=== PATIENT | male | born 1945 | race Caucasian/White ===

== ENCOUNTER 2021-04-12 05:41 | Emergency (ER) | payer MEDICARE, SELFPAY ==
[2021-04-12 05:44] VITALS: BP 166/84; PULSE 102; RESP 18; TEMP 36.9; O2SAT 96
[2021-04-12 06:13] LABS: Add Urine Microscopic? YES; Appearance Urine Cloudy (Clear); Bacteria Urine Trace /hpf; Bilirubin Urine Negative (Negative); Blood Urine 1+ (Negative); Color Urine Yellow (Yellow); Glucose Urine UA 3+ mg/dL (Negative); Ketones Urine Trace mg/dL (Negative); Leukocyte Esterase Ur 3+ LEU/UL (Negative); Mucus Urine Rare /lpf; Nitrate Urine Negative (Negative); Protein Urine 3+ mg/dL (Negative); RBC Urine 21-50 /hpf (0-2); Specific Grav Ur 1.009 (1.001-1.035); Squamous Epithelial Cell Urine Rare /hpf (Few); Urobilinogen Urine Negative mg/dL (<2.0); WBC Urine >75 /hpf
[2021-04-12 06:16] LABS: Alanine Aminotransferase 18 U/L (4-50); Albumin Level 3.9 g/dL (3.5-5.1); Alkaline Phosphatase 96 U/L (38-126); Anion Gap 9 mmol/L (8-16); Aspartate Amino Transferase 27 U/L (17-59); Bilirubin,Total 0.7 mg/dL (0.2-1.3); Blood Urea Nitrogen 22 mg/dL (9-20); Calcium 9.1 mg/dL (8.4-10.2); Carbon Dioxide 26 mmol/L (22-30); Chloride 103 mmol/L (98-107); Estimated CRCL calculation 54 ml/min; Estimated Glomerular Filt Rate 49; Glucose 238 mg/dL (75-110); Potassium 4.1 mmol/L (3.4-5.0); Sodium 138 mmol/L (137-145)
[2021-04-12 06:24] LABS: Basophils Absolute Auto 0.1 K/mm3 (0.0-0.1); Basophils Percent Auto 0.5 % (0.2-1.2); Eosinophils Absolute Auto 0.1 K/mm3 (0-0.3); Eosinophils Percent Auto 0.8 % (0-4.4); Hematocrit 38.4 % (42.0-52.0); Hemoglobin 12.4 g/dL (14.0-18.0); Immature Granulocyte Absolute 0.05 K/mm3 (0.00-0.031); Immature Granulocyte Percent A 0.4 % (0-0.5); Lymphocytes Absolute Auto 1.09 K/mm3 (0.9-3.2); Lymphocytes Percent Auto 8.8 % (18.3-44.2); Mean Corpuscular HGB Conc 32.3 g/dl (32-36); Mean Platelet Volume 10.3 fl (7.4-10.4); Monocytes Percent Auto 7.7 % (2.6-8.5); Neutrophils Absolute Auto 10.1 K/mm3 (1.3-6.7); Neutrophils Percent Auto 81.8 % (45.5-73.1); Platelet Count Result 193 k/mm3 (150-375); Red Blood Count 3.88 M/mm3 (4.6-6.20); Red Cell Distribution Width 15.7 % (11.5-14.5); White Blood Count 12.4 K/mm3 (4.5-10.0)
--- NOTE | 2021-04-12 07:06 | ED.MALEGU ---
HPI - Male Genitourinary General Chief complaint: Urogenital-Male Stated complaint: INCREASE URINATION Time Seen by Provider: 04/12/21 07:05 History of Present Illness HPI Narrative: dysuria, urinary frequency, urgency for the past 2 days. Reports going a small amount every 10 minutes. He has never had this problem before. No h/o BPH, UTI. Denies abdominal pain, vomiting, fever, hematuria, chest pain, SOB. Reports good blood sugar control. Last A1C 6.7. Related Data Home Medications Medication Instructions Recorded Confirmed allopurinol 300 mg PO BID 04/12/21 04/12/21 amlodipine benzoate 10 mg PO DAILY 04/12/21 04/12/21 clopidogrel 75 mg PO DAILY 04/12/21 04/12/21 doxazosin [Cardura] 2 mg PO DAILY 04/12/21 04/12/21 glipizide mg PO 04/12/21 hydralazine-hydrochlorothiazid cap PO 04/12/21 insulin detemir U-100 [Levemir 100 unit SUBCUT DAILY 04/12/21 04/12/21 U-100 Insulin] isosorbide mononitrate 120 mg PO DAILY 04/12/21 04/12/21 levothyroxine 88 mcg PO DAILY 04/12/21 04/12/21 levothyroxine [Euthyrox] 88 mcg PO DAILY 04/12/21 04/12/21 losartan 25 mg PO DAILY 04/12/21 04/12/21 magnesium oxide 400 mg PO DAILY 04/12/21 04/12/21 metoprolol succinate 25 mg PO DAILY 04/12/21 04/12/21 Allergies Allergy/AdvReac Type Severity Reaction Status Date / Time Hbavlbb-Xza-Uhy Reductase Allergy Rash Verified 04/12/21 06:00 Inhibitor Review of Systems Review of Systems: All systems reviewed & are unremarkable except as noted in HPI and below Constitutional: Constitutional: Denies chills and Denies fever(s) Cardiovascular: Cardiovascular: Denies chest pain Respiratory: Respiratory: Denies dyspnea Gastrointestinal: Gastrointestinal: Denies abdominal pain, Denies diarrhea and Denies vomiting Genitourinary: Genitourinary: Denies hematuria, Reports dysuria, Denies penile discharge, Denies testicular pain, Reports urinary frequency and Denies urinary incontinence Musculoskeletal: Musculoskeletal: Denies back pain Neurologic: Reports system reviewed and no additional complaints, except as documented Endocrine: Endocrine: Reports polyuria PMFSH Past Medical History Medical History (Updated 04/12/21 @ 07:27 by Josh Kraft MD) A-fib Chronic kidney disease Coronary artery disease Diabetes Hypertension Hypothyroidism Myocardial infarct, old Obesities, morbid Sleep apnea Social History Social History (Updated 04/12/21 @ 07:23 by Josh Kraft MD) Substance use: never Gender identity (if verbalized by the patient): Male Sexual Orientation (if Verbalized by the Patient): Straight or Heterosexual Exam Const: General: no acute distress and alert Orientation/consciousness: patient oriented x3 HENMT: Head: normal to inspection Neck: Neck: normal visual inspection Resp: Effort & Inspection: normal respiratory effort Auscultation: clear to auscultation bilaterally, no rales, no rhonchi and no wheezes Cardio: Jugular venous distension: no JVD Rate: regular rate Rhythm: regular rhythm Heart sounds: no murmurs GI: Inspection: non-distended GI Palp: Yes Soft to palpation and No Tenderness to palpation present (GI) : General: Yes bladder normal to palpation and Yes no CVA tenderness Skin: General skin exam: normal color Neuro: General: patient oriented x3, moves all extremities and no focal motor deficits Cranial nerves: Yes CN's II-XII intact bilaterally Speech: normal speech Extrem: General: edema left (mild) Psych: Appearance: well kempt Affect: normal affect Course Vital Signs Vital signs: Vital Signs Temperature 36.9 C 04/12/21 05:44 Pulse Rate 102 H 04/12/21 05:44 Respiratory Rate 18 04/12/21 05:44 Blood Pressure 166/84 H 04/12/21 05:44 Pulse Oximetry 96 04/12/21 05:44 Temperature 36.9 C 04/12/21 05:44 Pulse Rate 92 04/12/21 07:45 Respiratory Rate 16 04/12/21 07:45 Blood Pressure 160/78 H 04/12/21 07:45 Pulse Oximetry 95 04/12/21 07:45
--- NOTE | 2021-04-12 07:22 | PC.NURSE ---
Pt states he recently moved to the area from [place], after the second Pzifer shot on January 13, I needed 140cc blood drained from my L knee, and then I had 60cc blood drained from R knee. I was hospitalized for 28 days, now I need to walk with a walker . Denies pain at rest, difficulty when getting OOB. Endorses urinary frequeny
[2021-04-12 07:45] VITALS: BP 160/78; PULSE 92; RESP 16; O2SAT 95
[2021-04-12 08:45] VITALS: BP 147/67; PULSE 82; RESP 15; O2SAT 95
--- NOTE | 2021-04-12 09:24 | PC.NURSE ---
Pt resting on cart HOB elevated, provided water. Transport called for return to [facility], pt will be d/davi with antibiotic printed rxn, verbalizes understanding
--- NOTE | 2021-04-12 10:21 | PC.NURSE ---
[facility] transport ETA 30 min
== END 2021-04-12 11:06 ==
PROVIDERS: Emergency Medicine; Emergency Provider Emergency Medicine; PCP Registered Nurse
DX: N30.00 Acute cystitis without hematuria (principal); I48.91 Unspecified atrial fibrillation; E11.22 Type 2 diabetes mellitus with diabetic chronic kidney disease; I12.9 Hypertensive chronic kidney disease with stage 1 through stage 4 chronic kidney disease, or unspecified chronic kidney disease; N18.9 Chronic kidney disease, unspecified; Z79.4 Long term (current) use of insulin; I25.10 Atherosclerotic heart disease of native coronary artery without angina pectoris; E03.9 Hypothyroidism, unspecified; I25.2 Old myocardial infarction; G47.30 Sleep apnea, unspecified; E66.01 Morbid (severe) obesity due to excess calories; Z68.32 Body mass index [BMI] 32.0-32.9, adult
CPT/HCPCS: 36415; 80053; 81001; 85025; 87077; 87086; 87186; 96365; 99284; J0696

== ENCOUNTER 2021-05-07 18:38 | Emergency (ER) | payer MEDICARE, SELFPAY ==
--- NOTE | ~2021-05-07 | XR_ITS ---
EXAMINATION: XR chest 2V DATE: 05/07/2021 19:05 INDICATION: Shortness of breath. Left lower limb edema. TECHNIQUE: frontal and lateral views of the chest were obtained. COMPARISON: None FINDINGS: Asymmetric hazy opacity in the left lower lung zone with loss of definition of the left heart border which on the lateral projection appears to correspond to a prominent pericardial fat pad. Also in the lateral lung zone is calcified nodule at the posterior upper lung zone consistent with old granuloma tous disease. No other airspace opacities, pulmonary edema, pleural effusion or pneumothorax. The car diomediastinal silhouette is within normal limits for AP technique. There are bridging osteophytes at multiple levels in the spine, consistent with diffuse idiopathic skeletal hyperostosis (DISH). Likel y cholecystectomy clips in the upper abdomen. IMPRESSION: 1. No acute cardiopulmonary disease. Reviewed, dictated and finalized at location A.
--- NOTE | ~2021-05-07 | CT_ITS ---
EXAMINATION: CTA chest PE protocol DATE: 05/07/2021 21:54 INDICATION: Shortness of breath TECHNIQUE: Computed tomography (CT) pulmonary angiogram of the chest was performed with 100 mL Omnipa que-350 intravenous contrast. Additional 3D reconstructions utilizing coronal maximum intensity proje ction (MIP) were performed. Automated exposure control and iterative reconstruction technique were em ployed. The dose-length product was 887.53 mGy-cm. COMPARISON: None FINDINGS: Good contrast opacification of the pulmonary arteries. There is moderate streak artifact from dense c ontrast in the superior vena cava and right atrium. Moderate respiratory motion artifact most promine nt at the lower lung zones where it decreases sensitivity in the subsegmental pulmonary arteries. No pulmonary embolism identified. Unilateral calcified pleural plaques in the left hemithorax suggesting a prior exudative effusion. Calcified right upper lobe nodule consistent with old granulomatous dise ase. There are a few linear bands of discoid atelectasis/scarring in the lingula and left upper and l ower lobes. No pneumonia, pulmonary edema, pleural effusion or pneumothorax. Heart size is normal. At herosclerotic coronary artery calcifications and likely coronary artery stenting. Aortic valve calcif ication. No pericardial effusion. No pathologically enlarged thoracic lymphadenopathy. Visualized upp er abdomen is unremarkable. Mild thoracic spondylosis with bridging osteophytes at multiple levels co nsistent with diffuse idiopathic skeletal hyperostosis (DISH). IMPRESSION: 1. No pulmonary embolus or other acute cardiopulmonary disease. Reviewed, dictated and finalized at location A.
[2021-05-07 18:47] VITALS: BP 161/66; PULSE 72; RESP 16; TEMP 36.8; O2SAT 97
--- NOTE | 2021-05-07 18:50 | ECG_ITS ---
Measurements Intervals [place] Rate: 70 P: GA: 0 QRS: -3 QRSD: 125 T: 55 QT: 469 QTc: 506 Interpretive Statements ATRIAL FLUTTER/TACHYCARDIA INTRAVENTRICULAR CONDUCTION DELAY BORDERLINE ST-T WAVE ABNORMALITY- ANTEROLAT/HIGH LAT LEADS BASELINE ARTIFACT- I, II, III, AVR, AVL, AVF, V1-V6 ABNORMAL ECG Electronically Signed On 05-08-2021 7:23:39 CDT by Raghav Robins D.O.
[2021-05-07 18:52] VITALS: PULSE 71
[2021-05-07 19:04] LABS: Basophils Absolute Auto 0.1 K/mm3 (0.0-0.1); Basophils Percent Auto 0.8 % (0.2-1.2); Eosinophils Absolute Auto 0.4 K/mm3 (0-0.3); Eosinophils Percent Auto 5.6 % (0-4.4); Hematocrit 37.5 % (42.0-52.0); Hemoglobin 11.5 g/dL (14.0-18.0); Immature Granulocyte Absolute 0.03 K/mm3 (0.00-0.031); Immature Granulocyte Percent A 0.4 % (0-0.5); Lymphocytes Absolute Auto 2.41 K/mm3 (0.9-3.2); Lymphocytes Percent Auto 30.6 % (18.3-44.2); Mean Corpuscular HGB Conc 30.7 g/dl (32-36); Mean Corpuscular Hemoglobin 31.1 pg (26-34); Mean Corpuscular Volume 101.4 fl (80-100); Mean Platelet Volume 9.9 fl (7.4-10.4); Monocytes Absolute Auto 0.7 K/mm3 (0.1-0.6); Monocytes Percent Auto 9.3 % (2.6-8.5); Neutrophils Absolute Auto 4.2 K/mm3 (1.3-6.7); Neutrophils Percent Auto 53.3 % (45.5-73.1); Platelet Count Result 234 k/mm3 (150-375); White Blood Count 7.9 K/mm3 (4.5-10.0)
--- NOTE | 2021-05-07 19:25 | ED.GENADULT ---
HPI - General Adult General Chief complaint: Shortness of Breath/Dyspnea Stated complaint: SOB Time Seen by Provider: 05/07/21 19:05 History of Present Illness HPI narrative: Patient 76-year-old gentleman who presents the emergency department with chief complaint of left lower extremity swelling and shortness of breath. The patient reports he has history of a heart attack in the past also has had peripheral edema for extremities. Patient states that he noticed that his left leg was a little bit more swollen than normal and then this evening also was short of breath when he was ambulating. Patient states his breathing he thinks is related to his mask because he reports he hates wearing a mask patient denies fever denies chills denies productive cough denies chest pain Related Data Home Medications Medication Instructions Recorded Confirmed allopurinol 300 mg PO BID 04/12/21 04/12/21 amlodipine benzoate 10 mg PO DAILY 04/12/21 04/12/21 clopidogrel 75 mg PO DAILY 04/12/21 04/12/21 doxazosin [Cardura] 2 mg PO DAILY 04/12/21 04/12/21 glipizide mg PO 04/12/21 hydralazine-hydrochlorothiazid cap PO 04/12/21 insulin detemir U-100 [Levemir 100 unit SUBCUT DAILY 04/12/21 04/12/21 U-100 Insulin] isosorbide mononitrate 120 mg PO DAILY 04/12/21 04/12/21 levothyroxine 88 mcg PO DAILY 04/12/21 04/12/21 levothyroxine [Euthyrox] 88 mcg PO DAILY 04/12/21 04/12/21 losartan 25 mg PO DAILY 04/12/21 04/12/21 magnesium oxide 400 mg PO DAILY 04/12/21 04/12/21 metoprolol succinate 25 mg PO DAILY 04/12/21 04/12/21 Allergies Allergy/AdvReac Type Severity Reaction Status Date / Time Jldeycj-Qgt-Fqt Reductase Allergy Rash Verified 05/07/21 18:51 Inhibitor Review of Systems Review of Systems: Narrative: A 10 system review of systems was completed on the patient and is negative except for what is stated in the HPI. Nursing and ancillary documentation was reviewed. [facility] Past Medical History Medical History A-fib Chronic kidney disease Coronary artery disease Diabetes Hypertension Hypothyroidism Myocardial infarct, old Obesities, morbid Sleep apnea Social History Social History Substance use: never Gender identity (if verbalized by the patient): Male Exam Narrative: Exam Narrative: GENERAL: Well-appearing, well-nourished, and in no acute distress. HEAD: Normocephalic, atraumatic. EYES: PERRLA and EOMI. ENT: Nares clear, no rhinorrhea or epistaxis. Mucous membranes moist. NECK: Supple. CHEST: Clear to auscultation. No respiratory distress. HEART: Regular rate and rhythm. No murmur heard. Normal peripheral pulses. ABDOMEN: Soft, nontender, nondistended, normal active bowel sounds. EXTREMITIES: Normal range of motion. +1 edema. SKIN: Warm, dry, no rash. NEURO: No focal deficits. Alert and oriented x3. PSYCH: Normal mood and affect. Course Vital Signs Vital signs: Vital Signs Temperature 36.8 C 05/07/21 18:47 Pulse Rate 72 05/07/21 18:47 Respiratory Rate 16 05/07/21 18:47 Blood Pressure 161/66 H 05/07/21 18:47 Pulse Oximetry 97 05/07/21 18:47 Temperature 36.8 C 05/07/21 18:47 Pulse Rate 69 05/07/21 22:01 Respiratory Rate 14 05/07/21 22:01 Blood Pressure 158/62 H 05/07/21 22:01 Pulse Oximetry 94 05/07/21 22:01 Medical Decision Making Vital Signs Vital Signs: Vital Signs Temperature 36.8 C 05/07/21 18:47 Pulse Rate 72 05/07/21 18:47 Respiratory Rate 16 05/07/21 18:47 Blood Pressure 161/66 H 05/07/21 18:47 Pulse Oximetry 97 05/07/21 18:47 Temperature 36.8 C 05/07/21 18:47 Pulse Rate 69 05/07/21 22:01 Respiratory Rate 14 05/07/21 22:01 Blood Pressure 158/62 H 05/07/21 22:01 Pulse Oximetry 94 05/07/21 22:01 Lab Data Result diagrams: 05/07/21 18:59 05/07/21 18:59 Labs: Lab Results
[2021-05-07 19:39] VITALS: BP 156/68; PULSE 71; RESP 17; O2SAT 98
[2021-05-07 20:03] LABS: INR 1.4; Prothrombin Time 17.1 Seconds (11.1-14.7)
[2021-05-07 20:04] LABS: Partial Thromboplastin Time 35.1 SECONDS (22.3-36.8)
[2021-05-07 20:23] VITALS: BP 167/62; PULSE 67; RESP 19; O2SAT 96
--- NOTE | 2021-05-07 20:31 | PC.NURSE ---
legal editor called lab on bnp, bmp, and baseline that hasnt resulted and spoke to meaghan. she states she sees that it was sent down at 659pm and isn't sure why it isnt resulted yet. she states she will look into it.
[2021-05-07 20:47] LABS: Anion Gap 8 mmol/L (8-16); Blood Urea Nitrogen 31 mg/dL (9-20); Calcium 8.9 mg/dL (8.4-10.2); Carbon Dioxide 25 mmol/L (22-30); Chloride 106 mmol/L (98-107); Estimated CRCL calculation 50 ml/min; Estimated Glomerular Filt Rate 42; Glucose 223 mg/dL (65-110); Potassium 4.1 mmol/L (3.4-5.0); Sodium 139 mmol/L (137-145)
[2021-05-07 20:55] LABS: NT Pro B Type Natriuretic Pept 447 pg/mL (5-100)
[2021-05-07 22:01] VITALS: BP 158/62; PULSE 69; RESP 14; O2SAT 94
[2021-05-08] MEDS: ENOXAPARIN 100 MG/ML SYRINGE SUB-Q
[2021-05-08] MEDS: ENOXAPARIN 30 MG/0.3 ML SYRINGE SUB-Q
[2021-05-08 00:05] VITALS: BP 152/63; PULSE 67; RESP 14; O2SAT 100
== END 2021-05-08 00:10 | disposition home or self-care (01) ==
PROVIDERS: Emergency Medicine; Emergency Provider Emergency Medicine; PCP Registered Nurse
DX: R60.0 Localized edema (principal); I25.2 Old myocardial infarction; I48.91 Unspecified atrial fibrillation; I25.10 Atherosclerotic heart disease of native coronary artery without angina pectoris; E11.22 Type 2 diabetes mellitus with diabetic chronic kidney disease; I12.9 Hypertensive chronic kidney disease with stage 1 through stage 4 chronic kidney disease, or unspecified chronic kidney disease; N18.9 Chronic kidney disease, unspecified; Z79.4 Long term (current) use of insulin; E03.9 Hypothyroidism, unspecified; E66.01 Morbid (severe) obesity due to excess calories; Z68.39 Body mass index [BMI] 39.0-39.9, adult; G47.30 Sleep apnea, unspecified; I48.92 Unspecified atrial flutter; I45.9 Conduction disorder, unspecified; R00.0 Tachycardia, unspecified
CPT/HCPCS: 36415; 71046; 71275; 80048; 83880; 84484; 85025; 85610; 85730; 93005; 96372; 99284; J1650; Q9967

== ENCOUNTER 2021-05-08 07:13 | Outpatient (CLI) | payer MEDICARE, SELFPAY ==
--- NOTE | ~2021-05-08 | US_ITS ---
EXAMINATION: US venous doppler [facility] DATE: 05/08/2021 07:37 INDICATION: Left lower limb swelling TECHNIQUE: [place] scale images without and with compression and Doppler images of the left lower extrem ity veins were obtained. COMPARISON: None FINDINGS: The left common femoral vein, profunda femoral vein, femoral vein, popliteal vein, peroneal trunk, posterior tibial veins, and greater saphenous vein are patent. IMPRESSION: 1. Patent left lower extremity veins. No evidence of deep venous thrombosis. Reviewed, dictated and finalized at location A.
== END 2021-05-08 07:14 | disposition home or self-care (01) ==
LOC: ANHIMG 07:14
PROVIDERS: PCP Registered Nurse; Visit Provider Emergency Medicine
DX: M79.89 Other specified soft tissue disorders (principal)
CPT/HCPCS: 93971

== ENCOUNTER 2021-06-02 08:30 | Outpatient (CLI) | payer MEDICARE, SELFPAY ==
--- NOTE | 2021-06-02 | ECHO_ITS ---
Patient Info Name: Nigel aWng Age: 76 years : 1945 Gender: Male Ht: 72 in Wt: 278 lbs BSA: 2.58 m2 HR: 72 bpm BP: 156 / 77 mmHg Technical Quality: Good Exam Date: 06/02/2021 9:04 AM Exam Location: [facility] Patient Status: Outpatient Admit Date: 06/02/2021 Staff Ordering Physician: Candace, Amanda BUTLER Rehab Technician: Jaimee Mercado RDCS Attending Provider: Candace, Amanda BUTLER Exam Type: CA echo doppler color flow Study Info Indications - HTN JOSE GUADALUPE Complete two-dimensional, color flow and Doppler transthoracic echocardiogram is performed. Summary 1. Complete two-dimensional, color flow and Doppler transthoracic echocardiogram is performed. 2. Left ventricular systolic function is hyperdynamic, estimated at 65-70%. 3. There is mildly increased left ventricular wall thickness. 4. The left ventricular diastolic function is abnormal. 5. Left atrial chamber dimension is mildly enlarged. 6. There is mild aortic valve calcification. 7. The aortic valve is trileaflet. 8. There is no aortic valve stenosis. 9. There is mild mitral valve calcification. 10. There is mild tricuspid valve regurgitation. 11. Moderate pulmonary hypertension, estimated pulmonary arterial systolic pressure is 49 mmHg. 12. There is mild pulmonic regurgitation. Left Ventricle Left ventricular chamber dimension is normal. Left ventricular systolic function is hyperdynamic, estimated at 65-70%. There is mildly increased left ventricular wall thickness. Left ventricular septal wall motion is normal. The left ventricular diastolic function is abnormal. Right Ventricle Right ventricular chamber dimension is normal. Right ventricular systolic function is normal. Left Atria Left atrial chamber dimension is mildly enlarged. Right Atria Right atrial chamber dimension is normal. Atrial Septum Intact interatrial septum visualized by color flow imaging. Aortic Valve The aortic valve is trileaflet. There is no aortic valve stenosis. There is no aortic valve regurgitation. There is mild aortic valve calcification. Pulmonic Valve The pulmonic valve is normal. There is no pulmonic valve stenosis. There is mild pulmonic regurgitation. Mitral Valve The mitral valve has normal leaflets. There is no mitral valve stenosis. There is no mitral valve regurgitation. There is mild mitral valve calcification. Tricuspid Valve The tricuspid valve leaflets are normal. There is no significant tricuspid valve stenosis. There is mild tricuspid valve regurgitation. Moderate pulmonary hypertension, estimated pulmonary arterial systolic pressure is 49 mmHg. Pericardium/Pleural The pericardium appears normal. There is no pericardial effusion. Inferior Vena Cava Normal inferior vena cava with >50% collapse upon inspiration consistent with elevated right atrial pressure, 10 mmHg. Aorta The aortic root size at the sinus of Valsalva is normal. The prox ascending aorta size is normal. Left Ventricular Outflow Tract Name Value Normal LVOT 2D LVOT Diameter 2.1 cm LVOT Doppler LVOT Peak Gradient
== END 2021-06-02 08:31 | disposition home or self-care (01) ==
LOC: ANHCARD 08:33
PROVIDERS: PCP Registered Nurse; Visit Provider Registered Nurse
DX: R60.0 Localized edema (principal); I48.0 Paroxysmal atrial fibrillation; I10 Essential (primary) hypertension; I08.3 Combined rheumatic disorders of mitral, aortic and tricuspid valves
CPT/HCPCS: 93306

== ENCOUNTER 2021-06-06 11:52 | Emergency (ER) | payer MEDICARE, SELFPAY ==
--- NOTE | ~2021-06-06 | XR_ITS ---
XR foot RT min 3V 06/06/2021 12:44 Indication: Right foot pain Procedure: 4 views right foot Comparison: No prior studies for comparison. Findings: There is polyarticular osteoarthritis. No acute fracture or traumatic malalignment. There i s a healed fracture of the fourth proximal phalanx. There is moderate diffuse soft tissue swelling of the foot. Osteopenia. No foreign bodies. There are prominent degenerative calcaneal enthesophytes. T here are extensive atherosclerotic changes. Impression: 1: No acute fracture. Reviewed, dictated and finalized at location A. Impression: 1: No acute fracture.
[2021-06-06 12:00] VITALS: BP 148/60; PULSE 106; RESP 20; TEMP 36.5; O2SAT 96
[2021-06-06 12:47] LABS: Basophils Absolute Auto 0.1 K/mm3 (0.0-0.1); Basophils Percent Auto 0.7 % (0.2-1.2); Eosinophils Absolute Auto 0.3 K/mm3 (0-0.3); Eosinophils Percent Auto 2.7 % (0-4.4); Hematocrit 36.4 % (42.0-52.0); Hemoglobin 11.3 g/dL (14.0-18.0); Immature Granulocyte Absolute 0.05 K/mm3 (0.00-0.031); Immature Granulocyte Percent A 0.5 % (0-0.5); Immature Platelet Fraction Pct 1.8 % (0.9-11.2); Lymphocytes Absolute Auto 1.41 K/mm3 (0.9-3.2); Lymphocytes Percent Auto 13.8 % (18.3-44.2); Mean Corpuscular Hemoglobin 30.6 pg (26-34); Mean Corpuscular Volume 98.6 fl (80-100); Mean Platelet Volume 9.9 fl (7.4-10.4); Monocytes Absolute Auto 0.8 K/mm3 (0.1-0.6); Monocytes Percent Auto 7.5 % (2.6-8.5); Neutrophils Absolute Auto 7.6 K/mm3 (1.3-6.7); Neutrophils Percent Auto 74.8 % (45.5-73.1); Platelet Count Result 280 k/mm3 (150-375); Red Blood Count 3.69 M/mm3 (4.6-6.20); Red Cell Distribution Width 15.2 % (11.5-14.5); White Blood Count 10.2 K/mm3 (4.5-10.0)
[2021-06-06 12:56] LABS: INR 1.8; Prothrombin Time 20.8 Seconds (11.1-14.7)
[2021-06-06 12:57] LABS: Partial Thromboplastin Time 28.3 SECONDS (22.3-36.8)
[2021-06-06 13:48] LABS: Alanine Aminotransferase 15 U/L (4-50); Albumin Level 3.9 g/dL (3.5-5.1); Alkaline Phosphatase 99 U/L (38-126); Anion Gap 6 mmol/L (8-16); Bilirubin,Total 0.3 mg/dL (0.2-1.3); Blood Urea Nitrogen 32 mg/dL (9-20); CRP 8.5 mg/dL (<1.0); Calcium 9.2 mg/dL (8.4-10.2); Carbon Dioxide 24 mmol/L (22-30); Chloride 106 mmol/L (98-107); Estimated CRCL calculation 51 ml/min; Estimated Glomerular Filt Rate 46; Glucose 208 mg/dL (65-110); Potassium 3.7 mmol/L (3.4-5.0); Sodium 136 mmol/L (137-145)
[2021-06-06 13:53] LABS: Aspartate Amino Transferase 24 U/L (17-59)
[2021-06-06 15:29] VITALS: BP 159/64; PULSE 82; RESP 20; TEMP 36.8; O2SAT 99
--- NOTE | 2021-06-06 17:18 | ED.WOUNDLAC ---
HPI - Wound/Laceration General Chief Complaint: Wound/Laceration Stated Complaint: SORE TOE Time Seen by Provider: 06/06/21 16:04 History of Present Illness HPI narrative: Patient is a 76-year-old male who presents to the ER with possible infection to his right toe and foot. Reports 5 days ago he was walking into his closet when he stepped on a toothpick. He removed from his toe. 2 days later he developed redness and swelling to his foot and toe. He has noticed some purulent drainage since then as well. He saw his PCP today who then referred him to the ER for further evaluation. Patient denies any fevers or chills or sweats. He has no exertional fatigue. He has no chest pain. He denies significant pain in his toe or foot only some aching. Worse with walking. Better with rest. Related Data Home Medications Medication Instructions Recorded Confirmed allopurinol 300 mg PO BID 04/12/21 04/12/21 amlodipine benzoate 10 mg PO DAILY 04/12/21 04/12/21 clopidogrel 75 mg PO DAILY 04/12/21 04/12/21 doxazosin [Cardura] 2 mg PO DAILY 04/12/21 04/12/21 glipizide mg PO 04/12/21 hydralazine-hydrochlorothiazid cap PO 04/12/21 insulin detemir U-100 [Levemir 100 unit SUBCUT DAILY 04/12/21 04/12/21 U-100 Insulin] isosorbide mononitrate 120 mg PO DAILY 04/12/21 04/12/21 levothyroxine 88 mcg PO DAILY 04/12/21 04/12/21 levothyroxine [Euthyrox] 88 mcg PO DAILY 04/12/21 04/12/21 losartan 25 mg PO DAILY 04/12/21 04/12/21 magnesium oxide 400 mg PO DAILY 04/12/21 04/12/21 metoprolol succinate 25 mg PO DAILY 04/12/21 04/12/21 Allergies Allergy/AdvReac Type Severity Reaction Status Date / Time Wlhiape-Hyg-Woq Reductase AdvReac Cramping Verified 06/06/21 15:44 Inhibitor of the Muscles Review of Systems Review of Systems: All systems reviewed & are unremarkable except as noted in HPI and below Constitutional: Constitutional: Denies chills, Denies fever(s) and Denies weakness Cardiovascular: Cardiovascular: Denies chest pain, Denies rapid heart rate and Denies radiating jaw, neck or arm pain Respiratory: Respiratory: Denies cough and Denies dyspnea Musculoskeletal: Musculoskeletal: Denies arthralgias, Denies joint swelling and Denies muscle cramps Integumentary/Breasts: Skin/Breast: Reports erythema, Denies rash and Denies skin ulcer PMFSH Past Medical History Medical History (Updated 06/06/21 @ 17:25 by Jomar Madera MD) A-fib Chronic kidney disease Coronary artery disease Diabetes Hypertension Hypothyroidism Myocardial infarct, old Obesities, morbid Sleep apnea Surgical History Surgical History (Updated 06/06/21 @ 17:20 by Jomar Madera MD) History of cholecystectomy History of percutaneous coronary intervention Social History Social History Substance use: never Gender identity (if verbalized by the patient): Male Exam Narrative: GENERAL: Well-appearing, overweight, and in no acute distress. HEAD: Normocephalic, atraumatic. ENT: Mucous membranes moist. CHEST: Clear to auscultation. No respiratory distress. HEART: Regular rate and rhythm. Normal peripheral pulses. ABDOMEN: Soft, nontender, nondistended. EXTREMITIES: Normal range of motion. 2+ edema. SKIN: Warm, dry. Right great toe with wound to distal/medial aspect draining purulent material. This area has some translucent skin that appears to be the shedding of skin. No necrosis noted. Surrounding cellulitis of the toe that has moved proximally towards the ankle. Only mild tenderness at the great toe. No tenderness of the midfoot/ankle. NEURO: No focal deficits. Alert and oriented x3. PSYCH: Normal mood and affect. Course Course Emergency Course: I contacted Fiona Rodríguez who is on-call for the patient's primary nurse practitioner. Patient was updated with his Tdap today. We have discussed lab results and imaging results. Patient would prefer to have outpatient treatment
[2021-06-06] MEDS: DOXYCYCLINE HYCLATE 100 MG TABLET PO (17:38)
[2021-06-06 18:19] VITALS: BP 160/61; PULSE 82; RESP 16; O2SAT 97
== END 2021-06-06 18:21 | disposition home or self-care (01) ==
PROVIDERS: Emergency Medicine; Emergency Provider Emergency Medicine; PCP Registered Nurse
DX: L08.9 Local infection of the skin and subcutaneous tissue, unspecified (principal); I48.91 Unspecified atrial fibrillation; E11.22 Type 2 diabetes mellitus with diabetic chronic kidney disease; I12.9 Hypertensive chronic kidney disease with stage 1 through stage 4 chronic kidney disease, or unspecified chronic kidney disease; N18.9 Chronic kidney disease, unspecified; I25.2 Old myocardial infarction; E66.01 Morbid (severe) obesity due to excess calories; Z68.36 Body mass index [BMI] 36.0-36.9, adult; G47.30 Sleep apnea, unspecified; Z79.4 Long term (current) use of insulin
CPT/HCPCS: 36415; 73630; 80053; 83605; 85025; 85055; 85610; 85730; 86140; 87040; 87070; 87147; 87205; 96365; 99284; A9270; J0696

== ENCOUNTER 2021-07-01 04:13 | Emergency (ER) | payer MEDICARE, SELFPAY ==
--- NOTE | ~2021-07-01 | XR_ITS ---
EXAMINATION: XR knee LT 3V DATE: 07/01/2021 04:47 INDICATION: Left lower limb swelling. TECHNIQUE: 3 views of left knee were obtained. COMPARISON: None. FINDINGS: Bone alignment is normal. No fracture. There is mariola and screw fixation of diaphysis of left femur. There is mild osteoarthritis of medial compartment and moderate osteoarthritis of lateral and patellofemoral compartments. There is a moderate-sized knee joint effusion. IMPRESSION: 1. Moderate left knee osteoarthritis. 2. Moderate-sized left knee joint effusion. Reviewed, dictated and finalized at location A.
[2021-07-01 04:13] VITALS: BP 153/62; PULSE 74; RESP 20; TEMP 36.4; O2SAT 99
--- NOTE | 2021-07-01 04:26 | ED.GENADULT ---
HPI - General Adult General Chief complaint: Extremity Injury, Upper Stated complaint: l knee pain History of Present Illness HPI narrative: Patient presents with left knee pain. Patient reports pain has been getting progressively worse over the past 3 days and associated with edema. He does report a history of gout and osteoarthritis. Denies any trauma to the area reports pain is diffuse, achy, worse with use his knee. Denies history of IV drug use she denies fevers, chills, nausea, vomiting. Patient also reports left arm soreness which started this evening. Reports he has been relying on his left arm a bit more to get around as he has had lower extremity pain and is using his arm for balance. Thinks maybe he pulled a muscle. Pain is achy, constant, worse with using the left upper extremity, no radiation again patient denies any trauma Related Data Home Medications Medication Instructions Recorded Confirmed allopurinol 300 mg PO BID 04/12/21 04/12/21 amlodipine benzoate 10 mg PO DAILY 04/12/21 04/12/21 clopidogrel 75 mg PO DAILY 04/12/21 04/12/21 doxazosin [Cardura] 2 mg PO DAILY 04/12/21 04/12/21 glipizide mg PO 04/12/21 hydralazine-hydrochlorothiazid cap PO 04/12/21 insulin detemir U-100 [Levemir 100 unit SUBCUT DAILY 04/12/21 04/12/21 U-100 Insulin] isosorbide mononitrate 120 mg PO DAILY 04/12/21 04/12/21 levothyroxine 88 mcg PO DAILY 04/12/21 04/12/21 levothyroxine [Euthyrox] 88 mcg PO DAILY 04/12/21 04/12/21 losartan 25 mg PO DAILY 04/12/21 04/12/21 magnesium oxide 400 mg PO DAILY 04/12/21 04/12/21 metoprolol succinate 25 mg PO DAILY 04/12/21 04/12/21 Allergies Allergy/AdvReac Type Severity Reaction Status Date / Time Qaxoijw-Srf-Kgd Reductase AdvReac Cramping Verified 06/06/21 15:44 Inhibitor of the Muscles Review of Systems Review of Systems: CONSTITUTIONAL: Denies fever, chills, or sweats. EYES: Denies visual changes, redness, or discharge. ENT: Denies rhinorrhea, congestion, sore throat, or otalgia. CARDIOVASCULAR: Denies chest pain, palpitations, or edema. RESPIRATORY: Denies cough or dyspnea. GASTROINTESTINAL: Denies abdominal pain, nausea, vomiting, or diarrhea. GENITOURINARY: Denies dysuria or hematuria. SKIN: Denies rash or itching. MUSCULOSKELETAL: Denies back pain, or myalgia. NEUROLOGIC: Denies headache, numbness, dizziness, or weakness. PSYCHIATRIC: Denies anxiety or depression. All systems reviewed & are unremarkable except as noted in HPI and below PMFSH Past Medical History Medical History A-fib Chronic kidney disease Coronary artery disease Diabetes Hypertension Hypothyroidism Myocardial infarct, old Obesities, morbid Sleep apnea Surgical History Surgical History History of cholecystectomy History of percutaneous coronary intervention Social History Social History Substance use: never Gender identity (if verbalized by the patient): Male Sexual Orientation (if Verbalized by the Patient): Straight or Heterosexual Exam Narrative: GENERAL: Well-appearing, well-nourished, and in no acute distress. HEAD: Normocephalic, atraumatic. EYES: PERRLA and EOMI. ENT: Nares clear, no rhinorrhea or epistaxis. Mucous membranes moist. NECK: Supple. No masses. No JVD EXTREMITIES: Moderate edema to the left knee no erythema no warmth mild diffuse tenderness no focal bony tenderness no obvious deformity range of motion limited due to pain and edema SKIN: Warm, dry, no rash. NEURO: No focal deficits. Alert and oriented x3. PSYCH: Normal mood and affect. Course Reevaluation(s) Reevaluation #1: Patient is resting comfortably work-up reviewed with patient. Primary concern is for arthritis patient is appropriate for continued outpatient supportive therapies. Patient comfortable with outpatient plan. Date: 07/01/21 Ti
[2021-07-01 04:57] LABS: Basophils Absolute Auto 0.1 K/mm3 (0.0-0.1); Basophils Percent Auto 0.6 % (0.2-1.2); Eosinophils Absolute Auto 0.2 K/mm3 (0-0.3); Eosinophils Percent Auto 2.6 % (0-4.4); Hematocrit 35.8 % (42.0-52.0); Hemoglobin 11.5 g/dL (14.0-18.0); Immature Granulocyte Absolute 0.03 K/mm3 (0.00-0.031); Immature Granulocyte Percent A 0.3 % (0-0.5); Lymphocytes Absolute Auto 1.19 K/mm3 (0.9-3.2); Lymphocytes Percent Auto 13.1 % (18.3-44.2); Mean Corpuscular HGB Conc 32.1 g/dl (32-36); Mean Corpuscular Hemoglobin 31.6 pg (26-34); Mean Corpuscular Volume 98.4 fl (80-100); Mean Platelet Volume 9.6 fl (7.4-10.4); Monocytes Percent Auto 10.5 % (2.6-8.5); Neutrophils Absolute Auto 6.6 K/mm3 (1.3-6.7); Neutrophils Percent Auto 72.9 % (45.5-73.1); Platelet Count Result 191 k/mm3 (150-375); Red Blood Count 3.64 M/mm3 (4.6-6.20); Red Cell Distribution Width 15.4 % (11.5-14.5); White Blood Count 9.1 K/mm3 (4.5-10.0)
[2021-07-01 05:07] LABS: Anion Gap 6 mmol/L (8-16); Blood Urea Nitrogen 29 mg/dL (9-20); Calcium 8.9 mg/dL (8.4-10.2); Carbon Dioxide 27 mmol/L (22-30); Chloride 105 mmol/L (98-107); Estimated CRCL calculation 54 ml/min; Estimated Glomerular Filt Rate 46; Glucose 110 mg/dL (65-110); Potassium 3.4 mmol/L (3.4-5.0); Sodium 138 mmol/L (137-145)
[2021-07-01 05:33] VITALS: BP 181/70; PULSE 73; RESP 20; O2SAT 97
[2021-07-01] MEDS: ACETAMINOPHEN 500 MG TABLET 1000 MG PO (05:38)
[2021-07-01 06:02] VITALS: BP 183/75; PULSE 77; RESP 20; O2SAT 97
== END 2021-07-01 07:06 | disposition home or self-care (01) ==
PROVIDERS: Emergency Provider Emergency Medicine; PCP Registered Nurse
DX: M25.562 Pain in left knee (principal); M25.561 Pain in right knee; I48.91 Unspecified atrial fibrillation; E11.22 Type 2 diabetes mellitus with diabetic chronic kidney disease; I12.9 Hypertensive chronic kidney disease with stage 1 through stage 4 chronic kidney disease, or unspecified chronic kidney disease; N18.9 Chronic kidney disease, unspecified; I25.10 Atherosclerotic heart disease of native coronary artery without angina pectoris; E03.9 Hypothyroidism, unspecified; I25.2 Old myocardial infarction; G47.30 Sleep apnea, unspecified; E66.01 Morbid (severe) obesity due to excess calories; Z68.38 Body mass index [BMI] 38.0-38.9, adult; M17.12 Unilateral primary osteoarthritis, left knee; M10.9 Gout, unspecified; Z79.4 Long term (current) use of insulin
CPT/HCPCS: 36415; 73562; 80048; 84550; 85025; 99283; A9270

== ENCOUNTER 2021-07-26 11:51 | Outpatient (CLI) | payer MEDICARE, SELFPAY ==
[2021-07-26 13:28] LABS: Prothrombin Time 58.8 Seconds (11.1-14.7)
[2021-07-26 14:54] LABS: INR 7.2
== END 2021-07-26 11:52 | disposition home or self-care (01) ==
LOC: ANHLAB 11:53
PROVIDERS: PCP Registered Nurse; Visit Provider Registered Nurse
DX: I48.91 Unspecified atrial fibrillation (principal); Z79.01 Long term (current) use of anticoagulants
CPT/HCPCS: 36415; 85610

== ENCOUNTER 2021-07-26 16:46 | Emergency (ER) | payer MEDICARE, SELFPAY ==
[2021-07-26] VITALS (8 sets, daily range): BP systolic 132–159; BP diastolic 68–80; PULSE 85–90; RESP 16–20; TEMP 36.6–36.8; O2SAT 97–98
--- NOTE | ~2021-07-26 | CT_ITS ---
EXAMINATION: CT brain wo con EXAM DATE: 07/26/2021 17:37 INDICATION: Coagulopathy. TECHNIQUE: Spiral CT of the head was performed without contrast. Axial, coronal and sagittal images were reviewed. The dose-length product (DLP) for this examination was 605.33 mGy-cm. The exposure w as tailored according to patient size, and iterative reconstruction (ASIR) was used as additional dos e reduction technique. There is no prior study for comparison. FINDINGS: There is no acute intraparenchymal hemorrhage. No evidence of intraparenchymal brain mass lesion. No evidence of acute infarction. Please note that initial head CT has limited sensitivity f or small or acute infarctions. There is mild periventricular and subcortical hypodensity, nonspecific but probably related to small vessel ischemic disease. There is mild to moderate prominence of the sulci and ventricles related to cerebral atrophy. There is intracranial carotid arteriosclerosis. There are no extra-axial collections. There is no mass effect or midline shift. The orbits are unr emarkable. Soft tissue is unremarkable. Mild mucoperiosteal thickening. IMPRESSION: 1. No acute intracranial findings. 2. Chronic age related findings. Reviewed, dictated and finalized at location A.
[2021-07-26] MEDS: SODIUM CHLORIDE 0.9% IV 1,000 ML 999 ML IV CONT (17:08)
[2021-07-26 17:13] LABS: Basophils Absolute Auto 0.1 K/mm3 (0.0-0.1); Basophils Percent Auto 0.8 % (0.2-1.2); Eosinophils Absolute Auto 0.2 K/mm3 (0-0.3); Hematocrit 34.6 % (42.0-52.0); Hemoglobin 11.1 g/dL (14.0-18.0); Immature Granulocyte Absolute 0.02 K/mm3 (0.00-0.031); Immature Granulocyte Percent A 0.3 % (0-0.5); Lymphocytes Absolute Auto 1.86 K/mm3 (0.9-3.2); Lymphocytes Percent Auto 24.6 % (18.3-44.2); Mean Corpuscular HGB Conc 32.1 g/dl (32-36); Mean Corpuscular Hemoglobin 30.3 pg (26-34); Mean Corpuscular Volume 94.5 fl (80-100); Mean Platelet Volume 9.3 fl (7.4-10.4); Monocytes Absolute Auto 0.5 K/mm3 (0.1-0.6); Neutrophils Absolute Auto 4.9 K/mm3 (1.3-6.7); Neutrophils Percent Auto 64.3 % (45.5-73.1); Platelet Count Result 373 k/mm3 (150-375); Red Blood Count 3.66 M/mm3 (4.6-6.20); Red Cell Distribution Width 15.5 % (11.5-14.5); White Blood Count 7.6 K/mm3 (4.5-10.0)
[2021-07-26 17:25] LABS: Alanine Aminotransferase 31 U/L (4-50); Albumin Level 3.7 g/dL (3.5-5.1); Alkaline Phosphatase 107 U/L (38-126); Anion Gap 7 mmol/L (8-16); Aspartate Amino Transferase 42 U/L (17-59); Bilirubin,Total 0.3 mg/dL (0.2-1.3); Blood Urea Nitrogen 33 mg/dL (9-20); Calcium 9.2 mg/dL (8.4-10.2); Carbon Dioxide 28 mmol/L (22-30); Chloride 105 mmol/L (98-107); Estimated CRCL calculation 50 ml/min; Estimated Glomerular Filt Rate 46; Glucose 207 mg/dL (65-110); Potassium 4.2 mmol/L (3.4-5.0); Sodium 140 mmol/L (137-145)
[2021-07-26 17:29] LABS: Prothrombin Time 55.6 Seconds (11.1-14.7)
[2021-07-26 17:31] LABS: Partial Thromboplastin Time 100.9 SECONDS (22.3-36.8)
[2021-07-26 17:34] LABS: INR 6.6
--- NOTE | 2021-07-26 21:02 | ED.RECABL ---
HPI - Recheck/Abnormal Lab/Rx General Chief Complaint: Recheck/Abnormal Lab/Rx Stated Complaint: ABNORMAL LABS Time Seen by Provider: 07/26/21 16:56 Source: patient Mode of arrival: EMS Limitations: no limitations History of Present Illness HPI narrative: 76-year-old male with history of A. fib, CKD, CAD and diabetes sent from assisted living for elevated INR drawn at [facility] this morning. Patient with no complaints. No history of falls, no headache, no hematemesis, no dark tarry stools, no hematuria. No bleeding gums. States he bruises easily but no more than usual. Patient states he was sent for further evaluation from the senior living and he currently has no complaints. He currently takes Coumadin and was told to hold his Coumadin today. Related Data Home Medications Medication Instructions Recorded Confirmed allopurinol 300 mg PO BID 04/12/21 04/12/21 amlodipine benzoate 10 mg PO DAILY 04/12/21 04/12/21 clopidogrel 75 mg PO DAILY 04/12/21 04/12/21 doxazosin [Cardura] 2 mg PO DAILY 04/12/21 04/12/21 glipizide mg PO 04/12/21 hydralazine-hydrochlorothiazid cap PO 04/12/21 insulin detemir U-100 [Levemir 100 unit SUBCUT DAILY 04/12/21 04/12/21 U-100 Insulin] isosorbide mononitrate 120 mg PO DAILY 04/12/21 04/12/21 levothyroxine 88 mcg PO DAILY 04/12/21 04/12/21 levothyroxine [Euthyrox] 88 mcg PO DAILY 04/12/21 04/12/21 losartan 25 mg PO DAILY 04/12/21 04/12/21 magnesium oxide 400 mg PO DAILY 04/12/21 04/12/21 metoprolol succinate 25 mg PO DAILY 04/12/21 04/12/21 Allergies Allergy/AdvReac Type Severity Reaction Status Date / Time Wkzihjx-ZRK-NeQ Reductase AdvReac Cramping Verified 07/26/21 16:56 Inhibitor of the [Hkfrrff-Bfk-Pwz Reductase Muscles Inhibitor] Review of Systems Review of Systems: CONSTITUTIONAL: no fever, no weight loss, no confusion EYES: no vision changes, no eye pain ENT: no rhinorrhea, no sore throat, no difficulty swallowing CARDIOVASCULAR: no chest pain, no leg edema, no palpitations RESPIRATORY: no cough, no shortness of breath, no hemoptysis GASTROINTESTINAL: no abdominal pain, no nausea, no vomiting, no diarrhea GENITOURINARY: no flank pain, no dysuria, no hematuria SKIN: no rash, no jaundice MUSCULOSKELETAL: no back pain, no trauma. NEUROLOGIC: No headache, no dizziness, no focal weakness PSYCHIATRIC: No hallucinations, no suicidal ideation [facility] Past Medical History Medical History A-fib Chronic kidney disease Coronary artery disease Diabetes Hypertension Hypothyroidism Myocardial infarct, old Obesities, morbid Sleep apnea Surgical History Surgical History History of cholecystectomy History of percutaneous coronary intervention Social History Social History Substance use: never Gender identity (if verbalized by the patient): Male Sexual Orientation (if Verbalized by the Patient): Straight or Heterosexual Exam Narrative: General: alert, afebrile, answering all questions appropriately Head: normocephalic, atraumatic Eyes: EOMI bilaterally, anicteric, no injection ENT: moist mucous membranes, oropharynx patent, no rhinorrhea Neck: supple, trachea midline, no JVD Chest: equal chest rise bilaterally, no chest wall trauma noted Lungs: clear to auscultation bilaterally, respirations unlabored CV: regular rate, no JOSE GUADALUPE B, calf size equal bilaterally Abd: soft, non-distended, non-tender, no rebound, no gaurding, negative Soni's EXT: no deformity noted, moving all extremities equally Skin: warm, dry, no pallor Neuro: alert, oriented x 3; CN 2-12 grossly intact, no dysarthria Psych: affect appropriate, though content normal Course Course Emergency Course: CT brain without acute process, INR is now 6.6 down from 7.25 hours prior. Hemoglobin is 11.1 which is patient's baseline as of Se
--- NOTE | 2021-07-26 21:30 | PC.NURSE ---
Pt states there is no one that can pick him up and take to [facility]. Came in to hospital per ambulance. [facility] notified of pending return, states that they cannot provide transportation but would be able to assist pt out of car and into building. Pt agrees to taxi at discharge.
== END 2021-07-26 21:55 ==
PROVIDERS: Emergency Provider Emergency Medicine; PCP Registered Nurse
DX: R79.1 Abnormal coagulation profile (principal); I48.91 Unspecified atrial fibrillation; E11.22 Type 2 diabetes mellitus with diabetic chronic kidney disease; I12.9 Hypertensive chronic kidney disease with stage 1 through stage 4 chronic kidney disease, or unspecified chronic kidney disease; N18.9 Chronic kidney disease, unspecified; E03.9 Hypothyroidism, unspecified; I25.2 Old myocardial infarction; G47.30 Sleep apnea, unspecified; E66.01 Morbid (severe) obesity due to excess calories; Z68.35 Body mass index [BMI] 35.0-35.9, adult; Z79.84 Long term (current) use of oral hypoglycemic drugs; Z79.01 Long term (current) use of anticoagulants; Z79.4 Long term (current) use of insulin
CPT/HCPCS: 36415; 70450; 80053; 85025; 85610; 85730; 86850; 86900; 86901; 96360; 99284; J7030

== ENCOUNTER 2021-08-26 15:00 | Emergency (ER) | payer MEDICARE, SELFPAY ==
[2021-08-26 15:01] VITALS: BP 137/61; PULSE 70; RESP 18; TEMP 36.7; O2SAT 99
[2021-08-26] MEDS: MORPHINE SULFATE (*CRX) 4 MG/ML INJ IV PUSH (15:20)
[2021-08-26 15:37] LABS: Anion Gap 9 mmol/L (8-16); Blood Urea Nitrogen 34 mg/dL (9-20); Calcium 9.1 mg/dL (8.4-10.2); Carbon Dioxide 25 mmol/L (22-30); Chloride 105 mmol/L (98-107); Estimated CRCL calculation 58 ml/min; Estimated Glomerular Filt Rate 46; Glucose 171 mg/dL (65-110); Potassium 4.2 mmol/L (3.4-5.0); Sodium 139 mmol/L (137-145)
[2021-08-26 15:43] LABS: Basophils Absolute Auto 0.1 K/mm3 (0.0-0.1); Basophils Percent Auto 0.6 % (0.2-1.2); Eosinophils Absolute Auto 0.3 K/mm3 (0-0.3); Hematocrit 35.4 % (42.0-52.0); Hemoglobin 11.3 g/dL (14.0-18.0); Immature Granulocyte Absolute 0.03 K/mm3 (0.00-0.031); Immature Granulocyte Percent A 0.4 % (0-0.5); Lymphocytes Absolute Auto 2.05 K/mm3 (0.9-3.2); Lymphocytes Percent Auto 24.9 % (18.3-44.2); Mean Corpuscular HGB Conc 31.9 g/dl (32-36); Mean Corpuscular Hemoglobin 31.4 pg (26-34); Mean Corpuscular Volume 98.3 fl (80-100); Mean Platelet Volume 9.7 fl (7.4-10.4); Monocytes Absolute Auto 0.7 K/mm3 (0.1-0.6); Monocytes Percent Auto 7.9 % (2.6-8.5); Neutrophils Absolute Auto 5.1 K/mm3 (1.3-6.7); Neutrophils Percent Auto 62.2 % (45.5-73.1); Platelet Count Result 269 k/mm3 (150-375); Red Cell Distribution Width 17.4 % (11.5-14.5); White Blood Count 8.2 K/mm3 (4.5-10.0)
[2021-08-26 16:27] LABS: Add Urine Microscopic? YES; Appearance Urine Clear (Clear); Bilirubin Urine Negative (Negative); Blood Urine Negative (Negative); Color Urine Yellow (Yellow); Glucose Urine UA Negative (Negative); Ketones Urine Negative (Negative); Leukocyte Esterase Ur Negative LEU/UL (Negative); Mucus Urine Rare /lpf; Nitrate Urine Negative (Negative); Protein Urine 3+ mg/dL (Negative); RBC Urine 0-2 /hpf (0-2); Specific Grav Ur 1.017 (1.001-1.035); Squamous Epithelial Cell Urine Rare /hpf (Few); Urobilinogen Urine Negative mg/dL (<2.0); WBC Urine 0-3 /hpf
--- NOTE | 2021-08-26 17:12 | ED.BACK ---
HPI - Back Pain/Injury General Chief Complaint: Urogenital-Male Stated Complaint: flank pain History of Present Illness HPI Narrative: Patient is 76-year-old male who presents ER with right-sided back pain. Began a couple days ago when he is trying to get up out of his wheelchair. Hamill a sudden pain. Its been mild. He has been taking Tylenol without relief of pain. Today the pain increased. He is concerned it may be related to a kidney stone. He has had kidney stones in the past. There is no radiation into his abdomen. No nausea or vomiting. No sweats. No urinary frequency urgency. He is without hematuria. Pain is worse with twisting and bending. Related Data Home Medications Medication Instructions Recorded Confirmed allopurinol 300 mg PO BID 04/12/21 04/12/21 amlodipine benzoate 10 mg PO DAILY 04/12/21 04/12/21 clopidogrel 75 mg PO DAILY 04/12/21 04/12/21 doxazosin [Cardura] 2 mg PO DAILY 04/12/21 04/12/21 glipizide mg PO 04/12/21 hydralazine-hydrochlorothiazid cap PO 04/12/21 insulin detemir U-100 [Levemir 100 unit SUBCUT DAILY 04/12/21 04/12/21 U-100 Insulin] isosorbide mononitrate 120 mg PO DAILY 04/12/21 04/12/21 levothyroxine 88 mcg PO DAILY 04/12/21 04/12/21 levothyroxine [Euthyrox] 88 mcg PO DAILY 04/12/21 04/12/21 losartan 25 mg PO DAILY 04/12/21 04/12/21 magnesium oxide 400 mg PO DAILY 04/12/21 04/12/21 metoprolol succinate 25 mg PO DAILY 04/12/21 04/12/21 Allergies Allergy/AdvReac Type Severity Reaction Status Date / Time Rexfuca-JEX-KtJ Reductase AdvReac Cramping Verified 08/26/21 15:10 Inhibitor of the [Bwwkpcg-Irm-Sac Reductase Muscles Inhibitor] Review of Systems Review of Systems: All systems reviewed & are unremarkable except as noted in HPI and below Constitutional: Constitutional: Denies chills, Denies fever(s) and Denies weakness Cardiovascular: Cardiovascular: Denies chest pain and Denies radiating jaw, neck or arm pain Respiratory: Respiratory: Denies cough and Denies dyspnea Genitourinary: Genitourinary: Denies hematuria, Denies dysuria, Denies urinary frequency and Denies urinary incontinence Musculoskeletal: Musculoskeletal: Reports back pain, Denies arthralgias and Reports muscle cramps Neurologic: Denies headache(s), Denies focal weakness and Denies numbness PMFSH Past Medical History Medical History A-fib Chronic kidney disease Coronary artery disease Diabetes Hypertension Hypothyroidism Myocardial infarct, old Obesities, morbid Sleep apnea Surgical History Surgical History History of cholecystectomy History of percutaneous coronary intervention Social History Social History Substance use: never Gender identity (if verbalized by the patient): Male Sexual Orientation (if Verbalized by the Patient): Straight or Heterosexual Exam Narrative: GENERAL: Well-appearing, well-nourished, and in no acute distress. HEAD: Normocephalic, atraumatic. CHEST: Clear to auscultation. No respiratory distress. HEART: Regular rate and rhythm. Normal peripheral pulses. ABDOMEN: Soft, nontender, nondistended. BACK: No reproducible midline tenderness of the thoracic or lumbar spine. There is right-sided paraspinal lumbar tenderness at the level of L2. Palpable spasm. EXTREMITIES: Normal range of motion. No edema. SKIN: Warm, dry, no rash. NEURO: Alert and oriented x3. PSYCH: Normal mood and affect. Course Course Emergency Course: Pain improved with morphine. Discharge home. Vital Signs Vital signs: Vital Signs Temperature 98.0 F 08/26/21 15:01 Pulse Rate 70 08/26/21 15:01 Respiratory Rate 18 08/26/21 15:01 Blood Pressure 137/61 08/26/21 15:01 Pulse Oximetry 99 08/26/21 15:01 Temperature 98.0 F 08/26/21 15:01 Pulse Rate 70 08/26/21 15:01 Respiratory Rate
[2021-08-26 17:59] VITALS: BP 132/68; PULSE 80; RESP 18; O2SAT 99
== END 2021-08-26 18:00 | disposition home or self-care (01) ==
PROVIDERS: Emergency Provider Emergency Medicine; PCP Registered Nurse
DX: M62.830 Muscle spasm of back (principal); I48.91 Unspecified atrial fibrillation; E11.22 Type 2 diabetes mellitus with diabetic chronic kidney disease; I12.9 Hypertensive chronic kidney disease with stage 1 through stage 4 chronic kidney disease, or unspecified chronic kidney disease; N18.9 Chronic kidney disease, unspecified; I25.10 Atherosclerotic heart disease of native coronary artery without angina pectoris; E03.9 Hypothyroidism, unspecified; I25.2 Old myocardial infarction; G47.30 Sleep apnea, unspecified; E66.01 Morbid (severe) obesity due to excess calories; Z68.41 Body mass index [BMI] 40.0-44.9, adult; Z95.5 Presence of coronary angioplasty implant and graft; Z87.442 Personal history of urinary calculi; Z79.4 Long term (current) use of insulin
CPT/HCPCS: 36415; 80048; 81001; 85025; 96374; 99284; J2270

== ENCOUNTER 2022-01-27 09:34 | Inpatient (IN) | payer MEDICARE, SELFPAY ==
[2022-01-27] VITALS (24 sets, daily range): BP systolic 131–153; BP diastolic 59–82; PULSE 60–84; RESP 13–22; TEMP 35.7–36.9; O2SAT 94–98; BMI 37.4
--- NOTE | ~2022-01-27 | XR_ITS ---
EXAMINATION: XR chest 1V portable DATE: 01/27/2022 10:00 INDICATION: Chest pain. Blood pressure issues. TECHNIQUE: frontal view of the chest was obtained. COMPARISON: Chest radiograph and CT dated 05/07/2021 FINDINGS: Mild linear discoid atelectasis/scarring in the lateral left midlung zone. No pulmonary edema, pleura l effusion or pneumothorax. The cardiomediastinal silhouette is normal. Coronary artery stenting. IMPRESSION: 1. Mild discoid atelectasis/scarring in the left midlung zone. Reviewed, dictated and finalized at location B.
--- NOTE | ~2022-01-27 | CT_ITS ---
EXAMINATION: CT brain wo con DATE: 01/27/2022 10:06 INDICATION: Dizziness TECHNIQUE: Computed tomography (CT) of the head was performed without intravenous contrast. Sagittal and coronal reconstructions were performed. The mA was adjusted according to patient size. Iterative reconstruction technique was employed. The dose-length product was 756.67 mGy-cm. COMPARISON: head CT dated 07/26/2021 FINDINGS: No acute intracranial hemorrhage, acute infarction or abnormal extra axial fluid collection. There is mild scattered white matter hypoattenuation consistent with chronic small vessel ischemic disease. S ymmetric prominence of the sulci and subarachnoid spaces overlying the convexities consistent with mi ld age-appropriate diffuse cerebral volume loss. Ventricles are normal and symmetric. No mass/mass ef fect. Persistent mild mucosal thickening in the right sphenoid sinus. Left mastoid effusion. The orbi ts are normal. IMPRESSION: 1. No acute intracranial process. 2. Age-related changes including mild diffuse volume loss and mild scattered white matter hypoattenua tion consistent with chronic small vessel ischemic disease. Reviewed, dictated and finalized at location B. IMPRESSION: 1. No acute intracranial process. 2. Age-related changes including mild diffuse volume loss and mild scattered wh ite matter hypoattenuation consistent with chronic small vessel ischemic diseas e.
--- NOTE | ~2022-01-27 | XR_ITS ---
EXAMINATION: XR hip RT min 2V EXAM DATE: 01/29/2022 10:22 INDICATION: Right hip pain. No known recent injury. TECHNIQUE: Right hip frontal, 'frog leg' projections for interpretation. There is no prior study for comparison. FINDINGS: Smooth right hip femoral head contour, no radiographic evidence of avascular necrosis. The re is moderate right hip primary osteoarthritis. Some vascular calcifications. There are no acute fr actures identified. IMPRESSION: Moderate right hip osteoarthritis. Reviewed, dictated and finalized at location A.
--- NOTE | ~2022-01-27 | XR_ITS ---
EXAMINATION: XR shoulder LT min 2V DATE: 01/30/2022 16:12 INDICATION: Left shoulder pain. TECHNIQUE: 3 views of left shoulder were obtained. COMPARISON: None. FINDINGS: Bone alignment is normal. No fracture. There is mild osteoarthritis of glenohumeral joint a nd severe osteoarthritis of acromioclavicular joint. IMPRESSION: 1. Polyarticular osteoarthritis. Reviewed, dictated and finalized at location A.
--- NOTE | 2022-01-27 09:42 | ECG_ITS ---
Measurements Intervals [place] Rate: 61 P: 33 FL: 286 QRS: 19 QRSD: 129 T: 36 QT: 505 QTc: 510 Interpretive Statements SINUS RHYTHM WITH FIRST DEGREE AV BLOCK MODERATE INTRAVENTRICULAR CONDUCTION DELAY [110+ ms QRS DURATION] MODERATE ST DEPRESSION [0.05+ mV ST DEPRESSION] PROLONGED QT INTERVAL INTERPRETATION BASED ON A DEFAULT AGE OF 40 YEARS COMPARED TO ECG 05/07/2021 18:56:33 NO OBVIOUS CHANGE. BASELINE ECG QUALITY IS IMPROVED AND P WAVES ARE NOW DISCERNED SUSPECT NO CHANGE COMPARED TO TRACING FROM 05/07/2021 Electronically Signed On 01-27-2022 11:19:40 CDT by Jono Davies M.D.
--- NOTE | 2022-01-27 09:42 | PC.NURSE ---
Pt states he is not supposed to take ASA
[2022-01-27 09:50] LABS: Basophils Absolute Auto 0.1 K/mm3 (0.0-0.1); Basophils Percent Auto 1.1 % (0.2-1.2); Eosinophils Absolute Auto 0.4 K/mm3 (0-0.3); Eosinophils Percent Auto 4.3 % (0-4.4); Hematocrit 35.2 % (42.0-52.0); Hemoglobin 11.1 g/dL (14.0-18.0); Immature Granulocyte Absolute 0.04 K/mm3 (0.00-0.031); Immature Granulocyte Percent A 0.5 % (0-0.5); Lymphocytes Percent Auto 32.6 % (18.3-44.2); Mean Corpuscular HGB Conc 31.5 g/dl (32-36); Mean Corpuscular Hemoglobin 32.6 pg (26-34); Mean Corpuscular Volume 103.5 fl (80-100); Mean Platelet Volume 9.8 fl (7.4-10.4); Monocytes Absolute Auto 0.6 K/mm3 (0.1-0.6); Monocytes Percent Auto 6.9 % (2.6-8.5); Neutrophils Absolute Auto 4.5 K/mm3 (1.3-6.7); Neutrophils Percent Auto 54.6 % (45.5-73.1); Platelet Count Result 219 k/mm3 (150-375); Red Cell Distribution Width 14.5 % (11.5-14.5); White Blood Count 8.3 K/mm3 (4.5-10.0)
[2022-01-27 10:05] LABS: Alanine Aminotransferase 14 U/L (4-50); Albumin Level 3.4 g/dL (3.5-5.1); Alkaline Phosphatase 72 U/L (38-126); Anion Gap 7 mmol/L (8-16); Aspartate Amino Transferase 25 U/L (17-59); Bilirubin,Total 0.2 mg/dL (0.2-1.3); Blood Urea Nitrogen 36 mg/dL (9-20); Calcium 8.2 mg/dL (8.4-10.2); Carbon Dioxide 25 mmol/L (22-30); Chloride 107 mmol/L (98-107); Estimated CRCL calculation 39 ml/min; Estimated Glomerular Filt Rate 33; Glucose 191 mg/dL (65-110); Lipase 40 U/L (23-300); Potassium 3.8 mmol/L (3.4-5.0); Sodium 139 mmol/L (137-145)
[2022-01-27 10:25] LABS: Troponin I 0.194 ng/mL (0.000-0.034)
--- NOTE | 2022-01-27 10:31 | ED.CHESTPAIN ---
HPI - Chest Pain General Chief Complaint: Chest Pain Stated Complaint: chest pain Time Seen by Provider: 01/27/22 09:34 Source: RN notes reviewed History of Present Illness HPI narrative: Patient presents emergency department from [facility] via EMS for chest pain and dizziness. Patient states he is coming back from breakfast this morning was on his scooter he states he developed dizziness and felt like he is going to pass out as well as as a feeling of blurred vision in his eyes he states that those symptoms have since improved he also states he developed left-sided chest pain that was described as a pressure and did not radiate he states his chest pain is now resolved he denies any fever chills abdominal pain nausea vomiting. States he felt fine going before going to breakfast. When EMS initially arrived they had a blood pressure of 60s over 30s initially that has improved with IV fluids Related Data Home Medications Medication Instructions Recorded Confirmed allopurinol 900 mg PO DAILY 04/12/21 01/27/22 amlodipine benzoate 10 mg PO DAILY 04/12/21 01/27/22 clopidogrel 75 mg PO DAILY 04/12/21 01/27/22 doxazosin [Cardura] 2 mg PO HS 04/12/21 01/27/22 glipizide 10 mg PO BID 04/12/21 01/27/22 insulin detemir U-100 [Levemir 25 unit SUBCUT 04/12/21 01/27/22 U-100 Insulin] isosorbide mononitrate 120 mg PO DAILY 04/12/21 01/27/22 levothyroxine [Euthyrox] 88 mcg PO QAM 04/12/21 01/27/22 acetaminophen 325 mg PO PRN PRN 01/27/22 01/27/22 calcium carbonate [Antacid 200 mg PO BID 01/27/22 01/27/22 (calcium carbonate)] hydralazine 100 mg PO Q8H 01/27/22 01/27/22 hydrochlorothiazide 25 mg PO DAILY 01/27/22 01/27/22 omega-3 fatty acids-vitamin E 1,000 cap PO BID 01/27/22 01/27/22 [Fish Oil] Allergies Allergy/AdvReac Type Severity Reaction Status Date / Time exenatide [From Byetta] AdvReac Gastrointestinal Verified 01/27/22 14:23 Upset Qlpiftn-GSY-ZbM Reductase AdvReac Cramping Verified 08/26/21 15:10 Inhibitor of the [Sznmffp-Oyt-Isq Reductase Muscles Inhibitor] Review of Systems Review of Systems: Gen.: Denies fevers or chills Eyes: Reports blurred vision that has resolved ENT: Denies congestion Respiratory: Denies shortness of breath or cough CV: See HPI GI: Denies abdominal pain nausea, emesis or diarrhea denies burning, urgency, frequency or hematuria Musculoskeletal: Denies back pain or muscle pain Neuro: reports dizziness Skin: Denies rash Except as documented, all other systems reviewed and negative [facility] Past Medical History Medical History A-fib Chronic kidney disease Coronary artery disease Diabetes Hypertension Hypothyroidism Myocardial infarct, old Obesities, morbid Sleep apnea Surgical History Surgical History History of cholecystectomy History of percutaneous coronary intervention Family History Family History (Updated 01/27/22 @ 15:03 by Richelle Feliz RN) Father Cerebrovascular accident Diabetes mellitus Mother Diabetes mellitus Social History Social History Years smoked: 20 Smoking status: Former smoker Tobacco type: cigars Second hand tobacco smoke exposure: No Alcohol intake: never Substance use: never Substance use type: does not use Gender identity (if verbalized by the patient): Male Sexual Orientation (if Verbalized by the Patient): Straight or Heterosexual Spiritual care concerns: No Exam Narrative: APPEARANCE: No acute distress, nontoxic, resting in bed EYES: EOMI HEENT: Normocephalic, atraumatic, OMM RESPIRATORY: No respiratory distress Clear to auscultation bilaterally with no rhonchi wheezing or rales. CARDIOVASCULAR: Regular rate and rhythm without murmurs rubs or gallops. ABDOMINAL: Soft, nontender, nondistended, no rebound or guarding MUSCULOSKELETAl: Moves
[2022-01-27 10:34] LABS: INR 2.3; Prothrombin Time 24.3 Seconds (11.1-14.7)
[2022-01-27 10:35] LABS: Partial Thromboplastin Time 39.4 SECONDS (22.3-36.8)
--- NOTE | 2022-01-27 10:48 | PC.NURSE ---
attempted to get urine sample from pt. pt unable to urinate. pt refusing straight catheter.
--- NOTE | 2022-01-27 13:06 | PC.NURSE ---
Patient care report called to JACQUIE Fisher in IMU.
[2022-01-27 13:12] LABS: Add Urine Microscopic? YES; Appearance Urine Cloudy (Clear); Bacteria Urine Trace /hpf; Bilirubin Urine Negative (Negative); Blood Urine Negative (Negative); Color Urine Yellow (Yellow); Glucose Urine UA 1+ mg/dL (Negative); Ketones Urine Negative (Negative); Leukocyte Esterase Ur Negative LEU/UL (Negative); Mucus Urine Rare /lpf; Nitrate Urine Negative (Negative); Protein Urine 3+ mg/dL (Negative); Specific Grav Ur 1.018 (1.001-1.035); Squamous Epithelial Cell Urine Occasional /hpf (Few); Urobilinogen Urine Negative mg/dL (<2.0)
--- NOTE | 2022-01-27 13:51 | PM.CNCAR ---
Assessment and Plan Additional Plan 76-year-old man with: Left axillary pain for about an hour earlier this morning which has resolved. The patient does not describe any ischemic type chest pain in my opinion. The axillary pain he says did not resemble previous ischemic pain that he was experiencing prior to his revascularization. Obviously we do not have any records regarding his previous care/ treatment but he states that he has been clinically doing well since his revascularization procedure something like 6-8 years ago. We will follow him with you during his hospitalization and leave any further recommendations regarding ischemia workup depending on the pattern of his troponins. The 1st sample is mildly elevated but again the clinical presentation in my opinion is rather atypical. He is a poor candidate for invasive evaluation today as he is systemically anticoagulated with Coumadin. Would also mention that I do not think his medication list that I see on the chart is accurate since he states he is on Coumadin and that is not listed as 1 of his medications. He also states he is on 1 of the injectable PSK9 inhibitors and that does not appear on the med list either. Jono Davies MD [facility] History of Present Illness History of Present Illness Consult date/time: 01/27/22 13:51 Consult reason: chest pain Reason For Visit: Chest pain/elevated troponin/dizziness Narrative: This is a 76-year-old man who is currently in the emergency room waiting for a bed upstairs he is being admitted to the hospitalist service with the diagnosis of chest pain. He is unknown to me prior to this encounter. The patient states that he was brought to the hospital here this morning because of some pain in the region of the left axilla. He states this was a severe aching pain that began this morning without any particular aggravating factor. He thinks it lasted altogether for about 60-90 minutes before subsiding spontaneously and has not recurred since then. He is now also having some pain in the region of the left posterior neck that he finds rather bothersome and is making him uncomfortable in the emergency room. He is also having pain in the region of the right sciatic nerve distribution which he says is not unusual for him he has a history of spinal stenosis and sciatic pain off and on. He seems to be very uncomfortable because of his neck and sciatic pain at the time of this interview. He offers no other plan complaints currently. This is a gentleman apparently was a history of coronary artery disease as well as history of paroxysmal atrial fibrillation. He receives none of his cardiac care here at [facility]. Apparently was found to have coronary disease and atrial fibrillation sometime between 6 and 8 years ago according to his best estimate where he was evaluated in a hospital up in [facility]. It sounds like he sees cardiologists from the [place] [facility] at that time and since then. He states that he received a total of about 8 stents in his coronary arteries at that time a and told by physician that a good result was obtained any has not had the need for a catheterization again since then. Around the same time he had a couple of episodes of atrial fibrillation he describes being electrically cardioverted and being treated with Coumadin since then. He used to reside up in the area of [facility] in [place] he moved to this area last year. He mainly moved to this area because he had problems with immobility related to a difficulty with his lumbar spine as well as his knees. He states he had severe pain in his knees he was hospitalized up in [place] last year and describes having had infusions of his knees tapped and having severe pain. He also states that he has had some severe spinal stenosis pain as I mentioned above. Because of this he is no longer able to ambulate and has to use a scooter to get around. He has not been experiencing any
--- NOTE | 2022-01-27 14:20 | ADMGEN ---
This patient, Nigel Wang, was admitted to IMU Room 204-01 AT 1350. Patient/family oriented to hospital policies and general routines including ID bracelet, bed and alarms, visiting hours, pain management, procedures, bathroom and other care routines, personal items, smoking policy, room service/diet, and visiting hours. Information on how to activate the Rapid Response Team has been discussed. Patient/Family are encouraged to report perceived risks to care and to ask questions if they do not understand what they are told or what they should do.
[2022-01-27 14:48] LABS: Troponin I 0.199 ng/mL (0.000-0.034)
[2022-01-27 17:04] LABS: Troponin I 0.275 ng/mL (0.000-0.034)
[2022-01-27] MEDS: CYCLOBENZAPRINE HCL 10 MG TABLET PO (20:16)
--- NOTE | 2022-01-27 20:47 | PM.IMHP ---
H&P: HPI History of Present Illness Date/Time: Patient was placed observation status for expected length of stay less than 23 hours for management, will plan to re-evaluate tomorrow for improvement. 01/27/22 20:47 Chief Complaint: Atypical chest discomfort Narrative: Mr. Wang there is a 76-year-old gentleman who presented emergency room with complaints of atypical chest discomfort. Patient states he ate breakfast at the assisted living establishment he resides that and went back to his room and started to feel ?funny?. Patient states that his blood pressure was taken by the nursing staff at the [facility] and his blood pressure was quite low. Patient states he had pain in his left neck area that radiated down to his left axilla area. Patient denies any associated shortness of breath, nausea, vomiting, or diaphoresis. Patient states he has had up to 10 stents previously performed at [facility] in [facility], but recently moved down here and has a new clinical trial assistant to he follows up with at [facility]. Patient states this is not the typical pain he has had in the past when he has had chest discomfort. Patient states that he cannot recall having discomfort like this when he did have his myocardial infarction. Upon evaluation in emergency room patient had a mild elevation in his 1st troponin it was decided to monitor patient overnight and have Cardiology to evaluate and treat. Patient has a known history of coronary artery disease status post multivessel stent placement, atrial fibrillation status post cardioversion x2, diabetes mellitus, hypertension, dyslipidemia, and chronic kidney disease. Review of Systems Review of Systems: A 12 point review of systems was completed patient all pertinent positive and negative per HPI the remainder are unremarkable. [facility] Past Medical History Medical History A-fib Chronic kidney disease Coronary artery disease Diabetes Hypertension Hypothyroidism Myocardial infarct, old Obesities, morbid Sleep apnea Surgical History Surgical History History of cholecystectomy History of percutaneous coronary intervention Family History Family History (Updated 01/27/22 @ 15:03 by iRchelle Feliz RN) Father Cerebrovascular accident Diabetes mellitus Mother Diabetes mellitus Social History Social History Years smoked: 20 Smoking status: Former smoker Tobacco type: cigars Second hand tobacco smoke exposure: No Alcohol intake: never Substance use: never Substance use type: does not use Gender identity (if verbalized by the patient): Male Sexual Orientation (if Verbalized by the Patient): Straight or Heterosexual Spiritual care concerns: No Meds Home Medications and Allergies Home Medications Medication Instructions Recorded Confirmed Type clopidogrel 75 mg PO DAILY 04/12/21 01/27/22 History doxazosin [Cardura] 2 mg PO HS 04/12/21 01/27/22 History insulin detemir U-100 [Levemir 25 unit SUBCUT HS 04/12/21 01/27/22 History U-100 Insulin] isosorbide mononitrate 120 mg PO DAILY 04/12/21 01/27/22 History acetaminophen 325 mg PO PRN PRN 01/27/22 01/27/22 History alirocumab [Praluent Pen] 150 mg SUBCUT [id number] 01/27/22 01/27/22 History amiodarone 200 mg PO HS 01/27/22 01/27/22 History amlodipine 5 mg PO DAILY 01/27/22 01/27/22 History ascorbate calcium (vitamin C) 500 mg PO DAILY 01/27/22 01/27/22 History calcium carbonate [Antacid 200 mg PO BID 01/27/22 01/27/22 History (calcium carbonate)] cholecalciferol (vitamin D3) 150 mcg PO DAILY 01/27/22 01/27/22 History cyclobenzaprine 10 mg PO BID 01/27/22 01/27/22 History hydralazine 100 mg PO TID 01/27/22 01/27/22 History hydrochlorothiazide 25 mg PO DAILY 01/27/22 01/27/22 History insulin aspart U-100 [Novolog 25 unit SUBCUT TIDWM 01/27/22 01/27/22 His
[2022-01-27 20:49] LABS: Glucose Point of Care 190 mg/dl (65-105)
[2022-01-27] MEDS: AMIODARONE HCL 200 MG TABLET PO (21:53)
[2022-01-27] MEDS: VITAMIN E 1,000 UNIT CAPSULE 1000 UNIT PO (21:54)
[2022-01-27] MEDS: DOXAZOSIN MESYLATE 2 MG TABLET PO (21:54)
[2022-01-27] MEDS: OMEGA 3 POLYUNSAT FATTY ACIDS 1 GM CAP PO (21:54)
[2022-01-27] MEDS: INSULIN GLARGINE (*BKC) 100 UNITS/ML 25 UNITS SUB-Q (22:53)
[2022-01-27 23:33] LABS: Troponin I 0.387 ng/mL (0.000-0.034)
[2022-01-28] VITALS (13 sets, daily range): BP systolic 125–162; BP diastolic 48–69; PULSE 61–80; RESP 16–22; TEMP 36.2–37.1; O2SAT 95–98
[2022-01-28 05:10] LABS: Basophils Absolute Auto 0.1 K/mm3 (0.0-0.1); Basophils Percent Auto 0.7 % (0.2-1.2); Eosinophils Absolute Auto 0.3 K/mm3 (0-0.3); Eosinophils Percent Auto 3.6 % (0-4.4); Hematocrit 36.2 % (42.0-52.0); Hemoglobin 11.3 g/dL (14.0-18.0); Immature Granulocyte Absolute 0.03 K/mm3 (0.00-0.031); Immature Granulocyte Percent A 0.4 % (0-0.5); Lymphocytes Absolute Auto 2.03 K/mm3 (0.9-3.2); Lymphocytes Percent Auto 25.3 % (18.3-44.2); Mean Corpuscular HGB Conc 31.2 g/dl (32-36); Mean Corpuscular Hemoglobin 32.1 pg (26-34); Mean Corpuscular Volume 102.8 fl (80-100); Mean Platelet Volume 9.8 fl (7.4-10.4); Monocytes Absolute Auto 0.7 K/mm3 (0.1-0.6); Monocytes Percent Auto 8.5 % (2.6-8.5); Neutrophils Absolute Auto 4.9 K/mm3 (1.3-6.7); Neutrophils Percent Auto 61.5 % (45.5-73.1); Platelet Count Result 221 k/mm3 (150-375); Red Blood Count 3.52 M/mm3 (4.6-6.20); Red Cell Distribution Width 14.2 % (11.5-14.5)
[2022-01-28 05:20] LABS: INR 2.3; Prothrombin Time 24.2 Seconds (11.1-14.7)
[2022-01-28 05:23] LABS: Alanine Aminotransferase 14 U/L (4-50); Albumin Level 3.4 g/dL (3.5-5.1); Alkaline Phosphatase 74 U/L (38-126); Anion Gap 6 mmol/L (8-16); Aspartate Amino Transferase 24 U/L (17-59); Bilirubin,Total 0.3 mg/dL (0.2-1.3); Blood Urea Nitrogen 32 mg/dL (9-20); Calcium 8.4 mg/dL (8.4-10.2); Carbon Dioxide 27 mmol/L (22-30); Chloride 106 mmol/L (98-107); Estimated CRCL calculation 43 ml/min; Estimated Glomerular Filt Rate 37; Glucose 181 mg/dL (65-110); Sodium 139 mmol/L (137-145)
[2022-01-28 05:37] LABS: Troponin I 0.296 ng/mL (0.000-0.034)
[2022-01-28] MEDS: LEVOTHYROXINE SODIUM 112 MCG TABLET PO (06:08)
[2022-01-28 08:36] LABS: Glucose Point of Care 153 mg/dl (65-105)
[2022-01-28] MEDS: CHOLECALCIFEROL 1,000 UNITS TABLET 6000 UNITS PO (09:16)
[2022-01-28] MEDS: ASCORBIC ACID 500 MG TABLET PO (09:17)
[2022-01-28] MEDS: hydrALAZINE HCL 50 MG TABLET 100 MG PO ×2 (09:17→16:17)
[2022-01-28] MEDS: CYCLOBENZAPRINE HCL 10 MG TABLET PO ×2 (09:17→16:16)
[2022-01-28] MEDS: CALCIUM CARBONATE (TUMS) 500 MG (200 MG ELEMENTAL) PO ×2 (09:17→16:16)
[2022-01-28] MEDS: SPIRONOLACTONE 25 MG TABLET PO (09:18)
[2022-01-28] MEDS: CLOPIDOGREL BISULFATE 75 MG TABLET PO (09:18)
[2022-01-28] MEDS: MULTIVITS W-FE,MIN CHEWABLE TABLET 2 TABLET PO (09:18)
[2022-01-28] MEDS: ISOSORBIDE MONONITRATE 60 MG TAB.ER.24H 120 MG PO (09:18)
[2022-01-28] MEDS: METOPROLOL SUCCINATE EXT REL 25 MG TABCR PO (09:19)
[2022-01-28] MEDS: amLODIPine BESYLATE 5 MG TABLET PO (09:19)
[2022-01-28] MEDS: PANTOPRAZOLE 40 MG TABLET PO (09:19)
[2022-01-28] MEDS: hydroCHLOROthiazide 25 MG TABLET PO (09:20)
[2022-01-28] MEDS: LOSARTAN POTASSIUM 25 MG TABLET PO (09:20)
[2022-01-28] MEDS: MAGNESIUM OXIDE 400 MG TABLET PO ×2 (09:20→16:20)
[2022-01-28] MEDS: ACETAMINOPHEN 325 MG TABLET PO ×2 (09:23→19:59)
[2022-01-28 11:52] LABS: Glucose Point of Care 178 mg/dl (65-105)
--- NOTE | 2022-01-28 12:51 | PM.IMPN ---
Progress Note: A&P Assessment and Plan (1) Chest pain: Code(s): R07.9 - Chest pain, unspecified Status: Acute Assessment and Plan: Likely related to left-sided shoulder and musculoskeletal pain (2) Elevated troponin: Code(s): R77.8 - Other specified abnormalities of plasma proteins Status: Acute Assessment and Plan: Per cardiology, no workup needed. No substernal chest pain (3) Acute renal insufficiency: Code(s): N28.9 - Disorder of kidney and ureter, unspecified Status: Acute Assessment and Plan: Baseline creatinine is between 1.5 and 1.6. Currently he is at 1.8. Monitor. Possible new baseline. Subjective Date/time seen: 01/28/22 12:51 Still complaining of left shoulder pain and right hip and right low back pain. No substernal chest pain Review of Systems Review of Systems: All systems reviewed & are unremarkable except as noted in HPI and below Exam Narrative: Constitutional: Patient is well-nourished in no acute distress. Patient is alert and oriented x3 HEENT: Moist mucous membranes. No scleral icterus. No lymphadenopathy. Neck: No carotid bruits noted no JVD noted Lungs: Lung sounds are clear to auscultation bilaterally. No accessory muscle use. No rhonchi, rales, or wheezes noted. Cardiovascular: Apical pulse is regular rate and rhythm. S1-S2 noted, no S3 or S4 noted. 2/6 systolic murmur noted Abdomen: Soft, round, and nontender. No palpable masses. Extremities: No edema. Nontender. Skin: No rashes or lesions. Warm and dry. Skin is intact. Neurological: No focal neurological deficits. Cranial nerves II-XII grossly intact. Psychiatric: Cooperative, appropriate mood, and affect Objective Data Vital Signs Vital Signs: Vital Signs - 24 hr 01/27/22 14:26 01/27/22 15:58 01/27/22 16:00 Temperature 96.5 F L 96.3 F L Pulse Rate 69 70 64 Respiratory Rate 22 H 22 H Blood Pressure 153/82 H 147/72 H Pulse Oximetry 97 97 01/27/22 17:56 01/27/22 19:37 01/27/22 20:00 Temperature 98.5 F Pulse Rate 60 71 71 Respiratory Rate 18 18 Blood Pressure 151/71 H Pulse Oximetry 94 94 01/27/22 21:53 01/27/22 22:00 01/27/22 23:22 Temperature 98 F Pulse Rate 84 62 70 Respiratory Rate 18 Blood Pressure 150/66 H Pulse Oximetry 96 01/27/22 23:57 01/28/22 00:00 01/28/22 02:00 Temperature Pulse Rate 70 75 67 Respiratory Rate 18 Blood Pressure Pulse Oximetry 96 01/28/22 04:00 01/28/22 06:00 01/28/22 08:00 Temperature 98.7 F Pulse Rate 67 61 70 Respiratory Rate 16 Blood Pressure 125/48 L Pulse Oximetry 95 01/28/22 08:11 01/28/22 08:31 01/28/22 09:19 Temperature 98.4 F Pulse Rate 69 80 Respiratory Rate 22 H Blood Pressure 162/65 H Pulse Oximetry 95 98 01/28/22 10:00 01/28/22 12:00 01/28/22 12:36 Temperature 98.3 F Pulse Rate 80 69 67 Respiratory Rate 22 H Blood Pressure 138/64 Pulse Oximetry 96 Intake/Output Intake/Output: Intake & Output 01/25/22 01/26/22 01/27/22 01/28/22 23:59 23:59 23:59 23:59 Intake Total 690 640 Output Total 1170 1580 Balance -480 -940 Meds/Results Medications: Active Medications Generic Name Dose Route Start Last Admin Trade Name Freq PRN Reason Stop Dose Admin Acetaminophen 325 - 650 mg 01/27/22 20:46 01/28/22 09:23 Acetaminophen 325 Mg Tablet PO 650 mg Q6H PRN Administration Pain 1-3 Amiodarone HCl 200 mg 01/27/22 21:00 01/27/22 21:53 Amiodarone Hcl 200 Mg Tablet PO 200 mg HS ALBERTO Administration Amlodipine Besylate 5 mg 01/28/22 09:00 01/28/22 09:19 Amlodipine Besylate 5 Mg Tablet PO 5 mg DAILY ALBERTO Administration Ascorbic Acid 500 mg 01/28/22 09:00 01/28/22 09:17 Ascorbic Acid 500 Mg Tablet PO 500 mg DAILY ALBERTO Administration Calcium Carbonate 200 mg 01/28/22 09:00 01/28/22 09:17 Calcium Carbonate (Tums) 500 Mg (200 Mg Elemental) PO 200 mg BID ALBERTO Admi
--- NOTE | 2022-01-28 13:09 | PM.PNCARD ---
Progress Note: A&P Additional Plan Elevated trop, with no significant delta and no symptoms consistent with ACS, likely related to JOSE F/CKD. Left shoulder pain is muscloskeletal, precipitated with movement. He had Hx of CAD and prior PCI in OSH. HTHN, DM and dyslipidemia on PCSk9 inhibtor. Hx of AF on amiodarone and wearfarin Cont on Plavix, warfarin, statin, B-matt, amlodipine, amiodarone, losartan and aldactone Invasive cardiac work up can be considered if trop rises more significantly or patient has clinical or EKG signs of ACS. Discussed this option with patient and he agrees to plan. F/U renal panel Subjective Date/time seen: 01/28/22 13:09 Interval history: no acute events persistent left shoulder pain and rt hip pain, worse with movement, cramp like, moderate in severity Review of Systems Review of Systems: All systems reviewed & are unremarkable except as noted in HPI and below Exam Const: General: comfortable and no acute distress Other: Able to lie flat Resp: Auscultation: clear to auscultation bilaterally and lung sounds not diminished Other: No chest wall tenderness Cardio: Rate: regular rate Rhythm: regular rhythm Heart sounds: no gallops, no murmurs and no rubs GI: GI Palp: Yes Soft to palpation and No Tenderness to palpation present (GI) Auscultation: normal bowel sounds Skin: General skin exam: normal color, rashes and/or lesions noted and no erythema Other: Warm Objective Data Vital Signs Vital Signs: Vital Signs - 24 hr 01/27/22 14:26 01/27/22 15:58 01/27/22 16:00 Temperature 35.8 C L 35.7 C L Pulse Rate 69 70 64 Respiratory Rate 22 H 22 H Blood Pressure 153/82 H 147/72 H Pulse Oximetry 97 97 01/27/22 17:56 01/27/22 19:37 01/27/22 20:00 Temperature 36.9 C Pulse Rate 60 71 71 Respiratory Rate 18 18 Blood Pressure 151/71 H Pulse Oximetry 94 94 01/27/22 21:53 01/27/22 22:00 01/27/22 23:22 Temperature 36.6 C Pulse Rate 84 62 70 Respiratory Rate 18 Blood Pressure 150/66 H Pulse Oximetry 96 01/27/22 23:57 01/28/22 00:00 01/28/22 02:00 Temperature Pulse Rate 70 75 67 Respiratory Rate 18 Blood Pressure Pulse Oximetry 96 01/28/22 04:00 01/28/22 06:00 01/28/22 08:00 Temperature 37.1 C Pulse Rate 67 61 70 Respiratory Rate 16 Blood Pressure 125/48 L Pulse Oximetry 95 01/28/22 08:11 01/28/22 08:31 01/28/22 09:19 Temperature 36.9 C Pulse Rate 69 80 Respiratory Rate 22 H Blood Pressure 162/65 H Pulse Oximetry 95 98 01/28/22 10:00 01/28/22 12:00 01/28/22 12:36 Temperature 36.8 C Pulse Rate 80 69 67 Respiratory Rate 22 H Blood Pressure 138/64 Pulse Oximetry 96 Intake/Output Intake/Output: Intake & Output 01/25/22 01/26/22 01/27/22 01/28/22 23:59 23:59 23:59 23:59 Intake Total 690 640 Output Total 1170 1580 Balance -480 -940 Meds/Results Medications: Active Medications Generic Name Dose Route Start Last Admin Trade Name Freq PRN Reason Stop Dose Admin Acetaminophen 325 - 650 mg 01/27/22 20:46 01/28/22 09:23 Acetaminophen 325 Mg Tablet PO 650 mg Q6H PRN Administration Pain 1-3 Amiodarone HCl 200 mg 01/27/22 21:00 01/27/22 21:53 Amiodarone Hcl 200 Mg Tablet PO 200 mg HS ALBERTO Administration Amlodipine Besylate 5 mg 01/28/22 09:00 01/28/22 09:19 Amlodipine Besylate 5 Mg Tablet PO 5 mg DAILY ALBERTO Administration Ascorbic Acid 500 mg 01/28/22 09:00 01/28/22 09:17 Ascorbic Acid 500 Mg Tablet PO 500 mg DAILY ALBERTO Administration Calcium Carbonate 200 mg 01/28/22 09:00 01/28/22 09:17 Calcium Carbonate (Tums) 500 Mg (200 Mg Elemental) PO 200 mg BID ALBERTO Administration Clopidogrel Bisulfate 75 mg 01/28/22 09:00 01/28/22 09:18 Clopidogrel Bisulfate 75 Mg Tablet PO 75 mg DAILY ALBERTO Administration Cyclobenzaprine HCl 10 mg 01/28/22 09:00 01/28/22 09:17 Cyclobenzaprine Hcl 10 Mg Tablet PO 10 mg
[2022-01-28 13:29] LABS: Prothrombin Time 22.2 Seconds (11.1-14.7)
--- NOTE | 2022-01-28 13:48 | PC.NURSE ---
This patient, Nigel Wang, was received from IMU on 01/28/22 at 1348. Patient/family oriented to unit policies and routines
--- NOTE | 2022-01-28 14:00 | PC.NURSE ---
This patient, Nigel Wang, was transferred to [[id number] ] on 01/28/22 at 1344. Personal belongings sent with patient. Report given to [ Natalia]. Appropriate documentation sent with patient.
[2022-01-28 16:25] LABS: Glucose Point of Care 171 mg/dl (65-105)
[2022-01-28] MEDS: INSULIN ASPART (*BKC) 100 UNITS/ML 25 UNITS SUB-Q (16:26)
[2022-01-28 19:33] LABS: Glucose Point of Care 164 mg/dl (65-105)
[2022-01-28] MEDS: VITAMIN E 1,000 UNIT CAPSULE 1000 UNIT PO (20:13)
[2022-01-28] MEDS: AMIODARONE HCL 200 MG TABLET PO (20:13)
[2022-01-28] MEDS: DOXAZOSIN MESYLATE 2 MG TABLET PO (20:13)
[2022-01-28] MEDS: OMEGA 3 POLYUNSAT FATTY ACIDS 1 GM CAP PO (20:13)
[2022-01-28] MEDS: INSULIN GLARGINE (*BKC) 100 UNITS/ML 25 UNITS SUB-Q (20:14)
[2022-01-28] MEDS: WARFARIN (*PBKC) 3 MG TABLET 6 MG PO (20:24)
[2022-01-29] MEDS: ACETAMINOPHEN 325 MG TABLET PO ×2 (03:55→20:43)
[2022-01-29] MEDS: LEVOTHYROXINE SODIUM 112 MCG TABLET PO (05:19)
[2022-01-29 05:34] LABS: INR 1.7; Prothrombin Time 19.3 Seconds (11.1-14.7)
[2022-01-29 06:40] VITALS: BP 151/66; PULSE 65; RESP 18; TEMP 36.4; O2SAT 97
[2022-01-29 07:39] LABS: Glucose Point of Care 108 mg/dl (65-105)
[2022-01-29] MEDS: LOSARTAN POTASSIUM 25 MG TABLET PO (08:24)
[2022-01-29] MEDS: ASCORBIC ACID 500 MG TABLET PO (08:24)
[2022-01-29] MEDS: hydrALAZINE HCL 50 MG TABLET 100 MG PO ×2 (08:25→17:02)
[2022-01-29] MEDS: ISOSORBIDE MONONITRATE 60 MG TAB.ER.24H 120 MG PO (08:25)
[2022-01-29] MEDS: CHOLECALCIFEROL 1,000 UNITS TABLET 6000 UNITS PO (08:25)
[2022-01-29 08:26] VITALS: PULSE 70
[2022-01-29] MEDS: CLOPIDOGREL BISULFATE 75 MG TABLET PO (08:26)
[2022-01-29] MEDS: METOPROLOL SUCCINATE EXT REL 25 MG TABCR PO (08:26)
[2022-01-29] MEDS: SPIRONOLACTONE 25 MG TABLET PO (08:26)
[2022-01-29] MEDS: hydroCHLOROthiazide 25 MG TABLET PO (08:26)
[2022-01-29] MEDS: PANTOPRAZOLE 40 MG TABLET PO (08:26)
[2022-01-29] MEDS: CALCIUM CARBONATE (TUMS) 500 MG (200 MG ELEMENTAL) PO ×2 (08:26→17:02)
[2022-01-29] MEDS: CYCLOBENZAPRINE HCL 10 MG TABLET PO ×2 (08:26→17:02)
[2022-01-29] MEDS: MAGNESIUM OXIDE 400 MG TABLET PO ×2 (08:26→17:02)
[2022-01-29] MEDS: MULTIVITS W-FE,MIN CHEWABLE TABLET 2 TABLET PO (08:26)
[2022-01-29] MEDS: amLODIPine BESYLATE 5 MG TABLET PO (08:27)
--- NOTE | 2022-01-29 09:42 | PM.IMPN ---
Progress Note: A&P Assessment and Plan (1) Chest pain: Code(s): R07.9 - Chest pain, unspecified Status: Acute Assessment and Plan: Likely related to left-sided shoulder and musculoskeletal pain. nothing from a cardiac standpoint needs to be done. Monitor. (2) Elevated troponin: Code(s): R77.8 - Other specified abnormalities of plasma proteins Status: Acute Assessment and Plan: Per cardiology, no workup needed. No substernal chest pain (3) Acute renal insufficiency: Code(s): N28.9 - Disorder of kidney and ureter, unspecified Status: Acute Assessment and Plan: Baseline creatinine is between 1.5 and 1.6. Currently he is at 1.8. Monitor. Possible new baseline. (4) A-fib: Code(s): I48.91 - Unspecified atrial fibrillation Status: Inactive Assessment and Plan: Continue anticoagulation with Coumadin. Currently he is not in RVR. Continue other cardiac medications. INR is 1.7. But he did miss 1 day of his Coumadin. Will likely return tomorrow. Repeat INR in the morning. (5) Hypertension: Code(s): I10 - Essential (primary) hypertension Status: Inactive Assessment and Plan: Continue home meds. Monitor (6) Diabetes: Code(s): E11.9 - Type 2 diabetes mellitus without complications Status: Inactive Assessment and Plan: Continue with insulin. Monitor blood sugars. (7) Coronary artery disease: Code(s): I25.10 - Atherosclerotic heart disease of [place] coronary artery without angina pectoris Status: Inactive (8) Chronic kidney disease: Code(s): N18.9 - Chronic kidney disease, unspecified Status: Inactive Assessment and Plan: Baseline appears to be around a creatinine of 1.6. Will repeat creatinine the morning. Questionable new baseline. (9) Hip pain: Code(s): M25.559 - Pain in unspecified hip Status: Acute Assessment and Plan: Will get an x-ray. Continue with PT OT. Patient is from assisted living facility but he believes he will likely need SNF placement will have case management look into this tomorrow. Subjective Date/time seen: 01/29/22 09:42 The patient reports shoulder pain and muscle spasms are improved. Still complaining of moderate to severe right hip and right low back pain. denies any falls or traumas. Review of Systems Review of Systems: All systems reviewed & are unremarkable except as noted in HPI and below Exam Narrative: Constitutional: Patient is well-nourished in no acute distress. Patient is alert and oriented x3 HEENT: Moist mucous membranes. No scleral icterus. No lymphadenopathy. Neck: No carotid bruits noted no JVD noted Lungs: Lung sounds are clear to auscultation bilaterally. No accessory muscle use. No rhonchi, rales, or wheezes noted. Cardiovascular: Apical pulse is regular rate and rhythm. S1-S2 noted, no S3 or S4 noted. 2/6 systolic murmur noted Abdomen: Soft, round, and nontender. No palpable masses. Extremities: No edema. Nontender. Skin: No rashes or lesions. Warm and dry. Skin is intact. Neurological: No focal neurological deficits. Cranial nerves II-XII grossly intact. Psychiatric: Cooperative, appropriate mood, and affect Objective Data Vital Signs Vital Signs: Vital Signs - 24 hr 01/28/22 10:00 01/28/22 12:00 01/28/22 12:36 Temperature 98.3 F Pulse Rate 80 69 67 Respiratory Rate 22 H Blood Pressure 138/64 Pulse Oximetry 96 01/28/22 20:13 01/28/22 22:00 01/29/22 06:40 Temperature 97.2 F L 97.5 F L Pulse Rate 63 63 65 Respiratory Rate 18 18 Blood Pressure 159/69 H 151/66 H Pulse Oximetry 96 97 01/29/22 08:26 Temperature Pulse Rate 70 Respiratory Rate Blood Pressure Pulse Oximetry Intake/Output Intake/Output: Intake & Output 01/26/22 01/27/22 01/28/22 01/29/22 23:59 23:59 23:59 23:59 Intake Total 690 1080 1040 Output Total 1170 2030 1100 Balance -480 -
[2022-01-29 11:40] LABS: Glucose Point of Care 149 mg/dl (65-105)
--- NOTE | 2022-01-29 13:34 | PM.PNCARD ---
Progress Note: A&P Additional Plan Elevated trop, with no significant delta and no symptoms consistent with ACS, likely related to JOSE F/CKD. Left shoulder pain is muscloskeletal, precipitated with movement. He had Hx of CAD and prior PCI in OSH. HTHN, DM and dyslipidemia on PCSk9 inhibtor. Hx of AF on amiodarone and wearfarin Cont on Plavix, warfarin, statin, B-matt, amlodipine, amiodarone, losartan and aldactone Invasive cardiac work up can be considered if trop rises more significantly or patient has clinical or EKG signs of ACS. Subjective Date/time seen: 01/29/22 13:34 Interval history: no acute events Review of Systems Review of Systems: All systems reviewed & are unremarkable except as noted in HPI and below Exam Const: General: comfortable and no acute distress Other: Able to lie flat HENMT: Mouth: Yes moist mucous membranes Eyes: Sclera: sclerae normal Neck: Neck: no JVD Other: no carotid bruits are audible Resp: Effort & Inspection: normal respiratory effort Auscultation: clear to auscultation bilaterally and lung sounds not diminished Other: No chest wall tenderness Cardio: Rate: regular rate Rhythm: regular rhythm Heart sounds: no gallops, no murmurs and no rubs Other: soft grade 2 systolic murmur audible at the left sternal border no diastolic murmur no gallop GI: Auscultation: normal bowel sounds Skin: General skin exam: normal color, rashes and/or lesions noted and no erythema Other: Warm Neuro: Cognition (Neuro): normal cognition Extrem: Other: mild to moderate chronic appearing edema adequate distal pulses Objective Data Vital Signs Vital Signs: Vital Signs - 24 hr 01/28/22 20:13 01/28/22 22:00 01/29/22 06:40 Temperature 36.2 C L 36.4 C L Pulse Rate 63 63 65 Respiratory Rate 18 18 Blood Pressure 159/69 H 151/66 H Pulse Oximetry 96 97 01/29/22 08:26 Temperature Pulse Rate 70 Respiratory Rate Blood Pressure Pulse Oximetry Intake/Output Intake/Output: Intake & Output 01/26/22 01/27/22 01/28/22 01/29/22 23:59 23:59 23:59 23:59 Intake Total 690 1080 1280 Output Total 1170 2030 1100 Balance -480 -950 180 Meds/Results Medications: Active Medications Generic Name Dose Route Start Last Admin Trade Name Aakash PRN Reason Stop Dose Admin Acetaminophen 325 - 650 mg 01/27/22 20:46 01/29/22 03:55 Acetaminophen 325 Mg Tablet PO 650 mg Q6H PRN Administration Pain 1-3 Amiodarone HCl 200 mg 01/27/22 21:00 01/28/22 20:13 Amiodarone Hcl 200 Mg Tablet PO 200 mg HS ALBERTO Administration Amlodipine Besylate 5 mg 01/28/22 09:00 01/29/22 08:27 Amlodipine Besylate 5 Mg Tablet PO 5 mg DAILY ALBERTO Administration Ascorbic Acid 500 mg 01/28/22 09:00 01/29/22 08:24 Ascorbic Acid 500 Mg Tablet PO 500 mg DAILY ALBERTO Administration Calcium Carbonate 200 mg 01/28/22 09:00 01/29/22 08:26 Calcium Carbonate (Tums) 500 Mg (200 Mg Elemental) PO 200 mg BID ALBERTO Administration Clopidogrel Bisulfate 75 mg 01/28/22 09:00 01/29/22 08:26 Clopidogrel Bisulfate 75 Mg Tablet PO 75 mg DAILY ALBERTO Administration Cyclobenzaprine HCl 10 mg 01/28/22 09:00 01/29/22 08:26 Cyclobenzaprine Hcl 10 Mg Tablet PO 10 mg BID ALBERTO Administration Doxazosin Mesylate 2 mg 01/27/22 21:00 01/28/22 20:13 Doxazosin Mesylate 2 Mg Tablet PO 2 mg HS ALBERTO Administration Fish Oil 1 gm 01/27/22 21:00 01/28/22 20:13 [place] 3 Polyunsat Fatty Acids 1 Gm Cap PO 1 gm HS ALBERTO Administration Hydralazine HCl 100 mg 01/28/22 17:00 01/29/22 08:25 Hydralazine Hcl 50 Mg Tablet PO 100 mg BID ALBERTO Administration Hydrochlorothiazide 25 mg 01/28/22 09:00 01/29/22 08:26 Hydrochlorothiazide 25 Mg Tablet PO 25 mg DAILY ALBERTO Administration Insulin Aspart 25 units 01/28/22 08:00 01/29/22 11:46 Insulin Aspart (*Bkc) 100 Units/Ml SUB-Q Not Given TIDWM [facility] Insulin Glargine 25 units
[2022-01-29 16:00] VITALS: BP 118/64; PULSE 70; RESP 18; TEMP 37.2; O2SAT 97
[2022-01-29 16:39] LABS: Glucose Point of Care 144 mg/dl (65-105)
[2022-01-29 20:00] VITALS: PULSE 80; RESP 18; O2SAT 97
[2022-01-29 20:24] LABS: Glucose Point of Care 175 mg/dl (65-105)
[2022-01-29] MEDS: INSULIN GLARGINE (*BKC) 100 UNITS/ML 25 UNITS SUB-Q (20:30)
[2022-01-29 20:38] VITALS: PULSE 80
[2022-01-29] MEDS: WARFARIN (*PBKC) 3 MG TABLET 6 MG PO (20:38)
[2022-01-29] MEDS: AMIODARONE HCL 200 MG TABLET PO (20:38)
[2022-01-29] MEDS: OMEGA 3 POLYUNSAT FATTY ACIDS 1 GM CAP PO (20:39)
[2022-01-29] MEDS: DOXAZOSIN MESYLATE 2 MG TABLET PO (20:39)
[2022-01-29] MEDS: VITAMIN E 1,000 UNIT CAPSULE 1000 UNIT PO (20:39)
[2022-01-29 22:00] VITALS: BP 158/62; PULSE 69; RESP 20; TEMP 36.1; O2SAT 98
[2022-01-30 05:18] LABS: INR 1.6; Prothrombin Time 18.2 Seconds (11.1-14.7)
[2022-01-30 05:25] LABS: Anion Gap 6 mmol/L (8-16); Blood Urea Nitrogen 33 mg/dL (9-20); Calcium 8.5 mg/dL (8.4-10.2); Carbon Dioxide 27 mmol/L (22-30); Chloride 103 mmol/L (98-107); Estimated CRCL calculation 40 ml/min; Estimated Glomerular Filt Rate 35; Glucose 140 mg/dL (65-110); Potassium 3.5 mmol/L (3.4-5.0); Sodium 136 mmol/L (137-145)
[2022-01-30] MEDS: LEVOTHYROXINE SODIUM 112 MCG TABLET PO (05:57)
[2022-01-30 06:00] VITALS: BP 150/65; PULSE 63; RESP 20; TEMP 36.3; O2SAT 98
[2022-01-30 07:37] LABS: Glucose Point of Care 168 mg/dl (65-105)
[2022-01-30] MEDS: CALCIUM CARBONATE (TUMS) 500 MG (200 MG ELEMENTAL) PO ×2 (08:01→16:10)
[2022-01-30 08:02] VITALS: PULSE 67
[2022-01-30] MEDS: hydroCHLOROthiazide 25 MG TABLET PO (08:02)
[2022-01-30] MEDS: hydrALAZINE HCL 50 MG TABLET 100 MG PO ×2 (08:02→16:10)
[2022-01-30] MEDS: MAGNESIUM OXIDE 400 MG TABLET PO ×2 (08:02→16:10)
[2022-01-30] MEDS: ISOSORBIDE MONONITRATE 60 MG TAB.ER.24H 120 MG PO (08:02)
[2022-01-30] MEDS: MULTIVITS W-FE,MIN CHEWABLE TABLET 2 TABLET PO (08:02)
[2022-01-30] MEDS: LOSARTAN POTASSIUM 25 MG TABLET PO (08:02)
[2022-01-30] MEDS: CYCLOBENZAPRINE HCL 10 MG TABLET PO ×2 (08:02→16:10)
[2022-01-30] MEDS: METOPROLOL SUCCINATE EXT REL 25 MG TABCR PO (08:02)
[2022-01-30] MEDS: SPIRONOLACTONE 25 MG TABLET PO (08:02)
[2022-01-30] MEDS: PANTOPRAZOLE 40 MG TABLET PO (08:02)
[2022-01-30] MEDS: ASCORBIC ACID 500 MG TABLET PO (08:03)
[2022-01-30] MEDS: amLODIPine BESYLATE 5 MG TABLET PO (08:03)
[2022-01-30] MEDS: CHOLECALCIFEROL 1,000 UNITS TABLET 6000 UNITS PO (08:03)
[2022-01-30] MEDS: CLOPIDOGREL BISULFATE 75 MG TABLET PO (08:03)
[2022-01-30] MEDS: ACETAMINOPHEN 325 MG TABLET PO ×2 (08:04→16:22)
--- NOTE | 2022-01-30 08:56 | PM.PNCARD ---
Progress Note: A&P Assessment and Plan (1) Chest pain: Code(s): R07.9 - Chest pain, unspecified Status: Acute Assessment and Plan: Atypical, non-cardiac. His chest pain is reproducible and musculoskeletal in nature. No further cardiac workup indicated or recommended. (2) Elevated troponin: Code(s): R77.8 - Other specified abnormalities of plasma proteins Status: Acute Assessment and Plan: His troponins were elevated but he does not have any symptoms that are consistent with ACS. Elevation in troponin probably related to JOSE F/CKD. No further cardiac workup indicated or recommended. He follows with Dr. Wheeler - would recommend follow up 2-4 weeks post discharge. We can see him on an as needed basis, no acute cardiac issues present. Subjective Date/time seen: 01/30/22 08:56 Cardiology follow up for chest pain, elevated trop, Afib He is complaining of nausea and back spasms this morning. Denies any chest pain, shortness of breath, palpitations. Review of Systems Review of Systems: All systems reviewed & are unremarkable except as noted in HPI and below Constitutional: Constitutional: Reports fatigue Eyes: Eyes: Reports no additional eye complaints ENT: Reports system reviewed and no additional complaints, except as documented and Reports neck pain Cardiovascular: Cardiovascular: Reports as per HPI Respiratory: Respiratory: Reports no additional respiratory complaints Gastrointestinal: Gastrointestinal: Reports no additional gastrointestinal complaints Musculoskeletal: Musculoskeletal: Reports as per HPI and Reports neck pain Integumentary/Breasts: Skin/Breast: Reports system reviewed and no additional complaints, except as docu Endocrine: Endocrine: Reports no additional endocrine complaints and Reports fatigue Hematologic/Lymphatic: Hematologic/Lymphatic: Reports no additional hematologic/lymphatic complaints Allergic/Immunologic: Allergic/Immunologic: Reports no additional allergic/immunologic complaints Exam Const: General: comfortable and no acute distress HENMT: Mouth: Yes moist mucous membranes Eyes: Sclera: sclerae normal Neck: Neck: no JVD Other: Resp: Effort & Inspection: normal respiratory effort Auscultation: clear to auscultation bilaterally and lung sounds not diminished Cardio: Palpation: other (reproducible chest wall pain to palpation ) Rate: regular rate Rhythm: regular rhythm Heart sounds: no gallops, Murmur heart sound present systolic and no rubs GI: Auscultation: normal bowel sounds Skin: General skin exam: normal color, rashes and/or lesions noted and no erythema Other: Warm Neuro: Cognition (Neuro): normal cognition Extrem: Other: mild to moderate chronic appearing edema adequate distal pulses Objective Data Vital Signs Vital Signs: Vital Signs - 24 hr 01/29/22 16:00 01/29/22 20:00 01/29/22 20:38 Temperature 37.2 C Pulse Rate 70 80 80 Respiratory Rate 18 18 Blood Pressure 118/64 Pulse Oximetry 97 97 01/29/22 22:00 01/30/22 06:00 01/30/22 08:02 Temperature 36.1 C L 36.3 C L Pulse Rate 69 63 67 Respiratory Rate 20 20 Blood Pressure 158/62 H 150/65 H Pulse Oximetry 98 98 Intake/Output Intake/Output: Intake & Output 01/27/22 01/28/22 01/29/22 01/30/22 23:59 23:59 23:59 23:59 Intake Total 690 1080 2420 1090 Output Total 1170 2030 2100 1500 Balance -480 -950 320 -410 Meds/Results Medications: Active Medications Generic Name Dose Route Start Last Admin Trade Name Aakash PRN Reason Stop Dose Admin Acetaminophen 325 - 650 mg 01/27/22 20:46 01/30/22 08:04 Acetaminophen 325 Mg Tablet PO 650 mg Q6H PRN Administration Pain 1-3 Amiodarone HCl 200 mg 01/27/22 21:00 01/29/22 20:38 Amiodarone Hcl 200 Mg Tablet PO 200 mg HS ALBERTO Administration Amlodipine Besylate 5 mg 01/28/22 09:00 01/30/22 08:03 Amlodipine Besylate 5 Mg Tablet PO 5 mg DAILY ALBERTO Administrat
--- NOTE | 2022-01-30 10:56 | PCOTNOTE ---
Attempted to see patient for OT. Patient refused, stating he's sat up already this AM and bathed yesterday. Patient continued to decline therapy despite encouragement for optimal recovery and increased wellness. Patient not seen this date for OT.
[2022-01-30 11:35] LABS: Glucose Point of Care 212 mg/dl (65-105)
[2022-01-30] MEDS: INSULIN ASPART (*BKC) 100 UNITS/ML SUB-Q (12:07)
--- NOTE | 2022-01-30 14:38 | PM.IMPN ---
Progress Note: A&P Assessment and Plan (1) Chest pain: Code(s): R07.9 - Chest pain, unspecified Status: Acute Assessment and Plan: Likely related to left-sided shoulder pain. Unlikely to be cardiac. (2) Elevated troponin: Code(s): R77.8 - Other specified abnormalities of plasma proteins Status: Acute Assessment and Plan: Per cardiology, no workup needed. No substernal chest pain (3) Acute renal insufficiency: Code(s): N28.9 - Disorder of kidney and ureter, unspecified Status: Acute Assessment and Plan: Creat is 1.9 continue to hydrate (4) A-fib: Code(s): I48.91 - Unspecified atrial fibrillation Status: Inactive Assessment and Plan: ControllEd stable AF Repeat INR in the morning. (5) Hypertension: Code(s): I10 - Essential (primary) hypertension Status: Inactive Assessment and Plan: Continue home meds. Monitor (6) Diabetes: Code(s): E11.9 - Type 2 diabetes mellitus without complications Status: Inactive Assessment and Plan: Continue with insulin. Monitor blood sugars. (7) Coronary artery disease: Code(s): I25.10 - Atherosclerotic heart disease of [place] coronary artery without angina pectoris Status: Inactive (8) Chronic kidney disease: Code(s): N18.9 - Chronic kidney disease, unspecified Status: Inactive Assessment and Plan: Baseline appears to be around a creatinine of 1.6. creat is 1.9 today (9) Hip pain: Code(s): M25.559 - Pain in unspecified hip Status: Acute Assessment and Plan: Moderate hip OA pt is on tramadol and tylenol for pain consult orthopedics possible bursitis of hip joint ? benefits from steroid shot Subjective Date/time seen: 01/30/22 14:38 Interval history: Mr. Wang there is a 76-year-old gentleman who presented emergency room with complaints of atypical chest discomfort. Patient states he ate breakfast at the assisted living establishment he resides that and went back to his room and started to feel ?funny?. Pt is complaining of R hip pain and L neck and shoulder pain. Chest pain he states is more right sided. Pt was seen by cardiology chest pain appears non cardiac in nature. Pt asking for more pain medications as his hip hurts. Review of Systems Review of Systems: All systems reviewed & are unremarkable except as noted in HPI and below Exam Const: Nutritional Appearance: overweight Orientation/consciousness: oriented to person HENMT: Head: normal to inspection Resp: Effort & Inspection: no respiratory distress Auscultation: no rhonchi and no wheezes Cardio: Rate: regular rate Rhythm: regular rhythm GI: Inspection: normal to inspection GI Palp: No abdominal tenderness, No Guarding due to palpation present (GI) and No Hepatomegaly present Auscultation: normal bowel sounds Neuro: General: oriented to person Extrem: Other: R hip TTP over joint Objective Data Vital Signs Vital Signs: Vital Signs - 24 hr 01/29/22 16:00 01/29/22 20:00 01/29/22 20:38 Temperature 37.2 C Pulse Rate 70 80 80 Respiratory Rate 18 18 Blood Pressure 118/64 Pulse Oximetry 97 97 01/29/22 22:00 01/30/22 06:00 01/30/22 08:02 Temperature 36.1 C L 36.3 C L Pulse Rate 69 63 67 Respiratory Rate 20 20 Blood Pressure 158/62 H 150/65 H Pulse Oximetry 98 98 Intake/Output Intake/Output: Intake & Output 01/27/22 01/28/22 01/29/22 01/30/22 23:59 23:59 23:59 23:59 Intake Total 690 1080 2420 1330 Output Total 1170 2030 2100 1550 Balance -480 -950 320 -220 Meds/Results Medications: Active Medications Generic Name Dose Route Start Last Admin Trade Name Freq PRN Reason Stop Dose Admin Acetaminophen 325 - 650 mg 01/27/22 20:46 01/30/22 08:04 Acetaminophen 325 Mg Tablet PO 650 mg Q6H PRN Administration Pain 1-3 Amiodarone HCl 200 mg 01/27/22 21:00 01/29/22 20:38 Amiodarone Hcl 20
[2022-01-30 14:50] VITALS: BP 137/61; PULSE 65; RESP 16; TEMP 36.9; O2SAT 96
--- NOTE | 2022-01-30 15:53 | PM.CNOR ---
Assessment and Plan Assessment and plan (1) Trochanteric bursitis, right hip: Code(s): M70.61 - Trochanteric bursitis, right hip Status: Acute Assessment and Plan: Patient reports a new onset right lateral-sided hip pain since time admission. History, exam and radiographs reviewed with the patient. Radiographs of the right hip reveal moderate degenerative changes. No signs of AVN. Patient has no groin pain. Mild limitations with internal rotation. Patient has lateral-sided hip pain with external rotation and internal rotation. Mild strength limitations with hip abduction. Patient has pain over the greater trochanter of the right hip with palpation. Discussed condition, nature, etiology and course of natural history. Conservative treatment options reviewed as well as the risks and benefits of each. Patient may benefit from cortisone injection. Patient reports a history of elevated blood glucose levels with cortisone injection in the past. He currently feels as though he is not improving with oral pain medication. Patient is also on a blood thinner. Recommend initiating lidocaine patch at this time. We will plan for trochanteric bursitis injection if cleared by medicine team. We will also await left shoulder radiographs to determine potential need for shoulder injection as well. Obtain consent in the interim. We will continue to follow. Plan for cortisone injection likely tomorrow. (2) Left shoulder pain: Qualifiers: Chronicity: acute Qualified Code(s): M25.512 - Pain in left shoulder Code(s): M25.512 - Pain in left shoulder Status: Acute Assessment and Plan: Patient reports left shoulder pain which radiates into the neck and over the anterior lateral acromion. He denies known injury. No radiographs obtained up to this point. Patient has pain with internal rotation. Good range of motion with forward flexion. We will obtain radiographs for further evaluation. (3) Type 2 diabetes mellitus: Code(s): E11.9 - Type 2 diabetes mellitus without complications Status: Acute Assessment and Plan: Patient has a history of diabetes. Currently on insulin. Patient has risk of elevated blood glucose levels status post cortisone injection. Patient has a history of blood glucose levels into the 400s status post injection in the past per patient report. Hospitalist service treating and managing diabetes currently. Possible need for alterations to medication if elevations arise with cortisone injection. We will defer such treatment to medicine service. (4) Elevated troponin: Code(s): R77.8 - Other specified abnormalities of plasma proteins Status: Acute Assessment and Plan: Cleared by Cardiology. Patient to follow-up with pouncing lat[facility] operator 2-4 weeks post discharge per cardiology recommendations. No acute cardiac issues present for cardiology team. (5) Chest pain: Code(s): R07.9 - Chest pain, unspecified Status: Acute Assessment and Plan: Chest pain felt to be musculoskeletal in nature. At this time, patient denies chest pain and shortness of breath. He does report lateral shoulder pain which radiates into the lateral aspect of the neck. Additional Plan This document was completed by using [employer] Direct speech recognition software, therefore support teacher variances may occur. Despite proofreading, typographical errors may also occur. History of Present Illness HPI Consult date: 01/30/22 Requesting physician: Jihan Nunez MD Consult reason: other (Right Hip, Left Shoulder Pain ) Chief complaint: Chest pain/elevated troponin/dizziness Narrative: 76-year-old male admitted on January 27 from [facility] emergency room due to atypical chest pain and a mildly elevated troponin. Cardiology was originally consulted. Per cardiology, he has no symptoms consistent with ACS. They feel his elevated troponin are likely due to JOSE F/CKD. They feel
[2022-01-30 16:22] LABS: INR 1.6; Prothrombin Time 18.3 Seconds (11.1-14.7)
[2022-01-30 16:40] LABS: Glucose Point of Care 175 mg/dl (65-105)
[2022-01-30 19:29] VITALS: BP 117/66; PULSE 65; RESP 20; TEMP 36.6; O2SAT 96
[2022-01-30 20:00] VITALS: PULSE 65; RESP 20; O2SAT 96
[2022-01-30] MEDS: INSULIN GLARGINE (*BKC) 100 UNITS/ML 25 UNITS SUB-Q (20:24)
[2022-01-30 20:28] VITALS: PULSE 65
[2022-01-30] MEDS: WARFARIN (*PBKC) 5 MG TABLET PO (20:28)
[2022-01-30] MEDS: VITAMIN E 1,000 UNIT CAPSULE 1000 UNIT PO (20:28)
[2022-01-30] MEDS: AMIODARONE HCL 200 MG TABLET PO (20:28)
[2022-01-30] MEDS: DOXAZOSIN MESYLATE 2 MG TABLET PO (20:29)
[2022-01-30] MEDS: OMEGA 3 POLYUNSAT FATTY ACIDS 1 GM CAP PO (20:29)
[2022-01-30 20:35] LABS: Glucose Point of Care 188 mg/dl (65-105)
[2022-01-31] VITALS (7 sets, daily range): BP systolic 109–147; BP diastolic 44–70; PULSE 60–74; RESP 16–20; TEMP 36.4–37.1; O2SAT 92–100
[2022-01-31 05:57] LABS: Anion Gap 6 mmol/L (8-16); Blood Urea Nitrogen 38 mg/dL (9-20); Calcium 8.3 mg/dL (8.4-10.2); Carbon Dioxide 27 mmol/L (22-30); Chloride 102 mmol/L (98-107); Estimated CRCL calculation 36 ml/min; Estimated Glomerular Filt Rate 28; Glucose 171 mg/dL (65-110); INR 1.6; Potassium 3.9 mmol/L (3.4-5.0); Prothrombin Time 18.4 Seconds (11.1-14.7); Sodium 135 mmol/L (137-145)
[2022-01-31] MEDS: LEVOTHYROXINE SODIUM 112 MCG TABLET PO (06:02)
[2022-01-31 07:51] LABS: Glucose Point of Care 155 mg/dl (65-105)
[2022-01-31] MEDS: ASCORBIC ACID 500 MG TABLET PO (08:04)
[2022-01-31] MEDS: CALCIUM CARBONATE (TUMS) 500 MG (200 MG ELEMENTAL) PO ×2 (08:04→16:33)
[2022-01-31] MEDS: MULTIVITS W-FE,MIN CHEWABLE TABLET 2 TABLET PO (08:04)
[2022-01-31] MEDS: SPIRONOLACTONE 25 MG TABLET PO (08:04)
[2022-01-31] MEDS: CHOLECALCIFEROL 1,000 UNITS TABLET 6000 UNITS PO (08:04)
[2022-01-31] MEDS: MAGNESIUM OXIDE 400 MG TABLET PO ×2 (08:04→16:33)
[2022-01-31] MEDS: CYCLOBENZAPRINE HCL 10 MG TABLET PO ×2 (08:05→16:33)
[2022-01-31] MEDS: METOPROLOL SUCCINATE EXT REL 25 MG TABCR PO (08:05)
[2022-01-31] MEDS: PANTOPRAZOLE 40 MG TABLET PO (08:05)
[2022-01-31] MEDS: ISOSORBIDE MONONITRATE 60 MG TAB.ER.24H 120 MG PO (08:05)
[2022-01-31] MEDS: amLODIPine BESYLATE 5 MG TABLET PO (08:05)
[2022-01-31] MEDS: CLOPIDOGREL BISULFATE 75 MG TABLET PO (08:05)
[2022-01-31] MEDS: LIDOCAINE 5% PATCH 1 PATCH TRANSDERM (08:06)
[2022-01-31] MEDS: hydroCHLOROthiazide 25 MG TABLET PO (08:06)
[2022-01-31] MEDS: LOSARTAN POTASSIUM 25 MG TABLET PO (08:06)
[2022-01-31] MEDS: hydrALAZINE HCL 50 MG TABLET 100 MG PO ×2 (08:06→16:33)
--- NOTE | 2022-01-31 08:56 | PM.PNORT ---
Progress Note: A&P Assessment and Plan (1) Trochanteric bursitis, right hip: Code(s): M70.61 - Trochanteric bursitis, right hip Status: Acute Assessment and Plan: Patient with continued right lateral sided hip pain. Continues to deny groin pain. History, exam and radiographs reviewed with the patient once again. Condition, nature, etiology and course of natural history discussed. Conservative and operative treatment options reviewed as well as the risks and benefits of both. Recommended proceeding with cortisone injection of the trochanteric bursitis. The risks of injection were reviewed including but not limited to skin color changes, atrophy of the soft tissue, tendon or soft tissue rupture, joint degeneration, hyper inflammatory response, allergic reaction, continued pain or dysfunction. Specific risks of the procedure including deep infection or soft tissue rupture or recurrence of symptoms reviewed. No guarantees were offered. The patient understands the need for possible further treatment. Injection performed, tolerated well. Post injection instructions discussed. Continue PT/OT for strengthening. WBAT. Walker for fall prevention. Continue lidocaine patch. May follow up as an outpatient for recurrent pain. Would recommend PT/OT at patient's facility for continued lower extremity strengthening. (2) DJD of shoulder: Qualifiers: Osteoarthritis type: primary Laterality: left Qualified Code(s): M19.012 - Primary osteoarthritis, left shoulder Code(s): M19.019 - Primary osteoarthritis, unspecified shoulder Status: Acute Assessment and Plan: Radiographs of the left shoulder reveal severe AC joint DJD and mild glenohumeral joint DJD. Patient reports improvement in shoulder pain today. Continues to endorse left lateral sided neck pain. If improvement in right hip pain, may transition lidocaine patch to neck for pain relief. Patient may be a candidate for left shoulder joint injection; however, he has had difficulties with elevated blood glucose levels in the past s/p injection. Would advise against two injections at this time. If continued left shoulder pain and stable blood glucose levels, may proceed with injection. May also f/u as an outpatient for shoulder pain. Continue PT/OT. WBAT. (3) Type 2 diabetes mellitus: Code(s): E11.9 - Type 2 diabetes mellitus without complications Status: Acute Assessment and Plan: Discussed possibility of rise in blood glucose levels with cortisone injection. Patient verbalized understanding of explained risks and wishes to proceed. Counseled on close monitoring of blood glucose readings for the next week and contact PCP for elevations and adjustments in regimen pending discharge. Medicine service to follow and treat blood glucose levels in the interim while hospitalized. Time Spent With Patient Time with patient: 15 - 25 minutes Subjective Subjective Date/Time Seen: 01/31/22 08:56 Interval history: Patient reports mild improvement in left shoulder pain. Continued right hip pain. Worked well with PT/OT this AM. No new concerns. Review of Systems Review of Systems: All systems reviewed & are unremarkable except as noted in HPI and below Constitutional: Constitutional: Reports as per HPI Exam Const: General: comfortable and no acute distress Nutritional Appearance: overweight Orientation/consciousness: patient oriented x3 Limitations: no limitations HENMT: Head: normal to inspection Ears: hearing grossly normal bilaterally General nose exam: Normal external nose present Face and sinus: normal facial exam Mouth: Yes moist mucous membranes Teeth and gingiva: dentition normal Eyes: General: appearance normal, both eyes and all related structures Pupils: Equal, round and reactive pupils present EOM: EOMs intact bilaterally Neck: Neck: supple and no JVD Chest: Chest palpation & inspection: normal inspection of the chest Resp: E
--- NOTE | 2022-01-31 08:56 | PM.OP ---
Procedure Note - Brief Procedure Note - Brief Date of procedure: 01/31/22 Pre-op diagnosis: Chest pain/elevated troponin/dizziness Right Hip Trochanteric Bursitis Post-op diagnosis: Same Procedure performed: Right Hip Trochanteric Bursitis Injection Description of procedure: Right lateral hip prepped with alcohol and iodine. 1mL cortisone injection performed under sterile conditions (40mg/mL methylprednisolone acetate injectable). Adhesive dressing applied. Anesthesia: local (Lidocaine 1%- 2mL/ Marcaine 5%- 2mL ) Surgeon: BO Harris Office Executive: n/a Estimated blood loss (mL): 0 Tourniquet time (min): 0 IV fluids (mL): 0 Urine output (mL): 0 Drains: No Packing: No Pathology: None sent Complications: No immediate complications Condition: Stable Disposition: Floor
[2022-01-31] MEDS: traMADol HCL (*CRX) 50 MG TABLET PO (10:50)
[2022-01-31 11:11] LABS: Glucose Point of Care 204 mg/dl (65-105)
--- NOTE | 2022-01-31 11:23 | PCOTNOTE ---
Attempted to see patient twice this am. First attempt, patient was with physical therapy. Second attempt, patient refused secondary to pain. Pt frequently grimacing stating, Every time I move. RN notified.
--- NOTE | 2022-01-31 11:44 | PM.IMPN ---
Progress Note: A&P Assessment and Plan (1) Chest pain: Code(s): R07.9 - Chest pain, unspecified Status: Acute Assessment and Plan: Likely related to left-sided shoulder pain. Unlikely to be cardiac. Can try Lidoderm patch for left shoulder, can xray shoulder (2) Elevated troponin: Code(s): R77.8 - Other specified abnormalities of plasma proteins Status: Acute Assessment and Plan: Per cardiology, no workup needed. No substernal chest pain (3) Acute renal insufficiency: Code(s): N28.9 - Disorder of kidney and ureter, unspecified Status: Acute Assessment and Plan: Creat is 2.3 worse from yesterday (4) A-fib: Code(s): I48.91 - Unspecified atrial fibrillation Status: Inactive Assessment and Plan: Controlled stable AF Repeat INR in the morning. (5) Hypertension: Code(s): I10 - Essential (primary) hypertension Status: Inactive Assessment and Plan: Continue home meds. Monitor (6) Diabetes: Code(s): E11.9 - Type 2 diabetes mellitus without complications Status: Inactive Assessment and Plan: Continue with insulin. Monitor blood sugars. (7) Coronary artery disease: Code(s): I25.10 - Atherosclerotic heart disease of [place] coronary artery without angina pectoris Status: Inactive (8) Chronic kidney disease: Code(s): N18.9 - Chronic kidney disease, unspecified Status: Inactive Assessment and Plan: Baseline appears to be around a creatinine of 1.6. creat is 2.3 today continue to watch and hydrate, pt with iv fluids pt creat continues to worsen consult nephrology. (9) Hip pain: Code(s): M25.559 - Pain in unspecified hip Status: Acute Assessment and Plan: Moderate hip OA pt is on tramadol and tylenol for pain consult orthopedics possible bursitis of hip joint pt had steroid shot today Subjective Date/time seen: 01/31/22 11:44 Interval history: Mr. Wang there is a 76-year-old gentleman who presented emergency room with complaints of atypical chest discomfort. Patient states he ate breakfast at the assisted living establishment he resides that and went back to his room and started to feel ?funny?. Pt is complaining of R hip pain and L neck and shoulder pain. Chest pain he states is more right sided. Pt was seen by cardiology chest pain appears non cardiac in nature. Pt seen by orthopedics today had steroid shot into his hip today continue to watch blood sugars today, pt is very sensitive to steroids, pts creat is worsened today Review of Systems Review of Systems: All systems reviewed & are unremarkable except as noted in HPI and below Exam Const: Nutritional Appearance: overweight Orientation/consciousness: oriented to person HENMT: Head: normal to inspection Resp: Effort & Inspection: no respiratory distress Auscultation: no rhonchi and no wheezes Cardio: Rate: regular rate Rhythm: regular rhythm GI: Inspection: normal to inspection Auscultation: normal bowel sounds Neuro: General: oriented to person Extrem: Other: R hip TTP over joint TTP over Left shoulder tip Objective Data Vital Signs Vital Signs: Vital Signs - 24 hr 01/30/22 14:50 01/30/22 19:29 01/30/22 20:00 Temperature 36.9 C 36.6 C Pulse Rate 65 65 65 Respiratory Rate 16 20 20 Blood Pressure 137/61 117/66 Pulse Oximetry 96 96 96 01/30/22 20:28 01/31/22 00:00 01/31/22 04:32 Temperature 36.8 C 37.1 C Pulse Rate 65 70 65 Respiratory Rate 20 20 Blood Pressure 112/50 L 147/70 H Pulse Oximetry 92 95 01/31/22 08:05 01/31/22 08:51 Temperature 36.6 C Pulse Rate 67 74 Respiratory Rate 18 Blood Pressure 127/54 L Pulse Oximetry 98 Intake/Output Intake/Output: Intake & Output 01/28/22 01/29/22 01/30/22 01/31/22 23:59 23:59 23:59 23:59 Intake Total 1080 2420 1810 790 Output Total 2029 2099 1850 1100 Balance -950 320 -40 -310 Meds/Results
[2022-01-31] MEDS: INSULIN ASPART (*BKC) 100 UNITS/ML SUB-Q ×2 (12:08→16:54)
[2022-01-31] MEDS: SODIUM CHLORIDE 0.9% IV 1,000 ML 70 ML IV CONT (12:08)
[2022-01-31 14:57] LABS: INR 1.6; Prothrombin Time 18.4 Seconds (11.1-14.7)
--- NOTE | 2022-01-31 16:00 | PM.CNOR ---
Assessment and Plan Assessment and plan (1) Left shoulder pain: Qualifiers: Chronicity: acute Qualified Code(s): M25.512 - Pain in left shoulder Code(s): M25.512 - Pain in left shoulder Status: Acute Assessment and Plan: Orthopedic consultation reviewed and agree with findings. Radiographs reviewed. No acute changes noted left shoulder and right hip. Plan for right hip trochanteric bursa injection. We will see how he does with this. May consider a left shoulder injection. (2) DJD of shoulder: Qualifiers: Osteoarthritis type: primary Laterality: left Qualified Code(s): M19.012 - Primary osteoarthritis, left shoulder Code(s): M19.019 - Primary osteoarthritis, unspecified shoulder Status: Acute (3) Trochanteric bursitis, right hip: Code(s): M70.61 - Trochanteric bursitis, right hip Status: Acute (4) Hip pain: Code(s): M25.559 - Pain in unspecified hip Status: Acute History of Present Illness HPI Consult date: 01/31/22 Requesting physician: Jihan Nunez MD Consult reason: joint pain Chief complaint: Chest pain/elevated troponin/dizziness Narrative: 76-year-old male admitted on January 27 from [place] emergency room due to atypical chest pain and a mildly elevated troponin. He complains of left shoulder pain which radiates into the left side of the neck. He also complains of right lateral-sided hip pain. Radiographs of the hips were obtained which reveal moderate right hip DJD. Patient has no groin pain. His pain is all lateral in nature. His left shoulder is painful with internal rotation only. Shoulder radiographs show degenerative changes of the AC joint, mild degenerative changes glenohumeral joint. No acute changes. He reports a history of bilateral knee pain status post COVID-19 injection which required aspirations and hospitalization. Review of Systems Review of Systems: All systems reviewed & are unremarkable except as noted in HPI and below Constitutional: Constitutional: Reports fatigue Eyes: Eyes: Reports no additional eye complaints ENT: Reports system reviewed and no additional complaints, except as documented and Reports neck pain Cardiovascular: Cardiovascular: Reports as per HPI Respiratory: Respiratory: Reports no additional respiratory complaints Gastrointestinal: Gastrointestinal: Reports no additional gastrointestinal complaints Musculoskeletal: Musculoskeletal: Reports as per HPI and Reports neck pain Integumentary/Breasts: Skin/Breast: Reports system reviewed and no additional complaints, except as docu Endocrine: Endocrine: Reports no additional endocrine complaints and Reports fatigue Hematologic/Lymphatic: Hematologic/Lymphatic: Reports no additional hematologic/lymphatic complaints Allergic/Immunologic: Allergic/Immunologic: Reports no additional allergic/immunologic complaints [facility] Past Medical History Medical History A-fib Chronic kidney disease Coronary artery disease Diabetes DJD of shoulder Hypertension Hypothyroidism Left shoulder pain Myocardial infarct, old Obesities, morbid Sleep apnea Trochanteric bursitis, right hip Type 2 diabetes mellitus Surgical History Surgical History History of cholecystectomy History of percutaneous coronary intervention Family History Family History Father Cerebrovascular accident Diabetes mellitus Mother Diabetes mellitus Social History Social History Years smoked: 20 Smoking status: Former smoker Tobacco type: cigars Second hand tobacco smoke exposure: No Alcohol intake: never Substance use: never Substance use type: does not use Gender identity (if verbalized by the patient): Male Sexual Orientation (if
[2022-01-31 16:33] LABS: Glucose Point of Care 208 mg/dl (65-105)
[2022-01-31] MEDS: ACETAMINOPHEN 325 MG TABLET PO (16:34)
[2022-01-31] MEDS: HYDROcodone/acetaminophen (*CRX) 5-325 MG TABLET 1 TAB PO (19:55)
[2022-01-31] MEDS: INSULIN GLARGINE (*BKC) 100 UNITS/ML 25 UNITS SUB-Q (20:37)
[2022-01-31] MEDS: AMIODARONE HCL 200 MG TABLET PO (20:40)
[2022-01-31] MEDS: OMEGA 3 POLYUNSAT FATTY ACIDS 1 GM CAP PO (20:40)
[2022-01-31] MEDS: VITAMIN E 1,000 UNIT CAPSULE 1000 UNIT PO (20:40)
[2022-01-31] MEDS: DOXAZOSIN MESYLATE 2 MG TABLET PO (20:41)
[2022-01-31] MEDS: WARFARIN (*PBKC) 3 MG TABLET 6 MG PO (20:42)
[2022-01-31 21:07] LABS: Glucose Point of Care 206 mg/dl (65-105)
[2022-02-01] VITALS (7 sets, daily range): BP systolic 121–134; BP diastolic 57–58; PULSE 53–72; RESP 16–21; TEMP 36.1–36.6; O2SAT 95–100
[2022-02-01] MEDS: traMADol HCL (*CRX) 50 MG TABLET PO ×2 (01:11→08:57)
[2022-02-01] MEDS: SODIUM CHLORIDE 0.9% IV 1,000 ML 70 ML IV CONT ×2 (01:11→15:40)
[2022-02-01 05:45] LABS: INR 1.6; Prothrombin Time 18.4 Seconds (11.1-14.7)
[2022-02-01] MEDS: LEVOTHYROXINE SODIUM 112 MCG TABLET PO (05:47)
[2022-02-01 05:56] LABS: Potassium 4.5 mmol/L (3.4-5.0)
[2022-02-01 07:48] LABS: Glucose Point of Care 191 mg/dl (65-105)
[2022-02-01] MEDS: LIDOCAINE 5% PATCH 1 PATCH TRANSDERM ×2 (08:47→08:48)
[2022-02-01] MEDS: amLODIPine BESYLATE 5 MG TABLET PO (08:47)
[2022-02-01] MEDS: ASCORBIC ACID 500 MG TABLET PO (08:49)
[2022-02-01] MEDS: CLOPIDOGREL BISULFATE 75 MG TABLET PO (08:49)
[2022-02-01] MEDS: METOPROLOL SUCCINATE EXT REL 25 MG TABCR PO (08:50)
[2022-02-01] MEDS: hydroCHLOROthiazide 25 MG TABLET PO (08:50)
[2022-02-01] MEDS: SPIRONOLACTONE 25 MG TABLET PO (08:50)
[2022-02-01] MEDS: PANTOPRAZOLE 40 MG TABLET PO (08:50)
[2022-02-01] MEDS: ISOSORBIDE MONONITRATE 60 MG TAB.ER.24H 120 MG PO (08:51)
[2022-02-01] MEDS: CALCIUM CARBONATE (TUMS) 500 MG (200 MG ELEMENTAL) PO ×2 (08:51→16:48)
[2022-02-01] MEDS: MULTIVITS W-FE,MIN CHEWABLE TABLET 2 TABLET PO (08:52)
[2022-02-01] MEDS: CYCLOBENZAPRINE HCL 10 MG TABLET PO ×2 (08:52→16:48)
[2022-02-01] MEDS: MAGNESIUM OXIDE 400 MG TABLET PO ×2 (08:52→16:50)
[2022-02-01] MEDS: hydrALAZINE HCL 50 MG TABLET 100 MG PO ×2 (08:52→16:49)
[2022-02-01] MEDS: LOSARTAN POTASSIUM 25 MG TABLET PO (08:52)
[2022-02-01] MEDS: CHOLECALCIFEROL 1,000 UNITS TABLET 6000 UNITS PO (08:52)
[2022-02-01 11:18] LABS: Glucose Point of Care 189 mg/dl (65-105)
--- NOTE | 2022-02-01 15:30 | PM.IMPN ---
Progress Note: A&P Assessment and Plan (1) Chest pain: Code(s): R07.9 - Chest pain, unspecified Status: Acute Assessment and Plan: Likely related to left-sided shoulder pain. Unlikely to be cardiac. Can try Lidoderm patch for left shoulder, XRay shows arthritis of left shoulder. PT having L shoulder tip pain and neck spasm on going control pain control and PT possible dc back to [facility] with home health services in 1-2 days time (2) Elevated troponin: Code(s): R77.8 - Other specified abnormalities of plasma proteins Status: Acute Assessment and Plan: Per cardiology, no workup needed. No substernal chest pain (3) Acute renal insufficiency: Code(s): N28.9 - Disorder of kidney and ureter, unspecified Status: Acute Assessment and Plan: Creat is 2.3 pt has been on fluids recheck creat today (4) A-fib: Code(s): I48.91 - Unspecified atrial fibrillation Status: Inactive Assessment and Plan: Controlled stable AF Repeat INR in the morning. (5) Hypertension: Code(s): I10 - Essential (primary) hypertension Status: Inactive Assessment and Plan: Continue home meds. Monitor (6) Diabetes: Code(s): E11.9 - Type 2 diabetes mellitus without complications Status: Inactive Assessment and Plan: Continue with insulin. Monitor blood sugars. (7) Coronary artery disease: Code(s): I25.10 - Atherosclerotic heart disease of [place] coronary artery without angina pectoris Status: Inactive (8) Chronic kidney disease: Code(s): N18.9 - Chronic kidney disease, unspecified Status: Inactive Assessment and Plan: Baseline appears to be around a creatinine of 1.6. creat is 2.3 today continue to watch and hydrate, pt with iv fluids pt creat continues to worsen consult nephrology. (9) Hip pain: Code(s): M25.559 - Pain in unspecified hip Status: Acute Assessment and Plan: Moderate hip OA pt is on tramadol and tylenol for pain consult orthopedics possible bursitis of hip joint pt had steroid shot walking some Subjective Date/time seen: 02/01/22 15:30 Interval history: Mr. Wang there is a 76-year-old gentleman who presented emergency room with complaints of atypical chest discomfort. Patient states he ate breakfast at the assisted living establishment he resides that and went back to his room and started to feel ?funny?. Pt is complaining of R hip pain and L neck and shoulder pain. Chest pain he states is more right sided. Pt was seen by cardiology chest pain appears non cardiac in nature. 01/31/2022 Pt seen by orthopedics today pt had steroid shot into his hip 02/01/2022 Pt started walking little, still having pain in the L side of his neck and R hip worse at night Review of Systems Review of Systems: All systems reviewed & are unremarkable except as noted in HPI and below Exam Const: Nutritional Appearance: overweight Orientation/consciousness: oriented to person HENMT: Head: normal to inspection Resp: Effort & Inspection: no respiratory distress Auscultation: no rhonchi and no wheezes Cardio: Rate: regular rate Rhythm: regular rhythm GI: Inspection: normal to inspection Auscultation: normal bowel sounds Neuro: General: oriented to person Extrem: Other: R hip Non tender TTP over Left shoulder tip and L side of his neck Objective Data Vital Signs Vital Signs: Vital Signs - 24 hr 01/31/22 20:40 01/31/22 23:52 02/01/22 05:15 Temperature 36.4 C 36.4 C Pulse Rate 70 60 72 Respiratory Rate 18 16 Blood Pressure 123/59 L 134/58 L Pulse Oximetry 100 96 02/01/22 08:50 02/01/22 09:21 02/01/22 14:11 Temperature 36.6 C Pulse Rate 71 59 L Respiratory Rate 16 Blood Pressure 121/57 L Pulse Oximetry 96 95 Intake/Output Intake/Output: Intake & Output 01/29/22 01/30/22 01/31/22 02/01/22 23:59 23:59 23:59 23:59 Intake Total 2420 18
[2022-02-01 15:31] LABS: INR 1.7; Prothrombin Time 19.1 Seconds (11.1-14.7)
[2022-02-01 16:21] LABS: Anion Gap 6 mmol/L (8-16); Blood Urea Nitrogen 38 mg/dL (9-20); Calcium 8.7 mg/dL (8.4-10.2); Carbon Dioxide 28 mmol/L (22-30); Chloride 102 mmol/L (98-107); Estimated CRCL calculation 43 ml/min; Estimated Glomerular Filt Rate 35; Glucose 223 mg/dL (65-110); Potassium 4.5 mmol/L (3.4-5.0); Sodium 136 mmol/L (137-145)
[2022-02-01 16:30] LABS: Glucose Point of Care 221 mg/dl (65-105)
[2022-02-01] MEDS: DICLOFENAC SODIUM 1% 100 GM GEL (*BKC) 1 APPLIC TOPICAL ×2 (16:48→20:46)
[2022-02-01] MEDS: INSULIN ASPART (*BKC) 100 UNITS/ML SUB-Q (16:50)
[2022-02-01] MEDS: INSULIN GLARGINE (*BKC) 100 UNITS/ML 25 UNITS SUB-Q (20:39)
[2022-02-01] MEDS: WARFARIN (*PBKC) 5 MG TABLET PO (20:43)
[2022-02-01] MEDS: AMIODARONE HCL 200 MG TABLET PO (20:43)
[2022-02-01] MEDS: VITAMIN E 1,000 UNIT CAPSULE 1000 UNIT PO (20:43)
[2022-02-01] MEDS: OMEGA 3 POLYUNSAT FATTY ACIDS 1 GM CAP PO (20:43)
[2022-02-01] MEDS: DOXAZOSIN MESYLATE 2 MG TABLET PO (20:43)
[2022-02-01 21:51] LABS: Glucose Point of Care 258 mg/dl (65-105)
[2022-02-02 05:45] LABS: INR 1.9; Prothrombin Time 20.8 Seconds (11.1-14.7)
[2022-02-02] MEDS: SODIUM CHLORIDE 0.9% IV 1,000 ML 70 ML IV CONT (05:46)
[2022-02-02] MEDS: LEVOTHYROXINE SODIUM 112 MCG TABLET PO (05:47)
[2022-02-02 05:56] LABS: Anion Gap 5 mmol/L (8-16); Blood Urea Nitrogen 39 mg/dL (9-20); Calcium 8.4 mg/dL (8.4-10.2); Carbon Dioxide 27 mmol/L (22-30); Chloride 102 mmol/L (98-107); Estimated CRCL calculation 38 ml/min; Estimated Glomerular Filt Rate 33; Glucose 211 mg/dL (65-110); Potassium 4.4 mmol/L (3.4-5.0); Sodium 134 mmol/L (137-145)
[2022-02-02 06:00] VITALS: BP 157/69; PULSE 71; RESP 20; TEMP 36.4; O2SAT 98
[2022-02-02 07:40] LABS: Glucose Point of Care 223 mg/dl (65-105)
[2022-02-02] MEDS: INSULIN ASPART (*BKC) 100 UNITS/ML SUB-Q (07:51)
[2022-02-02 08:00] VITALS: BP 154/61; PULSE 64; RESP 14; TEMP 36.7; O2SAT 100
[2022-02-02 08:07] VITALS: PULSE 55
[2022-02-02] MEDS: METOPROLOL SUCCINATE EXT REL 25 MG TABCR PO (08:07)
[2022-02-02] MEDS: PANTOPRAZOLE 40 MG TABLET PO (08:07)
[2022-02-02] MEDS: SPIRONOLACTONE 25 MG TABLET PO (08:07)
[2022-02-02] MEDS: MAGNESIUM OXIDE 400 MG TABLET PO (08:07)
[2022-02-02] MEDS: MULTIVITS W-FE,MIN CHEWABLE TABLET 2 TABLET PO (08:07)
[2022-02-02] MEDS: CALCIUM CARBONATE (TUMS) 500 MG (200 MG ELEMENTAL) PO (08:08)
[2022-02-02] MEDS: amLODIPine BESYLATE 5 MG TABLET PO (08:08)
[2022-02-02] MEDS: ISOSORBIDE MONONITRATE 60 MG TAB.ER.24H 120 MG PO (08:08)
[2022-02-02] MEDS: ASCORBIC ACID 500 MG TABLET PO (08:09)
[2022-02-02] MEDS: LIDOCAINE 5% PATCH 1 PATCH TRANSDERM ×2 (08:09)
[2022-02-02] MEDS: CLOPIDOGREL BISULFATE 75 MG TABLET PO (08:09)
[2022-02-02] MEDS: LOSARTAN POTASSIUM 25 MG TABLET PO (08:09)
[2022-02-02] MEDS: CYCLOBENZAPRINE HCL 10 MG TABLET PO (08:09)
[2022-02-02] MEDS: CHOLECALCIFEROL 1,000 UNITS TABLET 6000 UNITS PO (08:09)
[2022-02-02] MEDS: hydrALAZINE HCL 50 MG TABLET 100 MG PO (08:09)
[2022-02-02] MEDS: hydroCHLOROthiazide 25 MG TABLET PO (08:09)
[2022-02-02] MEDS: DICLOFENAC SODIUM 1% 100 GM GEL (*BKC) 1 APPLIC TOPICAL ×2 (08:11→12:08)
[2022-02-02] MEDS: traMADol HCL (*CRX) 50 MG TABLET PO (08:23)
--- NOTE | 2022-02-02 08:27 | PM.PNORT ---
Progress Note: A&P Assessment and Plan (1) Trochanteric bursitis, right hip: Code(s): M70.61 - Trochanteric bursitis, right hip Status: Acute Assessment and Plan: Injection 2 days ago right hip with minimal bump in blood sugar today. Continue with physical therapy, weight bear as tolerated. Okay to discharge from orthopedic standpoint. Continue physical therapy at [facility]. (2) DJD of shoulder: Qualifiers: Osteoarthritis type: primary Laterality: left Qualified Code(s): M19.012 - Primary osteoarthritis, left shoulder Code(s): M19.019 - Primary osteoarthritis, unspecified shoulder Status: Acute Assessment and Plan: Some improvement with therapy, lidoderm patch and diclofenac gel. Recommend interval between right hip and left shoulder injection at least 3 weeks. Not sure that the risk of cortisone injection for the shoulder is worth the potential relief. Okay for discharge from orthopedic standpoint. Continue physical therapy at care facility. Agree with Lidoderm patch and diclofenac gel. Follow-up as needed. (3) Type 2 diabetes mellitus: Code(s): E11.9 - Type 2 diabetes mellitus without complications Status: Acute Assessment and Plan: Time Spent With Patient Time with patient: 15 - 25 minutes Subjective Subjective Date/Time Seen: 02/02/22 08:27 Principal diagnosis: Left shoulder pain, right hip pain Interval history: Cortisone injection right hip 2 days ago with some relief. Still has pain with weight-bearing. Blood sugar spike today to 250. Patient states last time he had cortisone injection was 400. Left shoulder pain better but still has radiating pain from the top of the shoulder to the and base of the skull and neck. Started diclofenac gel yesterday. Exam Const: General: comfortable and no acute distress Nutritional Appearance: overweight Orientation/consciousness: patient oriented x3 Limitations: no limitations HENMT: Head: normal to inspection Ears: hearing grossly normal bilaterally General nose exam: Normal external nose present Face and sinus: normal facial exam Mouth: Yes moist mucous membranes Teeth and gingiva: dentition normal Eyes: General: appearance normal, both eyes and all related structures Pupils: Equal, round and reactive pupils present EOM: EOMs intact bilaterally Neck: Neck: supple and no JVD Chest: Chest palpation & inspection: normal inspection of the chest Resp: Effort & Inspection: normal respiratory effort Cardio: Jugular venous distension: no JVD Rate: regular rate Rhythm: regular rhythm GI: Inspection: non-distended GI Palp: Yes Soft to palpation and No Tenderness to palpation present (GI) Neuro: General: gait normal Cranial nerves: Yes Equal, round and reactive pupils present and Yes Normal hearing present Cognition (Neuro): normal cognition Speech: normal speech Extrem: General: normal to inspection and full ROM Right upper extremity: normal to inspection and full ROM Left upper extremity: normal to inspection, normal capillary refill, shoulder/upper arm tenderness of the proximal humerus and over the subacromial bursa, axillary nerve sensory function normal, abnormal ROM pain with active ROM in ABduction, in flexion (120 degrees ) and in internal rotation (to hip ) and with range as follows (FF: 120 degrees// IR: to hip ) and crepitus; no ecchymosis and no unsual warmth, elbow/forearm normal to inspection and normal ROM; no tenderness and no swelling, wrist normal to inspection, normal ROM, radial pulse present and ulnar pulse present; no tenderness and no swelling and hand normal to inspection, normal capillary refill, neuromotor exam normal and neurosensory exam normal Right lower extremity: full ROM (No groin pain ) and hip/thigh Details: normal to inspection, tenderness (marked tenderness with palpation over the greater trochanter of the RIGHT hip. ) and other (Decreased strength with abduction/adduc
[2022-02-02 11:32] LABS: Glucose Point of Care 182 mg/dl (65-105)
--- NOTE | 2022-02-02 12:01 | PM.DS ---
DS: Admitting Diagnosis Discharge Date 02/02/22 Admitting Diagnosis Right Hip Pain Left Shoulder Pain DS: Discharge Diagnosis Discharge Diagnosis (1) DJD of shoulder: Qualifiers: Osteoarthritis type: primary Laterality: left Qualified Code(s): M19.012 - Primary osteoarthritis, left shoulder Code(s): M19.019 - Primary osteoarthritis, unspecified shoulder Status: Acute (2) Left shoulder pain: Qualifiers: Chronicity: acute Qualified Code(s): M25.512 - Pain in left shoulder Code(s): M25.512 - Pain in left shoulder Status: Acute (3) Trochanteric bursitis, right hip: Code(s): M70.61 - Trochanteric bursitis, right hip Status: Acute DS: Summary Hospital Course Hospital Course: 76-year-old gentleman who presented emergency room with complaints of atypical chest discomfort. Seen by cardiology, no further testing/management as per cardiology as his pain was thought be non cardiac. Orthopedic was consulted, found to have right hip bursitis s/p steroid injection. Pain was managed with topical and systemic pain meds for left shoulder pain as well. Advised to follow up with orthopedics as outpatient in few weeks for further care. Discharged to Assisted Living in stable condition. Status at Discharge Functional status at discharge: uses cane/walker Overall status at discharge: patient is progressing back to baseline Time Spent with Patient Time attestation: Total time spent providing and/or coordinating discharge services: Time spent: Greater than 30 minutes Exam Const: General: no acute distress HENMT: Mouth: Yes Abnormal oral and palatal mucosa present Eyes: EOM: EOMs intact bilaterally Neck: Neck: supple Resp: Auscultation: clear to auscultation bilaterally Cardio: Rate: regular rate GI: GI Palp: Yes Soft to palpation Auscultation: normal bowel sounds Psych: Mental Status: mental status grossly normal DS: Data Data Completed and Pending Labs on day of discharge: Labs from last 24 hours 02/02/22 02/02/22 02/02/22 11:27 07:37 05:12 PT 20.8 H INR 1.9 Sodium Potassium Chloride Carbon Dioxide Anion Gap BUN Creatinine Estim Creat Clear Calc Estimated GFR Glucose POC Capillary Glucose 182 H 223 H Calcium 02/02/22 02/01/22 02/01/22 05:12 20:15 16:27 PT INR Sodium 134 L Potassium 4.4 Chloride 102 Carbon Dioxide 27 Anion Gap 5 L BUN 39 H Creatinine 2.00 H Estim Creat Clear Calc 38 Estimated GFR 33 L Glucose 211 H POC Capillary Glucose 258 H 221 H Calcium 8.4 02/01/22 02/01/22 16:00 15:05 PT 19.1 H INR 1.7 Sodium 136 L Potassium 4.5 Chloride 102 Carbon Dioxide 28 Anion Gap 6 L BUN 38 H Creatinine 1.90 H Estim Creat Clear Calc 43 Estimated GFR 35 L Glucose 223 H POC Capillary Glucose Calcium 8.7 Discharge Plan Discharge Attending physician on discharge: Malaika Rodriguez Consulting providers: Jono Davies ; Michele Garcia Discharging Clinician: Malaika Rodriguez Anticipated Discharge Date/Time: 02/02/22 11:55 Patient Disposition: NH Half-Way/Asst Living Activity: may shower and follow weight bearing status Diet: diabetic Discharge Instructions: Orthopedic Recommendations Radha Wilson NP/Dr. Michele Garcia [phone] Weight bearing as tolerated. Continue PT/OT for lower extremity and upper extremity strengthening. Lidocaine or pain patch to left shoulder/neck and right hip. Diclofenac gel to left shoulder as directed. Follow up as needed. Contact information below. Patient Instructions: Antibiotic Form, Heart Failure (GEN), Safe Use of Anticoagulants (GEN), Blood Thinners (GEN) Stand Alone Forms: General Discharge Information Follow-up/Referrals: Radha Wilson [employer] [Advanced Practice Nurse] - Call for Appointment (Call for appt if needed for recurrent or contin
[2022-02-02 12:32] LABS: EDCOVIDSCREEN Negative (Negative)
--- NOTE | 2022-02-02 14:05 | PC.NURSE ---
On 02/02/22, the students, [Kareem Felder, Sukumar Mistry], provided care and completed [employer] documentation on this patient. I have reviewed the student's documentation and agree with the findings.
== END 2022-02-02 15:16 | DRG 558 ==
LOC: ANHED 10:13 → ANHIMU 12:43 → ANH2MED 01-28 13:39
PROVIDERS: Chiropractor; Family Medicine; Internal Medicine Cardiovascular Disease; Nurse Practitioner Adult Health; Admitting Provider Internal Medicine; Emergency Provider Emergency Medicine; PCP Registered Nurse; Visit Provider Internal Medicine
DX: M70.61 Trochanteric bursitis, right hip (principal); Z20.822 Contact with and (suspected) exposure to COVID-19; M19.012 Primary osteoarthritis, left shoulder; I12.9 Hypertensive chronic kidney disease with stage 1 through stage 4 chronic kidney disease, or unspecified chronic kidney disease; R07.89 Other chest pain; E11.22 Type 2 diabetes mellitus with diabetic chronic kidney disease; N18.9 Chronic kidney disease, unspecified; I25.10 Atherosclerotic heart disease of native coronary artery without angina pectoris; I48.91 Unspecified atrial fibrillation; E03.9 Hypothyroidism, unspecified; G47.30 Sleep apnea, unspecified; E66.01 Morbid (severe) obesity due to excess calories; Z68.35 Body mass index [BMI] 35.0-35.9, adult; Z90.49 Acquired absence of other specified parts of digestive tract; I25.2 Old myocardial infarction; Z95.5 Presence of coronary angioplasty implant and graft
CPT/HCPCS: 36415; 70450; 71045; 73030; 73502; 80048; 80053; 81001; 82948; 83690; 84132; 84484; 85025; 85610; 85730; 87426; 93005; 97110; 97116; 97161; 97165; 97530; 97535; 99239; 99285; A9270; C9803; G0378; J1815; J7030

== ENCOUNTER 2022-03-23 01:16 | Emergency (ER) | payer MEDICARE, SELFPAY ==
[2022-03-23] VITALS (7 sets, daily range): BP systolic 104–133; BP diastolic 61–74; PULSE 69–100; RESP 16–18; TEMP 36.8; O2SAT 93–96
[2022-03-23] MEDS: KETOROLAC 30 MG/ML VIAL (*BKC) IM (03:39)
[2022-03-23] MEDS: HYDROcodone/acetaminophen (*CRX) 5-325 MG TABLET 1 TAB PO (03:40)
--- NOTE | 2022-03-23 05:20 | ED.EXTPRO ---
HPI - Extremity Problem General Chief complaint: Extremity Problem,Nontraumatic Stated complaint: rt hip, lt shoulder & neck pain 6 wks Time Seen by Provider: 03/23/22 03:02 History of Present Illness HPI Narrative: Patient is a 76-year-old male who presents ER with right hip pain and left shoulder pain. Shoulder pain associated with some pain going into his left neck. This is been a recurring issue over the last 6 weeks. He has been seen in the ER and had x-rays of shoulder and hip that show osteoarthritis, he also had trochanteric bursitis. Orthopedic surgery treated with injectable steroids as well as Lidoderm patches and topical diclofenac. Reports he will occasionally have radiating pain down his left arm. No chest pain or chest pressure or shortness of breath. Pain is worse with movements of the head and neck. He has tenderness with palpation. He reports that he has tried tramadol and muscle relaxers with minimal relief. He cannot take anti-inflammatories due to the fact that he is anticoagulated. He has no recent trauma or injury. The pain increased this evening so he did come in for evaluation. Related Data Home Medications Medication Instructions Recorded Confirmed clopidogrel 75 mg tablet 75 mg PO DAILY 04/12/21 01/27/22 doxazosin 2 mg tablet (Cardura) 2 mg PO HS 04/12/21 01/27/22 insulin detemir U-100 100 unit/mL 25 unit subcut HS 04/12/21 01/27/22 subcutaneous solution (Levemir U-100 Insulin) isosorbide mononitrate 120 mg 120 mg PO DAILY 04/12/21 01/27/22 tablet,extended release 24 hr acetaminophen 325 mg tablet 325 mg PO PRN PRN Pain 01/27/22 01/27/22 alirocumab 150 mg/mL subcutaneous 150 mg subcut [id number] 01/27/22 01/27/22 pen injector (Praluent Pen) amiodarone 200 mg tablet 200 mg PO HS 01/27/22 01/27/22 amlodipine 5 mg tablet 5 mg PO DAILY 01/27/22 01/27/22 ascorbate calcium (vitamin C) 500 500 mg PO DAILY 01/27/22 01/27/22 mg tablet calcium carbonate 200 mg calcium 200 mg PO BID PRN Acid Reflux 01/27/22 01/27/22 (500 mg) chewable tablet (Antacid (calcium carbonate)) cholecalciferol (vitamin D3) 50 150 mcg PO DAILY 01/27/22 01/27/22 mcg (2,000 unit) chewable tablet hydralazine 100 mg tablet 100 mg PO BID 01/27/22 01/28/22 hydrochlorothiazide 25 mg tablet 25 mg PO DAILY 01/27/22 01/27/22 insulin aspart U-100 100 unit/mL 25 unit subcut TIDWM 01/27/22 01/27/22 (3 mL) subcutaneous pen (Novolog Flexpen U-100 Insulin aspart) levothyroxine 112 mcg tablet 112 mcg PO DAILY 01/27/22 01/27/22 (Euthyrox) losartan 50 mg tablet 25 mg PO DAILY 01/27/22 01/27/22 magnesium oxide 400 mg (241.3 mg 400 mg PO BID 01/27/22 01/27/22 magnesium) tablet metoprolol succinate 25 mg 25 mg PO DAILY 01/27/22 01/27/22 tablet,extended release 24 hr multivitamin with minerals-folic 2 tablet PO DAILY 01/27/22 01/27/22 acid 200 mcg chewable tablet (Adult Multivitamin Gummies) omega-3 fatty acids-vitamin E 1,000 cap PO HS 01/27/22 01/27/22 1,000 mg capsule pantoprazole 40 mg tablet,delayed 40 mg PO DAILY 01/27/22 01/27/22 release spironolactone 25 mg tablet 25 mg PO DAILY 01/27/22 01/27/22 warfarin 5 mg tablet 5 mg PO 3XW 01/27/22 01/28/22 warfarin 6 mg tablet 6 mg PO 4XW 01/27/22 01/28/22 Allergies Allergy/AdvReac Type Severity Reaction Status Date / Time exenatide [From Byetta] AdvReac Gastrointestinal Verified 01/27/22 14:23 Upset Qcxpabh-RZP-FtS Reductase AdvReac Cramping Verified 08/26/21 15:10 Inhibitor of the [Hrruaqx-Mst-Vam Reductase Muscles Inhibitor] Review of Systems Review of Systems: All systems reviewed & are unremarkable except as noted in HPI and below Constitutional: Constitutional: Denies chills and Denies fever(s) Cardiovascular: Cardiovascular: Denies chest pain, Denies rapid heart rate and Denies radiating jaw, neck or arm pain Respiratory: Respiratory: Denies cough and Denies dyspnea Musculoskeletal: Musculoskeletal: Denies back pain, Reports a
== END 2022-03-23 06:19 | disposition home or self-care (01) ==
PROVIDERS: Emergency Provider Emergency Medicine; PCP Registered Nurse
DX: M25.512 Pain in left shoulder (principal); M25.551 Pain in right hip; G89.29 Other chronic pain; I48.91 Unspecified atrial fibrillation; I25.10 Atherosclerotic heart disease of native coronary artery without angina pectoris; E11.22 Type 2 diabetes mellitus with diabetic chronic kidney disease; I12.9 Hypertensive chronic kidney disease with stage 1 through stage 4 chronic kidney disease, or unspecified chronic kidney disease; N18.9 Chronic kidney disease, unspecified; E03.9 Hypothyroidism, unspecified; I25.2 Old myocardial infarction; E66.01 Morbid (severe) obesity due to excess calories; Z68.38 Body mass index [BMI] 38.0-38.9, adult; G47.30 Sleep apnea, unspecified; M16.11 Unilateral primary osteoarthritis, right hip; M19.012 Primary osteoarthritis, left shoulder; Z87.891 Personal history of nicotine dependence; Z79.4 Long term (current) use of insulin; Z79.01 Long term (current) use of anticoagulants
CPT/HCPCS: 96372; 99283; 99284; A9270; J1885

== ENCOUNTER 2022-10-24 09:14 | Outpatient (CLI) | payer MEDICARE, MEDICAID, SELFPAY ==
--- NOTE | ~2022-10-24 | CT_ITS ---
EXAMINATION: CT lumbar spine wo con DATE: 10/24/2022 09:42 INDICATION: Lumbar radiculopathy. TECHNIQUE: Computed tomography (CT) of the lumbar spine was performed without intravenous contrast. A utomated exposure control and iterative reconstruction technique were employed. The dose-length produ ct was 1245.72 mGy-cm. COMPARISON: None FINDINGS: There is 5 degrees levocurvature of lumbar spine. There is 2 mm retrolisthesis of L2 on L3. There is mild chronic anterior wedging of T11 and T12 vertebral bodies, likely physiologic. There is mildly decreased disc height at L1-L2, severely decreased disc height at L2-L3, mildly decreased dis c height at L3-L4, and moderately decreased disc height at L4-L5. The following disc levels are speci fically discussed: L1-L2: The disc is bulging. There is moderate bilateral facet joint osteoarthritis. There is mild jayesh ateral neural foraminal stenosis. There is mild central canal stenosis. L2-L3: The disc is bulging. There is mild bilateral facet joint osteoarthritis. There is moderate jayesh ateral neural foraminal stenosis. There is mild central canal stenosis. L3-L4: The disc is bulging. There is mild lateral facet joint osteoarthritis. There is mild right and moderate left neural foraminal stenosis. There is mild central canal stenosis. L4-L5: The disc is bulging. There is severe bilateral facet joint osteoarthritis. There is mild right and moderate left neural foraminal stenosis. There is mild central canal stenosis. L5-S1: The disc is bulging. There is severe bilateral facet joint osteoarthritis. There is mild bilat eral neural foraminal stenosis. There is mild central canal stenosis. IMPRESSION: 1. Severe lumbar spondylosis. Reviewed, dictated and finalized at location A. [employer]
== END 2022-10-24 09:15 | disposition home or self-care (01) ==
PROVIDERS: PCP Registered Nurse; Visit Provider Registered Nurse
DX: M54.16 Radiculopathy, lumbar region (principal); M43.06 Spondylolysis, lumbar region
CPT/HCPCS: 72131

== ENCOUNTER 2022-12-19 09:17 | Outpatient (CLI) | payer MEDICARE, MEDICAID, SELFPAY ==
--- NOTE | 2022-12-19 | ECHO_ITS ---
Patient Info Name: Nigel Wang Age: 77 years : 1945 Gender: Male Ht: 72 in Wt: 265 lbs BSA: 2.51 m2 HR: 68 bpm BP: 142 / 75 mmHg Heart Rhythm: Atrial Fibrillation Technical Quality: Fair Exam Date: 12/19/2022 9:48 AM Exam Location: [facility] Patient Status: Outpatient Admit Date: 12/19/2022 Staff Ordering Physician: Summer, Raymond Arias MD Accessories Repairer: Marimar Wagner RDCS Attending Provider: Naif, Raymond Arias MD Referring Physician: Summer DIAZ; Exam Type: CA echo doppler color flow Study Info Indications I48.0 - Paroxysmal atrial fibrillation Complete two-dimensional, color flow and Doppler transthoracic echocardiogram is performed. Summary 1. Complete two-dimensional, color flow and Doppler transthoracic echocardiogram is performed. 2. Left ventricular chamber dimension is normal. 3. Left ventricular systolic function is normal, estimated at 55-60%. 4. There is mildly increased left ventricular wall thickness. 5. Global longitudinal strain is abnormal at -12 %. 6. Right ventricular systolic function is normal. 7. Left atrial chamber dimension is moderately enlarged. 8. Right atrial chamber dimension is mildly enlarged. 9. There is moderate aortic valve calcification. 10. There is mild aortic valve stenosis with a peak velocity of 245 cm/s, mean gradient of 12 mmHg, and aortic valve area of 1.9 cm2. 11. The mitral valve annulus is mildly calcified. 12. There is mild mitral valve regurgitation. 13. There is mild tricuspid valve regurgitation. 14. Pulmonary hypertension with estimated PASP of 52mmHg. Left Ventricle Left ventricular chamber dimension is normal. Left ventricular systolic function is normal, estimated at 55-60%. There is mildly increased left ventricular wall thickness. Global longitudinal strain is abnormal at -12 %. Right Ventricle Right ventricular chamber dimension is normal. Right ventricular systolic function is normal. Left Atria Left atrial chamber dimension is moderately enlarged. Right Atria Right atrial chamber dimension is mildly enlarged. Atrial Septum Intact interatrial septum visualized by color flow imaging. Aortic Valve The aortic valve is trileaflet. There is mild aortic valve stenosis with a peak velocity of 245 cm/s, mean gradient of 12 mmHg, and aortic valve area of 1.9 cm2. There is no aortic valve regurgitation. There is moderate aortic valve calcification. Pulmonic Valve The pulmonic valve is not well visualized. Mitral Valve The mitral valve has normal leaflets. There is mild mitral valve regurgitation. The mitral valve annulus is mildly calcified. Tricuspid Valve There is mild tricuspid valve regurgitation. Pericardium/Pleural There is small pericardial effusion. Inferior Vena Cava Dilated inferior vena cava with <50% collapse upon inspiration consistent with elevated right atrial pressure, 15 mmHg. Aorta The aortic root size at the sinus of Valsalva is normal. Left Ventricular Outflow Tract Name Value Normal LVOT 2D LVOT Diameter 2.2 cm LVOT Doppler LVOT Peak Gradient 6 mmHg
== END 2022-12-19 09:18 | disposition home or self-care (01) ==
LOC: ANHCARD 09:19
PROVIDERS: PCP Registered Nurse; Visit Provider Internal Medicine Cardiovascular Disease
DX: I48.0 Paroxysmal atrial fibrillation (principal); R93.1 Abnormal findings on diagnostic imaging of heart and coronary circulation; I08.3 Combined rheumatic disorders of mitral, aortic and tricuspid valves
CPT/HCPCS: 93306

== ENCOUNTER 2022-12-29 11:35 | Inpatient (IN) | payer MEDICARE, MEDICAID, SELFPAY ==
[2022-12-29] VITALS (28 sets, daily range): BP systolic 128–167; BP diastolic 67–98; PULSE 74–100; RESP 16–26; TEMP 36.4–36.6; O2SAT 91–97; BMI 36.6
--- NOTE | ~2022-12-29 | XR_ITS ---
EXAMINATION: XR chest 1V portable DATE: 12/30/2022 00:39 INDICATION: Increasing shortness of breath TECHNIQUE: frontal view of the chest was obtained. COMPARISON: Chest radiograph dated 12/29/2022 FINDINGS: Increase in the previously lower lung interstitial and mild airspace opacities now extending more cep halad throughout the right lung and into the left midlung zone. No pneumothorax. Likely small bilater al pleural effusions. Linear discoid atelectasis/scarring at the lateral left midlung zone. The cardi omediastinal silhouette is normal. IMPRESSION: 1. Increasing bilateral lung disease which could represent worsening mild to moderate pulmonary edema and/or pneumonia. 2. Likely small bilateral pleural effusions. Reviewed, dictated and finalized at location A. [place] IMPRESSION: 1. Increasing bilateral lung disease which could represent worsening mild to mo derate pulmonary edema and/or pneumonia. 2. Likely small bilateral pleural effusions.
--- NOTE | ~2022-12-29 | XR_ITS ---
Clinical Indication: Pneumonia AP and lateral views of the chest: Comparison: 12/30/2022 Findings: There is been near complete interval resolution of airspace disease as compared to prior ex am. Cardiomediastinal silhouette is within normal limits. Bones and soft tissues are unremarkable. Impression: Lungs are essentially clear. Essentially complete resolution of pulmonary disease since prior exam. Reviewed, dictated and finalized at location . Impression: Lungs are essentially clear. Essentially complete resolution of pulmonary disea se since prior exam.
--- NOTE | ~2022-12-29 | XR_ITS ---
EXAMINATION: XR chest 2V DATE: 12/29/2022 12:20 INDICATION: Shortness of breath. TECHNIQUE: Frontal and lateral views of the chest were obtained. COMPARISON: Chest single view 01/27/2022, chest CT 05/07/2021 FINDINGS: There is discoid atelectasis in left mid and lower lung zones. There is interstitial patter n in the lungs with a lower lung predominance, consistent mild pulmonary edema. There are small pleur al effusions. No pneumothorax. The heart size is normal. IMPRESSION: 1. Mild pulmonary edema. 2. Small pleural effusions. Reviewed, dictated and finalized at location A. [employer]
--- NOTE | ~2022-12-29 | US_ITS ---
Renal-Bladder ultrasound Clinical History: Elevated creatinine Technique: Real-time sonographic imaging of the kidneys and urinary bladder was performed. Findings: The right kidney measures 14.2 cm in length and the left kidney measures 14.0 cm. There is no hydronephrosis or renal calculus identified. Renal cortical echogenicity is within normal limits. Right renal cysts are noted. The urinary bladder is moderately distended at the time of this exam. No intraluminal echoes are iden tified. No abnormal wall thickening is seen. Impression: No significant abnormality seen. Reviewed, dictated and finalized at location . Impression: No significant abnormality seen.
--- NOTE | 2022-12-29 11:41 | ECG_ITS ---
Measurements Intervals [place] Rate: 88 P: WI: 0 QRS: 16 QRSD: 125 T: 56 QT: 419 QTc: 508 Interpretive Statements ATRIAL FIBRILLATION INTRAVENTRICULAR CONDUCTION DELAY PROLONGED QT INTERVAL BASELINE ARTIFACT- I, II, III, AVR, AVL, AVF ABNORMAL ECG COMPARED TO ECG 01/27/2022 09:39:58 ATRIAL FIBRILLATION NOW PRESENT Electronically Signed On 12-29-2022 13:36:03 [employer] MARKETING STRATEGIST by Raghav Robins D.O.
--- NOTE | 2022-12-29 12:02 | ED.GENADULT ---
HPI - General Adult General Chief complaint: Shortness of Breath/Dyspnea Stated complaint: increased swelling to bilat feet Time Seen by Provider: 12/29/22 11:36 History of Present Illness HPI narrative: 77-year-old male with history of MS and congestive heart failure presented to the emergency department for evaluation of increased congestion, hypoxia and increased lower extremity edema. Patient states he has been on antibiotics for a suspected pneumonia since Sunday. Patient was found to be hypoxic today and was placed on oxygen by EMS. Patient was saturating at 90% on room air during my examination. Patient was placed on 2 L of oxygen by nasal cannula. Patient does have a prior history of MS and reports he has 10 stents. Patient reports reproducible left-sided chest pain that is worsened with cough and is reproducible to palpation. Related Data Home Medications Medication Instructions Recorded Confirmed clopidogrel 75 mg tablet 75 mg PO DAILY 04/12/21 12/29/22 doxazosin 2 mg tablet (Cardura) 2 mg PO HS 04/12/21 12/29/22 insulin detemir U-100 100 unit/mL 25 unit subcut HS 04/12/21 12/29/22 subcutaneous solution (Levemir U-100 Insulin) isosorbide mononitrate 120 mg 120 mg PO DAILY 04/12/21 12/29/22 tablet,extended release 24 hr acetaminophen 325 mg tablet 325 mg PO Q6H PRN Pain 01/27/22 12/29/22 alirocumab 150 mg/mL subcutaneous 150 mg subcut MONTHLY 01/27/22 12/29/22 pen injector (Praluent Pen) amiodarone 200 mg tablet 200 mg PO DAILY 01/27/22 12/29/22 amlodipine 5 mg tablet 10 mg PO DAILY 01/27/22 12/29/22 ascorbate calcium (vitamin C) 500 500 mg PO DAILY 01/27/22 12/29/22 mg tablet hydralazine 100 mg tablet 100 mg PO Q8H PRN Blood Pressure 01/27/22 12/29/22 levothyroxine 112 mcg tablet 88 mcg PO DAILY 01/27/22 12/29/22 (Euthyrox) losartan 50 mg tablet 25 mg PO DAILY 01/27/22 12/29/22 magnesium oxide 400 mg (241.3 mg 400 mg PO BID 01/27/22 12/29/22 magnesium) tablet metoprolol succinate 25 mg 25 mg PO DAILY 01/27/22 12/29/22 tablet,extended release 24 hr omega-3 fatty acids-vitamin E 1,000 cap PO HS 01/27/22 12/29/22 1,000 mg capsule pantoprazole 40 mg tablet,delayed 40 mg PO DAILY 01/27/22 12/29/22 release spironolactone 25 mg tablet 25 mg PO DAILY 01/27/22 12/29/22 warfarin 5 mg tablet 5 mg PO HS 01/27/22 12/29/22 allopurinol 300 mg tablet 300 mg PO DAILY 12/29/22 12/29/22 azithromycin 250 mg tablet 250 mg PO DAILY 12/29/22 12/29/22 cefuroxime axetil 250 mg tablet 250 mg PO BID 12/29/22 12/29/22 glipizide 10 mg tablet 10 mg PO BID 12/29/22 12/29/22 hydrocodone 5 mg-acetaminophen 325 5 - 325 tablet PO Q6H PRN Pain 12/29/22 12/29/22 mg tablet Allergies Allergy/AdvReac Type Severity Reaction Status Date / Time exenatide [From Byetta] AdvReac Gastrointestinal Verified 01/27/22 14:23 Upset Meqjfxi-RDJ-FhV Reductase AdvReac Cramping Verified 08/26/21 15:10 Inhibitor of the [Mpgeqfw-Uku-Hea Reductase Muscles Inhibitor] Review of Systems Review of Systems: CONSTITUTIONAL: Denies fever, chills, or sweats. EYES: Denies visual changes, redness, or discharge. ENT: Denies rhinorrhea, congestion, sore throat, or otalgia. CARDIOVASCULAR: See HPI RESPIRATORY: Denies cough or dyspnea. GASTROINTESTINAL: Denies abdominal pain, nausea, vomiting, or diarrhea. GENITOURINARY: Denies dysuria or hematuria. SKIN: Denies rash or itching. MUSCULOSKELETAL: Denies back pain, joint pain, or myalgia. NEUROLOGIC: Denies headache, numbness, or weakness. [facility] Past Medical History Medical History (Updated 12/29/22 @ 17:14 by Claudia Arndt PA-C) Aortic stenosis, mild Atrial fibrillation Chronic anticoagulation Chronic kidney disease Coronary artery disease Heart failure with preserved ejection fraction Hypertension Hypothyroidism Insulin dependent type 2 diabetes mellitus Myocardial infarct, old Obstructive sleep apnea Pulmonary hypertension Surgical History Surgical History (Up
[2022-12-29 12:55] LABS: Basophils Absolute Auto 0.1 K/mm3 (0.0-0.1); Basophils Percent Auto 0.7 % (0.2-1.2); Eosinophils Absolute Auto 0.3 K/mm3 (0-0.3); Eosinophils Percent Auto 3.2 % (0-4.4); Hematocrit 32.5 % (42.0-52.0); Hemoglobin 10.1 g/dL (14.0-18.0); Immature Granulocyte Absolute 0.03 K/mm3 (0.00-0.031); Immature Granulocyte Percent A 0.4 % (0-0.5); Lymphocytes Absolute Auto 1.21 K/mm3 (0.9-3.2); Lymphocytes Percent Auto 14.7 % (18.3-44.2); Mean Corpuscular HGB Conc 31.1 g/dl (32-36); Mean Corpuscular Hemoglobin 31.6 pg (26-34); Mean Corpuscular Volume 101.6 fl (80-100); Mean Platelet Volume 10.1 fl (7.4-10.4); Monocytes Absolute Auto 0.6 K/mm3 (0.1-0.6); Monocytes Percent Auto 7.4 % (2.6-8.5); Neutrophils Absolute Auto 6.1 K/mm3 (1.3-6.7); Neutrophils Percent Auto 73.6 % (45.5-73.1); Platelet Count Result 237 k/mm3 (150-375); Red Cell Distribution Width 15.6 % (11.5-14.5); White Blood Count 8.2 K/mm3 (4.5-10.0)
[2022-12-29 13:03] LABS: Alanine Aminotransferase 17 U/L (6-50); Albumin Level 3.9 g/dL (3.5-5.1); Alkaline Phosphatase 90 U/L (38-126); Anion Gap 7 mmol/L (8-16); Aspartate Amino Transferase 19 U/L (17-59); Bilirubin,Total 0.4 mg/dL (0.2-1.3); Blood Urea Nitrogen 45 mg/dL (9-20); Calcium 8.7 mg/dL (8.4-10.2); Carbon Dioxide 23 mmol/L (22-30); Chloride 107 mmol/L (98-107); Estimated CRCL calculation 35 ml/min; Estimated Glomerular Filt Rate 29; Glucose 179 mg/dL (65-110); Potassium 4.6 mmol/L (3.4-5.0); Sodium 137 mmol/L (137-145)
[2022-12-29 13:15] LABS: NT Pro B Type Natriuretic Pept 3920 pg/mL (19.9-100); Troponin I 0.022 ng/mL (0.000-0.034)
[2022-12-29 13:25] LABS: INR 2.8; Partial Thromboplastin Time 48.8 SECONDS (22.3-36.8); Prothrombin Time 28.4 Seconds (11.1-14.7)
[2022-12-29 13:40] LABS: Influenza A QL RT-PCR Negative (Negative); Influenza B QL RT-PCR Negative (Negative); RSV RNA, RT-PCR Negative (Negative); SARS-CoV-2 RNA PCR Negative
[2022-12-29] MEDS: FUROSEMIDE INJ 40 MG/4 ML VIAL IV PUSH ×2 (14:16→20:30)
[2022-12-29] MEDS: MORPHINE SULFATE (*CRX) 4 MG/ML INJ IV PUSH (14:16)
[2022-12-29 14:31] LABS: Appearance Urine Clear (Clear); Bacteria Urine None Seen /hpf; Bilirubin Urine Negative (Negative); Blood Urine Negative (Negative); Color Urine Yellow (Yellow); Glucose Urine UA Negative (Negative); Ketones Urine Negative (Negative); Leukocyte Esterase Ur Negative LEU/UL (Negative); Nitrate Urine Negative (Negative); Non Pathogenic Casts 0-2; Protein Urine 3+ mg/dL (Negative); RBC Urine 0-2 /hpf (0-2); Specific Grav Ur 1.015 (1.001-1.035); Squamous Epithelial Cell Urine None seen /hpf (Few); Urobilinogen Urine 0.2 mg/dL (<2.0); WBC Urine 0-5 /hpf; pH Urine 5.5 (5.0-9.0)
[2022-12-29 14:36] LABS: Add Urine Microscopic? YES
[2022-12-29 15:27] LABS: Troponin I 0.022 ng/mL (0.000-0.034)
--- NOTE | 2022-12-29 16:45 | PM.IMHP ---
H&P: HPI History of Present Illness Date/Time: 12/29/22 16:45 Chief Complaint: Shortness of breath and swelling. Narrative: This is a pleasant 77-year-old male with history of atrial fibrillation on chronic anticoagulation, coronary artery disease, chronic kidney disease, insulin-dependent diabetes, hypertension, dyslipidemia, sleep apnea (documented however patient denies), chronic anemia, and hypothyroidism who presented to the emergency department via EMS from [facility] for evaluation of shortness of breath and swelling. Patient provides the following history. Over the past 2.5 weeks he has developed shortness of breath, lower extremity edema, and he reports an 8 lb weight gain. He has an occasional cough which has thus far been nonproductive up until last night when he had a coughing jag in which she coughed up and eventually vomited up a large amount of mostly clear mucous though some of the mucus appeared to be light green. Earlier this week he was started on cefuroxime and azithromycin for presumed pneumonia. He was sent in today due to continued shortness of breath and increasing lower extremity edema. He had some chills today but no fever or sweats. He denies headache, neck ache, sinus congestion, sore throat, nausea, vomiting (aside from post-tussive emesis last night), and diarrhea. He denies overt orthopnea, paroxysmal nocturnal dyspnea, and chest pain. He was afebrile on arrival to the ED with stable vital signs. He is currently on 2 L nasal cannula as his SpO2 was around 90% on room air. Pertinent labs include a WBC of 8.2 INR 2.8, sodium 137, potassium 4.6, BUN 45, creatinine 2.20, proBNP 3920, troponin 0.022. Urinalysis showed 3+ protein and it looks as though he has chronic proteinuria. Chest x-ray shows mild pulmonary edema and small pleural effusions. EKG showed atrial fibrillation, rate controlled, with intraventricular conduction delay and prolonged QT with a QTc of 508. He is being admitted in this setting for diuresis. Of known echocardiogram done on 12/19/2022 showed normal LV size and function with an EF of 55 to 60%, increased LV wall thickness, normal right ventricular function, pulmonary hypertension with an estimated PASP of 52 mmHg, and mild aortic valve stenosis with a valve area of 1.9 cm2. Review of Systems Review of Systems: Twelve systems were reviewed and are negative except for as per HPI. 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 History of percutaneous coronary intervention Family History Family History Father Cerebrovascular accident Diabetes mellitus Mother Diabetes mellitus Social History Social History (Updated 12/29/22 @ 16:59 by Claudia Arndt PA-C) Social History: Healthcare power of traffic law attorney: Bhanu Widden, son. Code status: Do not resuscitate. Years smoked: 20 Smoking status: Former smoker Tobacco type: cigars Second hand tobacco smoke exposure: No Additional smoking assessment comments: smoked 25 years ago Alcohol intake: current Substance use: current Substance use type: painkillers Lack of Transportation: No Lack of Food: Never True Current Housing: Decline to Answer Concerned About Future Housing: Decline to Answer Difficulty Paying Gas/Electric Bills: Decline to Answer Difficulty Paying for Meds: Decline to
[2022-12-29 17:28] LABS: Glucose Point of Care 139 mg/dl (65-105)
--- NOTE | 2022-12-29 17:39 | ADMGEN ---
This patient, Nigel Wang, was admitted to Medical Room 349-01. Patient/family oriented to hospital policies and general routines including ID bracelet, bed and alarms, visiting hours, pain management, procedures, bathroom and other care routines, personal items, smoking policy, room service/diet, and visiting hours. Information on how to activate the Rapid Response Team has been discussed. Patient/Family are encouraged to report perceived risks to care and to ask questions if they do not understand what they are told or what they should do.
[2022-12-29 21:09] LABS: Glucose Point of Care 213 mg/dl (65-105)
[2022-12-29] MEDS: hydrALAZINE HCL 25 MG TABLET PO (23:22)
[2022-12-29] MEDS: DOXAZOSIN MESYLATE 2 MG TABLET PO (23:22)
[2022-12-29] MEDS: VITAMIN E 400 UNIT CAPSULE PO (23:22)
[2022-12-29] MEDS: WARFARIN (*PBKC) 5 MG TABLET PO (23:22)
[2022-12-29] MEDS: OMEGA 3 POLYUNSAT FATTY ACIDS 1 GM CAP PO (23:23)
[2022-12-29] MEDS: INSULIN GLARGINE (*BKC) 100 UNITS/ML 25 UNITS SUB-Q (23:28)
[2022-12-30] VITALS (16 sets, daily range): BP systolic 108–136; BP diastolic 71–86; PULSE 55–106; RESP 20–22; TEMP 36.1–36.6; O2SAT 92–97
[2022-12-30] MEDS: BUMETANIDE INJ 1 MG/4 ML VIAL IV PUSH (00:14)
[2022-12-30] MEDS: ALBUTEROL SULFATE NEB 2.5 MG/3 ML INH INHALATION (00:15)
[2022-12-30] MEDS: LORazepam INJ (*CRX) 2 MG/ML VIAL (00:56)
--- NOTE | 2022-12-30 01:43 | PCRCNOTE ---
Patient refused apnea link, stating he knows he has sleep apnea. He has a cpap at home, which he is noncompliant.
[2022-12-30 05:34] LABS: Hematocrit 33.7 % (42.0-52.0); Hemoglobin 10.3 g/dL (14.0-18.0); Mean Corpuscular HGB Conc 30.6 g/dl (32-36); Mean Corpuscular Hemoglobin 31.2 pg (26-34); Mean Corpuscular Volume 102.1 fl (80-100); Platelet Count Result 232 k/mm3 (150-375); Red Cell Distribution Width 15.7 % (11.5-14.5)
[2022-12-30 05:45] LABS: INR 2.6; Prothrombin Time 26.7 Seconds (11.1-14.7)
[2022-12-30] MEDS: LEVOTHYROXINE SODIUM 88 MCG TABLET PO (05:52)
[2022-12-30 05:59] LABS: Alanine Aminotransferase 17 U/L (6-50); Alkaline Phosphatase 91 U/L (38-126); Anion Gap 7 mmol/L (8-16); Aspartate Amino Transferase 19 U/L (17-59); Bilirubin,Total 0.5 mg/dL (0.2-1.3); Blood Urea Nitrogen 45 mg/dL (9-20); Calcium 8.9 mg/dL (8.4-10.2); Carbon Dioxide 27 mmol/L (22-30); Chloride 103 mmol/L (98-107); Estimated CRCL calculation 32 ml/min; Estimated Glomerular Filt Rate 26; Glucose 183 mg/dL (65-110); Magnesium 2.1 mg/dL (1.6-2.3); Phosphorus 4.1 mg/dL (2.5-4.5); Potassium 4.6 mmol/L (3.4-5.0); Sodium 137 mmol/L (137-145)
[2022-12-30 08:34] LABS: Glucose Point of Care 153 mg/dl (65-105)
[2022-12-30] MEDS: AMIODARONE HCL 200 MG TABLET PO (08:42)
[2022-12-30] MEDS: LOSARTAN POTASSIUM 25 MG TABLET PO (08:43)
[2022-12-30] MEDS: glipiZIDE 5 MG TABLET 10 MG PO (08:43)
[2022-12-30] MEDS: amLODIPine BESYLATE 5 MG TABLET 10 MG PO (08:43)
[2022-12-30] MEDS: PANTOPRAZOLE 40 MG TABLET PO (08:43)
[2022-12-30] MEDS: SPIRONOLACTONE 25 MG TABLET PO (08:43)
[2022-12-30] MEDS: CLOPIDOGREL BISULFATE 75 MG TABLET PO (08:44)
[2022-12-30] MEDS: MAGNESIUM OXIDE 400 MG TABLET PO ×2 (08:44→16:55)
[2022-12-30] MEDS: METOPROLOL SUCCINATE EXT REL 25 MG TABCR PO (08:44)
[2022-12-30] MEDS: ASCORBIC ACID 500 MG TABLET PO (08:44)
[2022-12-30] MEDS: hydrALAZINE HCL 50 MG TABLET 100 MG PO (08:44)
[2022-12-30] MEDS: ISOSORBIDE MONONITRATE 60 MG TAB.ER.24H 120 MG PO (08:45)
[2022-12-30] MEDS: FUROSEMIDE INJ 40 MG/4 ML VIAL IV PUSH ×2 (08:45→20:38)
--- NOTE | 2022-12-30 09:17 | PM.CNNEP ---
Assessment and Plan Assessment and plan (1) Chronic kidney disease, stage 3b: Code(s): N18.32 - Chronic kidney disease, stage 3b Status: Acute Assessment and Plan: The patient has chronic kidney disease stage IIIB. He is seen by a surgical appliance fitter as an outpatient. Most likely this is caused by diabetes and hypertension. He has stage IIIB chronic kidney disease according to his surgical appliance fitter. This would be in keeping with his chronic creatinine of around 2. Now his creatinine has risen to 2.2 and then 2.4. He did receive diuretics yesterday and made some urine but not a lot. Possibly the higher creatinine is because of this. He did receive antibiotics on Sunday. It seems a little early for allergic interstitial nephritis, he has no rash, and no peripheral eosinophilia. So I doubt if this is AIN. If he had walking pneumonia on Sunday it does not seem to appear on chest x-ray today, and his white count not that high and has no fever. His urine is bland. So I doubt of infection is playing a role here. Obstruction could be playing a role. Will check a renal ultrasound. Just lab variation could cause of bump in creatinine. Will repeat this tomorrow as well. Rhabdomyolysis is always a possibility. Will check for this. So will check a renal ultrasound, urine electrolytes, and fractional excretion of urea. (2) Volume overload: Code(s): E87.70 - Fluid overload, unspecified Status: Acute Assessment and Plan: The patient is getting diuretics. He is still fairly short of breath. He had an echo on December 19 showing normal LVEF but diastolic dysfunction, and pulmonary hypertension. Perhaps the sleep apnea is an issue here. An apnea link was ordered. Even though his creatinine is a little bit higher I agree with continued diuretics. Will give a single dose of metolazone to see if we can get the urine output going. (3) Atrial fibrillation: Code(s): I48.91 - Unspecified atrial fibrillation Status: Acute Assessment and Plan: His rate is pretty well controlled (4) Obstructive sleep apnea: Code(s): G47.33 - Obstructive sleep apnea (adult) (pediatric) Status: Acute Assessment and Plan: Apnea link has been ordered (5) Insulin dependent type 2 diabetes mellitus: Code(s): E11.9 - Type 2 diabetes mellitus without complications; Z79.4 - nursing home (current) use of insulin Status: Acute Assessment and Plan: Is on Accu-Cheks and sliding scale insulin per hospitalists. (6) Hypertension: Code(s): I10 - Essential (primary) hypertension Status: Acute Assessment and Plan: His blood pressure ranges from 128 to 152. It should improve with diuresis. History of Present Illness Reason for Consult Consult date: 12/30/22 Chief Complaint Chief complaint: CHF/Hypoxia History of Present Illness Narrative: Nigel is a very pleasant 77-year-old gentleman who has multiple medical problems including chronic kidney disease stage IIIB but he does not know his baseline creatinine, managed by Dr. Keller in [place]. He also has diabetes for 10-20 years, hypertension for 20 years plus, hyperlipidemia, sleep apnea but does not use a CPAP machine, anemia, hypothyroidism, heart attack in the past, aortic stenosis which is mild, atrial fibrillation, chronic anticoagulation, and pulmonary hypertension. The patient has been seeing his surgical appliance fitter fairly routinely. His numbers worsen in the past year or so and then the last 2 times his numbers were relatively stable. We do not have these values. At [facility], a year ago, his creatinine seemed to be running around 1.8-2. On admission to this hospital it was 2.2 and today was 2.4 so renal consultation was requested. He was admitted for shortness of breath. He says this is been going on for a week or so. On Sunday he went to his primary care physician who said it was walking pneumonia and
[2022-12-30 12:39] LABS: Glucose Point of Care 88 mg/dl (65-105)
--- NOTE | 2022-12-30 15:15 | PM.IMPN ---
Progress Note: A&P Assessment and Plan (1) Diastolic congestive heart failure: Code(s): I50.30 - Unspecified diastolic (congestive) heart failure Status: Acute (2) Heart failure with preserved ejection fraction: Code(s): I50.30 - Unspecified diastolic (congestive) heart failure Status: Acute (3) Chronic kidney disease: Code(s): N18.9 - Chronic kidney disease, unspecified Status: Acute (4) Proteinuria: Code(s): R80.9 - Proteinuria, unspecified Status: Acute (5) Atrial fibrillation: Code(s): I48.91 - Unspecified atrial fibrillation Status: Acute (6) Chronic anticoagulation: Code(s): Z79.01 - termite inspector (current) use of anticoagulants Status: Acute (7) Obstructive sleep apnea: Code(s): G47.33 - Obstructive sleep apnea (adult) (pediatric) Status: Acute (8) Insulin dependent type 2 diabetes mellitus: Code(s): E11.9 - Type 2 diabetes mellitus without complications; Z79.4 - termite inspector (current) use of insulin Status: Acute (9) Hypertension: Code(s): I10 - Essential (primary) hypertension Status: Acute (10) Hypothyroidism: Code(s): E03.9 - Hypothyroidism, unspecified Status: Acute Plan The patient presented to the emergency department for evaluation of shortness of breath, increasing edema, and weight gain over the past 2.5 weeks. # acute on chronic diastolic congestive heart failure: Continue diuresis as ordered echo 12/19/2022 EF 55-60% mild aortic stenosis no significant valvular abnormality pulmonary hypertension with PASP of 52 mm Hg # acute on chronic renal failure stage IIIB: baseline creatinine around 2. Nephrology on board. Monitor renal function with diuresis clinically volume overloaded . Renal ultrasound # protein urea urine with 3+ protein. Will order quantitative test # EILEEN does not use his CPAP at night # hypertension # atrial fibrillation chronic on amiodarone. Warfarin with therapeutic INR # type 2 diabetes on insulin continue home medication Accu-Cheks monitoring check A1c Will hold glipizide. Lower Lantus # hypothyroidism # hyperlipidemia # chronic anticoagulation with warfarin # DVT prophylaxis warfarin with therapeutic INR # code status do not resuscitate Subjective Date/time seen: 12/30/22 15:15 Interval history: no overnight events. Patient reports shortness of breath on exertion. Leg swelling has worsened. Cough with some expectoration. No chest pain Review of Systems Review of Systems: All systems reviewed & are unremarkable except as noted in HPI and below Exam Narrative: APPEARANCE: Well appearing, no distress, well-nourished. HEAD: normocephalic, atraumatic. EYES: PERRLA/EOMI, conjunctivae clear. NOSE: Normal no drainage NECK: Supple. No adenopathy, no masses. RESPIRATORY: Airway patent, respirations nonlabored. Diminished breath sounds bilaterally, no rales, rhonchi, wheezing. CARDIOVASCULAR: Regular rate and rhythm without murmurs rubs or gallops. ABDOMINAL: Soft, nontender, nondistended, normal bowel sounds MUSCULOSKELETAL: Moves all extremities.? Lower extremity swelling worse on left than right NEURO: Alert. Cranial nerves II through XII intact.? Grossly intact SKIN: Warm, dry. Normal Color Objective Data Vital Signs Vital Signs: Vital Signs - 24 hr 12/29/22 15:20 12/29/22 15:30 12/29/22 15:31 Temperature Pulse Rate 99 89 95 Respiratory Rate 19 23 H 21 H Blood Pressure 128/80 Pulse Oximetry 93 93 94 Oxygen Delivery Oxygen Flow Rate 12/29/22 15:45 12/29/22 15:46 12/29/22 16:36 Temperature Pulse Rate 92 98 98 Respiratory Rate 26 H 24 H 20 Blood Pressure 140/83 167/87 H Pulse Oximetry 94 96 95 Oxygen Delivery Oxygen Flow Rate 12/29/22 20:00 12/29/22 21:40 12/29/22 20:00 Temperature 97.8 F Pulse Rate 96 74 Respiratory Rate 20 Blood Pressure 152/82 H Pulse Oximetry 97 97 Oxygen Deliver
[2022-12-30 16:48] LABS: Glucose Point of Care 82 mg/dl (65-105)
[2022-12-30] MEDS: WARFARIN (*PBKC) 5 MG TABLET PO (16:55)
[2022-12-30 20:08] LABS: Glucose Point of Care 142 mg/dl (65-105)
[2022-12-30] MEDS: DOXAZOSIN MESYLATE 2 MG TABLET PO (20:38)
[2022-12-30] MEDS: OMEGA 3 POLYUNSAT FATTY ACIDS 1 GM CAP PO (20:38)
[2022-12-30] MEDS: VITAMIN E 400 UNIT CAPSULE PO (20:38)
[2022-12-30] MEDS: INSULIN GLARGINE (*BKC) 100 UNITS/ML 18 UNITS SUB-Q (20:56)
[2022-12-31] VITALS (11 sets, daily range): BP systolic 117–138; BP diastolic 65–79; PULSE 58–89; RESP 16–22; TEMP 36.5–36.9; O2SAT 96–97
[2022-12-31 05:55] LABS: Basophils Absolute Auto 0.1 K/mm3 (0.0-0.1); Basophils Percent Auto 0.7 % (0.2-1.2); Eosinophils Absolute Auto 0.3 K/mm3 (0-0.3); Eosinophils Percent Auto 3.5 % (0-4.4); Hematocrit 31.2 % (42.0-52.0); Hemoglobin 9.9 g/dL (14.0-18.0); Immature Granulocyte Absolute 0.02 K/mm3 (0.00-0.031); Immature Granulocyte Percent A 0.3 % (0-0.5); Lymphocytes Absolute Auto 1.77 K/mm3 (0.9-3.2); Mean Corpuscular HGB Conc 31.7 g/dl (32-36); Mean Corpuscular Hemoglobin 30.9 pg (26-34); Mean Corpuscular Volume 97.5 fl (80-100); Mean Platelet Volume 9.6 fl (7.4-10.4); Monocytes Absolute Auto 0.7 K/mm3 (0.1-0.6); Monocytes Percent Auto 8.8 % (2.6-8.5); Neutrophils Absolute Auto 4.9 K/mm3 (1.3-6.7); Neutrophils Percent Auto 63.7 % (45.5-73.1); Platelet Count Result 235 k/mm3 (150-375); Red Cell Distribution Width 15.3 % (11.5-14.5); White Blood Count 7.7 K/mm3 (4.5-10.0)
[2022-12-31 06:06] LABS: Alanine Aminotransferase 15 U/L (6-50); Albumin Level 3.7 g/dL (3.5-5.1); Alkaline Phosphatase 84 U/L (38-126); Anion Gap 6 mmol/L (8-16); Aspartate Amino Transferase 20 U/L (17-59); Bilirubin,Total 0.5 mg/dL (0.2-1.3); Blood Urea Nitrogen 54 mg/dL (9-20); Calcium 8.8 mg/dL (8.4-10.2); Carbon Dioxide 26 mmol/L (22-30); Chloride 103 mmol/L (98-107); Estimated CRCL calculation 32 ml/min; Estimated Glomerular Filt Rate 25; Glucose 107 mg/dL (65-110); Magnesium 2.1 mg/dL (1.6-2.3); Potassium 4.1 mmol/L (3.4-5.0); Sodium 135 mmol/L (137-145)
[2022-12-31 06:08] LABS: INR 2.4; Prothrombin Time 25.3 Seconds (11.1-14.7)
--- NOTE | 2022-12-31 06:25 | PC.NURSE ---
Daylight Savings Time For Daylight Savings Time Ending in the Fall - Clocks are moved back. For Daylight Savings Time Beginning in the Spring - Clocks are moved ahead. For [facility], the time of change occurs at 0200 hrs. Time is taken from the restaurant line server. This entry on the patient's chart recognizes the change in time reflected during documentation. Example: 2 entries for vital signs may be charted for 0200 hrs.
[2022-12-31] MEDS: LEVOTHYROXINE SODIUM 88 MCG TABLET PO (06:56)
[2022-12-31 08:56] LABS: Glucose Point of Care 102 mg/dl (65-105)
[2022-12-31] MEDS: metOLazone 5 MG TABLET PO (09:24)
[2022-12-31] MEDS: FUROSEMIDE INJ 40 MG/4 ML VIAL 80 MG IV PUSH ×2 (09:24→20:46)
[2022-12-31] MEDS: METOPROLOL SUCCINATE EXT REL 25 MG TABCR PO (09:25)
[2022-12-31] MEDS: MAGNESIUM OXIDE 400 MG TABLET PO ×2 (09:25→20:47)
[2022-12-31] MEDS: ISOSORBIDE MONONITRATE 60 MG TAB.ER.24H 120 MG PO (09:25)
[2022-12-31] MEDS: SPIRONOLACTONE 25 MG TABLET PO (09:25)
[2022-12-31] MEDS: ASCORBIC ACID 500 MG TABLET PO (09:25)
[2022-12-31] MEDS: CLOPIDOGREL BISULFATE 75 MG TABLET PO (09:26)
[2022-12-31] MEDS: amLODIPine BESYLATE 5 MG TABLET 10 MG PO (09:26)
[2022-12-31] MEDS: PANTOPRAZOLE 40 MG TABLET PO (09:26)
[2022-12-31] MEDS: LOSARTAN POTASSIUM 25 MG TABLET PO (09:26)
[2022-12-31] MEDS: AMIODARONE HCL 200 MG TABLET PO (09:26)
--- NOTE | 2022-12-31 10:23 | PM.IMPN ---
Progress Note: A&P Assessment and Plan (1) Diastolic congestive heart failure: Code(s): I50.30 - Unspecified diastolic (congestive) heart failure Status: Acute (2) Heart failure with preserved ejection fraction: Code(s): I50.30 - Unspecified diastolic (congestive) heart failure Status: Acute (3) Chronic kidney disease: Code(s): N18.9 - Chronic kidney disease, unspecified Status: Acute (4) Proteinuria: Code(s): R80.9 - Proteinuria, unspecified Status: Acute (5) Atrial fibrillation: Code(s): I48.91 - Unspecified atrial fibrillation Status: Acute (6) Chronic anticoagulation: Code(s): Z79.01 - utility aide (current) use of anticoagulants Status: Acute (7) Obstructive sleep apnea: Code(s): G47.33 - Obstructive sleep apnea (adult) (pediatric) Status: Acute (8) Insulin dependent type 2 diabetes mellitus: Code(s): E11.9 - Type 2 diabetes mellitus without complications; Z79.4 - utility aide (current) use of insulin Status: Acute (9) Hypertension: Code(s): I10 - Essential (primary) hypertension Status: Acute (10) Hypothyroidism: Code(s): E03.9 - Hypothyroidism, unspecified Status: Acute Plan The patient presented to the emergency department for evaluation of shortness of breath, increasing edema, and weight gain over the past 2.5 weeks. # acute on chronic diastolic congestive heart failure: Continue diuresis as ordered echo 12/19/2022 EF 55-60% mild aortic stenosis no significant valvular abnormality pulmonary hypertension with PASP of 52 mm Hg monitor renal function with diuresis. Improved # acute on chronic renal failure stage IIIB: baseline creatinine around 2. Nephrology on board. Monitor renal function with diuresis clinically volume overloaded . Renal ultrasound # protein urea urine with 3+ protein. Will order quantitative test # EILEEN does not use his CPAP at night refused ApneaLink testing # hypertension # atrial fibrillation chronic on amiodarone. Warfarin with therapeutic INR # type 2 diabetes on insulin continue home medication Accu-Cheks monitoring check A1c Will hold glipizide. Lower Lantus. Continue to monitor Accu-Chek. At goal. # hypothyroidism # hyperlipidemia # chronic anticoagulation with warfarin # DVT prophylaxis warfarin with therapeutic INR # code status do not resuscitate Subjective Date/time seen: 12/31/22 10:23 Interval history: no overnight events. Patient reports shortness of breath on exertion. Leg swelling has worsened. Cough with some expectoration. No chest pain 12/31/2022: Feels better. Board and wants to go for a walk. Leg swelling still persist left worse than the right. He had injury on the left side in the past. Urine output to 1475 yesterday. 825 cc today so far labs reviewed. Review of Systems Review of Systems: All systems reviewed & are unremarkable except as noted in HPI and below Exam Narrative: APPEARANCE: Well appearing, no distress, well-nourished. HEAD: normocephalic, atraumatic. EYES: PERRLA/EOMI, conjunctivae clear. NOSE: Normal no drainage NECK: Supple. No adenopathy, no masses. RESPIRATORY: Airway patent, respirations nonlabored. Diminished breath sounds bilaterally, no rales, rhonchi, wheezing. CARDIOVASCULAR: Regular rate and rhythm without murmurs rubs or gallops. ABDOMINAL: Soft, nontender, nondistended, normal bowel sounds MUSCULOSKELETAL: Moves all extremities.? Lower extremity swelling worse on left than right NEURO: Alert. Cranial nerves II through XII intact.? Grossly intact SKIN: Warm, dry. Normal Color Objective Data Vital Signs Vital Signs: Vital Signs - 24 hr 12/30/22 10:18 12/30/22 10:19 12/30/22 14:00 Temperature 96.9 F L Pulse Rate 55 L Respiratory Rate 20 20 20 Blood Pressure 108/80 Pulse Oximetry 97 97 96 Oxygen Delivery Nasal Cannula Oxygen Flow Rate 3 12/30/22 12:00 12/30/22 16:
--- NOTE | 2022-12-31 10:32 | PM.PNNEP ---
Progress Note: A&P Assessment and Plan (1) Chronic kidney disease, stage 3b: Code(s): N18.32 - Chronic kidney disease, stage 3b Status: Acute Assessment and Plan: The patient has chronic kidney disease stage IIIB. He is seen by a breastfeeding peer counselor as an outpatient. Most likely this is caused by diabetes and hypertension. He has stage IIIB chronic kidney disease according to his breastfeeding peer counselor. This would be in keeping with his chronic creatinine of around 2. Now his creatinine has risen to 2.2 and then 2.4 and now 2.5. Renal ultrasound not done. UA shows 3+ protein will check quantitation of this He is getting diuretics which is possibly responsible for the higher creatinine but he is in heart failure so we need to get this fluid off. (2) Volume overload: Code(s): E87.70 - Fluid overload, unspecified Status: Acute Assessment and Plan: The patient is getting diuretics. He is still fairly short of breath but better. He had an echo on December 19 showing normal LVEF but diastolic dysfunction, and pulmonary hypertension. Perhaps the sleep apnea is an issue here. An apnea link was ordered. continue diuretic. I added metolazone as a routine (3) Atrial fibrillation: Code(s): I48.91 - Unspecified atrial fibrillation Status: Acute Assessment and Plan: His rate is pretty well controlled (4) Obstructive sleep apnea: Code(s): G47.33 - Obstructive sleep apnea (adult) (pediatric) Status: Acute Assessment and Plan: Apnea link has been ordered (5) Insulin dependent type 2 diabetes mellitus: Code(s): E11.9 - Type 2 diabetes mellitus without complications; Z79.4 - care home (current) use of insulin Status: Acute Assessment and Plan: Is on Accu-Cheks and sliding scale insulin per hospitalists. (6) Hypertension: Code(s): I10 - Essential (primary) hypertension Status: Acute Assessment and Plan: His blood pressure his good this morning It should improve with diuresis. Subjective Date/time seen: 12/31/22 10:32 Interval history: Patient is feeling a little better. Abdominal bloating is lessened. Breathing is a little better. Swelling is about the same Review of Systems Cardiovascular: Cardiovascular: Reports no additional cardiovascular complaints Respiratory: Respiratory: Reports no additional respiratory complaints Gastrointestinal: Gastrointestinal: Reports no additional gastrointestinal complaints Genitourinary: Genitourinary: Reports no additional male genitourinary complaints Exam Narrative: WDWN in NAD skin no rash head ncat lungs few crackles bilaterally cor reg no rub abd BS+ nontender and soft ext 2+ bilateral edema. Objective Data Vital Signs Vital Signs: Vital Signs - 24 hr 12/30/22 10:18 12/30/22 10:19 12/30/22 14:00 Temperature 96.9 F L Pulse Rate 55 L Respiratory Rate 20 20 20 Blood Pressure 108/80 Pulse Oximetry 97 97 96 Oxygen Delivery Nasal Cannula Oxygen Flow Rate 3 12/30/22 12:00 12/30/22 16:00 12/30/22 19:43 Temperature 97.7 F Pulse Rate 92 88 84 Respiratory Rate 22 H Blood Pressure 136/86 Pulse Oximetry 96 Oxygen Delivery Oxygen Flow Rate 12/30/22 20:00 12/31/22 00:00 12/31/22 04:00 Temperature Pulse Rate 75 85 83 Respiratory Rate Blood Pressure Pulse Oximetry Oxygen Delivery Oxygen Flow Rate 12/31/22 05:24 12/31/22 09:25 12/31/22 09:26 Temperature 97.7 F Pulse Rate 58 L 87 87 Respiratory Rate 22 H Blood Pressure 117/70 Pulse Oximetry 97 Oxygen Delivery Oxygen Flow Rate 12/31/22 08:00 Temperature Pulse Rate 83 Respiratory Rate Blood Pressure Pulse Oximetry Oxygen Delivery Oxygen Flow Rate Intake/Output Intake/Output: Intake & Output 12/28/22 12/29/22 12/30/22 01/01/23 23:59 23:59 23:59 00:59 Intake Total 1240 240 Output Total 795 1475 825
[2022-12-31 11:15] LABS: Creatine Kinase 46 U/L (55-170)
[2022-12-31 12:14] LABS: Glucose Point of Care 225 mg/dl (65-105)
[2022-12-31 13:26] LABS: Total Protein Urine Random 60 mg/dL; Ur Ttl Prot Creatinine Ratio 1.67 mg/mg (0-0.20)
[2022-12-31 13:27] LABS: Creatinine Urine 35.8 mg/dL; Total Protein Urine Random 59 mg/dL; Ur Ttl Prot Creatinine Ratio 1.65 mg/mg (0-0.20)
--- NOTE | 2022-12-31 13:46 | PCPTNOTE ---
Attempted to see for PT initial evaluation, pt states he is feeling nauseous like he is either going to have diarrhea or throw up. Requested PT to come back later, will continue to follow. RN notified.
[2022-12-31 17:30] LABS: Glucose Point of Care 173 mg/dl (65-105)
[2022-12-31 20:25] LABS: Glucose Point of Care 277 mg/dl (65-105)
[2022-12-31] MEDS: OMEGA 3 POLYUNSAT FATTY ACIDS 1 GM CAP PO (20:47)
[2022-12-31] MEDS: DOXAZOSIN MESYLATE 2 MG TABLET PO (20:47)
[2022-12-31] MEDS: VITAMIN E 400 UNIT CAPSULE PO (20:47)
[2022-12-31] MEDS: WARFARIN (*PBKC) 5 MG TABLET PO (20:47)
[2022-12-31] MEDS: INSULIN GLARGINE (*BKC) 100 UNITS/ML 18 UNITS SUB-Q (20:53)
[2023-01-01] VITALS (12 sets, daily range): BP systolic 121–140; BP diastolic 70–80; PULSE 72–95; RESP 16–22; TEMP 36.4–36.9; O2SAT 94–99
[2023-01-01] MEDS: LEVOTHYROXINE SODIUM 88 MCG TABLET PO (06:03)
[2023-01-01 06:16] LABS: Basophils Absolute Auto 0.1 K/mm3 (0.0-0.1); Eosinophils Absolute Auto 0.4 K/mm3 (0-0.3); Eosinophils Percent Auto 4.4 % (0-4.4); Hematocrit 31.8 % (42.0-52.0); Hemoglobin 9.9 g/dL (14.0-18.0); Immature Granulocyte Absolute 0.02 K/mm3 (0.00-0.031); Immature Granulocyte Percent A 0.2 % (0-0.5); Lymphocytes Absolute Auto 1.65 K/mm3 (0.9-3.2); Lymphocytes Percent Auto 20.6 % (18.3-44.2); Mean Corpuscular HGB Conc 31.1 g/dl (32-36); Mean Corpuscular Volume 99.7 fl (80-100); Mean Platelet Volume 9.7 fl (7.4-10.4); Monocytes Absolute Auto 0.7 K/mm3 (0.1-0.6); Monocytes Percent Auto 8.6 % (2.6-8.5); Neutrophils Absolute Auto 5.2 K/mm3 (1.3-6.7); Neutrophils Percent Auto 65.2 % (45.5-73.1); Platelet Count Result 247 k/mm3 (150-375); Red Blood Count 3.19 M/mm3 (4.6-6.20); Red Cell Distribution Width 15.3 % (11.5-14.5)
[2023-01-01 06:26] LABS: INR 2.2; Prothrombin Time 24.1 Seconds (11.1-14.7)
[2023-01-01 06:31] LABS: Alanine Aminotransferase 17 U/L (6-50); Albumin Level 3.7 g/dL (3.5-5.1); Alkaline Phosphatase 83 U/L (38-126); Anion Gap 5 mmol/L (8-16); Aspartate Amino Transferase 22 U/L (17-59); Bilirubin,Total 0.4 mg/dL (0.2-1.3); Blood Urea Nitrogen 60 mg/dL (9-20); Calcium 8.7 mg/dL (8.4-10.2); Carbon Dioxide 29 mmol/L (22-30); Chloride 100 mmol/L (98-107); Estimated CRCL calculation 30 ml/min; Estimated Glomerular Filt Rate 24; Glucose 138 mg/dL (65-110); Magnesium 2.1 mg/dL (1.6-2.3); Phosphorus 4.3 mg/dL (2.5-4.5); Potassium 4.1 mmol/L (3.4-5.0); Sodium 134 mmol/L (137-145)
[2023-01-01 08:21] LABS: Glucose Point of Care 115 mg/dl (65-105)
[2023-01-01] MEDS: CLOPIDOGREL BISULFATE 75 MG TABLET PO (08:29)
[2023-01-01] MEDS: amLODIPine BESYLATE 5 MG TABLET 10 MG PO (08:29)
[2023-01-01] MEDS: ISOSORBIDE MONONITRATE 60 MG TAB.ER.24H 120 MG PO (08:29)
[2023-01-01] MEDS: ASCORBIC ACID 500 MG TABLET PO (08:29)
[2023-01-01] MEDS: METOPROLOL SUCCINATE EXT REL 25 MG TABCR PO (08:29)
[2023-01-01] MEDS: metOLazone 5 MG TABLET PO (08:29)
[2023-01-01] MEDS: PANTOPRAZOLE 40 MG TABLET PO (08:30)
[2023-01-01] MEDS: FUROSEMIDE INJ 40 MG/4 ML VIAL 80 MG IV PUSH ×2 (08:30→22:33)
[2023-01-01] MEDS: AMIODARONE HCL 200 MG TABLET PO (08:30)
[2023-01-01] MEDS: MAGNESIUM OXIDE 400 MG TABLET PO ×2 (08:30→17:03)
[2023-01-01] MEDS: LOSARTAN POTASSIUM 25 MG TABLET PO (08:30)
[2023-01-01] MEDS: SPIRONOLACTONE 25 MG TABLET PO (08:30)
--- NOTE | 2023-01-01 12:36 | PM.PNNEP ---
Progress Note: A&P Assessment and Plan (1) Chronic kidney disease, stage 3b: Code(s): N18.32 - Chronic kidney disease, stage 3b Status: Acute Assessment and Plan: The patient has chronic kidney disease stage IIIB. He is seen by a human resource professional as an outpatient. Most likely this is caused by diabetes and hypertension. He has stage IIIB chronic kidney disease according to his human resource professional. This would be in keeping with his chronic creatinine of around 2. Now his creatinine has risen to 2.2 and then 2.4 and now 2.6 Renal ultrasound not done. upro 1650 not enough to lead to severe volume retension. He is getting diuretics which is possibly responsible for the higher creatinine but he is in heart failure so we need to get this fluid off. will go one more day and see how the creatinine is (2) Volume overload: Code(s): E87.70 - Fluid overload, unspecified Status: Acute Assessment and Plan: The patient is getting diuretics. He is still fairly short of breath but better. He had an echo on December 19 showing normal LVEF but diastolic dysfunction, and pulmonary hypertension. Perhaps the sleep apnea is an issue here. An apnea link was ordered. continue diuretic. on metolazone (3) Atrial fibrillation: Code(s): I48.91 - Unspecified atrial fibrillation Status: Acute Assessment and Plan: His rate is pretty well controlled (4) Obstructive sleep apnea: Code(s): G47.33 - Obstructive sleep apnea (adult) (pediatric) Status: Acute Assessment and Plan: Apnea link has been ordered (5) Insulin dependent type 2 diabetes mellitus: Code(s): E11.9 - Type 2 diabetes mellitus without complications; Z79.4 - USP (current) use of insulin Status: Acute Assessment and Plan: Is on Accu-Cheks and sliding scale insulin per hospitalists. (6) Hypertension: Code(s): I10 - Essential (primary) hypertension Status: Acute Assessment and Plan: His blood pressure is under good control. It should improve with diuresis. Subjective Date/time seen: 01/01/23 12:36 Interval history: Patient is feeling a little better. Abdominal bloating is lessened. Breathing is a little better. Swelling is about the same Exam Narrative: WDWN in NAD skin no rash head ncat lungs few crackles bilaterally cor reg no rub abd BS+ nontender and soft ext 2+ bilateral edema. Objective Data Vital Signs Vital Signs: Vital Signs - 24 hr 12/31/22 14:00 12/31/22 16:00 12/31/22 22:00 Temperature 97.8 F 98.4 F Pulse Rate 74 78 60 Respiratory Rate 16 20 Blood Pressure 127/65 138/79 Pulse Oximetry 96 97 Oxygen Delivery Oxygen Flow Rate 12/31/22 20:00 01/01/23 00:00 01/01/23 04:00 Temperature Pulse Rate 58 L 95 72 Respiratory Rate Blood Pressure Pulse Oximetry Oxygen Delivery Oxygen Flow Rate 01/01/23 06:00 01/01/23 08:29 01/01/23 08:30 Temperature 98.4 F Pulse Rate 78 72 72 Respiratory Rate 20 Blood Pressure 133/80 Pulse Oximetry 97 Oxygen Delivery Oxygen Flow Rate 01/01/23 08:00 01/01/23 11:16 01/01/23 11:38 Temperature Pulse Rate 81 Respiratory Rate Blood Pressure Pulse Oximetry 98 Oxygen Delivery Nasal Cannula Nasal Cannula Oxygen Flow Rate 3 1 01/01/23 12:00 Temperature Pulse Rate 84 Respiratory Rate Blood Pressure Pulse Oximetry Oxygen Delivery Oxygen Flow Rate Intake/Output Intake/Output: Intake & Output 12/29/22 12/30/22 12/31/22 01/01/23 22:59 22:59 23:59 23:59 Intake Total 790 Output Total 1850 Balance -1060 Meds/Results Medications: Active Medications Generic Name Dose Route Start Last Admin Trade Name Freq PRN Reason Stop Dose Admin Acetaminophen 325 - 650 mg 12/29/22 22:22 Acetaminophen 325 Mg Tablet PO Q6H PRN Pain Rated 1-3 Hydrocodone Bitart/Acetaminophen 1 tab 12/29
[2023-01-01 12:37] LABS: Glucose Point of Care 172 mg/dl (65-105)
[2023-01-01] MEDS: guaiFENesin 12 HR 600 MG TABCR PO ×2 (12:51→22:33)
[2023-01-01] MEDS: FLUTICASONE PROPIONATE 0.05% NA SPR 16 GM BTL (*BKC) 1 SPRAY NASAL ×2 (12:51→22:36)
[2023-01-01] MEDS: LORATADINE 10 MG TABLET PO (12:51)
--- NOTE | 2023-01-01 16:28 | PM.IMPN ---
Progress Note: A&P Assessment and Plan (1) Diastolic congestive heart failure: Code(s): I50.30 - Unspecified diastolic (congestive) heart failure Status: Acute (2) Heart failure with preserved ejection fraction: Code(s): I50.30 - Unspecified diastolic (congestive) heart failure Status: Acute (3) Chronic kidney disease: Code(s): N18.9 - Chronic kidney disease, unspecified Status: Acute (4) Proteinuria: Code(s): R80.9 - Proteinuria, unspecified Status: Acute (5) Atrial fibrillation: Code(s): I48.91 - Unspecified atrial fibrillation Status: Acute (6) Chronic anticoagulation: Code(s): Z79.01 - rat exterminator (current) use of anticoagulants Status: Acute (7) Obstructive sleep apnea: Code(s): G47.33 - Obstructive sleep apnea (adult) (pediatric) Status: Acute (8) Insulin dependent type 2 diabetes mellitus: Code(s): E11.9 - Type 2 diabetes mellitus without complications; Z79.4 - rat exterminator (current) use of insulin Status: Acute (9) Hypertension: Code(s): I10 - Essential (primary) hypertension Status: Acute (10) Hypothyroidism: Code(s): E03.9 - Hypothyroidism, unspecified Status: Acute Plan The patient presented to the emergency department for evaluation of shortness of breath, increasing edema, and weight gain over the past 2.5 weeks. # acute on chronic diastolic congestive heart failure: Continue diuresis as ordered echo 12/19/2022 EF 55-60% mild aortic stenosis no significant valvular abnormality pulmonary hypertension with PASP of 52 mm Hg monitor renal function with diuresis. Improved # acute on chronic renal failure stage IIIB: baseline creatinine around 2. Nephrology on board. Monitor renal function with diuresis clinically volume overloaded . Renal ultrasound # protein urea urine with 3+ protein. Will order quantitative test # EILEEN does not use his CPAP at night refused ApneaLink testing # hypertension # atrial fibrillation chronic on amiodarone. Warfarin with therapeutic INR # type 2 diabetes on insulin continue home medication Accu-Cheks monitoring check A1c Will hold glipizide. Lower Lantus. Continue to monitor Accu-Chek. At goal. # hypothyroidism # hyperlipidemia # chronic anticoagulation with warfarin # DVT prophylaxis warfarin with therapeutic INR # code status do not resuscitate 01/01/2023 interval history: patient states feeling much better compared to when he arrived, not as short of breath however complains of stuffiness and sinus headache will give the patient guaifenesin, Claritin and Flonase, patient with congestive heart failure patient is being diuresed, Subjective Date/time seen: 01/01/23 16:28 The patient presented to the emergency department for evaluation of shortness of breath, increasing edema, and weight gain over the past 2.5 weeks. # acute on chronic diastolic congestive heart failure: Continue diuresis as ordered echo 12/19/2022 EF 55-60% mild aortic stenosis no significant valvular abnormality pulmonary hypertension with PASP of 52 mm Hg monitor renal function with diuresis. Improved # acute on chronic renal failure stage IIIB: baseline creatinine around 2. Nephrology on board. Monitor renal function with diuresis clinically volume overloaded . Renal ultrasound # protein urea urine with 3+ protein. Will order quantitative test # EILEEN does not use his CPAP at night refused ApneaLink testing # hypertension # atrial fibrillation chronic on amiodarone. Warfarin with therapeutic INR # type 2 diabetes on insulin continue home medication Accu-Cheks monitoring check A1c Will hold glipizide. Lower Lantus. Continue to monitor Accu-Chek. At goal. # hypothyroidism # hyperlipidemia # chronic anticoagulation with warfarin # DVT prophylaxis warfarin with therapeutic INR # code status do not resuscitate 01/01/2023 interval history: patient states feeling much
[2023-01-01] MEDS: WARFARIN (*PBKC) 5 MG TABLET PO (17:03)
[2023-01-01 18:12] LABS: Glucose Point of Care 194 mg/dl (65-105)
[2023-01-01 21:05] LABS: Glucose Point of Care 244 mg/dl (65-105)
[2023-01-01] MEDS: OMEGA 3 POLYUNSAT FATTY ACIDS 1 GM CAP PO (22:33)
[2023-01-01] MEDS: DOXAZOSIN MESYLATE 2 MG TABLET PO (22:33)
[2023-01-01] MEDS: VITAMIN E 400 UNIT CAPSULE PO (22:33)
[2023-01-01] MEDS: INSULIN GLARGINE (*BKC) 100 UNITS/ML 18 UNITS SUB-Q (22:33)
[2023-01-02] VITALS (10 sets, daily range): BP systolic 110–139; BP diastolic 50–68; PULSE 61–87; RESP 20–22; TEMP 36.5–36.7; O2SAT 97–99
[2023-01-02] MEDS: LEVOTHYROXINE SODIUM 88 MCG TABLET PO (05:50)
[2023-01-02 06:20] LABS: Albumin Level 3.8 g/dL (3.5-5.1); Anion Gap 7 mmol/L (8-16); Blood Urea Nitrogen 66 mg/dL (9-20); Calcium 8.6 mg/dL (8.4-10.2); Carbon Dioxide 28 mmol/L (22-30); Chloride 99 mmol/L (98-107); Estimated CRCL calculation 28 ml/min; Estimated Glomerular Filt Rate 22; Glucose 119 mg/dL (65-110); Magnesium 2.2 mg/dL (1.6-2.3); Phosphorus 4.5 mg/dL (2.5-4.5); Potassium 3.8 mmol/L (3.4-5.0); Sodium 134 mmol/L (137-145)
[2023-01-02 06:25] LABS: INR 2.1; Prothrombin Time 22.9 Seconds (11.1-14.7)
[2023-01-02 08:42] LABS: Glucose Point of Care 186 mg/dl (65-105)
[2023-01-02] MEDS: FUROSEMIDE INJ 40 MG/4 ML VIAL 80 MG IV PUSH (09:23)
[2023-01-02] MEDS: LORATADINE 10 MG TABLET PO (09:24)
[2023-01-02] MEDS: CLOPIDOGREL BISULFATE 75 MG TABLET PO (09:24)
[2023-01-02] MEDS: LOSARTAN POTASSIUM 25 MG TABLET PO (09:24)
[2023-01-02] MEDS: METOPROLOL SUCCINATE EXT REL 25 MG TABCR PO (09:24)
[2023-01-02] MEDS: AMIODARONE HCL 200 MG TABLET PO (09:24)
[2023-01-02] MEDS: amLODIPine BESYLATE 5 MG TABLET 10 MG PO (09:24)
[2023-01-02] MEDS: MAGNESIUM OXIDE 400 MG TABLET PO ×2 (09:24→17:11)
[2023-01-02] MEDS: ASCORBIC ACID 500 MG TABLET PO (09:24)
[2023-01-02] MEDS: guaiFENesin 12 HR 600 MG TABCR PO ×2 (09:24→20:57)
[2023-01-02] MEDS: ISOSORBIDE MONONITRATE 60 MG TAB.ER.24H 120 MG PO (09:24)
[2023-01-02] MEDS: FLUTICASONE PROPIONATE 0.05% NA SPR 16 GM BTL (*BKC) 1 SPRAY NASAL ×2 (09:25→20:57)
[2023-01-02] MEDS: metOLazone 5 MG TABLET PO (09:25)
[2023-01-02] MEDS: PANTOPRAZOLE 40 MG TABLET PO (09:25)
[2023-01-02] MEDS: SPIRONOLACTONE 25 MG TABLET PO (09:25)
[2023-01-02 12:15] LABS: Glucose Point of Care 190 mg/dl (65-105)
--- NOTE | 2023-01-02 14:44 | PM.PNNEP ---
Progress Note: A&P Assessment and Plan (1) Chronic kidney disease, stage 3b: Code(s): N18.32 - Chronic kidney disease, stage 3b Status: Acute Assessment and Plan: The patient has chronic kidney disease stage IIIB. He is seen by a cardiac rehab nurse as an outpatient. Most likely this is caused by diabetes and hypertension. He has stage IIIB chronic kidney disease according to his cardiac rehab nurse. This would be in keeping with his chronic creatinine of around 2. Now his creatinine has risen to 2.2 and then 2.4 and now 2.6 Renal ultrasound is normal upro 1650 not enough to lead to severe volume retension. Creatinine marek again today. Swelling is better and shortness of breath is better so will cut back on the diuretics. (2) Volume overload: Code(s): E87.70 - Fluid overload, unspecified Status: Acute Assessment and Plan: The patient is getting diuretics. He is still fairly short of breath but better. He had an echo on December 19 showing normal LVEF but diastolic dysfunction, and pulmonary hypertension. Perhaps the sleep apnea is an issue here. An apnea link was ordered. Cut back the diuretics. (3) Atrial fibrillation: Code(s): I48.91 - Unspecified atrial fibrillation Status: Acute Assessment and Plan: His rate is pretty well controlled (4) Obstructive sleep apnea: Code(s): G47.33 - Obstructive sleep apnea (adult) (pediatric) Status: Acute Assessment and Plan: Apnea link has been ordered (5) Insulin dependent type 2 diabetes mellitus: Code(s): E11.9 - Type 2 diabetes mellitus without complications; Z79.4 - long term (current) use of insulin Status: Acute Assessment and Plan: Is on Accu-Cheks and sliding scale insulin per hospitalists. (6) Hypertension: Code(s): I10 - Essential (primary) hypertension Status: Acute Assessment and Plan: His blood pressure is doing well with a systolic 110 Subjective Date/time seen: 01/02/23 14:44 Interval history: Patient is feeling a little better. Sitting up in a chair. Swelling is much better. Eating is almost normal. He has oxygen off and is going to get an oxygen saturation. Exam Narrative: WDWN in NAD skin no rash head ncat lungs fairly clear cor reg no rub abd BS+ nontender and soft ext 1+ bilateral edema. Objective Data Vital Signs Vital Signs: Vital Signs - 24 hr 01/01/23 16:00 01/01/23 22:00 01/01/23 20:00 Temperature 98.0 F Pulse Rate 82 78 75 Respiratory Rate 22 H Blood Pressure 140/71 Pulse Oximetry 99 01/02/23 00:00 01/02/23 04:00 01/02/23 06:00 Temperature 98.0 F Pulse Rate 87 71 76 Respiratory Rate 22 H Blood Pressure 139/68 Pulse Oximetry 99 01/02/23 09:24 01/02/23 09:24 01/02/23 08:00 Temperature Pulse Rate 74 74 69 Respiratory Rate Blood Pressure Pulse Oximetry 01/02/23 12:00 01/02/23 14:00 Temperature 97.7 F Pulse Rate 76 76 Respiratory Rate 20 Blood Pressure 110/60 Pulse Oximetry 98 Intake/Output Intake/Output: Intake & Output 12/30/22 12/31/22 01/01/23 01/02/23 22:59 23:59 23:59 23:59 Intake Total 1510 480 Output Total 2050 1150 Balance -540 -670 Meds/Results Medications: Active Medications Generic Name Dose Route Start Last Admin Trade Name Freq PRN Reason Stop Dose Admin Acetaminophen 325 - 650 mg 12/29/22 22:22 Acetaminophen 325 Mg Tablet PO Q6H PRN Pain Rated 1-3 Hydrocodone Bitart/Acetaminophen 1 tab 12/29/22 22:45 Hydrocodone/Acetaminophen (*Crx) 5-325 Mg Tablet PO Q6H PRN Pain Rated 4-6 Albuterol 2.5 mg 12/30/22 00:01 12/30/22 00:15 Albuterol Sulfate Neb 2.5 Mg/3 Ml Inh INHALATION 2.5 mg Q4HRT PRN Administration Shortness Of Breath Amiodarone HCl 200 mg 12/30/22 08:00 01/02/23 09:24 Amiodarone Hcl 200 Mg Tablet PO 200 mg DAILY@0800 ALBERTO Administration Amlodipine
[2023-01-02 16:29] LABS: Glucose Point of Care 197 mg/dl (65-105)
--- NOTE | 2023-01-02 16:29 | PM.IMPN ---
Progress Note: A&P Assessment and Plan (1) Diastolic congestive heart failure: Code(s): I50.30 - Unspecified diastolic (congestive) heart failure Status: Acute (2) Heart failure with preserved ejection fraction: Code(s): I50.30 - Unspecified diastolic (congestive) heart failure Status: Acute (3) Chronic kidney disease: Code(s): N18.9 - Chronic kidney disease, unspecified Status: Acute (4) Proteinuria: Code(s): R80.9 - Proteinuria, unspecified Status: Acute (5) Atrial fibrillation: Code(s): I48.91 - Unspecified atrial fibrillation Status: Acute (6) Chronic anticoagulation: Code(s): Z79.01 - intermediate card tender (current) use of anticoagulants Status: Acute (7) Obstructive sleep apnea: Code(s): G47.33 - Obstructive sleep apnea (adult) (pediatric) Status: Acute (8) Insulin dependent type 2 diabetes mellitus: Code(s): E11.9 - Type 2 diabetes mellitus without complications; Z79.4 - intermediate card tender (current) use of insulin Status: Acute (9) Hypertension: Code(s): I10 - Essential (primary) hypertension Status: Acute (10) Hypothyroidism: Code(s): E03.9 - Hypothyroidism, unspecified Status: Acute Plan The patient presented to the emergency department for evaluation of shortness of breath, increasing edema, and weight gain over the past 2.5 weeks. # acute on chronic diastolic congestive heart failure: Continue diuresis as ordered echo 12/19/2022 EF 55-60% mild aortic stenosis no significant valvular abnormality pulmonary hypertension with PASP of 52 mm Hg monitor renal function with diuresis. Improved # acute on chronic renal failure stage IIIB: baseline creatinine around 2. Nephrology on board. Monitor renal function with diuresis clinically volume overloaded . Renal ultrasound # protein urea urine with 3+ protein. Will order quantitative test # EILEEN does not use his CPAP at night refused ApneaLink testing # hypertension # atrial fibrillation chronic on amiodarone. Warfarin with therapeutic INR # type 2 diabetes on insulin continue home medication Accu-Cheks monitoring check A1c Will hold glipizide. Lower Lantus. Continue to monitor Accu-Chek. At goal. # hypothyroidism # hyperlipidemia # chronic anticoagulation with warfarin # DVT prophylaxis warfarin with therapeutic INR # code status do not resuscitate 01/02/2023 interval history: patient states feeling much better compared to when he arrived, not as short of breath however complains of stuffiness and sinus headache will give the patient guaifenesin, Claritin and Flonase, patient with congestive heart failure patient is being diuresed, repeat chest x-ray today shows resolution of pulmonary disease, however patient is weak and tired has difficulty with ambulation will continue PT OT will benefit going to rehab continue to monito Subjective Date/time seen: 01/02/23 16:29 01/02/2023 interval history: patient states feeling much better compared to when he arrived, not as short of breath however complains of stuffiness and sinus headache will give the patient guaifenesin, Claritin and Flonase, patient with congestive heart failure patient is being diuresed, repeat chest x-ray today shows resolution of pulmonary disease, however patient is weak and tired has difficulty with ambulation will continue PT OT will benefit going to rehab continue to monitor. Review of Systems Review of Systems: All systems reviewed & are unremarkable except as noted in HPI and below Exam Narrative: morbidly obese Patient is comfortable, NAD HEENT: eyes are clear and none icteric LUNGS: bilateral fair entry with minimal rales HEART: RR S1S2 ABD: BS+, Soft and nontender Lower extremities: edema SKIN: nonjaundiced Neuro: grossly intact. Objective Data Vital Signs Vital Signs: Vital Signs - 24 hr 01/01/23 22:00 01/01/23 20:00 01/02/23 00:00 Temperature 98.0 F Puls
[2023-01-02] MEDS: WARFARIN (*PBKC) 5 MG TABLET PO (17:11)
[2023-01-02] MEDS: VITAMIN E 400 UNIT CAPSULE PO (20:57)
[2023-01-02] MEDS: INSULIN GLARGINE (*BKC) 100 UNITS/ML 18 UNITS SUB-Q (20:57)
[2023-01-02] MEDS: OMEGA 3 POLYUNSAT FATTY ACIDS 1 GM CAP PO (20:57)
[2023-01-02 21:00] LABS: Glucose Point of Care 275 mg/dl (65-105)
[2023-01-02] MEDS: DOXAZOSIN MESYLATE 2 MG TABLET PO (21:00)
[2023-01-03] VITALS (7 sets, daily range): BP systolic 116–119; BP diastolic 51–54; PULSE 56–73; RESP 20; TEMP 36.1–36.7; O2SAT 97–98
[2023-01-03 05:50] LABS: Prothrombin Time 22.3 Seconds (11.1-14.7)
[2023-01-03 05:51] LABS: Albumin Level 3.7 g/dL (3.5-5.1); Anion Gap 10 mmol/L (8-16); Blood Urea Nitrogen 72 mg/dL (9-20); Calcium 8.2 mg/dL (8.4-10.2); Carbon Dioxide 27 mmol/L (22-30); Chloride 100 mmol/L (98-107); Estimated CRCL calculation 28 ml/min; Estimated Glomerular Filt Rate 22; Glucose 141 mg/dL (65-110); Magnesium 2.2 mg/dL (1.6-2.3); Phosphorus 4.7 mg/dL (2.5-4.5); Potassium 3.9 mmol/L (3.4-5.0); Sodium 137 mmol/L (137-145)
[2023-01-03] MEDS: LEVOTHYROXINE SODIUM 88 MCG TABLET PO (06:08)
[2023-01-03 08:27] LABS: Glucose Point of Care 127 mg/dl (65-105)
[2023-01-03] MEDS: FUROSEMIDE 40 MG TABLET PO (09:20)
[2023-01-03] MEDS: SPIRONOLACTONE 25 MG TABLET PO (09:21)
[2023-01-03] MEDS: ASCORBIC ACID 500 MG TABLET PO (09:21)
[2023-01-03] MEDS: PANTOPRAZOLE 40 MG TABLET PO (09:21)
[2023-01-03] MEDS: LOSARTAN POTASSIUM 25 MG TABLET PO (09:21)
[2023-01-03] MEDS: LORATADINE 10 MG TABLET PO (09:21)
[2023-01-03] MEDS: CLOPIDOGREL BISULFATE 75 MG TABLET PO (09:21)
[2023-01-03] MEDS: amLODIPine BESYLATE 5 MG TABLET PO (09:21)
[2023-01-03] MEDS: guaiFENesin 12 HR 600 MG TABCR PO (09:21)
[2023-01-03] MEDS: MAGNESIUM OXIDE 400 MG TABLET PO ×2 (09:21→16:10)
[2023-01-03] MEDS: ISOSORBIDE MONONITRATE 60 MG TAB.ER.24H 120 MG PO (09:21)
[2023-01-03] MEDS: AMIODARONE HCL 200 MG TABLET PO (09:22)
[2023-01-03] MEDS: METOPROLOL SUCCINATE EXT REL 25 MG TABCR PO (09:22)
[2023-01-03] MEDS: FLUTICASONE PROPIONATE 0.05% NA SPR 16 GM BTL (*BKC) 1 SPRAY NASAL (09:25)
--- NOTE | 2023-01-03 12:26 | PM.DS ---
DS: Admitting Diagnosis Discharge Date 01/03/2023 Admitting Diagnosis Shortness of breath and swelling. DS: Discharge Diagnosis Discharge Diagnosis (1) Diastolic congestive heart failure: Code(s): I50.30 - Unspecified diastolic (congestive) heart failure Status: Acute (2) Heart failure with preserved ejection fraction: Code(s): I50.30 - Unspecified diastolic (congestive) heart failure Status: Acute (3) Chronic kidney disease: Code(s): N18.9 - Chronic kidney disease, unspecified Status: Acute (4) Proteinuria: Code(s): R80.9 - Proteinuria, unspecified Status: Acute (5) Atrial fibrillation: Code(s): I48.91 - Unspecified atrial fibrillation Status: Acute (6) Chronic anticoagulation: Code(s): Z79.01 - FPC (current) use of anticoagulants Status: Acute (7) Obstructive sleep apnea: Code(s): G47.33 - Obstructive sleep apnea (adult) (pediatric) Status: Acute (8) Insulin dependent type 2 diabetes mellitus: Code(s): E11.9 - Type 2 diabetes mellitus without complications; Z79.4 - assistant terminal manager (current) use of insulin Status: Acute (9) Hypertension: Code(s): I10 - Essential (primary) hypertension Status: Acute (10) Hypothyroidism: Code(s): E03.9 - Hypothyroidism, unspecified Status: Acute Plan The patient presented to the emergency department for evaluation of shortness of breath, increasing edema, and weight gain over the past 2.5 weeks. # acute on chronic diastolic congestive heart failure: Continue diuresis as ordered echo 12/19/2022 EF 55-60% mild aortic stenosis no significant valvular abnormality pulmonary hypertension with PASP of 52 mm Hg monitor renal function with diuresis. Improved # acute on chronic renal failure stage IIIB: baseline creatinine around 2. Nephrology on board. Monitor renal function with diuresis clinically volume overloaded . Renal ultrasound # protein urea urine with 3+ protein. Will order quantitative test # EILEEN does not use his CPAP at night refused ApneaLink testing # hypertension # atrial fibrillation chronic on amiodarone. Warfarin with therapeutic INR # type 2 diabetes on insulin continue home medication Accu-Cheks monitoring check A1c Will hold glipizide. Lower Lantus. Continue to monitor Accu-Chek. At goal. # hypothyroidism # hyperlipidemia # chronic anticoagulation with warfarin # DVT prophylaxis warfarin with therapeutic INR # code status do not resuscitate 01/02/2023 interval history: patient states feeling much better compared to when he arrived, not as short of breath however complains of stuffiness and sinus headache will give the patient guaifenesin, Claritin and Flonase, patient with congestive heart failure patient is being diuresed, repeat chest x-ray today shows resolution of pulmonary disease, however patient is weak and tired has difficulty with ambulation will continue PT OT will benefit going to rehab continue to monito DS: Summary Hospital Course Reason for hospitalization: Shortness of breath and swelling. Narrative: This is a pleasant 77-year-old male with history of atrial fibrillation on chronic anticoagulation, coronary artery disease, chronic kidney disease, insulin-dependent diabetes, hypertension, dyslipidemia, sleep apnea (documented however patient denies), chronic anemia, and hypothyroidism who presented to the emergency department via EMS from [facility] for evaluation of shortness of breath and swelling. Patient provides the following history. Over the past 2.5 weeks he has developed shortness of breath, lower extremity edema, and he reports an 8 lb weight gain. He has an occasional cough which has thus far been nonproductive up until last night when he had a coughing jag in which she coughed up and eventually vomited up a large amount of mostly clear mucous though some of the mucus appeared to be light green. Earlier this week he
[2023-01-03 12:53] LABS: Glucose Point of Care 191 mg/dl (65-105)
[2023-01-03] MEDS: WARFARIN (*PBKC) 5 MG TABLET PO (16:09)
== END 2023-01-03 16:40 | DRG 291 ==
LOC: ANHED 14:20 → ANH3MED 16:24
PROVIDERS: Internal Medicine; Internal Medicine Nephrology; Physician Assistant; Admitting Provider Student in an Organized Health Care Education/Training Program; Emergency Provider Emergency Medicine; PCP Registered Nurse; Visit Provider Family Medicine
DX: I13.0 Hypertensive heart and chronic kidney disease with heart failure and stage 1 through stage 4 chronic kidney disease, or unspecified chronic kidney disease (principal); I50.33 Acute on chronic diastolic (congestive) heart failure; N17.9 Acute kidney failure, unspecified; I48.20 Chronic atrial fibrillation, unspecified; N18.32 Chronic kidney disease, stage 3b; D63.1 Anemia in chronic kidney disease; E03.9 Hypothyroidism, unspecified; E78.5 Hyperlipidemia, unspecified; E11.22 Type 2 diabetes mellitus with diabetic chronic kidney disease; G47.33 Obstructive sleep apnea (adult) (pediatric); I27.20 Pulmonary hypertension, unspecified; I25.2 Old myocardial infarction; I35.0 Nonrheumatic aortic (valve) stenosis; I25.10 Atherosclerotic heart disease of native coronary artery without angina pectoris; R09.02 Hypoxemia; R80.8 Other proteinuria; Z66 Do not resuscitate; Z20.822 Contact with and (suspected) exposure to COVID-19; Z95.5 Presence of coronary angioplasty implant and graft; Z79.02 Long term (current) use of antithrombotics/antiplatelets; Z79.4 Long term (current) use of insulin; Z79.84 Long term (current) use of oral hypoglycemic drugs; Z79.01 Long term (current) use of anticoagulants; Z90.49 Acquired absence of other specified parts of digestive tract; Z87.891 Personal history of nicotine dependence
CPT/HCPCS: 36415; 71045; 71046; 76775; 80053; 80069; 81001; 82550; 82570; 82948; 83735; 83880; 84100; 84156; 84443; 84484; 85025; 85027; 85610; 85730; 87637; 93005; 94640; 96374; 96375; 96376; 97161; 99285; A9270; G0378; J1815; J1940; J2060; J2270

== ENCOUNTER 2023-02-17 07:17 | Inpatient (IN) | payer MEDICARE, MEDICAID, SELFPAY ==
[2023-02-17] VITALS (36 sets, daily range): BP systolic 75–151; BP diastolic 34–95; PULSE 72–113; RESP 15–30; TEMP 35.9–36.8; O2SAT 88–100; BMI 36.6; BMI 36.4
--- NOTE | ~2023-02-17 | XR_ITS ---
EXAMINATION: XR barium swallow modified DATE: 02/23/2023 09:01 INDICATION: Dysphagia TECHNIQUE: Modified barium esophagram was performed by myself who administered fluoroscopy, in conju nction with speech pathologist who administered barium in varying consistencies as per speech patholo gist documentation. This was recorded on tape. A single fluoroscopic spot image was recorded. Fluoros copy exposure time was 1.4 minutes. The DAP for this procedure was 1.436 Gycm2. FINDINGS: Oral stage: Adequate function. Pharyngeal phase: [id number] vallecular residue. Laryngeal penetration: None. Aspiration: None. Laryngeal sensitivity: Not applicable. IMPRESSION: Modified barium swallow as above. Please refer to speech pathologist findings and specifi c feeding recommendations. Reviewed, dictated and finalized at location A. IMPRESSION: Modified barium swallow as above. Please refer to speech pathologis t findings and specific feeding recommendations.
--- NOTE | ~2023-02-17 | XR_ITS ---
EXAMINATION: [id number]_[id number]_CR DATE: 02/20/2023 10:08 INDICATION: Neck pain and stiffness. TECHNIQUE: 4 views of cervical spine were obtained. COMPARISON: Chest CT 05/07/2021 FINDINGS: Bone alignment is normal. Vertebral body heights and intervertebral disc heights are normal . There is multilevel mild facet joint osteoarthritis. No central canal stenosis or prevertebral soft tissue swelling. IMPRESSION: 1. Mild cervical facet joint osteoarthritis. Reviewed, dictated and finalized at location A.
--- NOTE | ~2023-02-17 | XR_ITS ---
Portable chest x-ray Comparison: 02/19/2023 Clinical History: Respiratory failure Findings: Moderate pulmonary edema pattern is present. Small right pleural effusion present. Cardio mediastinal silhouette is stable. Bones and soft tissues are unremarkable. Impression: Moderate pulmonary edema pattern with small right pleural effusion. Correlate clinically for infectio n. Reviewed, dictated and finalized at [facility]. Impression: Moderate pulmonary edema pattern with small right pleural effusion. Correlate c linically for infection.
--- NOTE | ~2023-02-17 | XR_ITS ---
EXAMINATION: XR chest 1V portable DATE: 02/18/2023 12:40 INDICATION: Hypoxia. Respiratory distress. TECHNIQUE: frontal view of the chest was obtained. COMPARISON: Chest radiograph dated 02/17/2023 FINDINGS: Small lung volumes. Opacities in bilateral mid and lower lung zones. This includes small bilateral pl eural effusions with blunting at the left costophrenic angle and small amount of fluid tracking along the right major fissure. No pneumothorax. Cardiomegaly. IMPRESSION: 1. Small lung volumes with opacities in bilateral mid and lower lung zones due at least in part to sm all bilateral pleural effusions with superimposed pulmonary edema, atelectasis, pneumonia or some com bination thereof. 2. Cardiomegaly. Reviewed, dictated and finalized at location A. IMPRESSION: 1. Small lung volumes with opacities in bilateral mid and lower lung zones due at least in part to small bilateral pleural effusions with superimposed pulmona ry edema, atelectasis, pneumonia or some combination thereof. 2. Cardiomegaly.
--- NOTE | ~2023-02-17 | XR_ITS ---
Portable chest x-ray Comparison: 02/20/2023 Clinical History: Respiratory failure Findings: Moderate pulmonary edema pattern is similar to prior exam. Possible small right pleural ef fusion. Cardiomediastinal silhouette is stable. Bones and soft tissues are unremarkable. Impression: Moderate pulmonary edema pattern and possible small right pleural effusion, similar to prior exam. Reviewed, dictated and finalized at [facility]. Impression: Moderate pulmonary edema pattern and possible small right pleural effusion, sim ilar to prior exam.
--- NOTE | ~2023-02-17 | XR_ITS ---
EXAMINATION: XR chest 1V portable Exam Date/Time: 02/28/2023 17:40 CDT HISTORY: CHF and hypoxia Comparison: 02/22/2023. RESULT: Lines, tubes, and devices: Coronary artery stents. Lungs and pleura: Improved aeration of the lung bases. Persistent diffuse reticular opacities. Decre ased right costophrenic angle blunting. Cardiomediastinal silhouette: Stable. Other: No acute osseous or upper abdominal finding. IMPRESSION: Improving aeration. Decreasing size of right pleural effusion. Persistent interstitial edema. Reviewed, dictated and finalized at location K. IMPRESSION: Improving aeration. Decreasing size of right pleural effusion. Persistent inter stitial edema.
--- NOTE | ~2023-02-17 | XR_ITS ---
Portable chest x-ray Comparison: 03/20/2023 Clinical History: Respiratory failure Findings: Moderate pulmonary edema pattern and probable small right pleural effusion are stable from prior exam. Cardiomediastinal silhouette is stable. Bones and soft tissues are unremarkable. Impression: No interval change. Moderate presumed pulmonary edema pattern and probable small right pleural effusi on. Reviewed, dictated and finalized at location . Impression: No interval change. Moderate presumed pulmonary edema pattern and probable smal l right pleural effusion.
--- NOTE | ~2023-02-17 | XR_ITS ---
Portable chest x-ray Comparison: 02/18/2023 Clinical History: Respiratory failure Findings: Mild to moderate pulmonary edema pattern is present. Possible minimal pleural effusion. C ardiomediastinal silhouette is stable. Bones and soft tissues are unremarkable. Impression: [id number] pulmonary edema pattern with possible minimal pleural effusions. Reviewed, dictated and finalized at [facility]. Impression: [id number] pulmonary edema pattern with possible minimal pleural effusion s.
--- NOTE | ~2023-02-17 | XR_ITS ---
EXAMINATION: XR chest 1V portable INDICATION: Shortness of breath TECHNIQUE: Portable AP chest at 0805 hours COMPARISON: 01/02/2023 FINDINGS: There are airspace opacities of the lung bases with slight increase. No pleural effusion or pneumothorax. The cardiomediastinal silhouette is stable. IMPRESSION: 1. Bibasilar airspace opacities with slight increase, consistent with atelectasis versus pneumonia. Reviewed, dictated and finalized at location A. IMPRESSION: 1. Bibasilar airspace opacities with slight increase, consistent with atelectas is versus pneumonia.
--- NOTE | 2023-02-17 07:50 | ECG_ITS ---
Measurements Intervals [place] Rate: 81 P: [place]: 0 QRS: 1 QRSD: 131 T: 45 QT: 434 QTc: 504 Interpretive Statements ATRIAL FIBRILLATION INTRAVENTRICULAR CONDUCTION DELAY [130+ ms QRS DURATION] COMPARED TO ECG 12/29/2022 12:30:22 PROLONGED QT INTERVAL NO LONGER PRESENT Electronically Signed On 02-17-2023 12:17:05 CDT by Grady Lindquist M.D.
[2023-02-17] MEDS: ONDANSETRON INJ 4 MG/2 ML VIAL IV PUSH (08:02)
--- NOTE | 2023-02-17 08:32 | ED.GENADULT ---
HPI - General Adult General Chief complaint: Shortness of Breath/Dyspnea Stated complaint: SOB Time Seen by Provider: 02/17/23 07:32 History of Present Illness HPI narrative: 77-year-old male with history of CHF presented to the emergency department for evaluation of worsening shortness of breath. Patient had a hospitalization at mid December for A-fib CHF. Patient states he had been on Lasix at that time but they stopped his Lasix due to an adverse reaction. Patient states he is still on some water pills. Patient states that since he was discharged she has been monitoring his weight and it has been fine. Patient reports over the last 2 days he has had increased water weight gain, increased lower extremity swelling and increased shortness of breath and cough. Patient denies any associated chest pain with this. Patient states he has been taking his hydrochlorothiazide spironolactone and other medications. Patient does have a past medical history of CHF, chronic kidney disease, atrial fibrillation, sleep apnea, type 2 diabetes, hypertension, coronary artery disease with 10 stents Related Data Home Medications Medication Instructions Recorded Confirmed clopidogrel 75 mg tablet 75 mg PO DAILY 04/12/21 02/17/23 doxazosin 2 mg tablet (Cardura) 2 mg PO HS 04/12/21 02/17/23 insulin detemir U-100 100 unit/mL 25 unit subcut HS 04/12/21 02/17/23 subcutaneous solution (Levemir U-100 Insulin) isosorbide mononitrate 120 mg 120 mg PO DAILY 04/12/21 02/17/23 tablet,extended release 24 hr acetaminophen 325 mg tablet 325 mg PO Q6H PRN Pain 01/27/22 02/17/23 alirocumab 150 mg/mL subcutaneous 150 mg subcut MONTHLY 01/27/22 02/17/23 pen injector (Praluent Pen) amiodarone 200 mg tablet 200 mg PO DAILY 01/27/22 02/17/23 amlodipine 5 mg tablet 10 mg PO DAILY 01/27/22 02/17/23 ascorbate calcium (vitamin C) 500 1,000 mg PO DAILY 01/27/22 02/17/23 mg tablet hydralazine 100 mg tablet 50 mg PO TID 01/27/22 02/17/23 levothyroxine 112 mcg tablet 88 mcg PO DAILY 01/27/22 02/17/23 (Euthyrox) losartan 50 mg tablet 25 mg PO DAILY 01/27/22 02/17/23 magnesium oxide 400 mg (241.3 mg 400 mg PO BID 01/27/22 02/17/23 magnesium) tablet metoprolol succinate 25 mg 25 mg PO DAILY 01/27/22 02/17/23 tablet,extended release 24 hr omega-3 fatty acids-vitamin E 1 cap PO DAILY 01/27/22 02/17/23 1,000 mg capsule pantoprazole 40 mg tablet,delayed 40 mg PO DAILY 01/27/22 02/17/23 release spironolactone 25 mg tablet 25 mg PO DAILY 01/27/22 02/17/23 warfarin 5 mg tablet 5 mg PO HS 01/27/22 02/17/23 allopurinol 300 mg tablet 300 mg PO DAILY 12/29/22 02/17/23 glipizide 10 mg tablet 10 mg PO BID 12/29/22 02/17/23 calcium 500 mg tablet 500 mg PO BID 02/17/23 02/17/23 cholecalciferol (vitamin D3) 50 50 mcg PO DAILY 02/17/23 02/17/23 mcg (2,000 unit) tablet (Vitamin D3) ferrous sulfate 325 mg (65 mg 325 mg PO DAILY 02/17/23 02/17/23 iron) tablet hydrochlorothiazide 25 mg tablet 25 mg PO DAILY 02/17/23 02/17/23 multivitamin,tx-minerals 1 tablet PO DAILY 02/17/23 02/17/23 nitroglycerin 0.4 mg sublingual 0.4 mg sublingual Q5M PRN Chest 02/17/23 02/17/23 tablet Pain ondansetron 8 mg disintegrating 8 mg PO Q8H PRN Nausea And Vomiting 02/17/23 02/17/23 tablet potassium chloride 10 mEq 10 meq PO BID 02/17/23 02/17/23 tablet,extended release Allergies Allergy/AdvReac Type Severity Reaction Status Date / Time exenatide [From [place]] AdvReac Gastrointestinal Verified 01/27/22 14:23 Upset [place]-TAM-YvL Reductase AdvReac Cramping Verified 08/26/21 15:10 Inhibitor of the [Ialdbvl-Xip-Sal Reductase Muscles Inhibitor] Review of Systems Review of Systems: All systems reviewed & are unremarkable except as noted in HPI and below PMFSH Past Medical History Medical History Aortic stenosis, mild Atrial fibrillation Chronic anticoagulation Chronic kidney disease Coronary artery diseas
[2023-02-17 08:33] LABS: Basophils Percent Auto 0.5 % (0.2-1.2); Eosinophils Absolute Auto 0.2 K/mm3 (0-0.3); Eosinophils Percent Auto 2.7 % (0-4.4); Hematocrit 31.3 % (42.0-52.0); Hemoglobin 9.7 g/dL (14.0-18.0); Immature Granulocyte Absolute 0.01 K/mm3 (0.00-0.031); Immature Granulocyte Percent A 0.1 % (0-0.5); Lymphocytes Absolute Auto 0.98 K/mm3 (0.9-3.2); Lymphocytes Percent Auto 12.7 % (18.3-44.2); Mean Corpuscular Hemoglobin 30.2 pg (26-34); Mean Corpuscular Volume 97.5 fl (80-100); Mean Platelet Volume 10.1 fl (7.4-10.4); Monocytes Absolute Auto 0.6 K/mm3 (0.1-0.6); Monocytes Percent Auto 7.9 % (2.6-8.5); Neutrophils Absolute Auto 5.9 K/mm3 (1.3-6.7); Neutrophils Percent Auto 76.1 % (45.5-73.1); Platelet Count Result 241 k/mm3 (150-375); Red Blood Count 3.21 M/mm3 (4.6-6.20); Red Cell Distribution Width 15.6 % (11.5-14.5); White Blood Count 7.7 K/mm3 (4.5-10.0)
[2023-02-17 08:44] LABS: Alanine Aminotransferase 19 U/L (6-50); Albumin Level 3.8 g/dL (3.5-5.1); Alkaline Phosphatase 95 U/L (38-126); Anion Gap 8 mmol/L (8-16); Aspartate Amino Transferase 20 U/L (17-59); Bilirubin,Total 0.5 mg/dL (0.2-1.3); Blood Urea Nitrogen 58 mg/dL (9-20); Calcium 8.9 mg/dL (8.4-10.2); Carbon Dioxide 22 mmol/L (22-30); Chloride 110 mmol/L (98-107); Estimated CRCL calculation 32 ml/min; Estimated Glomerular Filt Rate 26; Glucose 75 mg/dL (65-110); Potassium 4.1 mmol/L (3.4-5.0); Sodium 140 mmol/L (137-145)
[2023-02-17 08:49] LABS: INR 2.9; Partial Thromboplastin Time 49.5 SECONDS (22.3-36.8); Prothrombin Time 32.8 Seconds (11.1-14.7)
[2023-02-17 09:07] LABS: NT Pro B Type Natriuretic Pept 7560 pg/mL (19.9-100); Troponin I 0.093 ng/mL (0.000-0.034)
[2023-02-17 09:09] LABS: Influenza A QL RT-PCR Negative (Negative); Influenza B QL RT-PCR Negative (Negative); RSV RNA, RT-PCR Negative (Negative); SARS-CoV-2 RNA PCR Negative (Negative)
[2023-02-17] MEDS: CEFEPIME 2 GM/NS 50 ML 2 GM/50 ML BAG IVPB (10:02)
[2023-02-17] MEDS: FUROSEMIDE INJ 40 MG/4 ML VIAL IV PUSH (10:52)
--- NOTE | 2023-02-17 11:39 | PM.IMHP ---
H&P: HPI History of Present Illness Date/Time: 02/17/23 11:39 Chief Complaint: dyspnea Narrative: This elderly gentleman with known chronic diastolic congestive heart failure and chronic kidney disease and anemia of chronic kidney disease presented the emergency department today due to increasing shortness of breath and swelling of lower extremities. Over the last 2-3 days he has had increased cough and some diarrhea a few times per day. None today so far however. No bleeding with the. No fevers or chills or abdominal pain. He noted that he was becoming more short of breath and his feet were becoming more swollen. He denied noncompliance with medication or his low-salt diet. He is more short of breath with lying flat. He is short of breath with walking any distance. His cough has been productive of clear to white sputum. No hemoptysis. He denied any sore throat but does have some upper respiratory congestion. Of note, he was discharged from [facility] on January 03 after being treated for acute on chronic diastolic heart failure and possible pneumonia. He was sent home on daily furosemide. However, couple of weeks ago his primary physician discontinue that due to some issues with nausea. He denied chest pain palpitations syncope presyncope. Denied other GI or issues. Denied abnormal bleeding. Denied focal weakness or numbness. Does have generalized achiness and fatigue. He denied any exposure to ill individuals. Review of Systems Review of Systems: All systems reviewed & are unremarkable except as noted in HPI and below PMFSH Past Medical History Medical History Aortic stenosis, mild Atrial fibrillation Chronic anticoagulation Chronic kidney disease Coronary artery disease Heart failure with preserved ejection fraction Hypertension Hypothyroidism 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 History of percutaneous coronary intervention Family History Family History Father Cerebrovascular accident Diabetes mellitus Mother Diabetes mellitus Social History Social History Social History: Healthcare power of title attorney: Bhanu Yadav, son. Code status: Do not resuscitate. Years smoked: 20 Smoking status: Former smoker Tobacco type: cigars Second hand tobacco smoke exposure: No Additional smoking assessment comments: smoked 25 years ago Alcohol intake: current Substance use: current Substance use type: painkillers Lack of Transportation: No Lack of Food: Never True Current Housing: Decline to Answer Concerned About Future Housing: Decline to Answer Difficulty Paying Gas/Electric Bills: Decline to Answer Difficulty Paying for Meds: Decline to Answer Currently Unemployed: Decline to Answer Education: Don't Know Difficulty w/ Childcare or Family Care: Decline to Answer Additional living arrangements comments: with 2 sons. Lives in assisted living at [facility]. 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 Spiritual care concerns: No Meds Home Medications and Allergies Home Medications Medication Instructions Recorded Confirmed Type clopidogrel 75 mg tablet 75 mg PO DAILY 04/12/21 12/29/22 History doxazosin 2 mg tablet (Cardura) 2 mg PO HS 04/12/21 12/29/22 History insulin detemir U-100 100 unit/mL 25 unit subcut HS 04/12/21 12/29/22 History subcutaneous solution (Levemir U-100 Insulin) isosorbide mononitrate 120 mg 120 mg PO DAILY 04/12/21 12/29/22
--- NOTE | 2023-02-17 11:53 | PM.CNCAR ---
Assessment and Plan Assessment and plan (1) Acute on chronic diastolic (congestive) heart failure: Code(s): I50.33 - Acute on chronic diastolic (congestive) heart failure Status: Acute Assessment and Plan: Agree with intermittent IV diuresis. Will start Lasix 40mg IV BID. Please monitor strict I/Os, and close monitoring of renal function. Recent echocardiogram in 11/2022 shows LVEF 55-60%, mild , mild MR, mild TR, pulmonary hypertension. (2) Atrial fibrillation: Code(s): I48.91 - Unspecified atrial fibrillation Status: Acute Assessment and Plan: Rate controlled. Continue Amiodarone 200mg daily and beta matt. Continue Warfarin with goal INR of 2-3. (3) Chronic anticoagulation: Code(s): Z79.01 - assisted (current) use of anticoagulants Status: Acute Assessment and Plan: Continue Warfarin with goal INR of 2-3. (4) Elevated troponin: Code(s): R77.8 - Other specified abnormalities of plasma proteins Status: Acute Assessment and Plan: Trend troponin until peak. No chest pain. EKG without ischemic changes. Likely not ACS. History of Present Illness History of Present Illness Consult date/time: 02/17/23 11:53 Requesting physician: Santy De Los Santos MD Consult reason: congestive heart failure Reason For Visit: Congestive Heart Failure,Chronic Kidney Disease,Dy Narrative: We are consulted for decompensated heart failure and elevated troponin. This is a 77-year-old male with a history of coronary artery disease, atrial fibrillation, chronic kidney disease, insulin-dependent diabetes, hypertension, hyperlipidemia, sleep apnea, hypothyroidism who presented for worsening shortness of breath and lower extremity edema over past couple of days. Was admitted in December for acute on chronic diastolic heart failure and JOSE F on CKD. Patient states he usually has some swelling in his ankles, but it has gone up to the knees know. No chest pain. Reports full compliance with his medications at home. Patient noted to be satting 91% on room air on arrival to the ED, placed on supplemental oxygen with improvement. Given IV Lasix. Initial troponin at 0.093. BNP is higher than his previous admission in December. EKG showing rate controlled atrial fibrillation without ischemic changes. 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 History of percutaneous coronary intervention Family History Family History Father Cerebrovascular accident Diabetes mellitus Mother Diabetes mellitus Social History Social History Social History: Healthcare power of attorney lawyer: Bhanu Yadav, son. Code status: Do not resuscitate. Years smoked: 20 Smoking status: Former smoker Tobacco type: cigars Second hand tobacco smoke exposure: No Additional smoking assessment comments: smoked 25 years ago Alcohol intake: current Substance use: current Substance use type: painkillers Lack of Transportation: No Lack of Food: Never True Current Housing: Decline to Answer Concerned About Future Housing: Decline to Answer Difficulty Paying Gas/Electric Bills: Decline to Answer Difficulty Paying for
[2023-02-17 12:01] LABS: Troponin I 0.094 ng/mL (0.000-0.034)
[2023-02-17 14:03] LABS: Glucose Point of Care 92 mg/dl (65-105)
--- NOTE | 2023-02-17 15:23 | PC.NURSE ---
[facility] flyer was given to patient.
[2023-02-17] MEDS: ONDANSETRON HCL ODT 4 MG TABLET 8 MG (15:36)
--- NOTE | 2023-02-17 15:42 | PC.NURSE ---
[address] Admission Note: The patient,Nigel Wang,77 y/o, was given written information regarding hospital policies was admitted to room 202 from ED at 1415, unit procedures and contact persons. Patient's smoking status: Former smoker.
[2023-02-17 16:37] LABS: CRP 2.8 mg/dL (<1.0)
[2023-02-17] MEDS: BUMETANIDE INJ 1 MG/4 ML VIAL IV PUSH (16:55)
[2023-02-17 16:58] LABS: Procalcitonin 0.2 ng/mL
[2023-02-17 17:09] LABS: Glucose Point of Care 111 mg/dl (65-105)
[2023-02-17 17:11] LABS: Glucose Point of Care 110 mg/dl (65-105)
[2023-02-17 17:12] LABS: Thyroid Stimulating Hormone Reflex < 0.015 uIU/mL (0.465-4.68)
[2023-02-17] MEDS: PROMETHAZINE HCL 25 MG/ML AMPUL 12.5 MG IV PUSH (17:38)
--- NOTE | 2023-02-17 17:48 | PC.NURSE ---
Pt is refusing all PM medication at this time due to Nausea and burning in stomach has been trying to vomit, this nurse made Dr Cruz aware and he placed order for Compazine 12.5 mg PRN this nurse gave and pt cont to refuse Coumadin at this time made aware
--- NOTE | 2023-02-17 19:11 | PCRCNOTE ---
pt not tolerating BIPAP. informed pt placed on NRB 15 Liters. Sp02 91%, RR-32.
--- NOTE | 2023-02-17 19:24 | ECG_ITS ---
Measurements Intervals [place] Rate: 91 P: VT: 0 QRS: 204 QRSD: 134 T: 112 QT: 391 QTc: 481 Interpretive Statements ATRIAL FIBRILLATION INTRAVENTRICULAR CONDUCTION DELAY [130+ ms QRS DURATION] ARM LEAD REVERSAL PRESENT COMPARED TO ECG 02/17/2023 07:28:48 LEAD REVERSAL PRESENT Electronically Signed On 02-18-2023 13:39:50 CDT by Grady Lindquist M.D.
[2023-02-17 19:44] LABS: Base Excess ABG -6.8 mEq/l (+/-2.0); Fractional Inspired Oxygen 90 %; HCO3 ABG 19.2 mEq/l (22.0-26.0); Oxygen Content ABG 14.6 %vol (16.0-22.0); Oxygen Saturation ABG 96.1 % (95.0-100.0); Oxyhemoglobin 94.4 % THb (90.0-100.0); PCO2 ABG 40.4 mmHg (35.0-45.0); PO2 ABG 90.3 mmHg (80.0-100.0); Total Hemoglobin 10.9 g/dL (12.0-18.0)
[2023-02-17 19:49] LABS: Modified Allen's Test Pass; Site Drawn RIGHT BRACHIAL; pH ABG 7.295 (7.350-7.450)
[2023-02-17 19:50] LABS: Device NON-REBREATHER MASK
--- NOTE | 2023-02-17 19:56 | PC.NURSE ---
Pt gave verbal confirmation to code status that he is a DNR pt is axox3
[2023-02-17 20:16] LABS: Glucose Point of Care 168 mg/dl (65-105)
[2023-02-17] MEDS: SODIUM BICARBONATE 8.4% 50 MEQ/50 ML SYRINGE (20:17)
[2023-02-17] MEDS: BUMETANIDE INJ 1 MG/4 ML VIAL 2 MG IV PUSH (20:17)
[2023-02-17 20:27] LABS: Troponin I 0.069 ng/mL (0.000-0.034)
[2023-02-17] MEDS: LEVALBUTEROL NEB 1.25 MG/3 ML INHALATION (21:52)
[2023-02-17] MEDS: IPRATROPIUM BR 0.02% INH SOLN 0.5 MG/2.5 ML VIAL INHALATION (21:52)
--- NOTE | 2023-02-17 22:01 | PC.NURSE ---
Attempted to call Bhanu Shabazzdavisparul, (son), POA to give him an update on his father regarding increasing oxygen demand. Message left on voice mail to call me back.
--- NOTE | 2023-02-17 22:30 | PM.EVENT ---
Event Note Event Note Event Note: 02/17/2023 at 20:15 Patient has chronic kidney disease stage III and pulmonary hypertension with history of AFib. He is therapeutic on his Coumadin. He is admitted for CHF exacerbation jessica and has developed respiratory distress. Patient has required increasing amounts of oxygen since arrival to the hospital. Right before shift change the patient was moved to the IMU and placed on BiPAP. The patient did not tolerate BiPAP. He was dyssynchronous with the BiPAP and was ripping it off. He was not maintaining his oxygen saturations on high-flow nasal cannula. Respiratory therapy put the patient on non-rebreather any was maintaining oxygen saturations in the upper 90s. It weaned the non-rebreather down to 8 L initially and the patient was maintaining his oxygen saturations but still complaining that he could not breathe. I after sign-out I went and evaluated the patient. He was in breathing about 25 times a minute with abdominal respirations. He had expiratory wheezing anterior and posterior morelos right greater than left. He had some crackles at the bases. He was cool but not diaphoretic. He was alert oriented x3. He was in AFib with heart rate ranging between 100-120. The patient reports that he has had some hypotension at home yesterday but blood pressures improved without intervention. He received 1 dose of 1 mg IV Bumex earlier in the day with only 100 mL of urine output. A 2nd dose of 2 mg of Bumex was provided approximately 2 hours ago and the patient is still only had another 100 mL of urine output. The patient denies any chest pain. Due to the patient's respiratory symptoms I have went into the room to evaluate him multiple times. He reconfirms that he does not want intubation or CPR. During my last evaluation the patient's blood pressures did briefly dropped to 75 over 40. His mean arterial pressures were still 61. I did discuss the potential for central line placement with the patient a but he was confused at that time his oxygen saturations had dropped to the low 80s with nebulizer treatment. While the the patient's oxygen was being switched back over he did drop briefly down to 76. He was placed back on the non-rebreather at 10 L with improvement in oxygen saturations between 88 and 92. Nursing staff had tried to call the patient's family from the desk phone earlier in the evening without response. We did ask the patient open his phone and called and talked to the patient's [id number] and son who are his POA. I explained to them the patient's condition in that if he does not want intubation or further resuscitation that there is not much else we can do for him. I did have nursing staff repeat the place since blood pressure several times and the patient's blood pressure had improved between 102 systolic up to 110 systolic. At this time I am going to place half an inch of nitropaste on the patient to see if this does not help with some of the patient's issues with pre load. If the nitropaste does not work and the patient is still this uncomfortable we can either try Ativan and then place patient on BiPAP or simply make the patient comfort measures. These options were discussed with the patient and with the patient's family over the phone. The family is on their way in to see the patient. 100 minutes spent in critical care activities. Due to a high probability of clinically significant, life threatening deterioration, the patient required my highest level of preparedness to intervene emergently and I personally spent this critical care time directly and personally managing the patient. This critical care time included obtaining a history; examining the patient; pulse oximetry; ordering and review of studies; arranging urgent treatment with development of a management plan; evaluation of patient's response to treatment; frequent reassessment; and discussions with other providers. It was exclusive of [facility]
[2023-02-17] MEDS: NITROGLYCERIN OINTMENT 1 INCH DOSE 0.5 INCH TRANSDERM (22:50)
--- NOTE | 2023-02-17 22:57 | PC.NURSE ---
Addendum entered by Sylvia Lama RN 02/17/23 23:08: Family was contacted at [phone]. Original Note: Was able to reach Alesia Wang (NOEMI) by patients phone. Her number is [phone]. Update given regarding low blood pressure, 15L non rebreather. Dr. Braun at bedside and also spoke with Alesia. Patient still wanting DNR status and does not want to be intubated and placed on a ventilator. Family will come in to see patient.
--- NOTE | 2023-02-17 23:07 | PC.NURSE ---
Family here to see patient, son, DIL, and . Update given.
[2023-02-18] VITALS (21 sets, daily range): BP systolic 83–137; BP diastolic 44–77; PULSE 93–108; RESP 16–28; TEMP 36.1–37.3; O2SAT 90–97
--- NOTE | 2023-02-18 00:44 | PC.NURSE ---
Patient called me into the room stating I can't breathe . Patient repositioned, family at bedside. I had a long discussion with Bhanu (son) and Alesia (DIL) regarding comfort measures. Dr. Braun notified of discussion. Will make comfort measures and place order for Morphine and Ativan. Patient remains alert and again does not want to be intubated and placed on a ventilator.
[2023-02-18] MEDS: MORPHINE SULFATE (*CRX) 2 MG/ML INJ IV PUSH ×3 (01:10→09:57)
[2023-02-18] MEDS: LORazepam INJ (*CRX) 2 MG/ML VIAL 0.5 MG IV PUSH ×2 (02:15→06:44)
[2023-02-18 07:36] LABS: Free T4 Free Thyroxine Reflex 2.59 ng/dL (0.78-2.19)
[2023-02-18 07:54] LABS: Glucose Point of Care 221 mg/dl (65-105)
--- NOTE | 2023-02-18 10:58 | PC.NURSE ---
This patient, Nigel Wang, was transferred to [facility] on 02/18/23 at 1058. Personal belongings sent with patient. Report given to RN. Appropriate documentation sent with patient.
--- NOTE | 2023-02-18 11:49 | PM.IMPN ---
Progress Note: A&P Assessment and Plan (1) Acute on chronic diastolic (congestive) heart failure: Code(s): I50.33 - Acute on chronic diastolic (congestive) heart failure Status: Acute Assessment and Plan: Feeling better with nitro, morphine Sats still only upper 80's on NRB D/w Dr. Ayala in ICU and will transfer their (2) Chronic kidney disease: Code(s): N18.9 - Chronic kidney disease, unspecified Status: Acute Assessment and Plan: Urine output improved a bit overnight Nephrology consulted (3) Viral syndrome: Code(s): B34.9 - Viral infection, unspecified Status: Acute Assessment and Plan: Is syndrome of cough productive of clear to white sputum gastrointestinal upset with some diarrhea and upper respiratory congestion are more consistent with a viral syndrome than with bacterial pneumonia He received 1 dose of cefepime in the emergency department CRP 2.8, procalcitonin 0.2 (4) Elevated troponin: Code(s): R77.8 - Other specified abnormalities of plasma proteins Status: Acute Assessment and Plan: Likely due to acute on chronic congestive heart failure in the setting of chronic kidney disease stage IIIB (5) Hypertension: Code(s): I10 - Essential (primary) hypertension Status: Acute (6) Hypothyroidism: Code(s): E03.9 - Hypothyroidism, unspecified Status: Acute (7) Type 2 diabetes mellitus: Code(s): E11.9 - Type 2 diabetes mellitus without complications Status: Acute (8) Atrial fibrillation: Code(s): I48.91 - Unspecified atrial fibrillation Status: Acute (9) Proteinuria: Code(s): R80.9 - Proteinuria, unspecified Status: Acute (10) Chronic anticoagulation: Code(s): 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 Met with patient and his family at bedside. Upon further discussion with patient he now wishes to resume treatment of his condition rather than be comfort care only. He said he will submit to tracheal intubation if it is only temporary. He wishes to rescind his DNR status. He will submit to dialysis if necessary again only if it is temporary. Currently he is feeling better than last night. He ate a cinnamon roll and drink some liquids this morning. He is not feeling short of breath at rest. He is not having abdominal discomfort. Review of Systems Review of Systems: All systems reviewed & are unremarkable except as noted in HPI and below Exam Narrative: HEENT: EOMI, PERRL, sclerae nonicteric, pharyngeal mucosa pink and intact NECK: Mild JVD CHEST: BILATERAL BASILAR CRACKLES, MILDLY TACHYPNEIC HEART: NL S1/S2, regular, 2/6 SYSTOLIC EJECTION MURMUR RIGHT UPPER STERNAL BORDER ABDOMEN: BS+, soft, nontender, no mass, no bruits EXTREMITIES: 1+ PITTING EDEMA OF FEET ANKLES AND DISTAL LEGS THAT APPEARS TO BE SUPERIMPOSED ON SOME NONPITTING EDEMA NEUROLOGIC: CN intact and symmetric to inspection. MUSCULOSKELETAL: Tone and strength symmetric. PSYCH: Alert, pleasant and cooperative. Objective Data Vital Signs Vital Signs: Vital Signs - 24 hr 02/17/23 12:16 02/17/23 13:16 02/17/23 13:31 Temperature Pulse Rate 76 82 93 Respiratory Rate 20 21 H 22 H Blood Pressure 104/48 L 151/90 H 141/95 H Pulse Oximetry 89 L 92 94 Oxygen Delivery Oxygen Flow Rate 02/17/23 14:44 02/17/23 16:00 02/17/23 16:00 Temperature 96.9 F L Pulse Rate 82 77 77 Respiratory Rate 28 H 28 H Blood Pressure 117/44 L Pulse Oximetry 94 94 Oxygen Delivery Nasal Cannula Oxygen Flow Rate 4 02/17/23 16:00 02/17/23 18:00 02/17/23 18:50 Temperature 97.1 F L Pulse Rate 90 107 H Respiratory Rate 20 Blood Pressure 101/34 L Pulse Oximetry 90 90 Oxygen Delivery High Flow Nasal Cannula Oxygen Flow Rate 8 02/17/23 20:32 04
[2023-02-18 12:16] LABS: Alveolar/Arterial O2 Gradient 305.3 mmHg; Base Excess ABG -5.9 mEq/l (+/-2.0); Fractional Inspired Oxygen 60 %; Oxygen Content ABG 14.8 %vol (16.0-22.0); Oxygen Saturation ABG 94.4 % (95.0-100.0); Oxyhemoglobin 93.4 % THb (90.0-100.0); PCO2 ABG 40.8 mmHg (35.0-45.0); PO2 ABG 77.6 mmHg (80.0-100.0); PO2 FiO2 Ratio Arterial Blood 1.29 %; Total Hemoglobin 11.2 g/dL (12.0-18.0); pH ABG 7.308 (7.350-7.450)
[2023-02-18 12:18] LABS: Device NON-REBREATHER MASK; Modified Allen's Test Pass; Site Drawn RIGHT RADIAL
--- NOTE | 2023-02-18 12:43 | WPDCNINT ---
Assessment and Plan Assessment and plan (1) Acute respiratory failure: Code(s): J96.00 - Acute respiratory failure, unspecified whether with hypoxia or hypercapnia Status: Acute Assessment and Plan: Acute respiratory failure likely secondary to pulmonary edema secondary to congestive heart failure and chronic kidney disease leading to volume overload Pneumonia unlikely possibility as patient is afebrile, normal WBC and low procalcitonin level Blood cultures have been sent and are pending. continue empiric antibiotics for now Patient has been poorly responsive to IV Lasix. Will start IV Lasix infusion Currently saturating adequately on 10 L face mask and will be continued ABG reviewed and shows no hypercarbia Chest x-ray reviewed shows bilateral infiltrates Patient did not tolerate BiPAP last night but does not remember and currently denies any nausea vomiting Will retry BiPAP if needed but patient may need intubation and mechanical ventilation hypoxia worsens or patient was respiratory distress and does not tolerate NIPPV (2) CHF (congestive heart failure): Qualifiers: Heart failure chronicity: unspecified Heart failure type: unspecified Qualified Code(s): I50.9 - Heart failure, unspecified Code(s): I50.9 - Heart failure, unspecified Status: Acute Assessment and Plan: Echo Summary ? 1. Complete two-dimensional, color flow and Doppler transthoracic echocardiogram is performed. ? 2. Left ventricular chamber dimension is normal. ? 3. Left ventricular systolic function is normal, estimated at 55-60%. ? 4. There is mildly increased left ventricular wall thickness. ? 5. Global longitudinal strain is abnormal at -12 %. ? 6. Right ventricular systolic function is normal. ? 7. Left atrial chamber dimension is moderately enlarged. ? 8. Right atrial chamber dimension is mildly enlarged. ? 9. There is moderate aortic valve calcification. ? 10. There is mild aortic valve stenosis with a peak velocity of 245 cm/s, mean gradient of 12 mmHg, and aortic valve area of 1.9 cm2. ? 11. The mitral valve annulus is mildly calcified. ? 12. There is mild mitral valve regurgitation. ? 13. There is mild tricuspid valve regurgitation. ? 14. Pulmonary hypertension with estimated PASP of 52mmHg. Cardiology following Lasix infusion for volume overload May need ionotropic support (3) Chronic kidney disease: Code(s): N18.9 - Chronic kidney disease, unspecified Status: Acute Assessment and Plan: Patient has chronic kidney disease and baseline creatinine is close to 2 Electrolytes have been acceptable tele but patient has volume overload Patient has been poorly responsive to IV bolus Lasix Will start IV Lasix infusion Patient may need MEDIA [employer]OB [employer]ITLES Consult nephrology Check electrolytes (4) Pneumonia: Qualifiers: Laterality: unspecified laterality Lung location: unspecified part of lung Pneumonia type: due to unspecified organism Qualified Code(s): J18.9 - Pneumonia, unspecified organism Code(s): J18.9 - Pneumonia, unspecified organism Status: Acute Assessment and Plan: See above (5) Type 2 diabetes mellitus: Code(s): E11.9 - Type 2 diabetes mellitus without complications Status: Acute Assessment and Plan: SSI and Lantus (6) Atrial fibrillation: Code(s): I48.91 - Unspecified atrial fibrillation Status: Acute Assessment and Plan: Continue p.o. amiodarone Hold anticoagulation (7) Chronic anticoagulation: Code(s): Z79.01 - skilled nursing (current) use of anticoagulants Status: Acute Assessment and Plan: Hold warfarin anticoagulation as patient will likely need invasive procedures Plan DVT prophylaxis -anticoagulated with warfarin Stress ulcer prophylaxis -already on PPI Nutrition -diabetic diet Code Status -I had extensive discussion with patient in presence of his son and his . Patient was adamant that he does
--- NOTE | 2023-02-18 13:14 | PM.PNCARD ---
Progress Note: A&P Assessment and Plan (1) Acute on chronic diastolic (congestive) heart failure: Code(s): I50.33 - Acute on chronic diastolic (congestive) heart failure Status: Acute Assessment and Plan: Recent echocardiogram in 11/2022 shows LVEF 55-60%, mild , mild MR, mild TR, pulmonary hypertension. Worsening respiratory status with CXR now showing bilateral pleural effusions and diffuse pulmonary edema. ICU team consulted and given his respiratory status, will be moved to the ICU. Will try Lasix bolus + drip for diuresis. May be difficult to diuresis given his renal dysfunction. If he does not respond, can try Dopamine to increase his renal perfusion to assist with diuresis. Nephrology consulted as well. (2) Atrial fibrillation: Code(s): I48.91 - Unspecified atrial fibrillation Status: Acute Assessment and Plan: Continue Amiodarone 200mg daily and beta matt. Continue Warfarin with goal INR of 2-3. 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 (4) Elevated troponin: Code(s): R77.8 - Other specified abnormalities of plasma proteins Status: Acute Assessment and Plan: No chest pain. EKG without ischemic changes. Likely not ACS. Likely due to decompensated heart failure. Subjective Date/time seen: 02/18/23 13:14 Interval history: Reason for visit: Decompensated diastolic heart failure. HPI: This is a 77-year-old male with a history of coronary artery disease, atrial fibrillation, chronic kidney disease, insulin-dependent diabetes, hypertension, hyperlipidemia, sleep apnea, hypothyroidism who presented for worsening shortness of breath and lower extremity edema over past couple of days. Was admitted in December for acute on chronic diastolic heart failure and JOSE F on CKD. Patient states he usually has some swelling in his ankles, but it has gone up to the knees know. No chest pain. Reports full compliance with his medications at home. Patient noted to be satting 91% on room air on arrival to the ED, placed on supplemental oxygen with improvement. Given IV Lasix. Initial troponin at 0.093. BNP is higher than his previous admission in December. EKG showing rate controlled atrial fibrillation without ischemic changes. Date of service 02/18: Overnight, patient with worsening respiratory distress. Needed BIPAP but was not tolerating it. Minimal urine output with the Lasix, and was changed to Bumex. Overnight team had discussions with the patient and family, and since he was not tolerating BIPAP, patient had initially just wanted to be comfort care, so comfort care measures were initiated, however, this morning, patient changed his mind. Currently on non-rebreather with shortness of breath. Still with significant bilateral lower extremity edema. Review of Systems Review of Systems: 8 point ROS obtained. Negative, unless stated in HPI. Exam Const: General: no acute distress Other: On nonrebreather Eyes: General: appearance normal, both eyes and all related structures Sclera: sclerae normal Neck: Neck: supple Resp: Other: On nonrebreather. Decreased breath sounds bilaterally Cardio: Rate: tachycardic Rhythm: abnormal rhythm irregularly irregular Neuro: Speech: normal speech Extrem: Other: 3+ bilateral lower extremity edema Psych: Mental Status: mental status grossly normal Affect: normal affect Objective Data Vital Signs Vital Signs: Vital Signs - 24 hr 02/17/23 13:16 02/17/23 13:31 02/17/23 14:44 Temperature 36.1 C L Pulse Rate 82 93 82 Respiratory Rate 21 H 22 H 28 H Blood Pressure 151/90 H 141/95 H 117/44 L Pulse Oximetry 92 94 94 Oxygen Delivery Oxygen Flow Rate 02/17/23 16:00 02/17/23 16:00 02/17/23 16:00 Temperature 36.2 C L Pulse Rate 77 77 90 Respiratory Rate 28 H 20 Bloo
[2023-02-18] MEDS: FUROSEMIDE INJ 100 MG/10 ML VIAL 80 MG IV PUSH (13:24)
[2023-02-18 13:30] LABS: Anion Gap 10 mmol/L (8-16); Blood Urea Nitrogen 74 mg/dL (9-20); Calcium 8.7 mg/dL (8.4-10.2); Carbon Dioxide 23 mmol/L (22-30); Chloride 107 mmol/L (98-107); Estimated CRCL calculation 23 ml/min; Estimated Glomerular Filt Rate 18; Glucose 186 mg/dL (65-110); Potassium 4.9 mmol/L (3.4-5.0); Sodium 140 mmol/L (137-145)
[2023-02-18 13:52] LABS: Glucose Point of Care 186 mg/dl (65-105)
[2023-02-18] MEDS: CEFEPIME 2 GM/NS 50 ML 2 GM/50 ML BAG IVPB (13:52)
[2023-02-18] MEDS: FUROSEMIDE INJ 100 MG in SODIUM CHLORIDE 0.9% IV 90 ML IV CONT (14:13)
[2023-02-18 16:44] LABS: Glucose Point of Care 180 mg/dl (65-105)
--- NOTE | 2023-02-18 18:00 | PCRCNOTE ---
Per RN pt wants to eat so we switched pt from 15L NRB to 15L HFNC.
[2023-02-18 20:19] LABS: Glucose Point of Care 238 mg/dl (65-105)
[2023-02-19] VITALS (24 sets, daily range): BP systolic 110–136; BP diastolic 64–93; PULSE 80–103; RESP 16–29; TEMP 36.1–37.3; O2SAT 93–98
[2023-02-19 00:27] LABS: Glucose Point of Care 265 mg/dl (65-105)
[2023-02-19 03:55] LABS: Hematocrit 33.5 % (42.0-52.0); Mean Corpuscular HGB Conc 29.9 g/dl (32-36); Mean Corpuscular Hemoglobin 29.9 pg (26-34); Mean Corpuscular Volume 100.3 fl (80-100); Platelet Count Result 241 k/mm3 (150-375); Red Blood Count 3.34 M/mm3 (4.6-6.20); Red Cell Distribution Width 15.9 % (11.5-14.5); White Blood Count 9.6 K/mm3 (4.5-10.0)
[2023-02-19 03:56] LABS: Mean Platelet Volume 10.6 fl (7.4-10.4)
[2023-02-19 04:09] LABS: Alanine Aminotransferase 20 U/L (6-50); Albumin Level 3.7 g/dL (3.5-5.1); Alkaline Phosphatase 97 U/L (38-126); Anion Gap 10 mmol/L (8-16); Aspartate Amino Transferase 24 U/L (17-59); Bilirubin,Total 0.5 mg/dL (0.2-1.3); Blood Urea Nitrogen 79 mg/dL (9-20); Calcium 8.5 mg/dL (8.4-10.2); Carbon Dioxide 24 mmol/L (22-30); Chloride 105 mmol/L (98-107); Estimated CRCL calculation 21 ml/min; Estimated Glomerular Filt Rate 16; Glucose 274 mg/dL (65-110); Magnesium 2.4 mg/dL (1.6-2.3); Potassium 4.9 mmol/L (3.4-5.0); Sodium 139 mmol/L (137-145)
[2023-02-19] MEDS: LEVOTHYROXINE SODIUM 88 MCG TABLET PO (06:29)
[2023-02-19 07:46] LABS: Glucose Point of Care 244 mg/dl (65-105)
[2023-02-19] MEDS: FUROSEMIDE INJ 100 MG in SODIUM CHLORIDE 0.9% IV 90 ML IV CONT (07:48)
[2023-02-19] MEDS: CLOPIDOGREL BISULFATE 75 MG TABLET PO (09:14)
[2023-02-19] MEDS: PANTOPRAZOLE 40 MG TABLET PO (09:14)
[2023-02-19] MEDS: TRIAMCINOLONE ACET 0.1% OINT 15 GM TUBE 1 APPLIC TOPICAL (09:15)
[2023-02-19] MEDS: THERAPEUTIC MULTIVITAMINS/MINERALS TAB (*BKC) 1 TABLET PO (09:15)
[2023-02-19] MEDS: AMIODARONE HCL 200 MG TABLET PO (09:16)
[2023-02-19] MEDS: METOPROLOL TARTRATE 25 MG TABLET PO ×2 (09:18→20:15)
[2023-02-19] MEDS: INSULIN ASPART (*BKC) 100 UNITS/ML SUB-Q ×3 (09:20→16:58)
[2023-02-19] MEDS: INSULIN GLARGINE (*BKC) 100 UNITS/ML 20 UNITS SUB-Q (09:21)
[2023-02-19 09:24] LABS: INR 3.3
--- NOTE | 2023-02-19 10:22 | PM.CNNEP ---
Assessment and Plan Assessment and plan (1) JOSE F (acute kidney injury): Code(s): N17.9 - Acute kidney failure, unspecified Status: Acute Assessment and Plan: acute versus progression of disease (see #2) acute CHF and necessity of high dose diuretics likely playing a role as well perhaps a component of renal hypoperfusion soft BPs contributing but better hemodynamics noted at this time not opposed to trial of dopamine or perhaps midodrine (but not clear if he would really benefit) urine electrolytes difficult to interpret given high dose diuretics renal ultrasound (done a month ago) with any acute issue/problems remains at risk for 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 particularly if conservative therapy fails to improve his volume status continue diuretic gtt follow repeat labs and UOP (2) Chronic kidney disease, stage 3b: Code(s): N18.32 - Chronic kidney disease, stage 3b Status: Chronic Assessment and Plan: baseline creatinine runs ~ 2.0mg/dl due to HTN, DM, CHF, vascular disease, EILEEN/pulmonary hypertension, and age-related change however, from his last hospitalization a month ago her, his creatinine was running higher due to diuresis and need for high dose diuretics this may have led to some CKD progression to CKD stage 4 versus the fact that he needs a higher creatinine to achieve relative euvolemia follows with Dr. Rodriguez for management of his CKD (3) Acute respiratory failure: Code(s): J96.00 - Acute respiratory failure, unspecified whether with hypoxia or hypercapnia Status: Acute Assessment and Plan: secondary to pulmonary edema from CHF and advancing CKD possible pneumonia playing a role but seems less likely follow culture data - on empiric antibiotics NRB for respiratory support continue attempts at diuresis (4) CHF (congestive heart failure): Code(s): I50.9 - Heart failure, unspecified Status: Acute Assessment and Plan: acute on chronic (diastolic) on lasix gtt with marginal improvement in UOP recent Echo noted Cardiology following (5) Atrial fibrillation: Qualifiers: Atrial fibrillation type: paroxysmal Qualified Code(s): I48.0 - Paroxysmal atrial fibrillation Code(s): I48.91 - Unspecified atrial fibrillation Status: Acute Assessment and Plan: continue rate control strategy anticoagulation on hold (6) Type 2 diabetes mellitus: Code(s): E11.9 - Type 2 diabetes mellitus without complications Status: Acute Assessment and Plan: follow accuchecks on SSI and Lantus per intensivisit/hospitalists Long extensive discussion (greater than 25 minutes) with the patient regarding his worsening renal dysfunction in combination with his volume/fluid overload and the concern that conservative therapy may not optimize his respiratory status. I also voiced my concerns that he may require renal replacement therapy/dialysis to better control his fluid status if diuretics are not enough to achieve this. He seemed to be quite resistant to the idea of renal replacement therapy/dialysis whether it be temporary or long-term. I will continue to follow patient with you while he means hospitalized and make further recommendations during his hospital course Thank you for allowing me to participate in the care this patient. History of Present Illness Reason for Consult Consult date: 02/19/23 Reason for consult: acute renal failure (on chronic kidney disease) Chief Complaint Chief complaint: Congestive Heart Failure,Chronic Kidney Disease,Dy History of Present Illness Narrative: The patient is 77-year-old male with a past medical history as outlined below who presented to [facility] Emergency Room with complaints of shortness of breath and increasing swelling of his lower extremities. The patient reports that his shortness of breath has been going on for last few da
--- NOTE | 2023-02-19 10:22 | P.CONNP_ITS ---
Assessment and Plan Assessment and plan (1) JOSE F (acute kidney injury): Code(s): N17.9 - Acute kidney failure, unspecified Status: Acute Assessment and Plan: * acute versus progression of disease (see #2) * acute CHF and necessity of high dose diuretics likely playing a role as well * perhaps a component of renal hypoperfusion soft BPs contributing but better hemodynamics noted at this time * not opposed to trial of dopamine or perhaps midodrine (but not clear if he would really benefit) * urine electrolytes difficult to interpret given high dose diuretics * renal ultrasound (done a month ago) with any acute issue/problems * remains at risk for needing/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/dialysis particularly if conservative therapy fails to improve his volume status * continue diuretic gtt * follow repeat labs and UOP (2) Chronic kidney disease, stage 3b: Code(s): N18.32 - Chronic kidney disease, stage 3b Status: Chronic Assessment and Plan: * baseline creatinine runs ~ 2.0mg/dl * due to HTN, DM, CHF, vascular disease, EIELEN/pulmonary hypertension, and age- related change * however, from his last hospitalization a month ago her, his creatinine was running higher due to diuresis and need for high dose diuretics * this may have led to some CKD progression to CKD stage 4 versus the fact that he needs a higher creatinine to achieve relative euvolemia * follows with Dr. Rodriguez for management of his CKD (3) Acute respiratory failure: Code(s): J96.00 - Acute respiratory failure, unspecified whether with hypoxia or hy percapnia Status: Acute Assessment and Plan: * secondary to pulmonary edema from CHF and advancing CKD * possible pneumonia playing a role but seems less likely * follow culture data - on empiric antibiotics * NRB for respiratory support * continue attempts at diuresis (4) CHF (congestive heart failure): Code(s): I50.9 - Heart failure, unspecified Status: Acute Assessment and Plan: * acute on chronic (diastolic) * on lasix gtt with marginal improvement in UOP * recent Echo noted * Cardiology following (5) Atrial fibrillation: Qualifiers: Atrial fibrillation type: paroxysmal Qualified Code(s): I48.0 - Paroxysmal atrial fibrillation Code(s): I48.91 - Unspecified atrial fibrillation Status: Acute Assessment and Plan: * continue rate control strategy * anticoagulation on hold (6) Type 2 diabetes mellitus: Code(s): E11.9 - Type 2 diabetes mellitus without complications Status: Acute Assessment and Plan: * follow accuchecks * on SSI and Lantus per intensivisit/hospitalists Long extensive discussion (greater than 25 minutes) with the patient regarding his worsening renal dysfunction in combination with his volume/fluid overload and the concern that conservative therapy may not optimize his respiratory status. I also voiced my concerns that he may require renal replacement therapy/dialysis to better control his fluid status if diuretics are not enough to achieve this. He seemed to be quite resistant to the idea of renal repla cement therapy/dialysis whether it be temporary or long-term. I will continue to follow patient with you while he means hospitalized and make further recommendations during his hospital course Thank you for allowing me to participate in the care this patient. History of Present Illness Reason for Consult Consult date: 02/19/23 Reason for consult: acute renal failure (on chronic kidney disease) Chief Complaint
--- NOTE | 2023-02-19 10:59 | WPDINTPN ---
Progress Note: A&P Assessment and Plan (1) Acute respiratory failure: Code(s): J96.00 - Acute respiratory failure, unspecified whether with hypoxia or hypercapnia Status: Acute Assessment and Plan: Acute respiratory failure likely secondary to pulmonary edema secondary to congestive heart failure and chronic kidney disease leading to volume overload Pneumonia unlikely possibility as patient is afebrile, normal WBC and low procalcitonin level Blood cultures have been sent and are pending. continue empiric antibiotics for now Patient has been poorly responsive to IV Lasix. 02/18 He was started on iV Lasix infusion and his urine output has improved Currently on non-rebreather face mask and will be continued. Continue BiPAP as tolerated p.r.n. and at night ABG on admission shows no hypercarbia Chest x-ray reviewed shows bilateral infiltrates Patient may need intubation and mechanical ventilation hypoxia worsens or patient was respiratory distress and does not tolerate NIPPV (2) CHF (congestive heart failure): Qualifiers: Heart failure chronicity: unspecified Heart failure type: unspecified Qualified Code(s): I50.9 - Heart failure, unspecified Code(s): I50.9 - Heart failure, unspecified Status: Acute Assessment and Plan: Echo Summary ? 1. Complete two-dimensional, color flow and Doppler transthoracic echocardiogram is performed. ? 2. Left ventricular chamber dimension is normal. ? 3. Left ventricular systolic function is normal, estimated at 55-60%. ? 4. There is mildly increased left ventricular wall thickness. ? 5. Global longitudinal strain is abnormal at -12 %. ? 6. Right ventricular systolic function is normal. ? 7. Left atrial chamber dimension is moderately enlarged. ? 8. Right atrial chamber dimension is mildly enlarged. ? 9. There is moderate aortic valve calcification. ? 10. There is mild aortic valve stenosis with a peak velocity of 245 cm/s, mean gradient of 12 mmHg, and aortic valve area of 1.9 cm2. ? 11. The mitral valve annulus is mildly calcified. ? 12. There is mild mitral valve regurgitation. ? 13. There is mild tricuspid valve regurgitation. ? 14. Pulmonary hypertension with estimated PASP of 52mmHg. 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 need CLOTH PICKER Consulted nephrology Acceptable electrolytes and acid-base status at this time (4) Pneumonia: Qualifiers: Laterality: unspecified laterality Lung location: unspecified part of lung Pneumonia type: due to unspecified organism Qualified Code(s): J18.9 - Pneumonia, unspecified organism Code(s): J18.9 - Pneumonia, unspecified organism Status: Acute Assessment and Plan: See above (5) Type 2 diabetes mellitus: Code(s): E11.9 - Type 2 diabetes mellitus without complications Status: Acute Assessment and Plan: SSI and Lantus (6) Atrial fibrillation: Code(s): I48.91 - Unspecified atrial fibrillation Status: Acute Assessment and Plan: Continue p.o. 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 P
[2023-02-19 11:53] LABS: Glucose Point of Care 209 mg/dl (65-105)
[2023-02-19] MEDS: CEFEPIME 2 GM/NS 50 ML 2 GM/50 ML BAG IVPB (12:20)
--- NOTE | 2023-02-19 13:48 | PM.PNCARD ---
Progress Note: A&P Assessment and Plan (1) Acute on chronic diastolic (congestive) heart failure: Code(s): I50.33 - Acute on chronic diastolic (congestive) heart failure Status: Acute Assessment and Plan: Recent echocardiogram in 11/2022 shows LVEF 55-60%, mild , mild MR, mild TR, pulmonary hypertension. Worsening respiratory status on non-rebreather bilateral pulmonary edema. Partial response with Lasix infusion 5 milligram/hour a suboptimal 1800 cc out overnight including today. Discussed with Nephrology at length. Patient is hemodynamically stable so addition of inotrope therapy not felt to be beneficial. Heart rate controlled. Nephrology believes he is clearly moving towards hemodialysis although will attempt volume management without dialysis for long as possible. However, he remains on non-rebreather and renal function is declining. All urine bleeding so we discussed relative risks and benefits of increasing Lasix infusion. Will monitor closely increase Lasix infusion to 7.5 milligram/hour and monitor renal function as he is dyspneic with conversation on non-rebreather. Recommendation to follow. Furthermore, pt is hyperthyroid on Levothyroxine TSH<0.015 while not primary contributor certainly is helping management. Complicated management. Patient remains critically ill. (2) Atrial fibrillation: Qualifiers: Atrial fibrillation type: paroxysmal Qualified Code(s): I48.0 - Paroxysmal atrial fibrillation Code(s): I48.91 - Unspecified atrial fibrillation Status: Acute Assessment and Plan: Continue Amiodarone 200mg daily and metoprolol tartrate 25 mg twice daily. Continue Warfarin with goal INR of 2-3. Heart rate controlled at this time. Will continue monitor on telemetry. (3) Hyperthyroidism: Code(s): E05.90 - Thyrotoxicosis, unspecified without thyrotoxic crisis or storm Status: Acute Assessment and Plan: As above, reduce levothyroxine, management per Critical Care. (4) JOSE F (acute kidney injury): Code(s): N17.9 - Acute kidney failure, unspecified Status: Acute Assessment and Plan: Nephrology involved. Greatly appreciate recommendations involvement. Reason function continues to decline, urine output while improved remains suboptimal. Will cautiously increase diuretic therapy close. (5) Elevated troponin: Code(s): R77.8 - Other specified abnormalities of plasma proteins Status: Acute Assessment and Plan: No chest pain. EKG without ischemic changes. Likely not ACS. Likely due to decompensated heart failure in setting of acute on chronic renal failure. (6) Chronic anticoagulation: Code(s): Z79.01 - [facility] (current) use of anticoagulants Status: Acute Assessment and Plan: Continue Warfarin with goal INR of 2-3. Under 3.3 today although laslt dose of warfarin 02/18/23. Continue to monitor closely. Monitor for bleeding, follow H&H. Subjective Date/time seen: Date of service: 02/19/23 13:48 Interval history: Reason for visit: Decompensated diastolic heart failure. HPI: This is a 77-year-old male with a history of coronary artery disease, atrial fibrillation, chronic kidney disease, insulin-dependent diabetes, hypertension, hyperlipidemia, sleep apnea, hypothyroidism who presented for worsening shortness of breath and lower extremity edema over past couple of days. Was admitted in December for acute on chronic diastolic heart failure and JOSE F on CKD. Patient states he usually has some swelling in his ankles, but it has gone up to the knees know. No chest pain. Reports full compliance with his medications at home. Patient noted to be satting 91% on room air on arrival to the ED, placed on supplemental oxygen with improvement. Given IV Lasix. Initial troponin at 0.093. BNP is higher than his previous admission in December. EKG showing rate controlled atrial fibrillation without ischemic changes. 02/18: Overnight, mini
[2023-02-19 16:05] LABS: Glucose Point of Care 262 mg/dl (65-105)
[2023-02-19] MEDS: TOLNAFTATE 1% POWDER 45 GM BTL 1 APPLIC TOPICAL ×2 (16:59→20:15)
[2023-02-19] MEDS: FUROSEMIDE INJ 100 MG in SODIUM CHLORIDE 0.9% IV 90 ML 7.5 MG IV CONT (21:10)
[2023-02-19 21:21] LABS: Glucose Point of Care 155 mg/dl (65-105)
[2023-02-20] VITALS (21 sets, daily range): BP systolic 104–141; BP diastolic 55–109; PULSE 65–108; RESP 12–25; TEMP 36.1–37.3; O2SAT 91–99; BMI 37.4
[2023-02-20 04:32] LABS: Hematocrit 34.7 % (42.0-52.0); Hemoglobin 10.6 g/dL (14.0-18.0); Mean Corpuscular HGB Conc 30.5 g/dl (32-36); Mean Corpuscular Hemoglobin 30.4 pg (26-34); Mean Corpuscular Volume 99.4 fl (80-100); Mean Platelet Volume 9.9 fl (7.4-10.4); Platelet Count Result 259 k/mm3 (150-375); Red Blood Count 3.49 M/mm3 (4.6-6.20); Red Cell Distribution Width 15.9 % (11.5-14.5); White Blood Count 10.8 K/mm3 (4.5-10.0)
[2023-02-20 04:42] LABS: Alanine Aminotransferase 23 U/L (6-50); Albumin Level 3.6 g/dL (3.5-5.1); Alkaline Phosphatase 97 U/L (38-126); Anion Gap 9 mmol/L (8-16); Aspartate Amino Transferase 28 U/L (17-59); Bilirubin,Total 0.7 mg/dL (0.2-1.3); Blood Urea Nitrogen 86 mg/dL (9-20); Calcium 8.6 mg/dL (8.4-10.2); Carbon Dioxide 26 mmol/L (22-30); Chloride 105 mmol/L (98-107); Estimated CRCL calculation 22 ml/min; Estimated Glomerular Filt Rate 17; Glucose 158 mg/dL (65-110); Magnesium 2.4 mg/dL (1.6-2.3); Potassium 4.5 mmol/L (3.4-5.0); Sodium 140 mmol/L (137-145)
[2023-02-20 04:43] LABS: INR 2.9; Prothrombin Time 32.7 Seconds (11.1-14.7)
[2023-02-20] MEDS: LEVOTHYROXINE SODIUM 50 MCG TABLET PO (06:23)
[2023-02-20] MEDS: ACETAMINOPHEN 325 MG TABLET PO ×2 (07:52→16:28)
[2023-02-20] MEDS: AMIODARONE HCL 200 MG TABLET PO (07:53)
[2023-02-20] MEDS: METOPROLOL TARTRATE 25 MG TABLET PO ×2 (07:54→20:18)
[2023-02-20] MEDS: CLOPIDOGREL BISULFATE 75 MG TABLET PO (07:54)
[2023-02-20] MEDS: THERAPEUTIC MULTIVITAMINS/MINERALS TAB (*BKC) 1 TABLET PO (07:55)
[2023-02-20] MEDS: PANTOPRAZOLE 40 MG TABLET PO (07:56)
[2023-02-20] MEDS: INSULIN GLARGINE (*BKC) 100 UNITS/ML 20 UNITS SUB-Q (08:01)
[2023-02-20] MEDS: TOLNAFTATE 1% POWDER 45 GM BTL 1 APPLIC TOPICAL ×2 (08:03→20:18)
[2023-02-20 08:14] LABS: Glucose Point of Care 156 mg/dl (65-105)
--- NOTE | 2023-02-20 09:21 | WPDINTPN ---
Progress Note: A&P Assessment and Plan (1) Acute respiratory failure: Qualifiers: Respiratory failure complication: hypoxia and hypercapnia Qualified Code(s): J96.01 - Acute respiratory failure with hypoxia; J96.02 - Acute respiratory failure with hypercapnia; J96.02 - Acute respiratory failure with hypercapnia Code(s): J96.00 - Acute respiratory failure, unspecified whether with hypoxia or hypercapnia Status: Acute Assessment and Plan: Acute respiratory failure likely secondary to pulmonary edema secondary to congestive heart failure and chronic kidney disease leading to volume overload -Pneumonia unlikely possibility as patient is afebrile, normal WBC and low procalcitonin level -02/17: Blood cultures -preliminary results with no growth -continue cefepime (02/18) -patient was poorly responsive to IV Lasix so on 02/18 he was started on Lasix infusion with improvement in his urine output -Currently on 8-10 L high-flow nasal cannula. Continue BiPAP as tolerated p.r.n. and at night -chest x-ray this morning: Moderate pulmonary edema pattern with small right pleural effusion. Correlate clinically for infection. -Patient may need intubation and mechanical ventilation hypoxia worsens or patient was respiratory distress and does not tolerate NIPPV (2) CHF (congestive heart failure): Qualifiers: Heart failure chronicity: unspecified Heart failure type: unspecified Qualified Code(s): I50.9 - Heart failure, unspecified Code(s): I50.9 - Heart failure, unspecified Status: Acute Assessment and Plan: Echo Summary ? 1. Complete two-dimensional, color flow and Doppler transthoracic echocardiogram is performed. ? 2. Left ventricular chamber dimension is normal. ? 3. Left ventricular systolic function is normal, estimated at 55-60%. ? 4. There is mildly increased left ventricular wall thickness. ? 5. Global longitudinal strain is abnormal at -12 %. ? 6. Right ventricular systolic function is normal. ? 7. Left atrial chamber dimension is moderately enlarged. ? 8. Right atrial chamber dimension is mildly enlarged. ? 9. There is moderate aortic valve calcification. ? 10. There is mild aortic valve stenosis with a peak velocity of 245 cm/s, mean gradient of 12 mmHg, and aortic valve area of 1.9 cm2. ? 11. The mitral valve annulus is mildly calcified. ? 12. There is mild mitral valve regurgitation. ? 13. There is mild tricuspid valve regurgitation. ? 14. Pulmonary hypertension with estimated PASP of 52mmHg. Cardiology following Lasix infusion for volume overload Discussed with Nephrology and Cardiology, will start midodrine for adequate blood pressure support and increase renal perfusion (3) Chronic kidney disease: Code(s): N18.9 - Chronic kidney disease, unspecified Status: Acute Assessment and Plan: Patient has chronic kidney disease and baseline creatinine is close to 2 Electrolytes have been acceptable tele but patient has volume overload Patient has been poorly responsive to IV bolus Lasix Currently creatinine is 3.5 Continue IV Lasix infusion Appreciate nephrology following the patient Acceptable electrolytes and acid-base status at this time (4) Pneumonia: Qualifiers: Laterality: unspecified laterality Lung location: unspecified part of lung Pneumonia type: due to unspecified organism Qualified Code(s): J18.9 - Pneumonia, unspecified organism Code(s): J18.9 - Pneumonia, unspecified organism Status: Acute Assessment and Plan: See above (5) Type 2 diabetes mellitus: Code(s): E11.9 - Type 2 diabetes mellitus without complications Status: Acute Assessment and Plan: SSI and Lantus (6) Atrial fibrillation: Qualifiers: Atrial fibrillation type: paroxysmal Qualified Code(s): I48.0 - Paroxysmal atrial fibrillation Code(s): I48.91 - Unspecified atrial fibrillation Status: Acute Assessm
--- NOTE | 2023-02-20 10:15 | PM.PNNEP ---
Progress Note: A&P Assessment and Plan (1) JOSE F (acute kidney injury): Code(s): N17.9 - Acute kidney failure, unspecified Status: Acute Assessment and Plan: acute versus progression of disease (see #2) acute CHF and necessity of high dose diuretics likely playing a role as well perhaps a component of renal hypoperfusion/soft BPs contributing but better hemodynamics noted at this time consider trial of midodrine - discussed with Dr. George renal ultrasound (done a month ago) with any acute issue/problems remains at risk for needing/requiring ATG ARCHITECT/dialysis particularly if conservative therapy fails to improve his volume status continue diuretic gtt and titrate as needed follow repeat labs and UOP (2) Chronic kidney disease, stage 3b: Code(s): N18.32 - Chronic kidney disease, stage 3b Status: Chronic Assessment and Plan: baseline creatinine runs ~ 2.0mg/dl due to HTN, DM, CHF, vascular disease, EILEEN/pulmonary hypertension, and age-related change however, from his last hospitalization a month ago her, his creatinine was running higher due to diuresis and need for high dose diuretics this may have led to some CKD progression to CKD stage 4 versus the fact that he needs a higher creatinine to achieve relative euvolemia follows with Dr. Rodriguez for management of his CKD (3) Acute respiratory failure: Code(s): J96.00 - Acute respiratory failure, unspecified whether with hypoxia or hypercapnia Status: Acute Assessment and Plan: secondary to pulmonary edema from CHF and advancing CKD possible pneumonia playing a role but seems less likely follow culture data - on empiric antibiotics NRB for respiratory support continue attempts at diuresis (4) CHF (congestive heart failure): Code(s): I50.9 - Heart failure, unspecified Status: Acute Assessment and Plan: acute on chronic (diastolic) on lasix gtt with marginal improvement in UOP recent Echo noted Cardiology following (5) Atrial fibrillation: Qualifiers: Atrial fibrillation type: paroxysmal Qualified Code(s): I48.0 - Paroxysmal atrial fibrillation Code(s): I48.91 - Unspecified atrial fibrillation Status: Acute Assessment and Plan: continue rate control strategy anticoagulation on hold (6) Type 2 diabetes mellitus: Code(s): E11.9 - Type 2 diabetes mellitus without complications Status: Acute Assessment and Plan: follow accuchecks on SSI and Lantus per intensivisit/hospitalists Will continue to follow. Subjective Date/time seen: 02/20/23 10:15 Interval history: Follow-up for acute kidney injury on chronic kidney disease and volume/fluid overload. Better urine output with increase in lasix gtt with relative stability in creatinine/renal function; respiratory status seems a bit better; otherwise with relatively stable hemodynamics; no other acute complaints voiced at the time of my visit; no apparent distress noted. Exam Narrative: General: elderly male in NAD Heart:IRRR, normal S1 and S2; no rub Lungs: bibasilar crackles/rales Abdomen: soft, nontender, nondistended, positive bowel sounds Extremities: no cyanosis or clubbing; 2 - 3+ edema Skin: warm and dry Objective Data Vital Signs Vital Signs: Vital Signs Temp Pulse Resp BP Pulse Ox O2 Del Method O2 Flow Rate 02/20/23 08:00 108 H 19 91 High Flow Nasal Cannula 8 02/20/23 10:00 90 19 114/80 91 02/20/23 10:00 90 02/20/23 08:00 97.8 F 108 H 19 139/80 91 02/20/23 08:00 108 H 02/20/23 07:54 101 H 02/20/23 07:53 96 02/20/23 06:00 85 15 141/66 H 97 02/20/23 06:00 85 02/20/23 04:00 97 24 H 104/92 H 91 02/20/23 04:00 97 02/20/23 04:00 92 High Flow Nasal Cannula 8 02/20/23 03:10 97 High Flow Nasal Cannula 8 02/20/23 02:00 78 16 133/109
--- NOTE | 2023-02-20 10:15 | P.PNNP_ITS ---
Progress Note: A&P Assessment and Plan (1) JOSE F (acute kidney injury): Code(s): N17.9 - Acute kidney failure, unspecified Status: Acute Assessment and Plan: * acute versus progression of disease (see #2) * acute CHF and necessity of high dose diuretics likely playing a role as well * perhaps a component of renal hypoperfusion/soft BPs contributing but better hemodynamics noted at this time * consider trial of midodrine - discussed with Dr. George * renal ultrasound (done a month ago) with any acute issue/problems * remains at risk for needing/requiring CASE PICKER/dialysis particularly if conservative therapy fails to improve his volume status * continue diuretic gtt and titrate as needed * follow repeat labs and UOP (2) Chronic kidney disease, stage 3b: Code(s): N18.32 - Chronic kidney disease, stage 3b Status: Chronic Assessment and Plan: * baseline creatinine runs ~ 2.0mg/dl * due to HTN, DM, CHF, vascular disease, EILEEN/pulmonary hypertension, and age-related change * however, from his last hospitalization a month ago her, his creatinine was running higher due to diuresis and need for high dose diuretics * this may have led to some CKD progression to CKD stage 4 versus the fact that he needs a higher creatinine to achieve relative euvolemia * follows with Dr. Rodriguez for management of his CKD (3) Acute respiratory failure: Code(s): J96.00 - Acute respiratory failure, unspecified whether with hypoxia or hypercapnia Status: Acute Assessment and Plan: * secondary to pulmonary edema from CHF and advancing CKD * possible pneumonia playing a role but seems less likely * follow culture data - on empiric antibiotics * NRB for respiratory support * continue attempts at diuresis (4) CHF (congestive heart failure): Code(s): I50.9 - Heart failure, unspecified Status: Acute Assessment and Plan: * acute on chronic (diastolic) * on lasix gtt with marginal improvement in UOP * recent Echo noted * Cardiology following (5) Atrial fibrillation: Qualifiers: Atrial fibrillation type: paroxysmal Qualified Code(s): I48.0 - Paroxysmal atrial fibrillation Code(s): I48.91 - Unspecified atrial fibrillation Status: Acute Assessment and Plan: * continue rate control strategy * anticoagulation on hold (6) Type 2 diabetes mellitus: Code(s): E11.9 - Type 2 diabetes mellitus without complications Status: Acute Assessment and Plan: * follow accuchecks * on SSI and Lantus per intensivisit/hospitalists Will continue to follow. Subjective Date/time seen: 02/20/23 10:15 Interval history: Follow-up for acute kidney injury on chronic kidney disease and volume/fluid overload. Better urine output with increase in lasix gtt with relative stability in creatinine/renal function; respiratory status seems a bit better; otherwise with relatively stable hemodynamics; no other acute complaints voiced at the time of my visit; no apparent distress noted. Exam Narrative: General: elderly male in NAD Heart:IRRR, normal S1 and S2; no rub Lungs: bibasilar crackles/rales Abdomen: soft, nontender, nondistended, positive bowel sounds Extremities: no cyanosis or clubbing; 2 - 3+ edema Skin: warm and dry Objective Data Vital Signs Vital Signs: Vital Signs Temp Pulse Resp BP Pul
--- NOTE | 2023-02-20 10:26 | PM.PNCARD ---
Progress Note: A&P Assessment and Plan (1) Acute on chronic diastolic (congestive) heart failure: Code(s): I50.33 - Acute on chronic diastolic (congestive) heart failure Status: Acute Assessment and Plan: Recent echocardiogram in 11/2022 shows LVEF 55-60%, mild , mild MR, mild TR, pulmonary hypertension. Worsening respiratory status on non-rebreather with bilateral pulmonary edema. Partial response with Lasix infusion 5 milligram/hour. Patient is hemodynamically stable so addition of inotrope therapy not felt to be beneficial. Heart rate controlled. Nephrology following along - does not need dialysis at this time, may get more renal perfusion with higher blood pressures so Nephrology recommending midodrine. Lasix infusion was incrased to 7.5mg/hour with improvement in urine output to 1900ccs on 02/19 with net negative of 500ccs. Discussed with Dr. George at bedside this morning. Can increase Lasix drip to 10mg/hour to see if we can facilitate more diuresis to get at least net negative 1-2 liters/daily. Furthermore, pt is hyperthyroid on Levothyroxine TSH<0.015 while not primary contributor certainly is helping management. Complicated management. Patient remains critically ill. (2) Atrial fibrillation: Qualifiers: Atrial fibrillation type: paroxysmal Qualified Code(s): I48.0 - Paroxysmal atrial fibrillation Code(s): I48.91 - Unspecified atrial fibrillation Status: Acute Assessment and Plan: Continue Amiodarone 200mg daily and metoprolol tartrate 25 mg twice daily. Heart rate controlled at this time. Will continue monitor on telemetry. INR remains therapeutic despite last dose of Warfarin 02/18. (3) Hyperthyroidism: Code(s): E05.90 - Thyrotoxicosis, unspecified without thyrotoxic crisis or storm Status: Acute Assessment and Plan: As above, reduce levothyroxine, management per Critical Care. (4) JOSE F (acute kidney injury): Code(s): N17.9 - Acute kidney failure, unspecified Status: Acute Assessment and Plan: Nephrology involved. Greatly appreciate recommendations involvement. Urine output while improved remains suboptimal. Will cautiously increase diuretic therapy dose. (5) Elevated troponin: Code(s): R77.8 - Other specified abnormalities of plasma proteins Status: Acute Assessment and Plan: No chest pain. EKG without ischemic changes. Likely not ACS. Likely due to decompensated heart failure in setting of acute on chronic renal failure. 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 Subjective Date/time seen: 02/20/23 10:26 Interval history: Reason for visit: Decompensated diastolic heart failure. HPI: This is a 77-year-old male with a history of coronary artery disease, atrial fibrillation, chronic kidney disease, insulin-dependent diabetes, hypertension, hyperlipidemia, sleep apnea, hypothyroidism who presented for worsening shortness of breath and lower extremity edema over past couple of days. Was admitted in December for acute on chronic diastolic heart failure and JOSE F on CKD. Patient states he usually has some swelling in his ankles, but it has gone up to the knees know. No chest pain. Reports full compliance with his medications at home. Patient noted to be satting 91% on room air on arrival to the ED, placed on supplemental oxygen with improvement. Given IV Lasix. Initial troponin at 0.093. BNP is higher than his previous admission in December. EKG showing rate controlled atrial fibrillation without ischemic changes. Date of service 02/18: Overnight, patient with worsening respiratory distress. Needed BIPAP but was not tolerating it. Minimal urine output with the Lasix, and was changed to Bumex. Overnight team had discussions with the patient and family, and since he was no
[2023-02-20] MEDS: MIDODRINE HCL 10 MG TABLET PO ×3 (10:28→16:29)
[2023-02-20 12:12] LABS: Glucose Point of Care 232 mg/dl (65-105)
[2023-02-20] MEDS: FUROSEMIDE INJ 100 MG in SODIUM CHLORIDE 0.9% IV 90 ML 7.5 MG IV CONT (12:13)
[2023-02-20] MEDS: INSULIN ASPART (*BKC) 100 UNITS/ML SUB-Q (12:13)
[2023-02-20] MEDS: CEFEPIME 2 GM/NS 50 ML 2 GM/50 ML BAG IVPB (12:22)
[2023-02-20 16:39] LABS: Glucose Point of Care 177 mg/dl (65-105)
[2023-02-20 22:12] LABS: Glucose Point of Care 235 mg/dl (65-105)
[2023-02-21] VITALS (23 sets, daily range): BP systolic 119–152; BP diastolic 58–82; PULSE 66–95; RESP 15–24; TEMP 36.3–37.1; O2SAT 93–100
[2023-02-21] MEDS: FUROSEMIDE INJ 100 MG in SODIUM CHLORIDE 0.9% IV 90 ML 7.5 MG IV CONT ×2 (02:08→15:16)
[2023-02-21 04:42] LABS: Hematocrit 32.5 % (42.0-52.0); Hemoglobin 9.9 g/dL (14.0-18.0); Mean Corpuscular HGB Conc 30.5 g/dl (32-36); Mean Corpuscular Hemoglobin 29.8 pg (26-34); Mean Corpuscular Volume 97.9 fl (80-100); Platelet Count Result 275 k/mm3 (150-375); Red Blood Count 3.32 M/mm3 (4.6-6.20); Red Cell Distribution Width 15.4 % (11.5-14.5); White Blood Count 10.1 K/mm3 (4.5-10.0)
[2023-02-21 04:52] LABS: INR 2.5; Prothrombin Time 28.7 Seconds (11.1-14.7)
[2023-02-21 05:00] LABS: Alanine Aminotransferase 27 U/L (6-50); Albumin Level 3.6 g/dL (3.5-5.1); Alkaline Phosphatase 83 U/L (38-126); Anion Gap 8 mmol/L (8-16); Aspartate Amino Transferase 30 U/L (17-59); Bilirubin,Total 0.7 mg/dL (0.2-1.3); Blood Urea Nitrogen 105 mg/dL (9-20); Calcium 8.4 mg/dL (8.4-10.2); Carbon Dioxide 27 mmol/L (22-30); Chloride 103 mmol/L (98-107); Estimated CRCL calculation 27 ml/min; Estimated Glomerular Filt Rate 21; Glucose 177 mg/dL (65-110); Magnesium 2.4 mg/dL (1.6-2.3); Potassium 4.4 mmol/L (3.4-5.0); Sodium 138 mmol/L (137-145)
[2023-02-21] MEDS: LEVOTHYROXINE SODIUM 50 MCG TABLET PO (06:37)
[2023-02-21 07:54] LABS: Glucose Point of Care 169 mg/dl (65-105)
[2023-02-21] MEDS: PANTOPRAZOLE 40 MG TABLET PO (08:50)
[2023-02-21] MEDS: AMIODARONE HCL 200 MG TABLET PO (08:50)
[2023-02-21] MEDS: INSULIN GLARGINE (*BKC) 100 UNITS/ML 20 UNITS SUB-Q (08:52)
[2023-02-21] MEDS: THERAPEUTIC MULTIVITAMINS/MINERALS TAB (*BKC) 1 TABLET PO (09:42)
[2023-02-21] MEDS: METOPROLOL TARTRATE 25 MG TABLET PO ×2 (09:42→20:31)
[2023-02-21] MEDS: MIDODRINE HCL 10 MG TABLET PO ×3 (09:42→16:32)
[2023-02-21] MEDS: CLOPIDOGREL BISULFATE 75 MG TABLET PO (09:42)
[2023-02-21] MEDS: TOLNAFTATE 1% POWDER 45 GM BTL 1 APPLIC TOPICAL ×2 (09:43→20:30)
--- NOTE | 2023-02-21 11:33 | WPDINTPN ---
Progress Note: A&P Assessment and Plan (1) Acute respiratory failure: Qualifiers: Respiratory failure complication: hypoxia and hypercapnia Qualified Code(s): J96.01 - Acute respiratory failure with hypoxia; J96.02 - Acute respiratory failure with hypercapnia; J96.02 - Acute respiratory failure with hypercapnia Code(s): J96.00 - Acute respiratory failure, unspecified whether with hypoxia or hypercapnia Status: Acute Assessment and Plan: Acute respiratory failure likely secondary to pulmonary edema secondary to congestive heart failure and chronic kidney disease leading to volume overload -Pneumonia unlikely possibility as patient is afebrile, normal WBC and low procalcitonin level -02/17: Blood cultures -preliminary results with no growth -continue cefepime total of 5 days (started on 02/18) -patient was poorly responsive to IV Lasix so on 02/18 he was started on Lasix infusion with improvement in his urine output and negative fluid balance -Currently on 6 L nasal cannula with adequate O2 sats. Continue BiPAP as tolerated p.r.n. and at night -chest x-ray this morning: Moderate pulmonary edema pattern and possible small right pleural effusion, similar to prior exam. (2) CHF (congestive heart failure): Qualifiers: Heart failure chronicity: unspecified Heart failure type: unspecified Qualified Code(s): I50.9 - Heart failure, unspecified Code(s): I50.9 - Heart failure, unspecified Status: Acute Assessment and Plan: Echo Summary ? 1. Complete two-dimensional, color flow and Doppler transthoracic echocardiogram is performed. ? 2. Left ventricular chamber dimension is normal. ? 3. Left ventricular systolic function is normal, estimated at 55-60%. ? 4. There is mildly increased left ventricular wall thickness. ? 5. Global longitudinal strain is abnormal at -12 %. ? 6. Right ventricular systolic function is normal. ? 7. Left atrial chamber dimension is moderately enlarged. ? 8. Right atrial chamber dimension is mildly enlarged. ? 9. There is moderate aortic valve calcification. ? 10. There is mild aortic valve stenosis with a peak velocity of 245 cm/s, mean gradient of 12 mmHg, and aortic valve area of 1.9 cm2. ? 11. The mitral valve annulus is mildly calcified. ? 12. There is mild mitral valve regurgitation. ? 13. There is mild tricuspid valve regurgitation. ? 14. Pulmonary hypertension with estimated PASP of 52mmHg. Cardiology following Lasix infusion for volume overload 02/20: Discussed with Nephrology and Cardiology, will start midodrine for adequate blood pressure support and increase renal perfusion (3) Chronic kidney disease: Code(s): N18.9 - Chronic kidney disease, unspecified Status: Acute Assessment and Plan: Patient has chronic kidney disease and baseline creatinine is close to 2.0 Electrolytes have been acceptable tele but patient has volume overload Patient has been poorly responsive to IV bolus Lasix so was started on Lasix infusion on 02/18/2023 with good urine output, negative fluid balance, improvement in creatinine Appreciate nephrology following the patient Acceptable electrolytes and acid-base status at this time (4) Pneumonia: Qualifiers: Laterality: unspecified laterality Lung location: unspecified part of lung Pneumonia type: due to unspecified organism Qualified Code(s): J18.9 - Pneumonia, unspecified organism Code(s): J18.9 - Pneumonia, unspecified organism Status: Acute Assessment and Plan: See above (5) Type 2 diabetes mellitus: Code(s): E11.9 - Type 2 diabetes mellitus without complications Status: Acute Assessment and Plan: SSI and Lantus (6) Atrial fibrillation: Qualifiers: Atrial fibrillation type: paroxysmal Qualified Code(s): I48.0 - Paroxysmal atrial fibrillation Code(s): I48.91 - Unspecified atrial fibrillation Status: Acute Assessment
[2023-02-21] MEDS: INSULIN ASPART (*BKC) 100 UNITS/ML SUB-Q ×2 (11:56→16:32)
[2023-02-21 11:59] LABS: Glucose Point of Care 280 mg/dl (65-105)
[2023-02-21] MEDS: CEFEPIME 2 GM/NS 50 ML 2 GM/50 ML BAG IVPB (11:59)
--- NOTE | 2023-02-21 12:19 | P.PNNP_ITS ---
Progress Note: A&P Assessment and Plan (1) JOSE F (acute kidney injury): Code(s): N17.9 - Acute kidney failure, unspecified Status: Acute Assessment and Plan: * acute versus progression of disease (see #2) * creatinine a bit better but BUN higher * acute CHF and necessity of high dose diuretics likely playing a role as well * perhaps a component of renal hypoperfusion/soft BPs contributing but better hemodynamics noted at this time * on midodrine at this time * renal ultrasound (done a month ago) with any acute issue/problems * still remains at risk for needing/requiring [facility]/dialysis but it seems to be doing better with conservative therapy * continue diuretic gtt and titrate as needed * follow repeat labs and UOP (2) Chronic kidney disease, stage 3b: Code(s): N18.32 - Chronic kidney disease, stage 3b Status: Chronic Assessment and Plan: * baseline creatinine runs ~ 2.0mg/dl * due to HTN, DM, CHF, vascular disease, EILEEN/pulmonary hypertension, and age-related change * however, from his last hospitalization a month ago her, his creatinine was running higher due to diuresis and need for high dose diuretics * this may have led to some CKD progression to CKD stage 4 versus the fact that he needs a higher creatinine to achieve relative euvolemia * follows with Dr. Rodriguez for management of his CKD (3) Acute respiratory failure: Qualifiers: Respiratory failure complication: hypoxia and hypercapnia Qualified Code(s): J96.01 - Acute respiratory failure with hypoxia; J96.02 - Acute respiratory failure with hypercapnia; J96.02 - Acute respiratory failure with hypercapnia Code(s): J96.00 - Acute respiratory failure, unspecified whether with hypoxia or hypercapnia Status: Acute Assessment and Plan: * secondary to pulmonary edema from CHF and advancing CKD * questionable pneumonia * follow culture data - on antibiotics and to complete course tomorrow * NRB/BiPAP for respiratory support; on supplemental oxygen * continue diuresis (4) CHF (congestive heart failure): Code(s): I50.9 - Heart failure, unspecified Status: Acute Assessment and Plan: * acute on chronic (diastolic) * on lasix gtt with good diuresis in the last 24 hours * recent Echo noted * Cardiology following (5) Atrial fibrillation: Qualifiers: Atrial fibrillation type: paroxysmal Qualified Code(s): I48.0 - Paroxysmal atrial fibrillation Code(s): I48.91 - Unspecified atrial fibrillation Status: Acute Assessment and Plan: * continue rate control strategy * anticoagulation on hold (6) Type 2 diabetes mellitus: Code(s): E11.9 - Type 2 diabetes mellitus without complications Status: Acute Assessment and Plan: * follow accuchecks * on SSI and Lantus per intensivisit/hospitalists Will continue to follow. Subjective Date/time seen: 02/21/23 12:19 Interval history: Follow-up for acute kidney injury on chronic kidney disease and volume/fluid overload. Better urine output with increase in lasix gtt with relative stability if not improvement in creatinine/renal function; respiratory status seems a bit better as he has been weaned down to nasal cannula but continues to report ongoing shortness of breath; stable if not improved hemodynamics with use of midodrine; no other acute issues/events overnight or earlier this morning. Exam Narrative: General: elderly male in NAD Heart:IRRR, normal S1 and S2; no
--- NOTE | 2023-02-21 12:19 | PM.PNNEP ---
Progress Note: A&P Assessment and Plan (1) JOSE F (acute kidney injury): Code(s): N17.9 - Acute kidney failure, unspecified Status: Acute Assessment and Plan: acute versus progression of disease (see #2) creatinine a bit better but BUN higher acute CHF and necessity of high dose diuretics likely playing a role as well perhaps a component of renal hypoperfusion/soft BPs contributing but better hemodynamics noted at this time on midodrine at this time renal ultrasound (done a month ago) with any acute issue/problems still remains at risk for needing/requiring [employer] MACH[employer] T[employer]ER/dialysis but it seems to be doing better with conservative therapy continue diuretic gtt and titrate as needed follow repeat labs and UOP (2) Chronic kidney disease, stage 3b: Code(s): N18.32 - Chronic kidney disease, stage 3b Status: Chronic Assessment and Plan: baseline creatinine runs ~ 2.0mg/dl due to HTN, DM, CHF, vascular disease, EILEEN/pulmonary hypertension, and age-related change however, from his last hospitalization a month ago her, his creatinine was running higher due to diuresis and need for high dose diuretics this may have led to some CKD progression to CKD stage 4 versus the fact that he needs a higher creatinine to achieve relative euvolemia follows with Dr. Rodriguez for management of his CKD (3) Acute respiratory failure: Qualifiers: Respiratory failure complication: hypoxia and hypercapnia Qualified Code(s): J96.01 - Acute respiratory failure with hypoxia; J96.02 - Acute respiratory failure with hypercapnia; J96.02 - Acute respiratory failure with hypercapnia Code(s): J96.00 - Acute respiratory failure, unspecified whether with hypoxia or hypercapnia Status: Acute Assessment and Plan: secondary to pulmonary edema from CHF and advancing CKD questionable pneumonia follow culture data - on antibiotics and to complete course tomorrow NRB/BiPAP for respiratory support; on supplemental oxygen continue diuresis (4) CHF (congestive heart failure): Code(s): I50.9 - Heart failure, unspecified Status: Acute Assessment and Plan: acute on chronic (diastolic) on lasix gtt with good diuresis in the last 24 hours recent Echo noted Cardiology following (5) Atrial fibrillation: Qualifiers: Atrial fibrillation type: paroxysmal Qualified Code(s): I48.0 - Paroxysmal atrial fibrillation Code(s): I48.91 - Unspecified atrial fibrillation Status: Acute Assessment and Plan: continue rate control strategy anticoagulation on hold (6) Type 2 diabetes mellitus: Code(s): E11.9 - Type 2 diabetes mellitus without complications Status: Acute Assessment and Plan: follow accuchecks on SSI and Lantus per intensivisit/hospitalists Will continue to follow. Subjective Date/time seen: 02/21/23 12:19 Interval history: Follow-up for acute kidney injury on chronic kidney disease and volume/fluid overload. Better urine output with increase in lasix gtt with relative stability if not improvement in creatinine/renal function; respiratory status seems a bit better as he has been weaned down to nasal cannula but continues to report ongoing shortness of breath; stable if not improved hemodynamics with use of midodrine; no other acute issues/events overnight or earlier this morning. Exam Narrative: General: elderly male in NAD Heart:IRRR, normal S1 and S2; no rub Lungs: bibasilar crackles/rales Abdomen: soft, nontender, nondistended, positive bowel sounds Extremities: no cyanosis or clubbing; 2+ edema Skin: warm and intact Objective Data Vital Signs Vital Signs: Vital Signs Temp Pulse Resp BP Pulse Ox O2 Del Method O2 Flow Rate 02/21/23 12:00 84 131/78 02/21/23 12:00 98.7 F 90 19 120/65 97 02/21/23 12:00 90 02/21/23 12:00 95 High Flow Nasal Cannula 4 0
--- NOTE | 2023-02-21 14:12 | PM.PNCARD ---
Progress Note: A&P Assessment and Plan (1) Acute on chronic diastolic (congestive) heart failure: Code(s): I50.33 - Acute on chronic diastolic (congestive) heart failure Status: Acute Assessment and Plan: Recent echocardiogram in 11/2022 shows LVEF 55-60%, mild , mild MR, mild TR, pulmonary hypertension. -he remains on significant O2 supplementation. Wean as tolerated. -continue Lasix infusion at 7.5mg/hour given his significant increase in urine output as long as he is responding and renal function and BP permit. Continue to monitor renal function electrolytes closely. -midodrine 10 mg 3 times daily added to bolster his blood pressure and potentially improve perfusion and response to diuretic therapy. He otherwise has been stable lowest blood pressure 105/56 typically running in the 120s to 130s systolic blood pressure. Complicated management. Patient remains critically ill. (2) Atrial fibrillation: Qualifiers: Atrial fibrillation type: paroxysmal Qualified Code(s): I48.0 - Paroxysmal atrial fibrillation Code(s): I48.91 - Unspecified atrial fibrillation Status: Acute Assessment and Plan: Heart rate adequately controlled at this time. Continue Amiodarone 200mg daily and metoprolol tartrate 25 mg twice daily. Heart rate controlled at this time. Previously on warfarin to reduce embolic stroke risk. INR stable at 2.5. (3) Hyperthyroidism: Code(s): E05.90 - Thyrotoxicosis, unspecified without thyrotoxic crisis or storm Status: Acute Assessment and Plan: As above, reduce levothyroxine, management per Critical Care. TSH less than 0.015 (4) JOSE F (acute kidney injury): Code(s): N17.9 - Acute kidney failure, unspecified Status: Acute Assessment and Plan: Nephrology involved. Greatly appreciate recommendations involvement. Urine output improving significantly with Lasix infusion. Creatinine 2.9 BUN increased to 105. Continue to monitor closely. Significant likelihood he will require dialysis at some point in the future. (5) Elevated troponin: Code(s): R77.8 - Other specified abnormalities of plasma proteins Status: Acute Assessment and Plan: No anginal symptoms. EKG without ischemic changes. Likely not ACS. Likely due to decompensated heart failure in setting of acute on chronic renal failure. (6) Chronic anticoagulation: Code(s): Z79.01 - custodial (current) use of anticoagulants Status: Acute Assessment and Plan: Previously on warfarin for stroke risk reduction in AFib. INR 2.5 as above. Subjective Date/time seen: Date of service: 02/21/23 14:12 Interval history: Reason for visit: Decompensated diastolic heart failure. HPI: This is a 77-year-old male with a history of coronary artery disease, atrial fibrillation, chronic kidney disease, insulin-dependent diabetes, hypertension, hyperlipidemia, sleep apnea, hypothyroidism who presented for worsening shortness of breath and lower extremity edema over past couple of days. Was admitted in December for acute on chronic diastolic heart failure and JOSE F on CKD. Patient states he usually has some swelling in his ankles, but it has gone up to the knees know. No chest pain. Reports full compliance with his medications at home. Patient noted to be satting 91% on room air on arrival to the ED, placed on supplemental oxygen with improvement. Given IV Lasix. Initial troponin at 0.093. BNP is higher than his previous admission in December. EKG showing rate controlled atrial fibrillation without ischemic changes. Date of service 02/18: Overnight, patient with worsening respiratory distress. Needed BIPAP but was not tolerating it. Minimal urine output with the Lasix, and was changed to Bumex. Overnight team had discussions with the patient and family, and since he was not tolerating BIPAP, patient had initially just wanted to be comfort care, so comfort care measures were initia
[2023-02-21] MEDS: ONDANSETRON HCL ODT 4 MG TABLET 8 MG PO (15:15)
[2023-02-21] MEDS: ACETAMINOPHEN 325 MG TABLET PO (16:33)
[2023-02-21 16:53] LABS: Glucose Point of Care 260 mg/dl (65-105)
--- NOTE | 2023-02-21 19:37 | PC.NURSE ---
This patient, Nigel Wang, was transferred to [201 ] on 02/21/23 at 1937. Personal belongings sent with patient. Report given to [JACQUIE Greene ]. Appropriate documentation sent with patient.
[2023-02-21] MEDS: BENZOCAINE/MENTHOL (*BKC) 18 EA LOZENGE 1 LOZENGE PO (20:33)
[2023-02-22] VITALS (21 sets, daily range): BP systolic 120–147; BP diastolic 56–89; PULSE 56–105; RESP 18–24; TEMP 36.1–36.6; O2SAT 92–98
[2023-02-22] MEDS: diphenhydrAMINE HCl CAP 25 MG CAPSULE 50 MG PO (00:34)
[2023-02-22] MEDS: LEVOTHYROXINE SODIUM 50 MCG TABLET PO (05:12)
[2023-02-22] MEDS: FUROSEMIDE INJ 100 MG in SODIUM CHLORIDE 0.9% IV 90 ML 7.5 MG IV CONT ×2 (05:12→20:12)
[2023-02-22 05:17] LABS: Hematocrit 34.1 % (42.0-52.0); Hemoglobin 10.5 g/dL (14.0-18.0); Mean Corpuscular HGB Conc 30.8 g/dl (32-36); Mean Corpuscular Hemoglobin 29.7 pg (26-34); Mean Corpuscular Volume 96.3 fl (80-100); Mean Platelet Volume 10.9 fl (7.4-10.4); Platelet Count Result 321 k/mm3 (150-375); Red Blood Count 3.54 M/mm3 (4.6-6.20); Red Cell Distribution Width 15.2 % (11.5-14.5)
[2023-02-22 05:43] LABS: Alanine Aminotransferase 26 U/L (6-50); Albumin Level 3.7 g/dL (3.5-5.1); Alkaline Phosphatase 107 U/L (38-126); Anion Gap 9 mmol/L (8-16); Aspartate Amino Transferase 27 U/L (17-59); Bilirubin,Total 0.7 mg/dL (0.2-1.3); Blood Urea Nitrogen 101 mg/dL (9-20); Carbon Dioxide 31 mmol/L (22-30); Chloride 100 mmol/L (98-107); Estimated CRCL calculation 24 ml/min; Estimated Glomerular Filt Rate 20; Glucose 150 mg/dL (65-110); Magnesium 2.3 mg/dL (1.6-2.3); Potassium 3.7 mmol/L (3.4-5.0); Sodium 140 mmol/L (137-145)
[2023-02-22 08:14] LABS: Glucose Point of Care 153 mg/dl (65-105)
[2023-02-22] MEDS: AMIODARONE HCL 200 MG TABLET PO (08:53)
[2023-02-22] MEDS: CLOPIDOGREL BISULFATE 75 MG TABLET PO (08:53)
[2023-02-22] MEDS: METOPROLOL TARTRATE 25 MG TABLET PO ×2 (08:54→20:12)
[2023-02-22] MEDS: MIDODRINE HCL 10 MG TABLET PO (08:54)
[2023-02-22] MEDS: PANTOPRAZOLE 40 MG TABLET PO (08:55)
[2023-02-22] MEDS: TOLNAFTATE 1% POWDER 45 GM BTL 1 APPLIC TOPICAL ×2 (08:56→20:13)
[2023-02-22] MEDS: THERAPEUTIC MULTIVITAMINS/MINERALS TAB (*BKC) 1 TABLET PO (08:56)
[2023-02-22] MEDS: INSULIN GLARGINE (*BKC) 100 UNITS/ML 20 UNITS SUB-Q (08:56)
--- NOTE | 2023-02-22 11:49 | PM.PNCARD ---
Progress Note: A&P Assessment and Plan (1) Acute on chronic diastolic (congestive) heart failure: Code(s): I50.33 - Acute on chronic diastolic (congestive) heart failure Status: Acute Assessment and Plan: Recent echocardiogram in 11/2022 shows LVEF 55-60%, mild , mild MR, mild TR, pulmonary hypertension. -he remains on significant O2 supplementation. Wean as tolerated. -recommend continuation of Lasix infusion at 7.5mg/hour given his significant increase in urine output as long as he is responding and renal function and BP permit. Continue to monitor renal function electrolytes closely. He is now 4.3 L negative. Creatinine increased to 3.1, BUN remains significantly elevated at 101. -midodrine 10 mg 3 times daily added to bolster his blood pressure and potentially improve perfusion and response to diuretic therapy. Continue for now. BP stable. Patient remains complicated. (2) Atrial fibrillation: Qualifiers: Atrial fibrillation type: paroxysmal Qualified Code(s): I48.0 - Paroxysmal atrial fibrillation Code(s): I48.91 - Unspecified atrial fibrillation Status: Acute Assessment and Plan: Continue Amiodarone 200mg daily and metoprolol tartrate 25 mg twice daily. Heart rate controlled at this time. Previously on warfarin to reduce embolic stroke risk. INR stable at 2.0. Resume warfarin 3 mg daily this evening. Daily INR. (3) Hyperthyroidism: Code(s): E05.90 - Thyrotoxicosis, unspecified without thyrotoxic crisis or storm Status: Acute Assessment and Plan: Levothyroxine reduced to 50 mcg daily, management per primary service TSH less than 0.015 (4) JOSE F (acute kidney injury): Code(s): N17.9 - Acute kidney failure, unspecified Status: Acute Assessment and Plan: Nephrology involved. Greatly appreciate recommendations involvement. Urine output improving significantly with Lasix infusion. Creatinine 3.1 BUN 101. Continue to monitor closely. Significant likelihood he will require dialysis at some point in the future. (5) Elevated troponin: Code(s): R77.8 - Other specified abnormalities of plasma proteins Status: Acute Assessment and Plan: No anginal symptoms. EKG without ischemic changes. Likely not ACS. Likely due to decompensated heart failure in setting of acute on chronic renal failure. (6) Chronic anticoagulation: Code(s): Z79.01 - nursing home (current) use of anticoagulants Status: Acute Assessment and Plan: Previously on warfarin for stroke risk reduction in AFib. INR 2.0 as above. Resume warfarin this evening at 3 mg daily may need to reduce further based on nutritional status. H&H stable. Daily INR. Subjective Date/time seen: Date of service: 02/22/23 11:49 Interval history: Reason for visit: Decompensated diastolic heart failure. HPI: This is a 77-year-old male with a history of coronary artery disease, atrial fibrillation, chronic kidney disease, insulin-dependent diabetes, hypertension, hyperlipidemia, sleep apnea, hypothyroidism who presented for worsening shortness of breath and lower extremity edema over past couple of days. Was admitted in December for acute on chronic diastolic heart failure and JOSE F on CKD. Patient states he usually has some swelling in his ankles, but it has gone up to the knees know. No chest pain. Reports full compliance with his medications at home. Patient noted to be satting 91% on room air on arrival to the ED, placed on supplemental oxygen with improvement. Given IV Lasix. Initial troponin at 0.093. BNP is higher than his previous admission in December. EKG showing rate controlled atrial fibrillation without ischemic changes. Date of service 02/18: Overnight, patient with worsening respiratory distress. Needed BIPAP but was not tolerating it. Minimal urine output with the Lasix, and was changed to Bumex. Overnight team had discussions with the patient and family, and since h
[2023-02-22 12:01] LABS: Glucose Point of Care 189 mg/dl (65-105)
--- NOTE | 2023-02-22 13:03 | P.PNNP_ITS ---
Progress Note: A&P Assessment and Plan (1) JOSE F (acute kidney injury): Code(s): N17.9 - Acute kidney failure, unspecified Status: Acute Assessment and Plan: * acute versus progression of disease (see #2) * creatinine a bit better but BUN higher * acute CHF and necessity of high dose diuretics likely playing a role as well * perhaps a component of renal hypoperfusion/soft BPs contributing but better hemodynamics noted at this time * on midodrine at this time * renal ultrasound (done a month ago) with any acute issue/problems * still remains at risk for needing/requiring [facility]/dialysis but it seems to be doing better with conservative therapy * continue diuretic gtt and titrate as needed * follow repeat labs and UOP (2) Chronic kidney disease, stage 3b: Code(s): N18.32 - Chronic kidney disease, stage 3b Status: Chronic Assessment and Plan: * baseline creatinine runs ~ 2.0mg/dl * due to HTN, DM, CHF, vascular disease, EILEEN/pulmonary hypertension, and age-related change * however, from his last hospitalization a month ago her, his creatinine was running higher due to diuresis and need for high dose diuretics * this may have led to some CKD progression to CKD stage 4 versus the fact that he needs a higher creatinine to achieve relative euvolemia * follows with Dr. Rodriguez for management of his CKD (3) Acute respiratory failure: Qualifiers: Respiratory failure complication: hypoxia and hypercapnia Qualified Code(s): J96.01 - Acute respiratory failure with hypoxia; J96.02 - Acute respiratory failure with hypercapnia; J96.02 - Acute respiratory failure with hypercapnia Code(s): J96.00 - Acute respiratory failure, unspecified whether with hypoxia or hypercapnia Status: Acute Assessment and Plan: * secondary to pulmonary edema from CHF and advancing CKD * questionable pneumonia * follow culture data - on antibiotics and to complete course tomorrow * NRB/BiPAP for respiratory support; on supplemental oxygen * continue diuresis (4) CHF (congestive heart failure): Code(s): I50.9 - Heart failure, unspecified Status: Acute Assessment and Plan: * acute on chronic (diastolic) * on lasix gtt with good diuresis in the last 24 hours * almost 4.8L negative since admission * recent Echo noted * follow I/Os, respiratory status, and exam * Cardiology following (5) Atrial fibrillation: Qualifiers: Atrial fibrillation type: paroxysmal Qualified Code(s): I48.0 - Paroxysmal atrial fibrillation Code(s): I48.91 - Unspecified atrial fibrillation Status: Acute Assessment and Plan: * continue rate control strategy * anticoagulation on hold (6) Type 2 diabetes mellitus: Code(s): E11.9 - Type 2 diabetes mellitus without complications Status: Acute Assessment and Plan: * follow accuchecks * on SSI and Lantus per hospitalists Will continue to follow. Subjective Date/time seen: 02/22/23 13:03 Interval history: Follow-up for acute kidney injury on chronic kidney disease and volume/fluid overload. Continues to have reasonable diuresis with lasix gtt with relative stability of creatinine although BUN remains elevated; patient reports some improvement in breathing; edema/swelling significantly better as well; moved out of ICU to IMU; no other acute complaints voiced at this time. Exam Narrative: General: elderly male in NAD Heart:IRRR, normal S1 and S2; no rub Piyush
--- NOTE | 2023-02-22 13:03 | PM.PNNEP ---
Progress Note: A&P Assessment and Plan (1) JOSE F (acute kidney injury): Code(s): N17.9 - Acute kidney failure, unspecified Status: Acute Assessment and Plan: acute versus progression of disease (see #2) creatinine a bit better but BUN higher acute CHF and necessity of high dose diuretics likely playing a role as well perhaps a component of renal hypoperfusion/soft BPs contributing but better hemodynamics noted at this time on midodrine at this time renal ultrasound (done a month ago) with any acute issue/problems still remains at risk for needing/requiring [employer]IN[employer]/dialysis but it seems to be doing better with conservative therapy continue diuretic gtt and titrate as needed follow repeat labs and UOP (2) Chronic kidney disease, stage 3b: Code(s): N18.32 - Chronic kidney disease, stage 3b Status: Chronic Assessment and Plan: baseline creatinine runs ~ 2.0mg/dl due to HTN, DM, CHF, vascular disease, EILEEN/pulmonary hypertension, and age-related change however, from his last hospitalization a month ago her, his creatinine was running higher due to diuresis and need for high dose diuretics this may have led to some CKD progression to CKD stage 4 versus the fact that he needs a higher creatinine to achieve relative euvolemia follows with Dr. Rodriguez for management of his CKD (3) Acute respiratory failure: Qualifiers: Respiratory failure complication: hypoxia and hypercapnia Qualified Code(s): J96.01 - Acute respiratory failure with hypoxia; J96.02 - Acute respiratory failure with hypercapnia; J96.02 - Acute respiratory failure with hypercapnia Code(s): J96.00 - Acute respiratory failure, unspecified whether with hypoxia or hypercapnia Status: Acute Assessment and Plan: secondary to pulmonary edema from CHF and advancing CKD questionable pneumonia follow culture data - on antibiotics and to complete course tomorrow NRB/BiPAP for respiratory support; on supplemental oxygen continue diuresis (4) CHF (congestive heart failure): Code(s): I50.9 - Heart failure, unspecified Status: Acute Assessment and Plan: acute on chronic (diastolic) on lasix gtt with good diuresis in the last 24 hours almost 4.8L negative since admission recent Echo noted follow I/Os, respiratory status, and exam Cardiology following (5) Atrial fibrillation: Qualifiers: Atrial fibrillation type: paroxysmal Qualified Code(s): I48.0 - Paroxysmal atrial fibrillation Code(s): I48.91 - Unspecified atrial fibrillation Status: Acute Assessment and Plan: continue rate control strategy anticoagulation on hold (6) Type 2 diabetes mellitus: Code(s): E11.9 - Type 2 diabetes mellitus without complications Status: Acute Assessment and Plan: follow accuchecks on SSI and Lantus per hospitalists Will continue to follow. Subjective Date/time seen: 02/22/23 13:03 Interval history: Follow-up for acute kidney injury on chronic kidney disease and volume/fluid overload. Continues to have reasonable diuresis with lasix gtt with relative stability of creatinine although BUN remains elevated; patient reports some improvement in breathing; edema/swelling significantly better as well; moved out of ICU to IMU; no other acute complaints voiced at this time. Exam Narrative: General: elderly male in NAD Heart:IRRR, normal S1 and S2; no rub Lungs: coarse breath sounds with scattered crackles at bases Abdomen: soft, nontender, nondistended, positive bowel sounds Extremities: no cyanosis or clubbing; trace edema Skin: no rash Objective Data Vital Signs Vital Signs: Vital Signs Temp Pulse Resp BP Pulse Ox O2 Del Method O2 Flow Rate 02/22/23 12:00 98 High Flow Nasal Cannula 5 02/22/23 12:06 97.3 F L 84 22 H 140/56 L 97 02/22/23 10:00 87 02/22/23 08:00 88
--- NOTE | 2023-02-22 14:05 | PM.IMPN ---
Progress Note: A&P Assessment and Plan (1) Acute respiratory failure: Qualifiers: Respiratory failure complication: hypoxia and hypercapnia Qualified Code(s): J96.01 - Acute respiratory failure with hypoxia; J96.02 - Acute respiratory failure with hypercapnia; J96.02 - Acute respiratory failure with hypercapnia Code(s): J96.00 - Acute respiratory failure, unspecified whether with hypoxia or hypercapnia Status: Acute Assessment and Plan: Acute respiratory failure likely secondary to pulmonary edema secondary to congestive heart failure and chronic kidney disease leading to volume overload -Pneumonia unlikely possibility as patient is afebrile, normal WBC and low procalcitonin level -02/17: Blood cultures -preliminary results with no growth -continue cefepime total of 5 days (started on 02/18) -patient was poorly responsive to IV Lasix so on 02/18 he was started on Lasix infusion with improvement in his urine output and negative fluid balance Patient remains on high-flow nasal cannula and BiPAP at night. P.r.n. BiPAP and during daytime. Chest x-ray with moderate pulmonary edema (2) CHF (congestive heart failure): Qualifiers: Heart failure chronicity: unspecified Heart failure type: unspecified Qualified Code(s): I50.9 - Heart failure, unspecified Code(s): I50.9 - Heart failure, unspecified Status: Acute Assessment and Plan: Echo Summary ? 1. Complete two-dimensional, color flow and Doppler transthoracic echocardiogram is performed. ? 2. Left ventricular chamber dimension is normal. ? 3. Left ventricular systolic function is normal, estimated at 55-60%. ? 4. There is mildly increased left ventricular wall thickness. ? 5. Global longitudinal strain is abnormal at -12 %. ? 6. Right ventricular systolic function is normal. ? 7. Left atrial chamber dimension is moderately enlarged. ? 8. Right atrial chamber dimension is mildly enlarged. ? 9. There is moderate aortic valve calcification. ? 10. There is mild aortic valve stenosis with a peak velocity of 245 cm/s, mean gradient of 12 mmHg, and aortic valve area of 1.9 cm2. ? 11. The mitral valve annulus is mildly calcified. ? 12. There is mild mitral valve regurgitation. ? 13. There is mild tricuspid valve regurgitation. ? 14. Pulmonary hypertension with estimated PASP of 52mmHg. Cardiology following Lasix infusion for volume overload 02/20: Discussed with Nephrology and Cardiology, will start midodrine for adequate blood pressure support and increase renal perfusion Five 0 continue diuresis with Lasix drip. Monitor renal function nephrology on board (3) Chronic kidney disease: Code(s): N18.9 - Chronic kidney disease, unspecified Status: Acute Assessment and Plan: Patient has chronic kidney disease and baseline creatinine is close to 2.0 Electrolytes have been acceptable tele but patient has volume overload Patient has been poorly responsive to IV bolus Lasix so was started on Lasix infusion on 02/18/2023 with good urine output, negative fluid balance, improvement in creatinine Appreciate nephrology following the patient Acceptable electrolytes and acid-base status at this time Urine output 3.5 L Today so far 3.3 L (4) Pneumonia: Qualifiers: Laterality: unspecified laterality Lung location: unspecified part of lung Pneumonia type: due to unspecified organism Qualified Code(s): J18.9 - Pneumonia, unspecified organism Code(s): J18.9 - Pneumonia, unspecified organism Status: Acute Assessment and Plan: See above (5) Type 2 diabetes mellitus: Code(s): E11.9 - Type 2 diabetes mellitus without complications Status: Acute Assessment and Plan: SSI and Lantus (6) Atrial fibrillation: Qualifiers: Atrial fibrillation type: paroxysmal Qualified Code(s): I48.0 - Paroxysmal atrial fibrillation Code(s): I48.91 - Unspecified atrial fibrillation
[2023-02-22 15:48] LABS: Glucose Point of Care 224 mg/dl (65-105)
[2023-02-22] MEDS: INSULIN ASPART (*BKC) 100 UNITS/ML SUB-Q (17:06)
[2023-02-22] MEDS: WARFARIN (*PBKC) 3 MG TABLET PO (17:43)
[2023-02-22 20:22] LABS: Glucose Point of Care 190 mg/dl (65-105)
--- NOTE | 2023-02-22 22:58 | PC.NURSE ---
patients heart rate decreased down to mid to low 30's. ran into room to check on patient and he was choking on a small bite of a sandwich. lots of coughing and turning red, sandwich taken away took a few minutes but patient is better . heart rate increased almost immediately.
[2023-02-23] VITALS (21 sets, daily range): BP systolic 121–143; BP diastolic 73–96; PULSE 59–94; RESP 18–22; TEMP 36.3–36.6; O2SAT 90–100
[2023-02-23] MEDS: ONDANSETRON HCL ODT 4 MG TABLET 8 MG PO ×2 (04:02→15:17)
[2023-02-23 05:23] LABS: Hematocrit 34.7 % (42.0-52.0); Hemoglobin 10.8 g/dL (14.0-18.0); Mean Corpuscular HGB Conc 31.1 g/dl (32-36); Mean Corpuscular Hemoglobin 29.5 pg (26-34); Mean Corpuscular Volume 94.8 fl (80-100); Mean Platelet Volume 10.7 fl (7.4-10.4); Platelet Count Result 327 k/mm3 (150-375); Red Blood Count 3.66 M/mm3 (4.6-6.20); Red Cell Distribution Width 15.2 % (11.5-14.5)
[2023-02-23 05:33] LABS: Alanine Aminotransferase 24 U/L (6-50); Albumin Level 3.9 g/dL (3.5-5.1); Alkaline Phosphatase 113 U/L (38-126); Anion Gap 9 mmol/L (8-16); Aspartate Amino Transferase 25 U/L (17-59); Bilirubin,Total 0.6 mg/dL (0.2-1.3); Blood Urea Nitrogen 97 mg/dL (9-20); Calcium 9.2 mg/dL (8.4-10.2); Carbon Dioxide 33 mmol/L (22-30); Chloride 98 mmol/L (98-107); Estimated CRCL calculation 27 ml/min; Estimated Glomerular Filt Rate 22; Glucose 217 mg/dL (65-110); Magnesium 2.3 mg/dL (1.6-2.3); Potassium 3.6 mmol/L (3.4-5.0); Sodium 140 mmol/L (137-145)
[2023-02-23 05:39] LABS: INR 1.7; Prothrombin Time 21.1 Seconds (11.1-14.7)
[2023-02-23] MEDS: LEVOTHYROXINE SODIUM 50 MCG TABLET PO (06:01)
--- NOTE | 2023-02-23 06:27 | PC.NURSE ---
patient is on 5l hfnc, he takes it off and picks his nose until it bleeds. patient was informed that he should not pick his nose, just blow it. patient was informed about the high amount of o2 that he is on and on blood thinners. he has humidity attached.
[2023-02-23 07:39] LABS: Glucose Point of Care 207 mg/dl (65-105)
[2023-02-23] MEDS: FUROSEMIDE INJ 100 MG in SODIUM CHLORIDE 0.9% IV 90 ML 7.5 MG IV CONT ×2 (08:46→20:16)
--- NOTE | 2023-02-23 08:53 | PM.IMPN ---
Progress Note: A&P Assessment and Plan (1) Acute respiratory failure: Qualifiers: Respiratory failure complication: hypoxia and hypercapnia Qualified Code(s): J96.01 - Acute respiratory failure with hypoxia; J96.02 - Acute respiratory failure with hypercapnia; J96.02 - Acute respiratory failure with hypercapnia Code(s): J96.00 - Acute respiratory failure, unspecified whether with hypoxia or hypercapnia Status: Acute Assessment and Plan: Acute respiratory failure likely secondary to pulmonary edema secondary to congestive heart failure and chronic kidney disease leading to volume overload -Pneumonia unlikely possibility as patient is afebrile, normal WBC and low procalcitonin level -02/17: Blood cultures -preliminary results with no growth -continue cefepime total of 5 days (started on 02/18) -patient was poorly responsive to IV Lasix so on 02/18 he was started on Lasix infusion with improvement in his urine output and negative fluid balance Patient remains on high-flow nasal cannula and BiPAP at night. P.r.n. BiPAP and during daytime. Chest x-ray with moderate pulmonary edema. Continue on IV Lasix as tolerated. (2) CHF (congestive heart failure): Qualifiers: Heart failure chronicity: unspecified Heart failure type: unspecified Qualified Code(s): I50.9 - Heart failure, unspecified Code(s): I50.9 - Heart failure, unspecified Status: Acute Assessment and Plan: Echo Summary ? 1. Complete two-dimensional, color flow and Doppler transthoracic echocardiogram is performed. ? 2. Left ventricular chamber dimension is normal. ? 3. Left ventricular systolic function is normal, estimated at 55-60%. ? 4. There is mildly increased left ventricular wall thickness. ? 5. Global longitudinal strain is abnormal at -12 %. ? 6. Right ventricular systolic function is normal. ? 7. Left atrial chamber dimension is moderately enlarged. ? 8. Right atrial chamber dimension is mildly enlarged. ? 9. There is moderate aortic valve calcification. ? 10. There is mild aortic valve stenosis with a peak velocity of 245 cm/s, mean gradient of 12 mmHg, and aortic valve area of 1.9 cm2. ? 11. The mitral valve annulus is mildly calcified. ? 12. There is mild mitral valve regurgitation. ? 13. There is mild tricuspid valve regurgitation. ? 14. Pulmonary hypertension with estimated PASP of 52mmHg. Cardiology following Lasix infusion for volume overload 02/20: Discussed with Nephrology and Cardiology, will start midodrine for adequate blood pressure support and increase renal perfusion continue diuresis with Lasix drip. Monitor renal function nephrology on board (3) Chronic kidney disease: Code(s): N18.9 - Chronic kidney disease, unspecified Status: Acute Assessment and Plan: Patient has chronic kidney disease and baseline creatinine is close to 2.0 Electrolytes have been acceptable tele but patient has volume overload Patient has been poorly responsive to IV bolus Lasix so was started on Lasix infusion on 02/18/2023 with good urine output, negative fluid balance, improvement in creatinine Appreciate nephrology following the patient Acceptable electrolytes and acid-base status at this time Remains negative (4) Pneumonia: Qualifiers: Laterality: unspecified laterality Lung location: unspecified part of lung Pneumonia type: due to unspecified organism Qualified Code(s): J18.9 - Pneumonia, unspecified organism Code(s): J18.9 - Pneumonia, unspecified organism Status: Acute Assessment and Plan: See above (5) Type 2 diabetes mellitus: Code(s): E11.9 - Type 2 diabetes mellitus without complications Status: Acute Assessment and Plan: SSI and Lantus (6) Atrial fibrillation: Qualifiers: Atrial fibrillation type: paroxysmal Qualified Code(s): I48.0 - Paroxysmal atrial fibrillation Code(s): I48.91 - Unspecified atrial fibrillat
[2023-02-23] MEDS: AMIODARONE HCL 200 MG TABLET PO (09:25)
[2023-02-23] MEDS: PANTOPRAZOLE 40 MG TABLET PO (09:25)
[2023-02-23] MEDS: METOPROLOL TARTRATE 25 MG TABLET PO ×2 (09:25→20:17)
[2023-02-23] MEDS: CLOPIDOGREL BISULFATE 75 MG TABLET PO (09:25)
[2023-02-23] MEDS: MIDODRINE HCL 10 MG TABLET PO ×3 (09:28→16:45)
[2023-02-23] MEDS: TOLNAFTATE 1% POWDER 45 GM BTL 1 APPLIC TOPICAL ×2 (09:29→20:17)
[2023-02-23] MEDS: THERAPEUTIC MULTIVITAMINS/MINERALS TAB (*BKC) 1 TABLET PO (09:34)
[2023-02-23] MEDS: INSULIN GLARGINE (*BKC) 100 UNITS/ML 20 UNITS SUB-Q (09:37)
--- NOTE | 2023-02-23 09:53 | PCSTNOTE ---
Please refer to the Modified Barium Swallow Evaluation in the EMR.
--- NOTE | 2023-02-23 10:32 | PM.PNCARD ---
Progress Note: A&P Assessment and Plan (1) Acute on chronic diastolic (congestive) heart failure: Code(s): I50.33 - Acute on chronic diastolic (congestive) heart failure Status: Acute Assessment and Plan: Recent echocardiogram in 11/2022 shows LVEF 55-60%, mild , mild MR, mild TR, pulmonary hypertension. -he remains on significant O2 supplementation. Wean as tolerated. -recommend continuation of Lasix infusion at 7.5mg/hour. Nephrology following, still at risk for needing dialysis, but stable for not on diuretic gtt -midodrine 10 mg 3 times daily added to bolster his blood pressure and potentially improve perfusion and response to diuretic therapy. Continue for now. BP stable. (2) Atrial fibrillation: Qualifiers: Atrial fibrillation type: paroxysmal Qualified Code(s): I48.0 - Paroxysmal atrial fibrillation Code(s): I48.91 - Unspecified atrial fibrillation Status: Acute Assessment and Plan: Continue Amiodarone 200mg daily and metoprolol tartrate 25 mg twice daily. Heart rate controlled at this time. Previously on warfarin to reduce embolic stroke risk. INR stable at 2.0. Resume warfarin 3 mg daily this evening. Daily INR. (3) Hyperthyroidism: Code(s): E05.90 - Thyrotoxicosis, unspecified without thyrotoxic crisis or storm Status: Acute Assessment and Plan: Levothyroxine reduced to 50 mcg daily, management per primary service TSH less than 0.015 (4) JOSE F (acute kidney injury): Code(s): N17.9 - Acute kidney failure, unspecified Status: Acute Assessment and Plan: Nephrology involved. Greatly appreciate recommendations involvement. Urine output improving significantly with Lasix infusion. Creatinine 3.1 BUN 101. Continue to monitor closely. Significant likelihood he will require dialysis at some point in the future. (5) Elevated troponin: Code(s): R77.8 - Other specified abnormalities of plasma proteins Status: Acute Assessment and Plan: No anginal symptoms. EKG without ischemic changes. Likely not ACS. Likely due to decompensated heart failure in setting of acute on chronic renal failure. 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 INR 2.0 as above. Resume warfarin this evening at 3 mg daily may need to reduce further based on nutritional status. H&H stable. Daily INR. Subjective Date/time seen: 02/23/23 10:32 Interval history: Reason for visit: Decompensated diastolic heart failure. HPI: This is a 77-year-old male with a history of coronary artery disease, atrial fibrillation, chronic kidney disease, insulin-dependent diabetes, hypertension, hyperlipidemia, sleep apnea, hypothyroidism who presented for worsening shortness of breath and lower extremity edema over past couple of days. Was admitted in December for acute on chronic diastolic heart failure and JOSE F on CKD. Patient states he usually has some swelling in his ankles, but it has gone up to the knees know. No chest pain. Reports full compliance with his medications at home. Patient noted to be satting 91% on room air on arrival to the ED, placed on supplemental oxygen with improvement. Given IV Lasix. Initial troponin at 0.093. BNP is higher than his previous admission in December. EKG showing rate controlled atrial fibrillation without ischemic changes. Date of service 02/18: Overnight, patient with worsening respiratory distress. Needed BIPAP but was not tolerating it. Minimal urine output with the Lasix, and was changed to Bumex. Overnight team had discussions with the patient and family, and since he was not tolerating BIPAP, patient had initially just wanted to be comfort care, so comfort care measures were initiated, however, this morning, patient changed his mind. Currently on non-rebreather with shortness of anjel
[2023-02-23 11:26] LABS: Glucose Point of Care 287 mg/dl (65-105)
--- NOTE | 2023-02-23 11:39 | PM.PNNEP ---
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 but renal function seems to be doing better with conservative therapy continue diuretic gtt and titrate as needed follow repeat labs and UOP (2) Chronic kidney disease, stage 3b: Code(s): N18.32 - Chronic kidney disease, stage 3b Status: Chronic Assessment and Plan: baseline creatinine runs ~ 2.0mg/dl due to HTN, DM, CHF, vascular disease, EILEEN/pulmonary hypertension, and age-related change however, from his last hospitalization a month ago her, his creatinine was running higher due to diuresis and need for high dose diuretics this may have led to some CKD progression to CKD stage 4 versus the fact that he needs a higher creatinine to achieve relative euvolemia follows with Dr. Rodriguez for management of his CKD (3) Acute respiratory failure: Qualifiers: Respiratory failure complication: hypoxia and hypercapnia Qualified Code(s): J96.01 - Acute respiratory failure with hypoxia; J96.02 - Acute respiratory failure with hypercapnia; J96.02 - Acute respiratory failure with hypercapnia Code(s): J96.00 - Acute respiratory failure, unspecified whether with hypoxia or hypercapnia Status: Acute Assessment and Plan: secondary to pulmonary edema from CHF and advancing CKD questionable pneumonia follow culture data - on antibiotics and to complete course tomorrow NRB/BiPAP for respiratory support; on supplemental oxygen continue diuresis (4) CHF (congestive heart failure): Code(s): I50.9 - Heart failure, unspecified Status: Acute Assessment and Plan: acute on chronic (diastolic) on lasix gtt with good diuresis almost 6.3L negative since admission recent Echo noted follow I/Os, respiratory status, and exam Cardiology following (5) Atrial fibrillation: Qualifiers: Atrial fibrillation type: paroxysmal Qualified Code(s): I48.0 - Paroxysmal atrial fibrillation Code(s): I48.91 - Unspecified atrial fibrillation Status: Acute Assessment and Plan: continue rate control strategy anticoagulation on hold (6) Type 2 diabetes mellitus: Code(s): E11.9 - Type 2 diabetes mellitus without complications Status: Acute Assessment and Plan: follow accuchecks on SSI and Lantus per hospitalists Will continue to follow. Subjective Date/time seen: 02/23/23 11:39 Interval history: Follow-up for acute kidney injury on chronic kidney disease and volume/fluid overload. Breathing and lower extremity edema continue to improve; renal function relatively stable in spite of lasix gtt and good diuresis; no other acute issues/events overnight or earlier this morning; still related some on/off shortness of breath and still requiring supplemental oxygen as well. Exam Narrative: General: elderly male in NAD Heart:IRRR, normal S1 and S2; no rub Lungs: coarse breath sounds with Abdomen: soft, nontender, nondistended, positive bowel sounds Extremities: no cyanosis or clubbing; trace edema Skin: no noduiles Objective Data Vital Signs Vital Signs: Vital Signs Temp Pulse Resp BP Pulse Ox O2 Del Method O2 Flow Rate 02/23/23 11:12 97.7 F 84 20 136/82 97 02/23/23 10:00 84 02/23/23 08:00 100 High Flow Nasal Cannula 4 02/23/23 08:00 89 02/23/23 09:25 90 02/23/23 09:25 90
--- NOTE | 2023-02-23 11:39 | P.PNNP_ITS ---
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/dialysis but renal function seems to be doing better with conservative therapy * continue diuretic gtt and titrate as needed * follow repeat labs and UOP (2) Chronic kidney disease, stage 3b: Code(s): N18.32 - Chronic kidney disease, stage 3b Status: Chronic Assessment and Plan: * baseline creatinine runs ~ 2.0mg/dl * due to HTN, DM, CHF, vascular disease, EILEEN/pulmonary hypertension, and age- related change * however, from his last hospitalization a month ago her, his creatinine was running higher due to diuresis and need for high dose diuretics * this may have led to some CKD progression to CKD stage 4 versus the fact that he needs a higher creatinine to achieve relative euvolemia * follows with Dr. Rodriguez for management of his CKD (3) Acute respiratory failure: Qualifiers: Respiratory failure complication: hypoxia and hypercapnia Qualified Code(s): J96.01 - Acute respiratory failure with hypoxia; J96.02 - Acute respiratory failure with hypercapnia; J96.02 - Acute respiratory failure with hypercapnia Code(s): J96.00 - Acute respiratory failure, unspecified whether with hypoxia or hypercapnia Status: Acute Assessment and Plan: * secondary to pulmonary edema from CHF and advancing CKD * questionable pneumonia * follow culture data - on antibiotics and to complete course tomorrow * NRB/BiPAP for respiratory support; on supplemental oxygen * continue diuresis (4) CHF (congestive heart failure): Code(s): I50.9 - Heart failure, unspecified Status: Acute Assessment and Plan: * acute on chronic (diastolic) * on lasix gtt with good diuresis * almost 6.3L negative since admission * recent Echo noted * follow I/Os, respiratory status, and exam * Cardiology following (5) Atrial fibrillation: Qualifiers: Atrial fibrillation type: paroxysmal Qualified Code(s): I48.0 - Paroxysmal atrial fibrillation Code(s): I48.91 - Unspecified atrial fibrillation Status: Acute Assessment and Plan: * continue rate control strategy * anticoagulation on hold (6) Type 2 diabetes mellitus: Code(s): E11.9 - Type 2 diabetes mellitus without complications Status: Acute Assessment and Plan: * follow accuchecks * on SSI and Lantus per hospitalists Will continue to follow. Subjective Date/time seen: 02/23/23 11:39 Interval history: Follow-up for acute kidney injury on chronic kidney disease and volume/fluid overload. Breathing and lower extremity edema continue to improve; renal function relatively stable in spite of lasix gtt and good diuresis; no other acute issues/events overnight or earlier this morning; still related some on/off shortness of breath and still requiring supplemental oxygen as well. Exam Narrative: General: elderly male in NAD Heart:IRRR, normal S1 and S2; no rub Lungs: coarse breath sounds wi
[2023-02-23] MEDS: INSULIN ASPART (*BKC) 100 UNITS/ML SUB-Q ×2 (11:50→16:44)
--- NOTE | 2023-02-23 12:13 | PCNFU ---
Nutrition Follow-Up Complete: Inadequate energy intake related to reduced appetite as evidenced by charted intake and nursing report Goal:PO intake greater than 50% of meals and supplements Pt current nutrition is Minced and moist level 5, Renal/Heart healthy. Nutrition recommendation: D/C Ensure compact per pt request Last recorded weight is 119 kg. Bowel Motility: +BM 5/ Labs Reviewed: Hgb:10.8, HCT:34.7, BUN:97,Cr:2.8, Glu:207 Meds Noted: lantus, novolog, lasix, coumadin Skin: WNL Additional Notes: Pt now on a level 5 minced and moist diet, Intake varied but recently 75-100%. Pt does not like Ensure and would like it d/c'd Monitor intake, wt, labs. Follow up in 7 days.
[2023-02-23 16:11] LABS: Glucose Point of Care 228 mg/dl (65-105)
[2023-02-23] MEDS: WARFARIN (*PBKC) 5 MG TABLET PO (17:44)
[2023-02-23 20:29] LABS: Glucose Point of Care 266 mg/dl (65-105)
--- NOTE | 2023-02-23 21:48 | PC.NURSE ---
patient is more confused, hasn't slept for a couple nights, patient is yelling out that he is hot but with fan on he says he is cold. he can't make up his mind.
[2023-02-23] MEDS: MELATONIN 5 MG TABLET PO (21:53)
--- NOTE | 2023-02-23 23:46 | PCRCNOTE ---
Pt refused CPAP
[2023-02-24] VITALS (17 sets, daily range): BP systolic 106–144; BP diastolic 60–70; PULSE 53–83; RESP 16–20; TEMP 36.2–36.4; O2SAT 94–99
[2023-02-24 04:36] LABS: Basophils Absolute Auto 0.1 K/mm3 (0.0-0.1); Basophils Percent Auto 0.8 % (0.2-1.2); Eosinophils Absolute Auto 0.5 K/mm3 (0-0.3); Eosinophils Percent Auto 4.8 % (0-4.4); Hematocrit 36.3 % (42.0-52.0); Hemoglobin 11.4 g/dL (14.0-18.0); Immature Granulocyte Absolute 0.05 K/mm3 (0.00-0.031); Immature Granulocyte Percent A 0.5 % (0-0.5); Lymphocytes Absolute Auto 1.96 K/mm3 (0.9-3.2); Lymphocytes Percent Auto 17.9 % (18.3-44.2); Mean Corpuscular HGB Conc 31.4 g/dl (32-36); Mean Corpuscular Hemoglobin 30.6 pg (26-34); Mean Corpuscular Volume 97.6 fl (80-100); Mean Platelet Volume 10.2 fl (7.4-10.4); Monocytes Absolute Auto 0.9 K/mm3 (0.1-0.6); Neutrophils Absolute Auto 7.5 K/mm3 (1.3-6.7); Platelet Count Result 339 k/mm3 (150-375); Red Blood Count 3.72 M/mm3 (4.6-6.20); Red Cell Distribution Width 15.2 % (11.5-14.5)
[2023-02-24 04:48] LABS: INR 1.5; Prothrombin Time 19.5 Seconds (11.1-14.7)
[2023-02-24 04:54] LABS: Alanine Aminotransferase 24 U/L (6-50); Albumin Level 3.9 g/dL (3.5-5.1); Alkaline Phosphatase 109 U/L (38-126); Aspartate Amino Transferase 24 U/L (17-59); Bilirubin,Total 0.5 mg/dL (0.2-1.3); Blood Urea Nitrogen 92 mg/dL (9-20); Calcium 9.4 mg/dL (8.4-10.2); Carbon Dioxide > 40 mmol/L (22-30); Chloride 96 mmol/L (98-107); Estimated CRCL calculation 25 ml/min; Estimated Glomerular Filt Rate 20; Glucose 181 mg/dL (65-110); Magnesium 2.3 mg/dL (1.6-2.3); Potassium 3.5 mmol/L (3.4-5.0); Sodium 143 mmol/L (137-145)
[2023-02-24] MEDS: LEVOTHYROXINE SODIUM 50 MCG TABLET PO (06:14)
[2023-02-24 08:38] LABS: Glucose Point of Care 164 mg/dl (65-105)
[2023-02-24] MEDS: PANTOPRAZOLE 40 MG TABLET PO (09:37)
[2023-02-24] MEDS: MIDODRINE HCL 10 MG TABLET PO (09:37)
[2023-02-24] MEDS: TOLNAFTATE 1% POWDER 45 GM BTL 1 APPLIC TOPICAL ×2 (09:37→20:34)
[2023-02-24] MEDS: METOPROLOL TARTRATE 25 MG TABLET PO ×2 (09:37→20:33)
[2023-02-24] MEDS: THERAPEUTIC MULTIVITAMINS/MINERALS TAB (*BKC) 1 TABLET PO (09:37)
[2023-02-24] MEDS: CLOPIDOGREL BISULFATE 75 MG TABLET PO (09:38)
[2023-02-24] MEDS: AMIODARONE HCL 200 MG TABLET PO (09:38)
[2023-02-24] MEDS: INSULIN GLARGINE (*BKC) 100 UNITS/ML 20 UNITS SUB-Q (09:38)
--- NOTE | 2023-02-24 11:45 | PM.PNNEP ---
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 but renal function seems to be doing better with conservative therapy continue diuretic gtt for now consider transitioning to scheduled IV or oral diuretics tomorrow however, concerning that he did not respond to these interventions on admission follow repeat labs and UOP (2) Chronic kidney disease, stage 3b: Code(s): N18.32 - Chronic kidney disease, stage 3b Status: Chronic Assessment and Plan: baseline creatinine runs ~ 2.0mg/dl due to HTN, DM, CHF, vascular disease, EILEEN/pulmonary hypertension, and age-related change however, from his last hospitalization a month ago her, his creatinine was running higher due to diuresis and need for high dose diuretics this may have led to some CKD progression to CKD stage 4 versus the fact that he needs a higher creatinine to achieve relative euvolemia follows with Dr. Rodriguez for management of his CKD (3) Acute respiratory failure: Qualifiers: Respiratory failure complication: hypoxia and hypercapnia Qualified Code(s): J96.01 - Acute respiratory failure with hypoxia; J96.02 - Acute respiratory failure with hypercapnia; J96.02 - Acute respiratory failure with hypercapnia Code(s): J96.00 - Acute respiratory failure, unspecified whether with hypoxia or hypercapnia Status: Acute Assessment and Plan: secondary to pulmonary edema from CHF and advancing CKD questionable pneumonia follow culture data - on antibiotics and to complete course tomorrow NRB/BiPAP for respiratory support; on supplemental oxygen continue diuresis (4) CHF (congestive heart failure): Code(s): I50.9 - Heart failure, unspecified Status: Acute Assessment and Plan: acute on chronic (diastolic) on lasix gtt with good diuresis almost 8L negative since admission recent Echo noted follow I/Os, respiratory status, and exam Cardiology following (5) Atrial fibrillation: Qualifiers: Atrial fibrillation type: paroxysmal Qualified Code(s): I48.0 - Paroxysmal atrial fibrillation Code(s): I48.91 - Unspecified atrial fibrillation Status: Acute Assessment and Plan: continue rate control strategy on anticoagulation (6) Type 2 diabetes mellitus: Code(s): E11.9 - Type 2 diabetes mellitus without complications Status: Acute Assessment and Plan: follow accuchecks on SSI and Lantus per hospitalists Will continue to follow. Subjective Date/time seen: 02/24/23 11:45 Interval history: Follow-up for acute kidney injury on chronic kidney disease and volume/fluid overload. Major complaint at the time of my visit is that of a sore throat that won't go away. -- he reports that is breath is stable but he still visibly seems a bit short of breath; oxygen require weaned down to 3L oxygen; continues to tolerated lasix gtt and associated diuresis with relative stability in renal function. Exam Narrative: General: elderly male in NAD Heart:IRRR, normal S1 and S2; no rub Lungs: coarse breath sounds with occassional crackles Abdomen: soft, nontender, nondistended, positive bowel sounds Extremities: no cyanosis or clubbing; trace edema Skin: warm and dry Objective Data Vital Signs Vital Signs: Vital Signs Temp Pulse Resp BP Pulse Ox O2 Del Method O2 Flow Rate 02/24/23 11:40 98 High
--- NOTE | 2023-02-24 11:45 | P.PNNP_ITS ---
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/dialysis but renal function seems to be doing better with conservative therapy * continue diuretic gtt for now * consider transitioning to scheduled IV or oral diuretics tomorrow * however, concerning that he did not respond to these interventions on admission * follow repeat labs and UOP (2) Chronic kidney disease, stage 3b: Code(s): N18.32 - Chronic kidney disease, stage 3b Status: Chronic Assessment and Plan: * baseline creatinine runs ~ 2.0mg/dl * due to HTN, DM, CHF, vascular disease, EILEEN/pulmonary hypertension, and age- related change * however, from his last hospitalization a month ago her, his creatinine was running higher due to diuresis and need for high dose diuretics * this may have led to some CKD progression to CKD stage 4 versus the fact that he needs a higher creatinine to achieve relative euvolemia * follows with Dr. Rodriguez for management of his CKD (3) Acute respiratory failure: Qualifiers: Respiratory failure complication: hypoxia and hypercapnia Qualified Cod e(s): J96.01 - Acute respiratory failure with hypoxia; J96.02 - Acute respiratory failure with hypercapnia; J96.02 - Acute respiratory failure with hypercapnia Code(s): J96.00 - Acute respiratory failure, unspecified whether with hypoxia or hyper capnia Status: Acute Assessment and Plan: * secondary to pulmonary edema from CHF and advancing CKD * questionable pneumonia * follow culture data - on antibiotics and to complete course tomorrow * NRB/BiPAP for respiratory support; on supplemental oxygen * continue diuresis (4) CHF (congestive heart failure): Code(s): I50.9 - Heart failure, unspecified Status: Acute Assessment and Plan: * acute on chronic (diastolic) * on lasix gtt with good diuresis * almost 8L negative since admission * recent Echo noted * follow I/Os, respiratory status, and exam * Cardiology following (5) Atrial fibrillation: Qualifiers: Atrial fibrillation type: paroxysmal Qualified Code(s): I48.0 - Paroxysmal atrial fibrillation Code(s): I48.91 - Unspecified atrial fibrillation Status: Acute Assessment and Plan: * continue rate control strategy * on anticoagulation (6) Type 2 diabetes mellitus: Code(s): E11.9 - Type 2 diabetes mellitus without complications Status: Acute Assessment and Plan: * follow accuchecks * on SSI and Lantus per hospitalists Will continue to follow. Subjective Date/time seen: 02/24/23 11:45 Interval history: Follow-up for acute kidney injury on chronic kidney disease and volume/fluid overload. Major complaint at the time of my visit is that of a sore throat that won't go away. -- he reports that is breath is stable but he still visibly seems a bit short of breath; oxygen require weaned down to 3L oxygen; continues to tolerated lasix gtt and associated diuresis with relative stability in renal funct
[2023-02-24 12:11] LABS: Glucose Point of Care 263 mg/dl (65-105)
[2023-02-24] MEDS: FUROSEMIDE INJ 100 MG in SODIUM CHLORIDE 0.9% IV 90 ML 7.5 MG IV CONT (12:40)
[2023-02-24] MEDS: INSULIN ASPART (*BKC) 100 UNITS/ML SUB-Q ×2 (12:40→16:22)
[2023-02-24] MEDS: acetaZOLAMIDE SODIUM FOR INJ 500 MG VIAL IV PUSH (12:40)
--- NOTE | 2023-02-24 14:43 | P.PNIM_ITS ---
Progress Note: A&P Assessment and Plan (1) Acute respiratory failure: Qualifiers: Respiratory failure complication: hypoxia and hypercapnia Qualified Code(s): J96.01 - Acute respiratory failure with hypoxia; J96.02 - Acute respiratory failure with hypercapnia; J96.02 - Acute respiratory failure with hypercapnia Code(s): J96.00 - Acute respiratory failure, unspecified whether with hypoxia or hypercapnia Status: Acute Assessment and Plan: Acute respiratory failure likely secondary to pulmonary edema secondary to congestive heart failure and chronic kidney disease leading to volume overload -Pneumonia unlikely possibility as patient is afebrile, normal WBC and low procalcitonin level -02/17: Blood cultures -preliminary results with no growth -continue cefepime total of 5 days (started on 02/18) -patient was poorly responsive to IV Lasix so on 02/18 he was started on Lasix infusion with improvement in his urine output and negative fluid balance Patient remains on high-flow nasal cannula and BiPAP at night. P.r.n. BiPAP and during daytime. Chest x-ray with moderate pulmonary edema. Continue on IV Lasix as tolerated. Discussed with Nephrology 02/24/2023 (2) CHF (congestive heart failure): Qualifiers: Heart failure chronicity: unspecified Heart failure type: unspecified Qualified Code(s): I50.9 - Heart failure, unspecified Code(s): I50.9 - Heart failure, unspecified Status: Acute Assessment and Plan: Echo Summary ? 1. Complete two-dimensional, color flow and Doppler transthoracic echocardiogram is performed. ? 2. Left ventricular chamber dimension is normal. ? 3. Left ventricular systolic function is normal, estimated at 55-60%. ? 4. There is mildly increased left ventricular wall thickness. ? 5. Global longitudinal strain is abnormal at -12 %. ? 6. Right ventricular systolic function is normal. ? 7. Left atrial chamber dimension is moderately enlarged. ? 8. Right atrial chamber dimension is mildly enlarged. ? 9. There is moderate aortic valve calcification. ? 10. There is mild aortic valve stenosis with a peak velocity of 245 cm/s, mean gradient of 12 mmHg, and aortic valve area of 1.9 cm2. ? 11. The mitral valve annulus is mildly calcified. ? 12. There is mild mitral valve regurgitation. ? 13. There is mild tricuspid valve regurgitation. ? 14. Pulmonary hypertension with estimated PASP of 52mmHg. Cardiology following Lasix infusion for volume overload 02/20: Discussed with Nephrology and Cardiology, will start midodrine for adequate blood pressure support and increase renal perfusion continue diuresis with Lasix drip. Monitor renal function nephrology on board (3) Chronic kidney disease: Code(s): N18.9 - Chronic kidney disease, unspecified Status: Acute Assessment and Plan: Patient has chronic kidney disease and baseline creatinine is close to 2.0 Electrolytes have been acceptable tele but patient has volume overload Patient has been poorly responsive to IV bolus Lasix so was started on Lasix infusion on 02/18/2023 with good urine output, negative fluid balance, impro vement in creatinine Appreciate nephrology following the patient Acceptable electrolytes and acid-base status at this time Remains negative (4) Pneumonia: Qualifiers: Laterality: unspecified laterality Lung location: unspecified part of lung Pneumonia type: due to unspecified organism Qualified Code(s): J18.9 - Pneumonia, unspecified organism Code(s): J18.9 - Pneumonia, unspecified organism Status: Acute Assessment and Plan: See above (5) T
[2023-02-24] MEDS: WARFARIN (*PBKC) 5 MG TABLET PO (16:22)
[2023-02-24 17:59] LABS: Glucose Point of Care 206 mg/dl (65-105)
[2023-02-24 20:25] LABS: Glucose Point of Care 264 mg/dl (65-105)
[2023-02-24] MEDS: MELATONIN 5 MG TABLET PO (20:33)
[2023-02-24] MEDS: ONDANSETRON HCL ODT 4 MG TABLET 8 MG PO (20:39)
[2023-02-25] VITALS (16 sets, daily range): BP systolic 104–128; BP diastolic 55–78; PULSE 55–102; RESP 16–20; TEMP 35.3–36.7; O2SAT 91–100
[2023-02-25] MEDS: FUROSEMIDE INJ 100 MG in SODIUM CHLORIDE 0.9% IV 90 ML 7.5 MG IV CONT ×2 (00:44→14:31)
[2023-02-25 04:25] LABS: Basophils Absolute Auto 0.1 K/mm3 (0.0-0.1); Basophils Percent Auto 0.5 % (0.2-1.2); Eosinophils Absolute Auto 0.4 K/mm3 (0-0.3); Hematocrit 36.2 % (42.0-52.0); Hemoglobin 10.9 g/dL (14.0-18.0); Immature Granulocyte Absolute 0.03 K/mm3 (0.00-0.031); Immature Granulocyte Percent A 0.3 % (0-0.5); Lymphocytes Percent Auto 16.5 % (18.3-44.2); Mean Corpuscular HGB Conc 30.1 g/dl (32-36); Mean Corpuscular Hemoglobin 29.2 pg (26-34); Mean Corpuscular Volume 97.1 fl (80-100); Monocytes Absolute Auto 0.9 K/mm3 (0.1-0.6); Monocytes Percent Auto 8.1 % (2.6-8.5); Neutrophils Absolute Auto 7.7 K/mm3 (1.3-6.7); Neutrophils Percent Auto 70.6 % (45.5-73.1); Platelet Count Result 335 k/mm3 (150-375); Red Blood Count 3.73 M/mm3 (4.6-6.20); Red Cell Distribution Width 15.1 % (11.5-14.5); White Blood Count 10.9 K/mm3 (4.5-10.0)
[2023-02-25 04:44] LABS: Alanine Aminotransferase 22 U/L (6-50); Albumin Level 3.8 g/dL (3.5-5.1); Alkaline Phosphatase 104 U/L (38-126); Anion Gap 8 mmol/L (8-16); Aspartate Amino Transferase 25 U/L (17-59); Bilirubin,Total 0.5 mg/dL (0.2-1.3); Blood Urea Nitrogen 89 mg/dL (9-20); Calcium 9.1 mg/dL (8.4-10.2); Carbon Dioxide 38 mmol/L (22-30); Chloride 94 mmol/L (98-107); Estimated CRCL calculation 24 ml/min; Estimated Glomerular Filt Rate 20; Glucose 174 mg/dL (65-110); Magnesium 2.2 mg/dL (1.6-2.3); Potassium 3.4 mmol/L (3.4-5.0); Sodium 140 mmol/L (137-145)
[2023-02-25] MEDS: LEVOTHYROXINE SODIUM 50 MCG TABLET PO (05:47)
[2023-02-25 08:14] LABS: Glucose Point of Care 179 mg/dl (65-105)
[2023-02-25] MEDS: TOLNAFTATE 1% POWDER 45 GM BTL 1 APPLIC TOPICAL ×2 (09:15→20:26)
[2023-02-25] MEDS: PANTOPRAZOLE 40 MG TABLET PO (09:16)
[2023-02-25] MEDS: THERAPEUTIC MULTIVITAMINS/MINERALS TAB (*BKC) 1 TABLET PO (09:16)
[2023-02-25] MEDS: METOPROLOL TARTRATE 25 MG TABLET PO ×2 (09:16→20:25)
[2023-02-25] MEDS: INSULIN GLARGINE (*BKC) 100 UNITS/ML 20 UNITS SUB-Q (09:16)
[2023-02-25] MEDS: AMIODARONE HCL 200 MG TABLET PO (09:17)
[2023-02-25] MEDS: CLOPIDOGREL BISULFATE 75 MG TABLET PO (09:17)
--- NOTE | 2023-02-25 11:44 | P.PNNP_ITS ---
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/dialysis but renal function seems to be doing better with conservative therapy * on diuretic gtt * will transitioned to scheduled IV diuretics today * however, concerning that he did not respond to these interventions on admission * follow repeat labs and UOP (2) Chronic kidney disease, stage 3b: Code(s): N18.32 - Chronic kidney disease, stage 3b Status: Chronic Assessment and Plan: * baseline creatinine runs ~ 2.0mg/dl * due to HTN, DM, CHF, vascular disease, EILEEN/pulmonary hypertension, and age-related change * however, from his last hospitalization a month ago her, his creatinine was running higher due to diuresis and need for high dose diuretics * this may have led to some CKD progression to CKD stage 4 versus the fact that he needs a higher creatinine to achieve relative euvolemia * follows with Dr. Rodriguez for management of his CKD (3) Acute respiratory failure: Qualifiers: Respiratory failure complication: hypoxia and hypercapnia Qualified Code(s): J96.01 - Acute respiratory failure with hypoxia; J96.02 - Acute respiratory failure with hypercapnia; J96.02 - Acute respiratory failure with hypercapnia Code(s): J96.00 - Acute respiratory failure, unspecified whether with hypoxia or hypercapnia Status: Acute Assessment and Plan: * secondary to pulmonary edema from CHF and advancing CKD * questionable pneumonia * follow culture data - on antibiotics and to complete course tomorrow * NRB/BiPAP for respiratory support; on supplemental oxygen * continue diuresis (4) CHF (congestive heart failure): Code(s): I50.9 - Heart failure, unspecified Status: Acute Assessment and Plan: * acute on chronic (diastolic) * on lasix gtt with good diuresis * almost 8.5L negative since admission * attempt transition to scheduled IV diuretics * recent Echo noted * follow I/Os, respiratory status, and exam * Cardiology following (5) Atrial fibrillation: Qualifiers: Atrial fibrillation type: paroxysmal Qualified Code(s): I48.0 - Paroxysmal atrial fibrillation Code(s): I48.91 - Unspecified atrial fibrillation Status: Acute Assessment and Plan: * continue rate control strategy * on anticoagulation (6) Type 2 diabetes mellitus: Code(s): E11.9 - Type 2 diabetes mellitus without complications Status: Acute Assessment and Plan: * follow accuchecks * on SSI and Lantus per hospitalists Will continue to follow. Subjective Date/time seen: 02/25/23 11:44 Interval history: Follow-up for acute kidney injury on chronic kidney disease and volume/fluid overload. His major complaint continues to be that of a sore throat (as it was yesterday); breathing seems better if not improved in general; oxygen require weaned down to 3L oxygen; continues to tolerated lasix gtt and associated diuresis with relative stability in renal function. Ex
--- NOTE | 2023-02-25 11:44 | PM.PNNEP ---
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/dialysis but renal function seems to be doing better with conservative therapy on diuretic gtt will transitioned to scheduled IV diuretics today however, concerning that he did not respond to these interventions on admission follow repeat labs and UOP (2) Chronic kidney disease, stage 3b: Code(s): N18.32 - Chronic kidney disease, stage 3b Status: Chronic Assessment and Plan: baseline creatinine runs ~ 2.0mg/dl due to HTN, DM, CHF, vascular disease, EILEEN/pulmonary hypertension, and age-related change however, from his last hospitalization a month ago her, his creatinine was running higher due to diuresis and need for high dose diuretics this may have led to some CKD progression to CKD stage 4 versus the fact that he needs a higher creatinine to achieve relative euvolemia follows with Dr. Rodriguez for management of his CKD (3) Acute respiratory failure: Qualifiers: Respiratory failure complication: hypoxia and hypercapnia Qualified Code(s): J96.01 - Acute respiratory failure with hypoxia; J96.02 - Acute respiratory failure with hypercapnia; J96.02 - Acute respiratory failure with hypercapnia Code(s): J96.00 - Acute respiratory failure, unspecified whether with hypoxia or hypercapnia Status: Acute Assessment and Plan: secondary to pulmonary edema from CHF and advancing CKD questionable pneumonia follow culture data - on antibiotics and to complete course tomorrow NRB/BiPAP for respiratory support; on supplemental oxygen continue diuresis (4) CHF (congestive heart failure): Code(s): I50.9 - Heart failure, unspecified Status: Acute Assessment and Plan: acute on chronic (diastolic) on lasix gtt with good diuresis almost 8.5L negative since admission attempt transition to scheduled IV diuretics recent Echo noted follow I/Os, respiratory status, and exam Cardiology following (5) Atrial fibrillation: Qualifiers: Atrial fibrillation type: paroxysmal Qualified Code(s): I48.0 - Paroxysmal atrial fibrillation Code(s): I48.91 - Unspecified atrial fibrillation Status: Acute Assessment and Plan: continue rate control strategy on anticoagulation (6) Type 2 diabetes mellitus: Code(s): E11.9 - Type 2 diabetes mellitus without complications Status: Acute Assessment and Plan: follow accuchecks on SSI and Lantus per hospitalists Will continue to follow. Subjective Date/time seen: 02/25/23 11:44 Interval history: Follow-up for acute kidney injury on chronic kidney disease and volume/fluid overload. His major complaint continues to be that of a sore throat (as it was yesterday); breathing seems better if not improved in general; oxygen require weaned down to 3L oxygen; continues to tolerated lasix gtt and associated diuresis with relative stability in renal function. Exam Narrative: General: elderly male in NAD Heart:IRRR, normal S1 and S2; no rub Lungs: coarse breath sounds and decreased at bases Abdomen: soft, nontender, nondistended, positive bowel sounds Extremities: no cyanosis or clubbing; trace edema Skin: warm and intact Objective Data Vital Signs Vital Signs: Vital Signs Temp Pulse Resp BP Pulse Ox O2 Del Method O2 Flow Rate 02/25/23 11:30 95.6 F L 82 16 114/71 91 Nasal C
[2023-02-25 11:57] LABS: Glucose Point of Care 237 mg/dl (65-105)
[2023-02-25] MEDS: INSULIN ASPART (*BKC) 100 UNITS/ML SUB-Q (12:26)
[2023-02-25 13:36] LABS: INR 1.8; Prothrombin Time 21.7 Seconds (11.1-14.7)
[2023-02-25] MEDS: acetaZOLAMIDE SODIUM FOR INJ 500 MG VIAL 250 MG IV PUSH (14:30)
[2023-02-25] MEDS: WARFARIN (*PBKC) 5 MG TABLET PO (16:42)
[2023-02-25] MEDS: BUMETANIDE INJ 1 MG/4 ML VIAL 2 MG IV PUSH (16:43)
[2023-02-25 16:49] LABS: Glucose Point of Care 182 mg/dl (65-105)
[2023-02-25] MEDS: ONDANSETRON HCL ODT 4 MG TABLET 8 MG PO (18:40)
[2023-02-25] MEDS: MELATONIN 5 MG TABLET PO (20:25)
[2023-02-25 20:37] LABS: Glucose Point of Care 242 mg/dl (65-105)
[2023-02-26] VITALS (12 sets, daily range): BP systolic 102–142; BP diastolic 45–76; PULSE 69–101; RESP 18–22; TEMP 35.7–36.4; O2SAT 91–96
[2023-02-26 04:56] LABS: Basophils Absolute Auto 0.1 K/mm3 (0.0-0.1); Basophils Percent Auto 0.7 % (0.2-1.2); Eosinophils Absolute Auto 0.4 K/mm3 (0-0.3); Hematocrit 36.5 % (42.0-52.0); Hemoglobin 11.3 g/dL (14.0-18.0); Immature Granulocyte Absolute 0.04 K/mm3 (0.00-0.031); Immature Granulocyte Percent A 0.4 % (0-0.5); Lymphocytes Absolute Auto 1.87 K/mm3 (0.9-3.2); Lymphocytes Percent Auto 19.1 % (18.3-44.2); Mean Corpuscular Hemoglobin 29.9 pg (26-34); Mean Corpuscular Volume 96.6 fl (80-100); Mean Platelet Volume 10.9 fl (7.4-10.4); Monocytes Absolute Auto 0.8 K/mm3 (0.1-0.6); Monocytes Percent Auto 8.4 % (2.6-8.5); Neutrophils Absolute Auto 6.6 K/mm3 (1.3-6.7); Neutrophils Percent Auto 67.4 % (45.5-73.1); Platelet Count Result 340 k/mm3 (150-375); Red Blood Count 3.78 M/mm3 (4.6-6.20); Red Cell Distribution Width 15.2 % (11.5-14.5); White Blood Count 9.8 K/mm3 (4.5-10.0)
[2023-02-26 05:10] LABS: Alanine Aminotransferase 21 U/L (6-50); Albumin Level 3.8 g/dL (3.5-5.1); Alkaline Phosphatase 105 U/L (38-126); Anion Gap 9 mmol/L (8-16); Aspartate Amino Transferase 25 U/L (17-59); Bilirubin,Total 0.5 mg/dL (0.2-1.3); Blood Urea Nitrogen 89 mg/dL (9-20); Calcium 9.1 mg/dL (8.4-10.2); Carbon Dioxide 38 mmol/L (22-30); Chloride 94 mmol/L (98-107); Estimated CRCL calculation 23 ml/min; Estimated Glomerular Filt Rate 18; Glucose 171 mg/dL (65-110); Magnesium 2.2 mg/dL (1.6-2.3); Potassium 3.3 mmol/L (3.4-5.0); Sodium 141 mmol/L (137-145)
[2023-02-26 05:15] LABS: INR 1.8; Prothrombin Time 22.4 Seconds (11.1-14.7)
[2023-02-26] MEDS: LEVOTHYROXINE SODIUM 50 MCG TABLET PO (06:17)
[2023-02-26 07:57] LABS: Glucose Point of Care 182 mg/dl (65-105)
[2023-02-26] MEDS: ONDANSETRON HCL ODT 4 MG TABLET 8 MG PO (08:02)
[2023-02-26] MEDS: INSULIN GLARGINE (*BKC) 100 UNITS/ML 20 UNITS SUB-Q (08:05)
--- NOTE | 2023-02-26 09:46 | PM.PNNEP ---
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/dialysis but renal function seems to be doing better with conservative therapy off diuretic gtt on scheduled IV diuretics currently however, concerning that he did not respond to this interventions on admission follow repeat labs and UOP (2) Chronic kidney disease, stage 3b: Code(s): N18.32 - Chronic kidney disease, stage 3b Status: Chronic Assessment and Plan: baseline creatinine runs ~ 2.0mg/dl due to HTN, DM, CHF, vascular disease, EILEEN/pulmonary hypertension, and age-related change however, from his last hospitalization a month ago her, his creatinine was running higher due to diuresis and need for high dose diuretics this may have led to some CKD progression to CKD stage 4 versus the fact that he needs a higher creatinine to achieve relative euvolemia follows with Dr. Rodriguez for management of his CKD (3) Acute respiratory failure: Qualifiers: Respiratory failure complication: hypoxia and hypercapnia Qualified Code(s): J96.01 - Acute respiratory failure with hypoxia; J96.02 - Acute respiratory failure with hypercapnia; J96.02 - Acute respiratory failure with hypercapnia Code(s): J96.00 - Acute respiratory failure, unspecified whether with hypoxia or hypercapnia Status: Acute Assessment and Plan: secondary to pulmonary edema from CHF and advancing CKD questionable pneumonia follow culture data - completed course of antibiotics NRB/BiPAP for respiratory support; on supplemental oxygen continue diuresis (4) CHF (congestive heart failure): Code(s): I50.9 - Heart failure, unspecified Status: Acute Assessment and Plan: acute on chronic (diastolic) on lasix gtt with good diuresis almost 9.5L negative since admission transitioned to scheduled IV diuretics recent Echo noted follow I/Os, respiratory status, and exam Cardiology following (5) Atrial fibrillation: Qualifiers: Atrial fibrillation type: paroxysmal Qualified Code(s): I48.0 - Paroxysmal atrial fibrillation Code(s): I48.91 - Unspecified atrial fibrillation Status: Acute Assessment and Plan: continue rate control strategy on anticoagulation (6) Type 2 diabetes mellitus: Code(s): E11.9 - Type 2 diabetes mellitus without complications Status: Acute Assessment and Plan: follow accuchecks on SSI and Lantus per hospitalists Will continue to follow. Subjective Date/time seen: 02/26/23 09:46 Interval history: Follow-up for acute kidney injury on chronic kidney disease and volume/fluid overload. Weaned off lasix gtt and initiated on scheduled IV bumex; respiratory status seems stable/improved in general as is swelling/edema; laying flat in bed sleeping comfortably before I came to visit; no other issues/events overnight or earlier this AM. Exam Narrative: General: elderly male in NAD Heart:IRRR, normal S1 and S2; no rub Lungs: coarse breath sounds and decreased at bases Abdomen: soft, nontender, nondistended, positive bowel sounds Extremities: no cyanosis or clubbing; trace edema Skin: no rash Objective Data Vital Signs Vital Signs: Vital Signs Temp Pulse Resp BP Pulse Ox O2 Del Method O2 Flow Rate 02/26/23 08:00 90 02/26/23 08:00 94 Room Air 02/26/23 08:01 96.2 F L 79 20 102/45 L 94
--- NOTE | 2023-02-26 09:46 | P.PNNP_ITS ---
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 but renal function seems to be doing better with conservative therapy * off diuretic gtt * on scheduled IV diuretics currently * however, concerning that he did not respond to this interventions on admission * follow repeat labs and UOP (2) Chronic kidney disease, stage 3b: Code(s): N18.32 - Chronic kidney disease, stage 3b Status: Chronic Assessment and Plan: * baseline creatinine runs ~ 2.0mg/dl * due to HTN, DM, CHF, vascular disease, EILEEN/pulmonary hypertension, and age- related change * however, from his last hospitalization a month ago her, his creatinine was running higher due to diuresis and need for high dose diuretics * this may have led to some CKD progression to CKD stage 4 versus the fact that he needs a higher creatinine to achieve relative euvolemia * follows with Dr. Rodriguez for management of his CKD (3) Acute respiratory failure: Qualifiers: Respiratory failure complication: hypoxia and hypercapnia Qualified Code(s): J96.01 - Acute respiratory failure with hypoxia; J96.02 - Acute respiratory failure with hypercapnia; J96.02 - Acute respiratory failure with hypercapnia Code(s): J96.00 - Acute respiratory failure, unspecified whether with hypoxia or hypercapnia Status: Acute Assessment and Plan: * secondary to pulmonary edema from CHF and advancing CKD * questionable pneumonia * follow culture data - completed course of antibiotics * NRB/BiPAP for respiratory support; on supplemental oxygen * continue diuresis (4) CHF (congestive heart failure): Code(s): I50.9 - Heart failure, unspecified Status: Acute Assessment and Plan: * acute on chronic (diastolic) * on lasix gtt with good diuresis * almost 9.5L negative since admission * transitioned to scheduled IV diuretics * recent Echo noted * follow I/Os, respiratory status, and exam * Cardiology following (5) Atrial fibrillation: Qualifiers: Atrial fibrillation type: paroxysmal Qualified Code(s): I48.0 - Paroxysmal atrial fibrillation Code(s): I48.91 - Unspecified atrial fibrillation Status: Acute Assessment and Plan: * continue rate control strategy * on anticoagulation (6) Type 2 diabetes mellitus: Code(s): E11.9 - Type 2 diabetes mellitus without complications Status: Acute Assessment and Plan: * follow accuchecks * on SSI and Lantus per hospitalists Will continue to follow. Subjective Date/time seen: 02/26/23 09:46 Interval history: Follow-up for acute kidney injury on chronic kidney disease and volume/fluid overload. Weaned off lasix gtt and initiated on scheduled IV bumex; respiratory status seems stable/improved in general as is swelling/edema; laying flat in bed sleeping comfortably before I came to visit; no other issues/events overnight or earlier this AM. Exam Narrative: General:
[2023-02-26] MEDS: BUMETANIDE INJ 1 MG/4 ML VIAL 2 MG IV PUSH ×2 (10:04→16:34)
[2023-02-26] MEDS: TOLNAFTATE 1% POWDER 45 GM BTL 1 APPLIC TOPICAL ×2 (10:04→20:59)
[2023-02-26 12:01] LABS: Glucose Point of Care 225 mg/dl (65-105)
[2023-02-26] MEDS: AMIODARONE HCL 200 MG TABLET PO (12:31)
[2023-02-26] MEDS: CLOPIDOGREL BISULFATE 75 MG TABLET PO (12:32)
[2023-02-26] MEDS: POTASSIUM CHLORIDE 20 MEQ TABLET PO (12:32)
[2023-02-26] MEDS: INSULIN ASPART (*BKC) 100 UNITS/ML SUB-Q (12:33)
[2023-02-26] MEDS: MIDODRINE HCL 10 MG TABLET PO ×2 (12:33→16:35)
[2023-02-26] MEDS: THERAPEUTIC MULTIVITAMINS/MINERALS TAB (*BKC) 1 TABLET PO (12:33)
[2023-02-26] MEDS: METOPROLOL TARTRATE 25 MG TABLET PO ×2 (12:33→20:59)
[2023-02-26] MEDS: PANTOPRAZOLE 40 MG TABLET PO (12:33)
[2023-02-26] MEDS: POTASSIUM CHLORIDE 20 MEQ TABLET 40 MEQ PO (12:41)
--- NOTE | 2023-02-26 16:02 | PM.IMPN ---
Progress Note: A&P Assessment and Plan (1) Acute respiratory failure: Qualifiers: Respiratory failure complication: hypoxia and hypercapnia Qualified Code(s): J96.01 - Acute respiratory failure with hypoxia; J96.02 - Acute respiratory failure with hypercapnia; J96.02 - Acute respiratory failure with hypercapnia Code(s): J96.00 - Acute respiratory failure, unspecified whether with hypoxia or hypercapnia Status: Acute Assessment and Plan: Acute respiratory failure likely secondary to pulmonary edema secondary to congestive heart failure and chronic kidney disease leading to volume overload -Pneumonia unlikely possibility as patient is afebrile, normal WBC and low procalcitonin level -02/17: Blood cultures -preliminary results with no growth -continue cefepime total of 5 days (started on 02/18) -patient was poorly responsive to IV Lasix so on 02/18 he was started on Lasix infusion with improvement in his urine output and negative fluid balance Patient remains on high-flow nasal cannula and BiPAP at night. P.r.n. BiPAP and during daytime. Chest x-ray with moderate pulmonary edema. Continue on IV Lasix as tolerated. Discussed with Nephrology 02/24/2023 Switched to IV Bumex (2) CHF (congestive heart failure): Qualifiers: Heart failure chronicity: unspecified Heart failure type: unspecified Qualified Code(s): I50.9 - Heart failure, unspecified Code(s): I50.9 - Heart failure, unspecified Status: Acute Assessment and Plan: Echo Summary ? 1. Complete two-dimensional, color flow and Doppler transthoracic echocardiogram is performed. ? 2. Left ventricular chamber dimension is normal. ? 3. Left ventricular systolic function is normal, estimated at 55-60%. ? 4. There is mildly increased left ventricular wall thickness. ? 5. Global longitudinal strain is abnormal at -12 %. ? 6. Right ventricular systolic function is normal. ? 7. Left atrial chamber dimension is moderately enlarged. ? 8. Right atrial chamber dimension is mildly enlarged. ? 9. There is moderate aortic valve calcification. ? 10. There is mild aortic valve stenosis with a peak velocity of 245 cm/s, mean gradient of 12 mmHg, and aortic valve area of 1.9 cm2. ? 11. The mitral valve annulus is mildly calcified. ? 12. There is mild mitral valve regurgitation. ? 13. There is mild tricuspid valve regurgitation. ? 14. Pulmonary hypertension with estimated PASP of 52mmHg. Cardiology following Lasix infusion for volume overload 02/20: Discussed with Nephrology and Cardiology, will start midodrine for adequate blood pressure support and increase renal perfusion continue diuresis with Lasix drip. Monitor renal function nephrology on board Switched to IV Bumex diuresing well on that (3) Chronic kidney disease: Code(s): N18.9 - Chronic kidney disease, unspecified Status: Acute Assessment and Plan: Patient has chronic kidney disease and baseline creatinine is close to 2.0 Electrolytes have been acceptable tele but patient has volume overload Patient has been poorly responsive to IV bolus Lasix so was started on Lasix infusion on 02/18/2023 with good urine output, negative fluid balance, improvement in creatinine Appreciate nephrology following the patient Acceptable electrolytes and acid-base status at this time Remains negative (4) Pneumonia: Qualifiers: Laterality: unspecified laterality Lung location: unspecified part of lung Pneumonia type: due to unspecified organism Qualified Code(s): J18.9 - Pneumonia, unspecified organism Code(s): J18.9 - Pneumonia, unspecified organism Status: Acute Assessment and Plan: See above (5) Type 2 diabetes mellitus: Code(s): E11.9 - Type 2 diabetes mellitus without complications Status: Acute Assessment and Plan: SSI and Lantus (6) Atrial fibrillation: Qualifiers: Atrial fibrillation type: paroxysmal Qualifi
[2023-02-26 16:32] LABS: Glucose Point of Care 184 mg/dl (65-105)
[2023-02-26] MEDS: WARFARIN (*PBKC) 5 MG TABLET PO (16:36)
--- NOTE | 2023-02-26 18:15 | PC.NURSE ---
This patient, Nigel Wang, was transferred to [facility] on 02/26/23 at 1750. Personal belongings sent with patient. Report given to JACQUIE Hermosillo. Appropriate documentation sent with patient.
[2023-02-26] MEDS: MELATONIN 5 MG TABLET PO (20:59)
[2023-02-26] MEDS: PHENOL/SOD PHENO SPRAY CHERRY (*BKC) 1 SPRAY MUCOUS MEM (21:02)
[2023-02-26 23:28] LABS: Glucose Point of Care 178 mg/dl (65-105)
[2023-02-27] VITALS (11 sets, daily range): BP systolic 93–136; BP diastolic 60–75; PULSE 65–78; RESP 14–20; TEMP 35.9–36.3; O2SAT 90–98
[2023-02-27] MEDS: LEVOTHYROXINE SODIUM 50 MCG TABLET PO (05:05)
[2023-02-27 06:41] LABS: Basophils Absolute Auto 0.1 K/mm3 (0.0-0.1); Basophils Percent Auto 0.8 % (0.2-1.2); Eosinophils Absolute Auto 0.5 K/mm3 (0-0.3); Eosinophils Percent Auto 4.4 % (0-4.4); Hematocrit 37.6 % (42.0-52.0); Hemoglobin 11.6 g/dL (14.0-18.0); Immature Granulocyte Absolute 0.05 K/mm3 (0.00-0.031); Immature Granulocyte Percent A 0.5 % (0-0.5); Lymphocytes Absolute Auto 1.91 K/mm3 (0.9-3.2); Mean Corpuscular HGB Conc 30.9 g/dl (32-36); Mean Corpuscular Hemoglobin 29.6 pg (26-34); Mean Corpuscular Volume 95.9 fl (80-100); Mean Platelet Volume 10.7 fl (7.4-10.4); Monocytes Absolute Auto 0.9 K/mm3 (0.1-0.6); Monocytes Percent Auto 8.6 % (2.6-8.5); Neutrophils Absolute Auto 7.2 K/mm3 (1.3-6.7); Neutrophils Percent Auto 67.7 % (45.5-73.1); Platelet Count Result 354 k/mm3 (150-375); Red Blood Count 3.92 M/mm3 (4.6-6.20); Red Cell Distribution Width 15.2 % (11.5-14.5); White Blood Count 10.6 K/mm3 (4.5-10.0)
[2023-02-27 06:51] LABS: INR 1.9; Prothrombin Time 22.8 Seconds (11.1-14.7)
[2023-02-27 06:54] LABS: Alanine Aminotransferase 23 U/L (6-50); Albumin Level 3.8 g/dL (3.5-5.1); Alkaline Phosphatase 107 U/L (38-126); Anion Gap 9 mmol/L (8-16); Aspartate Amino Transferase 27 U/L (17-59); Bilirubin,Total 0.6 mg/dL (0.2-1.3); Blood Urea Nitrogen 86 mg/dL (9-20); Carbon Dioxide 37 mmol/L (22-30); Chloride 95 mmol/L (98-107); Estimated CRCL calculation 21 ml/min; Estimated Glomerular Filt Rate 18; Glucose 165 mg/dL (65-110); Magnesium 2.3 mg/dL (1.6-2.3); Potassium 3.6 mmol/L (3.4-5.0); Sodium 141 mmol/L (137-145)
[2023-02-27 07:43] LABS: Glucose Point of Care 171 mg/dl (65-105)
[2023-02-27] MEDS: AMIODARONE HCL 200 MG TABLET PO (08:34)
[2023-02-27] MEDS: PANTOPRAZOLE 40 MG TABLET PO (08:35)
[2023-02-27] MEDS: CLOPIDOGREL BISULFATE 75 MG TABLET PO (08:35)
[2023-02-27] MEDS: METOPROLOL TARTRATE 25 MG TABLET PO ×2 (08:35→21:30)
[2023-02-27] MEDS: THERAPEUTIC MULTIVITAMINS/MINERALS TAB (*BKC) 1 TABLET PO (08:35)
[2023-02-27] MEDS: MIDODRINE HCL 10 MG TABLET PO ×2 (08:35→17:00)
[2023-02-27] MEDS: TOLNAFTATE 1% POWDER 45 GM BTL 1 APPLIC TOPICAL ×2 (08:36→21:31)
[2023-02-27] MEDS: BUMETANIDE INJ 1 MG/4 ML VIAL 2 MG IV PUSH ×2 (08:40→17:00)
[2023-02-27] MEDS: INSULIN GLARGINE (*BKC) 100 UNITS/ML 20 UNITS SUB-Q (08:41)
--- NOTE | 2023-02-27 10:58 | PCOTNOTE ---
Attempted OT evaluation, patient initially agreed to participate in OT, after setting up chair patient declined getting out of bed due to not feeling well and nausea . RN present and aware. Will follow.
[2023-02-27] MEDS: ONDANSETRON HCL ODT 4 MG TABLET 8 MG PO (11:10)
[2023-02-27 11:19] LABS: Glucose Point of Care 202 mg/dl (65-105)
--- NOTE | 2023-02-27 12:06 | P.PNNP_ITS ---
Progress Note: A&P Assessment and Plan (1) JOSE F (acute kidney injury): Code(s): N17.9 - Acute kidney failure, unspecified Status: Acute Assessment and Plan: * creatinine fluctuating -- suspect new baseline * acute versus progression of disease (see #2) * acute CHF and necessity of high dose diuretics likely playing a role as well * perhaps a component of renal hypoperfusion/soft BPs contributing but better hemodynamics noted at this time * on midodrine at this time * renal ultrasound (done a month ago) with any acute issue/problems * still remains at risk for needing/requiring MARINE STEWARD/dialysis but renal function s eems to be doing better with conservative therapy * off diuretic gtt * on scheduled IV diuretics currently * follow repeat labs and UOP (2) Chronic kidney disease, stage 3b: Code(s): N18.32 - Chronic kidney disease, stage 3b Status: Chronic Assessment and Plan: * baseline creatinine runs ~ 2.0mg/dl * due to HTN, DM, CHF, vascular disease, EILEEN/pulmonary hypertension, and age- related change * however, from his last hospitalization a month ago her, his creatinine was running higher due to diuresis and need for high dose diuretics * this may have led to some CKD progression to CKD stage 4 versus the fact that he needs a higher creatinine to achieve relative euvolemia * remains at risk for MARINE STEWARD/dialysis in the future * follows with Dr. Rodriguez for management of his CKD (3) Acute respiratory failure: Qualifiers: Respiratory failure complication: hypoxia and hypercapnia Qualified Code(s): J96.01 - Acute respiratory failure with hypoxia; J96.02 - Acute respiratory failure with hypercapnia; J96.02 - Acute respiratory failure with hypercapnia Code(s): J96.00 - Acute respiratory failure, unspecified whether with hypoxia or hypercapnia Status: Acute Assessment and Plan: * secondary to pulmonary edema from CHF and advancing CKD * questionable pneumonia * follow culture data - completed course of antibiotics * NRB/BiPAP for respiratory support; on supplemental oxygen * continue diuresis (4) CHF (congestive heart failure): Code(s): I50.9 - Heart failure, unspecified Status: Acute Assessment and Plan: * acute on chronic (diastolic) * on lasix gtt with good diuresis * almost 9.5L negative since admission * transitioned to scheduled IV diuretics * recent Echo noted * follow I/Os, respiratory status, and exam * Cardiology following (5) Atrial fibrillation: Qualifiers: Atrial fibrillation type: paroxysmal Qualified Code(s): I48.0 - Paroxysmal atrial fibrillation Code(s): I48.91 - Unspecified atrial fibrillation Status: Acute Assessment and Plan: * continue rate control strategy * on anticoagulation (6) Type 2 diabetes mellitus: Code(s): E11.9 - Type 2 diabetes mellitus without complications Status: Acute Assessment and Plan: * follow accuchecks * on SSI and Lantus per hospitalists Will continue to follow. Subjective Date/time seen: 02/27/23 12:06 Interval history: Follow-up for acute kidney injury on chronic kidney disease and volume/fluid overload. Reasonable urine output with current diuretic therapy and renal function remains relatively stable; reports some issues with nausea and abdominal distension today; breathing appears to be doing okay per patient. Exam Narrative: General: elderly male in NAD Heart:IRRR, normal S
--- NOTE | 2023-02-27 12:06 | PM.PNNEP ---
Progress Note: A&P Assessment and Plan (1) JOSE F (acute kidney injury): Code(s): N17.9 - Acute kidney failure, unspecified Status: Acute Assessment and Plan: creatinine fluctuating -- suspect new baseline acute versus progression of disease (see #2) acute CHF and necessity of high dose diuretics likely playing a role as well perhaps a component of renal hypoperfusion/soft BPs contributing but better hemodynamics noted at this time on midodrine at this time renal ultrasound (done a month ago) with any acute issue/problems still remains at risk for needing/requiring PEWTER FINISHER/dialysis but renal function seems to be doing better with conservative therapy off diuretic gtt on scheduled IV diuretics currently follow repeat labs and UOP (2) Chronic kidney disease, stage 3b: Code(s): N18.32 - Chronic kidney disease, stage 3b Status: Chronic Assessment and Plan: baseline creatinine runs ~ 2.0mg/dl due to HTN, DM, CHF, vascular disease, EILEEN/pulmonary hypertension, and age-related change however, from his last hospitalization a month ago her, his creatinine was running higher due to diuresis and need for high dose diuretics this may have led to some CKD progression to CKD stage 4 versus the fact that he needs a higher creatinine to achieve relative euvolemia remains at risk for PEWTER FINISHER/dialysis in the future follows with Dr. Rodriguez for management of his CKD (3) Acute respiratory failure: Qualifiers: Respiratory failure complication: hypoxia and hypercapnia Qualified Code(s): J96.01 - Acute respiratory failure with hypoxia; J96.02 - Acute respiratory failure with hypercapnia; J96.02 - Acute respiratory failure with hypercapnia Code(s): J96.00 - Acute respiratory failure, unspecified whether with hypoxia or hypercapnia Status: Acute Assessment and Plan: secondary to pulmonary edema from CHF and advancing CKD questionable pneumonia follow culture data - completed course of antibiotics NRB/BiPAP for respiratory support; on supplemental oxygen continue diuresis (4) CHF (congestive heart failure): Code(s): I50.9 - Heart failure, unspecified Status: Acute Assessment and Plan: acute on chronic (diastolic) on lasix gtt with good diuresis almost 9.5L negative since admission transitioned to scheduled IV diuretics recent Echo noted follow I/Os, respiratory status, and exam Cardiology following (5) Atrial fibrillation: Qualifiers: Atrial fibrillation type: paroxysmal Qualified Code(s): I48.0 - Paroxysmal atrial fibrillation Code(s): I48.91 - Unspecified atrial fibrillation Status: Acute Assessment and Plan: continue rate control strategy on anticoagulation (6) Type 2 diabetes mellitus: Code(s): E11.9 - Type 2 diabetes mellitus without complications Status: Acute Assessment and Plan: follow accuchecks on SSI and Lantus per hospitalists Will continue to follow. Subjective Date/time seen: 02/27/23 12:06 Interval history: Follow-up for acute kidney injury on chronic kidney disease and volume/fluid overload. Reasonable urine output with current diuretic therapy and renal function remains relatively stable; reports some issues with nausea and abdominal distension today; breathing appears to be doing okay per patient. Exam Narrative: General: elderly male in NAD Heart:IRRR, normal S1 and S2; no rub Lungs: coarse breath sounds and decreased at bases Abdomen: soft, nontender, nondistended, positive bowel sounds Extremities: no cyanosis or clubbing; trace edema Skin: no nodules Objective Data Vital Signs Vital Signs: Vital Signs Temp Pulse Resp BP Pulse Ox O2 Del Method FiO2 02/27/23 12:00 97.4 F L 70 20 120/68 94 02/27/23 08:00 Room Air 02/27/23 08:49 97.0 F L 77 20 93/75 L 90 02/27/23 08:44 125/75 05
[2023-02-27] MEDS: INSULIN ASPART (*BKC) 100 UNITS/ML SUB-Q ×2 (12:36→16:56)
--- NOTE | 2023-02-27 14:48 | P.PNIM_ITS ---
Progress Note: A&P Assessment and Plan (1) Acute respiratory failure: Qualifiers: Respiratory failure complication: hypoxia and hypercapnia Qualified Code(s): J96.01 - Acute respiratory failure with hypoxia; J96.02 - Acute respiratory failure with hypercapnia; J96.02 - Acute respiratory failure with hypercapnia Code(s): J96.00 - Acute respiratory failure, unspecified whether with hypoxia or hypercapnia Status: Acute Assessment and Plan: Acute respiratory failure likely secondary to pulmonary edema secondary to congestive heart failure and chronic kidney disease leading to volume overload -Pneumonia unlikely possibility as patient is afebrile, normal WBC and low procalcitonin level -02/17: Blood cultures -preliminary results with no growth -continue cefepime total of 5 days (started on 02/18) -patient was poorly responsive to IV Lasix so on 02/18 he was started on Lasix infusion with improvement in his urine output and negative fluid balance Patient remains on high-flow nasal cannula and BiPAP at night. P.r.n. BiPAP and during daytime. Chest x-ray with moderate pulmonary edema. Continue on IV Lasix as tolerated. Discussed with Nephrology 02/24/2023 Switched to IV Bumex. Monitor renal function with diuresis. (2) CHF (congestive heart failure): Qualifiers: Heart failure chronicity: unspecified Heart failure type: unspecified Qualified Code(s): I50.9 - Heart failure, unspecified Code(s): I50.9 - Heart failure, unspecified Status: Acute Assessment and Plan: Echo Summary ? 1. Complete two-dimensional, color flow and Doppler transthoracic echocardiogram is performed. ? 2. Left ventricular chamber dimension is normal. ? 3. Left ventricular systolic function is normal, estimated at 55-60%. ? 4. There is mildly increased left ventricular wall thickness. ? 5. Global longitudinal strain is abnormal at -12 %. ? 6. Right ventricular systolic function is normal. ? 7. Left atrial chamber dimension is moderately enlarged. ? 8. Right atrial chamber dimension is mildly enlarged. ? 9. There is moderate aortic valve calcification. ? 10. There is mild aortic valve stenosis with a peak velocity of 245 cm/s, mean gradient of 12 mmHg, and aortic valve area of 1.9 cm2. ? 11. The mitral valve annulus is mildly calcified. ? 12. There is mild mitral valve regurgitation. ? 13. There is mild tricuspid valve regurgitation. ? 14. Pulmonary hypertension with estimated PASP of 52mmHg. Cardiology following Lasix infusion for volume overload 02/20: Discussed with Nephrology and Cardiology, will start midodrine for adequate blood pressure support and increase renal perfusion continue diuresis with Lasix drip. Monitor renal function nephrology on board Switched to IV Bumex diuresing well on that (3) Chronic kidney disease: Code(s): N18.9 - Chronic kidney disease, unspecified Status: Acute Assessment and Plan: Patient has chronic kidney disease and baseline creatinine is close to 2.0 Electrolytes have been acceptable tele but patient has volume overload Patient has been poorly responsive to IV bolus Lasix so was started on Lasix infusion on 02/18/2023 with good urine output, negative fluid balance, improvement in creatinine Appreciate nephrology following the patient Acceptable electrolytes and acid-base status at this time Remains negative (4) Pneumonia: Qualifiers: Laterality: unspecified laterality Lung location: unspecified part of lung Pneumonia type: due to unspecified organism Qualified Code(s): J18.9 - Pneumonia, unspecified organism Code(s): J18.9 -
[2023-02-27 16:18] LABS: Glucose Point of Care 216 mg/dl (65-105)
[2023-02-27] MEDS: WARFARIN (*PBKC) 5 MG TABLET PO (17:00)
[2023-02-27] MEDS: MELATONIN 5 MG TABLET PO (21:30)
[2023-02-28] VITALS (8 sets, daily range): BP systolic 108–152; BP diastolic 65–78; PULSE 63–78; RESP 18–24; TEMP 35.5–36.4; O2SAT 93–97
[2023-02-28 04:11] LABS: Glucose Point of Care 224 mg/dl (65-105)
[2023-02-28] MEDS: LEVOTHYROXINE SODIUM 50 MCG TABLET PO (05:30)
[2023-02-28 07:32] LABS: Basophils Absolute Auto 0.1 K/mm3 (0.0-0.1); Basophils Percent Auto 0.5 % (0.2-1.2); Eosinophils Absolute Auto 0.4 K/mm3 (0-0.3); Eosinophils Percent Auto 3.2 % (0-4.4); Hemoglobin 12.6 g/dL (14.0-18.0); Immature Granulocyte Absolute 0.07 K/mm3 (0.00-0.031); Immature Granulocyte Percent A 0.6 % (0-0.5); Lymphocytes Absolute Auto 1.78 K/mm3 (0.9-3.2); Lymphocytes Percent Auto 14.8 % (18.3-44.2); Mean Corpuscular HGB Conc 30.7 g/dl (32-36); Mean Corpuscular Hemoglobin 29.5 pg (26-34); Mean Platelet Volume 10.8 fl (7.4-10.4); Monocytes Absolute Auto 0.9 K/mm3 (0.1-0.6); Monocytes Percent Auto 7.3 % (2.6-8.5); Neutrophils Absolute Auto 8.9 K/mm3 (1.3-6.7); Neutrophils Percent Auto 73.6 % (45.5-73.1); Platelet Count Result 378 k/mm3 (150-375); Red Blood Count 4.27 M/mm3 (4.6-6.20); Red Cell Distribution Width 15.3 % (11.5-14.5)
[2023-02-28 07:55] LABS: Alanine Aminotransferase 23 U/L (6-50); Albumin Level 3.9 g/dL (3.5-5.1); Alkaline Phosphatase 114 U/L (38-126); Anion Gap 8 mmol/L (8-16); Aspartate Amino Transferase 33 U/L (17-59); Bilirubin,Total 0.6 mg/dL (0.2-1.3); Blood Urea Nitrogen 84 mg/dL (9-20); Carbon Dioxide 34 mmol/L (22-30); Chloride 95 mmol/L (98-107); Estimated CRCL calculation 21 ml/min; Estimated Glomerular Filt Rate 18; Glucose 179 mg/dL (65-110); Magnesium 2.4 mg/dL (1.6-2.3); Potassium 3.2 mmol/L (3.4-5.0); Sodium 137 mmol/L (137-145)
[2023-02-28 08:05] LABS: Glucose Point of Care 181 mg/dl (65-105)
[2023-02-28 08:37] LABS: Prothrombin Time 23.8 Seconds (11.1-14.7)
[2023-02-28] MEDS: AMIODARONE HCL 200 MG TABLET PO (09:10)
[2023-02-28] MEDS: CLOPIDOGREL BISULFATE 75 MG TABLET PO (09:10)
[2023-02-28] MEDS: MIDODRINE HCL 10 MG TABLET PO ×3 (09:10→17:59)
[2023-02-28] MEDS: BUMETANIDE INJ 1 MG/4 ML VIAL 2 MG IV PUSH ×2 (09:11→17:59)
[2023-02-28] MEDS: PANTOPRAZOLE 40 MG TABLET PO (09:11)
[2023-02-28] MEDS: METOPROLOL TARTRATE 25 MG TABLET PO ×2 (09:11→20:38)
[2023-02-28] MEDS: THERAPEUTIC MULTIVITAMINS/MINERALS TAB (*BKC) 1 TABLET PO (09:11)
[2023-02-28] MEDS: INSULIN GLARGINE (*BKC) 100 UNITS/ML 20 UNITS SUB-Q (09:13)
[2023-02-28] MEDS: TOLNAFTATE 1% POWDER 45 GM BTL 1 APPLIC TOPICAL ×2 (09:14→20:38)
[2023-02-28] MEDS: ONDANSETRON HCL ODT 4 MG TABLET 8 MG PO (09:15)
--- NOTE | 2023-02-28 09:41 | PCOTNOTE ---
Attempted to see for OT evaluation [id number]. Patient reporting nausea and not feeling well. He reports he would like to try later this afternoon. Will continue to attempt.
[2023-02-28 11:52] LABS: Glucose Point of Care 228 mg/dl (65-105)
[2023-02-28] MEDS: INSULIN ASPART (*BKC) 100 UNITS/ML SUB-Q ×2 (12:20→17:59)
--- NOTE | 2023-02-28 12:28 | PM.IMPN ---
Progress Note: A&P Assessment and Plan (1) Acute respiratory failure: Qualifiers: Respiratory failure complication: hypoxia and hypercapnia Qualified Code(s): J96.01 - Acute respiratory failure with hypoxia; J96.02 - Acute respiratory failure with hypercapnia; J96.02 - Acute respiratory failure with hypercapnia Code(s): J96.00 - Acute respiratory failure, unspecified whether with hypoxia or hypercapnia Status: Acute Assessment and Plan: Acute respiratory failure likely secondary to pulmonary edema secondary to congestive heart failure and chronic kidney disease leading to volume overload Switched to IV Bumex. Monitor renal function with diuresis. (2) CHF (congestive heart failure): Qualifiers: Heart failure chronicity: unspecified Heart failure type: unspecified Qualified Code(s): I50.9 - Heart failure, unspecified Code(s): I50.9 - Heart failure, unspecified Status: Acute Assessment and Plan: Echo Summary ? 1. Complete two-dimensional, color flow and Doppler transthoracic echocardiogram is performed. ? 2. Left ventricular chamber dimension is normal. ? 3. Left ventricular systolic function is normal, estimated at 55-60%. ? 4. There is mildly increased left ventricular wall thickness. ? 5. Global longitudinal strain is abnormal at -12 %. ? 6. Right ventricular systolic function is normal. ? 7. Left atrial chamber dimension is moderately enlarged. ? 8. Right atrial chamber dimension is mildly enlarged. ? 9. There is moderate aortic valve calcification. ? 10. There is mild aortic valve stenosis with a peak velocity of 245 cm/s, mean gradient of 12 mmHg, and aortic valve area of 1.9 cm2. ? 11. The mitral valve annulus is mildly calcified. ? 12. There is mild mitral valve regurgitation. ? 13. There is mild tricuspid valve regurgitation. ? 14. Pulmonary hypertension with estimated PASP of 52mmHg. Cardiology following Switched to IV Bumex. diuresing well on that (3) Chronic kidney disease: Code(s): N18.9 - Chronic kidney disease, unspecified Status: Acute Assessment and Plan: Appreciate nephrology following the patient Acceptable electrolytes and acid-base status at this time (4) Type 2 diabetes mellitus: Code(s): E11.9 - Type 2 diabetes mellitus without complications Status: Acute Assessment and Plan: SSI and Lantus (5) Atrial fibrillation: Qualifiers: Atrial fibrillation type: paroxysmal Qualified Code(s): I48.0 - Paroxysmal atrial fibrillation Code(s): I48.91 - Unspecified atrial fibrillation Status: Acute Assessment and Plan: Continue p.o. amiodarone and Coumadin (6) Chronic anticoagulation: Code(s): Z79.01 - long-term (current) use of anticoagulants Status: Acute Assessment and Plan: Continue Coumadin Subjective Date/time seen: 02/28/23 12:28 Interval history: Patient complains of some nausea Review of Systems Review of Systems: All systems reviewed & are unremarkable except as noted in HPI and below (HPI) Exam Narrative: General: Pt is alert awake in no distress Lungs/Chest: Trachea central, coarse bilateral breath sounds, no significant respiratory distress or tachypnea Cardiac: Irregularly irregular. Rate controlled, No murmurs Circulation: Pedal pulses are intact and symmetrical. Abdomen: Normal bowel sounds. Soft. NT. ND. Extremities: No clubbing, cyanosis. Warm. Bilateral Trace edema improved : Souza in place Neurologic: Follows commands. Moves all 4 extremities PERRL AO x3, tenderness to the cervical spine Skin: No Rash Objective Data Vital Signs Vital Signs: Vital Signs - 24 hr 02/27/23 16:00 02/27/23 21:30 02/27/23 20:00 Temperature 97.0 F L Pulse Rate 65 78 78 Respiratory Rate 20 20 Blood Pressure 122/68 Pulse Oximetry 98 98 Oxygen Delivery Room Air Fraction of Inspired Oxygen 4 02/27/23 20:23 02/28/23 00:
--- NOTE | 2023-02-28 14:31 | P.PNNP_ITS ---
Progress Note: A&P Assessment and Plan (1) JOSE F (acute kidney injury): Code(s): N17.9 - Acute kidney failure, unspecified Status: Acute Assessment and Plan: * creatinine fluctuating -- suspect a new baseline * acute versus progression of disease (see #2) * acute CHF and necessity of high dose diuretics likely playing a role as well * perhaps a component of renal hypoperfusion/soft BPs contributing but better hemodynamics noted at this time * on midodrine at this time * renal ultrasound (done a month ago) with any acute issue/problems * still remains at risk for needing/requiring TRAVELING REPRESENTATIVE/dialysis but renal function seems to be doing better with conservative therapy * off diuretic gtt * on scheduled IV diuretics currently * possible transition to oral diuretics tomorrow * follow repeat labs and UOP (2) Chronic kidney disease, stage 3b: Code(s): N18.32 - Chronic kidney disease, stage 3b Status: Chronic Assessment and Plan: * baseline creatinine runs ~ 2.0mg/dl * due to HTN, DM, CHF, vascular disease, EILEEN/pulmonary hypertension, and age- related change * however, from his last hospitalization a month ago her, his creatinine was running higher due to diuresis and need for high dose diuretics * this may have led to some CKD progression to CKD stage 4 versus the fact that he needs a higher creatinine to achieve relative euvolemia * remains at risk for TRAVELING REPRESENTATIVE/dialysis in the future * follows with Dr. Rodriguez for management of his CKD (3) Acute respiratory failure: Qualifiers: Respiratory failure complication: hypoxia and hypercapnia Qualified Code(s): J96.01 - Acute respiratory failure with hypoxia; J96.02 - Acute respiratory failure with hypercapnia; J96.02 - Acute respiratory failure with hypercapnia Code(s): J96.00 - Acute respiratory failure, unspecified whether with hypoxia or hy percapnia Status: Acute Assessment and Plan: * secondary to pulmonary edema from CHF and advancing CKD * questionable pneumonia * follow culture data - completed course of antibiotics * NRB/BiPAP for respiratory support; on supplemental oxygen * continue diuresis (4) CHF (congestive heart failure): Code(s): I50.9 - Heart failure, unspecified Status: Acute Assessment and Plan: * acute on chronic (diastolic) * on lasix gtt with good diuresis * almost 11L negative since admission * transitioned to scheduled IV diuretics * recent Echo noted * follow I/Os, respiratory status, and exam * Cardiology following (5) Atrial fibrillation: Qualifiers: Atrial fibrillation type: paroxysmal Qualified Code(s): I48.0 - Paroxysmal atrial fibrillation Code(s): I48.91 - Unspecified atrial fibrillation Status: Acute Assessment and Plan: * continue rate control strategy * on anticoagulation (6) Type 2 diabetes mellitus: Code(s): E11.9 - Type 2 diabetes mellitus without complications Status: Acute Assessment and Plan: * follow accuchecks * on SSI and Lantus per hospitalists Will continue to follow. Subjective Date/time seen: 02/28/23 14:31 Interval history: Follow-up for acute kidney injury on chronic kidney disease and volume/fluid overload. Breathing/respiratory status seems to be doing relatively well; swelling/edema have improved as well; creatinine elevated but relatively stable in the last few days; no acute distress noted; only other complaint is some mild nausea and diarrhea. Exam
--- NOTE | 2023-02-28 14:31 | PM.PNNEP ---
Progress Note: A&P Assessment and Plan (1) JOSE F (acute kidney injury): Code(s): N17.9 - Acute kidney failure, unspecified Status: Acute Assessment and Plan: creatinine fluctuating -- suspect a new baseline acute versus progression of disease (see #2) acute CHF and necessity of high dose diuretics likely playing a role as well perhaps a component of renal hypoperfusion/soft BPs contributing but better hemodynamics noted at this time on midodrine at this time renal ultrasound (done a month ago) with any acute issue/problems still remains at risk for needing/requiring RN CIRCULATING/dialysis but renal function seems to be doing better with conservative therapy off diuretic gtt on scheduled IV diuretics currently possible transition to oral diuretics tomorrow follow repeat labs and UOP (2) Chronic kidney disease, stage 3b: Code(s): N18.32 - Chronic kidney disease, stage 3b Status: Chronic Assessment and Plan: baseline creatinine runs ~ 2.0mg/dl due to HTN, DM, CHF, vascular disease, EILEEN/pulmonary hypertension, and age-related change however, from his last hospitalization a month ago her, his creatinine was running higher due to diuresis and need for high dose diuretics this may have led to some CKD progression to CKD stage 4 versus the fact that he needs a higher creatinine to achieve relative euvolemia remains at risk for RN CIRCULATING/dialysis in the future follows with Dr. Rodriguez for management of his CKD (3) Acute respiratory failure: Qualifiers: Respiratory failure complication: hypoxia and hypercapnia Qualified Code(s): J96.01 - Acute respiratory failure with hypoxia; J96.02 - Acute respiratory failure with hypercapnia; J96.02 - Acute respiratory failure with hypercapnia Code(s): J96.00 - Acute respiratory failure, unspecified whether with hypoxia or hypercapnia Status: Acute Assessment and Plan: secondary to pulmonary edema from CHF and advancing CKD questionable pneumonia follow culture data - completed course of antibiotics NRB/BiPAP for respiratory support; on supplemental oxygen continue diuresis (4) CHF (congestive heart failure): Code(s): I50.9 - Heart failure, unspecified Status: Acute Assessment and Plan: acute on chronic (diastolic) on lasix gtt with good diuresis almost 11L negative since admission transitioned to scheduled IV diuretics recent Echo noted follow I/Os, respiratory status, and exam Cardiology following (5) Atrial fibrillation: Qualifiers: Atrial fibrillation type: paroxysmal Qualified Code(s): I48.0 - Paroxysmal atrial fibrillation Code(s): I48.91 - Unspecified atrial fibrillation Status: Acute Assessment and Plan: continue rate control strategy on anticoagulation (6) Type 2 diabetes mellitus: Code(s): E11.9 - Type 2 diabetes mellitus without complications Status: Acute Assessment and Plan: follow accuchecks on SSI and Lantus per hospitalists Will continue to follow. Subjective Date/time seen: 02/28/23 14:31 Interval history: Follow-up for acute kidney injury on chronic kidney disease and volume/fluid overload. Breathing/respiratory status seems to be doing relatively well; swelling/edema have improved as well; creatinine elevated but relatively stable in the last few days; no acute distress noted; only other complaint is some mild nausea and diarrhea. Exam Narrative: General: elderly male in NAD Heart:IRRR, normal S1 and S2; no rub Lungs: coarse breath sounds and decreased at bases Abdomen: soft, nontender, nondistended, positive bowel sounds Extremities: no cyanosis or clubbing; trace edema Skin: warm and dry Objective Data Vital Signs Vital Signs: Vital Signs Temp Pulse Resp BP Pulse Ox O2 Del Method FiO2 02/28/23 14:22 Room Air 02/28/23 09:11 68 02/28/23 09:10 68
[2023-02-28 16:54] LABS: Glucose Point of Care 209 mg/dl (65-105)
[2023-02-28] MEDS: WARFARIN (*PBKC) 5 MG TABLET PO (17:59)
[2023-02-28] MEDS: MELATONIN 5 MG TABLET PO (20:37)
[2023-02-28 20:51] LABS: Glucose Point of Care 212 mg/dl (65-105)
[2023-03-01] MEDS: LEVOTHYROXINE SODIUM 50 MCG TABLET PO (05:41)
[2023-03-01 05:50] VITALS: BP 128/45; PULSE 75; RESP 16; TEMP 36.1; O2SAT 97
[2023-03-01 07:16] LABS: Prothrombin Time 23.7 Seconds (11.1-14.7)
[2023-03-01 08:08] LABS: Glucose Point of Care 166 mg/dl (65-105)
[2023-03-01 09:40] VITALS: BP 107/65; PULSE 76; O2SAT 98
--- NOTE | 2023-03-01 09:40 | PCNFU ---
Nutrition Follow-Up Complete: Inadequate energy intake related to reduced appetite as evidenced by charted intake and nursing report Goal:PO intake greater than 50% of meals and supplements Pt current nutrition is minced and moist level 5, Renal/heart healthy. Nutrition recommendation: continue with current plan of care Last recorded weight is 105.4 kg - wt has dropped, noted on lasix therapy, edema has improved Bowel Motility: +BM 02/28 Labs Reviewed: Hgb:10.8, HCT:34.7, BUN:97, Cr:2.8, Glu:207 Meds Noted: lasic, lantus, novolog, protonix Skin: WNL Additional Notes: Pt continues on a minced and moist level 5 Renal diet. Intake varied, currently 25-75%. Noted pt does not want any supplements. Continue to encourage po intake of meals. Monitor intake, wt, labs. Follow up in 7 days.
[2023-03-01] MEDS: CLOPIDOGREL BISULFATE 75 MG TABLET PO (10:00)
[2023-03-01] MEDS: MIDODRINE HCL 10 MG TABLET PO ×2 (10:00→17:24)
[2023-03-01] MEDS: TOLNAFTATE 1% POWDER 45 GM BTL 1 APPLIC TOPICAL (10:00)
[2023-03-01] MEDS: THERAPEUTIC MULTIVITAMINS/MINERALS TAB (*BKC) 1 TABLET PO (10:00)
[2023-03-01] MEDS: PANTOPRAZOLE 40 MG TABLET PO (10:00)
[2023-03-01] MEDS: INSULIN GLARGINE (*BKC) 100 UNITS/ML 20 UNITS SUB-Q (10:02)
[2023-03-01 10:23] LABS: Albumin Level 3.8 g/dL (3.5-5.1); Anion Gap 9 mmol/L (8-16); Blood Urea Nitrogen 81 mg/dL (9-20); Calcium 8.8 mg/dL (8.4-10.2); Carbon Dioxide 35 mmol/L (22-30); Chloride 95 mmol/L (98-107); Estimated CRCL calculation 22 ml/min; Estimated Glomerular Filt Rate 19; Glucose 160 mg/dL (65-110); Phosphorus 3.8 mg/dL (2.5-4.5); Potassium 3.4 mmol/L (3.4-5.0); Sodium 139 mmol/L (137-145)
--- NOTE | 2023-03-01 10:35 | PCOTNOTE ---
Patient refused treatment this session due to not feeling well, Patient holding an emesis bag at this time. Patient refused to participate in any activities at this time.
--- NOTE | 2023-03-01 11:05 | PM.IMPN ---
Progress Note: A&P Assessment and Plan (1) Acute respiratory failure: Qualifiers: Respiratory failure complication: hypoxia and hypercapnia Qualified Code(s): J96.01 - Acute respiratory failure with hypoxia; J96.02 - Acute respiratory failure with hypercapnia; J96.02 - Acute respiratory failure with hypercapnia Code(s): J96.00 - Acute respiratory failure, unspecified whether with hypoxia or hypercapnia Status: Acute Assessment and Plan: Acute respiratory failure likely secondary to pulmonary edema secondary to congestive heart failure and chronic kidney disease leading to volume overload Switched to IV Bumex. Monitor renal function with diuresis. (2) CHF (congestive heart failure): Qualifiers: Heart failure chronicity: unspecified Heart failure type: unspecified Qualified Code(s): I50.9 - Heart failure, unspecified Code(s): I50.9 - Heart failure, unspecified Status: Acute Assessment and Plan: Echo Summary ? 1. Complete two-dimensional, color flow and Doppler transthoracic echocardiogram is performed. ? 2. Left ventricular chamber dimension is normal. ? 3. Left ventricular systolic function is normal, estimated at 55-60%. ? 4. There is mildly increased left ventricular wall thickness. ? 5. Global longitudinal strain is abnormal at -12 %. ? 6. Right ventricular systolic function is normal. ? 7. Left atrial chamber dimension is moderately enlarged. ? 8. Right atrial chamber dimension is mildly enlarged. ? 9. There is moderate aortic valve calcification. ? 10. There is mild aortic valve stenosis with a peak velocity of 245 cm/s, mean gradient of 12 mmHg, and aortic valve area of 1.9 cm2. ? 11. The mitral valve annulus is mildly calcified. ? 12. There is mild mitral valve regurgitation. ? 13. There is mild tricuspid valve regurgitation. ? 14. Pulmonary hypertension with estimated PASP of 52mmHg. Cardiology following Switched to IV Bumex. diuresing well on that (3) Chronic kidney disease: Code(s): N18.9 - Chronic kidney disease, unspecified Status: Acute Assessment and Plan: Appreciate nephrology following the patient. Current creatinine levels may be his new baseline Acceptable electrolytes and acid-base status at this time (4) Type 2 diabetes mellitus: Code(s): E11.9 - Type 2 diabetes mellitus without complications Status: Acute Assessment and Plan: SSI and Lantus (5) Atrial fibrillation: Qualifiers: Atrial fibrillation type: paroxysmal Qualified Code(s): I48.0 - Paroxysmal atrial fibrillation Code(s): I48.91 - Unspecified atrial fibrillation Status: Acute Assessment and Plan: Continue p.o. 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 Rate controlled, No murmurs Circulation: Pedal pulses are intact and symmetrical. Abdomen: Normal bowel sounds. Soft. NT. ND. Extremities: No clubbing, cyanosis. Warm. Bilateral Trace edema improved : Souza in place Neurologic: Follows commands. Moves all 4 extremities PERRL AO x3, tenderness to the cervical spine Skin: No Rash Objective Data Vital Signs Vital Signs: Vital Signs - 24 hr 02/28/23 14:52 02/28/23 15:03 02/28/23 20:00 Temperature 97.5 F L Pulse Rate 71 Respiratory Rate 18 Blood Pressure 146/75 H Pulse Oximetry 97 97 Oxygen Delivery Room Air Room Air Fraction of Inspir
[2023-03-01 11:46] LABS: Glucose Point of Care 219 mg/dl (65-105)
--- NOTE | 2023-03-01 14:16 | P.DS_ITS ---
DS: Admitting Diagnosis Discharge Date 03/01/2023 Admitting Diagnosis Acute kidney injury Acute CHF exacerbation DS: Discharge Diagnosis Discharge Diagnosis (1) JOSE F (acute kidney injury): Code(s): N17.9 - Acute kidney failure, unspecified Status: Acute (2) Acute respiratory failure: Qualifiers: Respiratory failure complication: hypoxia and hypercapnia Qualified Code(s): J96.01 - Acute respiratory failure with hypoxia; J96.02 - Acute respiratory failure with hypercapnia; J96.02 - Acute respiratory failure with hypercapnia Code(s): J96.00 - Acute respiratory failure, unspecified whether with hypoxia or hypercapnia Status: Acute (3) Acute on chronic diastolic (congestive) heart failure: Code(s): I50.33 - Acute on chronic diastolic (congestive) heart failure Status: Acute (4) Hypertension: Code(s): I10 - Essential (primary) hypertension Status: Acute DS: Summary Hospital Course Hospital Course: Assessment and Plan (1) JOSE F (acute kidney injury): * creatinine fluctuating -- suspect a new baseline * acute versus progression of disease (see #2) * acute CHF and necessity of high dose diuretics likely playing a role as well * renal ultrasound (done a month ago) with any acute issue/problems * still remains at risk for needing/requiring STORE STOCKER/dialysis but renal function seems to be doing better with conservative therapy * on scheduled IV diuretics currently * possible transition to oral -- will recheck CXR * follow repeat labs and UOP (2) Chronic kidney disease, stage 3b: * baseline creatinine runs ~ 2.0mg/dl * due to HTN, DM, CHF, vascular disease, EILEEN/pulmonary hypertension, and age- related change * however, from his last hospitalization a month ago her, his creatinine was running higher due to diuresis and need for high dose diuretics. this may have led to some CKD progression to CKD stage 4 versus the fact that he needs a higher creatinine to achieve relative euvolemia * remains at risk for STORE STOCKER/dialysis in the future * follows with Dr. Rodriguez for management of his CKD (3) Acute respiratory failure: * secondary to pulmonary edema from CHF and advancing CKD * continue diuresis (4) CHF (congestive heart failure): * acute on chronic (diastolic) * transitioned to scheduled IV diuretics * recent Echo noted * follow I/Os, respiratory status, and exam * Cardiology following * Now on oral Bumex (5) Atrial fibrillation: * continue rate control strategy * on anticoagulation (6) Type 2 diabetes mellitus: * follow accuchecks * Resume home meds Patient is clinically stable and back to baseline and being discharged to long term facility Time Spent with Patient Time attestation: Total time spent providing and/or coordinating discharge services: Exam Narrative: General: Pt is alert awake in no distress Lungs/Chest: Trachea central, coarse bilateral breath sounds, no significant respiratory distress or tachypnea Cardiac: Irregularly irregular. Rate controlled, No murmurs Circulation: Pedal pulses are intact and symmetrical. Abdomen: Normal bowel sounds. Soft. NT. ND. Extremities: No clubbing, cyanosis. Warm. Bilateral Trace edema improved : Souza in place Neurologic: Follows commands. Moves all 4 extremities PERRL AO x3, tenderness to the cervical spine Skin: No Rash DS: Data Data Completed and Pending Labs on day of discharge: Labs from last 24 hours 03/01/23 03/01/23 03/01/23
--- NOTE | 2023-03-01 14:16 | PM.DS ---
DS: Admitting Diagnosis Discharge Date 03/01/2023 Admitting Diagnosis Acute kidney injury Acute CHF exacerbation DS: Discharge Diagnosis Discharge Diagnosis (1) JOSE F (acute kidney injury): Code(s): N17.9 - Acute kidney failure, unspecified Status: Acute (2) Acute respiratory failure: Qualifiers: Respiratory failure complication: hypoxia and hypercapnia Qualified Code(s): J96.01 - Acute respiratory failure with hypoxia; J96.02 - Acute respiratory failure with hypercapnia; J96.02 - Acute respiratory failure with hypercapnia Code(s): J96.00 - Acute respiratory failure, unspecified whether with hypoxia or hypercapnia Status: Acute (3) Acute on chronic diastolic (congestive) heart failure: Code(s): I50.33 - Acute on chronic diastolic (congestive) heart failure Status: Acute (4) Hypertension: Code(s): I10 - Essential (primary) hypertension Status: Acute DS: Summary Hospital Course Hospital Course: Assessment and Plan (1) JOSE F (acute kidney injury): creatinine fluctuating -- suspect a new baseline acute versus progression of disease (see #2) acute CHF and necessity of high dose diuretics likely playing a role as well renal ultrasound (done a month ago) with any acute issue/problems still remains at risk for needing/requiring AIRDOX FITTER/dialysis but renal function seems to be doing better with conservative therapy on scheduled IV diuretics currently possible transition to oral -- will recheck CXR follow repeat labs and UOP (2) Chronic kidney disease, stage 3b: baseline creatinine runs ~ 2.0mg/dl due to HTN, DM, CHF, vascular disease, EILEEN/pulmonary hypertension, and age-related change however, from his last hospitalization a month ago her, his creatinine was running higher due to diuresis and need for high dose diuretics. this may have led to some CKD progression to CKD stage 4 versus the fact that he needs a higher creatinine to achieve relative euvolemia remains at risk for AIRDOX FITTER/dialysis in the future follows with Dr. Rodriguez for management of his CKD (3) Acute respiratory failure: secondary to pulmonary edema from CHF and advancing CKD continue diuresis (4) CHF (congestive heart failure): acute on chronic (diastolic) transitioned to scheduled IV diuretics recent Echo noted follow I/Os, respiratory status, and exam Cardiology following Now on oral Bumex (5) Atrial fibrillation: continue rate control strategy on anticoagulation (6) Type 2 diabetes mellitus: follow accuchecks Resume home meds Patient is clinically stable and back to baseline and being discharged to [facility] Time Spent with Patient Time attestation: Total time spent providing and/or coordinating discharge services: Exam Narrative: General: Pt is alert awake in no distress Lungs/Chest: Trachea central, coarse bilateral breath sounds, no significant respiratory distress or tachypnea Cardiac: Irregularly irregular. Rate controlled, No murmurs Circulation: Pedal pulses are intact and symmetrical. Abdomen: Normal bowel sounds. Soft. NT. ND. Extremities: No clubbing, cyanosis. Warm. Bilateral Trace edema improved : Souza in place Neurologic: Follows commands. Moves all 4 extremities PERRL AO x3, tenderness to the cervical spine Skin: No Rash DS: Data Data Completed and Pending Labs on day of discharge: Labs from last 24 hours 03/01/23 03/01/23 03/01/23 11:41 08:04 06:44 PT 23.7 H INR 2.0 Sodium Potassium Chloride Carbon Dioxide Anion Gap BUN Creatinine Estim Creat Clear Calc Estimated GFR Glucose POC Capillary Glucose 219 H 166 H Calcium Phosphorus Albumin 03/01/23 02/28/23 02/28/23 06:41 20:38 16:48 PT INR Sodium 139 Potassium 3.4 Chloride 95 L Carbon Dioxide 35 H Anion Gap 9 BUN 81 H Creatinine 3.20 H Estim Creat Clear Calc 22 Estimated G
[2023-03-01 15:01] VITALS: BP 126/74; PULSE 62; RESP 18; TEMP 36.2; O2SAT 100
[2023-03-01 16:37] LABS: EDCOVIDSCREEN Negative (Negative)
[2023-03-01 17:14] LABS: Glucose Point of Care 195 mg/dl (65-105)
[2023-03-01] MEDS: WARFARIN (*PBKC) 5 MG TABLET PO (17:24)
[2023-03-01] MEDS: BUMETANIDE INJ 1 MG/4 ML VIAL 2 MG IV PUSH (17:24)
[2023-03-01 17:25] VITALS: BP 130/80
== END 2023-03-01 18:48 | DRG 291 ==
LOC: ANHED 10:34 → ANHIMU 11:17 → ANH3MEDSUR 02-18 09:28 → ANHICU 02-18 13:59 → ANH3MEDSUR 02-28 08:25 → ANHICU 03-02 11:16 → ANHIMU 03-02 11:16
PROVIDERS: Internal Medicine; Internal Medicine Nephrology; Admitting Provider Internal Medicine; Emergency Provider Emergency Medicine; PCP Registered Nurse; Visit Provider Hospitalist
DX: I13.0 Hypertensive heart and chronic kidney disease with heart failure and stage 1 through stage 4 chronic kidney disease, or unspecified chronic kidney disease (principal); I50.33 Acute on chronic diastolic (congestive) heart failure; J96.01 Acute respiratory failure with hypoxia; J96.02 Acute respiratory failure with hypercapnia; J18.9 Pneumonia, unspecified organism; N17.9 Acute kidney failure, unspecified; I48.20 Chronic atrial fibrillation, unspecified; N18.32 Chronic kidney disease, stage 3b; I25.10 Atherosclerotic heart disease of native coronary artery without angina pectoris; I35.0 Nonrheumatic aortic (valve) stenosis; I27.20 Pulmonary hypertension, unspecified; D63.1 Anemia in chronic kidney disease; E05.90 Thyrotoxicosis, unspecified without thyrotoxic crisis or storm; E03.9 Hypothyroidism, unspecified; E11.22 Type 2 diabetes mellitus with diabetic chronic kidney disease; J02.9 Acute pharyngitis, unspecified; M54.2 Cervicalgia; R77.8 Other specified abnormalities of plasma proteins; B34.9 Viral infection, unspecified; G47.30 Sleep apnea, unspecified; Z20.822 Contact with and (suspected) exposure to COVID-19; I25.2 Old myocardial infarction; Z79.02 Long term (current) use of antithrombotics/antiplatelets; Z95.5 Presence of coronary angioplasty implant and graft; Z79.4 Long term (current) use of insulin; Z79.01 Long term (current) use of anticoagulants
CPT/HCPCS: 36415; 36600; 71045; 72040; 80048; 80053; 80069; 82805; 82948; 83036; 83735; 83880; 84145; 84439; 84443; 84484; 85025; 85027; 85610; 85730; 86140; 87040; 87426; 87637; 92611; 93005; 94002; 94003; 94640; 96365; 96366; 96367; 96375; 96376; 97110; 97116; 97161; 97165; 97530; 97535; 99285; A9270; C9803; G0378; J0692; J1120; J1815; J1940; J2060; J2270; J2405; J2550

== ENCOUNTER 2023-08-20 15:07 | Observation (INO) | payer MEDICARE, MEDICAID, SELFPAY ==
[2023-08-20] VITALS (10 sets, daily range): BP systolic 116–142; BP diastolic 71–107; PULSE 56–89; RESP 12–23; TEMP 36.5–36.8; O2SAT 93–98; BMI 35.2
--- NOTE | ~2023-08-20 | XR_ITS ---
XR chest 2V 08/20/2023 15:58 Indication: CHF. Hypoxia. Procedure: 2 view chest Comparison: Comparison to multiple prior studies sequentially, with oldest reviewed study dated 11/2022. Findings: Cardiomegaly with pulmonary edema. Small left pleural effusion. No pneumothorax. No acute o sseous abnormality. Impression: 1: Cardiomegaly with mild interstitial edema, unchanged. 2: Small left pleural effusion. Reviewed, dictated and finalized at location A. Impression: 1: Cardiomegaly with mild interstitial edema, unchanged. 2: Small left pleural effusion.
--- NOTE | ~2023-08-20 | US_ITS ---
EXAMINATION: US renal BI DATE: 08/23/2023 08:38 INDICATION: Acute on chronic kidney disease. TECHNIQUE: Multiple ultrasound grayscale images of the kidneys were obtained. COMPARISON: Ultrasound kidneys 12/31/2022 FINDINGS: The right kidney measures 14.4 x 7.4 x 6.3 cm. The left kidney measures 13.0 x 5.3 x 5.2 cm. The kidn eys demonstrate normal parenchymal echogenicity. There are cysts in the kidneys measuring up to 7.4 c m on the right. There is no hydronephrosis. The bladder is normal. IMPRESSION: 1. Normal kidney sizes. No hydronephrosis. Reviewed, dictated and finalized at location E.
--- NOTE | 2023-08-20 15:26 | ECG_ITS ---
Measurements Intervals [place] Rate: 87 P: NM: 0 QRS: -3 QRSD: 108 T: 61 QT: 402 QTc: 486 Interpretive Statements ATRIAL FIBRILLATION NONSPECIFIC T-WAVE ABNORMALITY ABNORMAL RHYTHM ECG COMPARED TO ECG 02/17/2023 20:01:01 ARM LEAD REVERSAL NO LONGER PRESENT Electronically Signed On 08-21-2023 11:23:18 CDT by Grady Lindquist M.D.
--- NOTE | 2023-08-20 15:50 | PC.NURSE ---
Pt to XRAY via stretcher at this time.
[2023-08-20 15:57] LABS: Basophils Percent Auto 0.5 % (0.2-1.2); Eosinophils Absolute Auto 0.3 K/mm3 (0-0.3); Eosinophils Percent Auto 4.1 % (0-4.4); Hematocrit 31.8 % (42.0-52.0); Hemoglobin 9.6 g/dL (14.0-18.0); Immature Granulocyte Absolute 0.03 K/mm3 (0.00-0.031); Immature Granulocyte Percent A 0.4 % (0-0.5); Lymphocytes Absolute Auto 1.35 K/mm3 (0.9-3.2); Lymphocytes Percent Auto 17.3 % (18.3-44.2); Mean Corpuscular HGB Conc 30.2 g/dl (32-36); Mean Corpuscular Hemoglobin 31.8 pg (26-34); Mean Corpuscular Volume 105.3 fl (80-100); Mean Platelet Volume 10.7 fl (7.4-10.4); Monocytes Absolute Auto 0.5 K/mm3 (0.1-0.6); Monocytes Percent Auto 6.3 % (2.6-8.5); Neutrophils Absolute Auto 5.6 K/mm3 (1.3-6.7); Neutrophils Percent Auto 71.4 % (45.5-73.1); Platelet Count Result 231 k/mm3 (150-375); Red Blood Count 3.02 M/mm3 (4.6-6.20); Red Cell Distribution Width 16.9 % (11.5-14.5); White Blood Count 7.8 K/mm3 (4.5-10.0)
[2023-08-20 16:07] LABS: Alanine Aminotransferase 21 U/L (6-50); Albumin Level 3.8 g/dL (3.5-5.1); Alkaline Phosphatase 99 U/L (38-126); Anion Gap 8 mmol/L (8-16); Aspartate Amino Transferase 23 U/L (17-59); Bilirubin,Total 0.5 mg/dL (0.2-1.3); Blood Urea Nitrogen 70 mg/dL (9-20); Calcium 9.1 mg/dL (8.4-10.2); Carbon Dioxide 25 mmol/L (22-30); Chloride 107 mmol/L (98-107); Estimated CRCL calculation 27 ml/min; Estimated Glomerular Filt Rate 23; Glucose 140 mg/dL (65-110); INR 2.4; Potassium 4.1 mmol/L (3.4-5.0); Prothrombin Time 28.1 Seconds (11.1-14.7); Sodium 140 mmol/L (137-145)
[2023-08-20 16:21] LABS: NT Pro B Type Natriuretic Pept 8580 pg/mL (19.9-100); Troponin I 0.578 ng/mL (0.000-0.034)
[2023-08-20 16:32] LABS: Platelet Estimate Adequate (Adequate)
[2023-08-20 16:33] LABS: Anisocytosis 2+ (NORMAL); Hypochromasia 1+ (NORMAL); Schistocytes None Seen (NORMAL)
--- NOTE | 2023-08-20 18:02 | ED.RECABL ---
HPI - Recheck/Abnormal Lab/Rx General Chief Complaint: Recheck/Abnormal Lab/Rx Stated Complaint: recent med change, fluid overload Time Seen by Provider: 08/20/23 17:01 History of Present Illness HPI narrative: 78-year-old male with history of CKD, insulin-dependent diabetes, CHF, hypertension, atrial fibrillation chronically anticoagulated on warfarin reports for evaluation for bilateral lower extremity edema, abdominal swelling and difficulty breathing x2 days. Reports associated orthopnea And 6 lb weight gain in the past week. Patient states a few weeks ago, his creatinine continued as decreased so 1 of his doctors discontinued 2 of his diuretics including spironolactone. States he is still taking 1 diuretic. his plasterer tender is Dr. Brandon and his shredder tender is Dr. Wheeler at [facility]. He denies chest pain, abdominal pain, nausea vomiting, diarrhea, dysuria or hematuria, fever, cough or congestion. He does report abdominal distension and tightness but denies pain. Patient states he has been taking all his medications as directed. per chart review, last echo was 12/19/2022 which showed the following: Summary ? 1. Complete two-dimensional, color flow and Doppler transthoracic echocardiogram is performed. ? 2. Left ventricular chamber dimension is normal. ? 3. Left ventricular systolic function is normal, estimated at 55-60%. ? 4. There is mildly increased left ventricular wall thickness. ? 5. Global longitudinal strain is abnormal at -12 %. ? 6. Right ventricular systolic function is normal. ? 7. Left atrial chamber dimension is moderately enlarged. ? 8. Right atrial chamber dimension is mildly enlarged. ? 9. There is moderate aortic valve calcification. ? 10. There is mild aortic valve stenosis with a peak velocity of 245 cm/s, mean gradient of 12 mmHg, and aortic valve area of 1.9 cm2. ? 11. The mitral valve annulus is mildly calcified. ? 12. There is mild mitral valve regurgitation. ? 13. There is mild tricuspid valve regurgitation. ? 14. Pulmonary hypertension with estimated PASP of 52mmHg. Related Data Home Medications Medication Instructions Recorded Confirmed clopidogrel 75 mg tablet 75 mg PO DAILY 04/12/21 08/20/23 doxazosin 2 mg tablet (Cardura) 2 mg PO HS 04/12/21 08/20/23 insulin detemir U-100 100 unit/mL 25 unit subcut HS 04/12/21 08/20/23 subcutaneous solution (Levemir U-100 Insulin) isosorbide mononitrate 120 mg 120 mg PO DAILY 04/12/21 08/20/23 tablet,extended release 24 hr acetaminophen 325 mg tablet 325 mg PO Q6H PRN Pain 01/27/22 08/20/23 alirocumab 150 mg/mL subcutaneous 150 mg subcut MONTHLY 01/27/22 08/20/23 pen injector (Praluent Pen) amiodarone 200 mg tablet 200 mg PO DAILY 01/27/22 08/20/23 ascorbate calcium (vitamin C) 500 1,000 mg PO DAILY 01/27/22 08/20/23 mg tablet hydralazine 100 mg tablet 50 mg PO TID 01/27/22 08/20/23 levothyroxine 112 mcg tablet 88 mcg PO DAILY 01/27/22 08/20/23 (Euthyrox) losartan 50 mg tablet 25 mg PO DAILY 01/27/22 08/20/23 magnesium oxide 400 mg (241.3 mg 400 mg PO BID 01/27/22 08/20/23 magnesium) tablet metoprolol succinate 25 mg 25 mg PO DAILY 01/27/22 08/20/23 tablet,extended release 24 hr pantoprazole 40 mg tablet,delayed 40 mg PO DAILY 01/27/22 08/20/23 release warfarin 5 mg tablet 5 mg PO DIRECTED 01/27/22 08/20/23 allopurinol 300 mg tablet 300 mg PO DAILY 12/29/22 08/20/23 glipizide 10 mg tablet 10 mg PO BID 12/29/22 08/20/23 calcium 500 mg tablet 500 mg PO BID 02/17/23 08/20/23 cholecalciferol (vitamin D3) 50 50 mcg PO DAILY 02/17/23 08/20/23 mcg (2,000 unit) tablet (Vitamin D3) ferrous sulfate 325 mg (65 mg 325 mg PO DAILY 02/17/23 08/20/23 iron) tablet nitroglycerin 0.4 mg sublingual 0.4 mg sublingual Q5M PRN Chest 02/17/23 08/20/23 tablet Pain ondansetron 8 mg disintegrating 8 mg PO Q8H PRN Nausea And Vomiting 02/17/23 08/20/23 tablet bumetanide 2 mg tablet 2 mg PO DAILY 08/20/23 08/20/23 warfarin 6 mg tablet 6 mg PO DIRECTED 1
[2023-08-20] MEDS: FUROSEMIDE INJ 40 MG/4 ML VIAL IV PUSH (18:18)
--- NOTE | 2023-08-20 18:22 | PC.NURSE ---
male external catheter placed w/ reg low suctioning
--- NOTE | 2023-08-20 22:26 | ADMGEN ---
This patient, Nigel Wang, was admitted to IMU Room 211-01. @ 2100 Patient/family oriented to hospital policies and general routines including ID bracelet, bed and alarms, visiting hours, pain management, procedures, bathroom and other care routines, personal items, smoking policy, room service/diet, and visiting hours. Information on how to activate the Rapid Response Team has been discussed. Patient/Family are encouraged to report perceived risks to care and to ask questions if they do not understand what they are told or what they should do.
[2023-08-21] VITALS (18 sets, daily range): BP systolic 99–148; BP diastolic 59–128; PULSE 76–131; RESP 18–22; TEMP 36.1–36.9; O2SAT 95–97
--- NOTE | 2023-08-21 | ECHO_ITS ---
Patient Info Name: Nigel Wang Age: 78 years : 1945 Gender: Male Ht: 72 in Wt: 257 lbs BSA: 2.47 m2 HR: 101 bpm BP: 148 / 128 mmHg Heart Rhythm: Sinus Rhythm Technical Quality: Fair Exam Date: 08/21/2023 3:49 PM Exam Location: Echo Lab Patient Status: Outpatient Admit Date: 08/20/2023 Staff Ordering Physician: Jihan Nunez MD Sack Cleaning Hand: Lo Pendleton RDCS Attending Provider: Kendra Braun DO Exam Type: CA echo doppler color flow Study Info Indications - chf Complete two-dimensional, color flow and Doppler transthoracic echocardiogram is performed. Summary 1. Complete two-dimensional, color flow and Doppler transthoracic echocardiogram is performed. 2. Left ventricular chamber dimension is mildly enlarged. 3. Left ventricular systolic function is severely reduced, estimated at 20-25%. 4. There is mildly increased left ventricular wall thickness. 5. The left ventricular diastolic function is grade I diastolic dysfunction. 6. The apical septum, apical lateral wall, apical cap, mid inferoseptal, and mid anteroseptal are akinetic. 7. The apical inferior wall, apical anterior wall, mid anterior wall, basal inferoseptal, mid anterolateral wall, basal anteroseptal, and mid inferolateral wall are hypokinetic. 8. Left atrial chamber dimension is mildly enlarged. 9. There is mild aortic valve stenosis with a peak velocity of 254 cm/s, mean gradient of 11 mmHg, and aortic valve area of 2.2 cm2. 10. There is mild to moderate aortic valve regurgitation. 11. There is moderate aortic valve calcification. 12. There is moderate mitral valve regurgitation. 13. The mitral valve annulus is moderately calcified. 14. There is mild tricuspid valve regurgitation. 15. Moderate pulmonary hypertension, estimated pulmonary arterial systolic pressure is 51 mmHg. 16. There is mild pulmonic regurgitation. Left Ventricle Left ventricular chamber dimension is mildly enlarged. Left ventricular systolic function is severely reduced, estimated at 20-25%. There is mildly increased left ventricular wall thickness. The left ventricular diastolic function is grade I diastolic dysfunction. The apical septum, apical lateral wall, apical cap, mid inferoseptal, and mid anteroseptal are akinetic. The apical inferior wall, apical anterior wall, mid anterior wall, basal inferoseptal, mid anterolateral wall, basal anteroseptal, and mid inferolateral wall are hypokinetic. All other house appear normal. Right Ventricle Right ventricular chamber dimension is normal. Right ventricular systolic function is normal. Left Atria Left atrial chamber dimension is mildly enlarged. Right Atria Right atrial chamber dimension is normal. Atrial Septum Intact interatrial septum visualized by color flow imaging. Aortic Valve The aortic valve is trileaflet. There is mild aortic valve stenosis with a peak velocity of 254 cm/s, mean gradient of 11 mmHg, and aortic valve area of 2.2 cm2. There is mild to moderate aortic valve regurgitation. There is moderate aortic valve calcification. Pulmonic Valve The pulmonic valve is normal. There is no pulmonic valve stenosis. There is mild pulmonic regurgitation. Mitral Valve There is no mitral valve stenosis. There is moderate mitral valve regurgitation. The mitral valve annulus is moderately calcified. Tricuspid Valve The tricuspid valve leaflets are normal. There is no significant tricuspid valve stenosis. There is mild tricuspid valve regurgitation. Moderate pulmonary hypertension, estimated pulmonary arterial systolic pressure is 51 mmHg.
[2023-08-21] MEDS: ACETAMINOPHEN 325 MG TABLET 650 MG PO (10:34)
--- NOTE | 2023-08-21 15:17 | PM.IMHP ---
H&P: HPI History of Present Illness Date/Time: 08/21/23 15:17 Chief Complaint: Weight gain Narrative: 78-year-old male with history of CKD, insulin-dependent diabetes, CHF, hypertension, atrial fibrillation chronically anticoagulated on warfarin reports for evaluation for bilateral lower extremity edema, abdominal swelling and difficulty breathing x2 days.? Reports associated orthopnea? And 6 lb weight gain in the past week. Pt states his PCP is DR Patel from [facility] and cardiology is also from [facility] was told to stop his diuretics because his creat was going up. Pt noticed weight gain over 6 lbs and abdominal distension His tutoring assistant is here DR Brandon D/W Nephrology here ok to continue iv lasix for volume overload watch UO and kidney function trend order ECHOCARDIOGRAM Review of Systems Review of Systems: Weight gain and abdominal swelling [facility] Past Medical History Medical History (Updated 08/21/23 @ 15:24 by Jihan Nunez MD) Aortic stenosis, mild Atrial fib/flutter, transient Atrial fibrillation Chronic anticoagulation Chronic kidney disease Coronary artery disease Heart failure with preserved ejection fraction Hypertension Hypothyroidism 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 Code status: Do not resuscitate. Years smoked: 20 Smoking status: Former smoker Tobacco type: cigars Second hand tobacco smoke exposure: No Additional smoking assessment comments: smoked 25 years ago Alcohol intake: never Substance use: never Substance use type: painkillers Lack of Transportation: No Lack of Food: Never True Current Housing: I Have Housing Concerned About Future Housing: No Difficulty Paying Gas/Electric Bills: No Difficulty Paying for Meds: No Currently Unemployed: No Education: High School Diploma/GED Difficulty w/ Childcare or Family Care: No Additional living arrangements comments: with 2 sons. Lives in assisted living at [facility]. 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 Spiritual care concerns: No Meds Home Medications and Allergies Home Medications Medication Instructions Recorded Confirmed Type clopidogrel 75 mg tablet 75 mg PO DAILY 04/12/21 08/20/23 History doxazosin 2 mg tablet (Cardura) 2 mg PO HS 04/12/21 08/20/23 History insulin detemir U-100 100 unit/mL 25 unit subcut HS 04/12/21 08/20/23 History subcutaneous solution (Levemir U-100 Insulin) isosorbide mononitrate 120 mg 120 mg PO DAILY 04/12/21 08/20/23 History tablet,extended release 24 hr acetaminophen 325 mg tablet 325 mg PO Q6H PRN Pain 01/27/22 08/20/23 History alirocumab 150 mg/mL subcutaneous 150 mg subcut MONTHLY 01/27/22 08/20/23 History pen injector (Praluent Pen) amiodarone 200 mg tablet 200 mg PO DAILY 01/27/22 08/20/23 History ascorbate calcium (vitamin C) 500 1,000 mg PO DAILY 01/27/22 08/20/23 History mg tablet hydralazine 100 mg tablet 50 mg PO TID 01/27/22 08/20/23 History levothyroxine 112 mcg tablet 88 mcg PO DAILY 01/27/22 08/20/23 History (Euthyrox) losartan 50 mg tablet 25 mg PO DAILY 01/27/22 08/20/23 History magnesium oxide 400 mg (241.3 mg 400 mg PO BID 01/27/22 08/20/23 History magnesium) tablet metoprolol succinate 25 m
[2023-08-21] MEDS: MAGNESIUM OXIDE 400 MG TABLET PO (16:20)
[2023-08-21] MEDS: CALCIUM CARBONATE (OSCAL) 500 MG TABLET PO (16:20)
[2023-08-21] MEDS: hydrALAZINE HCL 50 MG TABLET PO (16:20)
[2023-08-21] MEDS: FUROSEMIDE INJ 40 MG/4 ML VIAL 20 MG IV PUSH (16:20)
[2023-08-21 16:50] LABS: Glucose Point of Care 166 mg/dl (65-105)
[2023-08-21 17:07] LABS: INR 2.1; Prothrombin Time 24.7 Seconds (11.1-14.7)
[2023-08-21 20:16] LABS: Glucose Point of Care 196 mg/dl (65-105)
[2023-08-21] MEDS: WARFARIN (*PBKC) 5 MG TABLET PO (20:49)
[2023-08-21] MEDS: INSULIN GLARGINE (*BKC) 100 UNITS/ML 15 UNITS SUB-Q (21:00)
[2023-08-22] VITALS (20 sets, daily range): BP systolic 97–136; BP diastolic 56–83; PULSE 71–109; RESP 20–22; TEMP 35.9–36.7; O2SAT 93–98
[2023-08-22] MEDS: ALBUTEROL SULFATE NEB 2.5 MG/3 ML INH INHALATION (05:26)
[2023-08-22 05:46] LABS: Hematocrit 30.9 % (42.0-52.0); Hemoglobin 9.3 g/dL (14.0-18.0); Mean Corpuscular HGB Conc 30.1 g/dl (32-36); Mean Corpuscular Volume 106.2 fl (80-100); Mean Platelet Volume 11.1 fl (7.4-10.4); Platelet Count Result 231 k/mm3 (150-375); Red Blood Count 2.91 M/mm3 (4.6-6.20); Red Cell Distribution Width 16.4 % (11.5-14.5); White Blood Count 8.2 K/mm3 (4.5-10.0)
[2023-08-22 05:54] LABS: INR 2.1; Prothrombin Time 24.7 Seconds (11.1-14.7)
[2023-08-22 05:56] LABS: Alanine Aminotransferase 18 U/L (6-50); Albumin Level 3.6 g/dL (3.5-5.1); Alkaline Phosphatase 92 U/L (38-126); Anion Gap 6 mmol/L (8-16); Aspartate Amino Transferase 24 U/L (17-59); Bilirubin,Total 0.6 mg/dL (0.2-1.3); Blood Urea Nitrogen 67 mg/dL (9-20); Calcium 9.2 mg/dL (8.4-10.2); Carbon Dioxide 27 mmol/L (22-30); Chloride 105 mmol/L (98-107); Estimated CRCL calculation 31 ml/min; Estimated Glomerular Filt Rate 26; Glucose 159 mg/dL (65-110); Potassium 3.9 mmol/L (3.4-5.0); Sodium 138 mmol/L (137-145)
[2023-08-22] MEDS: LEVOTHYROXINE SODIUM 88 MCG TABLET PO (06:20)
[2023-08-22 08:30] LABS: Glucose Point of Care 197 mg/dl (65-105)
[2023-08-22] MEDS: ISOSORBIDE MONONITRATE 60 MG TAB.ER.24H 120 MG PO (09:06)
[2023-08-22] MEDS: CHOLECALCIFEROL 1,000 UNITS TABLET 2000 UNITS PO (09:06)
[2023-08-22] MEDS: CLOPIDOGREL BISULFATE 75 MG TABLET PO (09:06)
[2023-08-22] MEDS: CALCIUM CARBONATE (OSCAL) 500 MG TABLET PO ×2 (09:06→17:59)
[2023-08-22] MEDS: AMIODARONE HCL 200 MG TABLET PO (09:06)
[2023-08-22] MEDS: PANTOPRAZOLE 40 MG TABLET PO (09:06)
[2023-08-22] MEDS: hydrALAZINE HCL 50 MG TABLET PO (09:06)
[2023-08-22] MEDS: FUROSEMIDE INJ 40 MG/4 ML VIAL 20 MG IV PUSH ×3 (09:07→18:14)
[2023-08-22] MEDS: MAGNESIUM OXIDE 400 MG TABLET PO ×2 (09:07→18:00)
[2023-08-22] MEDS: METOPROLOL SUCCINATE EXT REL 25 MG TABCR PO (09:07)
[2023-08-22] MEDS: FERROUS SULFATE 325 MG TABLET DR PO (09:08)
--- NOTE | 2023-08-22 10:47 | PM.CNCAR ---
Assessment and Plan Assessment and plan (1) Elevated troponin: Code(s): R79.89 - Other specified abnormal findings of blood chemistry Status: Acute Assessment and Plan: Not related ACS. No significant rise or fall and no acute ST or T-wave abnormalities. (2) CKD (chronic kidney disease): Qualifiers: Chronic kidney disease stage: unspecified stage Qualified Code(s): N18.9 - Chronic kidney disease, unspecified Code(s): N18.9 - Chronic kidney disease, unspecified Status: Acute (3) Acute on chronic diastolic (congestive) heart failure: Code(s): I50.33 - Acute on chronic diastolic (congestive) heart failure Status: Acute Assessment and Plan: worsened by recent discontinuation of diuretics. 2D echocardiogram with Doppler is ordered and will be reviewed. Continue IV furosemide 20 mg IV Q 12 hours and I will give him an extra dose of furosemide 20 mg IV x1 now. Nephrology also to help guide diuretic therapy. Intake and output, daily weights will be ordered and performed. Continue isosorbide, hydralazine, metoprolol and add back losartan when able (4) Atrial fibrillation: Qualifiers: Atrial fibrillation type: paroxysmal Qualified Code(s): I48.0 - Paroxysmal atrial fibrillation Code(s): I48.91 - Unspecified atrial fibrillation Status: Acute Assessment and Plan: Rate controlled and on anticoagulation with warfarin. Goal INR between 2 and 3. Daily INRs while in hospital. On low-dose amiodarone also presumably for rate control (5) Chronic anticoagulation: Code(s): Z79.01 - [facility] (current) use of anticoagulants Status: Acute Assessment and Plan: As above Plan Outpatient follow-up with Dr. Wheeler History of Present Illness History of Present Illness Consult date/time: 08/22/23 10:47 Requesting physician: Jihan Nunez MD Consult reason: congestive heart failure Reason For Visit: CHF Exacerbation Narrative: Reason for consultation: CHF Date of service 08/22/[address] Rowan History patient is a 78-year-old male who has a history of CHF, chronic kidney disease, hypertension, AFib, chronic anticoagulation with warfarin and follows with Dr. Wheelre at a chest. He was taken off of his diuretics about 3 weeks ago due to worsening renal failure. Since then he has noticed worsening edema and abdominal distension. It progressed to the point of having some paroxysmal nocturnal dyspnea and had a 6 lb weight gain over the past week. He decided to come the hospital for further evaluation. He is being admitted for CHF exacerbation. His troponins also were elevated but without significant rise or fall. He denies any chest pain, palpitations, bleeding problems, orthopnea, shortness of breath at rest. Was started on low-dose diuretics IV but does not feel particularly better at this point. Chest x-ray did show some mild pulmonary edema BNP was elevated cardiology consultation/ Review of Systems Review of Systems: All systems reviewed & are unremarkable except as noted in HPI and below Constitutional: Constitutional: Denies body ache(s) Eyes: Eyes: Denies blurry vision ENT: Reports Normal hearing present Cardiovascular: Cardiovascular: Denies chest pain and Denies leg edema Respiratory: Respiratory: Denies dyspnea Gastrointestinal: Gastrointestinal: Reports bloating Genitourinary: Genitourinary: Denies hematuria Musculoskeletal: Musculoskeletal: Denies back pain Integumentary/Breasts: Skin/Breast: Denies dry skin Neurologic: Denies Abnormal speech present Psychiatric: Psychiatric: Denies anxiety Endocrine: Endocrine: Denies excessive sweating Hematologic/Lymphatic: Hematologic/Lymphatic: Denies easy bleeding Allergic/Immunologic: Allergic/Immunologic: Denies GI upset with certain foods PMFSH Past Medical History Medical History (Updated 08/22/23 @ 10:52 by Minh Torres
[2023-08-22 12:08] LABS: Glucose Point of Care 248 mg/dl (65-105)
--- NOTE | 2023-08-22 13:05 | PM.CNNEP ---
Assessment and Plan Assessment and plan (1) Chronic kidney disease, stage 4 (severe): Code(s): N18.4 - Chronic kidney disease, stage 4 (severe) Status: Chronic Assessment and Plan: creatinine was running ~ 2ish [place] in 2021 due to HTN, DM, CHF, vascular disease, EILEEN/pulmonary hypertension, and age-related change however, with recent last hospitalizations this year, his creatinine has been running higher (in the 3ish range) due to diuresis and need for high dose diuretics suspect some CKD progression versus the fact that he needs a higher creatinine to achieve relative euvolemia had been following with Dr. Rodriguez for management of his CKD apparently, planning to switching to Dr. Brandon (has appointment this month) (2) Acute on chronic diastolic (congestive) heart failure: Code(s): I50.33 - Acute on chronic diastolic (congestive) heart failure Status: Acute Assessment and Plan: apparently worsened by recent discontinuation of diuretic therapy Cardiology following clinically improvement with IV diuresis follow I/Os, daily weights, and respiratory status continue ongoing medical therapy (3) Atrial fibrillation: Qualifiers: Atrial fibrillation type: paroxysmal Qualified Code(s): I48.0 - Paroxysmal atrial fibrillation Code(s): I48.91 - Unspecified atrial fibrillation Status: Acute Assessment and Plan: rate control strategy on anticoagulation with warfarin continue current therapy (4) Hypertension: Code(s): I10 - Essential (primary) hypertension Status: Chronic Assessment and Plan: reasonable control follow trend of hemodynamics (5) Type 2 diabetes mellitus: Code(s): E11.9 - Type 2 diabetes mellitus without complications Status: Chronic Assessment and Plan: follow accu-cheks glycemic control per hospitalists I will continue follow the patient with you while he remains hospitalized and make further recommendations as needed. Thank you for allowing me to participate in care this patient. History of Present Illness Reason for Consult Consult date: 08/22/23 Reason for consult: chronic renal failure Chief Complaint Chief complaint: CHF Exacerbation History of Present Illness Narrative: The patient is a 78-year-old male with a past medical history as outlined below presented to [facility] Emergency Room due to ?abnormal labs. The patient reports that he was taken off his diuretics about 3 weeks ago due to worsening renal dysfunction by outpatient labs. Since that time, he has noticed increasing lower extremity edema and swelling in association with abdominal distension. The swelling edema has progressed to the point where he is having paroxysmal nocturnal dyspnea and a 6 lb weight gain just in the last week. As the symptoms continued to progress he came to the emergency room for further assessment. Workup and evaluation emergency room demonstrated the patient be hemodynamically stable but had clinical signs/symptoms of a CHF exacerbation. His troponins were mildly elevated without a significant rise her fall and he had no other associated symptoms with regard to chest pain palpitations orthopnea, or shortness of breath at rest. His initial blood work showed labs consistent with his known history of chronic kidney disease with his creatinine somewhat better than what it was on his last hospitalization here on discharge. His chest x-ray did show some mild pulmonary edema and his BNP was elevated as well. He was initiated on IV diuretic therapy and subsequent admitted to the hospital for further evaluation therapy. Since his admission, his creatinine is actually improved some and his clinical symptoms swelling/edema and abdominal distension have improved with the initiation of diuretic therapy. Renal consultation was requested due to his chronic kidney disease. The patient normally foll
--- NOTE | 2023-08-22 15:46 | PM.IMPN ---
Progress Note: A&P Assessment and Plan (1) Acute exacerbation of CHF (congestive heart failure): Qualifiers: Heart failure type: diastolic Qualified Code(s): I50.33 - Acute on chronic diastolic (congestive) heart failure Code(s): I50.9 - Heart failure, unspecified Status: Acute Assessment and Plan: Order ECHO Daily weights BNP and BMP IV lasix 20 mg daily consulted cardiology and nephrology (2) Adult hypothyroidism: Code(s): E03.9 - Hypothyroidism, unspecified Status: Acute Assessment and Plan: continue pts levothyroxine order tsh (3) Chronic kidney disease, stage 4 (severe): Code(s): N18.4 - Chronic kidney disease, stage 4 (severe) Status: Acute Assessment and Plan: Watch UO Watch kidney function Continue lasix cautiously Hold bumex and ARB and spironolactone for now (4) Atrial fibrillation: Qualifiers: Atrial fibrillation type: paroxysmal Qualified Code(s): I48.0 - Paroxysmal atrial fibrillation Code(s): I48.91 - Unspecified atrial fibrillation Status: Acute Assessment and Plan: History of AF continue amiodarone, bb and anticoagulation with WARFARIN cardiology consulted Plan DVT PRop: warfarin Subjective Date/time seen: 08/22/23 15:46 Interval history: 78-year-old male with history of CKD, insulin-dependent diabetes, CHF, hypertension, atrial fibrillation chronically anticoagulated on warfarin reports for evaluation for bilateral lower extremity edema, abdominal swelling and difficulty breathing x2 days.? Reports associated orthopnea? And 6 lb weight gain in the past week. Pt states his PCP is DR Patel from [facility] and cardiology is also from [facility] was told to stop his diuretics because his creat was going up. Pt noticed weight gain over 6 lbs and abdominal distension. Pt is diuresis well with iv lasix creat is 2.7 which looks like his baseline oral diuretics have been stopped and ARB kidney function looks better believe i can restart after nephrology evaluation. Hopeful dc in 1-2 days time Review of Systems Review of Systems: Swelling improving Exam Const: General: cooperative, healthy appearing and overweight; No in distress Nutritional Appearance: overweight Orientation/consciousness: oriented to person HENMT: Head: normal to inspection Resp: Effort & Inspection: no respiratory distress Auscultation: no rhonchi and no wheezes Cardio: Rate: regular rate Rhythm: regular rhythm GI: Inspection: normal to inspection Auscultation: normal bowel sounds Neuro: General: oriented to person Objective Data Vital Signs Vital Signs: Vital Signs - 24 hr 08/21/23 15:53 08/21/23 15:57 08/21/23 16:00 Temperature 36.3 C L Pulse Rate 101 H 96 Respiratory Rate 20 Blood Pressure 148/128 H Pulse Oximetry 97 Oxygen Delivery Room Air 08/21/23 18:00 08/21/23 19:55 08/21/23 20:00 Temperature 36.7 C Pulse Rate 81 93 85 Respiratory Rate 20 Blood Pressure 99/61 L Pulse Oximetry 96 Oxygen Delivery 08/21/23 20:00 08/21/23 22:00 08/21/23 23:42 Temperature Pulse Rate 77 81 Respiratory Rate Blood Pressure Pulse Oximetry Oxygen Delivery Room Air 08/21/23 23:43 08/21/23 23:51 08/22/23 02:00 Temperature 36.4 C Pulse Rate 82 83 Respiratory Rate 20 Blood Pressure 118/59 L Pulse Oximetry 96 Oxygen Delivery Room Air 08/22/23 04:39 08/22/23 04:00 08/22/23 04:00 Temperature 36.5 C Pulse Rate 98 98 Respiratory Rate 20 Blood Pressure 97/68 L Pulse Oximetry 93 Oxygen Delivery Room Air 08/22/23 06:00 08/22/23 07:47 08/22/23 09:06 Temperature 36.7 C Pulse Rate 100 71 90 Respiratory Rate 20 Blood Pressure 126/83 Pulse Oximetry 98 Oxygen Delivery 08/22/23 09:07 08/22/23 08:00 08/22/23 10:00 Temperature Pulse Rate 90 90 86 Respiratory Rate Blood Pressure Pulse Oximetry Oxygen De
[2023-08-22 16:22] LABS: Glucose Point of Care 295 mg/dl (65-105)
[2023-08-22] MEDS: INSULIN ASPART (*BKC) 100 UNITS/ML SUB-Q (17:59)
[2023-08-22] MEDS: WARFARIN (*PBKC) 5 MG TABLET PO (18:00)
[2023-08-22 21:15] LABS: Glucose Point of Care 234 mg/dl (65-105)
[2023-08-22] MEDS: INSULIN GLARGINE (*BKC) 100 UNITS/ML 15 UNITS SUB-Q (21:30)
[2023-08-23] VITALS (12 sets, daily range): BP systolic 116–123; BP diastolic 68–88; PULSE 73–98; RESP 14–18; TEMP 36.1–36.9; O2SAT 97–98
[2023-08-23] MEDS: LEVOTHYROXINE SODIUM 88 MCG TABLET PO (06:08)
[2023-08-23] MEDS: ALBUTEROL SULFATE NEB 2.5 MG/3 ML INH INHALATION ×2 (06:15→11:10)
[2023-08-23 06:45] LABS: Basophils Absolute Auto 0.1 K/mm3 (0.0-0.1); Basophils Percent Auto 0.6 % (0.2-1.2); Eosinophils Absolute Auto 0.4 K/mm3 (0-0.3); Eosinophils Percent Auto 4.7 % (0-4.4); Hemoglobin 9.4 g/dL (14.0-18.0); Immature Granulocyte Absolute 0.03 K/mm3 (0.00-0.031); Immature Granulocyte Percent A 0.4 % (0-0.5); Lymphocytes Absolute Auto 1.97 K/mm3 (0.9-3.2); Lymphocytes Percent Auto 24.3 % (18.3-44.2); Mean Corpuscular HGB Conc 30.3 g/dl (32-36); Mean Corpuscular Hemoglobin 31.8 pg (26-34); Mean Corpuscular Volume 104.7 fl (80-100); Mean Platelet Volume 10.7 fl (7.4-10.4); Monocytes Absolute Auto 0.5 K/mm3 (0.1-0.6); Monocytes Percent Auto 6.7 % (2.6-8.5); Neutrophils Absolute Auto 5.1 K/mm3 (1.3-6.7); Neutrophils Percent Auto 63.3 % (45.5-73.1); Platelet Count Result 258 k/mm3 (150-375); Red Blood Count 2.96 M/mm3 (4.6-6.20); Red Cell Distribution Width 16.3 % (11.5-14.5); White Blood Count 8.1 K/mm3 (4.5-10.0)
[2023-08-23 06:54] LABS: Alanine Aminotransferase 18 U/L (6-50); Albumin Level 3.6 g/dL (3.5-5.1); Alkaline Phosphatase 92 U/L (38-126); Anion Gap 6 mmol/L (8-16); Aspartate Amino Transferase 22 U/L (17-59); Bilirubin,Total 0.6 mg/dL (0.2-1.3); Blood Urea Nitrogen 66 mg/dL (9-20); Calcium 9.2 mg/dL (8.4-10.2); Carbon Dioxide 27 mmol/L (22-30); Chloride 105 mmol/L (98-107); Estimated CRCL calculation 16 ml/min; Estimated Glomerular Filt Rate 24; Glucose 164 mg/dL (65-110); Potassium 3.7 mmol/L (3.4-5.0); Sodium 138 mmol/L (137-145)
[2023-08-23 07:05] LABS: Creatine Kinase 76 U/L (55-170)
[2023-08-23 07:44] LABS: Glucose Point of Care 185 mg/dl (65-105)
[2023-08-23 07:46] LABS: Prothrombin Time 24.1 Seconds (11.1-14.7)
[2023-08-23] MEDS: FUROSEMIDE INJ 40 MG/4 ML VIAL 20 MG IV PUSH (08:53)
[2023-08-23] MEDS: PANTOPRAZOLE 40 MG TABLET PO (08:54)
[2023-08-23] MEDS: ISOSORBIDE MONONITRATE 60 MG TAB.ER.24H 120 MG PO (08:54)
[2023-08-23] MEDS: CHOLECALCIFEROL 1,000 UNITS TABLET 2000 UNITS PO (08:54)
[2023-08-23] MEDS: METOPROLOL SUCCINATE EXT REL 25 MG TABCR PO (08:54)
[2023-08-23] MEDS: CLOPIDOGREL BISULFATE 75 MG TABLET PO (08:54)
[2023-08-23] MEDS: CALCIUM CARBONATE (OSCAL) 500 MG TABLET PO (08:55)
[2023-08-23] MEDS: FERROUS SULFATE 325 MG TABLET DR PO (08:55)
[2023-08-23] MEDS: MAGNESIUM OXIDE 400 MG TABLET PO (08:55)
[2023-08-23] MEDS: hydrALAZINE HCL 50 MG TABLET PO ×2 (08:55→12:16)
[2023-08-23] MEDS: AMIODARONE HCL 200 MG TABLET PO (08:56)
--- NOTE | 2023-08-23 08:57 | PM.PNCARD ---
Progress Note: A&P Assessment and Plan (1) Elevated troponin: Code(s): R79.89 - Other specified abnormal findings of blood chemistry Status: Acute Assessment and Plan: Not related ACS. No significant rise or fall and no acute ST or T-wave abnormalities. (2) CKD (chronic kidney disease): Qualifiers: Chronic kidney disease stage: unspecified stage Qualified Code(s): N18.9 - Chronic kidney disease, unspecified Code(s): N18.9 - Chronic kidney disease, unspecified Status: Acute (3) Acute on chronic diastolic (congestive) heart failure: Code(s): I50.33 - Acute on chronic diastolic (congestive) heart failure Status: Acute Assessment and Plan: worsened by recent discontinuation of diuretics. He has severe cardiomyopathy which appears to be ischemic in etiology. Will DC IV furosemide after this morning's dose. Resume home dose Bumex 2 mg p.o. daily. Nephrology also to help guide diuretic therapy. Intake and output, daily weights will be ordered and performed. Continue isosorbide, hydralazine, metoprolol and add back losartan when able Okay for discharge from my perspective and close follow-up with Dr. Wheeler (4) Atrial fibrillation: Qualifiers: Atrial fibrillation type: paroxysmal Qualified Code(s): I48.0 - Paroxysmal atrial fibrillation Code(s): I48.91 - Unspecified atrial fibrillation Status: Acute Assessment and Plan: Rate controlled and on anticoagulation with warfarin. Goal INR between 2 and 3. Daily INRs while in hospital. 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 Wheeler Subjective Date/time seen: 08/23/23 08:57 Interval history: 78-year-old male with history of CKD, insulin-dependent diabetes, CHF, hypertension, atrial fibrillation chronically anticoagulated on warfarin reports for evaluation for bilateral lower extremity edema, abdominal swelling and difficulty breathing x2 days.? Reports associated orthopnea? And 6 lb weight gain in the past week. Pt states his PCP is DR Patel from [facility] and cardiology is also from [facility] was told to stop his diuretics because his creat was going up. Pt noticed weight gain over 6 lbs and abdominal distension. Date of service 08/23/2023: Feels much better. Feels less distended. Swelling is better. Breathing is better. Wants to go home. No chest pain Review of Systems Review of Systems: All systems reviewed & are unremarkable except as noted in HPI and below Constitutional: Constitutional: Denies body ache(s) and Denies excessive sweating Eyes: Eyes: Denies blurry vision ENT: Reports Normal hearing present Cardiovascular: Cardiovascular: Denies chest pain, Denies leg edema and Denies dyspnea Respiratory: Respiratory: Denies dyspnea Gastrointestinal: Gastrointestinal: Reports bloating Genitourinary: Genitourinary: Denies hematuria Musculoskeletal: Musculoskeletal: Denies back pain Integumentary/Breasts: Skin/Breast: Denies dry skin Neurologic: Reports Normal hearing present and Denies Abnormal speech present Psychiatric: Psychiatric: Denies anxiety Endocrine: Endocrine: Denies excessive sweating Hematologic/Lymphatic: Hematologic/Lymphatic: Denies easy bleeding Allergic/Immunologic: Allergic/Immunologic: Denies GI upset with certain foods Exam Narrative: Awake alert and oriented appears stated age Const: General: comfortable and no acute distress HENMT: Face/Nose/Sinus: Normal nares present Mouth: Yes moist mucous membranes Eyes: General: appearance normal, both eyes and all related structures Sclera: sclerae normal Neck: Neck: supple and no JVD Carotids: no bruits Chest: Other: No reproducible chest wall pain to palpation Resp: Effort &
--- NOTE | 2023-08-23 11:28 | PC.NURSE ---
called to update career transition specialist Elba with PCP.
[2023-08-23 11:56] LABS: Glucose Point of Care 248 mg/dl (65-105)
[2023-08-23] MEDS: INSULIN ASPART (*BKC) 100 UNITS/ML SUB-Q (12:15)
--- NOTE | 2023-08-23 12:55 | PM.DS ---
DS: Admitting Diagnosis Discharge Date 08/23/2023 Admitting Diagnosis Weight gain DS: Discharge Diagnosis Discharge Diagnosis (1) Acute exacerbation of CHF (congestive heart failure): Qualifiers: Heart failure type: diastolic Qualified Code(s): I50.33 - Acute on chronic diastolic (congestive) heart failure Code(s): I50.9 - Heart failure, unspecified Status: Acute Assessment and Plan: IV lasix 20 mg daily consulted cardiology and nephrology . Complete two-dimensional, color flow and Doppler transthoracic echocardiogram is performed. ? 2. Left ventricular chamber dimension is mildly enlarged. ? 3. Left ventricular systolic function is severely reduced, estimated at 20-25%. ? 4. There is mildly increased left ventricular wall thickness. ? 5. The left ventricular diastolic function is grade I diastolic dysfunction ?He has severe cardiomyopathy which appears to be ischemic in etiology. Continue isosorbide, hydralazine, metoprolol and add back losartan and bumex nephrology ok with these diuretics (2) Adult hypothyroidism: Code(s): E03.9 - Hypothyroidism, unspecified Status: Acute Assessment and Plan: continue pts levothyroxine (3) Chronic kidney disease, stage 4 (severe): Code(s): N18.4 - Chronic kidney disease, stage 4 (severe) Status: Chronic Assessment and Plan: Pt creat is 2.6 which is his baseline Renal us was nl 1. Normal kidney sizes. No hydronephrosis. Pt having good UO Ok to Dc on diuretics (4) Atrial fibrillation: Qualifiers: Atrial fibrillation type: paroxysmal Qualified Code(s): I48.0 - Paroxysmal atrial fibrillation Code(s): I48.91 - Unspecified atrial fibrillation Status: Acute Assessment and Plan: History of AF continue amiodarone, bb and anticoagulation with WARFARIN cardiology consulted Plan DS: Summary Hospital Course Hospital Course: 78-year-old male with history of CKD, insulin-dependent diabetes, CHF, hypertension, atrial fibrillation chronically anticoagulated on warfarin reports for evaluation for bilateral lower extremity edema, abdominal swelling and difficulty breathing x2 days.? Reports associated orthopnea? And 6 lb weight gain in the past week. Pt states his PCP is DR Patel from [facility] and cardiology is also from [facility] was told to stop his diuretics because his creat was going up. Pt noticed weight gain over 6 lbs and abdominal distension. Pt is diuresis well with iv lasix creat is 2.7 which looks like his baseline oral diuretics have been stopped and ARB kidney function looks better believe i can restart after nephrology evaluation. He has severe cardiomyopathy which appears to be ischemic in etiology. Continue isosorbide, hydralazine, metoprolol and add back losartan and bumex nephrology ok with these diuretics Follow up with cardiology Time Spent with Patient Time attestation: Total time spent providing and/or coordinating discharge services:40 minutes on day of DC Exam Const: General: cooperative, healthy appearing and overweight; No in distress Nutritional Appearance: overweight Orientation/consciousness: oriented to person HENMT: Head: normal to inspection Resp: Effort & Inspection: no respiratory distress Auscultation: no rhonchi and no wheezes Cardio: Rate: regular rate Rhythm: regular rhythm GI: Inspection: normal to inspection Auscultation: normal bowel sounds Neuro: General: oriented to person DS: Data Data Completed and Pending Labs on day of discharge: Labs from last 24 hours 08/23/23 08/23/23 08/23/23 11:47 07:31 06:07 WBC 8.1 RBC 2.96 L Hgb 9.4 L Hct 31.0 L MCV 104.7 H MCH 31.8 MCHC 30.3 L RDW 16.3 H Plt Count 258 MPV 10.7 H Immature Gran % (Auto) 0.4 Neut % (Auto) 63.3 Lymph % (Auto) 24.3 Dougherty % (Auto) 6.7 Eos % (Auto) 4.7 H Baso % (Auto) 0.6 Lymph # (Auto) 1.97 Dougherty #
--- NOTE | 2023-08-23 16:59 | PC.NURSE ---
iv out, patients son picked up in private vehicle, taken down by wheelchair. denies pain, all d/c papers discussed, denies any questions. all belongings with patient at d/c.
== END 2023-08-23 16:25 | disposition home or self-care (01) ==
LOC: ANHED 17:20 → ANHIMU 21:27 → ANH3MEDSUR 08-22 23:35
PROVIDERS: Family Medicine; Internal Medicine Nephrology; Preventive Medicine Aerospace Medicine; Admitting Provider Internal Medicine; Emergency Provider Physician Assistant; PCP Registered Nurse; Visit Provider Internal Medicine
DX: I13.0 Hypertensive heart and chronic kidney disease with heart failure and stage 1 through stage 4 chronic kidney disease, or unspecified chronic kidney disease (principal); E11.22 Type 2 diabetes mellitus with diabetic chronic kidney disease; N18.9 Chronic kidney disease, unspecified; I50.33 Acute on chronic diastolic (congestive) heart failure; E03.9 Hypothyroidism, unspecified; I48.0 Paroxysmal atrial fibrillation; R06.01 Orthopnea; R63.5 Abnormal weight gain; R79.89 Other specified abnormal findings of blood chemistry; Z68.34 Body mass index [BMI] 34.0-34.9, adult; Z95.5 Presence of coronary angioplasty implant and graft; I25.10 Atherosclerotic heart disease of native coronary artery without angina pectoris; I25.2 Old myocardial infarction; G47.33 Obstructive sleep apnea (adult) (pediatric); R14.0 Abdominal distension (gaseous); I08.3 Combined rheumatic disorders of mitral, aortic and tricuspid valves; J90 Pleural effusion, not elsewhere classified; R94.31 Abnormal electrocardiogram [ECG] [EKG]; R11.2 Nausea with vomiting, unspecified; I27.20 Pulmonary hypertension, unspecified; Z90.49 Acquired absence of other specified parts of digestive tract; Z87.891 Personal history of nicotine dependence; Z66 Do not resuscitate; Z79.02 Long term (current) use of antithrombotics/antiplatelets; Z79.4 Long term (current) use of insulin; Z79.01 Long term (current) use of anticoagulants; Z79.82 Long term (current) use of aspirin; Z79.51 Long term (current) use of inhaled steroids; Z79.84 Long term (current) use of oral hypoglycemic drugs; Z79.899 Other long term (current) drug therapy; Z83.3 Family history of diabetes mellitus
CPT/HCPCS: 36415; 71046; 76775; 80053; 82550; 82948; 83880; 84484; 85025; 85027; 85610; 85730; 93005; 93306; 94640; 96374; 96376; 97110; 97116; 97161; 99285; A9270; G0378; J1815; J1940

== ENCOUNTER 2023-09-11 10:42 | Outpatient (CLI) | payer MEDICARE, MEDICAID, SELFPAY ==
[2023-09-11 11:39] LABS: Hematocrit 33.2 % (42.0-52.0); Hemoglobin 9.9 g/dL (14.0-18.0); Mean Corpuscular HGB Conc 29.8 g/dl (32-36); Mean Corpuscular Hemoglobin 31.2 pg (26-34); Mean Corpuscular Volume 104.7 fl (80-100); Mean Platelet Volume 10.7 fl (7.4-10.4); Platelet Count Result 275 k/mm3 (150-375); Red Blood Count 3.17 M/mm3 (4.6-6.20); White Blood Count 9.8 K/mm3 (4.5-10.0)
[2023-09-11 12:02] LABS: Albumin Level 3.7 g/dL (3.5-5.1); Anion Gap 12 mmol/L (8-16); Blood Urea Nitrogen 65 mg/dL (9-20); Calcium 8.9 mg/dL (8.4-10.2); Carbon Dioxide 25 mmol/L (22-30); Chloride 106 mmol/L (98-107); Estimated Glomerular Filt Rate 24; Glucose 164 mg/dL (65-110); Phosphorus 3.4 mg/dL (2.5-4.5); Potassium 3.5 mmol/L (3.4-5.0); Sodium 143 mmol/L (137-145)
== END 2023-09-11 10:43 | disposition home or self-care (01) ==
PROVIDERS: PCP Registered Nurse; Visit Provider Internal Medicine Nephrology
DX: N18.9 Chronic kidney disease, unspecified (principal)
CPT/HCPCS: 36415; 80069; 85027

== ENCOUNTER 2023-09-16 17:19 | Inpatient (IN) | payer MEDICARE, MEDICAID, SELFPAY ==
[2023-09-16] VITALS (9 sets, daily range): BP systolic 108–136; BP diastolic 64–86; PULSE 72–102; RESP 15–18; TEMP 36.4–36.7; O2SAT 96–100
--- NOTE | ~2023-09-16 | XR_ITS ---
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 RESULT: Lines, tubes, and devices: Coronary stent. Lungs and pleura: Lordotic positioning. Low volumes in the lateral view. Moderate diffuse reticular opacities with cuffing. Posterior costophrenic angle blunting. Cardiomediastinal silhouette: Stable. Other: No acute osseous or upper abdominal finding. IMPRESSION: Moderate interstitial edema. Trace bilateral effusions. Reviewed, dictated and finalized at location K. DEHYDRATOR OPERATOR
--- NOTE | 2023-09-16 17:32 | ECG_ITS ---
Measurements Intervals [place] Rate: 74 P: -32 DC: 255 QRS: -7 QRSD: 120 T: 20 QT: 459 QTc: 511 Interpretive Statements ATRIAL FIBRILLATION INTRAVENTRICULAR CONDUCTION DELAY LEFT VENTRICULAR HYPERTROPHY WITH ST-T CHANGE ANTEROSEPTAL INFARCT, AGE INDETERMINATE ABNORMAL ECG COMPARED TO ECG 08/20/2023 15:38:22 MYOCARDIAL INFARCT NOW PRESENT Electronically Signed On 09-16-2023 20:26:32 RESTROOMS OR LOUNGES MAID by Raghav Robins D.O.
[2023-09-16 17:50] LABS: Basophils Absolute Auto 0.1 K/mm3 (0.0-0.1); Basophils Percent Auto 0.7 % (0.2-1.2); Eosinophils Absolute Auto 0.4 K/mm3 (0-0.3); Eosinophils Percent Auto 4.6 % (0-4.4); Hematocrit 31.3 % (42.0-52.0); Hemoglobin 9.6 g/dL (14.0-18.0); Immature Granulocyte Absolute 0.04 K/mm3 (0.00-0.031); Immature Granulocyte Percent A 0.5 % (0-0.5); Lymphocytes Absolute Auto 1.46 K/mm3 (0.9-3.2); Lymphocytes Percent Auto 16.7 % (18.3-44.2); Mean Corpuscular HGB Conc 30.7 g/dl (32-36); Mean Corpuscular Hemoglobin 31.7 pg (26-34); Mean Corpuscular Volume 103.3 fl (80-100); Mean Platelet Volume 10.9 fl (7.4-10.4); Monocytes Absolute Auto 0.6 K/mm3 (0.1-0.6); Neutrophils Absolute Auto 6.2 K/mm3 (1.3-6.7); Neutrophils Percent Auto 70.5 % (45.5-73.1); Platelet Count Result 234 k/mm3 (150-375); Red Blood Count 3.03 M/mm3 (4.6-6.20); Red Cell Distribution Width 16.5 % (11.5-14.5); White Blood Count 8.7 K/mm3 (4.5-10.0)
[2023-09-16 18:01] LABS: Alanine Aminotransferase 17 U/L (6-50); Albumin Level 3.8 g/dL (3.5-5.1); Alkaline Phosphatase 102 U/L (38-126); Anion Gap 10 mmol/L (8-16); Aspartate Amino Transferase 26 U/L (17-59); Bilirubin,Total 0.7 mg/dL (0.2-1.3); Blood Urea Nitrogen 69 mg/dL (9-20); Carbon Dioxide 27 mmol/L (22-30); Chloride 103 mmol/L (98-107); Estimated CRCL calculation 30 ml/min; Estimated Glomerular Filt Rate 25; Glucose 193 mg/dL (65-110); Potassium 3.7 mmol/L (3.4-5.0); Sodium 140 mmol/L (137-145)
[2023-09-16 18:04] LABS: INR 3.1; Prothrombin Time 33.9 Seconds (11.1-14.7)
[2023-09-16 18:05] LABS: Partial Thromboplastin Time 45.3 SECONDS (22.3-36.8)
--- NOTE | 2023-09-16 18:07 | ED.SOB ---
HPI - SOB/Dyspnea General Chief Complaint: Shortness of Breath/Dyspnea Stated Complaint: b/l le edema and epistaxis x 1 week Time Seen by Provider: 09/16/23 17:45 History of Present Illness HPI Narrative: Patient is a 78-year-old male with history of heart failure, AFib, anticoagulated on Coumadin here with lower extremity edema and shortness of breath. Patient states that for the last 1 week has had increasing swelling in his bilateral lower extremities. He notes he was recently admitted for heart failure, is currently taking bumex. He was also recently diagnosed with covid a couple of weeks ago. He notes some continued shortness of breath and cough since being diagnosed with covid. He also notes for the last week he has had intermittent nose bleeds, not currently bleeding now. He has had elevated INR throughout the week when checked with INR >4. Today he held his coumadin due to the nose bleeds. No fever or chills. 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 No chest pain. Related Data Home Medications Medication Instructions Recorded Confirmed clopidogrel 75 mg tablet 75 mg PO DAILY 04/12/21 09/12/23 insulin detemir U-100 100 unit/mL 15 unit subcut HS 04/12/21 09/12/23 subcutaneous solution (Levemir U-100 Insulin) isosorbide mononitrate 120 mg 120 mg PO DAILY 04/12/21 09/12/23 tablet,extended release 24 hr acetaminophen 325 mg tablet 325 mg PO Q6H PRN Pain 01/27/22 09/12/23 alirocumab 150 mg/mL subcutaneous 150 mg subcut MONTHLY 01/27/22 09/12/23 pen injector (Praluent Pen) amiodarone 200 mg tablet 200 mg PO DAILY 01/27/22 09/12/23 hydralazine 100 mg tablet 50 mg PO TID 01/27/22 09/12/23 levothyroxine 112 mcg tablet 88 mcg PO DAILY 01/27/22 09/12/23 (Euthyrox) losartan 50 mg tablet 25 mg PO DAILY 01/27/22 09/12/23 magnesium oxide 400 mg (241.3 mg 400 mg PO BID 01/27/22 09/12/23 magnesium) tablet metoprolol succinate 25 mg 25 mg PO DAILY 01/27/22 09/12/23 tablet,extended release 24 hr pantoprazole 40 mg tablet,delayed 40 mg PO DAILY 01/27/22 09/12/23 release warfarin 5 mg tablet 5 mg PO DIRECTED 01/27/22 09/12/23 allopurinol 300 mg tablet 300 mg PO DAILY 12/29/22 09/12/23 glipizide 10 mg tablet 10 mg PO BID 12/29/22 09/12/23 calcium 500 mg tablet 500 mg PO BID 02/17/23 09/12/23 cholecalciferol (vitamin D3) 50 50 mcg PO DAILY 02/17/23 09/12/23 mcg (2,000 unit) tablet (Vitamin D3) ferrous sulfate 325 mg (65 mg 325 mg PO DAILY 02/17/23 09/12/23 iron) tablet nitroglycerin 0.4 mg sublingual 0.4 mg sublingual Q5M PRN Chest 02/17/23 09/12/23 tablet Pain bumetanide 2 mg tablet 2 mg PO DAILY 08/20/23 09/12/23 doxazosin 2 mg tablet 2 mg PO QHS 09/11/23 09/12/23 fluticasone propionate 50 1 spray intranasal DAILY 09/11/23 09/12/23 mcg/actuation nasal spray,suspension hydrocodone 5 mg-acetaminophen 325 1 tablet PO Q6H PRN 09/11/23 09/12/23 mg tablet ondansetron 8 mg disintegrating 4 mg PO Q8H PRN Nausea And Vomiting 09/11/23 09/12/23 tablet pilocarpine HCl 5 mg tablet 5 mg PO TID 09/11/23 09/12/23 saliva substitute combo no.9 10 ml mucous membrane .PRN 09/11/23 09/12/23 (Biotene Dry Mouth Oral Rinse mouthwash) Allergies Allergy/AdvReac Type Severity Reaction Status Date / Time exenatide [From Byetta] AdvReac Gastrointestinal Verified 09/11/23 09:28 Upset [id number] Reductase AdvReac Cramping Verified 09/11/23 09:28 Inhibitor of the [Rqnmxlr-Wnf-Pfb Reductase Muscles Inhibitor] Review of Systems Review of Systems: All systems reviewed & are unremarkable except as noted in HPI and below PMFSH Past Medical History Medical History Aortic stenosis, mild Atrial fib/flutter, transient Atrial fibrillation Chronic anticoagulation Chronic anticoagulation Chron
[2023-09-16 18:22] LABS: NT Pro B Type Natriuretic Pept 13200 pg/mL (19.9-100); Troponin I 0.039 ng/mL (0.000-0.034)
[2023-09-16 19:02] LABS: Influenza A QL RT-PCR Negative (Negative); Influenza B QL RT-PCR Negative (Negative); RSV RNA, RT-PCR Negative (Negative); SARS-CoV-2 RNA PCR Negative (Negative)
[2023-09-16] MEDS: BUMETANIDE INJ 1 MG/4 ML VIAL 2 MG IV PUSH (20:36)
--- NOTE | 2023-09-16 20:42 | PC.NURSE ---
Patient started to bleed out of his nose. Patient states this occurs frequently. Nasal clamp applied. Patients primary nurse notified.
[2023-09-16] MEDS: OXYMETAZOLINE HCL 0.05% NAS 15 ML BTL (*BKC) 1 SPRAY NASAL (21:21)
--- NOTE | 2023-09-16 21:25 | PM.IMHP ---
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 The patient was last hospitalized at the end of July due to heart failure. He reports that initially he felt better on discharge but has had increasing lower extremity swelling over the last couple of weeks and feels as if his abdomen is distended. He is reporting symptoms of early satiety. He denies any chest pain or palpitations. He has been having intermittent epistaxis for the last week. He has a home INR machine is INR is greater than 4. He skipped 1 day of his Coumadin and restarted dose at a lower dose. Today he did not take his Coumadin. His INR today was down to 3.1. Patient was supposed to follow-up with Dr. Brandon tomorrow after he had repeat labs done as outpatient for possible adjustments in his diuretic therapy. Patient has been having progressive shortness of breath over this time period as well. He denies any chest pain. He has not had any significant cough except for when associated with his epistaxis. He has chronic black stools due to iron supplementation. He reports that his stools have been a little bit hard but his last bowel movement was this morning. He denies any abdominal pain he does reports abdominal fullness. He reports a decreased amount of urine output he is unsure if he is emptying his bladder completely. He denies any dysuria. The patient's biggest complaint at the time my evaluation patient was evaluated on the ER stretcher was that his butt hurt. The patient reports that since he has been laying in the same position for so long that his right leg is now feeling numb. He can move the leg in does feel gross tactile sensation at the time my evaluation. In the ER patient was noted to be in AFib which chronic. His rate was controlled. He was noted to develop some epistaxis Souza was in the ER and did receive some Afrin and a clamp was applied which stopped his nose bleed. The patient also received Bumex. He has had multiple voids but reports that they are smaller in amount any usually has. He has chronic urinary frequency. He denies dysuria. Source of information is from patient who is of fair to good historian and review of past medical records and ER physician report. External records also reviewed. Patient was seen and examined at bedside in all questions were answered. Review of Systems Review of Systems: 12 systems were reviewed with pertinent positives and negatives per HPI. Except as documented in the HPI, all other systems were reviewed and are negative. [facility] Past Medical History Medical History (Updated 09/17/23 @ 00:09 by Kendra Braun, ) Aortic stenosis, mild Atrial fibrillation Chronic anticoagulation Chronic kidney disease, stage 4 (severe) Combined systolic and diastolic congestive heart failure He follows with Dr. 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
--- NOTE | 2023-09-16 23:08 | ADMGEN ---
This patient, Nigel Wang, was admitted to Medical Room 345-01. Patient/family oriented to hospital policies and general routines including ID bracelet, bed and alarms, visiting hours, pain management, procedures, bathroom and other care routines, personal items, smoking policy, room service/diet, and visiting hours. Information on how to activate the Rapid Response Team has been discussed. Patient/Family are encouraged to report perceived risks to care and to ask questions if they do not understand what they are told or what they should do.
[2023-09-17] VITALS (10 sets, daily range): BP systolic 100–118; BP diastolic 63–69; PULSE 74–102; RESP 18–20; TEMP 36.3–36.9; O2SAT 94–97
[2023-09-17 06:02] LABS: Hematocrit 32.2 % (42.0-52.0); Hemoglobin 9.9 g/dL (14.0-18.0); Mean Corpuscular HGB Conc 30.7 g/dl (32-36); Mean Corpuscular Hemoglobin 32.1 pg (26-34); Mean Corpuscular Volume 104.5 fl (80-100); Mean Platelet Volume 10.9 fl (7.4-10.4); Platelet Count Result 233 k/mm3 (150-375); Red Blood Count 3.08 M/mm3 (4.6-6.20); Red Cell Distribution Width 16.4 % (11.5-14.5); White Blood Count 8.5 K/mm3 (4.5-10.0)
[2023-09-17] MEDS: LEVOTHYROXINE SODIUM 88 MCG TABLET PO (06:05)
[2023-09-17] MEDS: SALIVA SUBSTITUTE RINSE 473 ML BOTTLE 10 ML MUCOUS MEM (06:06)
[2023-09-17 06:14] LABS: Anion Gap 13 mmol/L (8-16); Blood Urea Nitrogen 66 mg/dL (9-20); Calcium 9.1 mg/dL (8.4-10.2); Carbon Dioxide 25 mmol/L (22-30); Chloride 103 mmol/L (98-107); Estimated CRCL calculation 31 ml/min; Estimated Glomerular Filt Rate 26; Glucose 185 mg/dL (65-110); Potassium 3.6 mmol/L (3.4-5.0); Sodium 141 mmol/L (137-145)
[2023-09-17 06:28] LABS: INR 2.8; Prothrombin Time 31.6 Seconds (11.1-14.7)
[2023-09-17 08:44] LABS: Glucose Point of Care 156 mg/dl (65-105)
[2023-09-17] MEDS: BUMETANIDE INJ 1 MG/4 ML VIAL 2 MG IV PUSH ×2 (09:35→17:22)
[2023-09-17] MEDS: POTASSIUM CHLORIDE 20 MEQ ER TABLET PO (09:35)
[2023-09-17] MEDS: ASCORBIC ACID 500 MG TABLET 1000 MG PO (09:35)
[2023-09-17] MEDS: LOSARTAN POTASSIUM 25 MG TABLET PO (09:35)
[2023-09-17] MEDS: PANTOPRAZOLE 40 MG TABLET PO (09:35)
[2023-09-17] MEDS: hydrALAZINE HCL 50 MG TABLET PO ×3 (09:35→17:22)
[2023-09-17] MEDS: CALCIUM CARBONATE (OSCAL) 500 MG TABLET PO ×2 (09:35→17:22)
[2023-09-17] MEDS: allopurinoL 300 MG TABLET PO (09:36)
[2023-09-17] MEDS: FLUTICASONE PROPIONATE 0.05% NA SPR 16 GM BTL (*BKC) 1 SPRAY NASAL (09:36)
[2023-09-17] MEDS: SPIRONOLACTONE 25 MG TABLET PO (09:36)
[2023-09-17] MEDS: MAGNESIUM OXIDE 400 MG TABLET PO ×2 (09:36→17:22)
[2023-09-17] MEDS: CLOPIDOGREL BISULFATE 75 MG TABLET PO (09:36)
[2023-09-17] MEDS: ISOSORBIDE MONONITRATE 60 MG TAB.ER.24H 120 MG PO (09:36)
[2023-09-17] MEDS: SACCHAROMYCES BOULARDII 250 MG CAPSULE PO ×2 (09:37→17:22)
[2023-09-17] MEDS: TRIAMCINOLONE ACET 0.5% OINT 15 GM TUBE 1 APPLIC TOPICAL ×3 (09:37→17:22)
[2023-09-17] MEDS: METOPROLOL SUCCINATE EXT REL 25 MG TABCR PO (09:40)
[2023-09-17] MEDS: AMIODARONE HCL 200 MG TABLET PO (09:40)
[2023-09-17 12:03] LABS: Glucose Point of Care 213 mg/dl (65-105)
[2023-09-17] MEDS: INSULIN ASPART (*BKC) 100 UNITS/ML SUB-Q ×2 (13:03→20:32)
[2023-09-17] MEDS: FERROUS SULFATE 325 MG TABLET DR PO (13:05)
[2023-09-17 16:54] LABS: Glucose Point of Care 168 mg/dl (65-105)
--- NOTE | 2023-09-17 18:23 | PM.IMPN ---
Progress Note: A&P Assessment and Plan (1) Acute exacerbation of CHF (congestive heart failure): Qualifiers: Heart failure type: combined systolic and diastolic Qualified Code(s): I50.43 - Acute on chronic combined systolic (congestive) and diastolic (congestive) heart failure Code(s): I50.9 - Heart failure, unspecified Status: Acute (2) Epistaxis, recurrent: Code(s): R04.0 - Epistaxis Status: Acute (3) Hypothyroidism: Qualifiers: Hypothyroidism type: unspecified Qualified Code(s): E03.9 - Hypothyroidism, unspecified Code(s): E03.9 - Hypothyroidism, unspecified Status: Acute (4) Hypertension: Qualifiers: Hypertension type: primary hypertension Qualified Code(s): I10 - Essential (primary) hypertension Code(s): I10 - Essential (primary) hypertension Status: Chronic (5) Chronic kidney disease: Code(s): N18.9 - Chronic kidney disease, unspecified Status: Acute (6) Elevated troponin: Code(s): R77.8 - Other specified abnormalities of plasma proteins Status: Acute (7) Dizziness: Code(s): R42 - Dizziness and giddiness Status: Acute (8) CHF (congestive heart failure): Code(s): I50.9 - Heart failure, unspecified Status: Acute (9) Atrial fibrillation: Qualifiers: Atrial fibrillation type: paroxysmal Qualified Code(s): I48.0 - Paroxysmal atrial fibrillation Code(s): I48.91 - Unspecified atrial fibrillation Status: Acute (10) Obstructive sleep apnea: Code(s): G47.33 - Obstructive sleep apnea (adult) (pediatric) Status: Acute Plan 1. Ischemic Cardiomyopathy causing CHF see previous echo in h&p from hospitalist On a complicated med list that is not optimized. Wants me to defer to his primary dandy operator Dr. Wheeler ct metop 25 er, coumadin, plavix and BP control 2. [place]compens[place] bnp [id number] Decompensated chf on CXR pt needs more aggressive diuresis. Says 2 mg bumex IV bid not doing much Increase to 3 mg IV bid. If this doesn't work, increase to 3 mg q8 hr. He is on amio 200 qd, isosorbide 120 qd (this medicine needs to be lowered or stopped), losartan 25 mg qd, metop er 25 qd (this medicine needs to be maximized), aldactone 25 qd (I stopped this.), hydralazine 50 tid (also an irrelevant medication. His BB needs to be uptitrated) He says his aldactone was stopped, but for some reason it is on his med profile Ct aggressive diuresis and monitor kidney function- nephrology consulted for assistance in management 3. Chronic afib 72 rate controlled afib see meds above warfarin for AC. f/u his inr daily 4. Bed bug bites ct triamcinolone cream or any other symptomatic treatments the pt would like 5. Nose bleeding not having it when I was in the room. Monitor 6. DM ISS home glipizide was held inpt/tele Full Code on coumadin for dvt prophylaxis Time Spent With Patient Time: 45 min Subjective Date/time seen: 09/17/23 18:23 Interval history: pt still reporting abd fullness. Needs increased diuresis Still reporting abd scratching from bed bugs. Exam Narrative: Weight 120 kg BMI 35.9 Const: Other: Obese, chronically ill-appearing, appears older than stated age HENMT: Other: Dried blood clots to the soft palate, dried blood to posterior tongue, no petechia, dried blood to the upper lip and nares, mucous membranes are dry, crowded posterior oropharynx, head is normocephalic atraumatic Eyes: Other: Pupils are equal and reactive, no scleral icterus positive conjunctival pallor Neck: Other: Large neck circumference, difficult to assess for JVD due to the patient's long barton but no obvious JVD Chest: Other: No crepitus, equal chest expansion Resp: Other: Clear to auscultation anteriorly, decreased breath sounds at the bases posterior/lateral lung morelos, conversational tachypnea Cardio:
[2023-09-17] MEDS: BUMETANIDE INJ 1 MG/4 ML VIAL 3 MG IV PUSH (20:31)
[2023-09-17] MEDS: DOXAZOSIN MESYLATE 2 MG TABLET PO (20:32)
[2023-09-17] MEDS: WARFARIN (*PBKC) 4 MG TABLET PO (20:32)
[2023-09-17] MEDS: INSULIN GLARGINE (*BKC) 100 UNITS/ML 15 UNITS SUB-Q (20:42)
[2023-09-18] VITALS (11 sets, daily range): BP systolic 101–116; BP diastolic 47–71; PULSE 64–115; RESP 16–21; TEMP 36.2–36.8; O2SAT 95–100
[2023-09-18] MEDS: LEVOTHYROXINE SODIUM 88 MCG TABLET PO (05:29)
[2023-09-18 06:58] LABS: Basophils Absolute Auto 0.1 K/mm3 (0.0-0.1); Basophils Percent Auto 1.2 % (0.2-1.2); Eosinophils Absolute Auto 0.3 K/mm3 (0-0.3); Eosinophils Percent Auto 4.5 % (0-4.4); Hemoglobin 9.1 g/dL (14.0-18.0); Immature Granulocyte Absolute 0.02 K/mm3 (0.00-0.031); Immature Granulocyte Percent A 0.3 % (0-0.5); Lymphocytes Absolute Auto 1.69 K/mm3 (0.9-3.2); Lymphocytes Percent Auto 29.4 % (18.3-44.2); Mean Corpuscular HGB Conc 30.3 g/dl (32-36); Mean Corpuscular Volume 105.6 fl (80-100); Mean Platelet Volume 11.2 fl (7.4-10.4); Monocytes Absolute Auto 0.4 K/mm3 (0.1-0.6); Monocytes Percent Auto 7.7 % (2.6-8.5); Neutrophils Absolute Auto 3.3 K/mm3 (1.3-6.7); Neutrophils Percent Auto 56.9 % (45.5-73.1); Platelet Count Result 198 k/mm3 (150-375); Red Blood Count 2.84 M/mm3 (4.6-6.20); Red Cell Distribution Width 16.3 % (11.5-14.5); White Blood Count 5.8 K/mm3 (4.5-10.0)
[2023-09-18 07:18] LABS: Alanine Aminotransferase 15 U/L (6-50); Albumin Level 3.4 g/dL (3.5-5.1); Alkaline Phosphatase 88 U/L (38-126); Anion Gap 8 mmol/L (8-16); Aspartate Amino Transferase 24 U/L (17-59); Bilirubin,Total 0.7 mg/dL (0.2-1.3); Blood Urea Nitrogen 62 mg/dL (9-20); Calcium 8.9 mg/dL (8.4-10.2); Carbon Dioxide 29 mmol/L (22-30); Chloride 104 mmol/L (98-107); Estimated CRCL calculation 29 ml/min; Estimated Glomerular Filt Rate 24; Glucose 123 mg/dL (65-110); Potassium 3.3 mmol/L (3.4-5.0); Sodium 141 mmol/L (137-145)
[2023-09-18 07:24] LABS: INR 2.7; Prothrombin Time 31.2 Seconds (11.1-14.7)
[2023-09-18 08:20] LABS: Glucose Point of Care 121 mg/dl (65-105)
[2023-09-18 08:42] LABS: Platelet Estimate Adequate (Adequate)
[2023-09-18 08:43] LABS: Poikilocytosis 1+ (NORMAL); Tear Drop Cells 1+ (NORMAL)
[2023-09-18 08:44] LABS: Anisocytosis 1+ (NORMAL); Hypochromasia 1+ (NORMAL); Schistocytes None Seen (NORMAL)
[2023-09-18] MEDS: CLOPIDOGREL BISULFATE 75 MG TABLET PO (10:04)
[2023-09-18] MEDS: AMIODARONE HCL 200 MG TABLET PO (10:04)
[2023-09-18] MEDS: SACCHAROMYCES BOULARDII 250 MG CAPSULE PO ×2 (10:05→17:13)
[2023-09-18] MEDS: ASCORBIC ACID 500 MG TABLET 1000 MG PO (10:05)
[2023-09-18] MEDS: POTASSIUM CHLORIDE 20 MEQ ER TABLET PO (10:06)
[2023-09-18] MEDS: hydrALAZINE HCL 50 MG TABLET PO ×3 (10:06→17:13)
[2023-09-18] MEDS: PANTOPRAZOLE 40 MG TABLET PO (10:06)
[2023-09-18] MEDS: MAGNESIUM OXIDE 400 MG TABLET PO ×2 (10:06→17:13)
[2023-09-18] MEDS: METOPROLOL SUCCINATE EXT REL 25 MG TABCR PO (10:06)
[2023-09-18] MEDS: allopurinoL 300 MG TABLET PO (10:06)
[2023-09-18] MEDS: LOSARTAN POTASSIUM 25 MG TABLET PO (10:06)
[2023-09-18] MEDS: CALCIUM CARBONATE (OSCAL) 500 MG TABLET PO ×2 (10:06→17:13)
[2023-09-18] MEDS: BUMETANIDE INJ 1 MG/4 ML VIAL 3 MG IV PUSH ×2 (10:07→17:12)
[2023-09-18] MEDS: TRIAMCINOLONE ACET 0.5% OINT 15 GM TUBE 1 APPLIC TOPICAL ×3 (10:08→17:20)
[2023-09-18] MEDS: ISOSORBIDE MONONITRATE 60 MG TAB.ER.24H 120 MG PO (10:10)
--- NOTE | 2023-09-18 11:30 | PM.CNNEP ---
Assessment and Plan Assessment and plan (1) Chronic kidney disease, stage 4 (severe): Code(s): N18.4 - Chronic kidney disease, stage 4 (severe) Status: Chronic Assessment and Plan: creatinine was running ~ 2ish [place] in 2021 due to HTN, DM, CHF, vascular disease, EILEEN/pulmonary hypertension, and age-related change however, with recent last hospitalizations this year, his creatinine has been running higher (in the 3ish range) due to diuresis and need for high dose diuretics suspect some CKD progression versus the fact that he needs a higher creatinine to achieve relative euvolemia apparently, planning to switching to Dr. Brandon for ongoing CKD management (2) Acute on chronic diastolic (congestive) heart failure: Code(s): I50.33 - Acute on chronic diastolic (congestive) heart failure Status: Acute Assessment and Plan: apparently worsened by recent discontinuation of diuretic therapy clinically improvement with more aggressive IV diuresis follow I/Os, daily weights, and respiratory status continue ongoing medical therapy (3) Atrial fibrillation: Qualifiers: Atrial fibrillation type: paroxysmal Qualified Code(s): I48.0 - Paroxysmal atrial fibrillation Code(s): I48.91 - Unspecified atrial fibrillation Status: Acute Assessment and Plan: rate control strategy on anticoagulation with warfarin continue current therapy (4) Hypertension: Qualifiers: Hypertension type: primary hypertension Qualified Code(s): I10 - Essential (primary) hypertension Code(s): I10 - Essential (primary) hypertension Status: Chronic Assessment and Plan: reasonable control follow trend of hemodynamics (5) Type 2 diabetes mellitus: Code(s): E11.9 - Type 2 diabetes mellitus without complications Status: Chronic Assessment and Plan: follow accu-cheks glycemic control per hospitalists I will continue follow the patient with you while he remains hospitalized and make further recommendations as needed. Thank you for allowing me to participate in care this patient. History of Present Illness Reason for Consult Consult date: 09/18/23 Reason for consult: chronic renal failure and Other (Volume overload) Chief Complaint Chief complaint: CHF Exacerbation History of Present Illness Narrative: The patient is a 70-year-old male with a past medical history as outlined below who presented to [facility] Emergency Room for further evaluation of shortness of breath and increased lower extremity edema. The patient was just recently hospitalized here in July of 2023 due to a acute exacerbation of his congestive heart failure. During that hospital stay he was aggressively diuresed and he clinically improved and symptomatic Tavia felt better. Following discharge from that hospitalization, he has noticed increasing lower extremity swelling edema over last couple weeks in association with abdominal distension. He denies any chest pain or palpitations but does admit to some intermittent epistaxis. With the a for mention the abdominal distension and increasing lower extremity edema, he has also noted more progressive shortness of breath in the last few weeks as well. Given these constellation of symptoms, he presented to the emergency room for further assessment. Workup and evaluation emergency room demonstrated the patient to be hemodynamically stable and afebrile. He was noted to be in atrial fibrillation but his heart rate was controlled. Routine blood test demonstrated labs consistent with his known history of chronic kidney disease and he did not have any critical electrolyte abnormalities or any abnormalities in his CBC. Given evidence of volume overload and CHF, he was admitted to the hospital for further evaluation therapy and ongoing optimization of his fluid status. Since his admission, despite IV diuretic
[2023-09-18 12:08] LABS: Glucose Point of Care 170 mg/dl (65-105)
[2023-09-18] MEDS: FERROUS SULFATE 325 MG TABLET DR PO (12:46)
[2023-09-18 16:56] LABS: Glucose Point of Care 260 mg/dl (65-105)
[2023-09-18] MEDS: WARFARIN (*PBKC) 4 MG TABLET PO (17:13)
[2023-09-18 17:22] LABS: Glucose Point of Care 181 mg/dl (65-105)
--- NOTE | 2023-09-18 17:46 | PM.IMPN ---
Progress Note: A&P Assessment and Plan (1) Acute exacerbation of CHF (congestive heart failure): Qualifiers: Heart failure type: combined systolic and diastolic Qualified Code(s): I50.43 - Acute on chronic combined systolic (congestive) and diastolic (congestive) heart failure Code(s): I50.9 - Heart failure, unspecified Status: Acute (2) Chronic kidney disease: Code(s): N18.9 - Chronic kidney disease, unspecified Status: Acute (3) Hypokalemia: Code(s): E87.6 - Hypokalemia Status: Acute Plan cont diuresis. ctm kidney function. replace potassium start contact precautions for bed bugs. likely home tomorrow Subjective Date/time seen: 09/18/23 17:46 Interval history: NAOE. pt feels his breathing is improved Review of Systems Review of Systems: All systems reviewed & are unremarkable except as noted in HPI and below Exam Const: General: comfortable and no acute distress Eyes: Pupils: Equal, round and reactive pupils present Resp: Effort & Inspection: normal respiratory effort Auscultation: clear to auscultation bilaterally Cardio: Rate: regular rate Rhythm: regular rhythm Heart sounds: no gallops, no murmurs and no rubs GI: GI Palp: Yes Soft to palpation and No Tenderness to palpation present (GI) Extrem: General: no edema Objective Data Vital Signs Vital Signs: Vital Signs - 24 hr 09/17/23 21:52 09/17/23 20:00 09/18/23 00:00 Temperature 97.3 F L Pulse Rate 92 74 75 Respiratory Rate 18 Blood Pressure 100/69 Pulse Oximetry 97 Oxygen Delivery 09/17/23 20:00 09/18/23 04:00 09/18/23 06:00 Temperature 98.2 F Pulse Rate 70 115 H Respiratory Rate 18 Blood Pressure 101/47 L Pulse Oximetry 95 Oxygen Delivery Room Air 09/18/23 08:55 09/18/23 10:04 09/18/23 10:06 Temperature Pulse Rate 78 78 Respiratory Rate Blood Pressure Pulse Oximetry Oxygen Delivery Room Air 09/18/23 08:00 09/18/23 12:00 09/18/23 13:13 Temperature 97.9 F Pulse Rate 70 77 64 Respiratory Rate 16 Blood Pressure 101/67 Pulse Oximetry 98 Oxygen Delivery 09/18/23 16:00 Temperature Pulse Rate 70 Respiratory Rate Blood Pressure Pulse Oximetry Oxygen Delivery Intake/Output Intake/Output: Intake & Output 09/15/23 09/16/23 09/17/23 09/18/23 23:59 23:59 23:59 23:59 Intake Total 1140 1180 Output Total 1350 1300 Balance -210 -120 Meds/Results Medications: Active Medications Generic Name Dose Route Start Last Admin Trade Name Freq PRN Reason Stop Dose Admin Acetaminophen 650 mg 09/16/23 23:58 Acetaminophen 325 Mg Tablet PO Q4H PRN Mild Pain (1-3) or Fever Hydrocodone Bitart/Acetaminophen 1 tab 09/17/23 00:24 Hydrocodone/Acetaminophen (*Crx) 5-325 Mg Tablet PO Q6H PRN Pain 4-10 Albuterol 2.5 mg 09/17/23 00:24 Albuterol Sulfate Neb 2.5 Mg/3 Ml Inh INHALATION Q4HRT PRN Shortness Of Breath Allopurinol 300 mg 09/17/23 09:00 09/18/23 10:06 Allopurinol 300 Mg Tablet PO 300 mg DAILY ALBERTO Administration Amiodarone HCl 200 mg 09/17/23 09:00 09/18/23 10:04 Amiodarone Hcl 200 Mg Tablet PO 200 mg DAILY ALBERTO Administration Ascorbic Acid 1,000 mg 09/17/23 09:00 09/18/23 10:05 Ascorbic Acid 500 Mg Tablet PO 1,000 mg DAILY ALBERTO Administration Bumetanide 3 mg 09/17/23 21:00 09/18/23 17:12 Bumetanide Inj 1 Mg/4 Ml Vial IV PUSH 3 mg BID ALBERTO Administration Calcium Carbonate 500 mg 09/17/23 09:00 09/18/23 17:13 Calcium Carbonate (Oscal) 500 Mg Tablet PO 10/17/23 08:59 500 mg BID ALBERTO Administration Clopidogrel Bisulfate 75 mg 09/17/23 09:00 09/18/23 10:04 Clopidogrel Bisulfate 75 Mg Tablet PO 75 mg DAILY ALBERTO Administration Dextrose 12.5 gm 09/17/23 00:29 Dextrose 50% 25 Gm/50 Ml Syringe IV PUSH PRN PRN Hypoglycemia Protocol Doxazosin Mesylate 2 mg 09/17/23 21:0
[2023-09-18] MEDS: DOXAZOSIN MESYLATE 2 MG TABLET PO (20:55)
[2023-09-18] MEDS: metOLazone 5 MG TABLET PO (20:56)
[2023-09-18] MEDS: INSULIN ASPART (*BKC) 100 UNITS/ML SUB-Q (20:59)
[2023-09-18] MEDS: INSULIN GLARGINE (*BKC) 100 UNITS/ML 15 UNITS SUB-Q (21:00)
[2023-09-18 21:08] LABS: Glucose Point of Care 231 mg/dl (65-105)
[2023-09-19] VITALS (8 sets, daily range): BP systolic 106–120; BP diastolic 67–77; PULSE 64–96; RESP 16–18; TEMP 36.2–37; O2SAT 94–97
[2023-09-19 05:49] LABS: Basophils Percent Auto 0.8 % (0.2-1.2); Eosinophils Absolute Auto 0.3 K/mm3 (0-0.3); Eosinophils Percent Auto 5.2 % (0-4.4); Hematocrit 28.6 % (42.0-52.0); Hemoglobin 8.7 g/dL (14.0-18.0); Immature Granulocyte Absolute 0.01 K/mm3 (0.00-0.031); Immature Granulocyte Percent A 0.2 % (0-0.5); Lymphocytes Absolute Auto 1.54 K/mm3 (0.9-3.2); Lymphocytes Percent Auto 29.4 % (18.3-44.2); Mean Corpuscular HGB Conc 30.4 g/dl (32-36); Mean Corpuscular Hemoglobin 31.6 pg (26-34); Mean Platelet Volume 10.5 fl (7.4-10.4); Monocytes Absolute Auto 0.5 K/mm3 (0.1-0.6); Monocytes Percent Auto 8.8 % (2.6-8.5); Neutrophils Absolute Auto 2.9 K/mm3 (1.3-6.7); Neutrophils Percent Auto 55.6 % (45.5-73.1); Platelet Count Result 182 k/mm3 (150-375); Red Blood Count 2.75 M/mm3 (4.6-6.20); Red Cell Distribution Width 16.1 % (11.5-14.5); White Blood Count 5.2 K/mm3 (4.5-10.0)
[2023-09-19] MEDS: LEVOTHYROXINE SODIUM 88 MCG TABLET PO (06:02)
[2023-09-19 06:07] LABS: INR 2.7; Prothrombin Time 30.6 Seconds (11.1-14.7)
[2023-09-19 06:08] LABS: Alanine Aminotransferase 15 U/L (6-50); Albumin Level 3.4 g/dL (3.5-5.1); Alkaline Phosphatase 90 U/L (38-126); Anion Gap 9 mmol/L (8-16); Aspartate Amino Transferase 23 U/L (17-59); Bilirubin,Total 0.5 mg/dL (0.2-1.3); Blood Urea Nitrogen 70 mg/dL (9-20); Calcium 8.9 mg/dL (8.4-10.2); Carbon Dioxide 30 mmol/L (22-30); Chloride 100 mmol/L (98-107); Estimated CRCL calculation 25 ml/min; Estimated Glomerular Filt Rate 21; Glucose 150 mg/dL (65-110); Phosphorus 3.3 mg/dL (2.5-4.5); Potassium 3.8 mmol/L (3.4-5.0); Sodium 139 mmol/L (137-145)
[2023-09-19 08:31] LABS: Glucose Point of Care 143 mg/dl (65-105)
[2023-09-19] MEDS: CLOPIDOGREL BISULFATE 75 MG TABLET PO (08:42)
[2023-09-19] MEDS: MAGNESIUM OXIDE 400 MG TABLET PO ×2 (08:42→17:30)
[2023-09-19] MEDS: ASCORBIC ACID 500 MG TABLET 1000 MG PO (08:42)
[2023-09-19] MEDS: ISOSORBIDE MONONITRATE 60 MG TAB.ER.24H 120 MG PO (08:42)
[2023-09-19] MEDS: BUMETANIDE INJ 1 MG/4 ML VIAL 3 MG IV PUSH (08:42)
[2023-09-19] MEDS: allopurinoL 300 MG TABLET PO (08:42)
[2023-09-19] MEDS: PANTOPRAZOLE 40 MG TABLET PO (08:42)
[2023-09-19] MEDS: hydrALAZINE HCL 50 MG TABLET PO ×3 (08:42→17:30)
[2023-09-19] MEDS: LOSARTAN POTASSIUM 25 MG TABLET PO (08:43)
[2023-09-19] MEDS: SACCHAROMYCES BOULARDII 250 MG CAPSULE PO (08:43)
[2023-09-19] MEDS: CALCIUM CARBONATE (OSCAL) 500 MG TABLET PO ×2 (08:43→17:30)
[2023-09-19] MEDS: POTASSIUM CHLORIDE 20 MEQ ER TABLET PO (08:43)
[2023-09-19] MEDS: TRIAMCINOLONE ACET 0.5% OINT 15 GM TUBE 1 APPLIC TOPICAL ×3 (08:44→17:31)
[2023-09-19] MEDS: metOLazone 5 MG TABLET PO (08:47)
[2023-09-19] MEDS: METOPROLOL SUCCINATE EXT REL 25 MG TABCR PO (08:50)
[2023-09-19] MEDS: AMIODARONE HCL 200 MG TABLET PO (08:50)
[2023-09-19 12:27] LABS: Glucose Point of Care 198 mg/dl (65-105)
--- NOTE | 2023-09-19 13:00 | PM.DS ---
DS: Admitting Diagnosis Discharge Date 09/19/23 Admitting Diagnosis lower extremity swelling DS: Discharge Diagnosis Discharge Diagnosis (1) Acute exacerbation of CHF (congestive heart failure): Qualifiers: Heart failure type: combined systolic and diastolic Qualified Code(s): I50.43 - Acute on chronic combined systolic (congestive) and diastolic (congestive) heart failure Code(s): I50.9 - Heart failure, unspecified Status: Acute (2) Chronic kidney disease: Code(s): N18.9 - Chronic kidney disease, unspecified Status: Acute DS: Summary Hospital Course Hospital Course: 78M w/ combined systolic diastolic congestive heart failure and multiple other comorbidities presents with complaints of increased lower extremity swelling. He lives at assisted living, was adherent to 1800cc fluid restriction daily but not salt restriction. His spironolactone was dc'ed, and bumex increased from 2mg bid to 3mg bid. his swelling greatly improved, however he did have a slight bump in sCR on an already chronically impaired GFR. Therefore he is discharged at the medium of 2.5mg of Bumex BID. He is to follow up with his weed science research technician, as he did not want us to alter his medications any further. Reportedly he had an episode of epistaxis but that resolved spontaneously. He has rash indicative of bed bugs. contact precautions were initiated and his facility notified. He was DNR during his stay. More than 30 minutes spent on discharge planning and documentation. Time Spent with Patient Time attestation: Total time spent providing and/or coordinating discharge services: Exam Const: General: comfortable and no acute distress Eyes: Pupils: Equal, round and reactive pupils present Neck: Neck: supple Resp: Effort & Inspection: normal respiratory effort Auscultation: crackles (crackles up to mid lungs L>R) Cardio: Rate: regular rate Rhythm: regular rhythm Heart sounds: no gallops, no murmurs and no rubs GI: GI Palp: Yes Soft to palpation and No Tenderness to palpation present (GI) Extrem: General: edema (2+ at ankles, greatly improved) DS: Data Data Completed and Pending Labs on day of discharge: Labs from last 24 hours 09/19/23 09/19/23 09/19/23 12:22 08:27 05:38 WBC 5.2 RBC 2.75 L Hgb 8.7 L Hct 28.6 L MCV 104.0 H MCH 31.6 MCHC 30.4 L RDW 16.1 H Plt Count 182 MPV 10.5 H Immature Gran % (Auto) 0.2 Neut % (Auto) 55.6 Lymph % (Auto) 29.4 [place] % (Auto) 8.8 H Eos % (Auto) 5.2 H Baso % (Auto) 0.8 Lymph # (Auto) 1.54 [place] # (Auto) 0.5 Eos # (Auto) 0.3 Baso # (Auto) 0.0 Abs Immat Gran (auto) 0.01 Absolute Neuts (auto) 2.9 Absolute Nucleated RBC 0.0 Nucleated RBC % 0.0 PT 30.6 H INR 2.7 Sodium 139 Potassium 3.8 Chloride 100 Carbon Dioxide 30 Anion Gap 9 BUN 70 H Creatinine 2.90 H Estim Creat Clear Calc 25 Estimated GFR 21 L Glucose 150 H POC Capillary Glucose 198 H 143 H Calcium 8.9 Phosphorus 3.3 Total Bilirubin 0.5 AST 23 ALT 15 Alkaline Phosphatase 90 Total Protein 7.0 Albumin 3.4 L 09/18/23 09/18/23 09/17/23 20:59 17:18 20:19 WBC RBC Hgb Hct MCV MCH MCHC RDW Plt Count MPV Immature Gran % (Auto) Neut % (Auto) Lymph % (Auto) [place] % (Auto) Eos % (Auto) Baso % (Auto) Lymph # (Auto) [place] # (Auto) Eos # (Auto) Baso # (Auto) Abs Immat Gran (auto) Absolute Neuts (auto) Absolute Nucleated RBC Nucleated RBC % PT INR Sodium Potassium Chloride Carbon Dioxide Anion Gap BUN Creatinine Estim Creat Clear Calc Estimated GFR Glucose POC Capillary Glucose 231 H 181 H 260 H Calcium Phosphorus Total Bilirubin AST ALT Alkaline Phosphatase Total Protein Albumin Discharge Plan Discharge Att
[2023-09-19] MEDS: FERROUS SULFATE 325 MG TABLET DR PO (13:36)
[2023-09-19 14:47] LABS: SARS-CoV-2 RNA PCR Negative (Negative)
[2023-09-19 17:18] LABS: Glucose Point of Care 270 mg/dl (65-105)
[2023-09-19] MEDS: WARFARIN (*PBKC) 4 MG TABLET PO (17:31)
[2023-09-19] MEDS: INSULIN ASPART (*BKC) 100 UNITS/ML SUB-Q (17:32)
== END 2023-09-19 17:50 | disposition home or self-care (01) | DRG 291 ==
LOC: ANHED 21:23 → ANH3MED 21:51
PROVIDERS: Internal Medicine; Internal Medicine Nephrology; Admitting Provider Internal Medicine; Emergency Provider Student in an Organized Health Care Education/Training Program; PCP Registered Nurse; Visit Provider General Practice
DX: I13.0 Hypertensive heart and chronic kidney disease with heart failure and stage 1 through stage 4 chronic kidney disease, or unspecified chronic kidney disease (principal); I50.43 Acute on chronic combined systolic (congestive) and diastolic (congestive) heart failure; N18.4 Chronic kidney disease, stage 4 (severe); I48.20 Chronic atrial fibrillation, unspecified; E11.22 Type 2 diabetes mellitus with diabetic chronic kidney disease; R21 Rash and other nonspecific skin eruption; E03.9 Hypothyroidism, unspecified; G47.33 Obstructive sleep apnea (adult) (pediatric); I25.10 Atherosclerotic heart disease of native coronary artery without angina pectoris; I25.2 Old myocardial infarction; Z79.01 Long term (current) use of anticoagulants; Z90.49 Acquired absence of other specified parts of digestive tract; R04.0 Epistaxis; I25.5 Ischemic cardiomyopathy; I35.0 Nonrheumatic aortic (valve) stenosis; D64.9 Anemia, unspecified; E66.9 Obesity, unspecified; Z68.32 Body mass index [BMI] 32.0-32.9, adult; Z87.891 Personal history of nicotine dependence; E87.6 Hypokalemia; Z20.822 Contact with and (suspected) exposure to COVID-19
CPT/HCPCS: 36415; 71046; 80048; 80053; 82948; 83880; 84100; 84484; 85025; 85027; 85610; 85730; 87635; 87637; 93005; 96374; 97110; 97161; 97165; 97530; 99285; A9270; J1815

== ENCOUNTER 2023-10-28 13:33 | Inpatient (IN) | payer MEDICARE, MEDICAID, SELFPAY ==
[2023-10-28] VITALS (28 sets, daily range): BP systolic 82–99; BP diastolic 49–75; PULSE 71–97; RESP 12–21; TEMP 36.6; O2SAT 92–100
--- NOTE | ~2023-10-28 | US_ITS ---
EXAMINATION: US venous doppler [facility] DATE: 10/28/2023 16:15 INDICATION: Left lower limb swelling TECHNIQUE: [place] scale images without and with compression and Doppler images of the left lower extrem ity veins were obtained. COMPARISON: 05/08/2021 FINDINGS: The left common femoral vein, profunda femoral vein, femoral vein, popliteal vein, peroneal trunk, posterior tibial veins, and greater saphenous vein are patent. IMPRESSION: 1. Patent left lower extremity veins. No evidence of deep venous thrombosis. Reviewed, dictated and finalized at location F. JET OPERATOR
--- NOTE | ~2023-10-28 | XR_ITS ---
EXAMINATION: XR chest 2V Exam Date/Time: 11/02/2023 12:50 DIVIDING MACHINE OPERATOR HISTORY: sob Comparison: None. RESULT: Lines, tubes, and devices: Subdiaphragmatic NG tube. Lungs and pleura: Improving, now mild diffuse reticular opacities. Nodular left pleural thickening. Left pleural calcifications seen better by prior CT. Granulomatous calcifications Cardiomediastinal silhouette: Stable. Other: Dilated bowel loops in the upper abdomen. No acute osseous finding. IMPRESSION: Improving pulmonary opacities likely representing improving interstitial edema. Dilated bowel loops in the upper abdomen. Reviewed, dictated and finalized at location K. DING MACHINE OPERATOR
--- NOTE | ~2023-10-28 | CT_ITS ---
EXAMINATION: CT hip RT wo con DATE: 10/29/2023 15:15 INDICATION: Right hip pain. TECHNIQUE: Computed tomography (CT) of the right hip was performed without intravenous contrast. Auto mated exposure control and iterative reconstruction technique were employed. The dose-length product was 1110.74 mGy-cm. COMPARISON: CT abdomen and pelvis 10/28/2023, right hip radiographs 10/28/2023 FINDINGS: Bone alignment is normal. No fracture. There is moderate right hip osteoarthritis. IMPRESSION: 1. Moderate right hip osteoarthritis. Reviewed, dictated and finalized at location A. TECHNOLOGIST
--- NOTE | ~2023-10-28 | XR_ITS ---
MODIFIED ESOPHAGRAM HISTORY: Dysphagia. TECHNIQUE: Modified barium esophagram was performed on 11/07/2023. I administered fluoroscopy and perf ormed the exam with speech pathologist. Patient was seated for lateral fluoroscopic imaging for scarlet stion of thin liquids, pudding, solids and quantified amounts, followed by thin liquids in uncontroll ed amounts. This was recorded on tape. A single fluoroscopic spot image was also recorded. The DAP fo r this procedure was 3.718 Gycm2. The amount of fluoroscopy time used during this procedure was 3.1 m inutes. FINDINGS: Oral stage: Adequate function. Pharyngeal stage: Reduced laryngeal elevation. There is small amount of residue at the piriform sinus and more prominent residue at the vallecula which requires multiple swallows to clear. There is antonieta ngeal penetration with thin liquids but no evident aspiration. Cervical/esophageal stage: Adequate function. IMPRESSION: Pharyngeal dysphagia with small amount of laryngeal penetration without aspiration. Plea se correlate with speech pathologist findings and specific feeding recommendations. Reviewed, dictated and finalized at location A. IFIER IMPRESSION: Pharyngeal dysphagia with small amount of laryngeal penetration wit hout aspiration. Please correlate with speech pathologist findings and specifi c feeding recommendations.
--- NOTE | ~2023-10-28 | US_ITS ---
EXAMINATION: US retroperitoneal comp DATE: 10/29/2023 15:01 INDICATION: Acute on chronic kidney disease. TECHNIQUE: Multiple ultrasound grayscale images of the kidneys were obtained. COMPARISON: CT abdomen and pelvis 10/28/2023 FINDINGS: The right kidney measures 15.4 x 6.4 x 5.4 cm. There is an 8.5 cm cyst in right kidney. The left kidn ey is not visualized. There is no hydronephrosis. The bladder is decompressed by a Souza catheter. IMPRESSION: 1. Normal-sized right kidney. No hydronephrosis. 2. Left kidney not visualized due to the patient's body habitus. No hydronephrosis on the recent CT. Reviewed, dictated and finalized at location A. SHOVER IMPRESSION: 1. Normal-sized right kidney. No hydronephrosis. 2. Left kidney not visualized due to the patient's body habitus. No hydronephro sis on the recent CT.
--- NOTE | ~2023-10-28 | CT_ITS ---
EXAMINATION: CT abdomen pelvis wo con DATE: 10/28/2023 16:05 INDICATION: Left lower quadrant pain TECHNIQUE: Computed tomography (CT) of the abdomen and pelvis was performed without intravenous contr ast. The dose-length product (DLP) was 1534.34 mGy-cm. Automated exposure control and iterative recon struction technique were employed. COMPARISON: None FINDINGS: Cardiomegaly is noted. There is smooth interlobular septal thickening in the lung bases. Pa tchy groundglass opacities are also noted in the visualized lung bases. There are small pleural effus ions, right greater than left. There are pleural calcifications on the left which could reflect prior asbestos exposure or be related to prior infection. Changes of cholecystectomy are noted. The liver, pancreas, and adrenal glands are normal. Punctate calcifications in an otherwise normal spleen likel y represent healed granulomatous disease. There is severe atrophy of the kidneys. Cysts of the right kidney measure up to 7.1 cm. There is wall thickening with surrounding inflammatory change of the neno cending colon. There is a small volume of ascites in the left pericolic gutter. Colonic diverticulosi s is present without evidence of diverticulitis. No pathologically enlarged abdominal or pelvic lymph nodes are identified. No free intraperitoneal gas or evidence of bowel obstruction. There is antegra de intramedullary mariola and interlocking intratrochanteric screw fixation of the left femur. There is s evere lumbar spondylosis. IMPRESSION: 1. Findings consistent with colitis of the descending colon. 2. Cardiomegaly with mild pulmonary edema in the visualized lung bases. Reviewed, dictated and finalized at location F. SETTER STEEL FORMS
--- NOTE | ~2023-10-28 | XR_ITS ---
EXAMINATION: XR abdomen/kub 1V INDICATION: Small bowel obstruction TECHNIQUE: Supine views of the abdomen were obtained on three radiographs. COMPARISON: 11/02/2023 FINDINGS: The nasogastric tube is in the stomach. There are persistently dilated loops of large and s mall bowel without significant change. Cholecystectomy clips are noted. No free intraperitoneal gas i s identified. IMPRESSION: 1. Persistently dilated large and small bowel without significant change, consistent with ileus versu s partial obstruction. Reviewed, dictated and finalized at location F. LANE PILOT CROP DUSTING IMPRESSION: 1. Persistently dilated large and small bowel without significant change, consi stent with ileus versus partial obstruction.
--- NOTE | ~2023-10-28 | XR_ITS ---
EXAMINATION: XR abdomen gastric tube insert DATE: 11/01/2023 16:51 INDICATION: Nasogastric tube placement. TECHNIQUE: A supine view of the abdomen on 2 radiographs was obtained. COMPARISON: None. FINDINGS: The lower abdomen is excluded. The nasogastric tube tip is in the stomach. IMPRESSION: 1. Nasogastric tube tip in the stomach. Reviewed, dictated and finalized at location A. INSTRUCTOR
--- NOTE | ~2023-10-28 | XR_ITS ---
Supine and upright views of the abdomen Clinical history: NG tube placement Findings: NG tube appears to be in satisfactory position. Second portion of current tube appears to p roject just left of midline, terminating at the GE junction region. This density is indeterminate. Gagandeep wel gas pattern is nonspecific. No evidence for obstruction or free air. No abnormal mass lesion or c alcification is seen. Osseous structures are intact. Impression: NG tube is in satisfactory position. Additional tube projecting just left of midline which terminates at the GE junction region. Correlate clinically for [address] Reviewed, dictated and finalized at location M. ICE DESK LEAD Impression: NG tube is in satisfactory position. Additional tube projecting just left of midline which terminates at the GE junc tion region. Correlate clinically for [address]
--- NOTE | ~2023-10-28 | XR_ITS ---
EXAMINATION: XR abdomen/kub 1V DATE: 11/01/2023 10:46 INDICATION: Abdominal pain. Vomiting. TECHNIQUE: A supine view of the abdomen on 2 radiographs was obtained. COMPARISON: CT abdomen and pelvis 10/28/2023 FINDINGS: There is distention of the colon. The small bowel is normal in caliber. There is internal f ixation of left femur. Surgical clips in the right upper quadrant are likely from cholecystectomy. IMPRESSION: 1. New distention of the colon, likely adynamic ileus. Reviewed, dictated and finalized at location A. ROLL INSPECTOR
--- NOTE | ~2023-10-28 | XR_ITS ---
EXAMINATION: XR abdomen/kub 1V INDICATION: Small bowel obstruction TECHNIQUE: Supine views of the abdomen were obtained on three radiographs. COMPARISON: 11/03/2023 FINDINGS: There are persistently dilated loops of large and small bowel without significant change. T he nasogastric tube is in the stomach. Cholecystectomy clips are noted. No free intraperitoneal gas i s identified. There is antegrade intramedullary mariola and interlocking intratrochanteric screw fixation of the left femur. IMPRESSION: 1. Unchanged dilated large and small bowel, consistent with ileus versus partial obstruction. Reviewed, dictated and finalized at location F. ING MACHINE OPERATOR IMPRESSION: 1. Unchanged dilated large and small bowel, consistent with ileus versus partia l obstruction.
--- NOTE | ~2023-10-28 | XR_ITS ---
EXAMINATION: XR hip RT 2V w AP pelvis INDICATION: Right hip pain TECHNIQUE: AP view of the pelvis and two views of the right hip are obtained. COMPARISON: 01/29/2022 FINDINGS: There is antegrade intramedullary mariola and interlocking intratrochanteric screw fixation of the left femur. There is moderate osteoarthritis of the right hip. Bone alignment is normal. No right hip fracture is identified. There is calcified atherosclerosis. IMPRESSION: 1. Moderate osteoarthritis of the right hip without acute osseous abnormality. Reviewed, dictated and finalized at location F. ER HOT DIP
--- NOTE | ~2023-10-28 | XR_ITS ---
Portable chest x-ray Comparison: 09/16/2023 Clinical History: Atrial fibrillation Findings: There is extensive hazy airspace disease. Possible pleural thickening along the left later al lung base versus small effusion. Cardiomediastinal silhouette is stable. Bones and soft tissues a re unremarkable. Impression: Extensive hazy airspace disease, suggestive of mild pulmonary edema. Correlate clinically for infecti on. Possible small left pleural effusion, or possibly left basilar pleural thickening. Reviewed, dictated and finalized at [facility]. S OPERATOR Impression: Extensive hazy airspace disease, suggestive of mild pulmonary edema. Correlate clinically for infection. Possible small left pleural effusion, or possibly left basilar pleural thickeni ng.
--- NOTE | ~2023-10-28 | XR_ITS ---
Supine and upright views of the abdomen Clinical history: Small bowel obstruction COMPARISON: 11/04/2023 Findings: Multiple dilated small bowel loops are again present. Air-filled large bowel loops again pr esent. No free air evident. NG tube in place. No abnormal mass lesion or calcification is seen. [place] us structures are stable. Impression: Stable bowel gas pattern. Correlate for partial small bowel obstruction versus ileus. NG tube in place. Reviewed, dictated and finalized at location . N BUILDING ENGINEER Impression: Stable bowel gas pattern. Correlate for partial small bowel obstruction versus ileus. NG tube in place.
--- NOTE | ~2023-10-28 | XR_ITS ---
Supine and upright views of the abdomen Clinical history: Small bowel obstruction COMPARISON: 11/01/2023 Findings: NG tube in place. Bowel gas pattern is nonspecific, with air distended small and large koki l loops. No evidence for obstruction or free air. No abnormal mass lesion or calcification is seen. O RIF the proximal left femur noted. Impression: Somewhat nonspecific bowel gas pattern with air distended large and small bowel loops. Correlate for generalized ileus. NG tube in place. Reviewed, dictated and finalized at location . HIATRIC NURSE Impression: Somewhat nonspecific bowel gas pattern with air distended large and small bowel loops. Correlate for generalized ileus. NG tube in place.
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
[2023-10-28 14:17] LABS: Basophils Percent Auto 0.2 % (0.2-1.2); Eosinophils Absolute Auto 0.1 K/mm3 (0-0.3); Hematocrit 30.4 % (42.0-52.0); Hemoglobin 9.6 g/dL (14.0-18.0); Immature Granulocyte Absolute 0.04 K/mm3 (0.00-0.031); Immature Granulocyte Percent A 0.3 % (0-0.5); Lymphocytes Percent Auto 6.4 % (18.3-44.2); Mean Corpuscular HGB Conc 31.6 g/dl (32-36); Mean Corpuscular Hemoglobin 31.7 pg (26-34); Mean Corpuscular Volume 100.3 fl (80-100); Mean Platelet Volume 11.5 fl (7.4-10.4); Monocytes Absolute Auto 0.7 K/mm3 (0.1-0.6); Monocytes Percent Auto 5.6 % (2.6-8.5); Neutrophils Absolute Auto 10.7 K/mm3 (1.3-6.7); Neutrophils Percent Auto 86.5 % (45.5-73.1); Platelet Count Result 275 k/mm3 (150-375); Red Blood Count 3.03 M/mm3 (4.6-6.20); Red Cell Distribution Width 16.3 % (11.5-14.5); White Blood Count 12.4 K/mm3 (4.5-10.0)
[2023-10-28] MEDS: ONDANSETRON INJ 4 MG/2 ML VIAL IV PUSH (14:17)
[2023-10-28] MEDS: ACETAMINOPHEN 500 MG TABLET 1000 MG PO (14:17)
[2023-10-28] MEDS: SODIUM CHLORIDE 0.9% IV 500 ML 999 ML IV CONT (14:18)
[2023-10-28 14:28] LABS: Lactic Acid Reflex 1.4 mmol/L (0.7-2.0)
[2023-10-28 15:08] LABS: Alanine Aminotransferase 13 U/L (6-50); Albumin Level 3.1 g/dL (3.5-5.1); Alkaline Phosphatase 77 U/L (38-126); Anion Gap 8 mmol/L (8-16); Aspartate Amino Transferase 19 U/L (17-59); Bilirubin,Total 0.6 mg/dL (0.2-1.3); Blood Urea Nitrogen 94 mg/dL (9-20); Calcium 8.5 mg/dL (8.4-10.2); Carbon Dioxide 26 mmol/L (22-30); Chloride 104 mmol/L (98-107); Creatine Kinase 46 U/L (55-170); Estimated CRCL calculation 21 ml/min; Estimated Glomerular Filt Rate 17; Glucose 108 mg/dL (65-110); Lipase 23 U/L (23-300); Potassium 3.6 mmol/L (3.4-5.0); Sodium 138 mmol/L (137-145)
[2023-10-28 16:52] LABS: Appearance Urine Clear (Clear); Bilirubin Urine Negative (Negative); Blood Urine Negative (Negative); Color Urine Yellow (Yellow); Glucose Urine UA Negative (Negative); Ketones Urine Negative (Negative); Leukocyte Esterase Ur Negative LEU/UL (Negative); Nitrate Urine Negative (Negative); Protein Urine Negative (Negative); Urobilinogen Urine 0.2 mg/dL (<2.0)
[2023-10-28 17:06] LABS: Add Urine Microscopic? NO
[2023-10-28] MEDS: DEXTROSE 5%/LACTATED RINGERS 500 ML 100 ML IV CONT (18:36)
--- NOTE | 2023-10-28 19:09 | PC.NURSE ---
provider aware of vital signs. no new orders at this time
[2023-10-28] MEDS: CIPROFLOXACIN 400 MG/D5W 200ML 200 ML 200 MG IVPB (19:46)
[2023-10-28] MEDS: LACTATED RINGERS 1,000 ML 999 ML IV CONT (20:38)
--- NOTE | 2023-10-28 20:38 | PC.NURSE ---
Per EDP Pierre, stop infusing Ciprofloxacin, initiate bolus of LR.
[2023-10-28 21:35] LABS: Influenza A QL RT-PCR Negative (Negative); Influenza B QL RT-PCR Negative (Negative); RSV RNA, RT-PCR Negative (Negative); SARS-CoV-2 RNA PCR Negative (Negative)
[2023-10-29] VITALS (14 sets, daily range): BP systolic 94–111; BP diastolic 56–71; PULSE 80–115; RESP 15–20; TEMP 36.4–36.6; O2SAT 90–96; BMI 40.0
--- NOTE | 2023-10-29 00:26 | ECG_ITS ---
Measurements Intervals [place] Rate: 82 P: [place]: 0 QRS: -6 QRSD: 117 T: 60 QT: 386 QTc: 452 Interpretive Statements ATRIAL FIBRILLATION CONSIDER ANTERIOR INFARCT, AGE INDETERMINATE BORDERLINE ST-T WAVE ABNORMALITY- HIGH LATERAL LEADS BASELINE ARTIFACT- I, II, III, AVR, AVL, AVF, V1, V4 ABNORMAL ECG COMPARED TO ECG 09/16/2023 17:52:17 NO SIGNIFICANT CHANGES Electronically Signed On 10-29-2023 7:47:31 PRODUCE FIELD MERCHANDISER by Raghav Robins D.O.
--- NOTE | 2023-10-29 00:32 | ADMGEN ---
This patient, Nigel Wang, was admitted to IMU Room 212-01. Patient/family oriented to hospital policies and general routines including ID bracelet, bed and alarms, visiting hours, pain management, procedures, bathroom and other care routines, personal items, smoking policy, room service/diet, and visiting hours. Information on how to activate the Rapid Response Team has been discussed. Patient/Family are encouraged to report perceived risks to care and to ask questions if they do not understand what they are told or what they should do.
[2023-10-29] MEDS: LACTATED RINGERS 1,000 ML 125 ML IV CONT (00:58)
[2023-10-29] MEDS: metroNIDAZOLE 500 MG/ISO 100ML 500 MG/100 ML BAG 100 MG IVPB ×3 (00:59→18:26)
[2023-10-29] MEDS: ACETAMINOPHEN 325 MG TABLET 650 MG PO (01:55)
--- NOTE | 2023-10-29 03:35 | PM.IMHP ---
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 The patient's main complaint was left neck pain and nausea. He has left neck pain and shoulder pain frequently. Is really not all that changed from baseline. But he also has been having some nausea and decreased appetite for several days. Is been associated with some generalized abdominal discomfort. He reports any time he lays down he becomes nauseated and has to spit material up. He [facility]. He reports that after receiving the Zofran he became constipated. He received a suppository. Since the suppository several days ago he has been having multiple episodes of diarrhea. His diarrhea has been watery. He denies any recent antibiotic use. Denies fevers or chills. He reports chronic lower extremity swelling. But has had increased left lower extremity swelling. He has not had any increased shortness of breath from his baseline. He reports he did have a small amount of blood in his stool the day that he had passed the hard stool but has not had any further blood in his stool after that. He denies any hematemesis. CT performed in the ER demonstrated colitis acute on chronic kidney disease. The patient reports that he feels like he may have been getting too much diuretics. He reports severe pain in his right hip but when further investigated the patient actually indicates his right SI joint. He states that any time he tries to move the leg it spasms. On exam he had palpable muscle not in that area. he reports that he has not noticed any thing that really relieves the pain. The pain only started in his hip after he had laid in the bed in the ER for several hours. He reports chronic abdominal distension but reports that is actually better than when he was hospitalized in August. Review of Systems Review of Systems: 12 systems were reviewed with pertinent positives and negatives per HPI. Except as documented in the HPI, all other systems were reviewed and are negative. [facility] Past Medical History Medical History (Updated 10/29/23 @ 07:41 by Kendra Braun DO) Aortic stenosis, mild Atrial fibrillation Chronic anticoagulation Chronic kidney disease, stage 4 (severe) Combined systolic and diastolic congestive heart failure He follows with Dr. 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 History of percutaneous coronary intervention Family History Family History Father Cerebrovascular accident Diabetes mellitus Mother Diabetes mellitus Social History Social History (Reviewed 10/29/23 @ 03:40 by
[2023-10-29] MEDS: diazePAM INJ (*CRX) 10 MG/2 ML SYRINGE 5 MG IV PUSH (03:51)
[2023-10-29 05:24] LABS: Basophils Percent Auto 0.4 % (0.2-1.2); Eosinophils Absolute Auto 0.1 K/mm3 (0-0.3); Eosinophils Percent Auto 1.2 % (0-4.4); Hemoglobin 8.7 g/dL (14.0-18.0); Immature Granulocyte Absolute 0.04 K/mm3 (0.00-0.031); Immature Granulocyte Percent A 0.5 % (0-0.5); Lymphocytes Absolute Auto 1.02 K/mm3 (0.9-3.2); Lymphocytes Percent Auto 12.7 % (18.3-44.2); Mean Corpuscular Volume 103.4 fl (80-100); Mean Platelet Volume 10.7 fl (7.4-10.4); Monocytes Absolute Auto 0.6 K/mm3 (0.1-0.6); Neutrophils Absolute Auto 6.2 K/mm3 (1.3-6.7); Neutrophils Percent Auto 77.2 % (45.5-73.1); Platelet Count Result 179 k/mm3 (150-375); Red Cell Distribution Width 16.1 % (11.5-14.5)
[2023-10-29 05:38] LABS: Alanine Aminotransferase 11 U/L (6-50); Alkaline Phosphatase 75 U/L (38-126); Anion Gap 9 mmol/L (8-16); Aspartate Amino Transferase 19 U/L (17-59); Bilirubin,Total 0.5 mg/dL (0.2-1.3); Blood Urea Nitrogen 89 mg/dL (9-20); Calcium 8.4 mg/dL (8.4-10.2); Carbon Dioxide 26 mmol/L (22-30); Chloride 103 mmol/L (98-107); Estimated CRCL calculation 22 ml/min; Estimated Glomerular Filt Rate 16; Glucose 54 mg/dL (65-110); Potassium 3.6 mmol/L (3.4-5.0); Sodium 138 mmol/L (137-145)
[2023-10-29] MEDS: LEVOTHYROXINE SODIUM 100 MCG TABLET PO (05:45)
[2023-10-29] MEDS: GLUCOSE ORAL GEL 15 GM OF GLUCSE IN 37.5 GM TUBE (05:45)
[2023-10-29 05:48] LABS: Ovalocytes 1+ (NORMAL); Platelet Estimate Adequate (Adequate)
[2023-10-29 05:49] LABS: Schistocytes Rare (NORMAL); Tear Drop Cells 1+ (NORMAL)
[2023-10-29] MEDS: GLUCOSE ORAL GEL 15 GM OF GLUCSE IN 37.5 GM TUBE PO (06:37)
[2023-10-29 06:41] LABS: INR 3.6; Prothrombin Time 38.5 Seconds (11.1-14.7)
[2023-10-29 06:54] LABS: Glucose Point of Care 69 mg/dl (65-105)
[2023-10-29 06:54] LABS: Glucose Point of Care 60 mg/dl (65-105)
[2023-10-29] MEDS: LIDOCAINE 5% PATCH 1 PATCH TRANSDERM (08:35)
[2023-10-29] MEDS: allopurinoL 100 MG TABLET PO (08:37)
[2023-10-29] MEDS: AMIODARONE HCL 200 MG TABLET PO (08:37)
[2023-10-29] MEDS: CLOPIDOGREL BISULFATE 75 MG TABLET PO (08:37)
[2023-10-29] MEDS: PANTOPRAZOLE 40 MG TABLET PO (08:37)
[2023-10-29] MEDS: HYDROcodone/acetaminophen (*CRX) 5-325 MG TABLET 1 TAB PO (08:38)
[2023-10-29] MEDS: LACTATED RINGERS 1,000 ML 75 ML IV CONT (08:44)
[2023-10-29 11:48] LABS: Glucose Point of Care 127 mg/dl (65-105)
[2023-10-29 11:48] LABS: Glucose Point of Care 94 mg/dl (65-105)
[2023-10-29] MEDS: ASCORBIC ACID 500 MG TABLET 1000 MG PO (11:50)
[2023-10-29] MEDS: MAGNESIUM OXIDE 400 MG TABLET PO ×2 (11:50→21:27)
[2023-10-29] MEDS: ACIDOPHILUS/BULGARICUS CHEWABLE TABLET 1 TABLET PO ×2 (11:50→18:26)
[2023-10-29] MEDS: MIDODRINE HCL 2.5 MG TABLET PO ×2 (11:51→18:26)
[2023-10-29] MEDS: CALCIUM CARBONATE (OSCAL) 500 MG TABLET PO ×2 (11:51→18:28)
--- NOTE | 2023-10-29 13:33 | PM.IMPN ---
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 The patient's main complaint was left neck pain and nausea. 1. Acute colitis: Has diarrhea but is improving Continue with ceftriaxone and Flagyl Will stop the IV fluids since he has history of CHF with very low ejection fraction 2. Right hip pain/osteoarthritis: Right hip x-ray negative for any acute etiology/pathology Add IV morphine for pain control, Flexeril Continue with Lidoderm patch, hydrocodone/Tylenol Will obtain CT right hip 3. [place] on pre-existing CKD: Obtain renal ultrasound Will hold Bumex IV fluid was stopped due to mention reason above Avoid nephrotoxins Recheck BMP in a.m. 4. Diabetes mellitus: Blood glucose checked t.i.d. a.c. and HS Low blood glucose overnight Continue with reduced dose Lantus, sliding scale Adjust dose as needed Will hold glipizide 5. History of AFib: Continue with amiodarone INR greater than 3 Recheck INR in a.m. Hold Coumadin today 5. History of systolic heart failure: Currently stable Bumex on hold as mentioned above Add low-dose of midodrine for blood pressure Continue with Plavix Holding all blood pressure lowering medications for now 6. Code status: DNR 7. DVT prophylaxis: Supratherapeutic INR as mentioned 8. Disposition: Pending improvement Time Spent With Patient Time with patient: 15 - 25 minutes Subjective Date/time seen: 10/29/23 13:33 Interval history: Complains of right hip pain Diarrhea, but has improved Review of Systems Review of Systems: All systems reviewed & are unremarkable except as noted in HPI and below Exam Const: General: in distress and uncomfortable Other: obese, chronically ill-appearing HENMT: Other: mucous membranes moist Eyes: Sclera: sclerae normal Neck: Neck: supple Other: large neck circumference, supple, nontender, Resp: Other: decreased breath sounds at the bases bilateral posterior, no increased work of breathing Cardio: Other: irregularly irregular, rate controlled, palpable bilateral radial pedal pulses, distant heart sounds GI: Other: obese, soft, no reproducible tenderness palpation but exam limited due to patient lying on his left side and unwilling to lay in a different position for examination, hyperactive bowel sounds Back/Spine/Pelvis: Other: mild thoracic kyphosis, paraspinal tenderness to the lateral left cervical paraspinal muscles into the trapezius and deltoid region Skin: Other: generalized pallor, non jaundice Neuro: Other: alert oriented x4, speech is clear, no facial asymmetry, moves all extremities equally Psych: Mental Status: mental status grossly normal Other: pleasant and cooperative, fair judgment and insight Objective Data Vital Signs Vital Signs: Vital Signs - 24 hr 10/28/23 13:35 10/28/23 14:34 10/28/23 14:40 Temperature 98 F Pulse Rate 84 85 82 Respiratory Rate 20 18 12 Blood Pressure 95/53 L 96/68 L Pulse Oximetry 97 96 94 Oxygen Delivery Room Air 10/28/23 14:45
--- NOTE | 2023-10-29 16:24 | PC.NURSE ---
This patient, Nigel Wang, was transferred to [[id number] ] on 10/29/23 at 1624. Personal belongings sent with patient. Report given to [JACQUIE Dumas @ [id number] ]. Appropriate documentation sent with patient. was updated regarding pt's transfer to medical floor.
[2023-10-29 16:29] LABS: Glucose Point of Care 126 mg/dl (65-105)
--- NOTE | 2023-10-29 16:46 | PC.NURSE ---
pt transferred in to room 248 via bed, oriented to new room and environment, placed on telemetry per MD orders, reviewed plan of care
[2023-10-29] MEDS: FERROUS SULFATE 325 MG TABLET DR PO (18:26)
[2023-10-29] MEDS: CYCLOBENZAPRINE HCL 5 MG TABLET PO (18:37)
[2023-10-29 20:27] LABS: Glucose Point of Care 152 mg/dl (65-105)
[2023-10-29] MEDS: DOXAZOSIN MESYLATE 2 MG TABLET PO (21:27)
[2023-10-29] MEDS: INSULIN GLARGINE (*BKC) 100 UNITS/ML SUB-Q (21:31)
[2023-10-29 22:26] LABS: Toxigenic C. Diff NEGATIVE (NEGATIVE)
[2023-10-30] VITALS (19 sets, daily range): BP systolic 91–132; BP diastolic 47–94; PULSE 79–120; RESP 16–24; TEMP 36.3–36.8; O2SAT 91–98
--- NOTE | 2023-10-30 | ECHO_ITS ---
Patient Info Name: Nigel Wang Age: 78 years : 1945 Gender: Male Ht: 72 in Wt: 296 lbs BSA: 2.67 m2 HR: 120 bpm BP: 101 / 66 mmHg Heart Rhythm: Atrial Fibrillation Technical Quality: Good Exam Date: 10/30/2023 10:03 AM Exam Location: Echo Lab Patient Status: Inpatient Admit Date: 10/28/2023 Staff Ordering Physician: Sascha Rosado MD Personal Support Worker: Lo Pendleton RDCS Attending Provider: Kendra Braun DO Exam Type: CA echo doppler color flow Study Info Indications - Afib Complete two-dimensional, color flow and Doppler transthoracic echocardiogram is performed. Summary 1. Left ventricular chamber dimension is normal. 2. Left ventricular systolic function is severely reduced, estimated at 20-25%. 3. The mid anterolateral wall, mid anteroseptal wall, apex is akinetic. 4. The basal anterolateral wall, basal anteroseptal wall, inferoseptum, mid inferior wall, mid anterior wall is hypokinetic. 5. Right ventricular chamber dimension is normal. 6. Right ventricular systolic function is reduced. 7. There is moderate mitral valve regurgitation. 8. There is moderate tricuspid valve regurgitation. Left Ventricle The mid anterolateral wall, mid anteroseptal wall, apex is akinetic. The basal anterolateral wall, basal anteroseptal wall, inferoseptum, mid inferior wall, mid anterior wall is hypokinetic. Left ventricular chamber dimension is normal. Left ventricular systolic function is severely reduced, estimated at 20-25%. There is mildly increased left ventricular wall thickness. Right Ventricle Right ventricular chamber dimension is normal. Right ventricular systolic function is reduced. Left Atria Left atrial chamber dimension is normal. Right Atria Right atrial chamber dimension is normal. Atrial Septum Intact interatrial septum visualized by color flow imaging. Aortic Valve The aortic valve is probable trileaflet. There is mild aortic valve stenosis with a peak velocity of 218 cm/s, mean gradient of 11 mmHg, and aortic valve area of 2.8 cm2. There is mild aortic valve regurgitation. There is moderate aortic valve calcification. Pulmonic Valve The pulmonic valve is not well visualized. Mitral Valve There is moderate mitral valve regurgitation. The mitral valve annulus is moderately calcified. Tricuspid Valve There is moderate tricuspid valve regurgitation. Pericardium/Pleural There is no pericardial effusion. Inferior Vena Cava Inferior vena cava is not well visualized. Aorta The aortic root size at the sinus of Valsalva is normal. Left Ventricular Outflow Tract Name Value Normal LVOT 2D LVOT Diameter 2.3 cm LVOT Doppler LVOT Peak Gradient 8 mmHg LVOT Mean Gradient 4 mmHg LVOT VTI 26 cm LVOT VTI/AV VTI Ratio 0.7 LVOT Stroke Volume 104 ml LVOT CO 10.1 l/min LVOT CI 3.8 l/min/m2 Pulmonic Valve Name Value Normal
[2023-10-30] MEDS: metroNIDAZOLE 500 MG/ISO 100ML 500 MG/100 ML BAG 100 MG IVPB ×3 (01:03→16:50)
[2023-10-30] MEDS: ACETAMINOPHEN 325 MG TABLET 650 MG PO (02:06)
[2023-10-30] MEDS: LEVOTHYROXINE SODIUM 100 MCG TABLET PO (05:30)
[2023-10-30] MEDS: ONDANSETRON INJ 4 MG/2 ML VIAL IV PUSH (05:30)
[2023-10-30 05:44] LABS: Glucose Point of Care 120 mg/dl (65-105)
[2023-10-30 06:10] LABS: Basophils Percent Auto 0.3 % (0.2-1.2); Eosinophils Absolute Auto 0.3 K/mm3 (0-0.3); Eosinophils Percent Auto 3.4 % (0-4.4); Hematocrit 31.1 % (42.0-52.0); Hemoglobin 9.4 g/dL (14.0-18.0); Immature Granulocyte Absolute 0.03 K/mm3 (0.00-0.031); Immature Granulocyte Percent A 0.3 % (0-0.5); Lymphocytes Absolute Auto 1.19 K/mm3 (0.9-3.2); Lymphocytes Percent Auto 13.5 % (18.3-44.2); Mean Corpuscular HGB Conc 30.2 g/dl (32-36); Mean Corpuscular Volume 102.6 fl (80-100); Mean Platelet Volume 10.4 fl (7.4-10.4); Monocytes Absolute Auto 0.8 K/mm3 (0.1-0.6); Monocytes Percent Auto 8.5 % (2.6-8.5); Neutrophils Absolute Auto 6.5 K/mm3 (1.3-6.7); Platelet Count Result 193 k/mm3 (150-375); Red Blood Count 3.03 M/mm3 (4.6-6.20); Red Cell Distribution Width 16.1 % (11.5-14.5); White Blood Count 8.8 K/mm3 (4.5-10.0)
[2023-10-30 06:14] LABS: INR 3.4; Prothrombin Time 37.1 Seconds (11.1-14.7)
[2023-10-30 06:20] LABS: Alanine Aminotransferase 11 U/L (6-50); Albumin Level 3.2 g/dL (3.5-5.1); Alkaline Phosphatase 78 U/L (38-126); Anion Gap 11 mmol/L (8-16); Aspartate Amino Transferase 25 U/L (17-59); Bilirubin,Total 0.5 mg/dL (0.2-1.3); Blood Urea Nitrogen 82 mg/dL (9-20); Calcium 8.4 mg/dL (8.4-10.2); Carbon Dioxide 21 mmol/L (22-30); Chloride 104 mmol/L (98-107); Estimated CRCL calculation 23 ml/min; Estimated Glomerular Filt Rate 17; Glucose 115 mg/dL (65-110); Potassium 3.4 mmol/L (3.4-5.0); Sodium 136 mmol/L (137-145)
[2023-10-30] MEDS: MORPHINE SULFATE (*CRX) 2 MG/ML INJ IV PUSH (07:31)
--- NOTE | 2023-10-30 07:38 | ECG_ITS ---
Measurements Intervals [place] Rate: 120 P: -59 TX: 236 QRS: -65 QRSD: 166 T: 96 QT: 370 QTc: 523 Interpretive Statements ECTOPIC ATRIAL TACHYCARDIA RIGHT BUNDLE BRANCH BLOCK INFERIOR INFARCT, AGE INDETERMINATE ABNORMAL ECG COMPARED TO ECG 10/29/2023 00:54:31 ECTOPIC ATRIAL TACHYCARDIA NOW PRESENT RIGHT BUNDLE BRANCH BLOCK NOW PRESENT INFERIOR INFARCT, AGE INDETERMINATE NOW PRESENT Electronically Signed On 10-30-2023 8:29:37 SCALDER by Raghav Robins D.O.
[2023-10-30 07:55] LABS: Magnesium 2.7 mg/dL (1.6-2.3)
--- NOTE | 2023-10-30 08:19 | PC.NURSE ---
[id number] Dr Rosado notified of patient on tele and heart rate jumped up in 120's and QRS is now wider. Patient's only complaint is nausea. BP 101/66 sat 95% on room air. Will get stat EKG
--- NOTE | 2023-10-30 08:20 | PM.IMPN ---
Progress Note: A&P Assessment and Plan (1) Atrial fibrillation: Qualifiers: Atrial fibrillation type: paroxysmal Qualified Code(s): I48.0 - Paroxysmal atrial fibrillation Code(s): I48.91 - Unspecified atrial fibrillation Status: Acute Assessment and Plan: Patient with AFib with presumably rate related BBB on tele. 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 Possibly inferior AMI so discussed with Cardiology who felt more likely rate related BBB. Previous EKGs reviewed. Consider runs of NSVT. He is off his Imdur due to soft BP. He has been getting [facility]fran [facility] and here. Cards consult. Move to IMU. Stop Zofran. Fluid bolus to help with pressure. Check CXR and Echo. Coumadin on hold. Check daily INR. Mag level normal but potassium low-end at 3.4. Oral potassium once. Check Trop. (2) Epigastric pain: Code(s): R10.13 - Epigastric pain Status: Acute Assessment and Plan: Palpable pain. Probably gastritis or related to his colitis. Add mylanta. Change Protonix to IV. Monitor HH closely. LFTs okay. Check lipase (3) Colitis: Code(s): K52.9 - Noninfective gastroenteritis and colitis, unspecified Status: Acute Assessment and Plan: patient presents with diarrhea. CT scan showing descending colitis. CDiff negative. Other stool studies pending. Continue with ceftriaxone and Flagyl (4) Acute kidney injury superimposed on CKD: Code(s): N17.9 - Acute kidney failure, unspecified; N18.9 - Chronic kidney disease, unspecified Status: Acute Assessment and Plan: Cr 2.4-2.9 in August. Cr 3.5 on admission. Probably related to dehydration from Bumex and recent GI symptoms. Ultrasound showing normal right kidney but left not visualized. Bumex on hold IV fluid was stopped. Fluid bolus today Avoid nephrotoxins Follow UOP, electrolytes and renal function (5) CHF (congestive heart failure): Qualifiers: Heart failure chronicity: unspecified Heart failure type: unspecified Qualified Code(s): I50.9 - Heart failure, unspecified Code(s): I50.9 - Heart failure, unspecified Status: Acute Assessment and Plan: Echo showing EF 20-25% with diastolic dysfunction grade I. Bumex on hold as mentioned above Low-dose midodrine added for blood pressure Continue with Plavix metoprolol, losartan, Hydralazine and Imdur on hold. (6) Coronary artery disease: Code(s): I25.10 - Atherosclerotic heart disease of [place] coronary artery without angina pectoris Status: Acute Assessment and Plan: Hx of coronary stenting x10 in [facility]. No ischemic evaluation performed here. Continue Plavix. Add ASA. (7) Type 2 diabetes mellitus: Qualifiers: Diabetes mellitus salvage determiner insulin use: with salvage determiner use Diabetes mellitus complication status: with circulatory complication Diabetes mellitus complication detail: with other circulatory complications Qualified Code(s): E11.59 - Type 2 diabetes mellitus with other circulatory complications; Z79.4 - [facility] (current) use of insulin Code(s): E11.9 - Type 2 diabetes mellitus without complications Status: Chronic Assessment and Plan: The patient's blood glucose was reviewed on 10/30 Glucose remains well controlled. Continue AccuCheks covering with sliding scale. Hypoglycemia protocol available as needed. Continue to monitor. (8) Osteoarthritis of right hip: Code(s): M16.11 - Unilateral primary osteoarthritis, right hip Status: Acute Assessment and Plan: Right hip x-ray negative for any acute etiology/pathology CT showing moderate right hip OA Continue with Lidoderm patch but stop narcotics since affecting his BP and may be contributing to this nausea (9) Hypothyroidism: Qualifiers: Hypothyroidism type: unspecified Qualified Code(s): E03.9 - Hypothyroidism, unspecified
[2023-10-30 08:38] LABS: Iron 21 ug/dL (49-181)
[2023-10-30 08:49] LABS: Percent Iron Saturation 9 % (20-50)
[2023-10-30 08:51] LABS: Glucose Point of Care 150 mg/dl (65-105)
[2023-10-30] MEDS: ASPIRIN 81 MG CHEWABLE TABLET 324 MG PO (08:52)
[2023-10-30] MEDS: MAG HYDROX/AL HYDROX/SIMETH 30 ML UDC PO (08:52)
[2023-10-30 08:53] LABS: Lactic Acid Reflex 1.1 mmol/L (0.7-2.0)
[2023-10-30] MEDS: PANTOPRAZOLE SODIUM IV 40 MG VIAL IV PUSH ×2 (08:53→21:24)
[2023-10-30] MEDS: LIDOCAINE 5% PATCH 1 PATCH TRANSDERM (08:59)
--- NOTE | 2023-10-30 08:59 | ECG_ITS ---
Measurements Intervals [place] Rate: 97 P: [place]: 0 QRS: -19 QRSD: 128 T: 118 QT: 385 QTc: 489 Interpretive Statements ATRIAL FIBRILLATION IVCD, CONSIDER ATYPICAL LBBB BASELINE ARTIFACT- I, II, AVR, AVL, V6 ABNORMAL ECG COMPARED TO ECG 10/30/2023 07:46:49 ATRIAL FIBRILLATION NOW PRESENT ATYPICAL LEFT BUNDLE BRANCH BLOCK NOW PRESENT Electronically Signed On 10-30-2023 9:56:42 LUMP MACHINE OPERATOR by Raghav Robins D.O.
[2023-10-30 09:09] LABS: Procalcitonin 0.5 ng/mL
[2023-10-30 09:10] LABS: NT Pro B Type Natriuretic Pept 23700 pg/mL (19.9-100)
[2023-10-30 09:11] LABS: CRP 17.1 mg/dL (<1.0)
--- NOTE | 2023-10-30 09:17 | PM.CNNEP ---
Assessment and Plan Assessment and plan (1) Chronic kidney disease, stage 4 (severe): Code(s): N18.4 - Chronic kidney disease, stage 4 (severe) Status: Chronic Assessment and Plan: creatinine had been running ~ 2ish [place] in 2021 due to HTN, DM, CHF/cardiomyopathy, vascular disease, EILEEN/pulmonary hypertension, and age-related change however, with recent last hospitalizations over the last several months, his creatinine has been running higher (in the 3ish range) due to diuresis and need for higher dose of diuretics to maintain his volume status suspect some CKD progression versus the fact that he needs a higher creatinine to achieve relative euvolemia his lower creatinine (high 2ish range) on August 2023 admission may have been dilutional since he was volume overloaded at that time creatinine was 2.9mg/dl on last hospital discharge -- however, he was discharged on a higher dose of diuretics... creatinine 3.5mg/dl on admission diuretics on hold at this time follow trend of labs and UOP (2) Colitis: Code(s): K52.9 - Noninfective gastroenteritis and colitis, unspecified Status: Acute Assessment and Plan: presented with diarrhea CT scan showing descending colitis C Diff negative; other stool studies pending on antibiotics (3) Elevated troponin: Code(s): R77.8 - Other specified abnormalities of plasma proteins Status: Acute Assessment and Plan: no symptoms of chest pain Cardiology consulted continue medical management for now (4) Atrial fibrillation: Qualifiers: Atrial fibrillation type: paroxysmal Qualified Code(s): I48.0 - Paroxysmal atrial fibrillation Code(s): I48.91 - Unspecified atrial fibrillation Status: Acute Assessment and Plan: rate control strategy on anticoagulation with warfarin already continue current therapy (5) Hypertension: Qualifiers: Hypertension type: primary hypertension Qualified Code(s): I10 - Essential (primary) hypertension Code(s): I10 - Essential (primary) hypertension Status: Chronic Assessment and Plan: despite history, BP running on the low/soft side BP medications on hold started on midodrine follow trend of hemodynamics (6) Type 2 diabetes mellitus: Qualifiers: Diabetes mellitus complication detail: with other circulatory complications Diabetes mellitus complication status: with circulatory complication Diabetes mellitus regional intermodal truck driver insulin use: with regional intermodal truck driver use Qualified Code(s): E11.59 - Type 2 diabetes mellitus with other circulatory complications; Z79.4 - detention (current) use of insulin Code(s): E11.9 - Type 2 diabetes mellitus without complications Status: Chronic Assessment and Plan: follow accu-cheks glycemic control per hospitalists I will continue follow the patient with you while he remains hospitalized and make further recommendations as needed. Thank you for allowing me to participate in care this patient. History of Present Illness Reason for Consult Consult date: 10/30/23 Reason for consult: acute renal failure (on chronic kidney disease) Chief Complaint Chief complaint: Colitis, Hypotension, Right Hip Pain History of Present Illness Narrative: The patient is a 78-year-old male with an extensive past medical history as outlined below who presented to [facility] Emergency Room from his assisted living facility via EMS for a multitude of complaints including nausea, abdominal pain, and neck pain. On presentation to the ER, his main complaint was left neck pain and nausea. His left neck pain seems to be somewhat of a chronic issue but seemed to be little bit worse in the last few days. However, his nausea has been associated with a decrease in appetite for last several days which is a new symptom. The nausea has been associated with generalized abdominal discomfort
--- NOTE | 2023-10-30 09:17 | P.CONNP_ITS ---
Assessment and Plan Assessment and plan (1) Chronic kidney disease, stage 4 (severe): Code(s): N18.4 - Chronic kidney disease, stage 4 (severe) Status: Chronic Assessment and Plan: * creatinine had been running ~ 2ish [place] in 2021 * due to HTN, DM, CHF/cardiomyopathy, vascular disease, EILEEN/pulmonary hypertension, and age-related change * however, with recent last hospitalizations over the last several months, his creatinine has been running higher (in the 3ish range) due to diuresis and need for higher dose of diuretics to maintain his volume status * suspect some CKD progression versus the fact that he needs a higher creatinine to achieve relative euvolemia * his lower creatinine (high 2ish range) on August 2023 admission may have been dilutional since he was volume overloaded at that time * creatinine was 2.9mg/dl on last hospital discharge -- however, he was discharg ed on a higher dose of diuretics... * creatinine 3.5mg/dl on admission * diuretics on hold at this time * follow trend of labs and UOP (2) Colitis: Code(s): K52.9 - Noninfective gastroenteritis and colitis, unspecified Status: Acute Assessment and Plan: * presented with diarrhea * CT scan showing descending colitis * C Diff negative; other stool studies pending * on antibiotics (3) Elevated troponin: Code(s): R77.8 - Other specified abnormalities of plasma proteins Status: Acute Assessment and Plan: * no symptoms of chest pain * Cardiology consulted * continue medical management for now (4) Atrial fibrillation: Qualifiers: Atrial fibrillation type: paroxysmal Qualified Code(s): I48.0 - Paroxysmal atrial fibrillation Code(s): I48.91 - Unspecified atrial fibrillation Status: Acute Assessment and Plan: * rate control strategy * on anticoagulation with warfarin already * continue current therapy (5) Hypertension: Qualifiers: Hypertension type: primary hypertension Qualified Code(s): I10 - Essential (primary) hypertension Code(s): I10 - Essential (primary) hypertension Status: Chronic Assessment and Plan: * despite history, BP running on the low/soft side * BP medications on hold * started on midodrine * follow trend of hemodynamics (6) Type 2 diabetes mellitus: Qualifiers: Diabetes mellitus complication detail: with other circulatory complications Diabetes mellitus complication status: with circulatory complication Diabetes mellitus terminologist insulin use: with terminologist use Qualified Code(s): E11.59 - Type 2 diabetes mellitus with other circulatory complications; Z79.4 - [facility] (current) use of insulin Code(s): E11.9 - Type 2 diabetes mellitus without complications Status: Chronic Assessment and Plan: * follow accu-cheks * glycemic control per hospitalists I will continue follow the patient with you while he remains hospitalized and make further recommendations as needed. Thank you for allowing me to participate in care this patient. History of Present Illness Reason for Consult Consult date: 10/30/23 Reason for consult: acute renal failure (on chronic kidney disease) Chief Complaint Chief complaint: Colitis, Hypotension, Right Hip Pain History of Present Illness Narrative: The patient is a 78-year-old male with an extensive past medical history as outlined below who presented to [facility] Emergency Room from his assisted living facility via EMS for a multitude of complain
[2023-10-30] MEDS: SODIUM CHLORIDE 0.9% IV 250 ML 999 ML IV CONT (09:20)
[2023-10-30] MEDS: ASCORBIC ACID 500 MG TABLET 1000 MG PO (09:52)
[2023-10-30] MEDS: CLOPIDOGREL BISULFATE 75 MG TABLET PO (09:52)
[2023-10-30] MEDS: AMIODARONE HCL 200 MG TABLET PO (09:52)
[2023-10-30] MEDS: MIDODRINE HCL 2.5 MG TABLET PO ×3 (09:52→16:40)
[2023-10-30] MEDS: allopurinoL 100 MG TABLET PO (09:52)
[2023-10-30 09:53] LABS: Free T4 Free Thyroxine Reflex 1.52 ng/dL (0.78-2.19)
[2023-10-30] MEDS: ACIDOPHILUS/BULGARICUS CHEWABLE TABLET 1 TABLET PO ×2 (09:53→16:40)
--- NOTE | 2023-10-30 09:59 | PM.CNCAR ---
Assessment and Plan Assessment and plan (1) Elevated troponin: Code(s): R77.8 - Other specified abnormalities of plasma proteins Status: Acute Assessment and Plan: This morning, patient reported nausea, diffuse abdominal pain, including epigastric pain. NO chest pain. EKG was obtained that showed ectopic atrial tachycardia with a rate of 120bpm, RBBB, which is different than his admission EKG, old inferior infarct. We were called to evaluate for STEMI. No STEMI criteria seen on EKG. His heart rates improved, and his repeat EKG shows atrial fibrillation with IVCD, similar to his admission EKG. Patient reports abdominal pain upon my examination and blurry vision which he attributes to the Zofran, but denies any chest pain. Troponin is elevated to 1.830. Will continue to trend. Start ASA, continue Plavix, will resume low dose beta matt. INR is currently supratherapeutic -- once lower, recommend Heparin drip. Obtain his cardiology records from Dr. Wheeler's office. If he does need cardiac catheterization, he will be at higher risk for complications given JOSE F on CKD, supratherapeutic INR (2) Coronary artery disease: Code(s): I25.10 - Atherosclerotic heart disease of [place] coronary artery without angina pectoris Status: Acute Assessment and Plan: As above. (3) Hypotension: Qualifiers: Hypotension type: hypotension due to hypovolemia Qualified Code(s): E86.1 - Hypovolemia Code(s): I95.9 - Hypotension, unspecified Status: Acute Assessment and Plan: Currently on Midodrine (4) Acute kidney injury superimposed on CKD: Code(s): N17.9 - Acute kidney failure, unspecified; N18.9 - Chronic kidney disease, unspecified Status: Acute Assessment and Plan: Nephrology consulted (5) Atrial fibrillation: Qualifiers: Atrial fibrillation type: paroxysmal Qualified Code(s): I48.0 - Paroxysmal atrial fibrillation Code(s): I48.91 - Unspecified atrial fibrillation Status: Acute Assessment and Plan: Start low-dose beta matt for rate control. Anticoagulation currently on hold due to supratherpeutic INR. (6) Colitis: Code(s): K52.9 - Noninfective gastroenteritis and colitis, unspecified Status: Acute Assessment and Plan: As per primary team. (7) CHF (congestive heart failure): Qualifiers: Heart failure chronicity: chronic Heart failure type: combined systolic and diastolic Qualified Code(s): I50.42 - Chronic combined systolic (congestive) and diastolic (congestive) heart failure Code(s): I50.9 - Heart failure, unspecified Status: Acute Assessment and Plan: Appears euvolemic. His diuretics are on hold due to concern for hypovolemia. Plan Recommendations and Plan discussed with Hospitalist. History of Present Illness History of Present Illness Consult date/time: 10/30/23 09:59 Requesting physician: Sascha Rosado MD Consult reason: Other (ECG Changes) Reason For Visit: Colitis, Hypotension, Right Hip Pain Narrative: We are consulted by Dr. Rosado for ECG changes. This is a 78 year old male with CAD s/p multiple stents, chronic heart failure with reduced ejection fraction with LVEF 20-25%, atrial fibrillation on Warfarin, chronic kidney disease stage 4, diabetes who presented on 10/29 for left neck pain, nausea, decreased appetite, generalized abdominal discomfort, diarrhea. ER workup showed colitis on CT. He was admitted for further workup and treatment. Patient denies any chest pain. Patient noted to be hypotensive on arrival, thought to be from hypovolemia. His Warfarin has been placed on hold for supratherapeutic INR. This morning, patient reported nausea, diffuse abdominal pain, including epigastric pain. NO chest pain. EKG was obtained that showed ectopic atrial tachycardia with a rate of 120bpm, RBBB, which is different than his admission EKG, old inferior infarct. We wer
[2023-10-30 10:18] LABS: Lipase 29 U/L (23-300)
[2023-10-30 10:22] LABS: Folic Acid 12.1 ng/mL (2.76->20)
[2023-10-30] MEDS: CALCIUM CARBONATE (OSCAL) 500 MG TABLET PO ×2 (11:42→16:40)
[2023-10-30] MEDS: METOPROLOL SUCCINATE EXT REL 25 MG TABCR PO (11:42)
[2023-10-30] MEDS: MAGNESIUM OXIDE 400 MG TABLET PO ×2 (11:42→21:24)
[2023-10-30] MEDS: FLUTICASONE PROPIONATE 0.05% NA SPR 16 GM BTL (*BKC) 1 SPRAY NASAL (11:46)
[2023-10-30 11:58] LABS: Glucose Point of Care 152 mg/dl (65-105)
[2023-10-30 12:02] LABS: Total Triiodothyronine (T3) 0.56 NG/ML (0.97-1.69)
[2023-10-30 16:36] LABS: Glucose Point of Care 150 mg/dl (65-105)
[2023-10-30] MEDS: FERROUS SULFATE 325 MG TABLET DR PO (16:40)
[2023-10-30] MEDS: PROMETHAZINE HCL 25 MG TABLET PO (16:42)
--- NOTE | 2023-10-30 19:56 | PC.NURSE ---
[id number]- received pt from [facility] to [id number] pt stated nausea better, stated still has pain in middle of abdomen- denied chest pain/discomfort , troponin / bnp results called to doctor sarah- md will put in additional orders
[2023-10-30 19:57] LABS: Glucose Point of Care 171 mg/dl (65-105)
[2023-10-30] MEDS: INSULIN GLARGINE (*BKC) 100 UNITS/ML SUB-Q (21:23)
[2023-10-30] MEDS: DOXAZOSIN MESYLATE 2 MG TABLET PO (21:23)
[2023-10-31] VITALS (18 sets, daily range): BP systolic 99–113; BP diastolic 45–77; PULSE 70–95; RESP 16–18; TEMP 36.1–36.8; O2SAT 95–97
[2023-10-31] MEDS: metroNIDAZOLE 500 MG/ISO 100ML 500 MG/100 ML BAG 100 MG IVPB ×2 (00:32→08:50)
[2023-10-31 05:27] LABS: INR 3.3; Prothrombin Time 36.2 Seconds (11.1-14.7)
[2023-10-31] MEDS: LEVOTHYROXINE SODIUM 100 MCG TABLET PO (05:47)
[2023-10-31 08:38] LABS: Glucose Point of Care 149 mg/dl (65-105)
[2023-10-31] MEDS: LIDOCAINE 5% PATCH 1 PATCH TRANSDERM (08:48)
[2023-10-31] MEDS: allopurinoL 100 MG TABLET PO (08:48)
[2023-10-31] MEDS: PANTOPRAZOLE SODIUM IV 40 MG VIAL IV PUSH ×2 (08:48→20:07)
[2023-10-31] MEDS: ASCORBIC ACID 500 MG TABLET 1000 MG PO (08:48)
[2023-10-31] MEDS: ASPIRIN 81 MG ENTERIC TABLET PO (08:49)
[2023-10-31] MEDS: CLOPIDOGREL BISULFATE 75 MG TABLET PO (08:49)
[2023-10-31] MEDS: MIDODRINE HCL 2.5 MG TABLET PO ×3 (08:49→16:31)
[2023-10-31] MEDS: AMIODARONE HCL 200 MG TABLET PO (08:49)
[2023-10-31] MEDS: ACIDOPHILUS/BULGARICUS CHEWABLE TABLET 1 TABLET PO ×2 (08:49→16:31)
[2023-10-31] MEDS: MAGNESIUM OXIDE 400 MG TABLET PO ×2 (10:18→22:09)
--- NOTE | 2023-10-31 10:23 | PC.NURSE ---
AM BP 99/45. Rechecked 1 hour after Midodrine at 1015, BP 102/48. Dr. Lindquist made aware. Metoprolol held.
--- NOTE | 2023-10-31 11:15 | PM.PNCARD ---
Progress Note: A&P Assessment and Plan (1) Elevated troponin: Code(s): R77.8 - Other specified abnormalities of plasma proteins Status: Acute Assessment and Plan: On 10/30, patient reported nausea, diffuse abdominal pain, including epigastric pain. NO chest pain. EKG was obtained that showed ectopic atrial tachycardia vs SVT with a rate of 120bpm, RBBB, which is different than his admission EKG. We were called to evaluate for STEMI. No STEMI criteria seen on EKG. His heart rates improved, and his repeat EKG shows atrial fibrillation with IVCD, similar to his admission EKG. Patient is without any chest pain. Troponin trend of 1.830, 1.7, 1.78 so overall flat. His troponins are more elevated compared to last hospitalization, however, his renal function is also worse now compared to prior. Continue ASA, continue Plavix, continue beta matt. INR is currently supratherapeutic -- once lower, recommend Heparin drip. Obtain his cardiology records from Dr. Wheeler's office. I do not suspect that he had an acute coronary event, however, cannot completely rule out at this point. He does not have any chest pain which is reassuring. Will continue with medical management for now. If he does need cardiac catheterization, he will be at higher risk for complications given JOSE F on CKD, supratherapeutic INR, multiple significant co-morbidities. (2) Coronary artery disease: Code(s): I25.10 - Atherosclerotic heart disease of [place] coronary artery without angina pectoris Status: Acute Assessment and Plan: As above. (3) Hypotension: Qualifiers: Hypotension type: hypotension due to hypovolemia Qualified Code(s): E86.1 - Hypovolemia Code(s): I95.9 - Hypotension, unspecified Status: Acute Assessment and Plan: Stable, currently stable on Midodrine (4) Acute kidney injury superimposed on CKD: Code(s): N17.9 - Acute kidney failure, unspecified; N18.9 - Chronic kidney disease, unspecified Status: Acute Assessment and Plan: Nephrology consulted (5) Atrial fibrillation: Qualifiers: Atrial fibrillation type: paroxysmal Qualified Code(s): I48.0 - Paroxysmal atrial fibrillation Code(s): I48.91 - Unspecified atrial fibrillation Status: Acute Assessment and Plan: Continue Metoprolol. Anticoagulation currently on hold due to supratherapeutic INR. (6) Colitis: Code(s): K52.9 - Noninfective gastroenteritis and colitis, unspecified Status: Acute Assessment and Plan: As per primary team. Still having abdominal pain. (7) CHF (congestive heart failure): Qualifiers: Heart failure chronicity: unspecified Heart failure type: unspecified Qualified Code(s): I50.9 - Heart failure, unspecified Code(s): I50.9 - Heart failure, unspecified Status: Acute Assessment and Plan: His diuretics are on hold due to concern for hypovolemia. Will need to eventually restart diuretic. Subjective Date/time seen: 10/31/23 11:15 Interval history: Reason for visit: Atrial fibrillation, elevated troponin HPI: We are consulted by Dr. Rosado for ECG changes. This is a 78 year old male with CAD s/p multiple stents, chronic heart failure with reduced ejection fraction with LVEF 20-25%, atrial fibrillation on Warfarin, chronic kidney disease stage 4, diabetes who presented on 10/29 for left neck pain, nausea, decreased appetite, generalized abdominal discomfort, diarrhea. ER workup showed colitis on CT. He was admitted for further workup and treatment. Patient denies any chest pain. Patient noted to be hypotensive on arrival, thought to be from hypovolemia. His Warfarin has been placed on hold for supratherapeutic INR. This morning, patient reported nausea, diffuse abdominal pain, including epigastric pain. NO chest pain. EKG was obtained that showed ectopic atrial tachycardia with a rate of 120bpm, RBBB, which is different than his admiss
[2023-10-31 12:09] LABS: Glucose Point of Care 173 mg/dl (65-105)
[2023-10-31] MEDS: CALCIUM CARBONATE (OSCAL) 500 MG TABLET PO ×2 (12:40→16:31)
--- NOTE | 2023-10-31 13:31 | P.PNNP_ITS ---
Progress Note: A&P Assessment and Plan (1) Chronic kidney disease, stage 4 (severe): Code(s): N18.4 - Chronic kidney disease, stage 4 (severe) Status: Chronic Assessment and Plan: * creatinine had been running ~ 2ish [place] in 2021 * due to HTN, DM, CHF/cardiomyopathy, vascular disease, EILEEN/pulmonary hypertension, and age-related change * however, with recent last hospitalizations over the last several months, his creatinine has been running higher (in the 3ish range) due to diuresis and need for higher dose of diuretics to maintain his volume status * suspect some CKD progression versus the fact that he needs a higher creatinine to achieve relative euvolemia * his lower creatinine (high 2ish range) on August 2023 admission may have been dilutional since he was volume overloaded at that time * creatinine was 2.9mg/dl on last hospital discharge -- however, he was discharged on a higher dose of diuretics... * creatinine 3.5mg/dl on admission * diuretics on hold at this time * follow trend of labs and UOP (2) Colitis: Code(s): K52.9 - Noninfective gastroenteritis and colitis, unspecified Status: Acute Assessment and Plan: * presented with diarrhea * CT scan showing descending colitis * C Diff negative; other stool studies pending * on antibiotics (3) Elevated troponin: Code(s): R77.8 - Other specified abnormalities of plasma proteins Status: Acute Assessment and Plan: * no symptoms of chest pain * Cardiology recommendations noted * continue medical management for now (4) Atrial fibrillation: Qualifiers: Atrial fibrillation type: paroxysmal Qualified Code(s): I48.0 - Paroxysmal atrial fibrillation Code(s): I48.91 - Unspecified atrial fibrillation Status: Acute Assessment and Plan: * rate control strategy * on anticoagulation with warfarin already * continue current therapy (5) Hypertension: Qualifiers: Hypertension type: primary hypertension Qualified Code(s): I10 - Es sential (primary) hypertension Code(s): I10 - Essential (primary) hypertension Status: Chronic Assessment and Plan: * despite history, BP running on the low/soft side * BP medications on hold * started on midodrine * follow trend of hemodynamics (6) Type 2 diabetes mellitus: Qualifiers: Diabetes mellitus group home insulin use: with group home use Diabetes mellitus complication status: with circulatory complication Diabetes mellitus complication detail: with other circulatory complications Qualified Code(s): E11.59 - Type 2 diabetes mellitus with other circulatory complications; Z79.4 - long term care pharmacist (current) use of insulin Code(s): E11.9 - Type 2 diabetes mellitus without complications Status: Chronic Assessment and Plan: * follow accu-cheks * glycemic control per hospitalists Will continue to follow. Subjective Date/time seen: 10/31/23 13:31 Interval history: Follow-up for chronic kidney disease (JOSE F on CKD versus progression of chronic kidney disease) Reports that his stomach/abdomen feels full and he think he has gained some water weight since his admission given his diuretic have been on hold; denies any shortness of breath or chest pain; renal function relatively stable. Exam Narrative: General: elderly male in NAD Heart:IRRR, normal S1 and S2; no rub Lungs: coarse breath sounds and decreased at bases Abdomen: soft, +TTP, positive bowel
--- NOTE | 2023-10-31 13:31 | PM.PNNEP ---
Progress Note: A&P Assessment and Plan (1) Chronic kidney disease, stage 4 (severe): Code(s): N18.4 - Chronic kidney disease, stage 4 (severe) Status: Chronic Assessment and Plan: creatinine had been running ~ 2ish [place] in 2021 due to HTN, DM, CHF/cardiomyopathy, vascular disease, EILEEN/pulmonary hypertension, and age-related change however, with recent last hospitalizations over the last several months, his creatinine has been running higher (in the 3ish range) due to diuresis and need for higher dose of diuretics to maintain his volume status suspect some CKD progression versus the fact that he needs a higher creatinine to achieve relative euvolemia his lower creatinine (high 2ish range) on August 2023 admission may have been dilutional since he was volume overloaded at that time creatinine was 2.9mg/dl on last hospital discharge -- however, he was discharged on a higher dose of diuretics... creatinine 3.5mg/dl on admission diuretics on hold at this time follow trend of labs and UOP (2) Colitis: Code(s): K52.9 - Noninfective gastroenteritis and colitis, unspecified Status: Acute Assessment and Plan: presented with diarrhea CT scan showing descending colitis C Diff negative; other stool studies pending on antibiotics (3) Elevated troponin: Code(s): R77.8 - Other specified abnormalities of plasma proteins Status: Acute Assessment and Plan: no symptoms of chest pain Cardiology recommendations noted continue medical management for now (4) Atrial fibrillation: Qualifiers: Atrial fibrillation type: paroxysmal Qualified Code(s): I48.0 - Paroxysmal atrial fibrillation Code(s): I48.91 - Unspecified atrial fibrillation Status: Acute Assessment and Plan: rate control strategy on anticoagulation with warfarin already continue current therapy (5) Hypertension: Qualifiers: Hypertension type: primary hypertension Qualified Code(s): I10 - Essential (primary) hypertension Code(s): I10 - Essential (primary) hypertension Status: Chronic Assessment and Plan: despite history, BP running on the low/soft side BP medications on hold started on midodrine follow trend of hemodynamics (6) Type 2 diabetes mellitus: Qualifiers: Diabetes mellitus custodial insulin use: with ocean transportation intermediary use Diabetes mellitus complication status: with circulatory complication Diabetes mellitus complication detail: with other circulatory complications Qualified Code(s): E11.59 - Type 2 diabetes mellitus with other circulatory complications; Z79.4 - salvage determiner (current) use of insulin Code(s): E11.9 - Type 2 diabetes mellitus without complications Status: Chronic Assessment and Plan: follow accu-cheks glycemic control per hospitalists Will continue to follow. Subjective Date/time seen: 10/31/23 13:31 Interval history: Follow-up for chronic kidney disease (JOSE F on CKD versus progression of chronic kidney disease) Reports that his stomach/abdomen feels full and he think he has gained some water weight since his admission given his diuretic have been on hold; denies any shortness of breath or chest pain; renal function relatively stable. Exam Narrative: General: elderly male in NAD Heart:IRRR, normal S1 and S2; no rub Lungs: coarse breath sounds and decreased at bases Abdomen: soft, +TTP, positive bowel sounds Extremities: no cyanosis or clubbing; trace edema Skin: warm and dry Objective Data Vital Signs Vital Signs: Vital Signs Temp Pulse Resp BP Pulse Ox O2 Del Method 10/31/23 12:00 95 Room Air 10/31/23 12:00 90 10/31/23 11:42 102/65 10/31/23 08:00 95 Room Air 10/31/23 10:00 85 10/31/23 08:00 88 10/31/23 10:15 102/48 L 10/31/23 08:49 91 10/31/23 07:29 97.3 F L 70 16 99/45 L
--- NOTE | 2023-10-31 15:48 | PM.IMPN ---
Progress Note: A&P Assessment and Plan (1) Atrial fibrillation: Qualifiers: Atrial fibrillation type: paroxysmal Qualified Code(s): I48.0 - Paroxysmal atrial fibrillation Code(s): I48.91 - Unspecified atrial fibrillation Status: Acute Assessment and Plan: Patient with AFib with presumably rate related BBB on tele. 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 Possibly inferior AMI so discussed with Cardiology who felt more likely rate related BBB. Previous EKGs reviewed. Consider runs of NSVT. He is off his Imdur due to soft BP. He has been getting Zofran at the [facility] and here. Cards consult. Move to IMU. Stop Zofran. Fluid bolus to help with pressure. Check CXR and Echo. Coumadin on hold. Check daily INR. Mag level normal but potassium low-end at 3.4. Oral potassium once. Check Trop. (2) Epigastric pain: Code(s): R10.13 - Epigastric pain Status: Acute Assessment and Plan: Palpable pain. Probably gastritis or related to his colitis. Add mylanta. Change Protonix to IV. Monitor HH closely. LFTs okay. Check lipase (3) Colitis: Code(s): K52.9 - Noninfective gastroenteritis and colitis, unspecified Status: Acute Assessment and Plan: patient presents with diarrhea. CT scan showing descending colitis. CDiff negative. Other stool studies pending. Continue with ceftriaxone and Flagyl (4) Acute kidney injury superimposed on CKD: Code(s): N17.9 - Acute kidney failure, unspecified; N18.9 - Chronic kidney disease, unspecified Status: Acute Assessment and Plan: Cr 2.4-2.9 in August. Cr 3.5 on admission. Probably related to dehydration from Bumex and recent GI symptoms. Ultrasound showing normal right kidney but left not visualized. Bumex on hold IV fluid was stopped. Fluid bolus today Avoid nephrotoxins Follow UOP, electrolytes and renal function (5) CHF (congestive heart failure): Qualifiers: Heart failure chronicity: unspecified Heart failure type: unspecified Qualified Code(s): I50.9 - Heart failure, unspecified Code(s): I50.9 - Heart failure, unspecified Status: Acute Assessment and Plan: Echo showing EF 20-25% with diastolic dysfunction grade I. Bumex on hold as mentioned above Low-dose midodrine added for blood pressure Continue with Plavix metoprolol, losartan, Hydralazine and Imdur on hold. 10/31: looks more fluid overloaded, initiate IV lasix (6) Coronary artery disease: Code(s): I25.10 - Atherosclerotic heart disease of [place] coronary artery without angina pectoris Status: Acute Assessment and Plan: Hx of coronary stenting x10 in [facility]. No ischemic evaluation performed here. Continue Plavix. Add ASA. 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 Continue AccuCheks covering with sliding scale. Hypoglycemia protocol available as needed. Continue to monitor. (8) Osteoarthritis of right hip: Code(s): M16.11 - Unilateral primary osteoarthritis, right hip Status: Acute Assessment and Plan: Right hip x-ray negative for any acute etiology/pathology CT showing moderate right hip OA Continue with Lidoderm patch but stop narcotics since affecting his BP and may be contributing to this nausea (9) Hypothyroidism: Qualifiers: Hypothyroidism type: unspecified Quali
[2023-10-31 16:14] LABS: Glucose Point of Care 227 mg/dl (65-105)
[2023-10-31] MEDS: FUROSEMIDE INJ 40 MG/4 ML VIAL IV PUSH ×2 (16:30→22:08)
[2023-10-31] MEDS: FERROUS SULFATE 325 MG TABLET DR PO (16:31)
[2023-10-31] MEDS: INSULIN ASPART (*BKC) 100 UNITS/ML SUB-Q (16:32)
[2023-10-31] MEDS: AMOXICILLIN/CLAVULANATE K 500-125 MG TAB 1 TABLET PO (20:05)
[2023-10-31 20:06] LABS: Glucose Point of Care 208 mg/dl (65-105)
[2023-10-31] MEDS: DOXAZOSIN MESYLATE 2 MG TABLET PO (20:07)
[2023-10-31] MEDS: INSULIN GLARGINE (*BKC) 100 UNITS/ML SUB-Q (20:13)
--- NOTE | 2023-10-31 21:58 | PM.IMHP ---
H&P: HPI History of Present Illness Date/Time: 10/31/23 21:58 [facility] Past Medical History Medical History Aortic stenosis, mild Atrial fibrillation Chronic anticoagulation Chronic kidney disease, stage 4 (severe) Combined systolic and diastolic congestive heart failure He follows with Dr. Wheeler [facility] most reconnect 0 08/22/2023: Mild left ventricular enlargement, EF 20-25%, mild left ventricular wall thickness increased, grade 1 diastolic dysfunction, akinesis and hypokinesis of multiple house, mild aortic valve stenosis peak velocity 254 mean gradient 11 valve area 2.2, moderate aortic valve regurgitation, moderate mitral valve regurgitation, mild tricuspid valve regurgitation, moderate pulmonary hypertension Coronary artery disease Hypertension Hypothyroidism Insulin dependent type 2 diabetes mellitus Myocardial infarct, old Obstructive sleep apnea The patient denies ever having a sleep study or being told he has sleep apnea Pulmonary hypertension Surgical History Surgical History History of cholecystectomy History of open reduction and internal fixation (ORIF) procedure Repair of left foot and femur fractures. History of percutaneous coronary intervention Family History Family History Father Cerebrovascular accident Diabetes mellitus Mother Diabetes mellitus Social History Social History Social History: Healthcare power of diabetes physician: Bhanu Yadav, son. Code status: DNR/DNI (however patient reports he would be amenable to synchronized cardioversion if needed for his AFib) Years smoked: 20 Smoking status: Former smoker Tobacco type: cigars Second hand tobacco smoke exposure: No Additional smoking assessment comments: Cigars for 20 years Alcohol intake: never Substance use: never Substance use type: painkillers Do You Feel Safe in your Home?: Yes Lack of Transportation: No Lack of Food: Never True Current Housing: I Have Housing Concerned About Future Housing: No Difficulty Paying Gas/Electric Bills: No Difficulty Paying for Meds: No Currently Unemployed: No Education: High School Diploma/GED Difficulty w/ Childcare or Family Care: No Additional living arrangements comments: with 2 sons. He and his have been since 1967. They live in [facility]. They have lived there since 2019. He ambulates with a walker and also has a scooter and manual wheelchair available. 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 Spiritual care concerns: No Meds Home Medications and Allergies Home Medications Medication Instructions Recorded Confirmed Type clopidogrel 75 mg tablet 75 mg PO DAILY 04/12/21 10/29/23 History insulin detemir U-100 100 unit/mL 15 unit subcut HS 04/12/21 10/29/23 History subcutaneous solution (Levemir U-100 Insulin) isosorbide mononitrate 120 mg 120 mg PO DAILY 04/12/21 10/29/23 History tablet,extended release 24 hr acetaminophen 325 mg tablet 650 mg PO BID PRN Pain (Scale 01/27/22 10/29/23 History Score 1-3) alirocumab 150 mg/mL subcutaneous 150 mg subcut [id number] 01/27/22 10/29/23 History pen injector (Praluent Pen) amiodarone 200 mg tablet 200 mg PO DAILY 01/27/22 10/29/23 History hydralazine 100 mg tablet 50 mg PO TID 01/27/22 10/29/23 History levothyroxine 112 mcg tablet 100 mcg PO DAILY 01/27/22 10/29/23 History (Euthyrox) losartan 50 mg tablet 25 mg PO DAILY 01/27/22 10/29/23 History magnesium oxide 400 mg (241.3 mg 400 mg PO BID 01/27/22 10/29/23 History magnesium) tablet metoprolol succinate 25 mg 25 mg PO DAILY 01/27/22 10/29/23 History tablet,extended release 24 hr pantoprazole 40 mg tablet,delayed 40 mg PO DAILY 01/27/22
[2023-10-31] MEDS: metroNIDAZOLE 500 MG TABLET PO (22:08)
[2023-10-31] MEDS: PROMETHAZINE HCL 25 MG TABLET PO (22:28)
[2023-11-01] VITALS (19 sets, daily range): BP systolic 84–117; BP diastolic 45–68; PULSE 70–121; RESP 16–20; TEMP 36.3–37.2; O2SAT 90–97
[2023-11-01 05:09] LABS: Basophils Absolute Auto 0.1 K/mm3 (0.0-0.1); Basophils Percent Auto 0.7 % (0.2-1.2); Eosinophils Absolute Auto 0.5 K/mm3 (0-0.3); Eosinophils Percent Auto 5.5 % (0-4.4); Hematocrit 30.2 % (42.0-52.0); Immature Granulocyte Absolute 0.05 K/mm3 (0.00-0.031); Immature Granulocyte Percent A 0.5 % (0-0.5); Lymphocytes Absolute Auto 1.24 K/mm3 (0.9-3.2); Lymphocytes Percent Auto 13.2 % (18.3-44.2); Mean Corpuscular HGB Conc 29.8 g/dl (32-36); Mean Corpuscular Hemoglobin 30.4 pg (26-34); Mean Platelet Volume 11.1 fl (7.4-10.4); Monocytes Absolute Auto 0.7 K/mm3 (0.1-0.6); Monocytes Percent Auto 7.6 % (2.6-8.5); Neutrophils Absolute Auto 6.8 K/mm3 (1.3-6.7); Neutrophils Percent Auto 72.5 % (45.5-73.1); Platelet Count Result 216 k/mm3 (150-375); Red Blood Count 2.96 M/mm3 (4.6-6.20); Red Cell Distribution Width 15.9 % (11.5-14.5); White Blood Count 9.4 K/mm3 (4.5-10.0)
[2023-11-01 05:22] LABS: INR 2.6; Prothrombin Time 29.5 Seconds (11.1-14.7)
[2023-11-01 05:23] LABS: Alanine Aminotransferase 12 U/L (6-50); Albumin Level 2.9 g/dL (3.5-5.1); Alkaline Phosphatase 79 U/L (38-126); Anion Gap 10 mmol/L (8-16); Aspartate Amino Transferase 24 U/L (17-59); Bilirubin,Total 0.4 mg/dL (0.2-1.3); Blood Urea Nitrogen 86 mg/dL (9-20); Calcium 8.1 mg/dL (8.4-10.2); Carbon Dioxide 23 mmol/L (22-30); Chloride 101 mmol/L (98-107); Estimated CRCL calculation 21 ml/min; Estimated Glomerular Filt Rate 16; Glucose 148 mg/dL (65-110); Magnesium 2.6 mg/dL (1.6-2.3); Phosphorus 3.4 mg/dL (2.5-4.5); Potassium 3.4 mmol/L (3.4-5.0); Sodium 134 mmol/L (137-145)
[2023-11-01] MEDS: LEVOTHYROXINE SODIUM 100 MCG TABLET PO (05:38)
[2023-11-01] MEDS: metroNIDAZOLE 500 MG TABLET PO (05:38)
[2023-11-01 05:43] LABS: Platelet Estimate Adequate (Adequate)
[2023-11-01 05:44] LABS: Anisocytosis 1+ (NORMAL); Ovalocytes 1+ (NORMAL); Schistocytes Rare (NORMAL); Tear Drop Cells 1+ (NORMAL)
[2023-11-01 07:33] LABS: Glucose Point of Care 130 mg/dl (65-105)
[2023-11-01] MEDS: LIDOCAINE 5% PATCH 1 PATCH TRANSDERM (09:09)
[2023-11-01] MEDS: PANTOPRAZOLE SODIUM IV 40 MG VIAL IV PUSH (09:09)
[2023-11-01] MEDS: FUROSEMIDE INJ 40 MG/4 ML VIAL IV PUSH (09:09)
[2023-11-01] MEDS: HYDROcodone/acetaminophen (*CRX) 5-325 MG TABLET 1 TAB PO (09:09)
[2023-11-01] MEDS: AMIODARONE HCL 200 MG TABLET PO (09:10)
[2023-11-01] MEDS: CLOPIDOGREL BISULFATE 75 MG TABLET PO (09:11)
[2023-11-01] MEDS: MIDODRINE HCL 2.5 MG TABLET PO (09:11)
[2023-11-01] MEDS: PROMETHAZINE HCL 25 MG TABLET PO (09:11)
--- NOTE | 2023-11-01 10:31 | PM.PNCARD ---
Progress Note: A&P Assessment and Plan (1) CHF (congestive heart failure): Qualifiers: Heart failure chronicity: unspecified Heart failure type: unspecified Qualified Code(s): I50.9 - Heart failure, unspecified Code(s): I50.9 - Heart failure, unspecified Status: Acute Assessment and Plan: Known HFrEF. Started on IV Lasix, agree with diuresis. Will monitor I/Os and adjust diuretic dose accordingly. (2) Elevated troponin: Code(s): R77.8 - Other specified abnormalities of plasma proteins Status: Acute Assessment and Plan: On 10/30, patient reported nausea, diffuse abdominal pain, including epigastric pain. NO chest pain. EKG was obtained that showed ectopic atrial tachycardia vs SVT with a rate of 120bpm, RBBB, which is different than his admission EKG. We were called to evaluate for STEMI. No STEMI criteria seen on EKG. His heart rates improved, and his repeat EKG shows atrial fibrillation with IVCD, similar to his admission EKG. Patient is without any chest pain. This was likely a rate related bundle branch blod. Troponin trend of 1.830, 1.7, 1.78 so overall flat. His troponins are more elevated compared to last hospitalization, however, his renal function is also worse now compared to prior. Continue ASA, continue Plavix, continue beta matt. Obtain his cardiology records from Dr. Wheeler's office. I do not suspect that he had an acute coronary event, however, cannot completely rule out. He does not have any chest pain which is reassuring. Will continue with medical management for now. If he does need cardiac catheterization, he will be at higher risk for complications given JOSE F on CKD, supratherapeutic INR, multiple significant co-morbidities. (3) Coronary artery disease: Code(s): I25.10 - Atherosclerotic heart disease of [place] coronary artery without angina pectoris Status: Acute Assessment and Plan: As above. (4) Acute kidney injury superimposed on CKD: Code(s): N17.9 - Acute kidney failure, unspecified; N18.9 - Chronic kidney disease, unspecified Status: Acute Assessment and Plan: Nephrology consulted (5) Atrial fibrillation: Qualifiers: Atrial fibrillation type: paroxysmal Qualified Code(s): I48.0 - Paroxysmal atrial fibrillation Code(s): I48.91 - Unspecified atrial fibrillation Status: Acute Assessment and Plan: Continue Metoprolol. Anticoagulation currently on hold due to supratherapeutic INR. Gaol INR is 2-3, will need to resume Warfarin when INR is no longer above goal. (6) Colitis: Code(s): K52.9 - Noninfective gastroenteritis and colitis, unspecified Status: Acute Assessment and Plan: As per primary team. Still having abdominal pain. (7) Hypotension: Qualifiers: Hypotension type: hypotension due to hypovolemia Qualified Code(s): E86.1 - Hypovolemia Code(s): I95.9 - Hypotension, unspecified Status: Acute Assessment and Plan: Stable, has not had further issues with hypotension Subjective Date/time seen: 11/01/23 10:31 Interval history: Reason for visit: Atrial fibrillation, elevated troponin HPI: We are consulted by Dr. Rosado for ECG changes. This is a 78 year old male with CAD s/p multiple stents, chronic heart failure with reduced ejection fraction with LVEF 20-25%, atrial fibrillation on Warfarin, chronic kidney disease stage 4, diabetes who presented on 10/29 for left neck pain, nausea, decreased appetite, generalized abdominal discomfort, diarrhea. ER workup showed colitis on CT. He was admitted for further workup and treatment. Patient denies any chest pain. Patient noted to be hypotensive on arrival, thought to be from hypovolemia. His Warfarin has been placed on hold for supratherapeutic INR. This morning, patient reported nausea, diffuse abdominal pain, including epigastric pain. NO chest pain. EKG was obtained that showed ectopic atrial tac
[2023-11-01 11:58] LABS: Glucose Point of Care 163 mg/dl (65-105)
--- NOTE | 2023-11-01 12:55 | PM.PNNEP ---
Progress Note: A&P Assessment and Plan (1) Chronic kidney disease, stage 4 (severe): Code(s): N18.4 - Chronic kidney disease, stage 4 (severe) Status: Chronic Assessment and Plan: creatinine had been running ~ 2ish [place] in 2021 due to HTN, DM, CHF/cardiomyopathy, vascular disease, EILEEN/pulmonary hypertension, and age-related change however, with recent last hospitalizations over the last several months, his creatinine has been running higher (in the 3ish range) due to diuresis and need for higher dose of diuretics to maintain his volume status suspect some CKD progression versus the fact that he needs a higher creatinine to achieve relative euvolemia his lower creatinine (high 2ish range) on August 2023 admission may have been dilutional since he was volume overloaded at that time creatinine was 2.9mg/dl on last hospital discharge -- however, he was discharged on a higher dose of diuretics... creatinine 3.5mg/dl on admission diuretics on hold at this time follow trend of labs and UOP (2) Colitis: Code(s): K52.9 - Noninfective gastroenteritis and colitis, unspecified Status: Acute Assessment and Plan: presented with diarrhea CT scan showing descending colitis C Diff negative; other stool studies pending on antibiotics (3) Elevated troponin: Code(s): R77.8 - Other specified abnormalities of plasma proteins Status: Acute Assessment and Plan: no symptoms of chest pain Cardiology recommendations noted continue medical management for now (4) Atrial fibrillation: Qualifiers: Atrial fibrillation type: paroxysmal Qualified Code(s): I48.0 - Paroxysmal atrial fibrillation Code(s): I48.91 - Unspecified atrial fibrillation Status: Acute Assessment and Plan: rate control strategy on anticoagulation with warfarin already continue current therapy (5) Hypertension: Qualifiers: Hypertension type: primary hypertension Qualified Code(s): I10 - Essential (primary) hypertension Code(s): I10 - Essential (primary) hypertension Status: Chronic Assessment and Plan: despite history, BP running on the low/soft side BP medications on hold started on midodrine follow trend of hemodynamics (6) Type 2 diabetes mellitus: Qualifiers: Diabetes mellitus jail insulin use: with keno terminal operator use Diabetes mellitus complication status: with circulatory complication Diabetes mellitus complication detail: with other circulatory complications Qualified Code(s): E11.59 - Type 2 diabetes mellitus with other circulatory complications; Z79.4 - watermaster (current) use of insulin Code(s): E11.9 - Type 2 diabetes mellitus without complications Status: Chronic Assessment and Plan: follow accu-cheks glycemic control per hospitalists Will continue to follow. Subjective Date/time seen: 11/01/23 12:55 Interval history: Follow-up for chronic kidney disease (JOSE F on CKD versus progression of chronic kidney disease?) Resumed on IV diuretics with reasonable response; still with worsening abdominal pain and distention with recent imaging suggestive of ileus; breathing/respiratory status seems stable; renal function about the same. Exam Narrative: General: elderly male in NAD Heart:IRRR, normal S1 and S2; no rub Lungs: coarse breath sounds and decreased at bases Abdomen: soft, +TTP with distension, positive bowel sounds Extremities: no cyanosis or clubbing; trace edema Skin: warm and intact Objective Data Vital Signs Vital Signs: Vital Signs Temp Pulse Resp BP Pulse Ox O2 Del Method 11/01/23 12:00 97.9 F 121 H 20 84/45 L 91 11/01/23 10:00 96 11/01/23 08:00 102 H 11/01/23 09:10 92 11/01/23 07:30 98.4 F 92 16 108/57 L 92 11/01/23 05:53 72 11/01/23 04:00 80 11/01/23 04:00 97.5 F L 93 20 106/67 9
--- NOTE | 2023-11-01 12:55 | P.PNNP_ITS ---
Progress Note: A&P Assessment and Plan (1) Chronic kidney disease, stage 4 (severe): Code(s): N18.4 - Chronic kidney disease, stage 4 (severe) Status: Chronic Assessment and Plan: * creatinine had been running ~ 2ish [place] in 2021 * due to HTN, DM, CHF/cardiomyopathy, vascular disease, EILEEN/pulmonary hypertension, and age-related change * however, with recent last hospitalizations over the last several months, his creatinine has been running higher (in the 3ish range) due to diuresis and need for higher dose of diuretics to maintain his volume status * suspect some CKD progression versus the fact that he needs a higher creatinine to achieve relative euvolemia * his lower creatinine (high 2ish range) on August 2023 admission may have been dilutional since he was volume overloaded at that time * creatinine was 2.9mg/dl on last hospital discharge -- however, he was discharged on a higher dose of diuretics... * creatinine 3.5mg/dl on admission * diuretics on hold at this time * follow trend of labs and UOP (2) Colitis: Code(s): K52.9 - Noninfective gastroenteritis and colitis, unspecified Status: Acute Assessment and Plan: * presented with diarrhea * CT scan showing descending colitis * C Diff negative; other stool studies pending * on antibiotics (3) Elevated troponin: Code(s): R77.8 - Other specified abnormalities of plasma proteins Status: Acute Assessment and Plan: * no symptoms of chest pain * Cardiology recommendations noted * continue medical management for now (4) Atrial fibrillation: Qualifiers: Atrial fibrillation type: paroxysmal Qualified Code(s): I48.0 - Paroxysmal atrial fibrillation Code(s): I48.91 - Unspecified atrial fibrillation Status: Acute Assessment and Plan: * rate control strategy * on anticoagulation with warfarin already * continue current therapy (5) Hypertension: Qualifiers: Hypertension type: primary hypertension Qualified Code(s): I10 - Es sential (primary) hypertension Code(s): I10 - Essential (primary) hypertension Status: Chronic Assessment and Plan: * despite history, BP running on the low/soft side * BP medications on hold * started on midodrine * follow trend of hemodynamics (6) Type 2 diabetes mellitus: Qualifiers: Diabetes mellitus longterm insulin use: with longterm use Diabetes mellitus complication status: with circulatory complication Diabetes mellitus complication detail: with other circulatory complications Qualified Code(s): E11.59 - Type 2 diabetes mellitus with other circulatory complications; Z79.4 - oysterman (current) use of insulin Code(s): E11.9 - Type 2 diabetes mellitus without complications Status: Chronic Assessment and Plan: * follow accu-cheks * glycemic control per hospitalists Will continue to follow. Subjective Date/time seen: 11/01/23 12:55 Interval history: Follow-up for chronic kidney disease (JOSE F on CKD versus progression of chronic kidney disease?) Resumed on IV diuretics with reasonable response; still with worsening abdominal pain and distention with recent imaging suggestive of ileus; breathing/res piratory status seems stable; renal function about the same. Exam Narrative: General: elderly male in NAD Heart:IRRR, normal S1 and S2; no rub Lungs: coarse breath sounds and decreased at bases Abdomen: soft, +TTP with distension, positive bowel
--- NOTE | 2023-11-01 13:23 | PCOTNOTE ---
RN reports pt has had a rough day and has been feeling sick. RN asks to allow pt to sleep if he is sleeping. Pt was sound asleep upon entry to room. Will continue to follow for OT evaluation.
--- NOTE | 2023-11-01 14:29 | PM.CNGS ---
Assessment and Plan Assessment and plan (1) Ileus, unspecified: Code(s): K56.7 - Ileus, unspecified Status: Acute Assessment and Plan: On plain films, the colon is now massively dilated. This was not the case on his admitting CT scan. He also reports severe nausea and an urge to vomit whenever he eats. Will make him NPO and place nasogastric tube to suction. There have been no bowel movements but if he starts having diarrhea, can place fecal containment device. Since this is primarily colonic ileus or Celeste syndrome, will consult Gastroenterology for evaluation and recommendation. Sometimes colonoscopy can be helpful in decompressing the colon. Surgery is rarely needed for colonic ileus or ileus in general. If signs of perforation or bowel infarction should of course developed, surgery would be necessary. Plan to turn over management of the ileus to gastroenterology although I will get the nasogastric tube started now. (2) Osteoarthritis of right hip: Code(s): M16.11 - Unilateral primary osteoarthritis, right hip Status: Acute Assessment and Plan: Severe right hip pain whenever it is moved even a small amount. Plain films show osteoarthritis. Will consult Orthopedic surgery. Possibly a joint injection may provide relief. (3) Acute kidney injury superimposed on CKD: Code(s): N17.9 - Acute kidney failure, unspecified; N18.9 - Chronic kidney disease, unspecified Status: Acute (4) Atrial fibrillation: Qualifiers: Atrial fibrillation type: paroxysmal Qualified Code(s): I48.0 - Paroxysmal atrial fibrillation Code(s): I48.91 - Unspecified atrial fibrillation Status: Acute Assessment and Plan: On amiodarone and beta blockers. 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 Since patient has not had bowel movement for 3 days, I question this diagnosis. Will change to IV Zosyn antibiotics and stop the oral antibiotics. (8) Coronary artery disease: Code(s): I25.10 - Atherosclerotic heart disease of [place] coronary artery without angina pectoris Status: Chronic Assessment and Plan: Multiple coronary stents, on aspirin and Plavix, takes warfarin which is on hold for AFib. History of Present Illness Consult details Consult date: 11/01/23 Reason for consult: other (Ileus) Requesting physician: Carla Shen DO Narrative: Patient is a 78-year-old man who was admitted to the hospital 4 days ago with nausea and musculoskeletal complaints. He has multiple cardiac ailments and has a history of 10 coronary stents being placed. He has atrial fibrillation and his Coumadin is on hold. He has congestive heart failure and pulmonary hypertension. He had a CT scan on admission which suggested left-sided colitis and mild pulmonary edema. He has had some alternating constipation and diarrhea but currently has not had a bowel movement for at least 3 days. Looking at his intake and output, he has been eating large amounts but reports now that his abdomen feels distended and he feels as though he is going to vomit with any kind of oral intake. Plain films were done and show a very dilated colon, diagnosed as ileus. He is seen now in consultation. Patient also reports that ever since
[2023-11-01] MEDS: METOPROLOL TARTRATE INJ 5 MG/5 ML VIAL IV PUSH ×2 (15:52→21:05)
[2023-11-01] MEDS: PIPERACILLN/TAZ 3.375GM/NS50ML 3.375 GM/50 ML BAG IVPB ×2 (15:52→21:04)
[2023-11-01] MEDS: ASPIRIN 300 MG SUPPOSITORY RECTAL (15:52)
[2023-11-01 15:54] LABS: Glucose Point of Care 163 mg/dl (65-105)
--- NOTE | 2023-11-01 16:17 | PM.IMPN ---
Progress Note: A&P Assessment and Plan (1) Atrial fibrillation: Qualifiers: Atrial fibrillation type: paroxysmal Qualified Code(s): I48.0 - Paroxysmal atrial fibrillation Code(s): I48.91 - Unspecified atrial fibrillation Status: Acute Assessment and Plan: Patient with AFib with presumably rate related BBB on tele. 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 Possibly inferior AMI so discussed with Cardiology who felt more likely rate related BBB. Previous EKGs reviewed. Consider runs of NSVT. He is off his Imdur due to soft BP. Flattened troponins. 11/01: restart coumadin when taking po, INR stable (2) Epigastric pain: Code(s): R10.13 - Epigastric pain Status: Acute Assessment and Plan: Palpable pain. Probably gastritis or related to his colitis. Add mylanta. Change Protonix to IV. Monitor HH closely. 11/01: ileus, appreciate surgery consult. ng placed (3) Colitis: Code(s): K52.9 - Noninfective gastroenteritis and colitis, unspecified Status: Acute Assessment and Plan: patient presents with diarrhea. CT scan showing descending colitis. CDiff negative. Other stool studies pending. Continue with ceftriaxone and Flagyl 11/01: abx switched to zosyn (4) Acute kidney injury superimposed on CKD: Code(s): N17.9 - Acute kidney failure, unspecified; N18.9 - Chronic kidney disease, unspecified Status: Acute Assessment and Plan: Cr 2.4-2.9 in August. Cr 3.5 on admission. Probably related to dehydration from Bumex and recent GI symptoms. Ultrasound showing normal right kidney but left not visualized. Bumex on hold IV fluid was stopped. Fluid bolus today Avoid nephrotoxins Follow UOP, electrolytes and renal function (5) CHF (congestive heart failure): Qualifiers: Heart failure chronicity: unspecified Heart failure type: unspecified Qualified Code(s): I50.9 - Heart failure, unspecified Code(s): I50.9 - Heart failure, unspecified Status: Acute Assessment and Plan: Echo showing EF 20-25% with diastolic dysfunction grade I. Bumex on hold as mentioned above Low-dose midodrine added for blood pressure Continue with Plavix metoprolol, losartan, Hydralazine and Imdur on hold. 10/31: looks more fluid overloaded, initiate IV lasix 11/01: likely euvolemic, hold lasix (6) Coronary artery disease: Code(s): I25.10 - Atherosclerotic heart disease of [place] coronary artery without angina pectoris Status: Chronic Assessment and Plan: Hx of coronary stenting x10 in [facility]. No ischemic evaluation performed here. Continue Plavix. Add ASA. 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 Continue AccuCheks covering with sliding scale. Hypoglycemia protocol available as needed. Continue to monitor. (8) Osteoarthritis of right hip: Code(s): M16.11 - Unilateral primary osteoarthritis, right hip Status: Acute Assessment and Plan: Right hip x-ray negative for any acute etiology/pathology CT showing moderate right hip OA Continue with Lidoderm patch but stop narcotics since affecting his BP and may be contributing to this nausea (9) Hypothyroidism: Qualifiers: Hypothyroidism type: unspecified Qualified Code(s): E03.9 - Hypothyroidism, unspecified Code(s): E03.9 - Hypothyroidism, unspecif
--- NOTE | 2023-11-01 16:59 | WPDGICN ---
Assessment and Plan Assessment and plan (1) Colitis: Code(s): K52.9 - Noninfective gastroenteritis and colitis, unspecified Status: Acute Assessment and Plan: he had 3 days of diarrhea recently but taking Zofran when he got here has stopped his bowel movements completely CT scan shows some edema only in the descending colon. lactic acid has been checked twice and was normal. I doubt that he has ischemic bowel On admission he had been started on 1st Cipro and was switched to metronidazole and Rocephin. Stool cultures have come back and are all negative. (2) Ileus, unspecified: Code(s): K56.7 - Ileus, unspecified Status: Acute Assessment and Plan: His abdomen has apparently gotten much larger since he got here. Films of the abdomen show ileus involving the small bowel and colon. Surgery suggested NG tube placement. So far there is nothing coming out through his NG tube I told the patient that we may want to perform colonoscopy for decompression. He will not be able to take any oral prep but it sounds like he is probably relatively clear given that he has had diarrhea lately (3) Acute kidney injury superimposed on CKD: Code(s): N17.9 - Acute kidney failure, unspecified; N18.9 - Chronic kidney disease, unspecified Status: Acute Assessment and Plan: be is 86 creatinine 3.6. These are both somewhat higher than previous levels last fall (4) Atrial fibrillation: Qualifiers: Atrial fibrillation type: paroxysmal Qualified Code(s): I48.0 - Paroxysmal atrial fibrillation Code(s): I48.91 - Unspecified atrial fibrillation Status: Acute Assessment and Plan: he has chronic heart disease. He has a low ejection fraction of 20-25%. 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 Even though he has been off it for few days INR still elevated. (6) CHF (congestive heart failure): Qualifiers: Heart failure chronicity: unspecified Heart failure type: unspecified Qualified Code(s): I50.9 - Heart failure, unspecified Code(s): I50.9 - Heart failure, unspecified Status: Acute Assessment and Plan: He states that he was 258 lb last week then 266 a day or 2 later and now is 295 reportedly. Plan If INR comes down on, I will attempt decompression of the colon tomorrow. This will also allow me to rule out ischemic colitis. GI Consult Note Consult date/time: 11/01/23 16:59 HPI: Nigel Wang is a 78 year old male Whose name is a mild consult list. I believe that a consultation was placed for me but they had not yet got around to calling me. At any rate I saw the patient in his room. He is sitting at the bedside with NG tube in place. His complaints are that he has nausea, irregular bowel movements and severe weight gain. He says he was given Zofran in the [facility] which unfortunately caused constipation he then took a suppository and had 3 days of nothing but watery diarrhea when he got here he was given another dose of Zofran in the states that he has not had a bowel movement since then. He has not had blood in his stools. CT scan did show evidence of colitis Review of Systems Review of Systems: All systems reviewed & are unremarkable except as noted in HPI and below [facility] Past Medical History Medical History Aortic stenosis, mild Atrial fibrillation Chronic anticoagulation Chronic kidney disease, stage 4 (severe) Combined systolic and diastolic congestive heart failure He follows with Dr. Wheeler [facility] most reconnect 0 08/22/2023: Mild left ventricular enlargement, EF 20-25%, mild left ventricular wall thickness increased, grade 1 diastolic dysfunction, akinesis and hypokinesis of multiple house, mild aortic valve stenosis
--- NOTE | 2023-11-01 20:09 | PC.NURSE ---
NG flushed with 30 mls of water. Patent. Continues to be on med to high continuous suction. Scant output since NG insertion. Dr. Lyle made aware. No new orders noted.
[2023-11-01 20:11] LABS: Glucose Point of Care 195 mg/dl (65-105)
[2023-11-01] MEDS: INSULIN GLARGINE (*BKC) 100 UNITS/ML SUB-Q (21:05)
[2023-11-02] VITALS (23 sets, daily range): BP systolic 98–122; BP diastolic 51–87; PULSE 60–113; RESP 18–24; TEMP 36.2–36.8; O2SAT 95–100
[2023-11-02] MEDS: PROMETHAZINE HCL 25 MG/ML AMPUL IM (02:15)
[2023-11-02] MEDS: PIPERACILLN/TAZ 3.375GM/NS50ML 3.375 GM/50 ML BAG IVPB ×4 (03:57→20:35)
[2023-11-02 05:19] LABS: Basophils Absolute Auto 0.1 K/mm3 (0.0-0.1); Basophils Percent Auto 0.5 % (0.2-1.2); Eosinophils Absolute Auto 0.5 K/mm3 (0-0.3); Eosinophils Percent Auto 5.9 % (0-4.4); Hematocrit 30.6 % (42.0-52.0); Hemoglobin 9.3 g/dL (14.0-18.0); Immature Granulocyte Absolute 0.07 K/mm3 (0.00-0.031); Immature Granulocyte Percent A 0.8 % (0-0.5); Lymphocytes Absolute Auto 1.18 K/mm3 (0.9-3.2); Lymphocytes Percent Auto 12.8 % (18.3-44.2); Mean Corpuscular HGB Conc 30.4 g/dl (32-36); Mean Corpuscular Hemoglobin 30.6 pg (26-34); Mean Corpuscular Volume 100.7 fl (80-100); Mean Platelet Volume 10.9 fl (7.4-10.4); Monocytes Absolute Auto 0.8 K/mm3 (0.1-0.6); Monocytes Percent Auto 8.1 % (2.6-8.5); Neutrophils Absolute Auto 6.6 K/mm3 (1.3-6.7); Neutrophils Percent Auto 71.9 % (45.5-73.1); Platelet Count Result 240 k/mm3 (150-375); Red Blood Count 3.04 M/mm3 (4.6-6.20); Red Cell Distribution Width 15.9 % (11.5-14.5); White Blood Count 9.2 K/mm3 (4.5-10.0)
[2023-11-02 05:29] LABS: INR 2.1; Prothrombin Time 25.2 Seconds (11.1-14.7)
[2023-11-02 05:33] LABS: Alanine Aminotransferase 13 U/L (6-50); Albumin Level 2.9 g/dL (3.5-5.1); Alkaline Phosphatase 79 U/L (38-126); Anion Gap 10 mmol/L (8-16); Aspartate Amino Transferase 28 U/L (17-59); Bilirubin,Total 0.5 mg/dL (0.2-1.3); Blood Urea Nitrogen 85 mg/dL (9-20); Calcium 8.2 mg/dL (8.4-10.2); Carbon Dioxide 25 mmol/L (22-30); Chloride 102 mmol/L (98-107); Estimated CRCL calculation 23 ml/min; Estimated Glomerular Filt Rate 18; Glucose 126 mg/dL (65-110); Magnesium 2.6 mg/dL (1.6-2.3); Phosphorus 2.9 mg/dL (2.5-4.5); Potassium 3.3 mmol/L (3.4-5.0); Sodium 137 mmol/L (137-145)
[2023-11-02] MEDS: LEVOTHYROXINE SODIUM INJ 100 MCG/5 ML VIAL 50 MCG IV PUSH (06:25)
[2023-11-02 08:11] LABS: Glucose Point of Care 120 mg/dl (65-105)
[2023-11-02] MEDS: LIDOCAINE 5% PATCH 1 PATCH TRANSDERM (08:21)
[2023-11-02] MEDS: FLUTICASONE PROPIONATE 0.05% NA SPR 16 GM BTL (*BKC) 1 SPRAY NASAL (08:21)
[2023-11-02] MEDS: PANTOPRAZOLE SODIUM IV 40 MG VIAL IV PUSH (08:22)
[2023-11-02] MEDS: METOPROLOL TARTRATE INJ 5 MG/5 ML VIAL IV PUSH ×3 (08:22→20:36)
[2023-11-02] MEDS: KCL 20MEQ/0.9% SOD CHL 1,000 ML 80 ML IV CONT (09:41)
--- NOTE | 2023-11-02 09:43 | PM.CNOR ---
Assessment and Plan Assessment and plan (1) Osteoarthritis of right hip: Qualifiers: Osteoarthritis type: primary Qualified Code(s): M16.11 - Unilateral primary osteoarthritis, right hip Code(s): M16.11 - Unilateral primary osteoarthritis, right hip Status: Acute Assessment and Plan: History, exam, radiographs and CT scan reviewed with the patient. Radiographs and CT scan reveal moderate degenerative changes of the right hip. Patient does not have any pain with internal or external rotation of the right hip. No difficulty with extension or flexion. Pain is mainly posterior in nature. Suspect pain is related to lumbar degenerative changes or could also be related to current colitis. Would not recommend proceeding with an intra-articular hip joint injection under fluoroscopy as patient's symptoms do not seem to be related to his hip arthritis at this time. Once patient is medically stable, he may begin physical therapy with weight-bearing as tolerated. Agree with pain patch for the posterior pain. May require further imaging of the lumbar spine if persistent pain and referral to Neurosurgery Or pain management as an outpatient for injection. Thank you for allowing us to assist in the care this patient. No surgical indication at this time. Please contact us for any further orthopedic needs. Plan Reviewed history, exam, radiographs and current labs with attending MD and covering surgeon, Dr. Francois, who agrees with current plan as indicated above. No further recommendations from Dr. Francois at this time. History of Present Illness HPI Consult date: 11/02/23 Chief complaint: Colitis, Hypotension, Right Hip Pain Narrative: 78-year-old male admitted for abdominal pain and is currently being seen by general surgery and GI for colitis with a pending bowel decompression by GI. Patient was also complaining of right posterior hip pain. Patient states this is chronic in nature but has been worse since he was transferred to the [facility] by EMS prior to admission. Radiographs and CT of the right hip reveal moderate to severe degenerative changes. Orthopedic consult requested due to complaints of right hip pain. Review of Systems Review of Systems: All systems reviewed & are unremarkable except as noted in HPI and below [facility] Past Medical History Medical History Aortic stenosis, mild Atrial fibrillation Chronic anticoagulation Chronic kidney disease, stage 4 (severe) Combined systolic and diastolic congestive heart failure He follows with Dr. 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 History of percutaneous coronary intervention Family History Family History Father Cerebrovascular accident Diabetes mellitus Mother Diabetes mellitus Social History Social History Social History: Healthcare power of real estate associate attorney: Bhanu Awanden, son. Code status: DNR/DNI (however patient reports he would be amenable to s
--- NOTE | 2023-11-02 11:20 | PCPTNOTE ---
attempted PT eval, pt refused at this time, will continue to attempt
--- NOTE | 2023-11-02 11:59 | PM.PNGS ---
Progress Note: A&P Assessment and Plan (1) Ileus, unspecified: Code(s): K56.7 - Ileus, unspecified Status: Acute Assessment and Plan: Nasogastric tube placed yesterday and is in good position. Plain films this morning still show ileus. Abdomen remains distended although nontender. Bowel sounds are absent. Appreciate gastroenterology consultation and plans for colonoscopy for colonic decompression later today. (2) Osteoarthritis of right hip: Code(s): M16.11 - Unilateral primary osteoarthritis, right hip Status: Acute Assessment and Plan: Still very painful. Plain films only show osteoarthritis. Orthopedic surgery consulted (3) Colitis: Code(s): K52.9 - Noninfective gastroenteritis and colitis, unspecified Status: Acute Assessment and Plan: Noted on initial CT scan from the emergency room. Patient on Zosyn antibiotics. (4) Acute kidney injury superimposed on CKD: Code(s): N17.9 - Acute kidney failure, unspecified; N18.9 - Chronic kidney disease, unspecified Status: Acute Assessment and Plan: Stage 4 kidney disease. Creatinine 3.3 (5) CHF (congestive heart failure): Qualifiers: Heart failure chronicity: chronic Heart failure type: combined systolic and diastolic Qualified Code(s): I50.42 - Chronic combined systolic (congestive) and diastolic (congestive) heart failure Code(s): I50.9 - Heart failure, unspecified Status: Chronic (6) Atrial fibrillation: Qualifiers: Atrial fibrillation type: paroxysmal Qualified Code(s): I48.0 - Paroxysmal atrial fibrillation Code(s): I48.91 - Unspecified atrial fibrillation Status: Acute Assessment and Plan: Rate controlled. Anticoagulation has been held. Subjective Subjective Date/Time Seen: 11/02/23 11:59 Patient reports: no new complaints, still having pain (Right hip pain), no bowel movement and afebrile Interval history: Nasogastric tube placed yesterday but very little output. Gastroenterology saw patient in consultation. He is scheduled for colonoscopy this afternoon. Review of Systems Review of Systems: All systems reviewed & are unremarkable except as noted in HPI and below (HPI) Exam Const: General: comfortable (Patient sitting at bedside, looks comfortable, NG tube in place), alert, awake and obese Nutritional Appearance: obese Orientation/consciousness: No confusion GI: Inspection: distended, Pannus present and obesity GI Palp: Yes Firmness to palpation present (GI), No Tenderness to palpation present (GI), No Guarding due to palpation present (GI), No Hernia present and No Palpable mass present Auscultation: absent bowel sounds Objective Data Vital Signs Vital Signs: Vital Signs - 24 hr 11/01/23 12:00 11/01/23 15:52 11/01/23 15:54 Temperature 36.6 C 37.2 C Pulse Rate 121 H 95 90 Respiratory Rate 20 16 Blood Pressure 84/45 L 104/58 L Pulse Oximetry 91 90 Oxygen Delivery 11/01/23 12:00 11/01/23 14:00 11/01/23 16:00 Temperature Pulse Rate 91 93 78 Respiratory Rate Blood Pressure Pulse Oximetry Oxygen Delivery 11/01/23 12:00 11/01/23 16:00 11/01/23 18:00 Temperature Pulse Rate 70 Respiratory Rate Blood Pressure Pulse Oximetry Oxygen Delivery Room Air Room Air 11/01/23 19:46 11/01/23 21:05 11/01/23 20:00 Temperature 36.3 C L Pulse Rate 79 90 Respiratory Rate 20 Blood Pressure 117/67 Pulse Oximetry 96 Oxygen Delivery Room Air 11/01/23 20:00 11/01/23 22:00 11/01/23 23:59 Temperature 36.5 C Pulse Rate 80 78 75 Respiratory Rate 20 Blood Pressure 110/68 Pulse Oximetry 94 Oxygen Delivery 11/02/23 00:00 11/02/23 00:00 11/02/23 02:00 Temperature Pulse Rate 69 82 Respiratory Rate Blood Pressure Pulse Oximetry Oxygen Delivery Room Air 11/02/23 03:57 11/02/23 04:00 11/02/23 04:00 Temperature 36.3 C L Pulse
--- NOTE | 2023-11-02 12:12 | P.PNNP_ITS ---
Progress Note: A&P Assessment and Plan (1) Chronic kidney disease, stage 4 (severe): Code(s): N18.4 - Chronic kidney disease, stage 4 (severe) Status: Chronic Assessment and Plan: * creatinine had been running ~ 2ish [place] in 2021 * due to HTN, DM, CHF/cardiomyopathy, vascular disease, EILEEN/pulmonary hypertension, and age-related change * however, with recent last hospitalizations over the last several months, his creatinine has been running higher (in the 3ish range) due to diuresis and need for higher dose of diuretics to maintain his volume status * suspect some CKD progression versus the fact that he needs a higher creatinine to achieve relative euvolemia * his lower creatinine (high 2ish range) on August 2023 admission may have been dilutional since he was volume overloaded at that time * creatinine was 2.9mg/dl on last hospital discharge. * creatinine 3.5mg/dl on admission, then climbed 3.6 and now down to 3.3. * He is getting IV fluids. He is not on diuretics. * Last chest x-ray did show some volume overload. * He did make 1500cc of urine yesterday and has made 600cc of urine so far today. In addition he had another 500cc of gastric drainage. Hopefully he will not need diuretics. * Will check another x-ray. (2) Colitis: Code(s): K52.9 - Noninfective gastroenteritis and colitis, unspecified Status: Acute Assessment and Plan: * presented with diarrhea * CT scan showing descending colitis * C Diff negative; other stool studies pending * on antibiotics * Colonoscopy today (3) Elevated troponin: Code(s): R77.8 - Other specified abnormalities of plasma proteins Status: Acute Assessment and Plan: * no symptoms of chest pain * Cardiology recommendations noted * continue medical management for now (4) Atrial fibrillation: Qualifiers: Atrial fibrillation type: paroxysmal Qualified Code(s): I48.0 - Paroxysmal atrial fibrillation Code(s): I48.91 - Unspecified atrial fibrillation Status: Acute Assessment and Plan: on anticoagulation with warfarin already * continue current therapy * heart rate is good at 60 (5) Hypertension: Qualifiers: Hypertension type: primary hypertension Qualified Code(s): I10 - Essential (primary) hypertension Code(s): I10 - Essential (primary) hypertension Status: Chronic Assessment and Plan: * despite history, BP running on the low/soft side * BP medications on hold * started on midodrine * continue to hold blood pressure meds. Systolic is still only 1O2 (6) Type 2 diabetes mellitus: Qualifiers: Diabetes mellitus complication detail: with other circulatory complications Diabetes mellitus complication status: with circulatory complication Diabetes mellitus retirement insulin use: with termite technician use Qualified Code(s): E11.59 - Type 2 diabetes mellitus with other circulatory complications; Z79.4 - long-term (current) use of insulin Code(s): E11.9 - Type 2 diabetes mellitus without complications Status: Chronic Assessment and Plan: * follow accu-cheks * glycemic control per hospitalists Will continue to follow. Subjective Date/time seen: 11/02/23 12:12 Interval history: patient is alert and feeling okay. No chest pain or shortness of breath still has a large belly NG tube still in place with intermittent suction. He passed a little bit of gas. He is going to get a colonoscopy this afternoon
--- NOTE | 2023-11-02 12:12 | PM.PNNEP ---
Progress Note: A&P Assessment and Plan (1) Chronic kidney disease, stage 4 (severe): Code(s): N18.4 - Chronic kidney disease, stage 4 (severe) Status: Chronic Assessment and Plan: creatinine had been running ~ 2ish [place] in 2021 due to HTN, DM, CHF/cardiomyopathy, vascular disease, EILEEN/pulmonary hypertension, and age-related change however, with recent last hospitalizations over the last several months, his creatinine has been running higher (in the 3ish range) due to diuresis and need for higher dose of diuretics to maintain his volume status suspect some CKD progression versus the fact that he needs a higher creatinine to achieve relative euvolemia his lower creatinine (high 2ish range) on August 2023 admission may have been dilutional since he was volume overloaded at that time creatinine was 2.9mg/dl on last hospital discharge. creatinine 3.5mg/dl on admission, then climbed 3.6 and now down to 3.3. He is getting IV fluids. He is not on diuretics. Last chest x-ray did show some volume overload. He did make 1500cc of urine yesterday and has made 600cc of urine so far today. In addition he had another 500cc of gastric drainage. Hopefully he will not need diuretics. Will check another x-ray. (2) Colitis: Code(s): K52.9 - Noninfective gastroenteritis and colitis, unspecified Status: Acute Assessment and Plan: presented with diarrhea CT scan showing descending colitis C Diff negative; other stool studies pending on antibiotics Colonoscopy today (3) Elevated troponin: Code(s): R77.8 - Other specified abnormalities of plasma proteins Status: Acute Assessment and Plan: no symptoms of chest pain Cardiology recommendations noted continue medical management for now (4) Atrial fibrillation: Qualifiers: Atrial fibrillation type: paroxysmal Qualified Code(s): I48.0 - Paroxysmal atrial fibrillation Code(s): I48.91 - Unspecified atrial fibrillation Status: Acute Assessment and Plan: on anticoagulation with warfarin already continue current therapy heart rate is good at 60 (5) Hypertension: Qualifiers: Hypertension type: primary hypertension Qualified Code(s): I10 - Essential (primary) hypertension Code(s): I10 - Essential (primary) hypertension Status: Chronic Assessment and Plan: despite history, BP running on the low/soft side BP medications on hold started on midodrine continue to hold blood pressure meds. 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 Subjective Date/time seen: 11/02/23 12:12 Interval history: patient is alert and feeling okay. No chest pain or shortness of breath still has a large belly NG tube still in place with intermittent suction. He passed a little bit of gas. He is going to get a colonoscopy this afternoon Exam Narrative: General: elderly male in NAD Heart:IRRR, normal S1 and S2; no rub Lungs: coarse breath sounds and decreased at bases Abdomen: soft, +TTP with distension, positive bowel sounds Extremities: no cyanosis or clubbing; trace edema Skin: warm and intact Objective Data Vital Signs Vital Signs: Vital Signs - 24 hr 11/01/23 15:52 11/01/23 15:54 11/01/23 14:00 Temperature 98.9 F Pulse Rate 95 90 93 Resp
[2023-11-02 12:17] LABS: Glucose Point of Care 126 mg/dl (65-105)
--- NOTE | 2023-11-02 13:30 | PC.NURSE ---
To GI Lab. Report given to [Mirtha ].
--- NOTE | 2023-11-02 14:02 | PM.IMPN ---
Progress Note: A&P Assessment and Plan (1) Atrial fibrillation: Qualifiers: Atrial fibrillation type: paroxysmal Qualified Code(s): I48.0 - Paroxysmal atrial fibrillation Code(s): I48.91 - Unspecified atrial fibrillation Status: Acute Assessment and Plan: Patient with AFib with presumably rate related BBB on tele. 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 Possibly inferior AMI so discussed with Cardiology who felt more likely rate related BBB. Previous EKGs reviewed. Consider runs of NSVT. He is off his Imdur due to soft BP. Flattened troponins. 11/01: restart coumadin when taking po, INR stable (2) Epigastric pain: Code(s): R10.13 - Epigastric pain Status: Acute Assessment and Plan: Palpable pain. Probably gastritis or related to his colitis. Add mylanta. Change Protonix to IV. Monitor HH closely. 11/01: ileus, appreciate surgery consult. ng placed (3) Colitis: Code(s): K52.9 - Noninfective gastroenteritis and colitis, unspecified Status: Acute Assessment and Plan: patient presents with diarrhea. CT scan showing descending colitis. CDiff negative. Other stool studies pending. Continue with ceftriaxone and Flagyl 11/01: abx switched to zosyn (4) Acute kidney injury superimposed on CKD: Code(s): N17.9 - Acute kidney failure, unspecified; N18.9 - Chronic kidney disease, unspecified Status: Acute Assessment and Plan: Cr 2.4-2.9 in August. Cr 3.5 on admission. Probably related to dehydration from Bumex and recent GI symptoms. Ultrasound showing normal right kidney but left not visualized. Bumex on hold Avoid nephrotoxins Follow UOP, electrolytes and renal function 11/02: Getting gentle IV fluids, appreciate nephrology consult, stable (5) CHF (congestive heart failure): Qualifiers: Heart failure chronicity: unspecified Heart failure type: unspecified Qualified Code(s): I50.9 - Heart failure, unspecified Code(s): I50.9 - Heart failure, unspecified Status: Acute Assessment and Plan: Echo showing EF 20-25% with diastolic dysfunction grade I. Bumex on hold as mentioned above Low-dose midodrine added for blood pressure Continue with Plavix metoprolol, losartan, Hydralazine and Imdur on hold. 10/31: looks more fluid overloaded, initiate IV lasix 11/01: likely euvolemic, hold lasix (6) Coronary artery disease: Code(s): I25.10 - Atherosclerotic heart disease of [place] coronary artery without angina pectoris Status: Chronic Assessment and Plan: Hx of coronary stenting x10 in [facility]. No ischemic evaluation performed here. Continue Plavix. Add ASA. (7) Type 2 diabetes mellitus: Qualifiers: Diabetes mellitus long-term insulin use: with terminal system operator use Diabetes mellitus complication status: with circulatory complication Diabetes mellitus complication detail: with other circulatory complications Qualified Code(s): E11.59 - Type 2 diabetes mellitus with other circulatory complications; Z79.4 - [facility] (current) use of insulin Code(s): E11.9 - Type 2 diabetes mellitus without complications Status: Chronic Assessment and Plan: The patient's blood glucose was reviewed on 11/02 Glucose remains well controlled. Continue AccuCheks covering with sliding scale. Hypoglycemia protocol available as needed. Continue to monitor. (8) Osteoarthritis of right hip: Code(s): M16.11 - Unilateral primary osteoarthritis, right hip Status: Acute Assessment and Plan: Right hip x-ray negative for any acute etiology/pathology CT showing moderate right hip OA Continue with Lidoderm patch but stop narcotics since affecting his BP and may be contributing to this nausea 11/02: Orthopedic surgery consult pending (9) Hypothyroidism: Qualifiers: Hypothyroidism type: unspecified Qualified Code(s): E03.9 - H
[2023-11-02] MEDS: LACTATED RINGERS 1,000 ML 150 ML IV CONT (14:04)
--- NOTE | 2023-11-02 14:11 | SUR.PREOP ---
Addendum entered by Julita Garcia RN 11/02/23 14:23: 11/02/[address] Dickey aware of patients visual hallucinations and taking clopidogrel dose yesterday Original Note: 1330 Reports weakness, visual hallucination of people and dogs. Reports legs feeling like jelly. Unable to move self from bed to stretcher, moved with assitance of 3
--- NOTE | 2023-11-02 14:14 | WPDANESEPPF ---
Anes - Initial Pre Proc Eval Procedure: Operation Date: 11/02/23 14:30 Proposed Procedures p Colonoscopy - Kaleb Dickey MD Date/Time: 11/02/23 14:14 Surgeon: Kendra Braun DO Pre Op Diagnosis: Colitis, Hypotension, Right Hip Pain Patient Data Age: 78 Gender: M Height: 1.83 m Weight: 125.2 kg Last Vital Signs Temp 97.1 F L 11/02/23 14:07 Pulse 73 11/02/23 14:07 Resp 24 H 11/02/23 14:07 BP 122/77 11/02/23 14:07 Pulse Ox 98 11/02/23 14:07 O2 Del Method Room Air 11/02/23 14:07 O2 Flow Rate 2 10/30/23 09:00 Allergies Allergy/AdvReac Type Severity Reaction Status Date / Time sitagliptin Allergy Unknown Verified 11/02/23 13:57 exenatide [From By[place]] AdvReac Gastrointestinal Verified 11/02/23 13:57 Upset Bmaenzb-LAG-JlL Reductase AdvReac Cramping Verified 11/02/23 13:57 Inhibitor of the [Tfpqmcn-Bdv-Wab Reductase Muscles Inhibitor] Home Medications Medication Instructions Recorded Confirmed Type clopidogrel 75 mg tablet 75 mg PO DAILY 04/12/21 11/02/23 History insulin detemir U-100 100 unit/mL 15 unit subcut HS 04/12/21 10/29/23 History subcutaneous solution (Levemir U-100 Insulin) isosorbide mononitrate 120 mg 120 mg PO DAILY 04/12/21 10/29/23 History tablet,extended release 24 hr acetaminophen 325 mg tablet 650 mg PO BID PRN Pain (Scale 01/27/22 10/29/23 History Score 1-3) alirocumab 150 mg/mL subcutaneous 150 mg subcut [id number] 01/27/22 10/29/23 History pen injector (Praluent Pen) amiodarone 200 mg tablet 200 mg PO DAILY 01/27/22 10/29/23 History hydralazine 100 mg tablet 50 mg PO TID 01/27/22 10/29/23 History levothyroxine 112 mcg tablet 100 mcg PO DAILY 01/27/22 10/29/23 History (Euthyrox) losartan 50 mg tablet 25 mg PO DAILY 01/27/22 10/29/23 History magnesium oxide 400 mg (241.3 mg 400 mg PO BID 01/27/22 10/29/23 History magnesium) tablet metoprolol succinate 25 mg 25 mg PO DAILY 01/27/22 10/29/23 History tablet,extended release 24 hr pantoprazole 40 mg tablet,delayed 40 mg PO DAILY 01/27/22 10/29/23 History release warfarin 5 mg tablet 5 mg PO QHS 01/27/22 10/29/23 History allopurinol 300 mg tablet 300 mg PO DAILY 12/29/22 10/29/23 History glipizide 10 mg tablet 10 mg PO BID 12/29/22 10/29/23 History albuterol sulfate 2.5 mg/3 mL 2.5 mg (3 mL) inhalation Q4HRT PRN 01/03/23 10/29/23 Rx (0.083 %) solution for nebulization Shortness Of Breath #75 mL ferrous sulfate 325 mg (65 mg 325 mg PO DAILY 02/17/23 10/29/23 History iron) tablet nitroglycerin 0.4 mg sublingual 0.4 mg sublingual Q5M PRN Chest 02/17/23 10/29/23 History tablet Pain doxazosin 2 mg tablet 2 mg PO QHS 09/11/23 10/29/23 History fluticasone propionate 50 1 spray intranasal DAILY 09/11/23 10/29/23 History mcg/actuation nasal spray,suspension hydrocodone 5 mg-acetaminophen 325 1 tablet PO Q6H PRN Pain (Scale 09/11/23 10/29/23 History mg tablet Score 4-6) pilocarpine HCl 5 mg tablet 5 mg PO TID 09/11/23 10/29/23 History Lactobacillus 1 cap PO BID 09/17/23 10/29/23 History acidophilus-Bifidobac.animalis 2.5 billion cell capsule (Daily Probiotic) ascorbic acid (vitamin C) 1,000 mg 1 g PO DAILY 09/17/23 10/29/23 History tablet ergocalciferol (vitamin D2) 1,250 50,000 unit PO WEEKLY 09/17/23 10/29/23 History mcg (50,000 unit) capsule insulin aspart U-100 100 unit/mL 1 sliding scale dose subcut TID 09/17/23 10/29/23 History (3 mL) subcutaneous pen (Novolog PRN Hyperglycemia FlexPen U-100 Insulin aspart) potassium chloride 20 mEq 20 meq PO DAILY 09/17/23 10/29/23 History tablet,extended release(part/cryst) bumetanide 1 mg tablet 2.5 mg PO BID #90 tabs 09/19/23 10/29/23 Rx calcium 500 mg tablet 500 mg PO BID 10/29/23 10/29/23 History ondansetron 8 mg disintegrating 4 mg PO TID PRN Nausea And Vomiting 10/29/23 10/29/23 History tablet saliva substitute combo no.9 15 ml mucous membrane QID PRN Dry 10/29/23 10/29/23 His
--- NOTE | 2023-11-02 14:15 | PCPTNOTE ---
attempted eval again, RN stated that pt was not going to work with therapy at this time as he was just moved around a lot, pt leaving room for other treatment, will continue to follow
--- NOTE | 2023-11-02 14:24 | PM.PNCARD ---
Progress Note: A&P Assessment and Plan (1) CHF (congestive heart failure): Qualifiers: Heart failure chronicity: unspecified Heart failure type: unspecified Qualified Code(s): I50.9 - Heart failure, unspecified Code(s): I50.9 - Heart failure, unspecified Status: Acute Assessment and Plan: Known HFrEF. Was given some IV furosemide yesterday because of some volume overload but it is been can discontinue now. When his NG tube is out and he can be restarted on oral medications, recommend restarting his home dose of furosemide. Cardiology will sign off at this point. Please call with any questions. (2) Elevated troponin: Code(s): R77.8 - Other specified abnormalities of plasma proteins Status: Acute Assessment and Plan: On 10/30, patient reported nausea, diffuse abdominal pain, including epigastric pain. NO chest pain. EKG was obtained that showed ectopic atrial tachycardia vs SVT with a rate of 120bpm, RBBB, which is different than his admission EKG. We were called to evaluate for STEMI. No STEMI criteria seen on EKG. His heart rates improved, and his repeat EKG shows atrial fibrillation with IVCD, similar to his admission EKG. Patient is without any chest pain. This was likely a rate related bundle branch blod. Troponin trend of 1.830, 1.7, 1.78 so overall flat. His troponins are more elevated compared to last hospitalization, however, his renal function is also worse now compared to prior. Continue ASA, continue Plavix, continue beta matt. Obtain his cardiology records from Dr. Wheeler's office. I do not suspect that he had an acute coronary event, however, cannot completely rule out. He does not have any chest pain which is reassuring. Will continue with medical management for now. If he does need cardiac catheterization, he will be at higher risk for complications given JOSE F on CKD, supratherapeutic INR, multiple significant co-morbidities. (3) Coronary artery disease: Code(s): I25.10 - Atherosclerotic heart disease of [place] coronary artery without angina pectoris Status: Chronic Assessment and Plan: As above. (4) Acute kidney injury superimposed on CKD: Code(s): N17.9 - Acute kidney failure, unspecified; N18.9 - Chronic kidney disease, unspecified Status: Acute Assessment and Plan: Nephrology consulted (5) Atrial fibrillation: Qualifiers: Atrial fibrillation type: paroxysmal Qualified Code(s): I48.0 - Paroxysmal atrial fibrillation Code(s): I48.91 - Unspecified atrial fibrillation Status: Acute Assessment and Plan: Continue Metoprolol. Anticoagulation currently on hold due to supratherapeutic INR. Gaol INR is 2-3, will need to resume Warfarin when INR is no longer above goal. (6) Colitis: Code(s): K52.9 - Noninfective gastroenteritis and colitis, unspecified Status: Acute Assessment and Plan: As per primary team. Still having abdominal pain. (7) Hypotension: Qualifiers: Hypotension type: hypotension due to hypovolemia Qualified Code(s): E86.1 - Hypovolemia Code(s): I95.9 - Hypotension, unspecified Status: Acute Assessment and Plan: Stable, has not had further issues with hypotension Subjective Date/time seen: 11/02/23 14:24 Interval history: Reason for visit: Atrial fibrillation, elevated troponin HPI: We are consulted by Dr. Rosado for ECG changes. This is a 78 year old male with CAD s/p multiple stents, chronic heart failure with reduced ejection fraction with LVEF 20-25%, atrial fibrillation on Warfarin, chronic kidney disease stage 4, diabetes who presented on 10/29 for left neck pain, nausea, decreased appetite, generalized abdominal discomfort, diarrhea. ER workup showed colitis on CT. He was admitted for further workup and treatment. Patient denies any chest pain. Patient noted to be hypotensive on arrival, thought to be from hypovolemia. His Warfar
--- NOTE | 2023-11-02 15:40 | PC.NURSE ---
Returned from GI Lab. Report received from [[id number]
[2023-11-02 17:31] LABS: Glucose Point of Care 145 mg/dl (65-105)
--- NOTE | 2023-11-02 18:55 | PC.NURSE ---
[address] Shen to notify her that patient came back from GI lab only seeing hallucinations when his eyes are closed. Patient is still drowsy from what he recieved in GI lab. Waiting to give the haldol until patient more awake. Patient now states he hasn't had any hallucinations since he came back from GI lab. Waiting to give haldol until confirmed with Dr. Shen that she still wants given.
[2023-11-02] MEDS: DOXAZOSIN MESYLATE 2 MG TABLET PO (20:35)
[2023-11-02] MEDS: INSULIN GLARGINE (*BKC) 100 UNITS/ML SUB-Q (21:00)
[2023-11-02] MEDS: LORazepam INJ (*CRX) 2 MG/ML VIAL 1 MG IV PUSH (21:00)
[2023-11-02] MEDS: MORPHINE SULFATE (*CRX) 2 MG/ML INJ IV PUSH (23:53)
[2023-11-03] VITALS (18 sets, daily range): BP systolic 96–122; BP diastolic 57–78; PULSE 64–98; RESP 12–28; TEMP 36.1–36.7; O2SAT 93–99
[2023-11-03 00:23] LABS: Glucose Point of Care 133 mg/dl (65-105)
[2023-11-03] MEDS: METOPROLOL TARTRATE INJ 5 MG/5 ML VIAL IV PUSH ×4 (03:00→21:56)
[2023-11-03] MEDS: KCL 20MEQ/0.9% SOD CHL 1,000 ML 80 ML IV CONT ×2 (03:11→17:24)
[2023-11-03] MEDS: PIPERACILLN/TAZ 3.375GM/NS50ML 3.375 GM/50 ML BAG IVPB ×4 (03:13→21:58)
[2023-11-03 04:33] LABS: Basophils Absolute Auto 0.1 K/mm3 (0.0-0.1); Basophils Percent Auto 0.7 % (0.2-1.2); Eosinophils Absolute Auto 0.4 K/mm3 (0-0.3); Eosinophils Percent Auto 4.4 % (0-4.4); Hematocrit 32.5 % (42.0-52.0); Hemoglobin 9.6 g/dL (14.0-18.0); Lymphocytes Percent Auto 15.3 % (18.3-44.2); Mean Corpuscular HGB Conc 29.5 g/dl (32-36); Mean Corpuscular Hemoglobin 30.4 pg (26-34); Mean Corpuscular Volume 102.8 fl (80-100); Monocytes Absolute Auto 0.7 K/mm3 (0.1-0.6); Monocytes Percent Auto 7.3 % (2.6-8.5); Neutrophils Percent Auto 71.3 % (45.5-73.1); Platelet Count Result 272 k/mm3 (150-375); Red Blood Count 3.16 M/mm3 (4.6-6.20); Red Cell Distribution Width 16.1 % (11.5-14.5); White Blood Count 9.8 K/mm3 (4.5-10.0)
[2023-11-03 04:43] LABS: INR 2.1; Prothrombin Time 25.6 Seconds (11.1-14.7)
[2023-11-03 04:53] LABS: Alanine Aminotransferase 13 U/L (6-50); Albumin Level 3.2 g/dL (3.5-5.1); Alkaline Phosphatase 79 U/L (38-126); Anion Gap 13 mmol/L (8-16); Aspartate Amino Transferase 28 U/L (17-59); Bilirubin,Total 0.5 mg/dL (0.2-1.3); Blood Urea Nitrogen 71 mg/dL (9-20); Calcium 8.4 mg/dL (8.4-10.2); Carbon Dioxide 22 mmol/L (22-30); Chloride 105 mmol/L (98-107); Estimated CRCL calculation 25 ml/min; Estimated Glomerular Filt Rate 20; Glucose 112 mg/dL (65-110); Magnesium 2.8 mg/dL (1.6-2.3); Potassium 3.7 mmol/L (3.4-5.0); Sodium 140 mmol/L (137-145)
[2023-11-03 05:05] LABS: Ovalocytes 1+ (NORMAL); Platelet Estimate Adequate (Adequate); Polychromasia 1+ (NORMAL); Schistocytes Rare (NORMAL)
[2023-11-03] MEDS: LEVOTHYROXINE SODIUM INJ 100 MCG/5 ML VIAL 50 MCG IV PUSH (05:35)
[2023-11-03] MEDS: PANTOPRAZOLE SODIUM IV 40 MG VIAL IV PUSH (10:00)
[2023-11-03] MEDS: LIDOCAINE 5% PATCH 1 PATCH TRANSDERM (10:00)
--- NOTE | 2023-11-03 10:22 | P.PNNP_ITS ---
Progress Note: A&P Assessment and Plan (1) Chronic kidney disease, stage 4 (severe): Code(s): N18.4 - Chronic kidney disease, stage 4 (severe) Status: Chronic Assessment and Plan: * creatinine had been running ~ 2ish [place] in 2021 * due to HTN, DM, CHF/cardiomyopathy, vascular disease, EILEEN/pulmonary hypertension, and age-related change * recently the creatinine has been higher due to higher doses of diuretics. * On admission his creatinine was as high as 3.7. It has been falling with improvement in GI status plus IV fluids. Today's value was 3.0 * He is getting IV fluids. * chest x-ray today shows improvement in interstitial edema * continue fluid management. (2) Colitis: Code(s): K52.9 - Noninfective gastroenteritis and colitis, unspecified Status: Acute Assessment and Plan: * presented with diarrhea * CT scan showing descending colitis * C Diff negative; other stool studies pending * on antibiotics * Colonoscopy showed ischemia. (3) Elevated troponin: Code(s): R77.8 - Other specified abnormalities of plasma proteins Status: Acute Assessment and Plan: * no symptoms of chest pain * Cardiology recommendations noted * continue medical management for now (4) Atrial fibrillation: Qualifiers: Atrial fibrillation type: paroxysmal Qualified Code(s): I48.0 - Paroxysmal atrial fibrillation Code(s): I48.91 - Unspecified atrial fibrillation Status: Acute Assessment and Plan: on anticoagulation with warfarin already * continue current therapy * heart rate is good at 60-90 (5) Hypertension: Qualifiers: Hypertension type: primary hypertension Qualified Code(s): I10 - Essential (primary) hypertension Code(s): I10 - Essential (primary) hypertension Status: Chronic Assessment and Plan: * despite history, BP running on the low/soft side * BP medications on hold * started on midodrine * continue to hold blood pressure meds. Systolic is running in the 90s. (6) Type 2 diabetes mellitus: Qualifiers: Diabetes mellitus computer terminal operator insulin use: with senior living use Diabetes mellitus complication status: with circulatory complication Diabetes mellitus complication detail: with other circulatory complications Qualified Code(s): E11.59 - Type 2 diabetes mellitus with other circulatory complications; Z79.4 - [facility] (current) use of insulin Code(s): E11.9 - Type 2 diabetes mellitus without complications Status: Chronic Assessment and Plan: * follow accu-cheks * glycemic control per hospitalists Subjective Date/time seen: 11/03/23 10:22 Interval history: Nigel is feeling a little better today. His belly is less distended and is less painful. He still hates the NG tube of course. NG still to intermittent suction Exam Narrative: General: elderly male in NAD Heart:IRRR, normal S1 and S2; no rub or gallop Lungs: coarse breath sounds and decreased at bases Abdomen: soft, +TTP with distension, positive bowel sounds Extremities: no cyanosis or clubbing; trace edema Skin: no rash Objective Data Vital Signs Vital Signs: Vital Signs - 24 hr 11/02/23 12:04 11/02/23 14:07 11/02/23 12:00 Temperature 97.4 F L 97.1 F L Pulse Rate 60 73 89 Respiratory Rate 18 24 H Blood Pressure 102/87 122/77 P
--- NOTE | 2023-11-03 10:22 | PM.PNNEP ---
Progress Note: A&P Assessment and Plan (1) Chronic kidney disease, stage 4 (severe): Code(s): N18.4 - Chronic kidney disease, stage 4 (severe) Status: Chronic Assessment and Plan: creatinine had been running ~ 2ish [place] in 2021 due to HTN, DM, CHF/cardiomyopathy, vascular disease, EILEEN/pulmonary hypertension, and age-related change recently the creatinine has been higher due to higher doses of diuretics. On admission his creatinine was as high as 3.7. It has been falling with improvement in GI status plus IV fluids. Today's value was 3.0 He is getting IV fluids. chest x-ray today shows improvement in interstitial edema continue fluid management. (2) Colitis: Code(s): K52.9 - Noninfective gastroenteritis and colitis, unspecified Status: Acute Assessment and Plan: presented with diarrhea CT scan showing descending colitis C Diff negative; other stool studies pending on antibiotics Colonoscopy showed ischemia. (3) Elevated troponin: Code(s): R77.8 - Other specified abnormalities of plasma proteins Status: Acute Assessment and Plan: no symptoms of chest pain Cardiology recommendations noted continue medical management for now (4) Atrial fibrillation: Qualifiers: Atrial fibrillation type: paroxysmal Qualified Code(s): I48.0 - Paroxysmal atrial fibrillation Code(s): I48.91 - Unspecified atrial fibrillation Status: Acute Assessment and Plan: on anticoagulation with warfarin already continue current therapy heart rate is good at 60-90 (5) Hypertension: Qualifiers: Hypertension type: primary hypertension Qualified Code(s): I10 - Essential (primary) hypertension Code(s): I10 - Essential (primary) hypertension Status: Chronic Assessment and Plan: despite history, BP running on the low/soft side BP medications on hold started on midodrine continue to hold blood pressure meds. Systolic is running in the 90s. (6) Type 2 diabetes mellitus: Qualifiers: Diabetes mellitus terminal makeup operator insulin use: with correction use Diabetes mellitus complication status: with circulatory complication Diabetes mellitus complication detail: with other circulatory complications Qualified Code(s): E11.59 - Type 2 diabetes mellitus with other circulatory complications; Z79.4 - [facility] (current) use of insulin Code(s): E11.9 - Type 2 diabetes mellitus without complications Status: Chronic Assessment and Plan: follow accu-cheks glycemic control per hospitalists Subjective Date/time seen: 11/03/23 10:22 Interval history: Nigel is feeling a little better today. His belly is less distended and is less painful. He still hates the NG tube of course. NG still to intermittent suction Exam Narrative: General: elderly male in NAD Heart:IRRR, normal S1 and S2; no rub or gallop Lungs: coarse breath sounds and decreased at bases Abdomen: soft, +TTP with distension, positive bowel sounds Extremities: no cyanosis or clubbing; trace edema Skin: no rash Objective Data Vital Signs Vital Signs: Vital Signs - 24 hr 11/02/23 12:04 11/02/23 14:07 11/02/23 12:00 Temperature 97.4 F L 97.1 F L Pulse Rate 60 73 89 Respiratory Rate 18 24 H Blood Pressure 102/87 122/77 Pulse Oximetry 96 98 Oxygen Delivery Room Air 11/02/23 14:52 11/02/23 15:02 11/02/23 15:12 Temperature Pulse Rate 84 81 84 Respiratory Rate 20 20 20 Blood Pressure 109/63 110/80 105/67 Pulse Oximetry 100 97 97 Oxygen Delivery Room Air Room Air Room Air 11/02/23 16:14 11/02/23 16:47 11/02/23 12:00 Temperature 98.2 F Pulse Rate 62 91 Respiratory Rate 18 Blood Pressure 109/59 L Pulse Oximetry 95 Oxygen Delivery Room Air 11/02/23 16:00 11/02/23 18:00 11/02/23 16:00 Temperature Pulse Rate 80 72 Respiratory Rate Blood P
--- NOTE | 2023-11-03 11:53 | PCPTNOTE ---
11/03/23 MW PT - eval completed
[2023-11-03 12:11] LABS: Glucose Point of Care 124 mg/dl (65-105)
--- NOTE | 2023-11-03 12:28 | PM.IMPN ---
Progress Note: A&P Assessment and Plan (1) Epigastric pain: Code(s): R10.13 - Epigastric pain Status: Acute Assessment and Plan: Palpable pain. Probably gastritis or related to his colitis. Add mylanta. Change Protonix to IV. Monitor HH closely. 11/01: ileus, appreciate surgery consult, ng placed 11/02: unchanged 11/03: appreciate surgery management, cont (2) Atrial fibrillation: Qualifiers: Atrial fibrillation type: paroxysmal Qualified Code(s): I48.0 - Paroxysmal atrial fibrillation Code(s): I48.91 - Unspecified atrial fibrillation Status: Acute Assessment and Plan: Patient with AFib with presumably rate related BBB on tele. 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 Possibly inferior AMI so discussed with Cardiology who felt more likely rate related BBB. Previous EKGs reviewed. Consider runs of NSVT. He is off his Imdur due to soft BP. Flattened troponins. 11/01: restart coumadin when taking po, INR stable (3) Colitis: Code(s): K52.9 - Noninfective gastroenteritis and colitis, unspecified Status: Acute Assessment and Plan: patient presents with diarrhea. CT scan showing descending colitis. CDiff negative. Other stool studies pending. Continue with ceftriaxone and Flagyl 11/01: abx switched to zosyn 11/02: cont zosyn, colonoscopy today 11/03: colonoscopy yest showed ischemic colitis w/ diverticulosis no perf/abscess (4) Acute kidney injury superimposed on CKD: Code(s): N17.9 - Acute kidney failure, unspecified; N18.9 - Chronic kidney disease, unspecified Status: Acute Assessment and Plan: Cr 2.4-2.9 in August. Cr 3.5 on admission. Probably related to dehydration from Bumex and recent GI symptoms. Ultrasound showing normal right kidney but left not visualized. Bumex on hold Avoid nephrotoxins Follow UOP, electrolytes and renal function 11/02: Getting gentle IV fluids, appreciate nephrology consult, stable 11/03: Cr improving, down to 3 (5) CHF (congestive heart failure): Qualifiers: Heart failure chronicity: unspecified Heart failure type: unspecified Qualified Code(s): I50.9 - Heart failure, unspecified Code(s): I50.9 - Heart failure, unspecified Status: Acute Assessment and Plan: Echo showing EF 20-25% with diastolic dysfunction grade I. Bumex on hold as mentioned above Low-dose midodrine added for blood pressure Continue with Plavix metoprolol, losartan, Hydralazine and Imdur on hold. 10/31: looks more fluid overloaded, initiate IV lasix 11/01: likely euvolemic, hold lasix (6) Coronary artery disease: Code(s): I25.10 - Atherosclerotic heart disease of [place] coronary artery without angina pectoris Status: Chronic Assessment and Plan: Hx of coronary stenting x10 in [facility]. No ischemic evaluation performed here. Continue Plavix. Add ASA. (7) Type 2 diabetes mellitus: Qualifiers: Diabetes mellitus terminal system operator insulin use: with terminal system operator use Diabetes mellitus complication status: with circulatory complication Diabetes mellitus complication detail: with other circulatory complications Qualified Code(s): E11.59 - Type 2 diabetes mellitus with other circulatory complications; Z79.4 - [facility] (current) use of insulin Code(s): E11.9 - Type 2 diabetes mellitus without complications Status: Chronic Assessment and Plan: The patient's blood glucose was reviewed on 11/03 Glucose remains well controlled. Continue AccuCheks covering with sliding scale. Hypoglycemia protocol available as needed. Continue to monitor. (8) Osteoarthritis of right hip: Qualifiers: Osteoarthritis type: primary Qualified Code(s): M16.11 - Unilateral primary osteoarthritis, right hip Code(s): M16.11 - Unilateral primary osteoarthritis, right hip Status: Acute Assessment and Plan: Right hip x-ray negati
[2023-11-03] MEDS: HALOPERIDOL LACTATE 5 MG/ML VIAL 2 MG IV PUSH (13:00)
--- NOTE | 2023-11-03 13:35 | WPDGIPROGNO ---
Progress Note: A&P Assessment and Plan (1) Ischemic colitis: Code(s): K55.9 - Vascular disorder of intestine, unspecified Status: Acute Assessment and Plan: kub with ileus but clinically better, on abx denies abdominal pain, no nausea, remove ngt soon (2) Ileus, unspecified: Code(s): K56.7 - Ileus, unspecified Status: Acute (3) Acute kidney injury superimposed on CKD: Code(s): N17.9 - Acute kidney failure, unspecified; N18.9 - Chronic kidney disease, unspecified Status: Acute Assessment and Plan: stable (4) CHF (congestive heart failure): Qualifiers: Heart failure chronicity: unspecified Heart failure type: unspecified Qualified Code(s): I50.9 - Heart failure, unspecified Code(s): I50.9 - Heart failure, unspecified Status: Acute (5) Atrial fibrillation: Qualifiers: Atrial fibrillation type: paroxysmal Qualified Code(s): I48.0 - Paroxysmal atrial fibrillation Code(s): I48.91 - Unspecified atrial fibrillation Status: Acute Assessment and Plan: by primary Subjective Date/time seen: 11/03/23 13:35 Interval history: colonoscopy showed left sided ischemic colitis he says that is passing gas, denies abdominal pain and no nausea. Still NGT in place, he is hungry Review of Systems Review of Systems: All systems reviewed & are unremarkable except as noted in HPI and below Exam Const: General: comfortable HENMT: Other: ngt in place Eyes: Sclera: sclerae normal Neck: Neck: supple Resp: Effort & Inspection: normal respiratory effort Cardio: Rhythm: abnormal rhythm irregularly irregular GI: GI Palp: Yes Soft to palpation, No Tenderness to palpation present (GI) and No Guarding due to palpation present (GI) Other: + BS Skin: General skin exam: normal color Neuro: Speech: normal speech Motor exam (neuro): 5/5 motor strength present throughout Extrem: General: normal to inspection Psych: Mental Status: mental status grossly normal Objective Data Vital Signs Vital Signs: Vital Signs - 24 hr 11/02/23 14:07 11/02/23 14:52 11/02/23 15:02 Temperature 97.1 F L Pulse Rate 73 84 81 Respiratory Rate 24 H 20 20 Blood Pressure 122/77 109/63 110/80 Pulse Oximetry 98 100 97 Oxygen Delivery Room Air Room Air Room Air 11/02/23 15:12 11/02/23 16:14 11/02/23 16:47 Temperature 98.2 F Pulse Rate 84 62 91 Respiratory Rate 20 18 Blood Pressure 105/67 109/59 L Pulse Oximetry 97 95 Oxygen Delivery Room Air 11/02/23 16:00 11/02/23 18:00 11/02/23 16:00 Temperature Pulse Rate 80 72 Respiratory Rate Blood Pressure Pulse Oximetry Oxygen Delivery Room Air 11/02/23 19:33 11/02/23 20:36 11/02/23 20:00 Temperature 97.1 F L Pulse Rate 82 78 Respiratory Rate 20 Blood Pressure 119/70 Pulse Oximetry 96 Oxygen Delivery Room Air 11/02/23 20:00 11/02/23 22:00 11/03/23 00:00 Temperature 97.3 F L Pulse Rate 82 86 90 Respiratory Rate 20 Blood Pressure 122/72 Pulse Oximetry 94 Oxygen Delivery 11/03/23 00:00 11/03/23 00:00 11/03/23 02:00 Temperature Pulse Rate 92 80 Respiratory Rate Blood Pressure Pulse Oximetry Oxygen Delivery Room Air 11/03/23 04:00 11/03/23 04:00 11/03/23 04:00 Temperature 96.9 F L Pulse Rate 94 90 Respiratory Rate 20 Blood Pressure 120/73 Pulse Oximetry 95 Oxygen Delivery Room Air 11/03/23 03:00 11/03/23 06:00 11/03/23 08:00 Temperature 97.9 F Pulse Rate 93 96 85 Respiratory Rate 28 H Blood Pressure 96/57 L Pulse Oximetry 93 Oxygen Delivery 11/03/23 10:00 11/03/23 08:00 11/03/23 08:00 Temperature Pulse Rate 89 98 Respiratory Rate Blood Pressure Pulse Oximetry 93 Oxygen Delivery Room Air 11/03/23 10:00 11/03/23 11:42 11/03/23 12:00 Temperature 97.5 F L Pulse Rate 83 77 Respiratory Rate 16 Blood Pressure 108/77 Pul
--- NOTE | 2023-11-03 16:55 | PC.NURSE ---
Updated son and [id number] on plan of care and patient condition
[2023-11-03 18:06] LABS: Glucose Point of Care 121 mg/dl (65-105)
[2023-11-03 20:11] LABS: Glucose Point of Care 114 mg/dl (65-105)
[2023-11-03] MEDS: LORazepam INJ (*CRX) 2 MG/ML VIAL 1 MG IV PUSH (21:51)
[2023-11-03] MEDS: DOXAZOSIN MESYLATE 2 MG TABLET PO (21:51)
[2023-11-03] MEDS: INSULIN GLARGINE (*BKC) 100 UNITS/ML SUB-Q (22:05)
[2023-11-03 23:38] LABS: Glucose Point of Care 119 mg/dl (65-105)
[2023-11-04] VITALS (19 sets, daily range): BP systolic 100–112; BP diastolic 60–76; PULSE 70–100; RESP 16–20; TEMP 36.3–36.7; O2SAT 94–97
[2023-11-04] MEDS: METOPROLOL TARTRATE INJ 5 MG/5 ML VIAL IV PUSH ×4 (03:40→21:06)
[2023-11-04] MEDS: PIPERACILLN/TAZ 3.375GM/NS50ML 3.375 GM/50 ML BAG IVPB ×4 (03:41→21:10)
[2023-11-04 04:00] LABS: Basophils Absolute Auto 0.1 K/mm3 (0.0-0.1); Basophils Percent Auto 0.8 % (0.2-1.2); Eosinophils Absolute Auto 0.4 K/mm3 (0-0.3); Eosinophils Percent Auto 4.3 % (0-4.4); Hematocrit 34.1 % (42.0-52.0); Hemoglobin 9.8 g/dL (14.0-18.0); Immature Granulocyte Absolute 0.12 K/mm3 (0.00-0.031); Immature Granulocyte Percent A 1.3 % (0-0.5); Lymphocytes Absolute Auto 1.18 K/mm3 (0.9-3.2); Lymphocytes Percent Auto 13.1 % (18.3-44.2); Mean Corpuscular HGB Conc 28.7 g/dl (32-36); Mean Corpuscular Hemoglobin 30.7 pg (26-34); Mean Corpuscular Volume 106.9 fl (80-100); Mean Platelet Volume 10.9 fl (7.4-10.4); Monocytes Absolute Auto 0.8 K/mm3 (0.1-0.6); Monocytes Percent Auto 8.3 % (2.6-8.5); Neutrophils Absolute Auto 6.5 K/mm3 (1.3-6.7); Neutrophils Percent Auto 72.2 % (45.5-73.1); Platelet Count Result 262 k/mm3 (150-375); Red Blood Count 3.19 M/mm3 (4.6-6.20); Red Cell Distribution Width 16.3 % (11.5-14.5)
[2023-11-04 04:14] LABS: Alanine Aminotransferase 11 U/L (6-50); Albumin Level 3.2 g/dL (3.5-5.1); Alkaline Phosphatase 74 U/L (38-126); Anion Gap 15 mmol/L (8-16); Aspartate Amino Transferase 24 U/L (17-59); Bilirubin,Total 0.5 mg/dL (0.2-1.3); Blood Urea Nitrogen 69 mg/dL (9-20); Calcium 8.4 mg/dL (8.4-10.2); Carbon Dioxide 18 mmol/L (22-30); Chloride 109 mmol/L (98-107); Estimated CRCL calculation 28 ml/min; Estimated Glomerular Filt Rate 23; Glucose 115 mg/dL (65-110); Magnesium 2.8 mg/dL (1.6-2.3); Phosphorus 3.9 mg/dL (2.5-4.5); Potassium 4.5 mmol/L (3.4-5.0); Sodium 142 mmol/L (137-145)
[2023-11-04] MEDS: LEVOTHYROXINE SODIUM INJ 100 MCG/5 ML VIAL 50 MCG IV PUSH (05:38)
[2023-11-04 05:41] LABS: Glucose Point of Care 122 mg/dl (65-105)
[2023-11-04] MEDS: KCL 20MEQ/0.9% SOD CHL 1,000 ML 80 ML IV CONT (06:12)
[2023-11-04] MEDS: LIDOCAINE 5% PATCH 1 PATCH TRANSDERM (09:02)
[2023-11-04] MEDS: PANTOPRAZOLE SODIUM IV 40 MG VIAL IV PUSH (09:02)
--- NOTE | 2023-11-04 09:38 | P.PNNP_ITS ---
Progress Note: A&P Assessment and Plan (1) Chronic kidney disease, stage 4 (severe): Code(s): N18.4 - Chronic kidney disease, stage 4 (severe) Status: Chronic Assessment and Plan: * creatinine had been running ~ 2ish [place] in 2021 * due to HTN, DM, CHF/cardiomyopathy, vascular disease, EILEEN/pulmonary hypertension, and age-related change * recently the creatinine has been higher due to higher doses of diuretics. * On admission his creatinine was as high as 3.7. It has been falling with improvement in GI status plus IV fluids. his creatinine has improved to 2.7. * He is getting IV fluids. * chest x-ray today shows improvement in interstitial edema * his bicarbonate level dropped a bit. Probably dilutional. Will switch to a bicarb in his fluids * potassium is doing okay so will keep the potassium in the fluid (2) Colitis: Code(s): K52.9 - Noninfective gastroenteritis and colitis, unspecified Status: Acute Assessment and Plan: * presented with diarrhea * CT scan showing descending colitis * C Diff negative; other stool studies pending * on antibiotics * Colonoscopy showed ischemia. * his belly looks softer (3) Elevated troponin: Code(s): R77.8 - Other specified abnormalities of plasma proteins Status: Acute Assessment and Plan: * no symptoms of chest pain * Cardiology recommendations noted * continue medical management for now (4) Atrial fibrillation: Qualifiers: Atrial fibrillation type: paroxysmal Qualified Code(s): I48.0 - Paroxysmal atrial fibrillation Code(s): I48.91 - Unspecified atrial fibrillation Status: Acute Assessment and Plan: on anticoagulation with warfarin already * continue current therapy * heart rate is good at 70 current (5) Hypertension: Qualifiers: Hypertension type: primary hypertension Qualified Code(s): I10 - Essential (primary) hypertension Code(s): I10 - Essential (primary) hypertension Status: Chronic Assessment and Plan: * despite history, BP running on the low/soft side * BP medications on hold * started on midodrine * continue to hold blood pressure meds. Systolic is running in the 96-115 range (6) Type 2 diabetes mellitus: Qualifiers: Diabetes mellitus terminal gauger insulin use: with terminal gauger use Diabetes mellitus complication status: with circulatory complication Diabetes mellitus complication detail: with other circulatory complications Qualified Code(s): E11.59 - Type 2 diabetes mellitus with other circulatory complications; Z79.4 - snf (current) use of insulin Code(s): E11.9 - Type 2 diabetes mellitus without complications Status: Chronic Assessment and Plan: * follow accu-cheks * glycemic control per hospitalists Subjective Date/time seen: 11/04/23 09:38 Interval history: Patient is sleepy this morning. Nursing said this is the way he has been. The patient waking. He says he is not having any belly pain and is passing some gas. No chest pain Exam Narrative: General: elderly male in NAD Heart:IRRR, normal S1 and S2; no rub Lungs: coarse breath sounds and decreased at bases Abdomen: soft, distended, not as tender today ; bowel sounds hypoactive. Extremities: no cyanosis or clubbing; trace edema Skin: no rash or subcu nodules Objective Data Vital Signs Vital Signs: Vital Sign
--- NOTE | 2023-11-04 09:38 | PM.PNNEP ---
Progress Note: A&P Assessment and Plan (1) Chronic kidney disease, stage 4 (severe): Code(s): N18.4 - Chronic kidney disease, stage 4 (severe) Status: Chronic Assessment and Plan: creatinine had been running ~ 2ish [place] in 2021 due to HTN, DM, CHF/cardiomyopathy, vascular disease, EILEEN/pulmonary hypertension, and age-related change recently the creatinine has been higher due to higher doses of diuretics. On admission his creatinine was as high as 3.7. It has been falling with improvement in GI status plus IV fluids. his creatinine has improved to 2.7. He is getting IV fluids. chest x-ray today shows improvement in interstitial edema his bicarbonate level dropped a bit. Probably dilutional. Will switch to a bicarb in his fluids potassium is doing okay so will keep the potassium in the fluid (2) Colitis: Code(s): K52.9 - Noninfective gastroenteritis and colitis, unspecified Status: Acute Assessment and Plan: presented with diarrhea CT scan showing descending colitis C Diff negative; other stool studies pending on antibiotics Colonoscopy showed ischemia. his belly looks softer (3) Elevated troponin: Code(s): R77.8 - Other specified abnormalities of plasma proteins Status: Acute Assessment and Plan: no symptoms of chest pain Cardiology recommendations noted continue medical management for now (4) Atrial fibrillation: Qualifiers: Atrial fibrillation type: paroxysmal Qualified Code(s): I48.0 - Paroxysmal atrial fibrillation Code(s): I48.91 - Unspecified atrial fibrillation Status: Acute Assessment and Plan: on anticoagulation with warfarin already continue current therapy heart rate is good at 70 current (5) Hypertension: Qualifiers: Hypertension type: primary hypertension Qualified Code(s): I10 - Essential (primary) hypertension Code(s): I10 - Essential (primary) hypertension Status: Chronic Assessment and Plan: despite history, BP running on the low/soft side BP medications on hold started on midodrine continue to hold blood pressure meds. Systolic is running in the 96-115 range (6) Type 2 diabetes mellitus: Qualifiers: Diabetes mellitus terminal system operator insulin use: with jail use Diabetes mellitus complication status: with circulatory complication Diabetes mellitus complication detail: with other circulatory complications Qualified Code(s): E11.59 - Type 2 diabetes mellitus with other circulatory complications; Z79.4 - FDC (current) use of insulin Code(s): E11.9 - Type 2 diabetes mellitus without complications Status: Chronic Assessment and Plan: follow accu-cheks glycemic control per hospitalists Subjective Date/time seen: 11/04/23 09:38 Interval history: Patient is sleepy this morning. Nursing said this is the way he has been. The patient waking. He says he is not having any belly pain and is passing some gas. No chest pain Exam Narrative: General: elderly male in NAD Heart:IRRR, normal S1 and S2; no rub Lungs: coarse breath sounds and decreased at bases Abdomen: soft, distended, not as tender today ; bowel sounds hypoactive. Extremities: no cyanosis or clubbing; trace edema Skin: no rash or subcu nodules Objective Data Vital Signs Vital Signs: Vital Signs - 24 hr 11/03/23 10:00 11/03/23 10:00 11/03/23 11:42 Temperature Pulse Rate 89 83 Respiratory Rate Blood Pressure Pulse Oximetry Oxygen Delivery Room Air 11/03/23 12:00 11/03/23 12:00 11/03/23 14:00 Temperature 97.5 F L Pulse Rate 77 85 88 Respiratory Rate 16 Blood Pressure 108/77 Pulse Oximetry 99 Oxygen Delivery 11/03/23 12:00 11/03/23 15:30 11/03/23 16:00 Temperature Pulse Rate 84 Respiratory Rate Blood Pressure Pulse Oximetry 94 95 Oxy
[2023-11-04 11:55] LABS: Glucose Point of Care 115 mg/dl (65-105)
--- NOTE | 2023-11-04 14:19 | WPDGIPROGNO ---
Progress Note: A&P Assessment and Plan (1) Ischemic colitis: Code(s): K55.9 - Vascular disorder of intestine, unspecified Status: Acute Assessment and Plan: kub with ileus but clinically better, on abx denies abdominal pain and passing gas clamp ngt and if no nausea then start liquid diet (2) Ileus, unspecified: Code(s): K56.7 - Ileus, unspecified Status: Acute Assessment and Plan: supportive care (3) Acute kidney injury superimposed on CKD: Code(s): N17.9 - Acute kidney failure, unspecified; N18.9 - Chronic kidney disease, unspecified Status: Acute Assessment and Plan: slowly trending down but creat up, nephrology on board (4) CHF (congestive heart failure): Qualifiers: Heart failure chronicity: unspecified Heart failure type: unspecified Qualified Code(s): I50.9 - Heart failure, unspecified Code(s): I50.9 - Heart failure, unspecified Status: Acute (5) Atrial fibrillation: Qualifiers: Atrial fibrillation type: paroxysmal Qualified Code(s): I48.0 - Paroxysmal atrial fibrillation Code(s): I48.91 - Unspecified atrial fibrillation Status: Acute Assessment and Plan: by primary Subjective Date/time seen: 11/04/23 14:19 Interval history: NGT in place, he is very hungry. he is passing gas, abdomen distended but no pain sitter at bedside Review of Systems Review of Systems: All systems reviewed & are unremarkable except as noted in HPI and below Exam Const: General: comfortable HENMT: Other: ngt in place Eyes: Sclera: sclerae normal Neck: Neck: supple Resp: Effort & Inspection: normal respiratory effort Cardio: Rhythm: abnormal rhythm irregularly irregular GI: Inspection: distended GI Palp: Yes Soft to palpation, No Tenderness to palpation present (GI) and No Guarding due to palpation present (GI) Other: + BS but decreased Skin: General skin exam: normal color Neuro: Speech: normal speech Motor exam (neuro): 5/5 motor strength present throughout Extrem: General: normal to inspection Psych: Mental Status: mental status grossly normal Objective Data Vital Signs Vital Signs: Vital Signs - 24 hr 11/03/23 15:30 11/03/23 16:00 11/03/23 16:10 Temperature 98.1 F Pulse Rate 84 64 Respiratory Rate 12 Blood Pressure 119/63 Pulse Oximetry 95 98 Oxygen Delivery Room Air 11/03/23 16:00 11/03/23 16:00 11/03/23 18:00 Temperature 97.8 F Pulse Rate 79 69 71 Respiratory Rate 16 Blood Pressure 120/60 Pulse Oximetry 97 Oxygen Delivery 11/03/23 19:38 11/03/23 20:00 11/03/23 21:56 Temperature 97.6 F Pulse Rate 78 78 96 Respiratory Rate 18 18 Blood Pressure 110/78 Pulse Oximetry 98 98 Oxygen Delivery Room Air 11/03/23 20:00 11/03/23 22:00 11/03/23 23:37 Temperature 97.6 F Pulse Rate 70 81 70 Respiratory Rate 18 Blood Pressure 115/74 Pulse Oximetry 96 Oxygen Delivery 11/04/23 00:00 11/04/23 00:00 11/04/23 03:40 Temperature Pulse Rate 70 81 83 Respiratory Rate 18 Blood Pressure Pulse Oximetry 96 Oxygen Delivery Room Air 11/04/23 02:00 11/04/23 04:20 11/04/23 04:00 Temperature 97.8 F Pulse Rate 84 82 82 Respiratory Rate 18 18 Blood Pressure 100/60 Pulse Oximetry 96 96 Oxygen Delivery Room Air 11/04/23 04:00 11/04/23 05:54 11/04/23 08:00 Temperature 98.0 F Pulse Rate 71 83 92 Respiratory Rate 20 Blood Pressure 111/65 Pulse Oximetry 94 Oxygen Delivery 11/04/23 09:02 11/04/23 08:00 11/04/23 10:00 Temperature Pulse Rate 77 86 81 Respiratory Rate Blood Pressure Pulse Oximetry Oxygen Delivery 11/04/23 08:00 11/04/23 11:38 11/04/23 12:00 Temperature 97.8 F Pulse Rate 88 Respiratory Rate 16 Blood Pressure 101/61 Pulse Oximetry 94 96 96 Oxygen Delivery Room Air Room Air Intake/Output Intake/Output: Intake & Output
--- NOTE | 2023-11-04 17:09 | PM.IMPN ---
Progress Note: A&P Assessment and Plan (1) Epigastric pain: Code(s): R10.13 - Epigastric pain Status: Acute Assessment and Plan: Palpable pain. Probably gastritis or related to his colitis. Add mylanta. Change Protonix to IV. Monitor HH closely. 11/01: ileus, appreciate surgery consult, ng placed 11/02: unchanged 11/03: appreciate surgery management, cont 11/04: clamp ng, start diet if no nausea (2) Atrial fibrillation: Qualifiers: Atrial fibrillation type: paroxysmal Qualified Code(s): I48.0 - Paroxysmal atrial fibrillation Code(s): I48.91 - Unspecified atrial fibrillation Status: Acute Assessment and Plan: Patient with AFib with presumably rate related BBB on tele. 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 Possibly inferior AMI so discussed with Cardiology who felt more likely rate related BBB. Previous EKGs reviewed. Consider runs of NSVT. He is off his Imdur due to soft BP. Flattened troponins. 11/01: restart coumadin when taking po, INR stable (3) Colitis: Code(s): K52.9 - Noninfective gastroenteritis and colitis, unspecified Status: Acute Assessment and Plan: patient presents with diarrhea. CT scan showing descending colitis. CDiff negative. Other stool studies pending. Continue with ceftriaxone and Flagyl 11/01: abx switched to zosyn 11/02: cont zosyn, colonoscopy today 11/03: colonoscopy yest showed ischemic colitis w/ diverticulosis no perf/abscess (4) Acute kidney injury superimposed on CKD: Code(s): N17.9 - Acute kidney failure, unspecified; N18.9 - Chronic kidney disease, unspecified Status: Acute Assessment and Plan: Cr 2.4-2.9 in August. Cr 3.5 on admission. Probably related to dehydration from Bumex and recent GI symptoms. Ultrasound showing normal right kidney but left not visualized. Bumex on hold Avoid nephrotoxins Follow UOP, electrolytes and renal function improving (5) CHF (congestive heart failure): Qualifiers: Heart failure chronicity: unspecified Heart failure type: unspecified Qualified Code(s): I50.9 - Heart failure, unspecified Code(s): I50.9 - Heart failure, unspecified Status: Acute Assessment and Plan: Echo showing EF 20-25% with diastolic dysfunction grade I. Bumex on hold as mentioned above Low-dose midodrine added for blood pressure Continue with Plavix metoprolol, losartan, Hydralazine and Imdur on hold. 10/31: looks more fluid overloaded, initiate IV lasix 11/01: likely euvolemic, hold lasix (6) Coronary artery disease: Code(s): I25.10 - Atherosclerotic heart disease of [place] coronary artery without angina pectoris Status: Chronic Assessment and Plan: Hx of coronary stenting x10 in [facility]. No ischemic evaluation performed here. Continue Plavix. Add ASA. (7) Type 2 diabetes mellitus: Qualifiers: Diabetes mellitus usp insulin use: with usp use Diabetes mellitus complication status: with circulatory complication Diabetes mellitus complication detail: with other circulatory complications Qualified Code(s): E11.59 - Type 2 diabetes mellitus with other circulatory complications; Z79.4 - buttermaker (current) use of insulin Code(s): E11.9 - Type 2 diabetes mellitus without complications Status: Chronic Assessment and Plan: The patient's blood glucose was reviewed on 11/04 Glucose remains well controlled. Continue AccuCheks covering with sliding scale. Hypoglycemia protocol available as needed. Continue to monitor. (8) Osteoarthritis of right hip: Qualifiers: Osteoarthritis type: primary Qualified Code(s): M16.11 - Unilateral primary osteoarthritis, right hip Code(s): M16.11 - Unilateral primary osteoarthritis, right hip Status: Acute Assessment and Plan: Right hip x-ray negative for any acute etiology/pathology CT showing mo
[2023-11-04 18:58] LABS: Glucose Point of Care 214 mg/dl (65-105)
[2023-11-04 20:21] LABS: Glucose Point of Care 212 mg/dl (65-105)
[2023-11-04] MEDS: DOXAZOSIN MESYLATE 2 MG TABLET PO (21:05)
[2023-11-04] MEDS: QUEtiapine FUMARATE 12.5 MG TABLET PO (21:05)
[2023-11-04] MEDS: INSULIN GLARGINE (*BKC) 100 UNITS/ML SUB-Q (21:13)
[2023-11-05] VITALS (20 sets, daily range): BP systolic 92–115; BP diastolic 53–65; PULSE 81–106; RESP 18–20; TEMP 36.2–36.8; O2SAT 91–99; BMI 38.2
[2023-11-05] MEDS: METOPROLOL TARTRATE INJ 5 MG/5 ML VIAL IV PUSH ×4 (03:12→21:06)
[2023-11-05] MEDS: PIPERACILLN/TAZ 3.375GM/NS50ML 3.375 GM/50 ML BAG IVPB ×4 (03:15→21:06)
[2023-11-05 04:43] LABS: Hematocrit 31.6 % (42.0-52.0); Hemoglobin 9.4 g/dL (14.0-18.0); Mean Corpuscular HGB Conc 29.7 g/dl (32-36); Mean Corpuscular Hemoglobin 30.9 pg (26-34); Mean Corpuscular Volume 103.9 fl (80-100); Mean Platelet Volume 10.7 fl (7.4-10.4); Platelet Count Result 263 k/mm3 (150-375); Red Blood Count 3.04 M/mm3 (4.6-6.20); Red Cell Distribution Width 16.3 % (11.5-14.5); White Blood Count 9.1 K/mm3 (4.5-10.0)
[2023-11-05 04:55] LABS: Albumin Level 2.9 g/dL (3.5-5.1); Anion Gap 10 mmol/L (8-16); Blood Urea Nitrogen 69 mg/dL (9-20); Calcium 8.2 mg/dL (8.4-10.2); Carbon Dioxide 23 mmol/L (22-30); Chloride 111 mmol/L (98-107); Estimated CRCL calculation 29 ml/min; Estimated Glomerular Filt Rate 23; Glucose 165 mg/dL (65-110); Phosphorus 3.3 mg/dL (2.5-4.5); Potassium 3.9 mmol/L (3.4-5.0); Sodium 144 mmol/L (137-145)
[2023-11-05] MEDS: LEVOTHYROXINE SODIUM INJ 100 MCG/5 ML VIAL 50 MCG IV PUSH (06:17)
[2023-11-05 07:43] LABS: Glucose Point of Care 156 mg/dl (65-105)
--- NOTE | 2023-11-05 08:42 | PCOTNOTE ---
Patient refused treatment this session. Patient stated he will not work with therapy until he get the tube (ng) out. will follow up later today.
[2023-11-05] MEDS: LIDOCAINE 5% PATCH 1 PATCH TRANSDERM (08:48)
[2023-11-05] MEDS: FLUTICASONE PROPIONATE 0.05% NA SPR 16 GM BTL (*BKC) 1 SPRAY NASAL (08:48)
[2023-11-05] MEDS: PANTOPRAZOLE SODIUM IV 40 MG VIAL IV PUSH (08:48)
--- NOTE | 2023-11-05 09:41 | PM.IMPN ---
Progress Note: A&P Assessment and Plan (1) Epigastric pain: Code(s): R10.13 - Epigastric pain Status: Acute Assessment and Plan: Palpable pain. Probably gastritis or related to his colitis. Add mylanta. Change Protonix to IV. Monitor HH closely. 11/01: ileus, appreciate surgery consult, ng placed 11/02: unchanged 11/03: appreciate surgery management, cont 11/04: clamp ng, start diet if no nausea 11/05: CLD (2) Atrial fibrillation: Qualifiers: Atrial fibrillation type: paroxysmal Qualified Code(s): I48.0 - Paroxysmal atrial fibrillation Code(s): I48.91 - Unspecified atrial fibrillation Status: Acute Assessment and Plan: Patient with AFib with presumably rate related BBB on tele. 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 Possibly inferior AMI so discussed with Cardiology who felt more likely rate related BBB. Previous EKGs reviewed. Consider runs of NSVT. He is off his Imdur due to soft BP. Flattened troponins. 11/05: restart coumadin today, monitor INR (3) Colitis: Code(s): K52.9 - Noninfective gastroenteritis and colitis, unspecified Status: Acute Assessment and Plan: patient presents with diarrhea. CT scan showing descending colitis. CDiff negative. Other stool studies pending. Continue with ceftriaxone and Flagyl 11/01: abx switched to zosyn 11/02: cont zosyn, colonoscopy today 11/03: colonoscopy yest showed ischemic colitis w/ diverticulosis no perf/abscess (4) Acute kidney injury superimposed on CKD: Code(s): N17.9 - Acute kidney failure, unspecified; N18.9 - Chronic kidney disease, unspecified Status: Acute Assessment and Plan: Cr 2.4-2.9 in August. Cr 3.5 on admission. Probably related to dehydration from Bumex and recent GI symptoms. Ultrasound showing normal right kidney but left not visualized. Bumex on hold Avoid nephrotoxins Follow UOP, electrolytes and renal function Improving (5) CHF (congestive heart failure): Qualifiers: Heart failure chronicity: unspecified Heart failure type: unspecified Qualified Code(s): I50.9 - Heart failure, unspecified Code(s): I50.9 - Heart failure, unspecified Status: Acute Assessment and Plan: Echo showing EF 20-25% with diastolic dysfunction grade I. Bumex on hold as mentioned above Low-dose midodrine added for blood pressure Continue with Plavix metoprolol, losartan, Hydralazine and Imdur on hold. 10/31: looks more fluid overloaded, initiate IV lasix 11/01: likely euvolemic, hold lasix (6) Coronary artery disease: Code(s): I25.10 - Atherosclerotic heart disease of [place] coronary artery without angina pectoris Status: Chronic Assessment and Plan: Hx of coronary stenting x10 in [facility]. No ischemic evaluation performed here. Continue Plavix. Add ASA. (7) Type 2 diabetes mellitus: Qualifiers: Diabetes mellitus complication detail: with other circulatory complications Diabetes mellitus complication status: with circulatory complication Diabetes mellitus moth exterminator insulin use: with assisted use Qualified Code(s): E11.59 - Type 2 diabetes mellitus with other circulatory complications; Z79.4 - salvage determiner (current) use of insulin Code(s): E11.9 - Type 2 diabetes mellitus without complications Status: Chronic Assessment and Plan: The patient's blood glucose was reviewed on 11/05 Glucose remains well controlled. Continue AccuCheks covering with sliding scale. Hypoglycemia protocol available as needed. Continue to monitor. (8) Osteoarthritis of right hip: Qualifiers: Osteoarthritis type: primary Qualified Code(s): M16.11 - Unilateral primary osteoarthritis, right hip Code(s): M16.11 - Unilateral primary osteoarthritis, right hip Status: Acute Assessment and Plan: Right hip x-ray negative for any acute etiology/pathology CT showing
[2023-11-05 10:06] LABS: INR 2.7; Prothrombin Time 30.8 Seconds (11.1-14.7)
--- NOTE | 2023-11-05 11:25 | P.PNNP_ITS ---
Progress Note: A&P Assessment and Plan (1) Chronic kidney disease, stage 4 (severe): Code(s): N18.4 - Chronic kidney disease, stage 4 (severe) Status: Chronic Assessment and Plan: * creatinine had been running ~ 2ish [place] in 2021 * due to HTN, DM, CHF/cardiomyopathy, vascular disease, EILEEN/pulmonary hypertension, and age-related change * recently the creatinine has been higher (3ish rnge) due to higher doses of diuretics needed to maintain volume status * on admission his creatinine was as high as 3.7 * it has been declining/falling with improvement in GI status +/- IV fluids and holding diuretics * on gentle bicarb IVFs at this time * try to wean as tolerated * follow repeat labs and UOP (2) Colitis: Code(s): K52.9 - Noninfective gastroenteritis and colitis, unspecified Status: Acute Assessment and Plan: * presented with diarrhea * CT scan showing descending colitis * C Diff negative * on antibiotics * colonoscopy showed ischemia * GI following (3) Elevated troponin: Code(s): R77.8 - Other specified abnormalities of plasma proteins Status: Acute Assessment and Plan: * no symptoms of chest pain * Cardiology recommendations noted * continue medical management for now (4) Atrial fibrillation: Qualifiers: Atrial fibrillation type: paroxysmal Qualified Code(s): I48.0 - Paro xysmal atrial fibrillation Code(s): I48.91 - Unspecified atrial fibrillation Status: Acute Assessment and Plan: * continue rate control strategy * on nticogulation (5) Hypertension: Qualifiers: Hypertension type: primary hypertension Qualified Code(s): I10 - Essential (primary) hypertension Code(s): I10 - Essential (primary) hypertension Status: Chronic Assessment and Plan: * despite history, BP running on the low/soft side * BP medications on hold * was on midodrine * follow trend of hemodynamics (6) Type 2 diabetes mellitus: Qualifiers: Diabetes mellitus usp insulin use: with usp use Diabetes mellitus complication status: with circulatory complication Diabetes mellitus complication detail: with other circulatory complications Qualified Code(s): E11.59 - Type 2 diabetes mellitus with other circulatory complications; Z79.4 - FPC (current) use of insulin Code(s): E11.9 - Type 2 diabetes mellitus without complications Status: Chronic Assessment and Plan: * follow accu-cheks * glycemic control per hospitalists Will continue to follow. Subjective Date/time seen: 11/05/23 11:25 Interval history: Follow-up for chronic kidney disease. Chart reviewed since last seen -- happy NG tube is out; major complaint is that of diarrhea at this time; no other acute issues voiced; no new events overnight or earlier this morning. Exam Narrative: General: elderly male in NAD Heart:IRRR, normal S1 and S2; no rub Lungs: coarse breath sounds and decreased at bases Abdomen: soft, mild distension; + BS Extremities: no cyanosis or clubbing; trace edema Skin: warm and dry Objective Data Vital Signs Vital Signs: Vital Signs Temp Pulse Resp BP Pulse Ox O2 Del Method 11/05/23 11:25 98.1 F 94 20 99/65 L 93 11/05/23 08:00 96 18 93 Room Air 11/05/23 08:00 104 H
--- NOTE | 2023-11-05 11:25 | PM.PNNEP ---
Progress Note: A&P Assessment and Plan (1) Chronic kidney disease, stage 4 (severe): Code(s): N18.4 - Chronic kidney disease, stage 4 (severe) Status: Chronic Assessment and Plan: creatinine had been running ~ 2ish [place] in 2021 due to HTN, DM, CHF/cardiomyopathy, vascular disease, EILEEN/pulmonary hypertension, and age-related change recently the creatinine has been higher (3ish rnge) due to higher doses of diuretics needed to maintain volume status on admission his creatinine was as high as 3.7 it has been declining/falling with improvement in GI status +/- IV fluids and holding diuretics on gentle bicarb IVFs at this time try to wean as tolerated follow repeat labs and UOP (2) Colitis: Code(s): K52.9 - Noninfective gastroenteritis and colitis, unspecified Status: Acute Assessment and Plan: presented with diarrhea CT scan showing descending colitis C Diff negative on antibiotics colonoscopy showed ischemia GI following (3) Elevated troponin: Code(s): R77.8 - Other specified abnormalities of plasma proteins Status: Acute Assessment and Plan: no symptoms of chest pain Cardiology recommendations noted continue medical management for now (4) Atrial fibrillation: Qualifiers: Atrial fibrillation type: paroxysmal Qualified Code(s): I48.0 - Paroxysmal atrial fibrillation Code(s): I48.91 - Unspecified atrial fibrillation Status: Acute Assessment and Plan: continue rate control strategy on nticogulation (5) Hypertension: Qualifiers: Hypertension type: primary hypertension Qualified Code(s): I10 - Essential (primary) hypertension Code(s): I10 - Essential (primary) hypertension Status: Chronic Assessment and Plan: despite history, BP running on the low/soft side BP medications on hold was on midodrine follow trend of hemodynamics (6) Type 2 diabetes mellitus: Qualifiers: Diabetes mellitus termination clerk insulin use: with termination clerk use Diabetes mellitus complication status: with circulatory complication Diabetes mellitus complication detail: with other circulatory complications Qualified Code(s): E11.59 - Type 2 diabetes mellitus with other circulatory complications; Z79.4 - alf (current) use of insulin Code(s): E11.9 - Type 2 diabetes mellitus without complications Status: Chronic Assessment and Plan: follow accu-cheks glycemic control per hospitalists Will continue to follow. Subjective Date/time seen: 11/05/23 11:25 Interval history: Follow-up for chronic kidney disease. Chart reviewed since last seen -- happy NG tube is out; major complaint is that of diarrhea at this time; no other acute issues voiced; no new events overnight or earlier this morning. Exam Narrative: General: elderly male in NAD Heart:IRRR, normal S1 and S2; no rub Lungs: coarse breath sounds and decreased at bases Abdomen: soft, mild distension; + BS Extremities: no cyanosis or clubbing; trace edema Skin: warm and dry Objective Data Vital Signs Vital Signs: Vital Signs Temp Pulse Resp BP Pulse Ox O2 Del Method 11/05/23 11:25 98.1 F 94 20 99/65 L 93 11/05/23 08:00 96 18 93 Room Air 11/05/23 08:00 104 H 11/05/23 08:48 96 11/05/23 08:00 97.6 F 102 H 18 115/65 93 11/05/23 06:37 97.6 F 96 20 92/54 L 99 11/05/23 06:06 106 H 11/05/23 04:00 92 11/05/23 04:00 92 20 93 Room Air 11/05/23 03:12 92 11/05/23 02:00 87 11/05/23 00:00 92 11/05/23 00:00 98 20 93 Room Air 11/05/23 00:02 97.8 F 98 20 96/56 L 93 11/04/23 22:00 82 11/04/23 20:00 86 11/04/23 21:06 100 11/04/23 20:00 82 20 94 Room Air 11/04/23 19:44 97.3 F L 82 20 112/76 94 11/04/23 18:00 89 11/04/23 16:00 97.8 F 76 20 109/71 97 0
[2023-11-05] MEDS: INSULIN ASPART (*BKC) 100 UNITS/ML SUB-Q ×3 (11:49→21:32)
[2023-11-05 12:21] LABS: Glucose Point of Care 274 mg/dl (65-105)
--- NOTE | 2023-11-05 12:25 | WPDGIPROGNO ---
Progress Note: A&P Assessment and Plan (1) Ischemic colitis: Code(s): K55.9 - Vascular disorder of intestine, unspecified Status: Acute Assessment and Plan: kub with ileus but clinically better, on abx because colitis will remove ngt and CL diet, monitor (2) Ileus, unspecified: Code(s): K56.7 - Ileus, unspecified Status: Acute Assessment and Plan: supportive care will try CL diet (3) Acute kidney injury superimposed on CKD: Code(s): N17.9 - Acute kidney failure, unspecified; N18.9 - Chronic kidney disease, unspecified Status: Acute Assessment and Plan: creat stable at 2.7, nephrology on board (4) CHF (congestive heart failure): Qualifiers: Heart failure chronicity: unspecified Heart failure type: unspecified Qualified Code(s): I50.9 - Heart failure, unspecified Code(s): I50.9 - Heart failure, unspecified Status: Acute (5) Atrial fibrillation: Qualifiers: Atrial fibrillation type: paroxysmal Qualified Code(s): I48.0 - Paroxysmal atrial fibrillation Code(s): I48.91 - Unspecified atrial fibrillation Status: Acute Assessment and Plan: by primary Subjective Date/time seen: 11/05/23 12:25 Interval history: he is uncomfortable because NGT still in place and asking to remove if possible + flatus and diarrhea, no emesis. Review of Systems Review of Systems: All systems reviewed & are unremarkable except as noted in HPI and below Exam Const: General: comfortable HENMT: Other: ngt in place Eyes: Sclera: sclerae normal Neck: Neck: supple Resp: Effort & Inspection: normal respiratory effort Cardio: Rhythm: abnormal rhythm irregularly irregular GI: Inspection: distended GI Palp: Yes Soft to palpation, No Tenderness to palpation present (GI) and No Guarding due to palpation present (GI) Other: + BS but hypoactive Skin: General skin exam: normal color Neuro: Speech: normal speech Motor exam (neuro): 5/5 motor strength present throughout Extrem: General: normal to inspection Psych: Mental Status: mental status grossly normal Objective Data Vital Signs Vital Signs: Vital Signs - 24 hr 11/04/23 14:00 11/04/23 16:00 11/04/23 16:00 Temperature Pulse Rate 79 70 Respiratory Rate Blood Pressure Pulse Oximetry 96 Oxygen Delivery Room Air 11/04/23 15:20 11/04/23 16:00 11/04/23 18:00 Temperature 97.8 F Pulse Rate 72 76 89 Respiratory Rate 20 Blood Pressure 109/71 Pulse Oximetry 97 Oxygen Delivery 11/04/23 19:44 11/04/23 20:00 11/04/23 21:06 Temperature 97.3 F L Pulse Rate 82 82 100 Respiratory Rate 20 20 Blood Pressure 112/76 Pulse Oximetry 94 94 Oxygen Delivery Room Air 11/04/23 20:00 11/04/23 22:00 11/05/23 00:02 Temperature 97.8 F Pulse Rate 86 82 98 Respiratory Rate 20 Blood Pressure 96/56 L Pulse Oximetry 93 Oxygen Delivery 11/05/23 00:00 11/05/23 00:00 11/05/23 02:00 Temperature Pulse Rate 98 92 87 Respiratory Rate 20 Blood Pressure Pulse Oximetry 93 Oxygen Delivery Room Air 11/05/23 03:12 11/05/23 04:00 11/05/23 04:00 Temperature Pulse Rate 92 92 92 Respiratory Rate 20 Blood Pressure Pulse Oximetry 93 Oxygen Delivery Room Air 11/05/23 06:06 11/05/23 06:37 11/05/23 08:00 Temperature 97.6 F 97.6 F Pulse Rate 106 H 96 102 H Respiratory Rate 20 18 Blood Pressure 92/54 L 115/65 Pulse Oximetry 99 93 Oxygen Delivery 11/05/23 08:48 11/05/23 08:00 11/05/23 08:00 Temperature Pulse Rate 96 104 H 96 Respiratory Rate 18 Blood Pressure Pulse Oximetry 93 Oxygen Delivery Room Air 11/05/23 11:25 Temperature 98.1 F Pulse Rate 94 Respiratory Rate 20 Blood Pressure 99/65 L Pulse Oximetry 93 Oxygen Delivery Intake/Output Intake/Output: Intake & Output 11/02/23 11/03/23 11/04/23 11/05/23 23:59 23:59 23:59 23:59 Intake T
[2023-11-05] MEDS: WARFARIN (*PBKC) 5 MG TABLET PO (16:33)
[2023-11-05 16:45] LABS: Glucose Point of Care 212 mg/dl (65-105)
[2023-11-05 20:22] LABS: Glucose Point of Care 202 mg/dl (65-105)
[2023-11-05] MEDS: QUEtiapine FUMARATE 12.5 MG TABLET PO (21:05)
[2023-11-05] MEDS: DOXAZOSIN MESYLATE 2 MG TABLET PO (21:05)
[2023-11-05] MEDS: INSULIN GLARGINE (*BKC) 100 UNITS/ML SUB-Q (21:29)
[2023-11-06] VITALS (20 sets, daily range): BP systolic 94–121; BP diastolic 57–83; PULSE 74–103; RESP 18–24; TEMP 36.3–36.8; O2SAT 94–99
[2023-11-06] MEDS: METOPROLOL TARTRATE INJ 5 MG/5 ML VIAL IV PUSH ×4 (03:10→20:09)
[2023-11-06] MEDS: PIPERACILLN/TAZ 3.375GM/NS50ML 3.375 GM/50 ML BAG IVPB ×4 (03:11→20:01)
[2023-11-06 05:31] LABS: INR 2.7; Prothrombin Time 31.1 Seconds (11.1-14.7)
[2023-11-06] MEDS: LEVOTHYROXINE SODIUM INJ 100 MCG/5 ML VIAL 50 MCG IV PUSH (05:36)
[2023-11-06 05:59] LABS: Alanine Aminotransferase 12 U/L (6-50); Albumin Level 2.9 g/dL (3.5-5.1); Alkaline Phosphatase 70 U/L (38-126); Anion Gap 8 mmol/L (8-16); Aspartate Amino Transferase 21 U/L (17-59); Bilirubin,Total 0.5 mg/dL (0.2-1.3); Blood Urea Nitrogen 64 mg/dL (9-20); Carbon Dioxide 29 mmol/L (22-30); Chloride 103 mmol/L (98-107); Estimated CRCL calculation 28 ml/min; Estimated Glomerular Filt Rate 22; Glucose 168 mg/dL (65-110); Potassium 3.3 mmol/L (3.4-5.0); Sodium 140 mmol/L (137-145)
[2023-11-06 09:07] LABS: Glucose Point of Care 167 mg/dl (65-105)
[2023-11-06] MEDS: LIDOCAINE 5% PATCH 1 PATCH TRANSDERM (09:10)
[2023-11-06] MEDS: POTASSIUM CHLORIDE 20 MEQ PACKET (FOR LIQUID) PO (09:10)
[2023-11-06] MEDS: PANTOPRAZOLE SODIUM IV 40 MG VIAL IV PUSH (09:11)
[2023-11-06] MEDS: FLUTICASONE PROPIONATE 0.05% NA SPR 16 GM BTL (*BKC) 1 SPRAY NASAL (09:16)
--- NOTE | 2023-11-06 10:35 | PM.PNNEP ---
Progress Note: A&P Assessment and Plan (1) Chronic kidney disease, stage 4 (severe): Code(s): N18.4 - Chronic kidney disease, stage 4 (severe) Status: Chronic Assessment and Plan: creatinine had been running ~ 2ish [place] in 2021 due to HTN, DM, CHF/cardiomyopathy, vascular disease, EILEEN/pulmonary hypertension, and age-related change recently the creatinine has been higher (3ish rnge) due to higher doses of diuretics needed to maintain volume status on admission his creatinine was as high as 3.7 it has been declining/falling with improvement in GI status +/- IV fluids and holding diuretics off IVFs resume/restart diuretics -- plan tomorrow follow repeat labs and UOP (2) Colitis: Code(s): K52.9 - Noninfective gastroenteritis and colitis, unspecified Status: Acute Assessment and Plan: presented with diarrhea CT scan showing descending colitis C Diff negative on antibiotics colonoscopy showed ischemia GI following (3) Elevated troponin: Code(s): R77.8 - Other specified abnormalities of plasma proteins Status: Acute Assessment and Plan: no symptoms of chest pain Cardiology recommendations noted continue medical management for now (4) Atrial fibrillation: Qualifiers: Atrial fibrillation type: paroxysmal Qualified Code(s): I48.0 - Paroxysmal atrial fibrillation Code(s): I48.91 - Unspecified atrial fibrillation Status: Acute Assessment and Plan: continue rate control strategy on anticoagulation (5) Hypertension: Qualifiers: Hypertension type: primary hypertension Qualified Code(s): I10 - Essential (primary) hypertension Code(s): I10 - Essential (primary) hypertension Status: Chronic Assessment and Plan: despite history, BP running on the low/soft side BP medications on hold was on midodrine follow trend of hemodynamics (6) Type 2 diabetes mellitus: Qualifiers: Diabetes mellitus complication detail: with other circulatory complications Diabetes mellitus complication status: with circulatory complication 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 Subjective Date/time seen: 11/06/23 10:35 Interval history: Follow-up for chronic kidney disease. Tolerating clear liquid diet in the last 24 hours; sitting up in chair in no acute distress; still with diarrhea at times; feels his abdomen is getting distended due to fluid retention; overall, states he does feel better in general. Exam Narrative: General: elderly male in NAD Heart:IRRR, normal S1 and S2; no rub Lungs: coarse breath sounds and decreased at bases Abdomen: soft, mild distension; + BS Extremities: no cyanosis or clubbing; trace edema Skin: warm and intact Objective Data Vital Signs Vital Signs: Vital Signs Temp Pulse Resp BP Pulse Ox O2 Del Method 11/06/23 10:00 74 11/06/23 08:00 77 24 H 95 Room Air 11/06/23 08:00 77 11/06/23 09:11 103 H 11/06/23 07:46 97.4 F L 84 24 H 119/78 95 11/06/23 06:08 88 11/06/23 04:00 75 11/06/23 04:35 97.6 F 80 18 102/83 94 11/06/23 04:00 89 18 95 Room Air 11/06/23 02:00 83 11/06/23 03:10 89 11/06/23 00:00 87 95 Room Air 11/06/23 00:00 79 11/05/23 22:00 86 11/05/23 20:00 87 11/05/23 23:21 97.7 F 94 18 106/63 91 11/05/23 20:00 88 18 96 Room Air 11/05/23 21:06 88 11/05/23 20:14 97.2 F L 82 18 108/53 L 96 11/05/23 18:00 97 11/05/23 15:00 104 H
--- NOTE | 2023-11-06 10:35 | P.PNNP_ITS ---
Progress Note: A&P Assessment and Plan (1) Chronic kidney disease, stage 4 (severe): Code(s): N18.4 - Chronic kidney disease, stage 4 (severe) Status: Chronic Assessment and Plan: * creatinine had been running ~ 2ish [place] in 2021 * due to HTN, DM, CHF/cardiomyopathy, vascular disease, EILEEN/pulmonary hypertension, and age-related change * recently the creatinine has been higher (3ish rnge) due to higher doses of diuretics needed to maintain volume status * on admission his creatinine was as high as 3.7 * it has been declining/falling with improvement in GI status +/- IV fluids and holding diuretics * off IVFs * resume/restart diuretics -- plan tomorrow * follow repeat labs and UOP (2) Colitis: Code(s): K52.9 - Noninfective gastroenteritis and colitis, unspecified Status: Acute Assessment and Plan: * presented with diarrhea * CT scan showing descending colitis * C Diff negative * on antibiotics * colonoscopy showed ischemia * GI following (3) Elevated troponin: Code(s): R77.8 - Other specified abnormalities of plasma proteins Status: Acute Assessment and Plan: * no symptoms of chest pain * Cardiology recommendations noted * continue medical management for now (4) Atrial fibrillation: Qualifiers: Atrial fibrillation type: paroxysmal Qualified Code(s): I48.0 - Paroxysmal atrial fibrillation Code(s): I48.91 - Unspecified atrial fibrillation Status: Acute Assessment and Plan: * continue rate control strategy * on anticoagulation (5) Hypertension: Qualifiers: Hypertension type: primary hypertension Qualified Code(s): I10 - Essential (primary) hypertension Code(s): I10 - Essential (primary) hypertension Status: Chronic Assessment and Plan: * despite history, BP running on the low/soft side * BP medications on hold * was on midodrine * follow trend of hemodynamics (6) Type 2 diabetes mellitus: Qualifiers: Diabetes mellitus complication detail: with other circulatory c omplications Diabetes mellitus complication status: with circulatory compl ication Diabetes mellitus long chain quiller tender insulin use: with long chain quiller tender use Qualified Code(s): E11.59 - Type 2 diabetes mellitus with other circulatory complications; Z79.4 - senior living (current) use of insulin Code(s): E11.9 - Type 2 diabetes mellitus without complications Status: Chronic Assessment and Plan: * follow accu-cheks * glycemic control per hospitalists Will continue to follow. Subjective Date/time seen: 11/06/23 10:35 Interval history: Follow-up for chronic kidney disease. Tolerating clear liquid diet in the last 24 hours; sitting up in chair in no acute distress; still with diarrhea at times; feels his abdomen is getting distended due to fluid retention; overall, states he does feel better in general. Exam Narrative: General: elderly male in NAD Heart:IRRR, normal S1 and S2; no rub Lungs: coarse breath sounds and decreased at bases Abdomen: soft, mild distension; + BS Extremities: no cyanosis or clubbing; trace edema Skin: warm and intact Objective Data Vital Signs Vital Signs: Vital Signs Temp Pulse Resp BP Pulse Ox O2 Del Method 11/06/23 10:00 74 11/06/23 08:00 77 24 H 95 Room Air 11/06/23 0
[2023-11-06 11:51] LABS: Glucose Point of Care 214 mg/dl (65-105)
[2023-11-06] MEDS: INSULIN ASPART (*BKC) 100 UNITS/ML SUB-Q (12:00)
--- NOTE | 2023-11-06 14:52 | WPDGIPROGNO ---
Progress Note: A&P Assessment and Plan (1) Ischemic colitis: Code(s): K55.9 - Vascular disorder of intestine, unspecified Status: Acute Assessment and Plan: ngt removed tolerating diet, advance slowly on antibiotics (2) Ileus, unspecified: Code(s): K56.7 - Ileus, unspecified Status: Acute Assessment and Plan: supportive care clinically better (3) Acute kidney injury superimposed on CKD: Code(s): N17.9 - Acute kidney failure, unspecified; N18.9 - Chronic kidney disease, unspecified Status: Acute Assessment and Plan: creat stable, nephrology on board (4) CHF (congestive heart failure): Qualifiers: Heart failure chronicity: unspecified Heart failure type: unspecified Qualified Code(s): I50.9 - Heart failure, unspecified Code(s): I50.9 - Heart failure, unspecified Status: Acute (5) Atrial fibrillation: Qualifiers: Atrial fibrillation type: paroxysmal Qualified Code(s): I48.0 - Paroxysmal atrial fibrillation Code(s): I48.91 - Unspecified atrial fibrillation Status: Acute Assessment and Plan: by primary, back on coumadin Subjective Date/time seen: 11/06/23 14:52 Interval history: still with diarrhea, some nausea but tolerated liquid diet and he would like to eat more consistent meals Review of Systems Review of Systems: All systems reviewed & are unremarkable except as noted in HPI and below Exam Const: General: comfortable HENMT: Face/Nose/Sinus: Normal nares present Eyes: Sclera: sclerae normal Neck: Neck: supple Resp: Effort & Inspection: normal respiratory effort Cardio: Rhythm: abnormal rhythm irregularly irregular GI: Inspection: distended GI Palp: Yes Soft to palpation, No Tenderness to palpation present (GI) and No Guarding due to palpation present (GI) Other: + BS but hypoactive Skin: General skin exam: normal color Neuro: Speech: normal speech Motor exam (neuro): 5/5 motor strength present throughout Extrem: General: normal to inspection Psych: Mental Status: mental status grossly normal Objective Data Vital Signs Vital Signs: Vital Signs - 24 hr 11/05/23 15:53 11/05/23 16:00 11/05/23 16:00 Temperature 98.3 F Pulse Rate 88 81 88 Respiratory Rate 18 18 Blood Pressure 110/53 L Pulse Oximetry 99 99 Oxygen Delivery Room Air 11/05/23 15:00 11/05/23 18:00 11/05/23 20:14 Temperature 97.2 F L Pulse Rate 104 H 97 82 Respiratory Rate 18 Blood Pressure 108/53 L Pulse Oximetry 96 Oxygen Delivery 11/05/23 21:06 11/05/23 20:00 11/05/23 23:21 Temperature 97.7 F Pulse Rate 88 88 94 Respiratory Rate 18 18 Blood Pressure 106/63 Pulse Oximetry 96 91 Oxygen Delivery Room Air 11/05/23 20:00 11/05/23 22:00 11/06/23 00:00 Temperature Pulse Rate 87 86 79 Respiratory Rate Blood Pressure Pulse Oximetry Oxygen Delivery 11/06/23 00:00 11/06/23 03:10 11/06/23 02:00 Temperature Pulse Rate 87 89 83 Respiratory Rate Blood Pressure Pulse Oximetry 95 Oxygen Delivery Room Air 11/06/23 04:00 11/06/23 04:35 11/06/23 04:00 Temperature 97.6 F Pulse Rate 89 80 75 Respiratory Rate 18 18 Blood Pressure 102/83 Pulse Oximetry 95 94 Oxygen Delivery Room Air 11/06/23 06:08 11/06/23 07:46 11/06/23 09:11 Temperature 97.4 F L Pulse Rate 88 84 103 H Respiratory Rate 24 H Blood Pressure 119/78 Pulse Oximetry 95 Oxygen Delivery 11/06/23 08:00 11/06/23 08:00 11/06/23 10:00 Temperature Pulse Rate 77 77 74 Respiratory Rate 24 H Blood Pressure Pulse Oximetry 95 Oxygen Delivery Room Air 11/06/23 11:56 11/06/23 12:00 11/06/23 12:00 Temperature 98.3 F Pulse Rate 81 84 84 Respiratory Rate 20 20 Blood Pressure 103/79 Pulse Oximetry 99 99 Oxygen Delivery Room Air Intake/Output Intake/Output: Intake & Output 11/03/23 11/04/23 11/05/23
[2023-11-06 16:28] LABS: Glucose Point of Care 171 mg/dl (65-105)
[2023-11-06] MEDS: WARFARIN (*PBKC) 5 MG TABLET PO (16:35)
--- NOTE | 2023-11-06 19:00 | PM.IMPN ---
Progress Note: A&P Assessment and Plan (1) Epigastric pain: Code(s): R10.13 - Epigastric pain Status: Acute Assessment and Plan: Palpable pain. Probably gastritis or related to his colitis. Add mylanta. Change Protonix to IV. Monitor HH closely. S/p ileus, ngt removed, monitor 11/06: ADAT (2) Atrial fibrillation: Qualifiers: Atrial fibrillation type: paroxysmal Qualified Code(s): I48.0 - Paroxysmal atrial fibrillation Code(s): I48.91 - Unspecified atrial fibrillation Status: Acute Assessment and Plan: Patient with AFib with presumably rate related BBB on tele. 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 Possibly inferior AMI so discussed with Cardiology who felt more likely rate related BBB. Previous EKGs reviewed. Consider runs of NSVT. He is off his Imdur due to soft BP. Flattened troponins. 11/05: restart coumadin today, monitor INR (3) Colitis: Code(s): K52.9 - Noninfective gastroenteritis and colitis, unspecified Status: Acute Assessment and Plan: patient presents with diarrhea. CT scan showing descending colitis. CDiff negative. Other stool studies pending. Continue with ceftriaxone and Flagyl, 11/01: abx switched to zosyn, 11/02: colonoscopy yest showed ischemic colitis w/ diverticulosis no perf/abscess (4) Acute kidney injury superimposed on CKD: Code(s): N17.9 - Acute kidney failure, unspecified; N18.9 - Chronic kidney disease, unspecified Status: Acute Assessment and Plan: Cr 2.4-2.9 in August. Cr 3.5 on admission. Probably related to dehydration from Bumex and recent GI symptoms. Ultrasound showing normal right kidney but left not visualized. Bumex on hold Avoid nephrotoxins Follow UOP, electrolytes and renal function Improving (5) CHF (congestive heart failure): Qualifiers: Heart failure chronicity: unspecified Heart failure type: unspecified Qualified Code(s): I50.9 - Heart failure, unspecified Code(s): I50.9 - Heart failure, unspecified Status: Acute Assessment and Plan: Echo showing EF 20-25% with diastolic dysfunction grade I. Bumex on hold as mentioned above Low-dose midodrine added for blood pressure Continue with Plavix metoprolol, losartan, Hydralazine and Imdur on hold. home bumex still no hold, IVF while on ngt, consider restarting bumex soon (6) Coronary artery disease: Code(s): I25.10 - Atherosclerotic heart disease of [place] coronary artery without angina pectoris Status: Chronic Assessment and Plan: Hx of coronary stenting x10 in [facility]. No ischemic evaluation performed here. Continue Plavix. Add ASA. 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 Continue AccuCheks covering with sliding scale. Hypoglycemia protocol available as needed. Continue to monitor. (8) Osteoarthritis of right hip: Qualifiers: Osteoarthritis type: primary Qualified Code(s): M16.11 - Unilateral primary osteoarthritis, right hip Code(s): M16.11 - Unilateral primary osteoarthritis, right hip Status: Acute Assessment and Plan: Right hip x-ray negative for any acute etiology/pathology CT showing moderate right hip OA Continue with Lidoderm patch but stop narcotics since affecting his BP and may be contributing to this nausea 11/02: Orthopedic surgery consult no
[2023-11-06] MEDS: DOXAZOSIN MESYLATE 2 MG TABLET PO (20:05)
[2023-11-06] MEDS: QUEtiapine FUMARATE 12.5 MG TABLET PO (20:05)
[2023-11-06] MEDS: LORazepam INJ (*CRX) 2 MG/ML VIAL 1 MG IV PUSH (20:05)
[2023-11-06] MEDS: PROMETHAZINE HCL 25 MG/ML AMPUL IM (20:05)
[2023-11-06] MEDS: INSULIN GLARGINE (*BKC) 100 UNITS/ML SUB-Q (20:12)
[2023-11-06 20:22] LABS: Glucose Point of Care 182 mg/dl (65-105)
[2023-11-07] VITALS (20 sets, daily range): BP systolic 104–123; BP diastolic 61–77; PULSE 80–115; RESP 18–22; TEMP 36.4–37; O2SAT 93–99
[2023-11-07] MEDS: MORPHINE SULFATE (*CRX) 2 MG/ML INJ IV PUSH (03:00)
[2023-11-07] MEDS: METOPROLOL TARTRATE INJ 5 MG/5 ML VIAL IV PUSH ×3 (04:21→15:44)
[2023-11-07] MEDS: PROMETHAZINE HCL 25 MG/ML AMPUL IM (04:21)
[2023-11-07] MEDS: PIPERACILLN/TAZ 3.375GM/NS50ML 3.375 GM/50 ML BAG IVPB ×4 (04:21→20:41)
[2023-11-07 04:49] LABS: Basophils Absolute Auto 0.1 K/mm3 (0.0-0.1); Basophils Percent Auto 0.6 % (0.2-1.2); Eosinophils Absolute Auto 0.4 K/mm3 (0-0.3); Eosinophils Percent Auto 3.1 % (0-4.4); Hematocrit 32.5 % (42.0-52.0); Hemoglobin 9.8 g/dL (14.0-18.0); Immature Granulocyte Absolute 0.09 K/mm3 (0.00-0.031); Immature Granulocyte Percent A 0.7 % (0-0.5); Lymphocytes Absolute Auto 1.21 K/mm3 (0.9-3.2); Lymphocytes Percent Auto 9.5 % (18.3-44.2); Mean Corpuscular HGB Conc 30.2 g/dl (32-36); Mean Corpuscular Hemoglobin 30.3 pg (26-34); Mean Corpuscular Volume 100.6 fl (80-100); Mean Platelet Volume 10.8 fl (7.4-10.4); Monocytes Absolute Auto 0.5 K/mm3 (0.1-0.6); Monocytes Percent Auto 4.3 % (2.6-8.5); Neutrophils Absolute Auto 10.4 K/mm3 (1.3-6.7); Neutrophils Percent Auto 81.8 % (45.5-73.1); Platelet Count Result 275 k/mm3 (150-375); Red Blood Count 3.23 M/mm3 (4.6-6.20); Red Cell Distribution Width 16.5 % (11.5-14.5); White Blood Count 12.7 K/mm3 (4.5-10.0)
[2023-11-07 04:58] LABS: Alanine Aminotransferase 12 U/L (6-50); Albumin Level 2.9 g/dL (3.5-5.1); Alkaline Phosphatase 74 U/L (38-126); Anion Gap 9 mmol/L (8-16); Aspartate Amino Transferase 22 U/L (17-59); Bilirubin,Total 0.5 mg/dL (0.2-1.3); Blood Urea Nitrogen 62 mg/dL (9-20); Carbon Dioxide 27 mmol/L (22-30); Chloride 104 mmol/L (98-107); Estimated CRCL calculation 25 ml/min; Estimated Glomerular Filt Rate 20; Glucose 165 mg/dL (65-110); Potassium 3.3 mmol/L (3.4-5.0); Sodium 140 mmol/L (137-145)
[2023-11-07 05:03] LABS: INR 3.1
[2023-11-07] MEDS: LEVOTHYROXINE SODIUM INJ 100 MCG/5 ML VIAL 50 MCG IV PUSH (06:45)
[2023-11-07 08:15] LABS: Glucose Point of Care 152 mg/dl (65-105)
[2023-11-07] MEDS: LIDOCAINE 5% PATCH 1 PATCH TRANSDERM (08:41)
[2023-11-07] MEDS: PANTOPRAZOLE SODIUM IV 40 MG VIAL IV PUSH (08:41)
[2023-11-07] MEDS: FLUTICASONE PROPIONATE 0.05% NA SPR 16 GM BTL (*BKC) 1 SPRAY NASAL (08:42)
[2023-11-07] MEDS: BUMETANIDE 1 MG TABLET 2 MG PO (10:08)
--- NOTE | 2023-11-07 11:03 | PCSTNOTE ---
Please refer to the Bedside Swallow Evaluation in the EMR. Please note, silent aspiration cannot be ruled out at bedside.
[2023-11-07 12:24] LABS: Glucose Point of Care 205 mg/dl (65-105)
[2023-11-07] MEDS: INSULIN ASPART (*BKC) 100 UNITS/ML SUB-Q (12:31)
--- NOTE | 2023-11-07 13:10 | PM.PNNEP ---
Progress Note: A&P Assessment and Plan (1) Chronic kidney disease, stage 4 (severe): Code(s): N18.4 - Chronic kidney disease, stage 4 (severe) Status: Chronic Assessment and Plan: creatinine had been running ~ 2ish [place] in 2021 due to HTN, DM, CHF/cardiomyopathy, vascular disease, EILEEN/pulmonary hypertension, and age-related change recently the creatinine has been higher (3ish rnge) due to higher doses of diuretics needed to maintain volume status on admission his creatinine was as high as 3.7 it has been declining/falling with improvement in GI status +/- IV fluids and holding diuretics off IVFs resume/restart diuretics today (although will have to see how his renal function responds) follow repeat labs and UOP (2) Colitis: Code(s): K52.9 - Noninfective gastroenteritis and colitis, unspecified Status: Acute Assessment and Plan: presented with diarrhea CT scan showing descending colitis C Diff negative on antibiotics colonoscopy showed ischemia GI following (3) Elevated troponin: Code(s): R77.8 - Other specified abnormalities of plasma proteins Status: Acute Assessment and Plan: no symptoms of chest pain Cardiology recommendations noted continue medical management for now (4) Atrial fibrillation: Qualifiers: Atrial fibrillation type: paroxysmal Qualified Code(s): I48.0 - Paroxysmal atrial fibrillation Code(s): I48.91 - Unspecified atrial fibrillation Status: Acute Assessment and Plan: continue rate control strategy on anticoagulation (5) Hypertension: Qualifiers: Hypertension type: primary hypertension Qualified Code(s): I10 - Essential (primary) hypertension Code(s): I10 - Essential (primary) hypertension Status: Chronic Assessment and Plan: despite history, BP running on the low/soft side BP medications on hold was on midodrine follow trend of hemodynamics (6) Type 2 diabetes mellitus: Qualifiers: Diabetes mellitus complication detail: with other circulatory complications Diabetes mellitus complication status: with circulatory complication 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 Subjective Date/time seen: 11/07/23 13:10 Interval history: Follow-up for chronic kidney disease. Still with diarrhea following oral intake but more so with food with substance rather than liquids; feels as he is retaining fluid as well; otherwise, no other acute issues or events overnight or earlier this AM. Exam Narrative: General: elderly male in NAD Heart:IRRR, normal S1 and S2; no rub Lungs: coarse breath sounds and decreased at bases Abdomen: soft, mild distension; + BS Extremities: no cyanosis or clubbing; 1+ edema Skin: no rash Objective Data Vital Signs Vital Signs: Vital Signs Temp Pulse Resp BP Pulse Ox O2 Del Method 11/07/23 12:00 103 H 11/07/23 11:28 98.6 F 86 22 H 111/65 94 11/07/23 08:41 88 11/07/23 07:38 98 F 97 20 114/61 95 11/07/23 05:45 88 11/07/23 04:00 96 11/07/23 04:00 Room Air 11/07/23 04:21 88 11/07/23 04:00 97.6 F 115 H 18 123/77 95 11/07/23 02:00 105 H 11/07/23 00:00 107 H 11/06/23 23:52 97.8 F 97 20 101/62 96 11/06/23 22:00 89 11/06/23 20:00 77 11/06/23 20:00 98.0 F 86 20 121/57 L 95 11/06/23 20:09 80 11/06/23 17:49 82 Intake/Output Intake/Output: Intake & Output 11/04/23 11/05/23 11/06/23 11/07/23 23:59 23:59 23:59 23:59 Int
--- NOTE | 2023-11-07 13:10 | P.PNNP_ITS ---
Progress Note: A&P Assessment and Plan (1) Chronic kidney disease, stage 4 (severe): Code(s): N18.4 - Chronic kidney disease, stage 4 (severe) Status: Chronic Assessment and Plan: * creatinine had been running ~ 2ish [place] in 2021 * due to HTN, DM, CHF/cardiomyopathy, vascular disease, EILEEN/pulmonary hypertension, and age-related change * recently the creatinine has been higher (3ish rnge) due to higher doses of diuretics needed to maintain volume status * on admission his creatinine was as high as 3.7 * it has been declining/falling with improvement in GI status +/- IV fluids and holding diuretics * off IVFs * resume/restart diuretics today (although will have to see how his renal function responds) * follow repeat labs and UOP (2) Colitis: Code(s): K52.9 - Noninfective gastroenteritis and colitis, unspecified Status: Acute Assessment and Plan: * presented with diarrhea * CT scan showing descending colitis * C Diff negative * on antibiotics * colonoscopy showed ischemia * GI following (3) Elevated troponin: Code(s): R77.8 - Other specified abnormalities of plasma proteins Status: Acute Assessment and Plan: * no symptoms of chest pain * Cardiology recommendations noted * continue medical management for now (4) Atrial fibrillation: Qualifiers: Atrial fibrillation type: paroxysmal Qualified Code(s): I48.0 - Paroxysmal atrial fibrillation Code(s): I48.91 - Unspecified atrial fibrillation Status: Acute Assessment and Plan: * continue rate control strategy * on anticoagulation (5) Hypertension: Qualifiers: Hypertension type: primary hypertension Qualified Code(s): I10 - Essential (primary) hypertension Code(s): I10 - Essential (primary) hypertension Status: Chronic Assessment and Plan: * despite history, BP running on the low/soft side * BP medications on hold * was on midodrine * follow trend of hemodynamics (6) Type 2 diabetes mellitus: Qualifiers: Diabetes mellitus complication detail: with other circulatory complications Diabetes mellitus complication status: with circulatory complication Diabetes mellitus parts counterman insulin use: with care home use Qualified Code(s): E11.59 - Type 2 diabetes mellitus with other circulatory complications; Z79.4 - adjunct faculty for medical terminology (current) use of insulin Code(s): E11.9 - Type 2 diabetes mellitus without complications Status: Chronic Assessment and Plan: * follow accu-cheks * glycemic control per hospitalists Will continue to follow. Subjective Date/time seen: 11/07/23 13:10 Interval history: Follow-up for chronic kidney disease. Still with diarrhea following oral intake but more so with food with substance rather than liquids; feels as he is retaining fluid as well; otherwise, no other acute issues or events overnight or earlier this AM. Exam Narrative: General: elderly male in NAD Heart:IRRR, normal S1 and S2; no rub Lungs: coarse breath sounds and decreased at bases Abdomen: soft, mild distension; + BS Extremities: no cyanosis or clubbing; 1+ edema Skin: no rash Objective Data Vital Signs Vital Signs: Vital Signs Temp Pulse Resp BP Pulse Ox O2 Del Method 11/07/23 12:00 103 H 11/07/23 11:28 98.6 F 86 22 H 111/65 9
--- NOTE | 2023-11-07 13:32 | PCSTNOTE ---
Please refer to the Modified Barium Swallow Evaluation in the EMR.
--- NOTE | 2023-11-07 13:48 | PM.IMPN ---
Progress Note: A&P Assessment and Plan (1) Epigastric pain: Code(s): R10.13 - Epigastric pain Status: Acute Assessment and Plan: Palpable pain. Probably gastritis or related to his colitis. Add mylanta. Change Protonix to IV. Monitor HH closely. S/p ileus, ngt removed, monitor Diet advanced. ST recommended MBS which was done. Thickened liquids added. (2) Atrial fibrillation: Qualifiers: Atrial fibrillation type: paroxysmal Qualified Code(s): I48.0 - Paroxysmal atrial fibrillation Code(s): I48.91 - Unspecified atrial fibrillation Status: Acute Assessment and Plan: Patient with AFib with presumably rate related BBB on tele. 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 Possibly inferior AMI so discussed with Cardiology who felt more likely rate related BBB. Previous EKGs reviewed. Consider runs of NSVT. He is off his Imdur due to soft BP. Flat troponins. Coumadin resumed. Continue daily INR monitoring (3) Colitis: Code(s): K52.9 - Noninfective gastroenteritis and colitis, unspecified Status: Acute Assessment and Plan: patient presents with diarrhea. CT scan showing descending colitis. CDiff negative. Other stool studies negative Was on ceftriaxone and Flagyl, 11/01; Abx switched to Zosyn, 11/01 Colonoscopy 11/02 showed ischemic colitis w/ diverticulosis Remains on Zosyn Day 7 (4) Acute kidney injury superimposed on CKD: Code(s): N17.9 - Acute kidney failure, unspecified; N18.9 - Chronic kidney disease, unspecified Status: Acute Assessment and Plan: Cr 2.4-2.9 in August. Cr 3.5 on admission. Probably related to dehydration from Bumex and recent GI symptoms. Ultrasound showing normal right kidney but left not visualized. Bumex was held Avoid nephrotoxins Appreciate Nephrology input Follow UOP, electrolytes and renal function (5) CHF (congestive heart failure): Qualifiers: Heart failure chronicity: unspecified Heart failure type: unspecified Qualified Code(s): I50.9 - Heart failure, unspecified Code(s): I50.9 - Heart failure, unspecified Status: Acute Assessment and Plan: Echo showing EF 20-25% with diastolic dysfunction grade I. Bumex was on hold as mentioned above Low-dose midodrine added for blood pressure Plavix, metoprolol, losartan, Hydralazine and Imdur on hold. Bumex resumed today. Add back home meds as tolerated (6) Coronary artery disease: Code(s): I25.10 - Atherosclerotic heart disease of [place] coronary artery without angina pectoris Status: Chronic Assessment and Plan: Hx of coronary stenting x10 in [facility]. No ischemic evaluation performed here. Resume Plavix (7) Type 2 diabetes mellitus: Qualifiers: Diabetes mellitus complication detail: with other circulatory complications Diabetes mellitus complication status: with circulatory complication Diabetes mellitus intermodal dispatcher insulin use: with intermodal dispatcher use Qualified Code(s): E11.59 - Type 2 diabetes mellitus with other circulatory complications; Z79.4 - termite technician (current) use of insulin Code(s): E11.9 - Type 2 diabetes mellitus without complications Status: Chronic Assessment and Plan: The patient's blood glucose was reviewed on 11/07 Glucose remains reasonably well controlled. Continue AccuCheks covering with sliding scale. Hypoglycemia protocol available as needed. Continue to monitor. (8) Osteoarthritis of right hip: Qualifiers: Osteoarthritis type: primary Qualified Code(s): M16.11 - Unilateral primary osteoarthritis, right hip Code(s): M16.11 - Unilateral primary osteoarthritis, right hip Status: Acute Assessment and Plan: Right hip x-ray negative for any acute etiology/pathology CT showing moderate right hip OA Continue with Lidoderm patch but narcotics stopped since affecting his BP and may be contribu
--- NOTE | 2023-11-07 14:26 | WPDGIPROGNO ---
Progress Note: A&P Assessment and Plan (1) Ischemic colitis: Code(s): K55.9 - Vascular disorder of intestine, unspecified Status: Acute Assessment and Plan: ngt removed 2 days ago tolerating diet, advance slowly- still some nausea added ppi on antibiotics for colitis (2) Ileus, unspecified: Code(s): K56.7 - Ileus, unspecified Status: Acute Assessment and Plan: clinically better he is having diarrhea (3) Acute kidney injury superimposed on CKD: Code(s): N17.9 - Acute kidney failure, unspecified; N18.9 - Chronic kidney disease, unspecified Status: Acute Assessment and Plan: nephrology on board (4) CHF (congestive heart failure): Qualifiers: Heart failure chronicity: unspecified Heart failure type: unspecified Qualified Code(s): I50.9 - Heart failure, unspecified Code(s): I50.9 - Heart failure, unspecified Status: Acute (5) Atrial fibrillation: Qualifiers: Atrial fibrillation type: paroxysmal Qualified Code(s): I48.0 - Paroxysmal atrial fibrillation Code(s): I48.91 - Unspecified atrial fibrillation Status: Acute Assessment and Plan: by primary, back on coumadin Subjective Date/time seen: 11/07/23 14:26 Interval history: still with diarrhea, he is eating but some nausea, no abdominal pain sometimes hard time after drinking water but no much with solids Review of Systems Review of Systems: All systems reviewed & are unremarkable except as noted in HPI and below Exam Const: General: comfortable HENMT: Face/Nose/Sinus: Normal nares present Eyes: Sclera: sclerae normal Neck: Neck: supple Resp: Effort & Inspection: normal respiratory effort Cardio: Rhythm: abnormal rhythm irregularly irregular GI: Inspection: distended GI Palp: Yes Soft to palpation, No Tenderness to palpation present (GI) and No Guarding due to palpation present (GI) Skin: General skin exam: normal color Neuro: Speech: normal speech Motor exam (neuro): 5/5 motor strength present throughout Extrem: General: normal to inspection Psych: Mental Status: mental status grossly normal Objective Data Vital Signs Vital Signs: Vital Signs - 24 hr 11/06/23 15:13 11/06/23 16:35 11/06/23 16:00 Temperature 97.4 F L Pulse Rate 82 82 77 Respiratory Rate 20 Blood Pressure 94/57 L Pulse Oximetry 98 Oxygen Delivery 11/06/23 16:00 11/06/23 17:49 11/06/23 20:09 Temperature Pulse Rate 77 82 80 Respiratory Rate 20 Blood Pressure Pulse Oximetry 98 Oxygen Delivery Room Air 11/06/23 20:00 11/06/23 20:00 11/06/23 22:00 Temperature 98.0 F Pulse Rate 86 77 89 Respiratory Rate 20 Blood Pressure 121/57 L Pulse Oximetry 95 Oxygen Delivery 11/06/23 23:52 11/07/23 00:00 11/07/23 02:00 Temperature 97.8 F Pulse Rate 97 107 H 105 H Respiratory Rate 20 Blood Pressure 101/62 Pulse Oximetry 96 Oxygen Delivery 11/07/23 04:00 11/07/23 04:21 11/07/23 04:00 Temperature 97.6 F Pulse Rate 115 H 88 Respiratory Rate 18 Blood Pressure 123/77 Pulse Oximetry 95 Oxygen Delivery Room Air 11/07/23 04:00 11/07/23 05:45 11/07/23 07:38 Temperature 98 F Pulse Rate 96 88 97 Respiratory Rate 20 Blood Pressure 114/61 Pulse Oximetry 95 Oxygen Delivery 11/07/23 08:41 11/07/23 11:28 11/07/23 08:00 Temperature 98.6 F Pulse Rate 88 86 110 H Respiratory Rate 22 H Blood Pressure 111/65 Pulse Oximetry 94 Oxygen Delivery 11/07/23 10:00 Temperature Pulse Rate 83 Respiratory Rate Blood Pressure Pulse Oximetry Oxygen Delivery Intake/Output Intake/Output: Intake & Output 11/04/23 11/05/23 11/06/23 11/07/23 23:59 23:59 23:59 23:59 Intake Total 2885 3150 2820 2080 Output Total 1320 201 700 503 Balance 1561 9382 2122 1577 Meds/Results Medications: Active Medications Generic Name Dose Route Start Last Admin Trad
[2023-11-07 16:57] LABS: Glucose Point of Care 198 mg/dl (65-105)
[2023-11-07] MEDS: WARFARIN (*PBKC) 5 MG TABLET PO (17:18)
[2023-11-07 20:26] LABS: Glucose Point of Care 169 mg/dl (65-105)
[2023-11-07] MEDS: HYDROcodone/acetaminophen (*CRX) 5-325 MG TABLET 1 TAB PO (20:40)
[2023-11-07] MEDS: METOPROLOL TARTRATE 12.5 MG TABLET PO (20:41)
[2023-11-07] MEDS: QUEtiapine FUMARATE 12.5 MG TABLET PO (20:41)
[2023-11-07] MEDS: DOXAZOSIN MESYLATE 2 MG TABLET PO (20:41)
[2023-11-07] MEDS: INSULIN GLARGINE (*BKC) 100 UNITS/ML SUB-Q (20:42)
[2023-11-08] VITALS (16 sets, daily range): BP systolic 90–110; BP diastolic 58–72; PULSE 65–94; RESP 16–22; TEMP 36.2–36.4; O2SAT 92–97
[2023-11-08] MEDS: PIPERACILLN/TAZ 3.375GM/NS50ML 3.375 GM/50 ML BAG IVPB ×4 (03:27→20:43)
[2023-11-08] MEDS: HYDROcodone/acetaminophen (*CRX) 5-325 MG TABLET 1 TAB PO (03:30)
[2023-11-08 04:59] LABS: Basophils Absolute Auto 0.1 K/mm3 (0.0-0.1); Basophils Percent Auto 0.6 % (0.2-1.2); Eosinophils Absolute Auto 0.4 K/mm3 (0-0.3); Eosinophils Percent Auto 3.2 % (0-4.4); Hemoglobin 9.5 g/dL (14.0-18.0); Immature Granulocyte Absolute 0.06 K/mm3 (0.00-0.031); Immature Granulocyte Percent A 0.5 % (0-0.5); Lymphocytes Absolute Auto 1.19 K/mm3 (0.9-3.2); Lymphocytes Percent Auto 10.9 % (18.3-44.2); Mean Corpuscular HGB Conc 29.7 g/dl (32-36); Mean Corpuscular Hemoglobin 30.4 pg (26-34); Mean Corpuscular Volume 102.6 fl (80-100); Mean Platelet Volume 10.7 fl (7.4-10.4); Monocytes Absolute Auto 0.5 K/mm3 (0.1-0.6); Monocytes Percent Auto 4.6 % (2.6-8.5); Neutrophils Absolute Auto 8.8 K/mm3 (1.3-6.7); Neutrophils Percent Auto 80.2 % (45.5-73.1); Platelet Count Result 254 k/mm3 (150-375); Red Blood Count 3.12 M/mm3 (4.6-6.20); Red Cell Distribution Width 16.7 % (11.5-14.5); White Blood Count 10.9 K/mm3 (4.5-10.0)
[2023-11-08 05:07] LABS: Alanine Aminotransferase 11 U/L (6-50); Albumin Level 2.9 g/dL (3.5-5.1); Alkaline Phosphatase 69 U/L (38-126); Anion Gap 10 mmol/L (8-16); Aspartate Amino Transferase 19 U/L (17-59); Bilirubin,Total 0.5 mg/dL (0.2-1.3); Blood Urea Nitrogen 63 mg/dL (9-20); Calcium 7.9 mg/dL (8.4-10.2); Carbon Dioxide 28 mmol/L (22-30); Chloride 102 mmol/L (98-107); Estimated CRCL calculation 21 ml/min; Estimated Glomerular Filt Rate 16; Glucose 163 mg/dL (65-110); Potassium 3.3 mmol/L (3.4-5.0); Sodium 140 mmol/L (137-145)
[2023-11-08 05:19] LABS: Prothrombin Time 33.8 Seconds (11.1-14.7)
[2023-11-08 05:23] LABS: Anisocytosis 1+ (NORMAL); Platelet Estimate Adequate (Adequate)
[2023-11-08 05:24] LABS: Ovalocytes 1+ (NORMAL); Schistocytes Rare (NORMAL)
[2023-11-08] MEDS: LEVOTHYROXINE SODIUM 100 MCG TABLET PO (06:40)
[2023-11-08 08:28] LABS: Glucose Point of Care 166 mg/dl (65-105)
--- NOTE | 2023-11-08 09:36 | PCPTNOTE ---
Attempted to see patient for PT, however per RN asked if PT can come back later due to patient sleeping and wanting to let patient rest.
[2023-11-08] MEDS: CLOPIDOGREL BISULFATE 75 MG TABLET PO (09:39)
[2023-11-08] MEDS: METOPROLOL SUCCINATE EXT REL 25 MG TABCR PO (09:41)
[2023-11-08] MEDS: allopurinoL 100 MG TABLET PO (09:41)
[2023-11-08] MEDS: ACETAMINOPHEN 325 MG TABLET 650 MG PO ×2 (09:42→21:27)
[2023-11-08] MEDS: AMIODARONE HCL 200 MG TABLET PO (09:42)
[2023-11-08] MEDS: LIDOCAINE 5% PATCH 1 PATCH TRANSDERM (09:44)
[2023-11-08] MEDS: PANTOPRAZOLE SODIUM IV 40 MG VIAL IV PUSH (09:51)
--- NOTE | 2023-11-08 10:19 | PCNFU ---
Nutrition Follow-Up Complete: Inadequate energy intake related to diet order as evidenced by clear liquid status Goal:Advance diet as tolerated Pt current nutrition is Low fiber, level 2 mildly thickened liquids. Nutrition recommendation: Add Ensure compact BID for an additional 220kcals, 9g protein per shake Last recorded weight is 131.9 kg. Bowel Motility: +BM 11/08 Labs Reviewed: Hgb:9.5, HCT:38, Alb:2.9, K:3.3, BUN:63, Cr:3.7, Glu:166 Meds Noted: novolog, lantus, coumadin Skin: WNL Additional Notes: pt diet advanced to low fiber, mildly thick level 2 liquids per SPECIAL SYSTEMS TECHNICIAN recommendations. Encourage po intake. Charted intake 50-75%. Pt lethargic during assessment and unable to answer questions. Recommend to add Ensure compact BID for supplementation. Monitor diet order, intake, tolerance, wt, labs. Follow up in 5 days.
--- NOTE | 2023-11-08 11:25 | PM.IMPN ---
Progress Note: A&P Assessment and Plan (1) Colitis: Code(s): K52.9 - Noninfective gastroenteritis and colitis, unspecified Status: Acute Assessment and Plan: Patient presents with diarrhea. CT scan showing descending colitis. CDiff negative. Other stool studies negative Was on Cipro and Flagyl 10/28 but changed to Rocephin and Flagyl Abx switched to Zosyn, 11/01 Colonoscopy 11/02 showed ischemic colitis w/ diverticulosis Remains on Zosyn Day 8, Abx Day 12 Diet started and advanced. Changed back to oral medications. Appreciate GI input (2) Atrial fibrillation: Qualifiers: Atrial fibrillation type: paroxysmal Qualified Code(s): I48.0 - Paroxysmal atrial fibrillation Code(s): I48.91 - Unspecified atrial fibrillation Status: Acute Assessment and Plan: Patient with AFib with presumably rate related BBB on tele. 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 Possibly inferior AMI so discussed with Cardiology who felt more likely rate related BBB. Previous EKGs reviewed. Consider runs of NSVT. He is off his Imdur due to soft BP. Flat troponins. Rate controlled. Continue Lopressor Coumadin resumed. Continue daily INR monitoring (3) Acute kidney injury superimposed on CKD: Code(s): N17.9 - Acute kidney failure, unspecified; N18.9 - Chronic kidney disease, unspecified Status: Acute Assessment and Plan: Cr 2.4-2.9 in August. Cr 3.5 on admission. Probably related to dehydration from Bumex and recent GI symptoms. Ultrasound showing normal right kidney but left not visualized. Bumex was held but resumed on 11/07 but now off again. Avoid nephrotoxins Appreciate Nephrology input Follow UOP, electrolytes and renal function (4) CHF (congestive heart failure): Qualifiers: Heart failure chronicity: unspecified Heart failure type: unspecified Qualified Code(s): I50.9 - Heart failure, unspecified Code(s): I50.9 - Heart failure, unspecified Status: Acute Assessment and Plan: Echo showing EF 20-25% with diastolic dysfunction grade I. Bumex was on hold as mentioned above Low-dose midodrine added for blood pressure but now held Plavix, metoprolol, losartan, Hydralazine and Imdur were on hold. Bumex resumed 1/17 bit now stopped. Metoprolol resumed and tolerating this. Add back home meds as tolerated (5) Coronary artery disease: Code(s): I25.10 - Atherosclerotic heart disease of [place] coronary artery without angina pectoris Status: Chronic Assessment and Plan: Hx of coronary stenting x10 in [facility]. No ischemic evaluation performed here. Plavix, Metoprolol resumed. No statin given allergy (6) Type 2 diabetes mellitus: Qualifiers: Diabetes mellitus senior care insulin use: with predatory animal exterminator use Diabetes mellitus complication status: with circulatory complication Diabetes mellitus complication detail: with other circulatory complications Qualified Code(s): E11.59 - Type 2 diabetes mellitus with other circulatory complications; Z79.4 - bed bug exterminator (current) use of insulin Code(s): E11.9 - Type 2 diabetes mellitus without complications Status: Chronic Assessment and Plan: The patient's blood glucose was reviewed on 11/08 Glucose remains reasonably well controlled. Continue AccuCheks covering with sliding scale. Hypoglycemia protocol available as needed. Continue to monitor. (7) Osteoarthritis of right hip: Qualifiers: Osteoarthritis type: primary Qualified Code(s): M16.11 - Unilateral primary osteoarthritis, right hip Code(s): M16.11 - Unilateral primary osteoarthritis, right hip Status: Acute Assessment and Plan: Right hip x-ray negative for any acute etiology/pathology CT showing moderate right hip OA Continue with Lidoderm patch but narcotics stopped since affecting his BP and may be contributing to this nausea Narcoticw were resu
--- NOTE | 2023-11-08 11:50 | P.PNNP_ITS ---
Progress Note: A&P Assessment and Plan (1) Chronic kidney disease, stage 4 (severe): Code(s): N18.4 - Chronic kidney disease, stage 4 (severe) Status: Chronic Assessment and Plan: * creatinine had been running ~ 2ish [place] in 2021 * due to HTN, DM, CHF/cardiomyopathy, vascular disease, EILEEN/pulmonary hypertension, and age-related change * recently the creatinine has been higher (3ish rnge) due to higher doses of diuretics needed to maintain volume status * on admission his creatinine was as high as 3.7 * it has been declining/falling with improvement in GI status +/- IV fluids and holding diuretics * off IVFs * diuretics on hold again -- still with relative intravascular volume depletion? * follow repeat labs and UOP (2) Colitis: Code(s): K52.9 - Noninfective gastroenteritis and colitis, unspecified Status: Acute Assessment and Plan: * presented with diarrhea * CT scan showing descending colitis * C Diff negative * on antibiotics * colonoscopy showed ischemia * GI following (3) Elevated troponin: Code(s): R77.8 - Other specified abnormalities of plasma proteins Status: Acute Assessment and Plan: * no symptoms of chest pain * Cardiology recommendations noted * continue medical management for now (4) Atrial fibrillation: Qualifiers: Atrial fibrillation type: paroxysmal Qualified Code(s): I48.0 - Paroxysmal atrial fibrillation Code(s): I48.91 - Unspecified atrial fibrillation Status: Acute Assessment and Plan: * continue rate control strategy * on anticoagulation (5) Hypertension: Qualifiers: Hypertension type: primary hypertension Qualified Code(s): I10 - Essential (primary) hypertension Code(s): I10 - Essential (primary) hypertension Status: Chronic Assessment and Plan: * despite history, BP running on the low/soft side * BP medications on hold * was on midodrine * follow trend of hemodynamics (6) Type 2 diabetes mellitus: Qualifiers: Diabetes mellitus halfway insulin use: with halfway use Diabetes mellitus complication status: with circulatory complication Diabetes mellitus complication detail: with other circulatory complications Qualified Code(s): E11.59 - Type 2 diabetes mellitus with other circulatory complications; Z79.4 - skilled nursing (current) use of insulin Code(s): E11.9 - Type 2 diabetes mellitus without complications Status: Chronic Assessment and Plan: * follow accu-cheks * glycemic control per hospitalists Will continue to follow. Subjective Date/time seen: 11/08/23 11:50 Interval history: Follow-up for chronic kidney disease. Diuretics discontinued today due to significant rise in creatinine; reports poor appetite and belching along with dry heves with oral liquid intake but no nausea; seems a bit lethargic at the time of my visit. Exam Narrative: General: elderly male in NAD Heart:IRRR, normal S1 and S2; no rub Lungs: coarse breath sounds and decreased at bases Abdomen: soft, mild distension; + BS Extremities: no cyanosis or clubbing; 1+ edema Skin: no nodules Objective Data Vital Signs Vital Signs: Vital Signs Temp Pulse Resp BP Pulse Ox O2 Del Method 11/08/23 10:00 78 11/08/23 08:00 87 11/08/23 09:42 85
--- NOTE | 2023-11-08 11:50 | PM.PNNEP ---
Progress Note: A&P Assessment and Plan (1) Chronic kidney disease, stage 4 (severe): Code(s): N18.4 - Chronic kidney disease, stage 4 (severe) Status: Chronic Assessment and Plan: creatinine had been running ~ 2ish [place] in 2021 due to HTN, DM, CHF/cardiomyopathy, vascular disease, EILEEN/pulmonary hypertension, and age-related change recently the creatinine has been higher (3ish rnge) due to higher doses of diuretics needed to maintain volume status on admission his creatinine was as high as 3.7 it has been declining/falling with improvement in GI status +/- IV fluids and holding diuretics off IVFs diuretics on hold again -- still with relative intravascular volume depletion? follow repeat labs and UOP (2) Colitis: Code(s): K52.9 - Noninfective gastroenteritis and colitis, unspecified Status: Acute Assessment and Plan: presented with diarrhea CT scan showing descending colitis C Diff negative on antibiotics colonoscopy showed ischemia GI following (3) Elevated troponin: Code(s): R77.8 - Other specified abnormalities of plasma proteins Status: Acute Assessment and Plan: no symptoms of chest pain Cardiology recommendations noted continue medical management for now (4) Atrial fibrillation: Qualifiers: Atrial fibrillation type: paroxysmal Qualified Code(s): I48.0 - Paroxysmal atrial fibrillation Code(s): I48.91 - Unspecified atrial fibrillation Status: Acute Assessment and Plan: continue rate control strategy on anticoagulation (5) Hypertension: Qualifiers: Hypertension type: primary hypertension Qualified Code(s): I10 - Essential (primary) hypertension Code(s): I10 - Essential (primary) hypertension Status: Chronic Assessment and Plan: despite history, BP running on the low/soft side BP medications on hold was on midodrine follow trend of hemodynamics (6) Type 2 diabetes mellitus: Qualifiers: Diabetes mellitus senior living insulin use: with terminal gauger use Diabetes mellitus complication status: with circulatory complication Diabetes mellitus complication detail: with other circulatory complications Qualified Code(s): E11.59 - Type 2 diabetes mellitus with other circulatory complications; Z79.4 - terminal makeup operator (current) use of insulin Code(s): E11.9 - Type 2 diabetes mellitus without complications Status: Chronic Assessment and Plan: follow accu-cheks glycemic control per hospitalists Will continue to follow. Subjective Date/time seen: 11/08/23 11:50 Interval history: Follow-up for chronic kidney disease. Diuretics discontinued today due to significant rise in creatinine; reports poor appetite and belching along with dry heves with oral liquid intake but no nausea; seems a bit lethargic at the time of my visit. Exam Narrative: General: elderly male in NAD Heart:IRRR, normal S1 and S2; no rub Lungs: coarse breath sounds and decreased at bases Abdomen: soft, mild distension; + BS Extremities: no cyanosis or clubbing; 1+ edema Skin: no nodules Objective Data Vital Signs Vital Signs: Vital Signs Temp Pulse Resp BP Pulse Ox O2 Del Method 11/08/23 10:00 78 11/08/23 08:00 87 11/08/23 09:42 85 11/08/23 09:41 79 11/08/23 08:38 97.3 F L 78 16 110/66 92 11/08/23 06:00 71 11/08/23 04:00 79 11/08/23 02:00 79 11/08/23 03:40 97.4 F L 82 18 108/72 95 11/08/23 03:14 Room Air 11/08/23 00:00 Room Air 11/08/23 00:00 94 11/08/23 00:00 97.6 F 79 18 104/58 L 96 11/07/23 20:00 Room Air 11/07/23 22:00 80 11/07/23 20:00 84 11/07/23 20:41 99 11/07/23 20:18 97.8 F 90 18 110/67 99 11/07/23 18:00 91 11/07/23 16:00 87 11/07/23 15:35 97.6 F 85 18 104/69 93 11/07/23 15:44 86
[2023-11-08 11:57] LABS: Glucose Point of Care 163 mg/dl (65-105)
--- NOTE | 2023-11-08 13:08 | WPDGIPROGNO ---
Progress Note: A&P Assessment and Plan (1) Ischemic colitis: Code(s): K55.9 - Vascular disorder of intestine, unspecified Status: Acute Assessment and Plan: he is eating more and tolerating diet also on ppi on antibiotics for colitis (C diff negative)- changed to oral (2) Ileus, unspecified: Code(s): K56.7 - Ileus, unspecified Status: Acute Assessment and Plan: clinically better less diarrhea and he is eating (3) Acute kidney injury superimposed on CKD: Code(s): N17.9 - Acute kidney failure, unspecified; N18.9 - Chronic kidney disease, unspecified Status: Acute Assessment and Plan: nephrology on board creatinine still up (4) CHF (congestive heart failure): Qualifiers: Heart failure chronicity: unspecified Heart failure type: unspecified Qualified Code(s): I50.9 - Heart failure, unspecified Code(s): I50.9 - Heart failure, unspecified Status: Acute (5) Atrial fibrillation: Qualifiers: Atrial fibrillation type: paroxysmal Qualified Code(s): I48.0 - Paroxysmal atrial fibrillation Code(s): I48.91 - Unspecified atrial fibrillation Status: Acute Assessment and Plan: by primary, back on coumadin Subjective Date/time seen: 11/08/23 13:08 Interval history: he finished lunch and ate more, no abdominal discomfort, diarrhea is slowing down Review of Systems Review of Systems: All systems reviewed & are unremarkable except as noted in HPI and below Exam Const: General: comfortable Other: sitting up in chair and just finished lunch (rice and chicken) HENMT: Face/Nose/Sinus: Normal nares present Eyes: Sclera: sclerae normal Neck: Neck: supple Resp: Effort & Inspection: normal respiratory effort Cardio: Rhythm: abnormal rhythm irregularly irregular GI: GI Palp: Yes Soft to palpation, No Tenderness to palpation present (GI) and No Guarding due to palpation present (GI) Skin: General skin exam: normal color Neuro: Speech: normal speech Motor exam (neuro): 5/5 motor strength present throughout Extrem: General: normal to inspection Psych: Mental Status: mental status grossly normal Objective Data Vital Signs Vital Signs: Vital Signs - 24 hr 11/07/23 14:00 11/07/23 15:44 11/07/23 15:35 Temperature 97.6 F Pulse Rate 93 86 85 Respiratory Rate 18 Blood Pressure 104/69 Pulse Oximetry 93 Oxygen Delivery 11/07/23 16:00 11/07/23 18:00 11/07/23 20:18 Temperature 97.8 F Pulse Rate 87 91 90 Respiratory Rate 18 Blood Pressure 110/67 Pulse Oximetry 99 Oxygen Delivery 11/07/23 20:41 11/07/23 20:00 11/07/23 22:00 Temperature Pulse Rate 99 84 80 Respiratory Rate Blood Pressure Pulse Oximetry Oxygen Delivery 11/07/23 20:00 11/08/23 00:00 11/08/23 00:00 Temperature 97.6 F Pulse Rate 79 94 Respiratory Rate 18 Blood Pressure 104/58 L Pulse Oximetry 96 Oxygen Delivery Room Air 11/08/23 00:00 11/08/23 03:14 11/08/23 03:40 Temperature 97.4 F L Pulse Rate 82 Respiratory Rate 18 Blood Pressure 108/72 Pulse Oximetry 95 Oxygen Delivery Room Air Room Air 11/08/23 02:00 11/08/23 04:00 11/08/23 06:00 Temperature Pulse Rate 79 79 71 Respiratory Rate Blood Pressure Pulse Oximetry Oxygen Delivery 11/08/23 08:38 11/08/23 09:41 11/08/23 09:42 Temperature 97.3 F L Pulse Rate 78 79 85 Respiratory Rate 16 Blood Pressure 110/66 Pulse Oximetry 92 Oxygen Delivery 11/08/23 08:00 11/08/23 10:00 11/08/23 12:00 Temperature 97.1 F L Pulse Rate 87 78 88 Respiratory Rate 16 Blood Pressure 99/60 L Pulse Oximetry 96 Oxygen Delivery Intake/Output Intake/Output: Intake & Output 11/05/23 11/06/23 11/07/23 11/08/23 23:59 23:59 23:59 23:59 Intake Total 3150 2820 2600 290 Output Total 201 700 503 200 Balance 2949 2124 2090 90 Meds/Results Medications: Ac
--- NOTE | 2023-11-08 15:04 | PC.NURSE ---
On 11/08/23, the student, [Abimael Herrera ], provided care and completed [employer] documentation on this patient. I have reviewed the student's documentation and agree with the findings.
[2023-11-08 15:38] LABS: Glucose Point of Care 174 mg/dl (65-105)
[2023-11-08] MEDS: WARFARIN (*PBKC) 5 MG TABLET PO (16:43)
--- NOTE | 2023-11-08 17:25 | PC.NURSE ---
Addendum entered by Nieves Sanders RN 11/08/23 18:22: transferred via bed with all belongings. Original Note: Pt room 204 transferring to room 343. report given to JACQUIE Overton.
--- NOTE | 2023-11-08 17:50 | PC.NURSE ---
This patient, Nigel Wang, was received from IMU on 11/08/23 at 1750. Patient oriented to unit policies and routines
[2023-11-08] MEDS: INSULIN ASPART (*BKC) 100 UNITS/ML SUB-Q (20:44)
[2023-11-08] MEDS: TOLNAFTATE 1% POWDER 45 GM BTL 1 APPLIC TOPICAL (20:44)
[2023-11-08] MEDS: INSULIN GLARGINE (*BKC) 100 UNITS/ML SUB-Q (20:44)
[2023-11-08 20:59] LABS: Glucose Point of Care 230 mg/dl (65-105)
[2023-11-08] MEDS: PROMETHAZINE HCL 25 MG/ML AMPUL IM (21:00)
[2023-11-08] MEDS: DOXAZOSIN MESYLATE 2 MG TABLET PO (21:27)
[2023-11-09] VITALS (9 sets, daily range): BP systolic 96–143; BP diastolic 55–79; PULSE 80–104; RESP 16–18; TEMP 36.1–36.4; O2SAT 93–99
[2023-11-09] MEDS: PIPERACILLN/TAZ 3.375GM/NS50ML 3.375 GM/50 ML BAG IVPB ×3 (03:48→15:18)
[2023-11-09] MEDS: LEVOTHYROXINE SODIUM 100 MCG TABLET PO (05:37)
[2023-11-09 06:00] LABS: Basophils Absolute Auto 0.1 K/mm3 (0.0-0.1); Basophils Percent Auto 0.5 % (0.2-1.2); Eosinophils Absolute Auto 0.4 K/mm3 (0-0.3); Eosinophils Percent Auto 3.7 % (0-4.4); Hematocrit 32.2 % (42.0-52.0); Hemoglobin 9.6 g/dL (14.0-18.0); Immature Granulocyte Absolute 0.05 K/mm3 (0.00-0.031); Immature Granulocyte Percent A 0.5 % (0-0.5); Lymphocytes Absolute Auto 0.89 K/mm3 (0.9-3.2); Lymphocytes Percent Auto 8.5 % (18.3-44.2); Mean Corpuscular HGB Conc 29.8 g/dl (32-36); Mean Corpuscular Hemoglobin 30.2 pg (26-34); Mean Corpuscular Volume 101.3 fl (80-100); Mean Platelet Volume 10.8 fl (7.4-10.4); Monocytes Absolute Auto 0.5 K/mm3 (0.1-0.6); Monocytes Percent Auto 4.3 % (2.6-8.5); Neutrophils Absolute Auto 8.7 K/mm3 (1.3-6.7); Neutrophils Percent Auto 82.5 % (45.5-73.1); Platelet Count Result 249 k/mm3 (150-375); Red Blood Count 3.18 M/mm3 (4.6-6.20); Red Cell Distribution Width 16.6 % (11.5-14.5); White Blood Count 10.5 K/mm3 (4.5-10.0)
[2023-11-09 06:09] LABS: Alanine Aminotransferase 11 U/L (6-50); Albumin Level 2.7 g/dL (3.5-5.1); Alkaline Phosphatase 63 U/L (38-126); Anion Gap 7 mmol/L (8-16); Aspartate Amino Transferase 20 U/L (17-59); Bilirubin,Total 0.5 mg/dL (0.2-1.3); Blood Urea Nitrogen 66 mg/dL (9-20); Calcium 7.9 mg/dL (8.4-10.2); Carbon Dioxide 30 mmol/L (22-30); Chloride 104 mmol/L (98-107); Estimated CRCL calculation 21 ml/min; Estimated Glomerular Filt Rate 15; Glucose 174 mg/dL (65-110); Potassium 3.3 mmol/L (3.4-5.0); Sodium 141 mmol/L (137-145)
[2023-11-09 06:10] LABS: INR 3.5; Prothrombin Time 37.9 Seconds (11.1-14.7)
[2023-11-09 07:31] LABS: Hypochromasia 1+ (NORMAL); Platelet Estimate Adequate (Adequate)
[2023-11-09 07:32] LABS: Anisocytosis 1+ (NORMAL); Ovalocytes 1+ (NORMAL); Poikilocytosis 1+ (NORMAL); Schistocytes Rare (NORMAL); Target Cells 1+ (NORMAL)
[2023-11-09 08:38] LABS: Glucose Point of Care 175 mg/dl (65-105)
--- NOTE | 2023-11-09 09:14 | PM.IMPN ---
Progress Note: A&P Assessment and Plan (1) Acute kidney injury superimposed on CKD: Code(s): N17.9 - Acute kidney failure, unspecified; N18.9 - Chronic kidney disease, unspecified Status: Acute Assessment and Plan: Cr 2.4-2.9 in August. Cr 3.5 on admission. Probably related to dehydration from Bumex and recent GI symptoms. Ultrasound showing normal right kidney but left not visualized. CT showing severe atrophy of the kidneys with cysts of the right kidney up to 7.1cm Bumex was held but resumed on 11/07 but now off again. Appreciate Nephrology input Cr worse again today to 3.8. Consider pre-renal from diarrhea. Diet intake has improved. NS x 1L. Avoid nephrotoxic agents. Follow UOP, electrolytes and renal function. (2) Colitis: Code(s): K52.9 - Noninfective gastroenteritis and colitis, unspecified Status: Acute Assessment and Plan: Patient presents with diarrhea. CT scan showing descending colitis. CDiff negative. Other stool studies negative Was on Cipro and Flagyl 10/28 but changed to Rocephin and Flagyl Abx switched to Zosyn 11/01 Colonoscopy 11/02 showed ischemic colitis w/ diverticulosis Remains on Zosyn Day 9, Abx Day 13 Diet started and advanced. Changed back to oral medications. Renally dose Zosyn. Still with diarrhea. Could be getting behind on his fluids. NS x 1L. Appreciate GI input (3) Atrial fibrillation: Qualifiers: Atrial fibrillation type: paroxysmal Qualified Code(s): I48.0 - Paroxysmal atrial fibrillation Code(s): I48.91 - Unspecified atrial fibrillation Status: Acute Assessment and Plan: Patient with AFib with presumably rate related BBB on tele. 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 Possibly inferior AMI so discussed with Cardiology who felt more likely rate related BBB. Previous EKGs reviewed. Consider runs of NSVT. He is off his Imdur due to soft BP. Flat troponins. Rate controlled. Continue Lopressor Coumadin resumed but INR 3.5 so will hold for today. Continue daily INR monitoring (4) CHF (congestive heart failure): Qualifiers: Heart failure chronicity: unspecified Heart failure type: unspecified Qualified Code(s): I50.9 - Heart failure, unspecified Code(s): I50.9 - Heart failure, unspecified Status: Acute Assessment and Plan: Echo showing EF 20-25% with diastolic dysfunction grade I. Bumex was on hold as mentioned above Low-dose midodrine added for blood pressure but now stopped Plavix, metoprolol, losartan, Hydralazine and Imdur were on hold. Bumex resumed 11/07 but now stopped. Metoprolol resumed and tolerating this. Add back home meds as tolerated (5) Coronary artery disease: Code(s): I25.10 - Atherosclerotic heart disease of [place] coronary artery without angina pectoris Status: Chronic Assessment and Plan: Hx of coronary stenting x10 in [facility]. No prior ischemic evaluation performed here. Plavix, Metoprolol resumed. No statin given allergy. (6) Type 2 diabetes mellitus: Qualifiers: Diabetes mellitus shelter insulin use: with shelter use Diabetes mellitus complication status: with circulatory complication Diabetes mellitus complication detail: with other circulatory complications Qualified Code(s): E11.59 - Type 2 diabetes mellitus with other circulatory complications; Z79.4 - terminal carman (current) use of insulin Code(s): E11.9 - Type 2 diabetes mellitus without complications Status: Chronic Assessment and Plan: The patient's blood glucose was reviewed on 11/09 Glucose remains reasonably well controlled mostly 160-170 Continue AccuCheks covering with sliding scale. Hypoglycemia protocol available as needed. Continue to monitor. (7) Osteoarthritis of right hip: Qualifiers: Osteoarthritis type: primary Qualified Code(s): M16.11 - Unilateral primary osteoarthritis, right hip
[2023-11-09] MEDS: AMIODARONE HCL 200 MG TABLET PO (10:27)
[2023-11-09] MEDS: allopurinoL 100 MG TABLET PO (10:27)
[2023-11-09] MEDS: METOPROLOL SUCCINATE EXT REL 25 MG TABCR PO (10:27)
[2023-11-09] MEDS: PANTOPRAZOLE SODIUM IV 40 MG VIAL IV PUSH (10:28)
[2023-11-09] MEDS: LIDOCAINE 5% PATCH 1 PATCH TRANSDERM (10:28)
[2023-11-09] MEDS: TOLNAFTATE 1% POWDER 45 GM BTL 1 APPLIC TOPICAL ×2 (10:29→22:26)
[2023-11-09] MEDS: CLOPIDOGREL BISULFATE 75 MG TABLET PO (10:29)
--- NOTE | 2023-11-09 10:53 | PM.PNNEP ---
Progress Note: A&P Assessment and Plan (1) Chronic kidney disease, stage 4 (severe): Code(s): N18.4 - Chronic kidney disease, stage 4 (severe) Status: Chronic Assessment and Plan: creatinine had been running ~ 2ish [place] in 2021 due to HTN, DM, CHF/cardiomyopathy, vascular disease, EILEEN/pulmonary hypertension, and age-related change recently the creatinine has been higher (3ish rnge) due to higher doses of diuretics needed to maintain volume status on admission his creatinine was as high as 3.7 it has been declining/falling with improvement in GI status +/- IV fluids and holding diuretics off IVFs diuretics on hold again -- still with relative intravascular volume depletion? agree with trial of IVFs today follow repeat labs and UOP (2) Colitis: Code(s): K52.9 - Noninfective gastroenteritis and colitis, unspecified Status: Acute Assessment and Plan: presented with diarrhea CT scan showing descending colitis C Diff negative on antibiotics colonoscopy showed ischemia GI following (3) Elevated troponin: Code(s): R77.8 - Other specified abnormalities of plasma proteins Status: Acute Assessment and Plan: no symptoms of chest pain Cardiology recommendations noted continue medical management for now (4) Atrial fibrillation: Qualifiers: Atrial fibrillation type: paroxysmal Qualified Code(s): I48.0 - Paroxysmal atrial fibrillation Code(s): I48.91 - Unspecified atrial fibrillation Status: Acute Assessment and Plan: continue rate control strategy on anticoagulation (5) Hypertension: Qualifiers: Hypertension type: primary hypertension Qualified Code(s): I10 - Essential (primary) hypertension Code(s): I10 - Essential (primary) hypertension Status: Chronic Assessment and Plan: despite history, BP running on the low/soft side BP medications on hold was on midodrine follow trend of hemodynamics (6) Type 2 diabetes mellitus: Qualifiers: 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 Subjective Date/time seen: 11/09/23 10:53 Interval history: Follow-up for chronic kidney disease. Still with on/off diarrhea in the last 24 hours and reports ongoing abdominal pain with oral intake; denies any shortness of breath and thinks nausea is doing better as well. Exam Narrative: General: elderly male in NAD Heart:IRRR, normal S1 and S2; no rub Lungs: coarse breath sounds and decreased at bases Abdomen: soft, mild distension; + BS Extremities: no cyanosis or clubbing; 1+ edema Skin: warm and dry Objective Data Vital Signs Vital Signs: Vital Signs Temp Pulse Resp BP Pulse Ox O2 Del Method 11/09/23 10:00 97.6 F 101 H 16 98/72 L 99 11/09/23 08:00 80 11/09/23 10:27 85 11/09/23 10:27 85 11/09/23 04:00 82 11/09/23 04:00 97.1 F L 90 16 96/55 L 93 11/08/23 22:02 94 Room Air 11/09/23 00:00 80 11/08/23 20:00 Room Air 11/08/23 20:00 72 11/08/23 20:39 97.4 F L 89 22 H 90/59 L 94 Intake/Output Intake/Output: Intake & Output 11/06/23 11/07/23 11/08/23 11/09/23 23:59 23:59 23:59 23:59 Intake Total 2820 2600 1810 562 Output Total 700 503 450 300 Balance 2120 2097 1360 262 Meds/Results Medications: Active Medications Generic Name Dose Route Start Last Admin Trade Name
--- NOTE | 2023-11-09 10:53 | P.PNNP_ITS ---
Progress Note: A&P Assessment and Plan (1) Chronic kidney disease, stage 4 (severe): Code(s): N18.4 - Chronic kidney disease, stage 4 (severe) Status: Chronic Assessment and Plan: * creatinine had been running ~ 2ish [place] in 2021 * due to HTN, DM, CHF/cardiomyopathy, vascular disease, EILEEN/pulmonary hypertension, and age-related change * recently the creatinine has been higher (3ish rnge) due to higher doses of diuretics needed to maintain volume status * on admission his creatinine was as high as 3.7 * it has been declining/falling with improvement in GI status +/- IV fluids and holding diuretics * off IVFs * diuretics on hold again -- still with relative intravascular volume depletion? * agree with trial of IVFs today * follow repeat labs and UOP (2) Colitis: Code(s): K52.9 - Noninfective gastroenteritis and colitis, unspecified Status: Acute Assessment and Plan: * presented with diarrhea * CT scan showing descending colitis * C Diff negative * on antibiotics * colonoscopy showed ischemia * GI following (3) Elevated troponin: Code(s): R77.8 - Other specified abnormalities of plasma proteins Status: Acute Assessment and Plan: * no symptoms of chest pain * Cardiology recommendations noted * continue medical management for now (4) Atrial fibrillation: Qualifiers: Atrial fibrillation type: paroxysmal Qualified Code(s): I48.0 - Paroxysmal atrial fibrillation Code(s): I48.91 - Unspecified atrial fibrillation Status: Acute Assessment and Plan: * continue rate control strategy * on anticoagulation (5) Hypertension: Qualifiers: Hypertension type: primary hypertension Qualified Code(s): I10 - Essential (primary) hypertension Code(s): I10 - Essential (primary) hypertension Status: Chronic Assessment and Plan: * despite history, BP running on the low/soft side * BP medications on hold * was on midodrine * follow trend of hemodynamics (6) Type 2 diabetes mellitus: Qualifiers: 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 Subjective Date/time seen: 11/09/23 10:53 Interval history: Follow-up for chronic kidney disease. Still with on/off diarrhea in the last 24 hours and reports ongoing abdominal pain with oral intake; denies any shortness of breath and thinks nausea is doing better as well. Exam Narrative: General: elderly male in NAD Heart:IRRR, normal S1 and S2; no rub Lungs: coarse breath sounds and decreased at bases Abdomen: soft, mild distension; + BS Extremities: no cyanosis or clubbing; 1+ edema Skin: warm and dry Objective Data Vital Signs Vital Signs: Vital Signs Temp Pulse Resp BP Pulse Ox O2 Del Method 11/09/23 10:00 97.6 F 101 H 16 98/72 L 99 11/09/23 08:00 80
[2023-11-09 12:27] LABS: Glucose Point of Care 189 mg/dl (65-105)
--- NOTE | 2023-11-09 15:23 | WPDGIPROGNO ---
Progress Note: A&P Assessment and Plan (1) Ischemic colitis: Code(s): K55.9 - Vascular disorder of intestine, unspecified Status: Acute Assessment and Plan: he is eating and tolerating diet, some discomfort in throat probably from recent ngt also on ppi on antibiotics for colitis (C diff negative) diarrhea also could be from abx, consider to discontinue and monitor will follow as needed (2) Ileus, unspecified: Code(s): K56.7 - Ileus, unspecified Status: Acute Assessment and Plan: clinically better he is eating still with diarrhea (3) Acute kidney injury superimposed on CKD: Code(s): N17.9 - Acute kidney failure, unspecified; N18.9 - Chronic kidney disease, unspecified Status: Acute Assessment and Plan: nephrology on board creatinine still elevated (4) CHF (congestive heart failure): Qualifiers: Heart failure chronicity: unspecified Heart failure type: unspecified Qualified Code(s): I50.9 - Heart failure, unspecified Code(s): I50.9 - Heart failure, unspecified Status: Acute (5) Atrial fibrillation: Qualifiers: Atrial fibrillation type: paroxysmal Qualified Code(s): I48.0 - Paroxysmal atrial fibrillation Code(s): I48.91 - Unspecified atrial fibrillation Status: Acute Assessment and Plan: by primary, back on coumadin Subjective Date/time seen: 11/09/23 15:23 Interval history: he is eating, still some throat discomfort he thinks from previous NGT still with similar diarrhea Review of Systems Review of Systems: All systems reviewed & are unremarkable except as noted in HPI and below Exam Const: General: comfortable Other: sitting up in chair, generalized weakness- unchanged HENMT: Face/Nose/Sinus: Normal nares present Eyes: Sclera: sclerae normal Neck: Neck: supple Resp: Effort & Inspection: normal respiratory effort Cardio: Rhythm: abnormal rhythm irregularly irregular GI: GI Palp: Yes Soft to palpation, No Tenderness to palpation present (GI) and No Guarding due to palpation present (GI) Skin: General skin exam: normal color Neuro: Speech: normal speech Motor exam (neuro): 5/5 motor strength present throughout Extrem: General: pedal edema (trace) bilaterally Psych: Mental Status: mental status grossly normal Objective Data Vital Signs Vital Signs: Vital Signs - 24 hr 11/08/23 16:00 11/08/23 20:39 11/08/23 20:00 Temperature 97.4 F L Pulse Rate 65 89 72 Respiratory Rate 22 H Blood Pressure 90/59 L Pulse Oximetry 94 Oxygen Delivery 11/08/23 20:00 11/09/23 00:00 11/08/23 22:02 Temperature Pulse Rate 80 Respiratory Rate Blood Pressure Pulse Oximetry 94 Oxygen Delivery Room Air Room Air 11/09/23 04:00 11/09/23 04:00 11/09/23 10:27 Temperature 97.1 F L Pulse Rate 90 82 85 Respiratory Rate 16 Blood Pressure 96/55 L Pulse Oximetry 93 Oxygen Delivery 11/09/23 10:27 11/09/23 08:00 Temperature Pulse Rate 85 80 Respiratory Rate Blood Pressure Pulse Oximetry Oxygen Delivery Intake/Output Intake/Output: Intake & Output 11/06/23 11/07/23 11/08/23 11/09/23 23:59 23:59 23:59 23:59 Intake Total 2820 2600 1810 562 Output Total 700 503 450 300 Balance 2120 2097 1360 262 Meds/Results Medications: Active Medications Generic Name Dose Route Start Last Admin Trade Name Freq PRN Reason Stop Dose Admin Acetaminophen 650 mg 11/08/23 11:46 11/08/23 21:27 Acetaminophen 325 Mg Tablet PO 650 mg Q4H PRN Administration Pain Rated 5 or Less Hydrocodone Bitart/Acetaminophen 0.5 tab 11/08/23 11:46 Hydrocodone/Acetaminophen (*Crx) 5-325 Mg Tablet PO Q6H PRN Pain Rated 6 or Greater Al Hydrox/Mg Hydrox/Simethicone 30 ml 10/30/23 07:40 Mag Hydrox/Al Hydrox/Simeth 30 Ml Udc PO Q6H PRN Indigestion Albuterol 2.5 mg 10/29/23 04:00 Albuterol Sulfate N
[2023-11-09] MEDS: SODIUM CHLORIDE 0.9% IV 1,000 ML 100 ML IV CONT (15:42)
--- NOTE | 2023-11-09 16:52 | PC.NURSE ---
Pt refused ANGEL Vitale after multiple attempts and education stating those never work .
[2023-11-09 17:29] LABS: Glucose Point of Care 197 mg/dl (65-105)
[2023-11-09] MEDS: ACETAMINOPHEN 325 MG TABLET 650 MG PO (22:25)
[2023-11-09] MEDS: DOXAZOSIN MESYLATE 2 MG TABLET PO (22:25)
[2023-11-09] MEDS: INSULIN GLARGINE (*BKC) 100 UNITS/ML SUB-Q (22:26)
[2023-11-10] VITALS (8 sets, daily range): BP systolic 111–119; BP diastolic 66–68; PULSE 77–100; RESP 18–20; TEMP 36.1–36.2; O2SAT 96–98
[2023-11-10 05:52] LABS: Basophils Percent Auto 0.4 % (0.2-1.2); Eosinophils Absolute Auto 0.3 K/mm3 (0-0.3); Hematocrit 32.5 % (42.0-52.0); Hemoglobin 9.6 g/dL (14.0-18.0); Immature Granulocyte Absolute 0.04 K/mm3 (0.00-0.031); Immature Granulocyte Percent A 0.4 % (0-0.5); Lymphocytes Absolute Auto 1.21 K/mm3 (0.9-3.2); Lymphocytes Percent Auto 12.3 % (18.3-44.2); Mean Corpuscular HGB Conc 29.5 g/dl (32-36); Mean Corpuscular Hemoglobin 30.3 pg (26-34); Mean Corpuscular Volume 102.5 fl (80-100); Mean Platelet Volume 10.8 fl (7.4-10.4); Monocytes Absolute Auto 0.5 K/mm3 (0.1-0.6); Monocytes Percent Auto 4.7 % (2.6-8.5); Neutrophils Absolute Auto 7.8 K/mm3 (1.3-6.7); Neutrophils Percent Auto 79.2 % (45.5-73.1); Platelet Count Result 252 k/mm3 (150-375); Red Blood Count 3.17 M/mm3 (4.6-6.20); Red Cell Distribution Width 16.4 % (11.5-14.5); White Blood Count 9.9 K/mm3 (4.5-10.0)
[2023-11-10 06:01] LABS: INR 3.7; Prothrombin Time 39.5 Seconds (11.1-14.7)
[2023-11-10 06:04] LABS: Alanine Aminotransferase 11 U/L (6-50); Alkaline Phosphatase 67 U/L (38-126); Anion Gap 9 mmol/L (8-16); Aspartate Amino Transferase 18 U/L (17-59); Bilirubin,Total 0.5 mg/dL (0.2-1.3); Blood Urea Nitrogen 59 mg/dL (9-20); Calcium 7.9 mg/dL (8.4-10.2); Carbon Dioxide 27 mmol/L (22-30); Chloride 104 mmol/L (98-107); Estimated CRCL calculation 21 ml/min; Estimated Glomerular Filt Rate 15; Glucose 161 mg/dL (65-110); Sodium 140 mmol/L (137-145)
[2023-11-10] MEDS: LEVOTHYROXINE SODIUM 100 MCG TABLET PO (06:19)
[2023-11-10 06:29] LABS: Ovalocytes 2+ (NORMAL); Platelet Estimate Adequate (Adequate); Schistocytes None Seen (NORMAL); Tear Drop Cells 1+ (NORMAL)
[2023-11-10 07:05] LABS: Glucose Point of Care 188 mg/dl (65-105)
[2023-11-10 08:32] LABS: Glucose Point of Care 147 mg/dl (65-105)
[2023-11-10] MEDS: CLOPIDOGREL BISULFATE 75 MG TABLET PO (10:06)
[2023-11-10] MEDS: AMIODARONE HCL 200 MG TABLET PO (10:06)
[2023-11-10] MEDS: allopurinoL 100 MG TABLET PO (10:07)
[2023-11-10] MEDS: LIDOCAINE 5% PATCH 1 PATCH TRANSDERM (10:07)
[2023-11-10] MEDS: POTASSIUM CHLORIDE 20 MEQ PACKET (FOR LIQUID) 40 MEQ PO (10:08)
[2023-11-10] MEDS: PANTOPRAZOLE SODIUM IV 40 MG VIAL IV PUSH (10:08)
[2023-11-10] MEDS: METOPROLOL SUCCINATE EXT REL 25 MG TABCR PO (10:08)
[2023-11-10] MEDS: TOLNAFTATE 1% POWDER 45 GM BTL 1 APPLIC TOPICAL (10:15)
--- NOTE | 2023-11-10 10:18 | PM.PNNEP ---
Progress Note: A&P Assessment and Plan (1) Chronic kidney disease, stage 4 (severe): Code(s): N18.4 - Chronic kidney disease, stage 4 (severe) Status: Chronic Assessment and Plan: creatinine had been running ~ 2ish [place] in 2021 due to HTN, DM, CHF/cardiomyopathy, vascular disease, EILEEN/pulmonary hypertension, and age-related change recently the creatinine has been higher (3ish rnge) due to higher doses of diuretics needed to maintain volume status on admission his creatinine was as high as 3.7 it has been declining/falling with improvement in GI status +/- IV fluids and holding diuretics off IVFs diuretics on hold again -- still with relative intravascular volume depletion? consider restart diuretics in another 24 - 48 hours follow repeat labs and UOP (2) Colitis: Code(s): K52.9 - Noninfective gastroenteritis and colitis, unspecified Status: Acute Assessment and Plan: presented with diarrhea CT scan showing descending colitis C Diff negative on antibiotics colonoscopy showed ischemia GI following (3) Elevated troponin: Code(s): R77.8 - Other specified abnormalities of plasma proteins Status: Acute Assessment and Plan: no symptoms of chest pain Cardiology recommendations noted continue medical management for now (4) Atrial fibrillation: Qualifiers: Atrial fibrillation type: paroxysmal Qualified Code(s): I48.0 - Paroxysmal atrial fibrillation Code(s): I48.91 - Unspecified atrial fibrillation Status: Acute Assessment and Plan: continue rate control strategy on anticoagulation (5) Hypertension: Qualifiers: Hypertension type: primary hypertension Qualified Code(s): I10 - Essential (primary) hypertension Code(s): I10 - Essential (primary) hypertension Status: Chronic Assessment and Plan: despite history, BP running on the low/soft side BP medications on hold was on midodrine follow trend of hemodynamics (6) Type 2 diabetes mellitus: Qualifiers: Diabetes mellitus roasterman insulin use: with skilled nursing use Diabetes mellitus complication status: with circulatory complication Diabetes mellitus complication detail: with other circulatory complications Qualified Code(s): E11.59 - Type 2 diabetes mellitus with other circulatory complications; Z79.4 - jail (current) use of insulin Code(s): E11.9 - Type 2 diabetes mellitus without complications Status: Chronic Assessment and Plan: follow accu-cheks glycemic control per hospitalists Will continue to follow. Subjective Date/time seen: 11/10/23 10:18 Interval history: Follow-up for chronic kidney disease. Diarrhea still present but has lessened in the last 24 hours; able to tolerate oral intake with minimal abdominal pain; renal function about the same; s/p 1L IVFs yesterday; no acute distress noted. Exam Narrative: General: elderly male in NAD Heart:IRRR, normal S1 and S2; no rub Lungs: coarse breath sounds and decreased at bases Abdomen: soft, mild distension; + BS Extremities: no cyanosis or clubbing; 1+ edema Skin: warm and intact Objective Data Vital Signs Vital Signs: Vital Signs Temp Pulse Resp BP Pulse Ox 11/10/23 08:00 90 11/10/23 10:08 100 11/10/23 10:06 100 11/10/23 06:00 97.0 F L 84 20 111/68 98 11/10/23 04:00 93 11/10/23 00:00 87 11/09/23 20:00 85 11/09/23 20:51 97.0 F L 104 H 18 143/79 H 96 11/09/23 16:00 84 11/09/23 14:00 97.6 F 101 H 16 98/72 L 99 Intake/Output Intake/Output: Intake & Output 11/07/23 11/08/23 11/09/23 11/10/23 23:59 23:59 23:59 23:59 Intake Total 2600 1810 562 920 Output Total 503 450 600 600 Balance 2097 1360 -38 320 Meds/Results Medications: Active Medications Generic Name Dose Route Start Last Admin Trade Name Freq PRN Reason
--- NOTE | 2023-11-10 10:18 | P.PNNP_ITS ---
Progress Note: A&P Assessment and Plan (1) Chronic kidney disease, stage 4 (severe): Code(s): N18.4 - Chronic kidney disease, stage 4 (severe) Status: Chronic Assessment and Plan: * creatinine had been running ~ 2ish [place] in 2021 * due to HTN, DM, CHF/cardiomyopathy, vascular disease, EILEEN/pulmonary hypertension, and age-related change * recently the creatinine has been higher (3ish rnge) due to higher doses of diuretics needed to maintain volume status * on admission his creatinine was as high as 3.7 * it has been declining/falling with improvement in GI status +/- IV fluids and holding diuretics * off IVFs * diuretics on hold again -- still with relative intravascular volume depletion? * consider restart diuretics in another 24 - 48 hours * follow repeat labs and UOP (2) Colitis: Code(s): K52.9 - Noninfective gastroenteritis and colitis, unspecified Status: Acute Assessment and Plan: * presented with diarrhea * CT scan showing descending colitis * C Diff negative * on antibiotics * colonoscopy showed ischemia * GI following (3) Elevated troponin: Code(s): R77.8 - Other specified abnormalities of plasma proteins Status: Acute Assessment and Plan: * no symptoms of chest pain * Cardiology recommendations noted * continue medical management for now (4) Atrial fibrillation: Qualifiers: Atrial fibrillation type: paroxysmal Qualified Code(s): I48.0 - Paroxysmal atrial fibrillation Code(s): I48.91 - Unspecified atrial fibrillation Status: Acute Assessment and Plan: * continue rate control strategy * on anticoagulation (5) Hypertension: Qualifiers: Hypertension type: primary hypertension Qualified Code(s): I10 - Essential (primary) hypertension Code(s): I10 - Essential (primary) hypertension Status: Chronic Assessment and Plan: * despite history, BP running on the low/soft side * BP medications on hold * was on midodrine * follow trend of hemodynamics (6) Type 2 diabetes mellitus: Qualifiers: Diabetes mellitus retirement insulin use: with retirement use Diabetes mellitus complication status: with circulatory complication Diabetes mellitus complication detail: with other circulatory complications Qualified Code(s): E11.59 - Type 2 diabetes mellitus with other circulatory complications; Z79.4 - ocean transportation intermediary (current) use of insulin Code(s): E11.9 - Type 2 diabetes mellitus without complications Status: Chronic Assessment and Plan: * follow accu-cheks * glycemic control per hospitalists Will continue to follow. Subjective Date/time seen: 11/10/23 10:18 Interval history: Follow-up for chronic kidney disease. Diarrhea still present but has lessened in the last 24 hours; able to tolerate oral intake with minimal abdominal pain; renal function about the same; s/p 1L IVFs yesterday; no acute distress noted. Exam Narrative: General: elderly male in NAD Heart:IRRR, normal S1 and S2; no rub Lungs: coarse breath sounds and decreased at bases Abdomen: soft, mild distension; + BS Extremities: no cyanosis or clubbing; 1+ edema Skin: warm and intact Objective Data Vital Signs Vital Signs: Vital Signs Temp Pulse Resp BP Pulse Ox 11/10/23 08:00 90 11/10/23 10:08 100
--- NOTE | 2023-11-10 11:00 | PM.DS ---
DS: Admitting Diagnosis Discharge Date 11/10/23 Admitting Diagnosis Nausea and diarrhea DS: Discharge Diagnosis Discharge Diagnosis (1) Acute kidney injury superimposed on CKD: Code(s): N17.9 - Acute kidney failure, unspecified; N18.9 - Chronic kidney disease, unspecified Status: Acute (2) Colitis: Code(s): K52.9 - Noninfective gastroenteritis and colitis, unspecified Status: Acute (3) Atrial fibrillation: Qualifiers: Atrial fibrillation type: paroxysmal Qualified Code(s): I48.0 - Paroxysmal atrial fibrillation Code(s): I48.91 - Unspecified atrial fibrillation Status: Acute (4) CHF (congestive heart failure): Qualifiers: Heart failure chronicity: unspecified Heart failure type: unspecified Qualified Code(s): I50.9 - Heart failure, unspecified Code(s): I50.9 - Heart failure, unspecified Status: Acute (5) Coronary artery disease: Code(s): I25.10 - Atherosclerotic heart disease of [place] coronary artery without angina pectoris Status: Chronic (6) Type 2 diabetes mellitus: Qualifiers: Diabetes mellitus complication detail: with other circulatory complications Diabetes mellitus complication status: with circulatory complication 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 use: with superintendent marine oil [employer] use Qualified Code(s): E11.59 - Type 2 diabetes mellitus with other circulatory complications; Z79.4 - detention (current) use of insulin Code(s): E11.9 - Type 2 diabetes mellitus without complications Status: Chronic (7) Osteoarthritis of right hip: Qualifiers: Osteoarthritis type: primary Qualified Code(s): M16.11 - Unilateral primary osteoarthritis, right hip Code(s): M16.11 - Unilateral primary osteoarthritis, right hip Status: Acute (8) Hypothyroidism: Qualifiers: Hypothyroidism type: unspecified Qualified Code(s): E03.9 - Hypothyroidism, unspecified Code(s): E03.9 - Hypothyroidism, unspecified Status: Acute (9) Epigastric pain: Code(s): R10.13 - Epigastric pain Status: Acute DS: Summary Hospital Course Reason for hospitalization: 78yo male with s/d CHF, CAD and DM here for neck pain, nausea and diarrhea. Please see H&P for details. Hospital Course: Patient presents with diarrhea. CT scan showing descending colitis. CDiff negative. Other stool studies negative. Was on Cipro and Flagyl 10/28 but changed to Rocephin and Flagyl. Abx switched to Zosyn 11/01 and he completed a course. Colonoscopy 11/02 showed ischemic colitis w/ diverticulosis. Diet started and advanced. Changed back to oral medications. Still with diarrhea but improved. Cr 2.4-2.9 in August. ?Cr 3.5 on admission. Probably related to dehydration from Bumex and recent GI symptoms. Ultrasound showing normal right kidney but left not visualized.? CT showing severe atrophy of the kidneys with cysts of the right kidney up to 7.1cm. Bumex was held. Cr improved to 2.7 before worsening again. Bumex resumed for 1 day but Cr climbed to 3.8 so held. Nephrology following and appreciate their input. Patient with AFib with presumably rate related BBB on telemetry. 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 Possibly inferior AMI so discussed with Cardiology who felt more likely rate related BBB. Previous EKGs reviewed. Consider runs of NSVT. He was off his Imdur due to soft BP. Troponin up to 1.8 but was flat pattern. Rate controlled. Lopressor resumed and tolerated this. Coumadin resumed but INR 3.5 so Coumadin held. Echo showing EF 20-25% with diastolic dysfunction grade I. Bumex was on hold as mentioned above. Low-dose midodrine added for blood pressure but now stopped. Plavix, metoprolol, losartan, Hydralazine and Imdur were held. Plavix and Metoprolol were able to be resumed and tolerating this. No statin given allergy. Right hip x-ray negative for any acute etiology/pathology. CT showing moderate right hip OA. Orth
[2023-11-10 12:13] LABS: Glucose Point of Care 162 mg/dl (65-105)
[2023-11-11 02:25] LABS: SARS-CoV-2 RNA PCR Negative (Negative)
== END 2023-11-10 16:39 | DRG 394 ==
LOC: ANHED 18:48 → ANHIMU 10-29 04:04 → ANH3MED 11-10 11:26 → ANH2MED 11-12 09:26 → ANH3MED 11-12 09:26 → ANHIMU 11-12 09:26
PROVIDERS: Internal Medicine; Internal Medicine Gastroenterology; Internal Medicine Nephrology; Student in an Organized Health Care Education/Training Program; Admitting Provider Internal Medicine; Emergency Provider Student in an Organized Health Care Education/Training Program; PCP Registered Nurse; Visit Provider Internal Medicine
PROC: 0DJD8ZZ Inspection of Lower Intestinal Tract, Via Natural or Artificial Opening Endoscopic (ICD-10-PCS; CPT 45378; principal; 2023-11-02 14:30)
DX: K55.9 Vascular disorder of intestine, unspecified (principal); I13.0 Hypertensive heart and chronic kidney disease with heart failure and stage 1 through stage 4 chronic kidney disease, or unspecified chronic kidney disease; I50.42 Chronic combined systolic (congestive) and diastolic (congestive) heart failure; N18.4 Chronic kidney disease, stage 4 (severe); N17.9 Acute kidney failure, unspecified; K56.7 Ileus, unspecified; I47.19 Other supraventricular tachycardia; I35.0 Nonrheumatic aortic (valve) stenosis; I27.20 Pulmonary hypertension, unspecified; I95.9 Hypotension, unspecified; I25.10 Atherosclerotic heart disease of native coronary artery without angina pectoris; I48.0 Paroxysmal atrial fibrillation; I45.4 Nonspecific intraventricular block; E86.1 Hypovolemia; E03.9 Hypothyroidism, unspecified; E11.22 Type 2 diabetes mellitus with diabetic chronic kidney disease; K57.30 Diverticulosis of large intestine without perforation or abscess without bleeding; N28.1 Cyst of kidney, acquired; M54.2 Cervicalgia; M53.3 Sacrococcygeal disorders, not elsewhere classified; M16.11 Unilateral primary osteoarthritis, right hip; R10.13 Epigastric pain; R79.89 Other specified abnormal findings of blood chemistry; R44.1 Visual hallucinations; R40.0 Somnolence; Z20.822 Contact with and (suspected) exposure to COVID-19; G47.33 Obstructive sleep apnea (adult) (pediatric); I25.2 Old myocardial infarction; Z11.52 Encounter for screening for COVID-19; Z79.02 Long term (current) use of antithrombotics/antiplatelets; Z79.4 Long term (current) use of insulin; Z79.01 Long term (current) use of anticoagulants; Z87.891 Personal history of nicotine dependence; Z95.5 Presence of coronary angioplasty implant and graft
CPT/HCPCS: 36415; 71045; 71046; 73502; 73700; 74018; 74176; 76770; 80053; 80069; 81003; 82550; 82607; 82728; 82746; 82948; 83540; 83550; 83605; 83690; 83735; 83880; 84100; 84145; 84439; 84443; 84480; 84484; 85025; 85027; 85610; 86140; 87045; 87427; 87449; 87493; 87635; 87637; 88305; 92526; 92610; 92611; 93005; 93306; 93971; 96361; 96365; 96375; 97110; 97116; 97161; 97165; 97530; 97535; 99285; A9270; C9113; J0696; J0744; J1630; J1815; J1836; J1940; J2060; J2270; J2405; J2543; J2550; J2704; J3360; J3480; J7030; J7040; J7050; J7120; J7121

== ENCOUNTER 2023-11-11 16:02 | Inpatient (IN) | payer MEDICARE, MEDICAID, SELFPAY ==
[2023-11-11] VITALS (15 sets, daily range): BP systolic 87–111; BP diastolic 55–95; PULSE 73–86; RESP 7–22; TEMP 36.6–36.7; O2SAT 93–97; BMI 40.4
--- NOTE | ~2023-11-11 | XR_ITS ---
EXAMINATION: XR chest port-a-cath/central DATE: 11/16/2023 14:11 INDICATION: Dialysis catheter insertion. TECHNIQUE: frontal view of the chest was obtained. COMPARISON: Chest radiograph dated 11/14/2023 FINDINGS: Interval placement of a large-bore dual-lumen right internal jugular central venous dialysis catheter with distal tip in the right atrium. Increased hazy opacities throughout the right hemithorax most l ikely related to a dependently layering small pleural effusion. Additional streaky airspace opacities throughout both lungs. Blunting at the left costophrenic angle consistent with persistent small left pleural effusion. No pneumothorax. Heart size is normal. IMPRESSION: 1. Right internal jugular central venous catheter tip in the right atrium. No pneumothorax. 2. Opacities in bilateral lungs and increased on the right consistent with likely small bilateral ple ural effusions and associated atelectasis and/or pneumonia. Reviewed, dictated and finalized at location A. CH LANGUAGE PATHOLOGIST ASSISTANT IMPRESSION: 1. Right internal jugular central venous catheter tip in the right atrium. No p neumothorax. 2. Opacities in bilateral lungs and increased on the right consistent with like ly small bilateral pleural effusions and associated atelectasis and/or pneumoni a.
--- NOTE | ~2023-11-11 | XR_ITS ---
EXAMINATION: XR fl guide central line place DATE: 11/16/2023 13:44 INDICATION: Dialysis catheter insertion TECHNIQUE: 2 fluoroscopic images of the right neck and central chest were obtained during procedure p erformed by Dr. Shaw. Radiologist was not present for the imaging or procedure. The amount of fluoro scopy time used during this procedure was 0.1 minutes. Total DAP was 0.0548 mGycm^2 COMPARISON: None. FINDINGS IMPRESSION: Large-bore dual-lumen right internal jugular central venous catheter with distal tip projecting over the right atrium. See procedure note for further detail. Reviewed, dictated and finalized at location A. EY RESEARCH TEACHER
--- NOTE | ~2023-11-11 | XR_ITS ---
XR chest 1V portable 11/14/2023 09:14 Indication: Shortness of breath Procedure: AP portable chest Comparison: 09/16/2023 Findings: Cardiomegaly. Mild interstitial edema. Small left pleural effusion. No pneumothorax. No acu te osseous abnormality. Impression: 1: Cardiomegaly with mild interstitial edema. Reviewed, dictated and finalized at location B. UNTANT ASSISTANT Impression: 1: Cardiomegaly with mild interstitial edema.
--- NOTE | ~2023-11-11 | XR_ITS ---
EXAMINATION: XR chest 2V Exam Date/Time: 11/11/2023 16:40 BUILDING COORDINATOR HISTORY: SOB Comparison: 11/02/2023. RESULT: Lines, tubes, and devices: Coronary stents. Lungs and pleura: Subsegmental in the left lower lobe. Moderate left costophrenic angle blunting. Cardiomediastinal silhouette: Stable. Other: No acute osseous or upper abdominal finding. IMPRESSION: Left lower lobe opacities may represent atelectasis or pneumonia. Moderate left pleural effusion. Reviewed, dictated and finalized at location K. DING COORDINATOR
--- NOTE | ~2023-11-11 | CT_ITS ---
EXAMINATION: CT abdomen pelvis wo con DATE: 11/11/2023 17:35 INDICATION: abdominal distention TECHNIQUE: Computed tomography (CT) of the abdomen and pelvis was performed without intravenous contr ast. Automated exposure control and iterative reconstruction technique were employed. The dose-length product was 1750.36 mGy-cm. COMPARISON: 10/28/2023. FINDINGS: Exam limited by nonstandard positioning. Lower thorax: Cardiomegaly. Aortic, mitral, and coronary artery calcifications. Left pleural calcific ations. Small bilateral pleural effusions. Patchy bilateral groundglass opacities. Right basilar atel ectasis. Liver: Normal. Biliary/Gallbladder: Gallbladder is absent. No bile duct dilation. Pancreas: Fatty atrophy Spleen: Normal. Adrenals:Small right adrenal adenoma. Kidneys: Bilateral atrophy. Multiple bilateral exophytic cysts measuring up to 7.5 cm on the right. H yperdense right lower pole lesion, likely hemorrhagic or proteinaceous cyst. GI tract: No small or large bowel dilation. The tip of the appendix is dilated to 11 mm, which is a c hronic finding, no surrounding inflammatory change. Diverticulosis without diverticulitis. Mesentery/Peritoneum: Small volume ascites. No mass or free air. Retroperitoneum: No mass. Atherosclerotic abdominal aortic and/or arterial calcifications. Pelvis: Pelvic organs are within normal limits. Soft Tissues: Diffuse severe body wall edema. Bones: No acute osseous finding. Uncomplicated appearing partially visualized left femoral fixation hardware IMPRESSION: Mild pulmonary edema. Small bilateral pleural effusions. Small volume ascites. Severe body wall edema. Reviewed, dictated and finalized at location K. PRESSER
--- NOTE | ~2023-11-11 | XR_ITS ---
EXAMINATION: XR chest 1V portable Exam Date/Time: 11/17/2023 15:15 LITHOPRESS OPERATOR HISTORY: worsening SOB Comparison: 11/16/2023. RESULT: Lines, tubes, and devices: Right IJ dialysis catheter remains in stable and good position. Lungs and pleura: Slightly decreased opacification in the right upper lung likely secondary to posit ion change. Some increased streaky opacities in the right lung base. Bilateral costophrenic angle lashonda nting. Stable left pulmonary opacities. Cardiomediastinal silhouette: Stable. Other: No acute osseous or upper abdominal finding. IMPRESSION: Increasing streaky opacities in the right lung base. Otherwise no significant change in the pulmonary opacities, likely representing edema or infection. Small bilateral effusions. Reviewed, dictated and finalized at location K. OPRESS OPERATOR IMPRESSION: Increasing streaky opacities in the right lung base. Otherwise no significant c hange in the pulmonary opacities, likely representing edema or infection. Small bilateral effusions.
--- NOTE | 2023-11-11 16:20 | ECG_ITS ---
Measurements Intervals [place] Rate: 84 P: [place]: 0 QRS: -1 QRSD: 110 T: 29 QT: 404 QTc: 479 Interpretive Statements ATRIAL FIBRILLATION ANTEROSEPTAL INFARCT, AGE INDETERMINATE BORDERLINE ST-T WAVE ABNORMALITY- INF/LAT LEADS BASELINE ARTIFACT- I, II, III, AVR, AVL, AVF, V1, V3-V6 ABNORMAL ECG COMPARED TO ECG 10/30/2023 09:28:47 NO SIGNIFICANT CHANGES Electronically Signed On 11-11-2023 21:19:40 TENSILE TESTER by Raghav Robins D.O.
[2023-11-11 16:28] LABS: Basophils Absolute Auto 0.1 K/mm3 (0.0-0.1); Basophils Percent Auto 0.7 % (0.2-1.2); Eosinophils Absolute Auto 0.3 K/mm3 (0-0.3); Eosinophils Percent Auto 2.3 % (0-4.4); Hematocrit 34.6 % (42.0-52.0); Hemoglobin 10.2 g/dL (14.0-18.0); Immature Granulocyte Absolute 0.06 K/mm3 (0.00-0.031); Immature Granulocyte Percent A 0.5 % (0-0.5); Lymphocytes Absolute Auto 1.37 K/mm3 (0.9-3.2); Lymphocytes Percent Auto 12.3 % (18.3-44.2); Mean Corpuscular HGB Conc 29.5 g/dl (32-36); Mean Corpuscular Hemoglobin 30.2 pg (26-34); Mean Corpuscular Volume 102.4 fl (80-100); Mean Platelet Volume 10.8 fl (7.4-10.4); Monocytes Absolute Auto 0.8 K/mm3 (0.1-0.6); Monocytes Percent Auto 6.8 % (2.6-8.5); Neutrophils Absolute Auto 8.6 K/mm3 (1.3-6.7); Neutrophils Percent Auto 77.4 % (45.5-73.1); Platelet Count Result 307 k/mm3 (150-375); Red Blood Count 3.38 M/mm3 (4.6-6.20); Red Cell Distribution Width 16.7 % (11.5-14.5); White Blood Count 11.1 K/mm3 (4.5-10.0)
[2023-11-11 16:38] LABS: INR 3.2; Prothrombin Time 35.5 Seconds (11.1-14.7)
[2023-11-11 16:38] LABS: Alanine Aminotransferase 11 U/L (6-50); Albumin Level 3.1 g/dL (3.5-5.1); Alkaline Phosphatase 78 U/L (38-126); Anion Gap 13 mmol/L (8-16); Aspartate Amino Transferase 20 U/L (17-59); Bilirubin,Total 0.4 mg/dL (0.2-1.3); Blood Urea Nitrogen 59 mg/dL (9-20); Calcium 8.1 mg/dL (8.4-10.2); Carbon Dioxide 25 mmol/L (22-30); Chloride 103 mmol/L (98-107); Estimated CRCL calculation 23 ml/min; Estimated Glomerular Filt Rate 17; Glucose 192 mg/dL (65-110); Potassium 3.6 mmol/L (3.4-5.0); Sodium 141 mmol/L (137-145)
[2023-11-11 16:39] LABS: Partial Thromboplastin Time 54.7 SECONDS (22.3-36.8)
[2023-11-11 16:58] LABS: Anisocytosis 1+ (NORMAL); Platelet Estimate Adequate (Adequate)
[2023-11-11 16:59] LABS: Ovalocytes 1+ (NORMAL); Schistocytes None Seen (NORMAL)
--- NOTE | 2023-11-11 17:04 | ED.SOB ---
HPI - SOB/Dyspnea General Chief Complaint: Shortness of Breath/Dyspnea Stated Complaint: SOB Time Seen by Provider: 11/11/23 16:02 History of Present Illness HPI Narrative: Patient is a 78-year-old male with history of CKD, CHF, diabetes, hypothyroidism presenting with shortness of breath. Patient was just discharged from this facility yesterday after being admitted for colitis and heart failure complicated by CKD. States that today he was breathing faster than normal and he felt short of breath so they sent him in for evaluation. States that he does not feel much different from when he left yesterday. His abdomen feels slightly more distended but he denies any new pain. His legs continue to be swollen. No fevers or cough. No vomiting. Related Data Home Medications Medication Instructions Recorded Confirmed clopidogrel 75 mg tablet 75 mg PO DAILY 04/12/21 11/12/23 isosorbide mononitrate 120 mg 120 mg PO DAILY 04/12/21 11/12/23 tablet,extended release 24 hr acetaminophen 325 mg tablet 650 mg PO BID PRN Pain (Scale 01/27/22 11/12/23 Score 1-3) alirocumab 150 mg/mL subcutaneous 150 mg subcut [id number] 01/27/22 11/12/23 pen injector (Praluent Pen) amiodarone 200 mg tablet 200 mg PO DAILY 01/27/22 11/12/23 hydralazine 100 mg tablet 50 mg PO TID 01/27/22 11/12/23 levothyroxine 112 mcg tablet 100 mcg PO DAILY 01/27/22 11/12/23 (Euthyrox) losartan 50 mg tablet 25 mg PO DAILY 01/27/22 11/12/23 pantoprazole 40 mg tablet,delayed 40 mg PO DAILY 01/27/22 11/12/23 release ferrous sulfate 325 mg (65 mg 325 mg PO DAILY 02/17/23 11/12/23 iron) tablet nitroglycerin 0.4 mg sublingual 0.4 mg sublingual Q5M PRN Chest 02/17/23 11/12/23 tablet Pain doxazosin 2 mg tablet 2 mg PO QHS 09/11/23 11/12/23 fluticasone propionate 50 1 spray intranasal DAILY 09/11/23 11/12/23 mcg/actuation nasal spray,suspension pilocarpine HCl 5 mg tablet 5 mg PO TID 09/11/23 11/12/23 Lactobacillus 1 cap PO BID 09/17/23 11/12/23 acidophilus-Bifidobac.animalis 2.5 billion cell capsule (Daily Probiotic) ascorbic acid (vitamin C) 1,000 mg 1 g PO DAILY 09/17/23 11/12/23 tablet potassium chloride 20 mEq 20 meq PO DAILY 09/17/23 11/12/23 tablet,extended release(part/cryst) calcium 500 mg tablet 500 mg PO BID 10/29/23 11/12/23 ondansetron 8 mg disintegrating 4 mg PO TID PRN Nausea And Vomiting 10/29/23 11/12/23 tablet saliva substitute combo no.9 15 ml mucous membrane QID PRN Dry 10/29/23 11/12/23 (Biotene Dry Mouth Oral Rinse Mouth mouthwash) Allergies Allergy/AdvReac Type Severity Reaction Status Date / Time sitagliptin Allergy Unknown Verified 11/02/23 13:57 exenatide [From [place]] AdvReac Gastrointestinal Verified 11/02/23 13:57 Upset Xvrzzyy-CCS-ZnC Reductase AdvReac Cramping Verified 11/02/23 13:57 Inhibitor of the [Ysrcwof-Dwp-Ijt Reductase Muscles Inhibitor] Review of Systems Review of Systems: All systems reviewed & are unremarkable except as noted in HPI and below PMFSH Past Medical History Medical History Aortic stenosis, mild Atrial fibrillation Chronic anticoagulation Chronic kidney disease, stage 4 (severe) Combined systolic and diastolic congestive heart failure He follows with Dr. Wheeler [facility]. Echo, Oct: EF of 20-25%. Mid and anterior lateral wall, mid anterior septal wall, apex is akinetic. Basal anterior lateral wall, basal anteroseptal wall, inferior septum, mid inferior wall, mid anterior wall is hypokinetic. Coronary artery disease Hypertension Hypothyroidism Insulin dependent type 2 diabetes mellitus Ischemic colitis Myocardial infarct, old Obstructive sleep apnea The patient denies ever having a sleep study or being told he has sleep apnea Pulmonary hypertension Surgical History Surgical History History of cholecystectomy History of open reduction and
[2023-11-11 17:36] LABS: Alanine Aminotransferase 12 U/L (6-50); Albumin Level 3.3 g/dL (3.5-5.1); Alkaline Phosphatase 78 U/L (38-126); Anion Gap 14 mmol/L (8-16); Aspartate Amino Transferase 21 U/L (17-59); Bilirubin,Total 0.5 mg/dL (0.2-1.3); Blood Urea Nitrogen 59 mg/dL (9-20); Calcium 8.2 mg/dL (8.4-10.2); Carbon Dioxide 23 mmol/L (22-30); Chloride 104 mmol/L (98-107); Estimated CRCL calculation 22 ml/min; Estimated Glomerular Filt Rate 16; Glucose 195 mg/dL (65-110); Lipase 47 U/L (23-300); Magnesium 2.7 mg/dL (1.6-2.3); Potassium 3.7 mmol/L (3.4-5.0); Sodium 141 mmol/L (137-145)
[2023-11-11 17:53] LABS: NT Pro B Type Natriuretic Pept > 30000 pg/mL (19.9-100); Troponin I 0.097 ng/mL (0.000-0.034)
--- NOTE | 2023-11-11 18:44 | PM.IMHP ---
H&P: HPI History of Present Illness Date/Time: 11/11/23 18:44 Chief Complaint: SOB Narrative: 78 y/o M presents here with acute/chronic SOB, increased BLE edema, and abdominal swelling/distention with PMH of aortic stenosis, chronic atrial fibrillation on chronic anticoagulation, CKD stage 4, CHF (systolic/diastolic, last EF 20-25% on 10/2023), CAD, HTN, hypothyroidism, DM 2, ischemic colitis, [place], EILEEN, and pulmonary hypertension. Patient presents here today be EMS from [facility] (currently there for rehab) with complaints of SOB, BLE edema, early satiety, and abdominal swelling. Worsened over the last 24 hours. Swelling worsened to the point where they feel too tight to walk on and move per patient's narrative. Patient reports symptoms are worse than last week. He is continuing to experience diarrhea, 2 today and loose (not watery). Patient was recently admitted here from 10/28-11/10 for diarrhea, CT showed descending colitis, C diff negative, treated with antibiotics, colonoscopy done on 11/02 which showed ischemic colitis with diverticulosis, JOSE F superimposed on CKD with creatinine of 3.5 upon presentation (previously 2.4-2.9 in August), creatinine improved with holding diuretic and later resumed but creatinine worsened again, Nephrology and Cardiology had been consulted (see consultation notes), pressures were soft through admission and patient was started on midodrine which was later discontinued during his stay and discharged normotensive. Patient completed the antibiotic course before discharge and plan to resume half dose of Bumex and continue to monitor renal function. VS at arrival: Afebrile, HR 84, RR 20, BP 111/95 (later 87/55), and O2 sat 96% on room air. Workup today showed mild leukocytosis with a WBC of 11.1 (discharged with WBC of 9.9 on 11/10), stable anemia with hemoglobin 10.2, creatinine of 3.6 (3.8 at discharge), troponin 0.097 (reduced compared to prior of 1.780 on 10/30), BNP increased compared to prior and currently >30,000 (38492 on 10/30), and albumin slightly reduced at 3.3. CT of the abdomen and pelvis without contrast showed mild pulmonary edema, small bilateral pleural effusions, small volume ascites, and severe body wall edema. Previous CT of the abdomen and pelvis on 10/28 showed colitis of the descending colon, cardiomegaly, with mild pulmonary edema in the visualized lung bases. Review of Systems Review of Systems: All systems reviewed & are unremarkable except as noted in HPI and below [facility] Past Medical History Medical History Aortic stenosis, mild Atrial fibrillation Chronic anticoagulation Chronic kidney disease, stage 4 (severe) Combined systolic and diastolic congestive heart failure He follows with Dr. Wheeler [facility]. Echo, Oct: EF of 20-25%. Mid and anterior lateral wall, mid anterior septal wall, apex is akinetic. Basal anterior lateral wall, basal anteroseptal wall, inferior septum, mid inferior wall, mid anterior wall is hypokinetic. Coronary artery disease Hypertension Hypothyroidism Insulin dependent type 2 diabetes mellitus Ischemic colitis Myocardial infarct, old Obstructive sleep apnea The patient denies ever having a sleep study or being told he has sleep apnea Pulmonary hypertension Surgical History Surgical History History of cholecystectomy History of open reduction and internal fixation (ORIF) procedure Repair of left foot and femur fractures. History of percutaneous coronary intervention Family History Family History Father Cerebrovascular accident Diabetes mellitus Mother Diabetes mellitus Social History Social History Social History: Healthcare power of business attorney: Bhanu Yadav, son. Code status: DNR/DNI (however patient reports he wou
[2023-11-11] MEDS: MIDODRINE HCL 10 MG TABLET PO (19:20)
[2023-11-11] MEDS: ALBUMIN HUMAN 25% 25 GM/100 ML 100 ML IVPB ×2 (19:20→23:22)
--- NOTE | 2023-11-11 19:30 | ECG_ITS ---
Measurements Intervals [place] Rate: 75 P: [place]: 0 QRS: 32 QRSD: 113 T: 29 QT: 450 QTc: 506 Interpretive Statements ATRIAL FIBRILLATION LOW QRS VOLTAGE IN DIFFUSE LEADS ANTERIOR INFARCT, AGE INDETERMINATE ABNORMAL ECG COMPARED TO ECG 11/11/2023 16:08:19 NO SIGNIFICANT CHANGES Electronically Signed On 11-11-2023 21:21:59 CAN REPAIRER by Raghav Robins D.O.
[2023-11-11 20:11] LABS: Troponin I 0.091 ng/mL (0.000-0.034)
--- NOTE | 2023-11-11 21:13 | PC.NURSE ---
Insulin aspart 2100 dose held. Glucose 185.
[2023-11-11 21:16] LABS: Glucose Point of Care 185 mg/dl (65-105)
[2023-11-11] MEDS: FUROSEMIDE INJ 40 MG/4 ML VIAL IV PUSH (21:22)
--- NOTE | 2023-11-11 23:26 | ADMGEN ---
This patient, Nigel Wang, was admitted to IMU Room 205-01 at 2318. Patient/family oriented to hospital policies and general routines including ID bracelet, bed and alarms, visiting hours, pain management, procedures, bathroom and other care routines, personal items, smoking policy, room service/diet, and visiting hours. Information on how to activate the Rapid Response Team has been discussed. Patient/Family are encouraged to report perceived risks to care and to ask questions if they do not understand what they are told or what they should do.
[2023-11-11 23:30] LABS: Creatinine Urine 186.3 mg/dL
[2023-11-11 23:44] LABS: Sodium Urine Random 13 meq/L
[2023-11-11 23:52] LABS: Troponin I 0.087 ng/mL (0.000-0.034)
[2023-11-11 23:58] LABS: Amorphous Sediment Urine Present; Appearance Urine Cloudy (Clear); Bacteria Urine Rare /hpf; Bilirubin Urine Negative (Negative); Blood Urine Negative (Negative); Budding Yeast Urine Present /hpf; Color Urine Yellow (Yellow); Glucose Urine UA Negative (Negative); Ketones Urine Trace mg/dL (Negative); Leukocyte Esterase Ur 2+ LEU/UL (Negative); Need Manual Microscopic Reviewed; Nitrate Urine Negative (Negative); Protein Urine 1+ mg/dL (Negative); RBC Urine 0-2 /hpf (0-2); Specific Grav Ur 1.017 (1.001-1.035); Squamous Epithelial Cell Urine Occasional /hpf (Few); Urobilinogen Urine 0.2 mg/dL (<2.0)
[2023-11-12] VITALS (18 sets, daily range): BP systolic 92–108; BP diastolic 48–74; PULSE 69–112; RESP 16–22; TEMP 36.4–36.8; O2SAT 92–98
[2023-11-12] LABS: Add Urine Microscopic? YES
[2023-11-12 04:17] LABS: Basophils Absolute Auto 0.1 K/mm3 (0.0-0.1); Basophils Percent Auto 0.7 % (0.2-1.2); Eosinophils Absolute Auto 0.2 K/mm3 (0-0.3); Eosinophils Percent Auto 2.6 % (0-4.4); Hematocrit 32.2 % (42.0-52.0); Hemoglobin 9.6 g/dL (14.0-18.0); Immature Granulocyte Absolute 0.04 K/mm3 (0.00-0.031); Immature Granulocyte Percent A 0.4 % (0-0.5); Lymphocytes Absolute Auto 1.39 K/mm3 (0.9-3.2); Lymphocytes Percent Auto 15.3 % (18.3-44.2); Mean Corpuscular HGB Conc 29.8 g/dl (32-36); Mean Corpuscular Hemoglobin 30.3 pg (26-34); Mean Corpuscular Volume 101.6 fl (80-100); Mean Platelet Volume 10.9 fl (7.4-10.4); Monocytes Absolute Auto 0.7 K/mm3 (0.1-0.6); Monocytes Percent Auto 7.9 % (2.6-8.5); Neutrophils Absolute Auto 6.6 K/mm3 (1.3-6.7); Neutrophils Percent Auto 73.1 % (45.5-73.1); Platelet Count Result 264 k/mm3 (150-375); Red Blood Count 3.17 M/mm3 (4.6-6.20); Red Cell Distribution Width 16.8 % (11.5-14.5); White Blood Count 9.1 K/mm3 (4.5-10.0)
[2023-11-12 04:35] LABS: Alanine Aminotransferase 10 U/L (6-50); Albumin Level 3.4 g/dL (3.5-5.1); Alkaline Phosphatase 64 U/L (38-126); Anion Gap 11 mmol/L (8-16); Aspartate Amino Transferase 20 U/L (17-59); Bilirubin,Total 0.4 mg/dL (0.2-1.3); Blood Urea Nitrogen 59 mg/dL (9-20); Calcium 8.1 mg/dL (8.4-10.2); Carbon Dioxide 25 mmol/L (22-30); Chloride 105 mmol/L (98-107); Estimated CRCL calculation 25 ml/min; Estimated Glomerular Filt Rate 19; Glucose 174 mg/dL (65-110); Potassium 3.5 mmol/L (3.4-5.0); Sodium 141 mmol/L (137-145)
[2023-11-12 04:37] LABS: Hemoglobin A1C 7.2 % (<5.7)
[2023-11-12 04:57] LABS: Platelet Estimate Adequate (Adequate)
[2023-11-12 04:58] LABS: Anisocytosis 1+ (NORMAL); Ovalocytes 1+ (NORMAL); Poikilocytosis 1+ (NORMAL); Schistocytes None Seen (NORMAL); Tear Drop Cells 1+ (NORMAL)
[2023-11-12] MEDS: ALBUMIN HUMAN 25% 25 GM/100 ML 100 ML IVPB ×2 (05:36→12:29)
[2023-11-12] MEDS: LEVOTHYROXINE SODIUM 100 MCG TABLET PO (05:37)
[2023-11-12 08:38] LABS: Glucose Point of Care 162 mg/dl (65-105)
[2023-11-12] MEDS: CLOPIDOGREL BISULFATE 75 MG TABLET PO (09:15)
[2023-11-12] MEDS: METOPROLOL SUCCINATE EXT REL 25 MG TABCR PO (09:15)
--- NOTE | 2023-11-12 11:44 | PM.CNCAR ---
Assessment and Plan Assessment and plan (1) Coronary artery disease: Code(s): I25.10 - Atherosclerotic heart disease of [place] coronary artery without angina pectoris Status: Chronic (2) Atrial fibrillation: Qualifiers: Atrial fibrillation type: paroxysmal Qualified Code(s): I48.0 - Paroxysmal atrial fibrillation Code(s): I48.91 - Unspecified atrial fibrillation Status: Acute (3) CHF (congestive heart failure): Qualifiers: Heart failure chronicity: unspecified Heart failure type: unspecified Qualified Code(s): I50.9 - Heart failure, unspecified Code(s): I50.9 - Heart failure, unspecified Status: Acute Plan This is a 78-year-old man with chronic ischemic heart disease left ventricular systolic dysfunction and atrial fibrillation is his cardiac substrate. He was recently in the hospital with some abdominal pain and colitis and his vasodilators have been placed on hold as well as his diuretics. His baseline dosage of Bumex is 2.5 mg daily. He also had been taking 50 mg 3 times daily of hydralazine along with losartan at a modest dosage. He is now taking midodrine. Having discontinued his heart failure medications and starting a vasoconstrictor it is not unexpected that he feels more short of breath. He is currently not hypotensive. I am going to stop the midodrine and resume both his hydralazine and isosorbide at reduced dosages for the time being. I will resume his Bumex at 2 mg daily given his poor GFR he will unlikely have any restored response to a lower dosage. Will follow him with you during this hospitalization however his long-term prognosis is obviously quite limited given his poor cardiac status as well as his very poor renal function all confounded by morbid obesity. Jono Davies MD [facility] History of Present Illness History of Present Illness Consult date/time: 11/12/23 11:44 Reason For Visit: CHF Exacerbation Narrative: This is a 78-year-old man with chronic coronary artery disease, left ventricular systolic dysfunction, chronic atrial fibrillation and chronic renal failure being seen at the request of the hospitalist because of shortness of breath and apparent CHF exacerbation. The patient is not known to me prior to this encounter although he was just discharged from this hospital and earlier in the month by partners have seen him in consultation. The patient was seen this morning and the chart was reviewed. In summary this is a man with chronic coronary artery disease and left ventricular systolic dysfunction follows with a naphthalene operator helper not on staff at [facility]. He was seen in this hospital by my partners a couple of weeks ago he was in the hospital here but mainly with abdominal pain and colitis. He was felt to have ischemic colitis he was treated medically and he did improve. The patient has poor renal function with a creatinine that runs in the 3.5-3.9 range. He in was somewhat hypotensive at times when he was in the hospital. His heart failure medication including his hydralazine and isosorbide as well as losartan were discontinued. He was kept on a modest dose of metoprolol succinate for AFib rate control. He was then also placed on midodrine for low blood pressure. From what I saw in the chart during the hospital stay he was not symptomatic with hypotensive. He was discharged on Sunday of this past weekend and was at a local [facility]dc he was noted to be tachypneic and so he was sent back to the emergency room. His vital signs were stable he was not hypoxemic but he was admitted to the hospital for a CHF exacerbation. Speak to physicians who saw him on Sunday they indicate he looks clinically no different than at the time of his discharge. Review of Systems Constitutional: Constitutional: Reports lethargy Eyes: Eyes: Reports no additional eye complaints ENT: Reports system reviewed and no additional complaints, except as do
--- NOTE | 2023-11-12 11:50 | PM.CNNEP ---
Assessment and Plan Assessment and plan (1) Chronic kidney disease, stage 4 (severe): Code(s): N18.4 - Chronic kidney disease, stage 4 (severe) Status: Chronic Assessment and Plan: creatinine had been running ~ 2ish [place] in 2021 due to HTN, DM, CHF/cardiomyopathy, vascular disease, EILEEN/pulmonary hypertension, and age-related change however, with recent last hospitalizations over the last several months, his creatinine has been running higher (in the 3ish range) due to diuresis and need for higher dose of diuretics to maintain his volume status suspect some CKD progression versus the fact that he needs a higher creatinine to achieve relative euvolemia his lower creatinine (2.9mg/dl on August 2023) may have been dilutional since he was volume overloaded at that time -- however, he was discharged on a higher dose of diuretics... creatinine 3.2mg/dl on admission resumed on oral diuretic therapy follow trend of labs and UOP (2) Acute exacerbation of CHF (congestive heart failure): Qualifiers: Heart failure type: combined systolic and diastolic Qualified Code(s): I50.43 - Acute on chronic combined systolic (congestive) and diastolic (congestive) heart failure Code(s): I50.9 - Heart failure, unspecified Status: Acute Assessment and Plan: as noted by admission imaging and exam noted depressed EF opf 25-30% on last Echo Cardiology recommendations noted resumed on diuretic therapy follow I/Os, daily weights, and respiratory status (3) Anasarca: Code(s): R60.1 - Generalized edema Status: Chronic Assessment and Plan: due to chronic systolic heart failure and CKD progression coupled with hypoalbuminemia resumed on oral diuretics on admission but will likely need IV diuresis in the past, he has required loop diuretic gtt monitor volume status with diuresis (4) Hypertension: Qualifiers: Hypertension type: primary hypertension Qualified Code(s): I10 - Essential (primary) hypertension Code(s): I10 - Essential (primary) hypertension Status: Chronic Assessment and Plan: despite history, BP running on the low/soft side BP medications resumed with parameters was previously on midodrine follow trend of hemodynamics (5) Atrial fibrillation: Qualifiers: Atrial fibrillation type: paroxysmal Qualified Code(s): I48.0 - Paroxysmal atrial fibrillation Code(s): I48.91 - Unspecified atrial fibrillation Status: Chronic Assessment and Plan: rate control strategy on anticoagulation with warfarin follow INR (6) Anemia: Code(s): D64.9 - Anemia, unspecified Status: Chronic Assessment and Plan: related to CKD follow trend of H/H consider JINNY if needed (7) Type 2 diabetes mellitus: Qualifiers: Diabetes mellitus superintendent terminal insulin use: with group home use Diabetes mellitus complication status: with circulatory complication Diabetes mellitus complication detail: with other circulatory complications Qualified Code(s): E11.59 - Type 2 diabetes mellitus with other circulatory complications; Z79.4 - senior care (current) use of insulin Code(s): E11.9 - Type 2 diabetes mellitus without complications Status: Chronic Assessment and Plan: follow accu-cheks glycemic control per hospitalists I will continue follow the patient with you while he remains hospitalized and make further recommendations as needed. Thank you for allowing me to participate in care this patient. History of Present Illness Reason for Consult Consult date: 11/12/23 Reason for consult: chronic renal failure Chief Complaint Chief complaint: CHF Exacerbation History of Present Illness Narrative: The patient is a 78-year-old male with an extensive past medical history as outlined below who presented to [facility] Emergency Room for further evaluation of
--- NOTE | 2023-11-12 11:50 | P.CONNP_ITS ---
Assessment and Plan Assessment and plan (1) Chronic kidney disease, stage 4 (severe): Code(s): N18.4 - Chronic kidney disease, stage 4 (severe) Status: Chronic Assessment and Plan: * creatinine had been running ~ 2ish [place] in 2021 * due to HTN, DM, CHF/cardiomyopathy, vascular disease, EILEEN/pulmonary hypertension, and age-related change * however, with recent last hospitalizations over the last several months, his creatinine has been running higher (in the 3ish range) due to diuresis and need for higher dose of diuretics to maintain his volume status * suspect some CKD progression versus the fact that he needs a higher creatinine to achieve relative euvolemia * his lower creatinine (2.9mg/dl on August 2023) may have been dilutional since he was volume overloaded at that time -- however, he was discharged on a higher dose of diuretics... * creatinine 3.2mg/dl on admission * resumed on oral diuretic therapy * follow trend of labs and UOP (2) Acute exacerbation of CHF (congestive heart failure): Qualifiers: Heart failure type: combined systolic and diastolic Qualified Code(s): I50.43 - Acute on chronic combined systolic (congestive) and diastolic (congestive) heart failure Code(s): I50.9 - Heart failure, unspecified Status: Acute Assessment and Plan: * as noted by admission imaging and exam * noted depressed EF opf 25-30% on last Echo * Cardiology recommendations noted * resumed on diuretic therapy * follow I/Os, daily weights, and respiratory status (3) Anasarca: Code(s): R60.1 - Generalized edema Status: Chronic Assessment and Plan: * due to chronic systolic heart failure and CKD progression coupled with hypoalbuminemia * resumed on oral diuretics on admission but will likely need IV diuresis * in the past, he has required loop diuretic gtt * monitor volume status with diuresis (4) Hypertension: Qualifiers: Hypertension type: primary hypertension Qualified Code(s): I10 - Essential (primary) hypertension Code(s): I10 - Essential (primary) hypertension Status: Chronic Assessment and Plan: * despite history, BP running on the low/soft side * BP medications resumed with parameters * was previously on midodrine * follow trend of hemodynamics (5) Atrial fibrillation: Qualifiers: Atrial fibrillation type: paroxysmal Qualified Code(s): I48.0 - Paroxysmal atrial fibrillation Code(s): I48.91 - Unspecified atrial fibrillation Status: Chronic Assessment and Plan: * rate control strategy * on anticoagulation with warfarin * follow INR (6) Anemia: Code(s): D64.9 - Anemia, unspecified Status: Chronic Assessment and Plan: * related to CKD * follow trend of H/H * consider JINNY if needed (7) Type 2 diabetes mellitus: Qualifiers: Diabetes mellitus intermediate card tender insulin use: with intermediate card tender use Diabetes mellitus complication status: with circulatory complication Diabetes mellitus complication detail: with other circulatory complications Qualified Code(s): E11.59 - Type 2 diabetes mellitus with other circulatory complications; Z79.4 - [facility] (current) use of insulin Code(s): E11.9 - Type 2 diabetes mellitus without complications Status: Chronic Assessment and Plan: * follow accu-cheks * glycemic control per hospitalists I will continue follow the patient with you while he remains hospitalized and make further recommendations as needed.
[2023-11-12 11:58] LABS: Glucose Point of Care 194 mg/dl (65-105)
[2023-11-12] MEDS: BUMETANIDE 1 MG TABLET 2 MG PO (12:29)
[2023-11-12] MEDS: hydrALAZINE HCL 25 MG TABLET PO ×3 (14:06→23:50)
--- NOTE | 2023-11-12 16:18 | PM.IMPN ---
Progress Note: A&P Assessment and Plan (1) Acute exacerbation of CHF (congestive heart failure): Qualifiers: Heart failure type: combined systolic and diastolic Qualified Code(s): I50.43 - Acute on chronic combined systolic (congestive) and diastolic (congestive) heart failure Code(s): I50.9 - Heart failure, unspecified Status: Acute Assessment and Plan: Patient presents back to the ED for SOB and right leg pain and edema. His condition is unchanged from discharge. BNP 30K CT abdomen/pelvis non-con (11/11/23): Mild pulmonary edema, small bilateral pleural effusions, small volume ascites, severe body wall edema. He has JOSE F superimposed on CKD. Ehco showing EF20-25%, reduced RV systolic function and akinetic mid anterolateral wall, mid anteroseptal wall and apex. Other areas are hypokinetic. Moderate MR and TR. Trop elevated but trending down from last admission. Received midodrine and Albumin in ED and one dose lasix IV once admitted. Fluid overload related to his renal failure and CHF and probably a right sided component. Oral Bumex started. Hydralazine and Imdur resumed but doubt he will be able to tolerate this. Apprecaite Cardilogy input. (2) Chronic kidney disease, stage 4 (severe): Code(s): N18.4 - Chronic kidney disease, stage 4 (severe) Status: Chronic Assessment and Plan: Creatinine 2.4-2.9 in August of 2023 -recent JOSE F superimposed on CKD with presentation on 10/28, initial creatinine 3.5. -US of kidneys/retroperitoneum (10/29) showed normal sized right kidney, no hydronephrosis. Left kidney not visualized due to body habitus. -CT abdomen/pelvis (11/11) showed bilateral atrophy of the kidneys with multiple bilateral exophytic cyst measuring up to 7.5 cm on the right. Hyperdense right lower pole lesion, likely hemorrhagic or proteinaceous cyst. -consult Nephrology -monitor I&Os -Albumin was 3-3.3 and given 3 doses of albumin for BP support (3) Hypertension: Qualifiers: Hypertension type: primary hypertension Qualified Code(s): I10 - Essential (primary) hypertension Code(s): I10 - Essential (primary) hypertension Status: Chronic Assessment and Plan: -continuing home metoprolol, previously tolerated -BP soft, all other home medications held (i.e. Losartan, hydralazine, and Imdur) -as above (4) Insulin dependent type 2 diabetes mellitus: Code(s): E11.9 - Type 2 diabetes mellitus without complications; Z79.4 - director long term care (current) use of insulin Status: Acute Assessment and Plan: -Hypoglycemia protocol -POC blood glucose ACHS -home medication resumed - lantus 5u HS -correct regimen ordered - high dose TIDWM and HS, dosing based off BMI (40.5) -A1C 7.2 (5) Atrial fibrillation: Qualifiers: Atrial fibrillation type: paroxysmal Qualified Code(s): I48.0 - Paroxysmal atrial fibrillation Code(s): I48.91 - Unspecified atrial fibrillation Status: Acute Assessment and Plan: -EKG, initial: Atrial fibrillation, anterior septal IN of indeterminate age, when compared to previous IN finding now present. -troponin (10/30): 1.830-> 1.7-> 1.780 -troponin (11/11): 0.097 and trending down from last admission -continue home metoprolol, Plavix, and warfarin; resume AMiodarone -tele monitoring (6) Hypothyroidism: Qualifiers: Hypothyroidism type: unspecified Qualified Code(s): E03.9 - Hypothyroidism, unspecified Code(s): E03.9 - Hypothyroidism, unspecified Status: Acute Assessment and Plan: -TSH 9.960, T3 0.56, and T4 1.52 on 10/30. -continue home Synthroid -will require repeat levels as outpatient Plan DVT Prophylaxis: Continue warfarin. Daily INR Code Status: DNR Subjective Date/time seen: 11/12/23 16:18 Interval history: 78yo male with s/d CHF, CAD and DM who returns for feeling short of breath and leg edema. He was having pain and
[2023-11-12 16:23] LABS: Glucose Point of Care 202 mg/dl (65-105)
[2023-11-12] MEDS: ONDANSETRON HCL ODT 4 MG TABLET PO (17:23)
[2023-11-12] MEDS: WARFARIN (*PBKC) 4 MG TABLET PO (18:36)
[2023-11-12 20:03] LABS: Glucose Point of Care 237 mg/dl (65-105)
[2023-11-12] MEDS: INSULIN GLARGINE (*BKC) 100 UNITS/ML SUB-Q (20:40)
[2023-11-12] MEDS: INSULIN ASPART (*BKC) 100 UNITS/ML SUB-Q (20:41)
[2023-11-12] MEDS: TOLNAFTATE 1% POWDER 45 GM BTL 1 APPLIC TOPICAL (20:42)
[2023-11-13] VITALS (20 sets, daily range): BP systolic 91–109; BP diastolic 49–74; PULSE 85–103; RESP 16–20; TEMP 36.4–36.8; O2SAT 88–100
[2023-11-13] MEDS: ACETAMINOPHEN 325 MG TABLET 650 MG PO (01:37)
[2023-11-13 04:55] LABS: Basophils Absolute Auto 0.1 K/mm3 (0.0-0.1); Basophils Percent Auto 0.9 % (0.2-1.2); Eosinophils Absolute Auto 0.2 K/mm3 (0-0.3); Hematocrit 33.5 % (42.0-52.0); Hemoglobin 9.9 g/dL (14.0-18.0); Immature Granulocyte Absolute 0.07 K/mm3 (0.00-0.031); Immature Granulocyte Percent A 0.7 % (0-0.5); Lymphocytes Absolute Auto 1.84 K/mm3 (0.9-3.2); Lymphocytes Percent Auto 17.8 % (18.3-44.2); Mean Corpuscular HGB Conc 29.6 g/dl (32-36); Mean Corpuscular Hemoglobin 29.6 pg (26-34); Mean Corpuscular Volume 100.3 fl (80-100); Mean Platelet Volume 10.9 fl (7.4-10.4); Monocytes Absolute Auto 1.1 K/mm3 (0.1-0.6); Monocytes Percent Auto 10.2 % (2.6-8.5); Neutrophils Absolute Auto 7.1 K/mm3 (1.3-6.7); Neutrophils Percent Auto 68.4 % (45.5-73.1); Platelet Count Result 319 k/mm3 (150-375); Red Blood Count 3.34 M/mm3 (4.6-6.20); Red Cell Distribution Width 16.8 % (11.5-14.5); White Blood Count 10.4 K/mm3 (4.5-10.0)
[2023-11-13 05:06] LABS: INR 2.6; Prothrombin Time 30.1 Seconds (11.1-14.7)
[2023-11-13 05:08] LABS: Alanine Aminotransferase 11 U/L (6-50); Albumin Level 3.3 g/dL (3.5-5.1); Alkaline Phosphatase 63 U/L (38-126); Anion Gap 10 mmol/L (8-16); Aspartate Amino Transferase 20 U/L (17-59); Bilirubin,Total 0.5 mg/dL (0.2-1.3); Blood Urea Nitrogen 60 mg/dL (9-20); Calcium 8.1 mg/dL (8.4-10.2); Carbon Dioxide 26 mmol/L (22-30); Chloride 104 mmol/L (98-107); Estimated CRCL calculation 21 ml/min; Estimated Glomerular Filt Rate 15; Glucose 188 mg/dL (65-110); Magnesium 2.5 mg/dL (1.6-2.3); Phosphorus 4.8 mg/dL (2.5-4.5); Potassium 3.6 mmol/L (3.4-5.0); Sodium 140 mmol/L (137-145)
[2023-11-13] MEDS: LEVOTHYROXINE SODIUM 100 MCG TABLET PO (06:15)
[2023-11-13] MEDS: hydrALAZINE HCL 25 MG TABLET PO ×2 (06:16→12:43)
[2023-11-13 08:05] LABS: Glucose Point of Care 177 mg/dl (65-105)
[2023-11-13] MEDS: LIDOCAINE 5% PATCH 1 PATCH TRANSDERM (08:44)
[2023-11-13] MEDS: PANTOPRAZOLE 40 MG TABLET PO (08:45)
[2023-11-13] MEDS: FLUTICASONE PROPIONATE 0.05% NA SPR 16 GM BTL (*BKC) 1 SPRAY NASAL (08:45)
[2023-11-13] MEDS: TOLNAFTATE 1% POWDER 45 GM BTL 1 APPLIC TOPICAL ×2 (08:45→20:23)
[2023-11-13] MEDS: BUMETANIDE 1 MG TABLET 2 MG PO (08:45)
[2023-11-13] MEDS: AMIODARONE HCL 200 MG TABLET PO (08:45)
[2023-11-13] MEDS: CALCIUM CARBONATE (OSCAL) 500 MG TABLET PO ×2 (08:45→17:20)
[2023-11-13] MEDS: FERROUS SULFATE 325 MG TABLET DR BY MOUTH (08:45)
[2023-11-13] MEDS: CLOPIDOGREL BISULFATE 75 MG TABLET PO (08:46)
[2023-11-13] MEDS: ACIDOPHILUS/BULGARICUS CHEWABLE TABLET 1 TABLET BY MOUTH ×2 (08:46→17:20)
[2023-11-13] MEDS: ASCORBIC ACID 500 MG TABLET 1000 MG PO (08:46)
[2023-11-13] MEDS: allopurinoL 100 MG TABLET PO (08:46)
[2023-11-13] MEDS: Pilocarpine Hcl 5 mg tablet 5 EACH PO ×3 (08:47→17:21)
--- NOTE | 2023-11-13 09:52 | PCOTNOTE ---
Attempted OT evaluation, patient refuses stating, too sick and nausea right now. Will follow.
[2023-11-13] MEDS: ISOSORBIDE MONONITRATE 30 MG TAB.ER.24H PO (09:59)
[2023-11-13] MEDS: METOPROLOL SUCCINATE EXT REL 25 MG TABCR PO (09:59)
--- NOTE | 2023-11-13 10:01 | PM.PNNEP ---
Progress Note: A&P Assessment and Plan (1) Chronic kidney disease, stage 4 (severe): Code(s): N18.4 - Chronic kidney disease, stage 4 (severe) Status: Chronic Assessment and Plan: creatinine had been running ~ 2ish [place] in 2021 due to HTN, DM, CHF/cardiomyopathy, vascular disease, EILEEN/pulmonary hypertension, and age-related change however, with recent last hospitalizations over the last several months, his creatinine has been running higher (in the 3ish range) due to diuresis and need for higher dose of diuretics to maintain his volume status suspect some CKD progression versus the fact that he needs a higher creatinine to achieve relative euvolemia his lower creatinine (2.9mg/dl on August 2023) may have been dilutional since he was volume overloaded at that time -- however, he was discharged on a higher dose of diuretics... creatinine 3.2mg/dl on admission..creatinine rising with diuresis back on diuretic therapy follow trend of labs and UOP (2) Acute exacerbation of CHF (congestive heart failure): Qualifiers: Heart failure type: combined systolic and diastolic Qualified Code(s): I50.43 - Acute on chronic combined systolic (congestive) and diastolic (congestive) heart failure Code(s): I50.9 - Heart failure, unspecified Status: Acute Assessment and Plan: as noted by admission imaging and exam noted depressed EF opf 25-30% on last Echo Cardiology recommendations noted resumed on diuretic therapy follow I/Os, daily weights, and respiratory status (3) Anasarca: Code(s): R60.1 - Generalized edema Status: Chronic Assessment and Plan: due to chronic systolic heart failure and CKD progression coupled with hypoalbuminemia transitioned to IV diuretic therapy in the past, he has required loop diuretic gtt monitor volume status with diuresis (4) Hypertension: Qualifiers: Hypertension type: primary hypertension Qualified Code(s): I10 - Essential (primary) hypertension Code(s): I10 - Essential (primary) hypertension Status: Chronic Assessment and Plan: despite history, BP running on the low/soft side BP medications resumed with parameters was previously on midodrine follow trend of hemodynamics (5) Atrial fibrillation: Qualifiers: Atrial fibrillation type: paroxysmal Qualified Code(s): I48.0 - Paroxysmal atrial fibrillation Code(s): I48.91 - Unspecified atrial fibrillation Status: Chronic Assessment and Plan: rate control strategy on anticoagulation with warfarin follow INR (6) Anemia: Code(s): D64.9 - Anemia, unspecified Status: Chronic Assessment and Plan: related to CKD follow trend of H/H consider JINNY if needed (7) Type 2 diabetes mellitus: Qualifiers: Diabetes mellitus emt intermediate insulin use: with prison use Diabetes mellitus complication status: with circulatory complication Diabetes mellitus complication detail: with other circulatory complications Qualified Code(s): E11.59 - Type 2 diabetes mellitus with other circulatory complications; Z79.4 - [facility] (current) use of insulin Code(s): E11.9 - Type 2 diabetes mellitus without complications Status: Chronic Assessment and Plan: follow accu-cheks glycemic control per hospitalists Will continue to follow. Subjective Date/time seen: 11/13/23 10:01 Interval history: Follow-up for chronic kidney disease. No real significant change at the time of my visit; he is sleepy and somewhat difficult to arouse but was able to tell me that he still feels short of breath; does not appear the he had much diuresis in the last 24 hours (although documentation of I/Os not accurate); changed to IV bumex by Cardiology; no apparent distress noted. Exam Narrative: General: large elderly male in NAD Heart: IRRR, normal S1 and S2; no rub Nikky
--- NOTE | 2023-11-13 10:01 | P.PNNP_ITS ---
Progress Note: A&P Assessment and Plan (1) Chronic kidney disease, stage 4 (severe): Code(s): N18.4 - Chronic kidney disease, stage 4 (severe) Status: Chronic Assessment and Plan: * creatinine had been running ~ 2ish [place] in 2021 * due to HTN, DM, CHF/cardiomyopathy, vascular disease, EILEEN/pulmonary hypertension, and age-related change * however, with recent last hospitalizations over the last several months, his creatinine has been running higher (in the 3ish range) due to diuresis and need for higher dose of diuretics to maintain his volume status * suspect some CKD progression versus the fact that he needs a higher creatinine to achieve relative euvolemia * his lower creatinine (2.9mg/dl on August 2023) may have been dilutional since he was volume overloaded at that time -- however, he was discharged on a higher dose of diuretics... * creatinine 3.2mg/dl on admission..creatinine rising with diuresis * back on diuretic therapy * follow trend of labs and UOP (2) Acute exacerbation of CHF (congestive heart failure): Qualifiers: Heart failure type: combined systolic and diastolic Qualified Code(s): I50.43 - Acute on chronic combined systolic (congestive) and diastolic (congestive) heart failure Code(s): I50.9 - Heart failure, unspecified Status: Acute Assessment and Plan: * as noted by admission imaging and exam * noted depressed EF opf 25-30% on last Echo * Cardiology recommendations noted * resumed on diuretic therapy * follow I/Os, daily weights, and respiratory status (3) Anasarca: Code(s): R60.1 - Generalized edema Status: Chronic Assessment and Plan: * due to chronic systolic heart failure and CKD progression coupled with hypoalbuminemia * transitioned to IV diuretic therapy * in the past, he has required loop diuretic gtt * monitor volume status with diuresis (4) Hypertension: Qualifiers: Hypertension type: primary hypertension Qualified Code(s): I10 - Essential (primary) hypertension Code(s): I10 - Essential (primary) hypertension Status: Chronic Assessment and Plan: * despite history, BP running on the low/soft side * BP medications resumed with parameters * was previously on midodrine * follow trend of hemodynamics (5) Atrial fibrillation: Qualifiers: Atrial fibrillation type: paroxysmal Qualified Code(s): I48.0 - Paroxysmal atrial fibrillation Code(s): I48.91 - Unspecified atrial fibrillation Status: Chronic Assessment and Plan: * rate control strategy * on anticoagulation with warfarin * follow INR (6) Anemia: Code(s): D64.9 - Anemia, unspecified Status: Chronic Assessment and Plan: * related to CKD * follow trend of H/H * consider JINNY if needed (7) Type 2 diabetes mellitus: Qualifiers: Diabetes mellitus custodial insulin use: with custodial use Diabetes mellitus complication status: with circulatory complication Diabetes mellitus complication detail: with other circulatory complications Qualified Code(s): E11.59 - Type 2 diabetes mellitus with other circulatory complications; Z79.4 - snf (current) use of insulin Code(s): E11.9 - Type 2 diabetes mellitus without complications Status: Chronic Assessment and Plan: * follow accu-cheks * glycemic control per hospitalists Will continue to follow. Subjective Date/time seen: 11/13/23 10:01 Interval history: Follow-up for
--- NOTE | 2023-11-13 10:17 | PCPTNOTE ---
Attempted PT evaluation. RN reports pt refused OT. Pt asleep at this time. Will follow.
--- NOTE | 2023-11-13 10:46 | PM.PNCARD ---
Progress Note: A&P Assessment and Plan (1) Acute exacerbation of CHF (congestive heart failure): Qualifiers: Heart failure type: combined systolic and diastolic Qualified Code(s): I50.43 - Acute on chronic combined systolic (congestive) and diastolic (congestive) heart failure Code(s): I50.9 - Heart failure, unspecified Status: Acute Assessment and Plan: Remains volume overloaded. Although I/Os from yesterday are not completely accurately recorded, it does not appear that he had adequate diuresis yesterday. Will stop PO Bumex and start IV Bumex 2mg BID. Continue low dose Imdur and Hydralazine. (2) Coronary artery disease: Code(s): I25.10 - Atherosclerotic heart disease of [place] coronary artery without angina pectoris Status: Chronic Assessment and Plan: Continue Plavix, beta matt, Imdur. (3) Atrial fibrillation: Qualifiers: Atrial fibrillation type: paroxysmal Qualified Code(s): I48.0 - Paroxysmal atrial fibrillation Code(s): I48.91 - Unspecified atrial fibrillation Status: Acute Assessment and Plan: Rate controlled. Continue Metoprolol, Amiodarone, Warfarin with goal INR of 2-3. Subjective Date/time seen: 11/13/23 10:46 Interval history: Reason for visit: Congestive heart failure HPI: This is a 78-year-old man with chronic coronary artery disease, left ventricular systolic dysfunction, chronic atrial fibrillation and chronic renal failure being seen at the request of the hospitalist because of shortness of breath and apparent CHF exacerbation.? The patient is not known to me prior to this encounter although he was just discharged from this hospital and earlier in the month by partners have seen him in consultation.? The patient was seen this morning and the chart was reviewed.? In summary this is a man with chronic coronary artery disease and left ventricular systolic dysfunction follows with a potato chip packaging machine operator not on staff at [facility].? He was seen in this hospital by my partners a couple of weeks ago he was in the hospital here but mainly with abdominal pain and colitis.? He was felt to have ischemic colitis he was treated medically and he did improve.? The patient has poor renal function with a creatinine that runs in the 3.5-3.9 range.? He in was somewhat hypotensive at times when he was in the hospital.? His heart failure medication including his hydralazine and isosorbide as well as losartan were discontinued.? He was kept on a modest dose of metoprolol succinate for AFib rate control.? He was then also placed on midodrine for low blood pressure.? From what I saw in the chart during the hospital stay he was not symptomatic with hypotensive.? He was discharged on Sunday of this past weekend and was at a local [facility] he was noted to be tachypneic and so he was sent back to the emergency room.? His vital signs were stable he was not hypoxemic but he was admitted to the hospital for a CHF exacerbation.? Speak to physicians who saw him on Sunday they indicate he looks clinically no different than at the time of his discharge. Date of service 11/13/23: He is quite sleepy this morning. No chest pain. Reports shortness of breath. Remains volume overloaded. Tele with rate controlled AFIB. Exam Const: General: no acute distress HENMT: Mouth: Yes moist mucous membranes Eyes: Sclera: sclerae normal Resp: Effort & Inspection: normal respiratory effort Auscultation: diminished lung sounds Other: On supplemental oxygen Cardio: Rhythm: abnormal rhythm irregularly irregular Other: Bilateral lower extremity edema Skin: General skin exam: normal color Psych: Affect: normal affect Objective Data Vital Signs Vital Signs: Vital Signs - 24 hr 11/12/23 11:53 11/12/23 14:00 11/12/23 14:00 Temperature 36.6 C Pulse Rate 91 77 92 Respiratory Rate 22 H Blood Pressure 102/70 108/48 L Pulse Oximetry 96 98 Oxygen Delivery
[2023-11-13] MEDS: BUMETANIDE INJ 1 MG/4 ML VIAL 2 MG IV PUSH ×2 (10:59→17:19)
[2023-11-13 12:31] LABS: Glucose Point of Care 205 mg/dl (65-105)
[2023-11-13] MEDS: INSULIN ASPART (*BKC) 100 UNITS/ML SUB-Q (12:45)
--- NOTE | 2023-11-13 13:46 | PM.IMPN ---
Progress Note: A&P Assessment and Plan (1) Acute exacerbation of CHF (congestive heart failure): Qualifiers: Heart failure type: combined systolic and diastolic Qualified Code(s): I50.43 - Acute on chronic combined systolic (congestive) and diastolic (congestive) heart failure Code(s): I50.9 - Heart failure, unspecified Status: Acute Assessment and Plan: Patient presents back to the ED for SOB and right leg pain and edema. His condition is essentially unchanged from discharge. CT A/P 11/11: Mild pulmonary edema, small bilateral pleural effusions, small volume ascites, severe body wall edema. BNP 30K but has JOSE F superimposed on CKD. Echo showing EF20-25%, reduced RV systolic function and akinetic mid anterolateral wall, mid anteroseptal wall and apex. Other areas are hypokinetic. Moderate MR and TR. Trop elevated but trending down from last admission. Received midodrine, Albumin and one dose lasix IV on admission Fluid overload related to his renal failure and CHF and probably a right sided heart failure. Toprol XL continued. Hydralazine and Imdur resumed at lower doses. Started on oral Bumex but poor UOP so changed to IV. Cr already higher at 3.8 Appreciate Cardiology input. Monitor UOP, renal function closely. (2) Chronic kidney disease, stage 4 (severe): Code(s): N18.4 - Chronic kidney disease, stage 4 (severe) Status: Chronic Assessment and Plan: Creatinine 2.4-2.9 in August of 2023 Recent JOSE F superimposed on CKD with presentation on 10/28, initial creatinine 3.5. US of kidneys/retroperitoneum (10/29) showed normal sized right kidney, no hydronephrosis. Left kidney not visualized due to body habitus. CT abdomen/pelvis (11/11) showed bilateral atrophy of the kidneys with multiple bilateral exophytic cyst measuring up to 7.5 cm on the right. Hyperdense right lower pole lesion, likely hemorrhagic or proteinaceous cyst. Nephrology following and appreciate their input Monitor UOP, renal function and electrolytes (3) Insulin dependent type 2 diabetes mellitus: Code(s): E11.9 - Type 2 diabetes mellitus without complications; Z79.4 - terminal operator (current) use of insulin Status: Acute Assessment and Plan: A1c 7.2%. The patient's blood glucose was reviewed on 11/13 Glucose remains reasonably well controlled but not at goal. Continue AccuCheks covering with sliding scale. Hypoglycemia protocol available as needed. Will advance lantus dose (4) Atrial fibrillation: Qualifiers: Atrial fibrillation type: paroxysmal Qualified Code(s): I48.0 - Paroxysmal atrial fibrillation Code(s): I48.91 - Unspecified atrial fibrillation Status: Acute Assessment and Plan: Patienit with chronic AFib. EKG showing AFib and indeterminate anteroseptal VT but no change from prior. Troponin 0.097 and trending down from last admission (Trop up to 1.8) Continue Toprol XL, Amiodarone, Plavix, and warfarin Continue tele monitoring (5) Hypertension: Qualifiers: Hypertension type: primary hypertension Qualified Code(s): I10 - Essential (primary) hypertension Code(s): I10 - Essential (primary) hypertension Status: Chronic Assessment and Plan: Patient's blood pressure was reviewed on 11/13 Blood pressure remains well controlled. Will continue to monitor (6) Coronary artery disease: Code(s): I25.10 - Atherosclerotic heart disease of [place] coronary artery without angina pectoris Status: Chronic Assessment and Plan: Hx of coronary stenting x10 in [facility]. No prior ischemic evaluation performed here. Plavix, Metoprolol resumed. No statin given allergy. (7) Colitis: Code(s): K52.9 - Noninfective gastroenteritis and colitis, unspecified Status: Acute Assessment and Plan: Patient presented with diarrhea 10/28/23. CT scan showing descending colitis. CDiff negative. Other s
[2023-11-13 16:20] LABS: Glucose Point of Care 162 mg/dl (65-105)
[2023-11-13] MEDS: WARFARIN (*PBKC) 4 MG TABLET PO (17:20)
[2023-11-13] MEDS: MELATONIN 3 MG TABLET PO (20:22)
[2023-11-13] MEDS: INSULIN GLARGINE (*BKC) 100 UNITS/ML SUB-Q (20:23)
[2023-11-13 20:39] LABS: Glucose Point of Care 178 mg/dl (65-105)
[2023-11-14] VITALS (19 sets, daily range): BP systolic 91–107; BP diastolic 56–71; PULSE 48–104; RESP 20–24; TEMP 36–36.6; O2SAT 94–99
[2023-11-14 05:11] LABS: Basophils Absolute Auto 0.1 K/mm3 (0.0-0.1); Basophils Percent Auto 0.7 % (0.2-1.2); Eosinophils Absolute Auto 0.4 K/mm3 (0-0.3); Eosinophils Percent Auto 4.5 % (0-4.4); Hematocrit 32.8 % (42.0-52.0); Hemoglobin 9.6 g/dL (14.0-18.0); Immature Granulocyte Absolute 0.06 K/mm3 (0.00-0.031); Immature Granulocyte Percent A 0.7 % (0-0.5); Lymphocytes Absolute Auto 1.79 K/mm3 (0.9-3.2); Lymphocytes Percent Auto 20.5 % (18.3-44.2); Mean Corpuscular HGB Conc 29.3 g/dl (32-36); Mean Corpuscular Hemoglobin 30.2 pg (26-34); Mean Corpuscular Volume 103.1 fl (80-100); Monocytes Percent Auto 10.9 % (2.6-8.5); Neutrophils Absolute Auto 5.5 K/mm3 (1.3-6.7); Neutrophils Percent Auto 62.7 % (45.5-73.1); Platelet Count Result 288 k/mm3 (150-375); Red Blood Count 3.18 M/mm3 (4.6-6.20); Red Cell Distribution Width 16.6 % (11.5-14.5); White Blood Count 8.8 K/mm3 (4.5-10.0)
[2023-11-14 05:21] LABS: INR 2.5; Prothrombin Time 28.6 Seconds (11.1-14.7)
[2023-11-14 05:24] LABS: Albumin Level 3.2 g/dL (3.5-5.1); Anion Gap 10 mmol/L (8-16); Blood Urea Nitrogen 61 mg/dL (9-20); Carbon Dioxide 27 mmol/L (22-30); Chloride 102 mmol/L (98-107); Estimated CRCL calculation 19 ml/min; Estimated Glomerular Filt Rate 13; Glucose 161 mg/dL (65-110); Magnesium 2.6 mg/dL (1.6-2.3); Phosphorus 5.7 mg/dL (2.5-4.5); Potassium 3.8 mmol/L (3.4-5.0); Sodium 139 mmol/L (137-145)
[2023-11-14] MEDS: LEVOTHYROXINE SODIUM 100 MCG TABLET PO (06:09)
--- NOTE | 2023-11-14 07:14 | PM.IMPN ---
Progress Note: A&P Assessment and Plan (1) Acute exacerbation of CHF (congestive heart failure): Qualifiers: Heart failure type: combined systolic and diastolic Qualified Code(s): I50.43 - Acute on chronic combined systolic (congestive) and diastolic (congestive) heart failure Code(s): I50.9 - Heart failure, unspecified Status: Acute Assessment and Plan: Patient presents back to the ED for SOB and right leg pain and edema. His condition is essentially unchanged from discharge. CT A/P 11/11: Mild pulmonary edema, small bilateral pleural effusions, small volume ascites, severe body wall edema. BNP 30K but has JOSE F superimposed on CKD. Echo showing EF20-25%, reduced RV systolic function and akinetic mid anterolateral wall, mid anteroseptal wall and apex. Other areas are hypokinetic. Moderate MR and TR. Trop elevated but trending down from last admission. Chest x-ray with moderate left pleural effusion Received midodrine, Albumin and one dose lasix IV on admission Fluid overload related to his renal failure and CHF and probably a right sided heart failure. Toprol XL continued. Hydralazine and Imdur resumed at lower doses. Started on oral Bumex but poor UOP so changed to IV. Cr already higher at 3.8 continues to rise to 4.4 today Appreciate Cardiology input. Nephrology on board as well. Monitor UOP, renal function closely. cxr repeat today witth improved left pleural effusion. mild interstitial edema persist. continue to monitor diureis and along with it his renal function. diuresis dosing per nephrology and cardiology (2) Chronic kidney disease, stage 4 (severe): Code(s): N18.4 - Chronic kidney disease, stage 4 (severe) Status: Chronic Assessment and Plan: Creatinine 2.4-2.9 in August of 2023 Recent JOSE F superimposed on CKD with presentation on 10/28, initial creatinine 3.5. US of kidneys/retroperitoneum (10/29) showed normal sized right kidney, no hydronephrosis. Left kidney not visualized due to body habitus. CT abdomen/pelvis (11/11) showed bilateral atrophy of the kidneys with multiple bilateral exophytic cyst measuring up to 7.5 cm on the right. Hyperdense right lower pole lesion, likely hemorrhagic or proteinaceous cyst. Nephrology following and appreciate their input Monitor UOP, renal function and electrolytes (3) Insulin dependent type 2 diabetes mellitus: Code(s): E11.9 - Type 2 diabetes mellitus without complications; Z79.4 - prison (current) use of insulin Status: Acute Assessment and Plan: A1c 7.2%. The patient's blood glucose was reviewed Glucose remains reasonable Continue AccuCheks covering with sliding scale. Hypoglycemia protocol available as needed. On Lantus and lispro (4) Atrial fibrillation: Qualifiers: Atrial fibrillation type: paroxysmal Qualified Code(s): I48.0 - Paroxysmal atrial fibrillation Code(s): I48.91 - Unspecified atrial fibrillation Status: Acute Assessment and Plan: Patienit with chronic AFib. EKG showing AFib and indeterminate anteroseptal IL but no change from prior. Troponin 0.097 and trending down from last admission (Trop up to 1.8) Continue Toprol XL, Amiodarone, Plavix, and warfarin Continue tele monitoring (5) Hypertension: Qualifiers: Hypertension type: primary hypertension Qualified Code(s): I10 - Essential (primary) hypertension Code(s): I10 - Essential (primary) hypertension Status: Chronic Assessment and Plan: Patient's blood pressure reviewed Blood pressure remains well controlled. Will continue to monitor (6) Coronary artery disease: Code(s): I25.10 - Atherosclerotic heart disease of [place] coronary artery without angina pectoris Status: Chronic Assessment and Plan: Hx of coronary stenting x10 in [facility]. No prior ischemic evaluation performed here. Plavix, Metoprolol resumed. No statin given allergy
--- NOTE | 2023-11-14 07:46 | P.CDI_ITS ---
CDI Query Clarification Request Documentation in the medical record indicates that this patient has: BMI 41.6 Based on your medical judgement, can you further clarify in the progress notes the diagnosis associated with these findings, if known, such as: * Overweight * Obesity * Morbid Obesity * Other condition (Please specify) * None of the above/ Not applicable/unknown Thank you! <Elisabeth Lerner RN - Last Filed: 11/14/23 07:50> Provider Comments morbid obesity <Denton Justin MD - Last Filed: 11/16/23 07:30>
[2023-11-14 08:32] LABS: Glucose Point of Care 151 mg/dl (65-105)
[2023-11-14] MEDS: BUMETANIDE INJ 1 MG/4 ML VIAL 2 MG IV PUSH ×2 (08:39→17:57)
[2023-11-14] MEDS: LIDOCAINE 5% PATCH 1 PATCH TRANSDERM (08:39)
[2023-11-14] MEDS: PANTOPRAZOLE 40 MG TABLET PO (08:39)
[2023-11-14] MEDS: ISOSORBIDE MONONITRATE 30 MG TAB.ER.24H PO (08:39)
[2023-11-14] MEDS: CALCIUM CARBONATE (OSCAL) 500 MG TABLET PO ×2 (08:40→17:57)
[2023-11-14] MEDS: ACIDOPHILUS/BULGARICUS CHEWABLE TABLET 1 TABLET BY MOUTH ×2 (08:40→17:57)
[2023-11-14] MEDS: ASCORBIC ACID 500 MG TABLET 1000 MG PO (08:40)
[2023-11-14] MEDS: AMIODARONE HCL 200 MG TABLET PO (08:40)
[2023-11-14] MEDS: allopurinoL 100 MG TABLET PO (08:40)
[2023-11-14] MEDS: FERROUS SULFATE 325 MG TABLET DR BY MOUTH (08:40)
[2023-11-14] MEDS: CLOPIDOGREL BISULFATE 75 MG TABLET PO (08:40)
[2023-11-14] MEDS: METOPROLOL SUCCINATE EXT REL 25 MG TABCR PO (08:40)
[2023-11-14] MEDS: TOLNAFTATE 1% POWDER 45 GM BTL 1 APPLIC TOPICAL ×2 (08:41→20:36)
[2023-11-14] MEDS: Pilocarpine Hcl 5 mg tablet 5 EACH PO ×3 (08:41→17:58)
--- NOTE | 2023-11-14 11:10 | PM.PNCARD ---
Progress Note: A&P Assessment and Plan (1) Acute exacerbation of CHF (congestive heart failure): Qualifiers: Heart failure type: combined systolic and diastolic Qualified Code(s): I50.43 - Acute on chronic combined systolic (congestive) and diastolic (congestive) heart failure Code(s): I50.9 - Heart failure, unspecified Status: Acute Assessment and Plan: Remains volume overloaded. Although I/Os from yesterday are not completely accurately recorded, it does not appear that he had adequate diuresis yesterday. Continue iV Bumex 2mg BID. Continue low dose Imdur and Hydralazine. Renal function continues to worsen despite diuresis. He is markedly edematous. Will start Milrinone drip to see if inotrope therapy will help his volume status (2) Coronary artery disease: Code(s): I25.10 - Atherosclerotic heart disease of [place] coronary artery without angina pectoris Status: Chronic Assessment and Plan: Continue Plavix, beta matt, Imdur. (3) Atrial fibrillation: Qualifiers: Atrial fibrillation type: paroxysmal Qualified Code(s): I48.0 - Paroxysmal atrial fibrillation Code(s): I48.91 - Unspecified atrial fibrillation Status: Acute Assessment and Plan: Rate controlled. Continue Metoprolol, Amiodarone, Warfarin with goal INR of 2-3. Subjective Date/time seen: 11/14/23 11:10 Interval history: Reason for visit: Congestive heart failure HPI: This is a 78-year-old man with chronic coronary artery disease, left ventricular systolic dysfunction, chronic atrial fibrillation and chronic renal failure being seen at the request of the hospitalist because of shortness of breath and apparent CHF exacerbation.? The patient is not known to me prior to this encounter although he was just discharged from this hospital and earlier in the month by partners have seen him in consultation.? The patient was seen this morning and the chart was reviewed.? In summary this is a man with chronic coronary artery disease and left ventricular systolic dysfunction follows with a studio operator not on staff at [facility].? He was seen in this hospital by my partners a couple of weeks ago he was in the hospital here but mainly with abdominal pain and colitis.? He was felt to have ischemic colitis he was treated medically and he did improve.? The patient has poor renal function with a creatinine that runs in the 3.5-3.9 range.? He in was somewhat hypotensive at times when he was in the hospital.? His heart failure medication including his hydralazine and isosorbide as well as losartan were discontinued.? He was kept on a modest dose of metoprolol succinate for AFib rate control.? He was then also placed on midodrine for low blood pressure.? From what I saw in the chart during the hospital stay he was not symptomatic with hypotensive.? He was discharged on Sunday of this past weekend and was at a local [place] [facility] facility he was noted to be tachypneic and so he was sent back to the emergency room.? His vital signs were stable he was not hypoxemic but he was admitted to the hospital for a CHF exacerbation.? Speak to physicians who saw him on Sunday they indicate he looks clinically no different than at the time of his discharge. Date of service 11/13/23: He is quite sleepy this morning. No chest pain. Reports shortness of breath. Remains volume overloaded. Tele with rate controlled AFIB. Date of service 11/14/2023: He is very edematous. No chest pain. Review of Systems Constitutional: Constitutional: Reports lethargy Eyes: Eyes: Reports no additional eye complaints ENT: Reports system reviewed and no additional complaints, except as documented Cardiovascular: Cardiovascular: Reports as per HPI and Reports dyspnea on exertion Respiratory: Respiratory: Reports dyspnea on exertion Gastrointestinal: Gastrointestinal: Reports no additional gastrointestinal complaints Musculoskeletal: Musculoskeletal
[2023-11-14] MEDS: MILRINONE LACTATE 20 MG in DEXTROSE 5% 80 ML 15.64 MG IV CONT ×3 (12:15→23:33)
[2023-11-14 12:37] LABS: Glucose Point of Care 191 mg/dl (65-105)
--- NOTE | 2023-11-14 14:19 | P.PNNP_ITS ---
Progress Note: A&P Assessment and Plan (1) JOSE F (acute kidney injury): Code(s): N17.9 - Acute kidney failure, unspecified Status: Acute Assessment and Plan: * due to attempted diuresis in the context of fluid overload * unfortunately, limited diuresis noted and creatinine continues to worsen * no critical electrolytes noted but uremia and volume status remain an issue... (2) Chronic kidney disease, stage 4 (severe): Code(s): N18.4 - Chronic kidney disease, stage 4 (severe) Status: Chronic Assessment and Plan: * creatinine had been running ~ 2ish [place] in 2021 * due to HTN, DM, CHF/cardiomyopathy, vascular disease, EILEEN/pulmonary hypertension, and age-related change * however, with recent last hospitalizations over the last several months, his creatinine has been running higher (in the 3ish range) due to diuresis and need for higher dose of diuretics to maintain his volume status * suspect some CKD progression versus the fact that he needs a higher creatinine to achieve relative euvolemia * his lower creatinine (2.9mg/dl on August 2023) may have been dilutional since he was volume overloaded at that time -- however, he was discharged on a higher dose of diuretics... * creatinine 3.2mg/dl on admission..creatinine rising with diuresis * back on diuretic therapy * follow trend of labs and UOP (3) Acute exacerbation of CHF (congestive heart failure): Qualifiers: Heart failure type: combined systolic and diastolic Qualified Code(s): I50.43 - Acute on chronic combined systolic (congestive) and diastolic (congestive) heart failure Code(s): I50.9 - Heart failure, unspecified Status: Acute Assessment and Plan: * as noted by admission imaging and exam * noted depressed EF opf 25-30% on last Echo * Cardiology recommendations noted * resumed on diuretic therapy * follow I/Os, daily weights, and respiratory status (4) Anasarca: Code(s): R60.1 - Generalized edema Status: Chronic Assessment and Plan: * due to chronic systolic heart failure and CKD progression coupled with hypoalbuminemia * transitioned to IV diuretic therapy * in the past, he has required loop diuretic gtt * monitor volume status with diuresis (5) Hypertension: Qualifiers: Hypertension type: primary hypertension Qualified Code(s): I10 - Essential (primary) hypertension Code(s): I10 - Essential (primary) hypertension Status: Chronic Assessment and Plan: * despite history, BP running on the low/soft side * BP medications resumed with parameters * was previously on midodrine * follow trend of hemodynamics (6) Atrial fibrillation: Qualifiers: Atrial fibrillation type: paroxysmal Qualified Code(s): I48.0 - Paroxysmal atrial fibrillation Code(s): I48.91 - Unspecified atrial fibrillation Status: Chronic Assessment and Plan: * rate control strategy * on anticoagulation with warfarin * follow INR (7) Anemia: Code(s): D64.9 - Anemia, unspecified Status: Chronic Assessment and Plan: * related to CKD * follow trend of H/H * consider JINNY if needed (8) Type 2 diabetes mellitus: Qualifiers: Diabetes mellitus terminal computer operator insulin use: with terminal computer operator use Diabetes mellitus complication status: with circulatory complication Diabetes mellitus complication detail: with other circulatory complications Qualified Code(s): E11.59 - Type 2 diabetes mellitus with other circulatory complications; Z79.4 - Tony
--- NOTE | 2023-11-14 14:19 | PM.PNNEP ---
Progress Note: A&P Assessment and Plan (1) JOSE F (acute kidney injury): Code(s): N17.9 - Acute kidney failure, unspecified Status: Acute Assessment and Plan: due to attempted diuresis in the context of fluid overload unfortunately, limited diuresis noted and creatinine continues to worsen no critical electrolytes noted but uremia and volume status remain an issue... (2) Chronic kidney disease, stage 4 (severe): Code(s): N18.4 - Chronic kidney disease, stage 4 (severe) Status: Chronic Assessment and Plan: creatinine had been running ~ 2ish [place] in 2021 due to HTN, DM, CHF/cardiomyopathy, vascular disease, EILEEN/pulmonary hypertension, and age-related change however, with recent last hospitalizations over the last several months, his creatinine has been running higher (in the 3ish range) due to diuresis and need for higher dose of diuretics to maintain his volume status suspect some CKD progression versus the fact that he needs a higher creatinine to achieve relative euvolemia his lower creatinine (2.9mg/dl on August 2023) may have been dilutional since he was volume overloaded at that time -- however, he was discharged on a higher dose of diuretics... creatinine 3.2mg/dl on admission..creatinine rising with diuresis back on diuretic therapy follow trend of labs and UOP (3) Acute exacerbation of CHF (congestive heart failure): Qualifiers: Heart failure type: combined systolic and diastolic Qualified Code(s): I50.43 - Acute on chronic combined systolic (congestive) and diastolic (congestive) heart failure Code(s): I50.9 - Heart failure, unspecified Status: Acute Assessment and Plan: as noted by admission imaging and exam noted depressed EF opf 25-30% on last Echo Cardiology recommendations noted resumed on diuretic therapy follow I/Os, daily weights, and respiratory status (4) Anasarca: Code(s): R60.1 - Generalized edema Status: Chronic Assessment and Plan: due to chronic systolic heart failure and CKD progression coupled with hypoalbuminemia transitioned to IV diuretic therapy in the past, he has required loop diuretic gtt monitor volume status with diuresis (5) Hypertension: Qualifiers: Hypertension type: primary hypertension Qualified Code(s): I10 - Essential (primary) hypertension Code(s): I10 - Essential (primary) hypertension Status: Chronic Assessment and Plan: despite history, BP running on the low/soft side BP medications resumed with parameters was previously on midodrine follow trend of hemodynamics (6) Atrial fibrillation: Qualifiers: Atrial fibrillation type: paroxysmal Qualified Code(s): I48.0 - Paroxysmal atrial fibrillation Code(s): I48.91 - Unspecified atrial fibrillation Status: Chronic Assessment and Plan: rate control strategy on anticoagulation with warfarin follow INR (7) Anemia: Code(s): D64.9 - Anemia, unspecified Status: Chronic Assessment and Plan: related to CKD follow trend of H/H consider JINNY if needed (8) Type 2 diabetes mellitus: Qualifiers: Diabetes mellitus manager terminal insulin use: with jail use Diabetes mellitus complication status: with circulatory complication Diabetes mellitus complication detail: with other circulatory complications Qualified Code(s): E11.59 - Type 2 diabetes mellitus with other circulatory complications; Z79.4 - correction (current) use of insulin Code(s): E11.9 - Type 2 diabetes mellitus without complications Status: Chronic Assessment and Plan: follow accu-cheks glycemic control per hospitalists Long extensive discussion ( greater than 20 minutes) with the patient regarding his ongoing deteriorating creatinine/ renal function in the context of anasarca/volume overload with limited diuresis despite current interventions/
[2023-11-14 17:03] LABS: Glucose Point of Care 213 mg/dl (65-105)
[2023-11-14] MEDS: INSULIN ASPART (*BKC) 100 UNITS/ML SUB-Q ×2 (17:56→20:36)
[2023-11-14] MEDS: WARFARIN (*PBKC) 4 MG TABLET PO (17:57)
[2023-11-14] MEDS: INSULIN GLARGINE (*BKC) 100 UNITS/ML SUB-Q (20:35)
[2023-11-14] MEDS: MELATONIN 3 MG TABLET PO (20:35)
[2023-11-14 20:48] LABS: Glucose Point of Care 216 mg/dl (65-105)
[2023-11-15] VITALS (19 sets, daily range): BP systolic 94–112; BP diastolic 49–61; PULSE 92–112; RESP 20–24; TEMP 36.1–36.6; O2SAT 93–100
[2023-11-15 05:17] LABS: Basophils Absolute Auto 0.1 K/mm3 (0.0-0.1); Basophils Percent Auto 0.6 % (0.2-1.2); Eosinophils Absolute Auto 0.4 K/mm3 (0-0.3); Immature Granulocyte Absolute 0.04 K/mm3 (0.00-0.031); Immature Granulocyte Percent A 0.4 % (0-0.5); Lymphocytes Absolute Auto 1.36 K/mm3 (0.9-3.2); Lymphocytes Percent Auto 14.4 % (18.3-44.2); Mean Corpuscular Hemoglobin 30.5 pg (26-34); Mean Corpuscular Volume 105.1 fl (80-100); Neutrophils Absolute Auto 6.5 K/mm3 (1.3-6.7); Neutrophils Percent Auto 69.6 % (45.5-73.1); Platelet Count Result 285 k/mm3 (150-375); Red Blood Count 2.95 M/mm3 (4.6-6.20); Red Cell Distribution Width 16.8 % (11.5-14.5); White Blood Count 9.4 K/mm3 (4.5-10.0)
[2023-11-15 05:26] LABS: INR 2.6; Prothrombin Time 29.7 Seconds (11.1-14.7)
[2023-11-15 05:29] LABS: Alanine Aminotransferase 10 U/L (6-50); Albumin Level 3.2 g/dL (3.5-5.1); Alkaline Phosphatase 75 U/L (38-126); Anion Gap 11 mmol/L (8-16); Aspartate Amino Transferase 20 U/L (17-59); Bilirubin,Total 0.5 mg/dL (0.2-1.3); Blood Urea Nitrogen 66 mg/dL (9-20); Carbon Dioxide 25 mmol/L (22-30); Chloride 100 mmol/L (98-107); Estimated CRCL calculation 17 ml/min; Estimated Glomerular Filt Rate 12; Glucose 194 mg/dL (65-110); Magnesium 2.6 mg/dL (1.6-2.3); Potassium 3.7 mmol/L (3.4-5.0); Sodium 136 mmol/L (137-145)
[2023-11-15 05:44] LABS: Anisocytosis 1+ (NORMAL); Ovalocytes 1+ (NORMAL); Platelet Estimate Adequate (Adequate)
[2023-11-15 05:45] LABS: Schistocytes None Seen (NORMAL)
[2023-11-15] MEDS: LEVOTHYROXINE SODIUM 100 MCG TABLET PO (05:56)
[2023-11-15] MEDS: MILRINONE LACTATE 20 MG in DEXTROSE 5% 80 ML 15.64 MG IV CONT (06:47)
[2023-11-15 07:57] LABS: Glucose Point of Care 174 mg/dl (65-105)
--- NOTE | 2023-11-15 09:05 | PM.IMPN ---
Progress Note: A&P Assessment and Plan (1) Acute hypoxemic respiratory failure: Code(s): J96.01 - Acute respiratory failure with hypoxia Status: Acute Assessment and Plan: Likely due to decompensated CHF. Currently on 2 L, wean as tolerated. (2) Acute exacerbation of CHF (congestive heart failure): Qualifiers: Heart failure type: combined systolic and diastolic Qualified Code(s): I50.43 - Acute on chronic combined systolic (congestive) and diastolic (congestive) heart failure Code(s): I50.9 - Heart failure, unspecified Status: Acute Assessment and Plan: Patient presents back to the ED for SOB and right leg pain and edema. His condition is essentially unchanged from discharge. CT A/P 11/11: Mild pulmonary edema, small bilateral pleural effusions, small volume ascites, severe body wall edema. BNP greater than 30 K on admission which is increasing from prior admission. Note, he does have JOSE F on CKD. Echo showing EF20-25%, reduced RV systolic function and akinetic mid anterolateral wall, mid anteroseptal wall and apex. Other areas are hypokinetic. Moderate MR and TR. Trop elevated but trending down from last admission. Chest x-ray with moderate left pleural effusion Received midodrine, Albumin and one dose lasix IV on admission Fluid overload related to his renal failure and CHF and probably a right sided heart failure. Toprol XL continued. Hydralazine and Imdur resumed at lower doses. Started on oral Bumex but poor UOP so changed to IV. Cr already higher at 3.8 continues to rise to 4.4 today On 11/15 serum creatinine rise to 4.9. He still has an adequate urine output. To discuss with Nephrology and Cardiology will likely need even higher doses of diuretic. Giving 1 time albumin 50 g dose to support intravascular volume as he has severe body wall edema. (3) Chronic kidney disease, stage 4 (severe): Code(s): N18.4 - Chronic kidney disease, stage 4 (severe) Status: Chronic Assessment and Plan: Creatinine 2.4-2.9 in August of 2023 Recent JOSE F superimposed on CKD with presentation on 10/28, initial creatinine 3.5. US of kidneys/retroperitoneum (10/29) showed normal sized right kidney, no hydronephrosis. Left kidney not visualized due to body habitus. CT abdomen/pelvis (11/11) showed bilateral atrophy of the kidneys with multiple bilateral exophytic cyst measuring up to 7.5 cm on the right. Hyperdense right lower pole lesion, likely hemorrhagic or proteinaceous cyst. Nephrology following and appreciate their input Monitor UOP, renal function and electrolytes On 11/15 creatinine bumped to 4.9. Discontinue pilocarpine and Protonix they can cause interstitial nephritis (4) Insulin dependent type 2 diabetes mellitus: Code(s): E11.9 - Type 2 diabetes mellitus without complications; Z79.4 - USP (current) use of insulin Status: Acute Assessment and Plan: A1c 7.2%. Continue AccuCheks covering with sliding scale. Hypoglycemia protocol available as needed. On Lantus and lispro. (5) Atrial fibrillation: Qualifiers: Atrial fibrillation type: paroxysmal Qualified Code(s): I48.0 - Paroxysmal atrial fibrillation Code(s): I48.91 - Unspecified atrial fibrillation Status: Acute Assessment and Plan: Patienit with chronic AFib. EKG showing AFib and indeterminate anteroseptal CA but no change from prior. Troponin 0.097 and trending down from last admission (Trop up to 1.8) Continue Toprol XL, Amiodarone, Plavix, and warfarin Continue tele monitoring (6) Hypertension: Qualifiers: Hypertension type: primary hypertension Qualified Code(s): I10 - Essential (primary) hypertension Code(s): I10 - Essential (primary) hypertension Status: Chronic Assessment and Plan: Controlled. Continue to monitor. (7) Coronary artery disease: Code(s): I25.10 - Atherosclerotic heart disease of maria [place]
[2023-11-15] MEDS: ISOSORBIDE MONONITRATE 30 MG TAB.ER.24H PO (09:58)
[2023-11-15] MEDS: METOPROLOL SUCCINATE EXT REL 25 MG TABCR PO (09:58)
[2023-11-15] MEDS: CLOPIDOGREL BISULFATE 75 MG TABLET PO (09:58)
[2023-11-15] MEDS: ACIDOPHILUS/BULGARICUS CHEWABLE TABLET 1 TABLET BY MOUTH ×2 (09:59→18:06)
[2023-11-15] MEDS: allopurinoL 100 MG TABLET PO (09:59)
[2023-11-15] MEDS: FERROUS SULFATE 325 MG TABLET DR BY MOUTH (09:59)
[2023-11-15] MEDS: LIDOCAINE 5% PATCH 1 PATCH TRANSDERM (09:59)
[2023-11-15] MEDS: ASCORBIC ACID 500 MG TABLET 1000 MG PO (09:59)
[2023-11-15] MEDS: AMIODARONE HCL 200 MG TABLET PO (09:59)
[2023-11-15] MEDS: CALCIUM CARBONATE (OSCAL) 500 MG TABLET PO ×2 (09:59→18:06)
[2023-11-15] MEDS: BUMETANIDE INJ 1 MG/4 ML VIAL 2 MG IV PUSH ×2 (10:00→13:22)
[2023-11-15] MEDS: TOLNAFTATE 1% POWDER 45 GM BTL 1 APPLIC TOPICAL ×2 (10:01→20:34)
--- NOTE | 2023-11-15 10:41 | PM.PNCARD ---
Progress Note: A&P Assessment and Plan (1) Acute exacerbation of CHF (congestive heart failure): Qualifiers: Heart failure type: combined systolic and diastolic Qualified Code(s): I50.43 - Acute on chronic combined systolic (congestive) and diastolic (congestive) heart failure Code(s): I50.9 - Heart failure, unspecified Status: Acute Assessment and Plan: Remains volume overloaded. Although I/Os from yesterday are not completely accurately recorded, it does not appear that he had adequate diuresis yesterday. Continue iV Bumex 2mg BID. Continue low dose Imdur and Hydralazine. Renal function continues to worsen despite diuresis. He is markedly edematous. Will DC Milrinone drip as patient is not diuresing. Needs dialysis for volume (2) Coronary artery disease: Code(s): I25.10 - Atherosclerotic heart disease of [place] coronary artery without angina pectoris Status: Chronic Assessment and Plan: Continue Plavix, beta matt, Imdur. (3) Atrial fibrillation: Qualifiers: Atrial fibrillation type: paroxysmal Qualified Code(s): I48.0 - Paroxysmal atrial fibrillation Code(s): I48.91 - Unspecified atrial fibrillation Status: Acute Assessment and Plan: Rate controlled. Continue Metoprolol, Amiodarone, Warfarin with goal INR of 2-3. Subjective Date/time seen: 11/15/23 10:41 Interval history: Reason for visit: Congestive heart failure HPI: This is a 78-year-old man with chronic coronary artery disease, left ventricular systolic dysfunction, chronic atrial fibrillation and chronic renal failure being seen at the request of the hospitalist because of shortness of breath and apparent CHF exacerbation.? The patient is not known to me prior to this encounter although he was just discharged from this hospital and earlier in the month by partners have seen him in consultation.? The patient was seen this morning and the chart was reviewed.? In summary this is a man with chronic coronary artery disease and left ventricular systolic dysfunction follows with a extension educator not on staff at [facility].? He was seen in this hospital by my partners a couple of weeks ago he was in the hospital here but mainly with abdominal pain and colitis.? He was felt to have ischemic colitis he was treated medically and he did improve.? The patient has poor renal function with a creatinine that runs in the 3.5-3.9 range.? He in was somewhat hypotensive at times when he was in the hospital.? His heart failure medication including his hydralazine and isosorbide as well as losartan were discontinued.? He was kept on a modest dose of metoprolol succinate for AFib rate control.? He was then also placed on midodrine for low blood pressure.? From what I saw in the chart during the hospital stay he was not symptomatic with hypotensive.? He was discharged on Sunday of this past weekend and was at a local alf he was noted to be tachypneic and so he was sent back to the emergency room.? His vital signs were stable he was not hypoxemic but he was admitted to the hospital for a CHF exacerbation.? Speak to physicians who saw him on Sunday they indicate he looks clinically no different than at the time of his discharge. Date of service 11/13/23: He is quite sleepy this morning. No chest pain. Reports shortness of breath. Remains volume overloaded. Tele with rate controlled AFIB. Date of service 11/14/2023: He is very edematous. No chest pain. Date of service 11/15/2023: Still very edematous. Does not advocate any chest pain. Little urine output Review of Systems Constitutional: Constitutional: Reports lethargy Eyes: Eyes: Reports no additional eye complaints ENT: Reports system reviewed and no additional complaints, except as documented Cardiovascular: Cardiovascular: Reports as per HPI and Reports dyspnea on exertion Respiratory: Respiratory: Reports dyspnea on exertion Gastrointestinal:
[2023-11-15 11:41] LABS: Glucose Point of Care 196 mg/dl (65-105)
[2023-11-15] MEDS: ALBUMIN HUMAN 25% 25 GM/100 ML 200 ML IVPB (11:50)
--- NOTE | 2023-11-15 12:30 | PM.PNNEP ---
Progress Note: A&P Assessment and Plan (1) JOSE F (acute kidney injury): Code(s): N17.9 - Acute kidney failure, unspecified Status: Acute Assessment and Plan: due to attempted diuresis in the context of fluid overload unfortunately, limited diuresis noted and creatinine continues to worsen no critical electrolytes noted but uremia and volume status remain an issue... (2) Chronic kidney disease, stage 4 (severe): Code(s): N18.4 - Chronic kidney disease, stage 4 (severe) Status: Chronic Assessment and Plan: creatinine had been running ~ 2ish [place] in 2021 due to HTN, DM, CHF/cardiomyopathy, vascular disease, EILEEN/pulmonary hypertension, and age-related change however, with recent last hospitalizations over the last several months, his creatinine has been running higher (in the 3ish range) due to diuresis and need for higher dose of diuretics to maintain his volume status suspect some CKD progression versus the fact that he needs a higher creatinine to achieve relative euvolemia his lower creatinine (2.9mg/dl on August 2023) may have been dilutional since he was volume overloaded at that time -- however, he was discharged on a higher dose of diuretics... creatinine 3.2mg/dl on admission..creatinine rising with diuresis back on diuretic therapy follow trend of labs and UOP (3) Acute exacerbation of CHF (congestive heart failure): Qualifiers: Heart failure type: combined systolic and diastolic Qualified Code(s): I50.43 - Acute on chronic combined systolic (congestive) and diastolic (congestive) heart failure Code(s): I50.9 - Heart failure, unspecified Status: Acute Assessment and Plan: as noted by admission imaging and exam noted depressed EF opf 25-30% on last Echo Cardiology recommendations noted resumed on diuretic therapy follow I/Os, daily weights, and respiratory status (4) Anasarca: Code(s): R60.1 - Generalized edema Status: Chronic Assessment and Plan: due to chronic systolic heart failure and CKD progression coupled with hypoalbuminemia transitioned to IV diuretic therapy in the past, he has required loop diuretic gtt monitor volume status with diuresis (5) Hypertension: Qualifiers: Hypertension type: primary hypertension Qualified Code(s): I10 - Essential (primary) hypertension Code(s): I10 - Essential (primary) hypertension Status: Chronic Assessment and Plan: despite history, BP running on the low/soft side BP medications resumed with parameters was previously on midodrine follow trend of hemodynamics (6) Atrial fibrillation: Qualifiers: Atrial fibrillation type: paroxysmal Qualified Code(s): I48.0 - Paroxysmal atrial fibrillation Code(s): I48.91 - Unspecified atrial fibrillation Status: Chronic Assessment and Plan: rate control strategy on anticoagulation with warfarin follow INR (7) Anemia: Code(s): D64.9 - Anemia, unspecified Status: Chronic Assessment and Plan: related to CKD follow trend of H/H consider JINNY if needed (8) Type 2 diabetes mellitus: Qualifiers: 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: with senior living use Diabetes mellitus complication status: with circulatory complication Diabetes mellitus complication detail: with other circulatory complications Qualified Code(s): E11.59 - Type 2 diabetes mellitus with other circulatory complications; Z79.4 - jail (current) use of insulin Code(s): E11.9 - Type 2 diabetes mellitus without complications Status: Chronic Assessment and Plan: follow accu-cheks glycemic control per hospitalists As it appears we have exhausted conservative medical therapy an effort to optimize his volume status and maintain stability in his renal function, it would seem that the next step is proceeding with renal replacement therapy/raquel
--- NOTE | 2023-11-15 12:30 | P.PNNP_ITS ---
Progress Note: A&P Assessment and Plan (1) OJSE F (acute kidney injury): Code(s): N17.9 - Acute kidney failure, unspecified Status: Acute Assessment and Plan: * due to attempted diuresis in the context of fluid overload * unfortunately, limited diuresis noted and creatinine continues to worsen * no critical electrolytes noted but uremia and volume status remain an issue... (2) Chronic kidney disease, stage 4 (severe): Code(s): N18.4 - Chronic kidney disease, stage 4 (severe) Status: Chronic Assessment and Plan: * creatinine had been running ~ 2ish [place] in 2021 * due to HTN, DM, CHF/cardiomyopathy, vascular disease, EILEEN/pulmonary hypertension, and age-related change * however, with recent last hospitalizations over the last several months, his creatinine has been running higher (in the 3ish range) due to diuresis and need for higher dose of diuretics to maintain his volume status * suspect some CKD progression versus the fact that he needs a higher creatinine to achieve relative euvolemia * his lower creatinine (2.9mg/dl on August 2023) may have been dilutional since he was volume overloaded at that time -- however, he was discharged on a higher dose of diuretics... * creatinine 3.2mg/dl on admission..creatinine rising with diuresis * back on diuretic therapy * follow trend of labs and UOP (3) Acute exacerbation of CHF (congestive heart failure): Qualifiers: Heart failure type: combined systolic and diastolic Qualified Code(s): I50.43 - Acute on chronic combined systolic (congestive) and diastolic (congestive) heart failure Code(s): I50.9 - Heart failure, unspecified Status: Acute Assessment and Plan: * as noted by admission imaging and exam * noted depressed EF opf 25-30% on last Echo * Cardiology recommendations noted * resumed on diuretic therapy * follow I/Os, daily weights, and respiratory status (4) Anasarca: Code(s): R60.1 - Generalized edema Status: Chronic Assessment and Plan: * due to chronic systolic heart failure and CKD progression coupled with hypoalbuminemia * transitioned to IV diuretic therapy * in the past, he has required loop diuretic gtt * monitor volume status with diuresis (5) Hypertension: Qualifiers: Hypertension type: primary hypertension Qualified Code(s): I10 - Essential (primary) hypertension Code(s): I10 - Essential (primary) hypertension Status: Chronic Assessment and Plan: * despite history, BP running on the low/soft side * BP medications resumed with parameters * was previously on midodrine * follow trend of hemodynamics (6) Atrial fibrillation: Qualifiers: Atrial fibrillation type: paroxysmal Qualified Code(s): I48.0 - Paroxysmal atrial fibrillation Code(s): I48.91 - Unspecified atrial fibrillation Status: Chronic Assessment and Plan: * rate control strategy * on anticoagulation with warfarin * follow INR (7) Anemia: Code(s): D64.9 - Anemia, unspecified Status: Chronic Assessment and Plan: * related to CKD * follow trend of H/H * consider JINNY if needed (8) Type 2 diabetes mellitus: Qualifiers: 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
[2023-11-15] MEDS: metOLazone 5 MG TABLET PO (13:22)
--- NOTE | 2023-11-15 16:41 | PC.NURSE ---
I have checked Arnaldo White's charting and approve it.
[2023-11-15 17:43] LABS: Glucose Point of Care 250 mg/dl (65-105)
[2023-11-15] MEDS: PHYTONADIONE 5 MG TABLET PO (18:06)
[2023-11-15] MEDS: INSULIN ASPART (*BKC) 100 UNITS/ML SUB-Q ×2 (18:06→20:34)
[2023-11-15] MEDS: MELATONIN 3 MG TABLET PO (20:33)
[2023-11-15] MEDS: INSULIN GLARGINE (*BKC) 100 UNITS/ML SUB-Q (20:33)
[2023-11-15] MEDS: ONDANSETRON HCL ODT 4 MG TABLET PO (20:33)
[2023-11-15 21:01] LABS: Glucose Point of Care 210 mg/dl (65-105)
[2023-11-16] VITALS (30 sets, daily range): BP systolic 85–120; BP diastolic 25–91; PULSE 94–115; RESP 16–22; TEMP 36.1–37.1; O2SAT 92–99
[2023-11-16 05:03] LABS: Basophils Absolute Auto 0.1 K/mm3 (0.0-0.1); Basophils Percent Auto 0.7 % (0.2-1.2); Eosinophils Absolute Auto 0.1 K/mm3 (0-0.3); Eosinophils Percent Auto 1.5 % (0-4.4); Hematocrit 28.9 % (42.0-52.0); Hemoglobin 8.8 g/dL (14.0-18.0); Immature Granulocyte Absolute 0.04 K/mm3 (0.00-0.031); Immature Granulocyte Percent A 0.5 % (0-0.5); Lymphocytes Absolute Auto 1.21 K/mm3 (0.9-3.2); Lymphocytes Percent Auto 13.7 % (18.3-44.2); Mean Corpuscular HGB Conc 30.4 g/dl (32-36); Mean Corpuscular Hemoglobin 30.2 pg (26-34); Mean Corpuscular Volume 99.3 fl (80-100); Mean Platelet Volume 10.8 fl (7.4-10.4); Monocytes Absolute Auto 0.9 K/mm3 (0.1-0.6); Monocytes Percent Auto 10.3 % (2.6-8.5); Neutrophils Absolute Auto 6.5 K/mm3 (1.3-6.7); Neutrophils Percent Auto 73.3 % (45.5-73.1); Platelet Count Result 277 k/mm3 (150-375); Red Blood Count 2.91 M/mm3 (4.6-6.20); White Blood Count 8.8 K/mm3 (4.5-10.0)
[2023-11-16 05:15] LABS: INR 2.5; Prothrombin Time 28.7 Seconds (11.1-14.7)
[2023-11-16 05:24] LABS: Alanine Aminotransferase 11 U/L (6-50); Albumin Level 3.4 g/dL (3.5-5.1); Alkaline Phosphatase 72 U/L (38-126); Anion Gap 14 mmol/L (8-16); Aspartate Amino Transferase 17 U/L (17-59); Bilirubin,Total 0.6 mg/dL (0.2-1.3); Blood Urea Nitrogen 69 mg/dL (9-20); Calcium 8.4 mg/dL (8.4-10.2); Carbon Dioxide 22 mmol/L (22-30); Chloride 98 mmol/L (98-107); Estimated CRCL calculation 16 ml/min; Estimated Glomerular Filt Rate 11; Glucose 181 mg/dL (65-110); Sodium 134 mmol/L (137-145)
[2023-11-16] MEDS: AMIODARONE HCL 200 MG TABLET PO (08:19)
[2023-11-16] MEDS: LIDOCAINE 5% PATCH 1 PATCH TRANSDERM (08:19)
[2023-11-16] MEDS: TOLNAFTATE 1% POWDER 45 GM BTL 1 APPLIC TOPICAL ×2 (08:19→21:46)
[2023-11-16] MEDS: FLUTICASONE PROPIONATE 0.05% NA SPR 16 GM BTL (*BKC) 1 SPRAY NASAL (08:20)
[2023-11-16 08:54] LABS: Glucose Point of Care 186 mg/dl (65-105)
--- NOTE | 2023-11-16 11:16 | PCOTNOTE ---
The patient treatment was not able to be completed. Patient out of the room for procedure. Will plan to continue treatment per plan of care.
[2023-11-16] MEDS: SODIUM CHLORIDE 0.9% IV 500 ML 30 ML IV CONT (11:53)
--- NOTE | 2023-11-16 11:55 | PM.CNGS ---
Assessment and Plan Assessment and plan (1) Acute kidney injury superimposed on CKD: Code(s): N17.9 - Acute kidney failure, unspecified; N18.9 - Chronic kidney disease, unspecified Status: Acute Assessment and Plan: will set up for emergent hemodialysis access in OR, cont to hold Coumadin, will give FFP (2) Acute hypoxemic respiratory failure: Code(s): J96.01 - Acute respiratory failure with hypoxia Status: Acute Assessment and Plan: continues to worsen despite medical diuresis, intervention, plan for emergent dialysis History of Present Illness Consult details Consult date: 11/16/23 Reason for consult: other (Acute renal failure) Requesting physician: Karma Paul MD Narrative: The patient is a 78-year-old male presenting to the hospital with acute on chronic renal failure, fluid overload. Despite medical therapy, the patient continues to worsen and at this time will require emergent hemodialysis. The patient is on Coumadin which is being held at this time. The patient is having difficulty breathing secondary to volume overload. History is largely obtained via chart. Review of Systems Review of Systems: ROS unobtainable: Yes unobtainable due to medical condition [facility] Past Medical History Medical History Aortic stenosis, mild Atrial fibrillation Chronic anticoagulation Chronic kidney disease, stage 4 (severe) Combined systolic and diastolic congestive heart failure He follows with Dr. [facility]. Echo, Oct: EF of 20-25%. Mid and anterior lateral wall, mid anterior septal wall, apex is akinetic. Basal anterior lateral wall, basal anteroseptal wall, inferior septum, mid inferior wall, mid anterior wall is hypokinetic. Coronary artery disease Hypertension Hypothyroidism Insulin dependent type 2 diabetes mellitus Ischemic colitis Myocardial infarct, old Obstructive sleep apnea The patient denies ever having a sleep study or being told he has sleep apnea Pulmonary hypertension Surgical History Surgical History History of cholecystectomy History of open reduction and internal fixation (ORIF) procedure Repair of left foot and femur fractures. History of percutaneous coronary intervention Family History Family History Father Cerebrovascular accident Diabetes mellitus Mother Diabetes mellitus Social History Social History Social History: Healthcare power of insurance defense attorney: Bhanu Yadav, son. Code status: DNR/DNI (however patient reports he would be amenable to synchronized cardioversion if needed for his AFib) Years smoked: 20 Smoking status: Former smoker Tobacco type: cigars Second hand tobacco smoke exposure: No Smoking end date: 10/22/79 Additional smoking assessment comments: Cigars for 20 years Alcohol intake: never Substance use: never Substance use type: does not use Do You Feel Safe in your Home?: Yes Lack of Transportation: No Lack of Food: Sometimes True Current Housing: I Have Housing Concerned About Future Housing: No Difficulty Paying Gas/Electric Bills: No Difficulty Paying for Meds: No Currently Unemployed: No Education: High School Diploma/GED Difficulty w/ Childcare or Family Care: No Additional living arrangements comments: with 2 sons. He and his have been since 1967. They live in [facility]. They have lived there since 2019. He ambulates with a walker and also has a scooter and manual wheelchair available. 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 Spiritual care concerns: No Meds Home Medications and Allergies Home Medications Medication Instructions Recorded Confirmed Type
--- NOTE | 2023-11-16 12:00 | WPDHPUPDATE1 ---
History and Physical Update Update Date/Time: 11/16/23 12:00 History and Physical has been reviewed, including an updated exam of the patient. There are NO changes in the patient's condition. Risks, benefits, and alternatives have been discussed and questions answered. Patient agrees to proceed with procedure.
[2023-11-16] MEDS: ceFAZolin 3 GM/D5W 100 ML 100 ML IVPB (12:52)
--- NOTE | 2023-11-16 13:10 | SUR.PREOP ---
Pt came down to pre op from IMU via bed for dialysis cath placement per Dr. Shaw @ 1118 . Pt PT:28.7/ INR 2.5. Reviewed with . Dr. Shaw stated order 2 units of FFP for pt to received. A order for Red Blood cells was placed in system. Called Blood bank and stated he need FFP, not RBC. Blood bank stated she would cancel the RBC and change to FFP and would be ready in 30-45 mins after NEW Type and Screen was sent down. Obtained blood consent and placed new PIV in Rt FA and obtained blood for type and screen, snet to lab @ 1200. PT was ready to go back to OR at 1248 and no FFP was ready. Called blood bank and they stated FFP order had been canceled, No FFP ever thawed . Updated Dr. Shaw and he stated pt can still go back to OR for dialysis placement, without FFP. Updated pre op manger and Anesthesia staff.
[2023-11-16] MEDS: LIDO 1%/EPINEPHRINE 1:100,000 20 ML VIAL 10 ML INFILTRATE (13:23)
[2023-11-16] MEDS: HEPARIN SODIUM 5,000 UNITS/ML VIAL 5000 UNITS IRRIGATION (13:24)
[2023-11-16] MEDS: HEPARIN SODIUM, PORCINE 10,000 UNITS/10 ML VIAL 4500 UNITS IV PUSH (13:27)
--- NOTE | 2023-11-16 13:43 | P.OP_ITS ---
Procedure Note - Detailed Date of Procedure 11/16/23 Pre-op Diagnosis acute renal failure Post-op Diagnosis Same Procedure Performed placement of 28 cm tunneled hemodialysis catheter in right internal jugular vein under both ultrasound and fluroscopic guidance Surgeon Ely Shaw MD Anesthesia General and Local Indications 78 y/o M currently in acute respiratory failure with worsening renal failure requiring emergent hemodialysis Findings 1st stick RIJ Description of Procedure Patient was taken to the operating room and placed in the supine position. After adequate induction of general anesthesia, the patient was prepped and draped in normal sterile fashion. A time-out was then done to verify the patient's identity as well as the procedure being performed. I began by using the SonoSite and locating the right internal jugular vein. Once this was done, I localized the overlying skin. I then made a small incision in the skin. I then gained access into the right internal jugular vein with an 18 gauge needle. At this point, I threaded the guidewire into the right internal jugular vein. Placement of the guidewire was confirmed by both ultrasound and fluoroscopic guidance. I then went ahead and measured the 28 cm tunneled dialysis catheter to our stick site in the right neck. I then localized the tract going from the right chest to the right neck. I then made a small incision in the right chest and tunneled the catheter to the right neck. I then serially dilated the right internal jugular vein under fluoroscopic guidance. Once adequately dilated, I placed the dilating sheath over the guidewire into the right internal jugular vein under fluoroscopic visualization. Once this was noted to be in good position, I removed both the guidewire and dilator, now just leaving the sheath in the vein. I then went ahead and fed the previously tunneled catheter into the sheath. Once the catheter was fed and positioned correctly, I went ahead and peeled the sheath away. Final fluoroscopic view showed the catheter in good position from its insertion point in the right chest to its termination in the atrial caval junction. It was noted there was no kinking of the catheter. I wa s able to easily draw and flush from both ports of the catheter. I placed 2.2 and 2.3 cc of final heparin flush into each port as marked. The catheter was then sutured into place and the incision in the neck was closed with 4 O Monocryl subcuticular suture. The patient tolerated the procedure well and will be transferred to the PACU in stable condition. Sterile dressing was placed on the catheter. Portable chest x-ray will be done in the PACU. Implants 28 cm tunneled hemodialysis catheter Estimated Blood Loss 10 Drains No Packing No Pathology None sent Complications No immediate complications Condition Stable Disposition PACU [facility] Billing Surgery - Charge Forward: Surgery Billing
[2023-11-16 14:01] LABS: Glucose Point of Care 180 mg/dl (65-105)
[2023-11-16] MEDS: ACETAMINOPHEN 325 MG TABLET 650 MG PO (14:31)
[2023-11-16] MEDS: ACIDOPHILUS/BULGARICUS CHEWABLE TABLET 1 TABLET BY MOUTH ×2 (14:32→16:47)
[2023-11-16] MEDS: ASCORBIC ACID 500 MG TABLET 1000 MG PO (14:32)
[2023-11-16] MEDS: allopurinoL 100 MG TABLET PO (14:32)
[2023-11-16] MEDS: FERROUS SULFATE 325 MG TABLET DR BY MOUTH (14:33)
[2023-11-16] MEDS: CALCIUM CARBONATE (OSCAL) 500 MG TABLET PO ×2 (14:33→16:47)
[2023-11-16 16:08] LABS: Hepatitis B Surface Antigen Negative (Negative)
--- NOTE | 2023-11-16 16:15 | PM.IMPN ---
Progress Note: A&P Assessment and Plan (1) Acute hypoxemic respiratory failure: Code(s): J96.01 - Acute respiratory failure with hypoxia Status: Acute Assessment and Plan: Unclear etiology. Lung exam unremarkable although he has a large body habitus. Could be due to pleural effusion and pulmonary edema due to acute kidney failure. Unable to diurese effectively so he will be going for hemodialysis. Continue to wean oxygen as tolerated. He does not complain of shortness of breath. Will check PCR for flu RSV and COVID. No sepsis no leukocytosis no fever so will hold off on antibiotics but monitor this closely. (2) Acute exacerbation of CHF (congestive heart failure): Qualifiers: Heart failure type: combined systolic and diastolic Qualified Code(s): I50.43 - Acute on chronic combined systolic (congestive) and diastolic (congestive) heart failure Code(s): I50.9 - Heart failure, unspecified Status: Acute Assessment and Plan: Patient presents back to the ED for SOB and right leg pain and edema. His condition is essentially unchanged from discharge. CT A/P 11/11: Mild pulmonary edema, small bilateral pleural effusions, small volume ascites, severe body wall edema. BNP greater than 30 K on admission which is increasing from prior admission. Note, he does have JOSE F on CKD. Echo showing EF20-25%, reduced RV systolic function and akinetic mid anterolateral wall, mid anteroseptal wall and apex. Other areas are hypokinetic. Moderate MR and TR. Trop elevated but trending down from last admission. Chest x-ray with moderate left pleural effusion Received midodrine, Albumin and one dose lasix IV on admission Fluid overload related to his renal failure and CHF and probably a right sided heart failure. Toprol XL continued. Hydralazine and Imdur resumed at lower doses. Started on oral Bumex but poor UOP so changed to IV. Cr already higher at 3.8 continues to rise to 4.4 today On 11/15 serum creatinine rise to 4.9. He still has an adequate urine output. To discuss with Nephrology and Cardiology will likely need even higher doses of diuretic. Giving 1 time albumin 50 g dose to support intravascular volume as he has severe body wall edema. On 11/16 serum creatinine continues to rise and he has poor urine output. Although, he is incontinent and we do not have good record. Received tunneled right IJ catheter and will be going for hemodialysis. Re optimize heart failure meds based on the course of his kidney failure. (3) Chronic kidney disease, stage 4 (severe): Code(s): N18.4 - Chronic kidney disease, stage 4 (severe) Status: Chronic Assessment and Plan: Creatinine 2.4-2.9 in August of 2023 Recent JOSE F superimposed on CKD with presentation on 10/28, initial creatinine 3.5. US of kidneys/retroperitoneum (10/29) showed normal sized right kidney, no hydronephrosis. Left kidney not visualized due to body habitus. CT abdomen/pelvis (11/11) showed bilateral atrophy of the kidneys with multiple bilateral exophytic cyst measuring up to 7.5 cm on the right. Hyperdense right lower pole lesion, likely hemorrhagic or proteinaceous cyst. On 11/15 creatinine bumped to 4.9. Discontinue pilocarpine and Protonix they can cause interstitial nephritis On 11/16 received right IJ tunneled catheter will be going for dialysis. Appreciate Nephrology recommendations. (4) Insulin dependent type 2 diabetes mellitus: Code(s): E11.9 - Type 2 diabetes mellitus without complications; Z79.4 - group home (current) use of insulin Status: Acute Assessment and Plan: A1c 7.2%. Continue AccuCheks covering with sliding scale. Hypoglycemia protocol available as needed. On Lantus and lispro. (5) Atrial fibrillation: Qualifiers: Atrial fibrillation type: paroxysmal Qualified Code(s): I48.0 - Paroxysmal atrial fibrillation Code(s): I48.91 - Unspecified atrial fibrillation Stat
[2023-11-16 16:22] LABS: Glucose Point of Care 189 mg/dl (65-105)
[2023-11-16 16:25] LABS: Hepatitis B Surface Anti Res Negative
[2023-11-16] MEDS: WARFARIN (*PBKC) 4 MG TABLET PO (16:47)
[2023-11-16 17:31] LABS: Influenza A QL RT-PCR Negative (Negative); Influenza B QL RT-PCR Negative (Negative); RSV RNA, RT-PCR Negative (Negative); SARS-CoV-2 RNA PCR Negative (Negative)
[2023-11-16] MEDS: ALBUMIN HUMAN 25% 12.5 GM/50ML 100 ML 50 GM (18:52)
--- NOTE | 2023-11-16 19:04 | P.PNNP_ITS ---
Progress Note: A&P Assessment and Plan (1) JOSE F (acute kidney injury): Code(s): N17.9 - Acute kidney failure, unspecified Status: Acute Assessment and Plan: * due to attempted diuresis in the context of fluid overload * unfortunately, limited diuresis noted and creatinine continues to worsen * no critical electrolytes noted but uremia and volume status remain an issue... * initiated on FIREWORKS INSPECTOR/dialysis today (2) Chronic kidney disease, stage 4 (severe): Code(s): N18.4 - Chronic kidney disease, stage 4 (severe) Status: Chronic Assessment and Plan: * creatinine had been running ~ 2ish [place] in 2021 * due to HTN, DM, CHF/cardiomyopathy, vascular disease, EILEEN/pulmonary hypertension, and age-related change * however, with recent last hospitalizations over the last several months, his creatinine has been running higher (in the 3ish range) due to diuresis and need for higher dose of diuretics to maintain his volume status * suspect some CKD progression versus the fact that he needs a higher creatinine to achieve relative euvolemia * his lower creatinine (2.9mg/dl on August 2023) may have been dilutional since he was volume overloaded at that time -- however, he was discharged on a higher dose of diuretics... * creatinine 3.2mg/dl on admission..creatinine rising with diuresis * on diuretic therapy (3) Acute exacerbation of CHF (congestive heart failure): Qualifiers: Heart failure type: combined systolic and diastolic Qualified Code(s): I50.43 - Acute on chronic combined systolic (congestive) and diastolic (congestive) heart failure Code(s): I50.9 - Heart failure, unspecified Status: Acute Assessment and Plan: * as noted by admission imaging and exam * noted depressed EF opf 25-30% on last Echo * Cardiology recommendations noted * on diuretic therapy; however, dialysis should help better with fluid removal * follow I/Os, daily weights, and respiratory status (4) Anasarca: Code(s): R60.1 - Generalized edema Status: Chronic Assessment and Plan: * due to chronic systolic heart failure and CKD progression coupled with hypoalbuminemia * transitioned to IV diuretic therapy but limited response even with use of inotropes * monitor volume status with diuresis + ultrafiltration(with dialysis) (5) Hypertension: Qualifiers: Hypertension type: primary hypertension Qualified Code(s): I10 - Essential (primary) hypertension Code(s): I10 - Essential (primary) hypertension Status: Chronic Assessment and Plan: * despite history, BP running on the low/soft side * BP medications resumed with parameters * was previously on midodrine * follow trend of hemodynamics (6) Atrial fibrillation: Qualifiers: Atrial fibrillation type: paroxysmal Qualified Code(s): I48.0 - Paroxysmal atrial fibrillation Code(s): I48.91 - Unspecified atrial fibrillation Status: Chronic Assessment and Plan: * rate control strategy * on anticoagulation with warfarin * follow INR (7) Anemia: Code(s): D64.9 - Anemia, unspecified Status: Chronic Assessment and Plan: * related to CKD * follow trend of H/H * consider JINNY if needed (8) Type 2 diabetes mellitus: Qualifiers: Diabetes mellitus complication detail: with other circulatory complications Diabetes mellitus complication status: with circulatory complication Diabetes mellitus tank terminal gauger insulin use: with nursing home use Qualified Code(s): E11.59
--- NOTE | 2023-11-16 19:04 | PM.PNNEP ---
Progress Note: A&P Assessment and Plan (1) JOSE F (acute kidney injury): Code(s): N17.9 - Acute kidney failure, unspecified Status: Acute Assessment and Plan: due to attempted diuresis in the context of fluid overload unfortunately, limited diuresis noted and creatinine continues to worsen no critical electrolytes noted but uremia and volume status remain an issue... initiated on LEGAL OPERATIONS MANAGER/dialysis today (2) Chronic kidney disease, stage 4 (severe): Code(s): N18.4 - Chronic kidney disease, stage 4 (severe) Status: Chronic Assessment and Plan: creatinine had been running ~ 2ish [place] in 2021 due to HTN, DM, CHF/cardiomyopathy, vascular disease, EILEEN/pulmonary hypertension, and age-related change however, with recent last hospitalizations over the last several months, his creatinine has been running higher (in the 3ish range) due to diuresis and need for higher dose of diuretics to maintain his volume status suspect some CKD progression versus the fact that he needs a higher creatinine to achieve relative euvolemia his lower creatinine (2.9mg/dl on August 2023) may have been dilutional since he was volume overloaded at that time -- however, he was discharged on a higher dose of diuretics... creatinine 3.2mg/dl on admission..creatinine rising with diuresis on diuretic therapy (3) Acute exacerbation of CHF (congestive heart failure): Qualifiers: Heart failure type: combined systolic and diastolic Qualified Code(s): I50.43 - Acute on chronic combined systolic (congestive) and diastolic (congestive) heart failure Code(s): I50.9 - Heart failure, unspecified Status: Acute Assessment and Plan: as noted by admission imaging and exam noted depressed EF opf 25-30% on last Echo Cardiology recommendations noted on diuretic therapy; however, dialysis should help better with fluid removal follow I/Os, daily weights, and respiratory status (4) Anasarca: Code(s): R60.1 - Generalized edema Status: Chronic Assessment and Plan: due to chronic systolic heart failure and CKD progression coupled with hypoalbuminemia transitioned to IV diuretic therapy but limited response even with use of inotropes monitor volume status with diuresis + ultrafiltration(with dialysis) (5) Hypertension: Qualifiers: Hypertension type: primary hypertension Qualified Code(s): I10 - Essential (primary) hypertension Code(s): I10 - Essential (primary) hypertension Status: Chronic Assessment and Plan: despite history, BP running on the low/soft side BP medications resumed with parameters was previously on midodrine follow trend of hemodynamics (6) Atrial fibrillation: Qualifiers: Atrial fibrillation type: paroxysmal Qualified Code(s): I48.0 - Paroxysmal atrial fibrillation Code(s): I48.91 - Unspecified atrial fibrillation Status: Chronic Assessment and Plan: rate control strategy on anticoagulation with warfarin follow INR (7) Anemia: Code(s): D64.9 - Anemia, unspecified Status: Chronic Assessment and Plan: related to CKD follow trend of H/H consider JINNY if needed (8) Type 2 diabetes mellitus: Qualifiers: Diabetes mellitus complication detail: with other circulatory complications Diabetes mellitus complication status: with circulatory complication Diabetes mellitus mcc insulin use: with lobsterman use Qualified Code(s): E11.59 - Type 2 diabetes mellitus with other circulatory complications; Z79.4 - ocean transportation intermediary (current) use of insulin Code(s): E11.9 - Type 2 diabetes mellitus without complications Status: Chronic Assessment and Plan: follow accu-cheks glycemic control per hospitalists Will continue to follow. Subjective Date/time seen: 11/16/23 19:04 Interval history: Follow-up for acute kidney injury/acute renal fail
[2023-11-16] MEDS: EPOETIN ALFA-EPBX 10,000 UNITS/ML VIAL 10000 UNITS IV PUSH (20:02)
[2023-11-16] MEDS: SODIUM CHLORIDE 0.9% IV 1,000 ML 999 ML IV CONT (20:03)
[2023-11-16 21:44] LABS: Glucose Point of Care 153 mg/dl (65-105)
[2023-11-16] MEDS: INSULIN GLARGINE (*BKC) 100 UNITS/ML SUB-Q (21:45)
[2023-11-16] MEDS: MELATONIN 3 MG TABLET PO (21:46)
[2023-11-17] VITALS (34 sets, daily range): BP systolic 90–129; BP diastolic 33–83; PULSE 89–122; RESP 16–35; TEMP 36.2–37.6; O2SAT 88–100
[2023-11-17 04:54] LABS: Hematocrit 30.9 % (42.0-52.0); Hemoglobin 9.3 g/dL (14.0-18.0); Mean Corpuscular HGB Conc 30.1 g/dl (32-36); Mean Corpuscular Hemoglobin 30.5 pg (26-34); Mean Corpuscular Volume 101.3 fl (80-100); Mean Platelet Volume 11.2 fl (7.4-10.4); Platelet Count Result 280 k/mm3 (150-375); Red Blood Count 3.05 M/mm3 (4.6-6.20); Red Cell Distribution Width 17.2 % (11.5-14.5)
[2023-11-17 05:06] LABS: INR 1.7
[2023-11-17 05:11] LABS: Alanine Aminotransferase 10 U/L (6-50); Albumin Level 3.5 g/dL (3.5-5.1); Alkaline Phosphatase 72 U/L (38-126); Anion Gap 11 mmol/L (8-16); Aspartate Amino Transferase 21 U/L (17-59); Bilirubin,Total 0.6 mg/dL (0.2-1.3); Blood Urea Nitrogen 54 mg/dL (9-20); Calcium 8.4 mg/dL (8.4-10.2); Carbon Dioxide 28 mmol/L (22-30); Chloride 97 mmol/L (98-107); Estimated CRCL calculation 18 ml/min; Estimated Glomerular Filt Rate 12; Glucose 153 mg/dL (65-110); Phosphorus 4.9 mg/dL (2.5-4.5); Potassium 4.3 mmol/L (3.4-5.0); Sodium 136 mmol/L (137-145)
[2023-11-17 08:20] LABS: Glucose Point of Care 155 mg/dl (65-105)
--- NOTE | 2023-11-17 08:37 | PM.IMPN ---
Progress Note: A&P Assessment and Plan (1) Acute hypoxemic respiratory failure: Code(s): J96.01 - Acute respiratory failure with hypoxia Status: Acute Assessment and Plan: PCR for flu RSV and COVID negative. Likely due to combination of acutely decompensated heart failure and JOSE F on CKD requiring hemodialysis. (2) Hypotension: Qualifiers: Hypotension type: hypotension due to hypovolemia Qualified Code(s): E86.1 - Hypovolemia Code(s): I95.9 - Hypotension, unspecified Status: Acute Assessment and Plan: Exacerbated by his body wall edema. We have discontinued all of his antihypertensives. Continue amiodarone. On 11/17 adding small dose midodrine and will titrate as needed. On 11/16 dialysis was initiated but stopped early and only about 500 cc taken off because of hypotension. Can give extra dose of midodrine before dialysis. Given albumin previously and today it is 3.5. (3) Acute exacerbation of CHF (congestive heart failure): Qualifiers: Heart failure type: combined systolic and diastolic Qualified Code(s): I50.43 - Acute on chronic combined systolic (congestive) and diastolic (congestive) heart failure Code(s): I50.9 - Heart failure, unspecified Status: Acute Assessment and Plan: Patient readmitted just days after being discharged for heart failure. He came back and his condition was essentially unchanged. CT 11/11: Mild pulmonary edema, small bilateral pleural effusions, small volume ascites, severe body wall edema. BNP greater than 30 K on admission which is increasing from prior admission. Echo showing EF20-25%, reduced RV systolic function and akinetic mid anterolateral wall, mid anteroseptal wall and apex. Other areas are hypokinetic. Moderate MR and TR. Chest x-ray with moderate left pleural effusion Decompensated. Patient was given large dose of Bumex and Milrinone drip, his creatinine worsened and he did not have adequate diuresis. Those have been stopped. Due to hypertension his Toprol hydralazine and Imdur have also been stopped. Was given albumin and his albumin is 3.5 now on 11/17 Will re administer chronic CHF meds as tolerated. Will give some time as dialysis just started on 11/16 (4) Chronic kidney disease, stage 4 (severe): Code(s): N18.4 - Chronic kidney disease, stage 4 (severe) Status: Chronic Assessment and Plan: Creatinine 2.4-2.9 in August of 2023 Recent JOSE F superimposed on CKD with presentation on 10/28, initial creatinine 3.5. US of kidneys/retroperitoneum (10/29) showed normal sized right kidney, no hydronephrosis. Left kidney not visualized due to body habitus. CT abdomen/pelvis (11/11) showed bilateral atrophy of the kidneys with multiple bilateral exophytic cyst measuring up to 7.5 cm on the right. Hyperdense right lower pole lesion, likely hemorrhagic or proteinaceous cyst. Appreciate Nephrology documentation and recommendation. Tunneled dialysis catheter and dialysis initiated on 11/16, however only about 500 cc was taken off as he had hypotension. Adding low-dose midodrine and can adjust as needed, defer further therapy to Nephrology. (5) Insulin dependent type 2 diabetes mellitus: Code(s): E11.9 - Type 2 diabetes mellitus without complications; Z79.4 - oil heaterman (current) use of insulin Status: Acute Assessment and Plan: A1c 7.2%. Continue AccuCheks covering with sliding scale. Hypoglycemia protocol available as needed. Continue Lantus 5 units q.h.s. (6) Atrial fibrillation: Qualifiers: Atrial fibrillation type: paroxysmal Qualified Code(s): I48.0 - Paroxysmal atrial fibrillation Code(s): I48.91 - Unspecified atrial fibrillation Status: Chronic Assessment and Plan: He has had chronic AFib. Presented with troponin of 0.097 however that was lower compared to last admission. Toprol XL has been discontinued due to hypotension.
[2023-11-17] MEDS: AMIODARONE HCL 200 MG TABLET PO (08:53)
[2023-11-17] MEDS: ACIDOPHILUS/BULGARICUS CHEWABLE TABLET 1 TABLET BY MOUTH ×2 (08:53→16:32)
[2023-11-17] MEDS: ASCORBIC ACID 500 MG TABLET 1000 MG PO (08:53)
[2023-11-17] MEDS: FERROUS SULFATE 325 MG TABLET DR BY MOUTH (08:54)
[2023-11-17] MEDS: CLOPIDOGREL BISULFATE 75 MG TABLET PO (08:54)
[2023-11-17] MEDS: MIDODRINE HCL 2.5 MG TABLET PO ×2 (08:54→16:32)
[2023-11-17] MEDS: allopurinoL 100 MG TABLET PO (08:54)
[2023-11-17] MEDS: CALCIUM CARBONATE (OSCAL) 500 MG TABLET PO ×2 (08:54→16:32)
[2023-11-17] MEDS: LIDOCAINE 5% PATCH 1 PATCH TRANSDERM (08:55)
[2023-11-17] MEDS: TOLNAFTATE 1% POWDER 45 GM BTL 1 APPLIC TOPICAL ×2 (08:57→23:48)
[2023-11-17 12:01] LABS: Glucose Point of Care 200 mg/dl (65-105)
[2023-11-17] MEDS: BUMETANIDE INJ 2.5 MG/10 ML VIAL 2 MG IV PUSH (14:46)
--- NOTE | 2023-11-17 14:58 | PC.NURSE ---
Pt states I don't feel well, I can't breath . BP 111/68. Dr. Sosa at bedside. CXR and ABG ordered STAT. Pt placed on bipap.
[2023-11-17 15:11] LABS: Alveolar/Arterial O2 Gradient 98.7 mmHg; Base Excess ABG -3.9 mEq/l (+/-2.0); Fractional Inspired Oxygen 28 %; HCO3 ABG 20.3 mEq/l (22.0-26.0); Oxygen Content ABG 13.6 %vol (16.0-22.0); Oxygen Saturation ABG 91.7 % (95.0-100.0); Oxyhemoglobin 89.5 % THb (90.0-100.0); PCO2 ABG 33.7 mmHg (35.0-45.0); PO2 ABG 61.2 mmHg (80.0-100.0); PO2 FiO2 Ratio Arterial Blood 2.19 %; Total Hemoglobin 10.8 g/dL (12.0-18.0); pH ABG 7.397 (7.350-7.450)
[2023-11-17 15:12] LABS: Device NASAL CANNULA; Modified Allen's Test Pass; Site Drawn LEFT RADIAL
[2023-11-17] MEDS: ACETAMINOPHEN 325 MG TABLET 650 MG PO (16:20)
[2023-11-17] MEDS: WARFARIN (*PBKC) 4 MG TABLET PO (16:32)
[2023-11-17] MEDS: traMADol HCL (*CRX) 25 MG TABLET PO (16:53)
[2023-11-17] MEDS: BUMETANIDE INJ 1 MG/4 ML VIAL 2 MG IV PUSH (16:54)
[2023-11-17 17:08] LABS: Glucose Point of Care 188 mg/dl (65-105)
--- NOTE | 2023-11-17 20:04 | PC.NURSE ---
Pt transported by bed to dialysis at 2001 on [address].
[2023-11-17] MEDS: EPOETIN ALFA-EPBX 10,000 UNITS/ML VIAL 10000 UNITS IV PUSH (21:44)
--- NOTE | 2023-11-17 22:30 | P.PNNP_ITS ---
Progress Note: A&P Assessment and Plan (1) JOSE F (acute kidney injury): Code(s): N17.9 - Acute kidney failure, unspecified Status: Acute Assessment and Plan: * due to attempted diuresis in the context of fluid overload * unfortunately, limited diuresis noted and creatinine continues to worsen * will get HD later today. did okay with yesterday's dialysis. (2) Chronic kidney disease, stage 4 (severe): Code(s): N18.4 - Chronic kidney disease, stage 4 (severe) Status: Chronic Assessment and Plan: * creatinine had been running ~ 2ish [place] in 2021 * due to HTN, DM, CHF/cardiomyopathy, vascular disease, EILEEN/pulmonary hypertension, and age-related change * however, with recent last hospitalizations over the last several months, his creatinine has been running higher (in the 3ish range) due to diuresis and need for higher dose of diuretics to maintain his volume status * now he is dialysis dependant. HD yesterday and more today later. (3) Acute exacerbation of CHF (congestive heart failure): Qualifiers: Heart failure type: combined systolic and diastolic Qualified Code(s): I50.43 - Acute on chronic combined systolic (congestive) and diastolic (congestive) heart failure Code(s): I50.9 - Heart failure, unspecified Status: Acute Assessment and Plan: * as noted by admission imaging and exam * noted depressed EF opf 25-30% on last Echo * Cardiology recommendations noted * continue dialysis to remove fluid but also will continue loop diuretics. * discussed wiht Dr Sosa. (4) Anasarca: Code(s): R60.1 - Generalized edema Status: Chronic Assessment and Plan: * due to chronic systolic heart failure and CKD progression coupled with hypoalbuminemia * IV diuretics and ultrafiltration (5) Hypertension: Qualifiers: Hypertension type: primary hypertension Qualified Code(s): I10 - Essential (primary) hypertension Code(s): I10 - Essential (primary) hypertension Status: Chronic Assessment and Plan: * despite history, BP running on the low/soft side * BP running 109 to 130. * stopped doxazosin and hydralazine. * continue losartan and metoprolol since both good for the heart. (6) Atrial fibrillation: Qualifiers: Atrial fibrillation type: paroxysmal Qualified Code(s): I48.0 - Paroxysmal atrial fibrillation Code(s): I48.91 - Unspecified atrial fibrillation Status: Chronic Assessment and Plan: * HR 84 to 111 * on anticoagulation with warfarin * follow INR per hosptialist (7) Anemia: Code(s): D64.9 - Anemia, unspecified Status: Chronic Assessment and Plan: * related to CKD * Hb 9.3 * EPO on dialysis today (8) Type 2 diabetes mellitus: Qualifiers: Diabetes mellitus detention insulin use: with watermelon inspector use Diabetes mellitus complication status: with circulatory complication Diabetes mellitus complication detail: with other circulatory complications Qualified Code(s): E11.59 - Type 2 diabetes mellitus with other circulatory complications; Z79.4 - extermination supervisor (current) use of insulin Code(s): E11.9 - Type 2 diabetes mellitus without complications Status: Chronic Assessment and Plan: * follow accu-cheks * glycemic control per hospitalists Subjective Date/time seen: 11/17/23 22:30 Interval history: alert. some sob. still very swollen. Exam Narrative: General: large elder
--- NOTE | 2023-11-17 22:30 | PM.PNNEP ---
Progress Note: A&P Assessment and Plan (1) JOSE F (acute kidney injury): Code(s): N17.9 - Acute kidney failure, unspecified Status: Acute Assessment and Plan: due to attempted diuresis in the context of fluid overload unfortunately, limited diuresis noted and creatinine continues to worsen will get HD later today. did okay with yesterday's dialysis. (2) Chronic kidney disease, stage 4 (severe): Code(s): N18.4 - Chronic kidney disease, stage 4 (severe) Status: Chronic Assessment and Plan: creatinine had been running ~ 2ish [place] in 2021 due to HTN, DM, CHF/cardiomyopathy, vascular disease, EILEEN/pulmonary hypertension, and age-related change however, with recent last hospitalizations over the last several months, his creatinine has been running higher (in the 3ish range) due to diuresis and need for higher dose of diuretics to maintain his volume status now he is dialysis dependant. HD yesterday and more today later. (3) Acute exacerbation of CHF (congestive heart failure): Qualifiers: Heart failure type: combined systolic and diastolic Qualified Code(s): I50.43 - Acute on chronic combined systolic (congestive) and diastolic (congestive) heart failure Code(s): I50.9 - Heart failure, unspecified Status: Acute Assessment and Plan: as noted by admission imaging and exam noted depressed EF opf 25-30% on last Echo Cardiology recommendations noted continue dialysis to remove fluid but also will continue loop diuretics. discussed wiht Dr Sosa. (4) Anasarca: Code(s): R60.1 - Generalized edema Status: Chronic Assessment and Plan: due to chronic systolic heart failure and CKD progression coupled with hypoalbuminemia IV diuretics and ultrafiltration (5) Hypertension: Qualifiers: Hypertension type: primary hypertension Qualified Code(s): I10 - Essential (primary) hypertension Code(s): I10 - Essential (primary) hypertension Status: Chronic Assessment and Plan: despite history, BP running on the low/soft side BP running 109 to 130. stopped doxazosin and hydralazine. continue losartan and metoprolol since both good for the heart. (6) Atrial fibrillation: Qualifiers: Atrial fibrillation type: paroxysmal Qualified Code(s): I48.0 - Paroxysmal atrial fibrillation Code(s): I48.91 - Unspecified atrial fibrillation Status: Chronic Assessment and Plan: HR 84 to 111 on anticoagulation with warfarin follow INR per hosptialist (7) Anemia: Code(s): D64.9 - Anemia, unspecified Status: Chronic Assessment and Plan: related to CKD Hb 9.3 EPO on dialysis today (8) Type 2 diabetes mellitus: Qualifiers: Diabetes mellitus correction insulin use: with correction use Diabetes mellitus complication status: with circulatory complication Diabetes mellitus complication detail: with other circulatory complications Qualified Code(s): E11.59 - Type 2 diabetes mellitus with other circulatory complications; Z79.4 - detention (current) use of insulin Code(s): E11.9 - Type 2 diabetes mellitus without complications Status: Chronic Assessment and Plan: follow accu-cheks glycemic control per hospitalists Subjective Date/time seen: 11/17/23 22:30 Interval history: alert. some sob. still very swollen. Exam Narrative: General: large elderly male in NAD Heart: IRRR, normal S1 and S2; no rub or gallop Lungs: coarse breath sounds and decreased at bases Abdomen: soft, mild distension; + BS Extremities: no cyanosis or clubbing; 2+ bilateral edema Skin: No nodules Objective Data Vital Signs Vital Signs: Vital Signs - 24 hr 11/16/23 23:30 11/16/23 23:55 11/17/23 00:00 Temperature 97.0 F L Pulse Rate 107 H 104 H Respiratory Rate 20 Blood Pressure 85/68 L Pulse Oximetry 96 96 Oxyge
--- NOTE | 2023-11-17 23:20 | PC.NURSE ---
Pt retrieved from dialysis at 2320.
[2023-11-17] MEDS: INSULIN GLARGINE (*BKC) 100 UNITS/ML SUB-Q (23:47)
[2023-11-17] MEDS: MELATONIN 3 MG TABLET PO (23:47)
[2023-11-17 23:57] LABS: Glucose Point of Care 148 mg/dl (65-105)
[2023-11-18] VITALS (22 sets, daily range): BP systolic 89–145; BP diastolic 55–86; PULSE 82–117; RESP 16–32; TEMP 36.4–38.4; O2SAT 92–98
[2023-11-18 05:06] LABS: Hematocrit 35.1 % (42.0-52.0); Hemoglobin 10.4 g/dL (14.0-18.0); Mean Corpuscular HGB Conc 29.6 g/dl (32-36); Mean Corpuscular Hemoglobin 30.4 pg (26-34); Mean Corpuscular Volume 102.6 fl (80-100); Platelet Count Result 305 k/mm3 (150-375); Red Blood Count 3.42 M/mm3 (4.6-6.20); Red Cell Distribution Width 17.5 % (11.5-14.5); White Blood Count 14.3 K/mm3 (4.5-10.0)
[2023-11-18] MEDS: LEVOTHYROXINE SODIUM 100 MCG TABLET PO (05:33)
[2023-11-18 05:34] LABS: Alanine Aminotransferase 170 U/L (6-50); Albumin Level 3.8 g/dL (3.5-5.1); Alkaline Phosphatase 83 U/L (38-126); Anion Gap 14 mmol/L (8-16); Aspartate Amino Transferase 531 U/L (17-59); Bilirubin,Total 0.9 mg/dL (0.2-1.3); Blood Urea Nitrogen 46 mg/dL (9-20); Calcium 8.7 mg/dL (8.4-10.2); Carbon Dioxide 24 mmol/L (22-30); Chloride 100 mmol/L (98-107); Estimated CRCL calculation 21 ml/min; Estimated Glomerular Filt Rate 15; Glucose 154 mg/dL (65-110); Phosphorus 5.5 mg/dL (2.5-4.5); Potassium 4.7 mmol/L (3.4-5.0); Sodium 138 mmol/L (137-145)
[2023-11-18 05:48] LABS: INR 1.6; Prothrombin Time 19.8 Seconds (11.1-14.7)
--- NOTE | 2023-11-18 08:43 | PM.IMPN ---
Progress Note: A&P Assessment and Plan (1) Acute hypoxemic respiratory failure: Code(s): J96.01 - Acute respiratory failure with hypoxia Status: Acute Assessment and Plan: - PCR for flu RSV and COVID negative. - remains on 2-3 L nasal cannula. Continue to wean as tolerated - he has severe fluid overload from his kidney failure. Continue dialysis. - aspiration pneumonia on 11/18 patient had a choking episode. He has developed fever shortly after and leukocytosis. Treat the sepsis with Unasyn. Trend procalcitonin, this may be elevated due to his decreased kidney clearance. Check blood cultures (2) Hypotension: Qualifiers: Hypotension type: hypotension due to hypovolemia Qualified Code(s): E86.1 - Hypovolemia Code(s): I95.9 - Hypotension, unspecified Status: Acute Assessment and Plan: Exacerbated by his body wall edema and hypoalbuminemia. We have discontinued all of his antihypertensives to leave room for fluid taken off during dialysis. Continue amiodarone only. Increase midodrine from 2.5 mg b.i.d. to 5 mg b.i.d. as he still remains on the lower side. (3) Acute exacerbation of CHF (congestive heart failure): Qualifiers: Heart failure type: combined systolic and diastolic Qualified Code(s): I50.43 - Acute on chronic combined systolic (congestive) and diastolic (congestive) heart failure Code(s): I50.9 - Heart failure, unspecified Status: Acute Assessment and Plan: Patient readmitted just days after being discharged for heart failure. CT 11/11: Mild pulmonary edema, small bilateral pleural effusions, small volume ascites, severe body wall edema. BNP greater than 30 K on admission which is increasing from prior admission. Echo showing EF20-25%, reduced RV systolic function and akinetic mid anterolateral wall, mid anteroseptal wall and apex. Other areas are hypokinetic. Moderate MR and TR. Chest x-ray with moderate left pleural effusion Patient was given large dose of Bumex and Milrinone drip, his creatinine worsened and he did not have adequate diuresis. Those have been stopped. Due to hypertension his Toprol hydralazine and Imdur have also been stopped. Was given albumin and his albumin is 3.5 now on 11/17. He remains in acute decompensation although this is more so due to his acute renal failure. Will re administer chronic CHF meds as tolerated, he saw his low blood pressure. (4) Chronic kidney disease, stage 4 (severe): Code(s): N18.4 - Chronic kidney disease, stage 4 (severe) Status: Chronic Assessment and Plan: Creatinine 2.4-2.9 in August of 2023 Recent JOSE F superimposed on CKD with presentation on 10/28, initial creatinine 3.5. US of kidneys/retroperitoneum (10/29) showed normal sized right kidney, no hydronephrosis. Left kidney not visualized due to body habitus. CT abdomen/pelvis (11/11) showed bilateral atrophy of the kidneys with multiple bilateral exophytic cyst measuring up to 7.5 cm on the right. Hyperdense right lower pole lesion, likely hemorrhagic or proteinaceous cyst. Appreciate Nephrology documentation and recommendation. Tunneled dialysis catheter and dialysis initiated on 11/16, however only about 500 cc was taken off as he had hypotension. On 11/17 he had a better dialysis session with 1.4 L taken off. Subsequently his dyspnea improved On 11/18 continue Nephrology recommendations, currently dependent on dialysis (5) Insulin dependent type 2 diabetes mellitus: Code(s): E11.9 - Type 2 diabetes mellitus without complications; Z79.4 - prison (current) use of insulin Status: Acute Assessment and Plan: A1c 7.2%. Continue AccuCheks covering with sliding scale. Hypoglycemia protocol available as needed. Continue Lantus 5 units q.h.s. (6) Atrial fibrillation: Qualifiers: Atrial fibrillation type: paroxysmal Qualified Code(s): I48.0 - Paroxysmal atrial fibrillati
[2023-11-18] MEDS: LIDOCAINE 5% PATCH 1 PATCH TRANSDERM (09:13)
[2023-11-18] MEDS: CLOPIDOGREL BISULFATE 75 MG TABLET PO (09:14)
[2023-11-18] MEDS: ACIDOPHILUS/BULGARICUS CHEWABLE TABLET 1 TABLET BY MOUTH ×2 (09:14→16:42)
[2023-11-18] MEDS: CALCIUM CARBONATE (OSCAL) 500 MG TABLET PO ×2 (09:14→16:43)
[2023-11-18] MEDS: allopurinoL 100 MG TABLET PO (09:14)
[2023-11-18] MEDS: FERROUS SULFATE 325 MG TABLET DR BY MOUTH (09:14)
[2023-11-18] MEDS: ASCORBIC ACID 500 MG TABLET 1000 MG PO (09:14)
[2023-11-18] MEDS: TOLNAFTATE 1% POWDER 45 GM BTL 1 APPLIC TOPICAL ×2 (09:16→20:27)
[2023-11-18] MEDS: AMPICILLIN SULB 3 GM/NS 100 ML 3 GM/100 ML VIAL IVPB ×2 (09:19→20:17)
[2023-11-18] MEDS: MIDODRINE HCL 2.5 MG TABLET 5 MG PO ×2 (09:19→16:43)
[2023-11-18] MEDS: AMIODARONE HCL 200 MG TABLET PO (10:35)
[2023-11-18] MEDS: BUMETANIDE INJ 1 MG/4 ML VIAL 2 MG IV PUSH ×2 (10:36→16:42)
[2023-11-18 12:09] LABS: Glucose Point of Care 169 mg/dl (65-105)
[2023-11-18 12:09] LABS: Glucose Point of Care 158 mg/dl (65-105)
--- NOTE | 2023-11-18 12:22 | PCSTNOTE ---
Please refer to the Bedside Swallow Evaluation in the EMR. Please note, silent aspiration cannot be ruled out at bedside.
--- NOTE | 2023-11-18 12:28 | P.PNNP_ITS ---
Progress Note: A&P Assessment and Plan (1) JOSE F (acute kidney injury): Code(s): N17.9 - Acute kidney failure, unspecified Status: Acute Assessment and Plan: * due to attempted diuresis in the context of fluid overload * Will remove fluid with dialysis. * Possibly his heart will work better without the fluid on board. (2) Chronic kidney disease, stage 4 (severe): Code(s): N18.4 - Chronic kidney disease, stage 4 (severe) Status: Chronic Assessment and Plan: * creatinine had been running ~ 2ish [place] in 2021 * due to HTN, DM, CHF/cardiomyopathy, vascular disease, EILEEN/pulmonary hypertension, and age-related change * This still may be acute on chronic dialysis. Hopefully he will recover to his former level. (3) Acute exacerbation of CHF (congestive heart failure): Qualifiers: Heart failure type: combined systolic and diastolic Qualified Code(s): I50.43 - Acute on chronic combined systolic (congestive) and diastolic (congestive) heart failure Code(s): I50.9 - Heart failure, unspecified Status: Acute Assessment and Plan: * as noted by admission imaging and exam * noted depressed EF of 25-30% on last Echo * Cardiology recommendations noted * He is getting bumetanide 2mg IV twice a day. * Will remove more fluid on dialysis tomorrow * To help remove extra fluid will just dry ultrafiltrate tomorrow. (4) Anasarca: Code(s): R60.1 - Generalized edema Status: Chronic Assessment and Plan: * due to chronic systolic heart failure and CKD progression coupled with hypoalbuminemia * IV diuretics and ultrafiltration (5) Hypertension: Qualifiers: Hypertension type: primary hypertension Qualified Code(s): I10 - Essential (primary) hypertension Code(s): I10 - Essential (primary) hypertension Status: Chronic Assessment and Plan: * despite history, BP running on the low/soft side * BP dropped overnight so losartan and metoprolol stopped. * stopped doxazosin and hydralazine. * now on midodrine. (6) Atrial fibrillation: Qualifiers: Atrial fibrillation type: paroxysmal Qualified Code(s): I48.0 - Paroxysmal atrial fibrillation Code(s): I48.91 - Unspecified atrial fibrillation Status: Chronic Assessment and Plan: * HR 84 to 111 * on anticoagulation with warfarin * follow INR per hospitalist (7) Anemia: Code(s): D64.9 - Anemia, unspecified Status: Chronic Assessment and Plan: * related to CKD * Hb 10.4 * EPO on dialysis yesterday (8) Type 2 diabetes mellitus: Qualifiers: Diabetes mellitus detention insulin use: with watermelon inspector use Diabetes mellitus complication status: with circulatory complication Diabetes mellitus complication detail: with other circulatory complications Qualified Code(s): E11.59 - Type 2 diabetes mellitus with other circulatory complications; Z79.4 - terminal clerk (current) use of insulin Code(s): E11.9 - Type 2 diabetes mellitus without complications Status: Chronic Assessment and Plan: * follow accu-cheks * glycemic control per hospitalists Subjective Date/time seen: 11/18/23 12:28 Interval history: Patient is alert. He feels okay. He is weak. Less short of breath than yesterday Exam Narrative: General: large elderly male in NAD Heart: IRRR, normal S1 and S2; no rub or gallop Lungs: coarse breath sounds and decreased at bases Abdom
--- NOTE | 2023-11-18 12:28 | PM.PNNEP ---
Progress Note: A&P Assessment and Plan (1) JOSE F (acute kidney injury): Code(s): N17.9 - Acute kidney failure, unspecified Status: Acute Assessment and Plan: due to attempted diuresis in the context of fluid overload Will remove fluid with dialysis. Possibly his heart will work better without the fluid on board. (2) Chronic kidney disease, stage 4 (severe): Code(s): N18.4 - Chronic kidney disease, stage 4 (severe) Status: Chronic Assessment and Plan: creatinine had been running ~ 2ish [place] in 2021 due to HTN, DM, CHF/cardiomyopathy, vascular disease, EILEEN/pulmonary hypertension, and age-related change This still may be acute on chronic dialysis. Hopefully he will recover to his former level. (3) Acute exacerbation of CHF (congestive heart failure): Qualifiers: Heart failure type: combined systolic and diastolic Qualified Code(s): I50.43 - Acute on chronic combined systolic (congestive) and diastolic (congestive) heart failure Code(s): I50.9 - Heart failure, unspecified Status: Acute Assessment and Plan: as noted by admission imaging and exam noted depressed EF of 25-30% on last Echo Cardiology recommendations noted He is getting bumetanide 2mg IV twice a day. Will remove more fluid on dialysis tomorrow To help remove extra fluid will just dry ultrafiltrate tomorrow. (4) Anasarca: Code(s): R60.1 - Generalized edema Status: Chronic Assessment and Plan: due to chronic systolic heart failure and CKD progression coupled with hypoalbuminemia IV diuretics and ultrafiltration (5) Hypertension: Qualifiers: Hypertension type: primary hypertension Qualified Code(s): I10 - Essential (primary) hypertension Code(s): I10 - Essential (primary) hypertension Status: Chronic Assessment and Plan: despite history, BP running on the low/soft side BP dropped overnight so losartan and metoprolol stopped. stopped doxazosin and hydralazine. now on midodrine. (6) Atrial fibrillation: Qualifiers: Atrial fibrillation type: paroxysmal Qualified Code(s): I48.0 - Paroxysmal atrial fibrillation Code(s): I48.91 - Unspecified atrial fibrillation Status: Chronic Assessment and Plan: HR 84 to 111 on anticoagulation with warfarin follow INR per hospitalist (7) Anemia: Code(s): D64.9 - Anemia, unspecified Status: Chronic Assessment and Plan: related to CKD Hb 10.4 EPO on dialysis yesterday (8) Type 2 diabetes mellitus: Qualifiers: Diabetes mellitus mcc insulin use: with long term acute care registered nurse use Diabetes mellitus complication status: with circulatory complication Diabetes mellitus complication detail: with other circulatory complications Qualified Code(s): E11.59 - Type 2 diabetes mellitus with other circulatory complications; Z79.4 - [facility] (current) use of insulin Code(s): E11.9 - Type 2 diabetes mellitus without complications Status: Chronic Assessment and Plan: follow accu-cheks glycemic control per hospitalists Subjective Date/time seen: 11/18/23 12:28 Interval history: Patient is alert. He feels okay. He is weak. Less short of breath than yesterday Exam Narrative: General: large elderly male in NAD Heart: IRRR, normal S1 and S2; no rub or gallop Lungs: coarse breath sounds and decreased at bases Abdomen: Bowel sounds positive soft Extremities: 2+ bilateral edema Skin: No nodules or skin rash Objective Data Vital Signs Vital Signs: Vital Signs - 24 hr 11/17/23 15:19 11/17/23 16:24 11/17/23 14:00 Temperature 98.6 F Pulse Rate 105 H 118 H 111 H Respiratory Rate 28 H 35 H Blood Pressure 111/68 Pulse Oximetry 93 95 Oxygen Delivery BiPAP Oxygen Flow Rate Fraction of Inspired Oxygen 11/17/23 16:00 11/17/23 17:44 11/17/23 14:00 Temperature
--- NOTE | 2023-11-18 14:51 | PCOTNOTE ---
Per RN, pt is not appropriate to be seen for Occupational Therapy treatment today. Will continue per poc duration/frequency when medically appropriate.
--- NOTE | 2023-11-18 15:33 | PCPTNOTE ---
Patient unable to be seen for PT this date, Per LITA RN advised not to see patient for therapy.
[2023-11-18 16:28] LABS: Glucose Point of Care 166 mg/dl (65-105)
[2023-11-18] MEDS: WARFARIN (*PBKC) 4 MG TABLET PO (16:43)
[2023-11-18] MEDS: MELATONIN 3 MG TABLET PO (20:17)
[2023-11-18] MEDS: INSULIN GLARGINE (*BKC) 100 UNITS/ML SUB-Q (20:17)
[2023-11-18 21:16] LABS: Glucose Point of Care 153 mg/dl (65-105)
--- NOTE | 2023-11-19 00:08 | PC.NURSE ---
Patient became bardycardic went in to assess patient patient see expiration report. POA made aware.
--- NOTE | 2023-11-19 00:15 | PC.NURSE ---
nurse spoke with POA will sampler pickup patient belonging on 11/19/23
[2023-11-19 19:31] LABS: Hepatitis B Core Ab Total Nonreactive (Nonreactive)
--- NOTE | 2023-11-21 07:37 | P.DN_ITS ---
Discharge Summary Date and Time Date of : 11/18/23 Time of : 22:56 Provider Pronounced By: lucina kearney Probable Cause of Probable Cause of : Acute respiratory failure Summary Hospital Course: A 78-year-old male with a history of atrial fibrillation on warfarin, aortic stenosis, CKD stage 4, combined systolic-diastolic CHF, CAD status post stents, hypertension, hypothyroidism, insulin-dependent diabetes mellitus, ischemic colitis, EILEEN, pulmonary hypertension, obesity presented with shortness of breath and swelling of the lower extremities. He was diagnosed with acute renal failure on CKD, acutely decompensated heart failure and acute hypoxic respiratory failure. The patient wished to be DNR, also refusing noninvasive ventilation and at 10:56 p.m. on 11/18/2023 entered asystole and . Additional Data Confirmation of as documented by pronouncing clinician: Pupillary Reflex, Palpable Pulses, Response to Stimuli, Heart Tones and Breath Sounds Name of Provider Notified: lupe Time Provider Notified: 22:56 Provider Requests Autopsy: No Family Requests Autopsy: No Waste Cotton Cleaner Notified: Yes Date [facility] Notified of : 11/18/23 Time [facility] Notified of : 23:09
--- NOTE | 2023-12-14 15:41 | WPDANESEPPF ---
Anes - Initial Pre Proc Eval Procedure: Operation Date: 11/16/23 12:30 Proposed Procedures p Insertion Tunneled Dialysis Catheter - Ely Shaw MD Date/Time: 12/14/23 15:41 Surgeon: Cathie Sosa MD Pre Op Diagnosis: CHF Exacerbation Patient Data Age: 78 Gender: M Height: 1.83 m Weight: 140.2 kg Last Vital Signs Temp 97.5 F L 11/18/23 20:51 Pulse 82 11/18/23 22:00 Resp 20 11/18/23 20:51 BP 145/65 H 11/18/23 20:51 Pulse Ox 93 11/18/23 21:18 O2 Del Method Nasal Cannula 11/18/23 21:18 O2 Flow Rate 5 11/18/23 21:18 FiO2 100 11/17/23 20:04 Allergies Allergy/AdvReac Type Severity Reaction Status Date / Time sitagliptin Allergy Unknown Verified 11/02/23 13:57 exenatide [From Byetta] AdvReac Gastrointestinal Verified 11/02/23 13:57 Upset Aacvrkk-TJS-JgJ Reductase AdvReac Cramping Verified 11/02/23 13:57 Inhibitor of the [Lgfvkck-Niv-Bxk Reductase Muscles Inhibitor] Home Medications Medication Instructions Recorded Confirmed Type clopidogrel 75 mg tablet 75 mg PO DAILY 04/12/21 11/12/23 History isosorbide mononitrate 120 mg 120 mg PO DAILY 04/12/21 11/12/23 History tablet,extended release 24 hr acetaminophen 325 mg tablet 650 mg PO BID PRN Pain (Scale 01/27/22 11/12/23 History Score 1-3) alirocumab 150 mg/mL subcutaneous 150 mg subcut [id number] 01/27/22 11/12/23 History pen injector (Praluent Pen) amiodarone 200 mg tablet 200 mg PO DAILY 01/27/22 11/12/23 History hydralazine 100 mg tablet 50 mg PO TID 01/27/22 11/12/23 History levothyroxine 112 mcg tablet 100 mcg PO DAILY 01/27/22 11/12/23 History (Euthyrox) losartan 50 mg tablet 25 mg PO DAILY 01/27/22 11/12/23 History pantoprazole 40 mg tablet,delayed 40 mg PO DAILY 01/27/22 11/12/23 History release albuterol sulfate 2.5 mg/3 mL 2.5 mg (3 mL) inhalation Q4HRT PRN 01/03/23 11/12/23 Rx (0.083 %) solution for nebulization Shortness Of Breath #75 mL ferrous sulfate 325 mg (65 mg 325 mg PO DAILY 02/17/23 11/12/23 History iron) tablet nitroglycerin 0.4 mg sublingual 0.4 mg sublingual Q5M PRN Chest 02/17/23 11/12/23 History tablet Pain doxazosin 2 mg tablet 2 mg PO QHS 09/11/23 11/12/23 History fluticasone propionate 50 1 spray intranasal DAILY 09/11/23 11/12/23 History mcg/actuation nasal spray,suspension pilocarpine HCl 5 mg tablet 5 mg PO TID 09/11/23 11/12/23 History Lactobacillus 1 cap PO BID 09/17/23 11/12/23 History acidophilus-Bifidobac.animalis 2.5 billion cell capsule (Daily Probiotic) ascorbic acid (vitamin C) 1,000 mg 1 g PO DAILY 09/17/23 11/12/23 History tablet potassium chloride 20 mEq 20 meq PO DAILY 09/17/23 11/12/23 History tablet,extended release(part/cryst) calcium 500 mg tablet 500 mg PO BID 10/29/23 11/12/23 History ondansetron 8 mg disintegrating 4 mg PO TID PRN Nausea And Vomiting 10/29/23 11/12/23 History tablet saliva substitute combo no.9 15 ml mucous membrane QID PRN Dry 10/29/23 11/12/23 History (Biotene Dry Mouth Oral Rinse Mouth mouthwash) allopurinol 300 mg tablet 100 mg PO DAILY #10 tabs 11/10/23 11/12/23 Rx bumetanide 1 mg tablet 2.5 mg PO DAILY #90 tabs 11/10/23 11/12/23 Rx insulin detemir U-100 100 unit/mL 5 unit (0.05 mL) subcut HS #10 mL 11/10/23 11/12/23 Rx subcutaneous solution (Levemir U-100 Insulin) lidocaine 5 % topical patch 1 patch transdermal DAILY #15 ea 11/10/23 11/12/23 Rx (Lidoderm) metoprolol succinate 25 mg 25 mg PO DAILY #30 tabs 11/10/23 11/12/23 Rx tablet,extended release 24 hr tolnaftate 1 % topical powder 1 applic topical Q12HR #45 grams 11/10/23 11/12/23 Rx warfarin 5 mg tablet 4 mg PO QHS #20 tabs 11/10/23 11/12/23 Rx Patient hx anesthesia problems: none Family hx anesthesia problems: none Results Review: All pre-operative results and documents have been reviewed as part of the pre-operative evaluation. [facility] Past Medical History Medical History (Reviewed 11/16/23 @
== END 2023-11-18 22:56 | disposition expired | DRG 291 ==
LOC: ANHED 17:05 → ANHIMU 22:40
PROVIDERS: Emergency Medicine; Internal Medicine; Internal Medicine Nephrology; Student in an Organized Health Care Education/Training Program; Surgery; Admitting Provider Hospitalist; Emergency Provider Emergency Medicine; PCP Registered Nurse; Visit Provider General Practice
PROC: 0JH63XZ Insertion of Tunneled Vascular Access Device into Chest Subcutaneous Tissue and Fascia, Percutaneous Approach (ICD-10-PCS; CPT 36908; principal; 2023-11-16 12:30)
DX: I13.0 Hypertensive heart and chronic kidney disease with heart failure and stage 1 through stage 4 chronic kidney disease, or unspecified chronic kidney disease (principal); I50.43 Acute on chronic combined systolic (congestive) and diastolic (congestive) heart failure; J96.01 Acute respiratory failure with hypoxia; J69.0 Pneumonitis due to inhalation of food and vomit; N18.4 Chronic kidney disease, stage 4 (severe); I48.20 Chronic atrial fibrillation, unspecified; Z68.41 Body mass index [BMI] 40.0-44.9, adult; N17.9 Acute kidney failure, unspecified; I95.3 Hypotension of hemodialysis; I35.0 Nonrheumatic aortic (valve) stenosis; I27.20 Pulmonary hypertension, unspecified; I25.10 Atherosclerotic heart disease of native coronary artery without angina pectoris; D63.1 Anemia in chronic kidney disease; E03.9 Hypothyroidism, unspecified; E66.01 Morbid (severe) obesity due to excess calories; E11.22 Type 2 diabetes mellitus with diabetic chronic kidney disease; K57.30 Diverticulosis of large intestine without perforation or abscess without bleeding; R60.1 Generalized edema; G47.33 Obstructive sleep apnea (adult) (pediatric); Z20.822 Contact with and (suspected) exposure to COVID-19; I25.2 Old myocardial infarction; Z79.02 Long term (current) use of antithrombotics/antiplatelets; Z79.01 Long term (current) use of anticoagulants
CPT/HCPCS: 36415; 36600; 71045; 71046; 74176; 77001; 80053; 80069; 81001; 82570; 82805; 82948; 83036; 83690; 83735; 83880; 84100; 84300; 84484; 85025; 85027; 85610; 85730; 86704; 86706; 86850; 86900; 86901; 87040; 87086; 87088; 87340; 87637; 92610; 93005; 94002; 96365; 96366; 96375; 97110; 97161; 97166; 97530; 99285; A9270; C1750; G0257; G0378; J0295; J0690; J1644; J1815; J1939; J1940; J2260; J2704; J7030; J7040; P9047; Q5105